=== PATIENT | male | born 1935 | race Caucasian/White ===

== ENCOUNTER 2017-01-23 15:07 | Inpatient (IN) | payer MEDICARE, OTHER ==
[~2017-01-23] VITALS: Ht 185.4 cm; Wt 89.0 kg
[~2017-01-23 15:07] MED LIST: ASPIRIN EC81 MG PO; B-50 COMPLEX1 EAC1 PO; CARVEDILOL25 MG PO; FLEXERIL10 MG PO; FUROSEMIDE40 MG PO; ISOSORBIDE MONO30 MG PO; LASIX40 MG PO; LOVASTATIN40 MG PO; MAG-OXIDE400 MG PO; MIRAPEX0.5 MG PO; NITROGLYCERIN0.4 MG SL; PLAVIX75 MG PO; POTASSIUM99 MG PO; PREVACID30 MG PO; SLOW-MAG71.5 MG PO; SYNTHROID100 MCG PO; ZYLOPRIM300 MG PO; ZYRTEC10 MG PO
[2017-01-23] MEDS ORDERED: VALIUM5 MG PO (15:20)
[2017-01-23] MEDS ORDERED: OMEPRAZOLE40 MG PO (15:23)
[2017-01-23] MEDS ORDERED: DILAUDID2 MG PO (15:25)
--- NOTE | 2017-01-23 20:00 | NUR ---
RECEIVED REPORT AT 1900. FOUND PT IN BED RESTING. I WAS TOLD IN REPORT THAT HE MAY HAVE GOTTEN ALL THE IV POTASSIUM IN THE ED. WILL CALL ED
--- NOTE | 2017-01-23 23:45 | NUR ---
ED TRIED TO CONTACT RN WHO HAD THIS PT IN THE ED. WE NEVER RECEIVED A CALL BACK.PT AT THIS TIME HAS POTASSIUM IV GOING AT 200ML/HR AND PT RECEIVED FIRST DOSE OF PO POTASSIUM AT AROUND 2230. PHRMACY WAS UNABLE TO RESCHEDULE PO POTASSIUM WHEN ASKED TO DO SO. ALL LOBES ARE CLEAR. PT HAS A UNSTEADY GAIT WHEN WALKING TO THE BATHROOM. BED ALARM IS ON BECAUSE PT IS NOT CALLING APPROPRIATLELY. PT ALSO IS VERY FORGETFUL. V/S ARE WNL. PT IS IN BED SLEEPING AT THIS TIME.
--- NOTE | 2017-01-24 02:11 | NUR ---
CCU CALLED DUE TO BRADYCARDIA INTO THE 30'S AND A 3.9SEC PAUSE ON THE TELE MONITOR. MD GEORGE WAS CALLED.
--- NOTE | 2017-01-24 04:24 | NUR ---
PT IS RESTING IN BED AT THIS TIME. SEVERAL TIMES THIS SHIFT PT HAS TRIED TO GET OUT OF BED WITHOUT CALLING US FIRST. PT IS NOT ABLE TO RETAIN INSTRUCTIONS GIVEN ABOUT USING THE CALL LIGHT BEFORE GETTING OUT OF BED. PT IS ORIENTED TO PERSON AND PLACE AT THIS TIME. PT AT TIMES ALSO APPEARS TO HAVE VISUAL HALLUCINATIONS. HE SEES PEOPLE AND OBJECTS THAT ARE NOT HERE.
--- NOTE | 2017-01-24 05:32 | NUR ---
PT WAS NOT ABLE TO CALL OUT APPROPROATELY THIS SHIFT. BED ALARM IS ON. PT IS ORIENTED TO PERSON, PLACE, EVENT AND TIME (SOMETIMES). PT HAD AN EPISODE OF BRADYCARDIA IN THE 30'S WITH UP TO 3.9SEC PAUSE ON THE TELE. MD GEORGE WAS NOTIFIED BY CCU STAFF. BMP WAS DRAWN WHICH SHOWED NO NEW SIGNIFICANT RESULTS. PT RECEIVED ALL SCHEDULED POTASIUM. LAST IV BAG WITH POTASSIUM IS STILL RUNNING. PT HAD NO N/V OR DIARRHEA THIS SHIFT.
--- NOTE | 2017-01-24 07:55 | NUR ---
PT AWAKE IN BED WITH BED ALARM ON. ASSISTED UP TO BATHROOM. NEW SOCKS AND GOWN GIVEN FOR URINE DRIPPED ON THEM WHILE ATTEMPTING TO USE URINAL IN BATHROOM. PT UP IN RECLINER WITH LEGS ELEVATED AND CHAIR ALARM IN PLACE. SALINE LOCKING IV NOW.
[2017-01-24] MEDS ORDERED: POTASSIUM CHLO10 ME1 PO (10:24)
--- NOTE | 2017-01-24 10:46 | NUR ---
PT IS SITTING IN CHAIR RECLINED WITH FEET UP AND TAG ALARM ON. PT DID NOT NEED ANYTHING ELSE AT THE MOMENT
--- NOTE | 2017-01-24 11:41 | NUR ---
pt sitting in recliner with chair alarm on. visiting at bedside. lunch delivered. taking potassium supps and carafate now.
--- NOTE | 2017-01-24 13:53 | NUR ---
OCCUPATIONAL THERAPY WORKING WITH PATIENT NOW. SITTING AT BEDSIDE. TELE LEADS CHECKED TO MAKE SURE THEY WERE IN CORRECT POSITION. CCU RN CHANGING SETTINGS ON SCREEN AT THIS TIME.
--- NOTE | 2017-01-24 14:59 | NUR ---
PT IS RESTING IN BED WITH EYES CLOSED, RESPERATIONS EVEN. PT WOKE UP FOR VITALS THEN WENT BACK TO SLEEP, PT SAID HE DID NOT NEED ANYTHING AT THE MOMENT JUST WANTED TO NAP
--- NOTE | 2017-01-24 17:41 | NUR ---
VERY FORGETFUL. ORIENTED TO SELF ONLY. SBA. BED ALARM.
--- NOTE | 2017-01-24 18:39 | NUR ---
WALKED IN ON PT ATTEMPTING TO UNHOOK HIS TAG ALARM THAT WAS ON WHILE HE SAT UP IN THE CHAIR, STATED HE NEEDED TO USE THE BATHROOM. HELPED HIM TO BATHROOM, AND THEN PT REQUESTED TO GO TO BED. PT IS NOW LYING IN BED SAFELY WITH BED ALARM ON. PT DID NOT NEED ANYTHING ELSE
--- NOTE | 2017-01-24 20:00 | NUR ---
RECEIVED REPORT AT 1900. FOUND PT IN BED SLEEPING.
--- NOTE | 2017-01-24 20:54 | EKG ---
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
--- NOTE | 2017-01-24 22:00 | NUR ---
PT AT THIS TIME IS ONLY ORIENTED TO SELF.TELE HAS BEEN D/C. PT ALSO RIPPED OUT HIS IV AND A NEW IV WAS INSERTED ON HIS LEFT FOREARM. IV FLUIDS ARE RUNNING AGAIN. ALL LOBES ARE CLEAR, V/S ARE WNL OVERALL. PT IS A ASSIST X1. NO NEW ISSUES NOTED AT THIS TIME.
--- NOTE | 2017-01-25 01:59 | NUR ---
PT SO FAR IS ONLY ORIENTED TO SELF.PT STILL IS GETTING OUT OF BED FREQUENTLY. PT IS COOPERATIVE THOUGH. IV FLUIDS ARE RUNNING. I ASSTISTED PT WITH URINAL SEVERAL TIMES. PT IS STILL WEAK AND UNSTEADY WHEN STANDING AND WALKING. NO NEW ISSUES NOTED AT THIS TIME.
--- NOTE | 2017-01-25 03:30 | NUR ---
NO CHANGE IN STATUS FOR THIS PT. ASSISTED PT WITH URINAL AGAIN. PT STATES THAT HE WANTS TO GO HOME AND SHOOT HIS BECAUSE HE IS HERE BECAUSE OF HER. PT IS ONLY ORIENTED TO SELF AT THIS TIME.
--- NOTE | 2017-01-25 05:39 | NUR ---
PT ATTEMPTED TO GET OUT OF BED SEVERAL TIMES BUT WAS VERY COOPERATIVE WHEN ASKED TO GO BACK TO BED. PT DID ONCE AGAIN NOT SLEEP THIS SHIFT. PT IS ONLY ORIENTED TO SELF. V/S ARE WNL SO FAR. NO NEW ISSUES NOTED THIS SHIFT. AT THIS TIME PT IS SITTING ON SIDE OF BED AND IS READING.
--- NOTE | 2017-01-25 09:41 | NUR ---
WHILE WALKING BY ROOM DOING VISUAL SAFETY CHECK, PT WAS STANDING AT THE CHAIR. STATED HE WAS GOING TO THE POT. PT GIVEN HIS WALKER AND ASSISTED TO THE BATHROOM.
--- NOTE | 2017-01-25 09:55 | NUR ---
PT STATED TO RN THAT HE THINKS HE HAD A STROKE 2-3 YEARS AGO, BUT DID NOT SEE A DOCTOR AT THAT TIME. [place] AND DID NOT WANT TO MISS THAT TRIP. STATES SINCE THAT EVENT HE HAS BEEN UNABLE TO WRITE OR DRAW WITH HIS RIGHT HAND.
--- NOTE | 2017-01-25 10:18 | NUR ---
PT IS SITTING UP IN CHAIR WITH CALL LIGHT IN REACH AND TAG ALARM ON. PT HAS AGREED TO SHOWER, WILL ASSIST HIM AFTER I HAVE FINISHED VITALS
--- NOTE | 2017-01-25 11:05 | NUR ---
ASSISTED PT WITH SHOWER AND PT IS NOW SITTING IN CHAIR WITH CALL LIGHT IN REACH AND TAG ALARM ON
--- NOTE | 2017-01-25 13:39 | NUR ---
PT IS IN BED, RESTING WITH EYES CLOSED. WAKES EASILY TO VOICE. ABLE TO DISCUSS DISTANT HISTORY, AWARE OF CURRENT SURROUNDINGS. SPOUSE REPORTS MORE CONFUSION THAN NORMAL. PT STATES HE SAW "IMAGAGES" LAST NIGHT, UNKNOWN TIMELINE.
--- NOTE | 2017-01-25 14:29 | NUR ---
RN ROUNDED WITH DR. GEORGE. DR GEORGE IS HAPPY WITH PROGRESS PT HAS MADE. CONTINUE WITH PHYSICAL THERAPY.
--- NOTE | 2017-01-25 14:30 | NUR ---
PT IS RESTING IN BED SAFELY WITH BED ALARM ON.
--- NOTE | 2017-01-25 17:21 | NUR ---
PT HAS PERIODS OF CLEAR THINKING. AFTER SLEEPING, HE BECOMES CONFUSED AND AGITATED. PT UP WITH PHYSICAL THERAPY THIS SHIFT, TOLERATED WALKING ONE LAP. MAG RIDER GIVEN, MAINT FLUIDS RUNNING. BED AND CHAIR ALARM ON D/T IMPULSIVITY. CT SCAN PREFORMED.
--- NOTE | 2017-01-25 18:20 | NUR ---
PT FINISHED DINNER AND IS NOW RECLINING IN CHAIR RESTING WITH EYES CLOSED, RESPERATIONS EVEN.
--- NOTE | 2017-01-25 18:48 | NUR ---
AGRICULTURE CONSULTANT REPORTED PT PICKING AT IV. RN ASSESSED IV, FLUSHED WELL WITH GOOD BLOOD RETURN. REINFORCED IV DRESSING AND WRAPPED WITH COBAN TO PROTECT SITE. PT BACK IN BED WITH BED ALARM ON.
--- NOTE | 2017-01-25 22:16 | NUR ---
ASSESSMENT WAS WNL. ASSISTED PT TO BATHROOM X2 SO FAR. PT IS STILL NOT CALLING INSTRUCTED BUT WAS ORIENTED TO PERSON, PLACE, CIRCUMSTANCE AND TIME. V/S ARE WNL. PT IS NOW SL. NO NEW ISSUES NOTED SO FAR THIS SHIFT.
--- NOTE | 2017-01-25 22:16 | NUR ---
RECEIVED REPORT AT 1900. FOUND PT IN BED SLEEPING.
--- NOTE | 2017-01-26 00:20 | NUR ---
PT IS SLEEPING AT THIS TIME.
--- NOTE | 2017-01-26 00:55 | NUR ---
ASSTISTED PT TO BATHROOM. PT IS BACK IN BED.
--- NOTE | 2017-01-26 03:21 | NUR ---
ASSISTED PT TO BATHROOM. PT AT THIS TIME IS SITTING AT SIDE OF BED AND IS READING. PT IS ORIENTED X4. PT HAS FOR THE FIRST TIME CALLED FOR ASSISTANCE.
--- NOTE | 2017-01-26 05:33 | NUR ---
PT OVERALL HAD A GOOD NIGHT. PT HAS BEEN CALLING US WHEN NEEDING TO GET UP SINCE ABOUT MIDNIGHT. . PT HAS REMAINED ORIENTED AND ALERT ALL SHIFT. PT HAS ALSO BEEN SLEEPING MUCH BETTER THIS SHIFT. V/S ARE WNL.
--- NOTE | 2017-01-26 08:24 | NUR ---
Patient sitting up in chair for breakfast, patient denies pain. Assessment complete. Patient very upset about having to go [facility] a pen[facility]entiary. Patient states, "if i knew I wouls have to go there I would never have come here at all" This RN talks with patient.
--- NOTE | 2017-01-26 09:31 | NUR ---
Patient up to work with PT, then to shower per sap plant maintenance consultant. Patient tolerating well.
--- NOTE | 2017-01-26 09:42 | NUR ---
Patient has fininshed shower. Sitting in chair with electric razor, "just shaping this kilpatrick up"
--- NOTE | 2017-01-26 10:47 | NUR ---
ASSISTED PT WITH SHOWER AND SHAVING, LINENS CHANGED, PT THEN WALKED TO THE CHAIR AND IS NOW RESTING SAFELY WITH TAG ALARM ON
--- NOTE | 2017-01-26 10:54 | NUR ---
DR GEORGE IN TO ROUND ON PATIENT. PATIENT VERY HAPPY HE DOES NOT NEED TO GO TO A SENIOR LIVING. PATIENT REMAINS PLEASANTLY CONFUSED, FORGETFUL AND DOES NOT REMEMBER TO USE CALL LIGHT. MD IS AWARE. PATIENT'S WILL BE AT HOME TO WATCH OVER HIM. THIS RN CALLS PATIENT'S WHO WILL BE UNALBE TO PICK HIM UP UNTIL 2:00.
[2017-01-26] MEDS ORDERED: ISOSORBIDE MONO30 MG PO (10:58)
[2017-01-26] MEDS ORDERED: MIRAPEX0.5 MG PO (10:59)
[2017-01-26] MEDS ORDERED: SUCRALFATE1 GM/10 ML PO (11:01)
[2017-01-26] MEDS ORDERED: ONDANSETRON HCL4 MG PO (11:02)
--- NOTE | 2017-01-26 11:16 | NUR ---
REMOVED IV, TIP INTACT. PATIENT AWAITING DC HOME. REMOVED CHAIR ALARM.
--- NOTE | 2017-01-26 13:15 | NUR ---
THIS RN ASSISTS PATIENT INTO CLOTHING FROM HOME. WILL WAIT TO GIVE DC INSTRUCTIONS UNTIL PATIENT'S ARRIVES PATIENT IS PLEASANTLY CONFUSED.
--- NOTE | 2017-01-26 14:52 | NUR ---
PATIENT LEAVES VIA WC WITH SECURITY SALES CONSULTANT. WAITING IN CAR. PATIENT IN NO DISTRESS.
== END 2017-01-26 14:48 | disposition home or self-care (01) | DRG 683 ==
LOC: ED 15:07 → MS 18:22
PROVIDERS: ADMIT Internal Medicine
DX: N17.9 Acute kidney failure, unspecified (principal); E87.1 Hypo-osmolality and hyponatremia; I13.0 Hypertensive heart and chronic kidney disease with heart failure and stage 1 through stage 4 chronic kidney disease, or unspecified chronic kidney disease; I50.32 Chronic diastolic (congestive) heart failure; E87.6 Hypokalemia; E86.0 Dehydration; Z79.1 Long term (current) use of non-steroidal anti-inflammatories (NSAID); K29.70 Gastritis, unspecified, without bleeding; T39.395A Adverse effect of other nonsteroidal anti-inflammatory drugs [NSAID], initial encounter; R63.4 Abnormal weight loss; R53.81 Other malaise; G31.84 Mild cognitive impairment of uncertain or unknown etiology; N18.2 Chronic kidney disease, stage 2 (mild); E03.9 Hypothyroidism, unspecified; G89.4 Chronic pain syndrome; G25.81 Restless legs syndrome; K21.9 Gastro-esophageal reflux disease without esophagitis; E78.5 Hyperlipidemia, unspecified; M10.9 Gout, unspecified; Z86.73 Personal history of transient ischemic attack (TIA), and cerebral infarction without residual deficits; N40.0 Benign prostatic hyperplasia without lower urinary tract symptoms
CPT/HCPCS: 36415; 71010; 71260; 74177; 80048; 80053; 80069; 81001; 83735; 83880; 84132; 84439; 84443; 84484; 85025; 93005; 93010; 97110; 97116; 97163; 97166; 97530; J1650; J3475; J3480; J7030; Q9967

== ENCOUNTER 2017-06-24 | Observation (INO) | payer MEDICARE, OTHER ==
[~2017-06-24] VITALS: Ht 185.4 cm; Wt 78.8 kg
[~2017-06-24] MED LIST changes: +DILAUDID2 MG PO; +OMEPRAZOLE40 MG PO; +ONDANSETRON HCL4 MG PO; +POTASSIUM CHLO10 ME1 PO; +SUCRALFATE1 GM/10 ML PO; +VALIUM5 MG PO
--- OUTSIDE RECORDS SUMMARY | 2017-06-24 00:31 | XMS | Clinical Summary ---
Demographics + + + | Address | [address] | | | [place] [address] | + + + | Home Phone | | + + + | Preferred Language | Unknown | + + + | Marital Status | Single | + + + | Temple Affiliation | UNK | + + + | Race | Unknown | + + + | Ethnic Group | Other Race | + + + Author + + + | Author | [facility] | + + + | Organization | [facility] | + + + | Address | Unknown | + + + | Phone | Unavailable | + + + Support +------+ +---------+ + | Name | Relationship | Address | Phone | +------+ +---------+ + ECON | Unknown | Unavailable | +------+ +---------+ + Care Team Providers + +------+ + | Care Order Clerk Name | Role | Phone | + +------+ + PP | Unavailable | + +------+ + Source Comments ANA is fully live on both [facility] and [facility] InPatient.[facility] Allergies Not on File Current Medications Not on file Active Problems Not on file Social History + +-------+ +--------+------+ | Tobacco Use | Types | Packs/Day | Years | Date | | | | | Used | | + +-------+ +--------+------+ | Never Assessed | | | | | + +-------+ +--------+------+ + + + | Sex Assigned at | Date Recorded | | | | + + + | Not on file | | + + + Plan of Treatment + + + + + | Health Maintenance | Due Date | Last Done | Comments | + + + + + | INFLUENZA VACCINE | | | | | (FLU SHOT) | 7 | | | + + + + + Results Not on filefrom Last 3 Months"
--- OUTSIDE RECORDS SUMMARY | 2017-06-24 00:31 | XMS | Clinical Summary ---
Demographics + + + | Address | [address] | | | [place] [address] | + + + | Home Phone | | + + + | Preferred Language | Unknown | + + + | Marital Status | Single | + + + | Orthodox Affiliation | UNK | + + + [...] Team Providers + +------+ + | Care Street Openings Inspector Name | Role | Phone | + +------+ + PP | Unavailable | + +------+ + Source Comments ANA is fully live on both [facility] and [facility] InPatient.[facility] Allergies Not on File Current Medications [...]
--- OUTSIDE RECORDS SUMMARY | 2017-06-24 02:20 | XMS | Clinical Summary ---
Demographics + + + | Address | [address] | | | [place] [address] | + + + | Home Phone | | + + + | Preferred Language | Unknown | + + + | Marital Status | Single | + + + | Evangelical Affiliation | UNK | + + + [...] Team Providers + +------+ + | Care Post Tensioning Ironworker Name | Role | Phone | + +------+ + PP | Unavailable | + +------+ + Source Comments ANA is fully live on both [facility] and [facility] InPatient.[facility] Allergies Not on File Current Medications [...]
--- NOTE | 2017-06-24 02:50 | NUR ---
HELPED GET PT MOVED TO THE BED. VITALS DONE AND CHARTED. FRESH WATER GIVEN. BROUGHT A TELE WITH BATTERY FROM CCU. BEDSIDE TABLE AND CALL LIGHT WITHIN REACH.
--- NOTE | 2017-06-24 03:49 | NUR ---
PT BLOOD PREASURE WAS 199/87. RECHECKED 164/71.
--- NOTE | 2017-06-24 03:54 | NUR ---
VITALS DONE AND CHARTED. LET RN KNOW.
--- NOTE | 2017-06-24 05:08 | NUR ---
RECIEVED PT FROM ED VIA STRETCHER. PT ON TELE 10. CONTINUE PULSE OX IN PLACE. PT IS FORGETFUL. VSS TAKEN. BED ALARM SET. STARTED NS @ 75ML/HR. PT ADMITTED FOR OBSERVATION. REPORTS NO PAIN AT THIS TIME.
--- NOTE | 2017-06-24 05:19 | NUR ---
PT ON TELE 10. CONTINUE PULSE OX IN PLACE. STA WITH FWW. IV 18G LEFT HAND PT IS FORGETFUL. VSS TAKEN INCREASED BP. REGULAR DIET. ON ROOM AIR. BED ALARM SET. STARTED NS @ 75ML/HR. PT ADMITTED FOR OBSERVATION. REPORTS NO PAIN AT THIS TIME.
--- NOTE | 2017-06-24 06:24 | NUR ---
MORNING MEDS PASSED. PT A/O X4. NEURO CHECK COMPLETED. NO NEW FINDINGS. CALL LIGHT WITHIN REACH. PERSONAL ITEMS AT BEDSIDE.
--- NOTE | 2017-06-24 07:18 | EKG ---
[facility] [address] [place] [address] Signed Sinus rhythm with 1st degree AV block with premature atrial complexes Right bundle branch block Abnormal ECG When compared with ECG of 23-JAN-2017 16:07, QRS axis shifted right Criteria for Inferior infarct are no longer present Confirmed by JANUSZ CHACON MD ([id number]) on 06/24/2017 7:18:33 AM Electronically Signed By: JANUSZ CHACON MD 06/24/17 0718 PATIENT NAME: ASHLEE ZAMAN Electrocardiogram DATE OF : 33 PHYSICIAN: JANUSZ CHACON MD REPORT #: [id number] REPORT IS CONFIDENTIAL AND NOT TO BE RELEASED WITHOUT AUTHORIZATION
--- NOTE | 2017-06-24 07:27 | NUR ---
REPORT FROM CASPER GOLDSTEIN. PT AWAKE AND PLACED BREAKFAST ORDER. PT HOPES TO GO HOME TODAY AND STATES ALL S\S HAVE DISAPPEARED.
--- NOTE | 2017-06-24 07:30 | NUR ---
pt daughter loly called for udate. pt agreed to give information to the daughter./ updated her on plan of care and admission. transfered to pt room.
--- NOTE | 2017-06-24 08:06 | NUR ---
PATIENT WASHED HIS FACE ALREADY ATE BREAKFAST. GOT HIM SOME NEW ICE WATER.
--- NOTE | 2017-06-24 08:42 | NUR ---
PT ASSESSMENT DONE. RIGHT HAND DRAGLINE OILER SLIGHTLY WEAKER THAN LEFT AND RIGHT LEG NOTABLY WEAKER THAN LEFT LEG. PT ABLE TO TELL DIFFERENCE ALTHOUGH WHEN STANDING STATES IT DOESNT FEEL ANY DIFFERENT AND IS WEAKER IN RIGHT KNEE FROM PRIOR SURGERY. PT ABLE TO SMILE AND STICK OUT TONGUE WNL. DENIES LOSS OF SENSATION. ADMINISTERED MEDS. WAITING FOR KRIDER.
--- NOTE | 2017-06-24 09:38 | NUR ---
WHILE CHANGING GOWN PT'S IV FELL OUT. PLACED NEW ONE IN SAME ARM WO DIFF. PT TOLERATED WELL. KRIDER AND FLUIDS INFUSING. PT DENIES CONCNERNS.
--- NOTE | 2017-06-24 12:01 | NUR ---
PATIENT REFUSED SHOWER. SLEEPING RIGHT NOW.
--- NOTE | 2017-06-24 13:59 | NUR ---
PT BACK FROM MRI. STATES HE FEELS GOOD. REATTACHED TO IV AND WILL RUN THE LAST BIT OF POTASSIUM. ASSESSMENT DONE.
[2017-06-24] MEDS ORDERED: LEVOTHYROXINE88 MCG PO (14:48)
[2017-06-24] MEDS ORDERED: ASPIRIN325 MG PO (14:50)
[2017-06-24] MEDS ORDERED: POTASSIUM CHLO10 MEQ PO (14:51)
--- NOTE | 2017-06-24 16:10 | NUR ---
PT DISCHARGED HOME WITH . EDUCATION GIVEN REGARDING S\S OF STROKE TO WATCH FOR AND WHEN TO CALL DR OR GO TO ED. PT VS STABLE AND ADVISED PT TO MONITOR BP IT HAS BEEN RUNNING A LITTLE HIGH AND TO CALL DR WHITE IF IT REMAINS HIGH. PT AND VERBALIZED UNDERSTANDING. WHEELED OUT TO CAR. IV REMOVED WNL.
== END 2017-06-24 16:00 | disposition home or self-care (01) ==
LOC: ED → MS 00:01
PROVIDERS: ADMIT Internal Medicine
DX: G45.9 Transient cerebral ischemic attack, unspecified (principal); E78.5 Hyperlipidemia, unspecified; I10 Essential (primary) hypertension; E87.6 Hypokalemia; I25.10 Atherosclerotic heart disease of native coronary artery without angina pectoris; E11.9 Type 2 diabetes mellitus without complications; M10.9 Gout, unspecified; K21.9 Gastro-esophageal reflux disease without esophagitis; I69.351 Hemiplegia and hemiparesis following cerebral infarction affecting right dominant side; Z66 Do not resuscitate; Z79.82 Long term (current) use of aspirin; Z79.899 Other long term (current) drug therapy; Z95.5 Presence of coronary angioplasty implant and graft; Z95.1 Presence of aortocoronary bypass graft; Z88.5 Allergy status to narcotic agent; Z88.8 Allergy status to other drugs, medicaments and biological substances
CPT/HCPCS: 36415; 70450; 70551; 71045; 80048; 80053; 85025; 85610; 85730; 93005; 93010; 94760; 96105; 96365; 96366; 96372; 99285; G0378; G9159; G9160; G9161; J1650; J3480; J7030; J7040

== ENCOUNTER 2018-01-16 07:29 | Emergency (ER) | payer MEDICARE, OTHER ==
[~2018-01-16] VITALS: Ht 185.4 cm; Wt 86.2 kg
[~2018-01-16 07:29] MED LIST changes: +ASPIRIN325 MG PO; +LEVOTHYROXINE88 MCG PO; +POTASSIUM CHLO10 MEQ PO
[2018-01-16] MEDS ORDERED: CARVEDILOL25 MG PO (07:45)
[2018-01-16] MEDS ORDERED: LASIX40 MG PO (07:46)
== END 2018-01-16 11:20 | disposition home or self-care (01) ==
LOC: ED 07:29
DX: E86.0 Dehydration (principal); E83.42 Hypomagnesemia; E11.9 Type 2 diabetes mellitus without complications; I11.0 Hypertensive heart disease with heart failure; I50.9 Heart failure, unspecified; Z87.891 Personal history of nicotine dependence; Z88.5 Allergy status to narcotic agent; Z88.8 Allergy status to other drugs, medicaments and biological substances; Z79.82 Long term (current) use of aspirin; Z79.899 Other long term (current) drug therapy
CPT/HCPCS: 70450; 71045; 80053; 81001; 83735; 85025; 96360; 99284; J7030

== ENCOUNTER 2019-10-02 11:46 | Emergency (ER) | payer MEDICARE ==
[~2019-10-02] VITALS: Ht 185.4 cm; Wt 86.2 kg
--- OUTSIDE RECORDS SUMMARY | ~2019-10-02 | XMS | Encounter Summary ---
Demographics + + + | Address | [address] | | | [place] [address] | + + + | Home Phone | | + + + | Preferred Language | Unknown | + + + | Marital Status | | + + + | Faith Affiliation | 1077 | + + + | Race | Unknown | + + + | Ethnic Group | Unknown | + + + Author + + + | Author | [facility] | | | and [place] | + + + | Organization | [facility] | | | and [place] | + + + | Address | Unknown | + + + | Phone | Unavailable | + + + Support + + +---------+ + | Name | Relationship | Address | Phone | + + +---------+ + | Rhona Pinon | ECON | Unknown | | + + +---------+ + | Rhonamakayla Pinon | ECON | Unknown | | + + +---------+ + Care Team Providers + +------+ + | Care Muck Operator Name | Role | Phone | + +------+ + | Osbaldo Wood MD | PCP | | + +------+ + Encounter Details +--------+ + + + + | Date | Type | Department | Care Team | Description | +--------+ + + + + | 02/28/ | Orders Only | [facility] | Sheldon Nye, | | | 2014 | | NEPHROLOGY [place] | [facility] | | | | | [address] | [address] | | | | | [address] [facility] [place] | [place], [place] | | | | | [address] | [address] | | | | | [phone] | [phone] | | | | | | | | +--------+ + + + + Social History + +-------+ +--------+------+ | Tobacco [...] on file | | + + + + + + + | Job Start Date | Occupation | Industry | + + + + | Not on file | Not on file | Not on file | + + + + + + + + | Travel History | Travel Start | Travel End | + + + + + + | No recent travel history available. | + + documented as of this encounter Plan of Treatment +--------+---------+ + + + | Date | Type | Specialty | Care Team | Description | +--------+---------+ + + + | 02/25/ | Office | Cardiology | Hans Blanco, | | | 2019 | Visit | | MD [address] | | | | | | [place], | | | | | | [place] [address] | | | | | | [phone] | | | | | | | | +--------+---------+ + + + documented as of this encounter Procedures + +--------+ + + + | Procedure Name | Priori | Date/Time | Associated Diagnosis | Comments | | | ty | | | | + +--------+ + + + | EXTERNAL LAB: CHIQUITA | Routin | 02/28/2015 | | Results for this | | | e | 12:00 AM | | procedure are in the | | | | PDT | | results section. | + +--------+ + + + | LIPID PANEL | Routin | 02/28/2015 | | Results for this | | | e | 12:00 AM | | procedure are in the | | | | PDT | | results section. | + +--------+ + + + | VITAMIN D, | Routin | 02/28/2015 | | Results for this | | DEFICIENCY SCREEN | e | 12:00 AM | | procedure are in the | | (25-HYDROXY) | | PDT | | results section. | + +--------+ + + + | URINALYSIS, | Routin | 02/28/2015 | | Results for this | | MICROSCOPIC ONLY | e | 12:00 AM | | procedure are in the | | | | PDT | | results section. | + +--------+ + + + | MICROALBUMIN/CREATIN | Routin | 02/28/2015 | | Results for this | | INE RATIO, URINE | e | 12:00 AM | | procedure are in the | | TEST | | PDT | | results section. | + +--------+ + + + | URIC ACID | Routin | 02/28/2015 | | Results for this | | | e | 12:00 AM | | procedure are in the | | | | PDT | | results section. | + +--------+ + + + | TSH | Routin | 02/28/2015 | | Results for this | | | e | 12:00 AM | | procedure are in the | | | | PDT | | results section. | + +--------+ + + + | T4, FREE | Routin | 02/28/2015 | | Results for this | | | e | 12:00 AM | | procedure are in the | | | | PDT | | results section. | + +--------+ + + + | MAGNESIUM | Routin | 02/28/2015 | | Results for this | | | e | 12:00 AM | | procedure are in the | | | | PDT | | results section. | + +--------+ + + + | RENAL FUNCTION PANEL | Routin | 02/28/2015 | | Results for this | | | e | 12:00 AM | | procedure are in the | | | | PDT | | results section. | + +--------+ + + + documented in this encounter Results Microalbumin/Creatinine Ratio, Urine (02/28/2015 12:00 AM PDT) + + + + + + | Component | Value | Ref Range | Performed | Pathologist | | | | | At | Signature | + + + + + + | ALBUMIN/CRE | 885.6 (A) | 0 - 30 | EXTERNAL | | | ATININE | | | LAB | | | RATIO.URINE | | | | | | .ORD.MG/G | | | | | | (SALVADOR) | | | | | | | | | | | | | | | | | + + + + + + + + | Specimen | + + | Urine specimen | | (specimen) | + + + +---------+ + + | Performing | Address | City/State/Zipcode | Phone Number | | Organization | | | | + +---------+ + + | EXTERNAL LAB | | | | + +---------+ + + Vitamin D, Deficiency Screen (25-Hydroxy) (02/28/2015 12:00 AM PDT) + +-------+ + + + | Component | Value | Ref Range | Performed | Pathologist | | | | | At | Signature | + +-------+ + + + | Vit D, | 52 | 30 - 100 | EXTERNAL | | | 25-Hydroxy | | | LAB | | + +-------+ + + + + + | Specimen | + + | Blood specimen | | (specimen) | + + + +---------+ + + | Performing | Address | City/State/Zipcode | Phone Number | | Organization | | | | + +---------+ + + | EXTERNAL LAB | | | | + +---------+ + + Urinalysis, Microscopic Only (02/28/2015 12:00 AM PDT) + + + + + + | Component | Value | Ref Range | Performed | Pathologist | | | | | At | Signature | + + + + + + | Color | [place] | | EXTERNAL | | | | | | LAB | | + + + + + + | Clarity | Clear | | EXTERNAL | | | | | | LAB | | + + + + + + | Specific | 1.014 | 1.005 - 1.030 | EXTERNAL | | | [place], | | | LAB | | | Urine | | | | | + + + + + + | Leukocyte | Negative | | EXTERNAL | | | Esterase, | | | LAB | | | Urine | | | | | + + + + + + | Nitrite, | Negative | | EXTERNAL | | | Urine | | | LAB | | + + + + + + | Urobilinoge | Normal | | EXTERNAL | | | n, Urine | | | LAB | | + + + + + + | Protein, | 1+Comment: 150 | | EXTERNAL | | | Urine | | | LAB | | + + + + + + | pH, Urine | 7 | 5 - 9 | EXTERNAL | | | | | | LAB | | + + + + + + | Blood, | Negative | | EXTERNAL | | | Urine | | | LAB | | + + + + + + | Ketones | Negative | | EXTERNAL | | | | | | LAB | | + + + + + + | Bilirubin, | Negative | | EXTERNAL | | | Urine | | | LAB | | + + + + + + | Glucose, | Negative | | EXTERNAL | | | Urine | | | LAB | | + + + + + + + + | Specimen | + + | Urine specimen | | (specimen) | + + + +---------+ + + | Performing | Address | City/State/Zipcode | Phone Number | | Organization | | | | + +---------+ + + | EXTERNAL LAB | | | | + +---------+ + + External Lab: CBC (02/28/2015 12:00 AM PDT) + + + + + + | Component | Value | Ref Range | Performed | Pathologist | | | | | At | Signature | + + + + + + | WBC | 6.1 | 4.5 - 11.0 10 | EXTERNAL | | | | | | LAB | | + + + + + + | Red Blood | 4.73 | 4.3 - 5.7 10 | EXTERNAL | | | Cells | | | LAB | | | Counted | | | | | + + + + + + | Hemoglobin | 15.4 | 13.5 - 18.0 | EXTERNAL | | | | | g/dL | LAB | | + + + + + + | Hematocrit, | 46.2 | 41 - 50 % | EXTERNAL | | | POC | | | LAB | | + + + + + + | MCV | 97.7 | 81 - 99 fL | EXTERNAL | | | | | | LAB | | + + + + + + | MCH | 33 | 27 - 33 pg | EXTERNAL | | | | | | LAB | | + + + + + + | MCHC | 33 | 30 - 36 g/dL | EXTERNAL | | | | | | LAB | | + + + + + + | Platelet | 189 | 140 - 440 K/ L | EXTERNAL | | | Count | | | LAB | | | Plasma | | | | | + + + + + + | RDW-CV | 15.2 (A) | 10.5 - 15.0 % | EXTERNAL | | | | | | LAB | | + + + + + + | MPV | | fL | EXTERNAL | | | | | | LAB | | + + + + + + | Differentia | Auto | | EXTERNAL | | | l Type | | | LAB | | + + + + + + | % Segmented | 49.4 | 39 - 80 % | EXTERNAL | | | | | | LAB | | | Neutrophils | | | | | + + + + + + | % | 34.0 | 24 - 44 % | EXTERNAL | | | Lymphocytes | | | LAB | | + + + + + + | % Monocytes | 8.6 | 0 - 12 % | EXTERNAL | | | | | | LAB | | + + + + + + | % | 7.1 (A) | 0 - 6 % | EXTERNAL | | | Eosinophils | | | LAB | | + + + + + + | % Basophils | 0.9 | 0 - 2 % | EXTERNAL | | | | | | LAB | | + + + + + + | Absolute | | / L | EXTERNAL | | | Segmented | | | LAB | | | Neutrophils | | | | | + + + + + + | Absolute | | / L | EXTERNAL | | | Lymphocytes | | | LAB | | + + + + + + | Absolute | | / L | EXTERNAL | | | Monocytes | | | LAB | | + + + + + + | Absolute | | / L | EXTERNAL | | | Eosinophils | | | LAB | | + + + + + + | Absolute | | / L | EXTERNAL | | | Basophils | | | LAB | | + + + + + + + + | Specimen | + + | Blood specimen | | (specimen) | + + + +---------+ + + | Performing | Address | City/State/Zipcode | Phone Number | | Organization | | | | + +---------+ + + | EXTERNAL LAB | | | | + +---------+ + + Uric Acid (02/28/2015 12:00 AM PDT) + +-------+ + + + | Component | Value | Ref Range | Performed | Pathologist | | | | | At | Signature | + +-------+ + + + | Uric Acid | 5.5 | 4.4 - 7.6 | EXTERNAL | | | | | | LAB | | + +-------+ + + + + + | Specimen | + + | Blood specimen | | (specimen) | + + + +---------+ + + | Performing | Address | City/State/Zipcode | Phone Number | | Organization | | | | + +---------+ + + | EXTERNAL LAB | | | | + +---------+ + + TSH (02/28/2015 12:00 AM PDT) + +-------+ + + + | Component | Value | Ref Range | Performed | Pathologist | | | | | At | Signature | + +-------+ + + + | TSH | 2.51 | 0.270 - 4.20 | EXTERNAL | | | | | uIU/mL | LAB | | + +-------+ + + + + + | Specimen | + + | Blood specimen | | (specimen) | + + + +---------+ + + | Performing | Address | City/State/Zipcode | Phone Number | | Organization | | | | + +---------+ + + | EXTERNAL LAB | | | | + +---------+ + + T4, Free (02/28/2015 12:00 AM PDT) + +-------+ + + + | Component | Value | Ref Range | Performed | Pathologist | | | | | At | Signature | + +-------+ + + + | FREE T4 | 1.25 | 0.71 - 1.7 | EXTERNAL | | | (REF) | | | LAB | | + +-------+ + + + + + | Specimen | + + | Blood specimen | | (specimen) | + + + +---------+ + + | Performing | Address | City/State/Zipcode | Phone Number | | Organization | | | | + +---------+ + + | EXTERNAL LAB | | | | + +---------+ + + Magnesium (02/28/2015 12:00 AM PDT) + +-------+ + + + | Component | Value | Ref Range | Performed | Pathologist | | | | | At | Signature | + +-------+ + + + | Magnesium | 1.7 | 1.7 - 2.5 mg/dL | EXTERNAL | | | | | | LAB | | + +-------+ + + + + + | Specimen | + + | Blood specimen | | (specimen) | + + + +---------+ + + | Performing | Address | City/State/Zipcode | Phone Number | | Organization | | | | + +---------+ + + | EXTERNAL LAB | | | | + +---------+ + + Renal Function Panel (02/28/2015 12:00 AM PDT) + + + + + + | Component | Value | Ref Range | Performed | Pathologist | | | | | At | Signature | + + + + + + | Glucose, | 174 (A) | 70 - 100 mg/dL | EXTERNAL | | | Fasting | | | LAB | | + + + + + + | BUN | 22 | 6 - 23 mg/dL | EXTERNAL | | | | | | LAB | | + + + + + + | Creatinine | 1.33 (A) | 0.70 - 1.11 | EXTERNAL | | | | | mg/dL | LAB | | + + + + + + | PHOSPHORUS | | mg/dL | EXTERNAL | | | | | | LAB | | + + + + + + | Albumin | 4.3 | 3.5 - 5.0 | EXTERNAL | | | | | | LAB | | + + + + + + | Na | 134 | 132 - 143 | EXTERNAL | | | | | mmol/L | LAB | | + + + + + + | K | 3.9 | 3.6 - 5.1 | EXTERNAL | | | | | mmol/L | LAB | | + + + + + + | Cl | 96 | 95 - 112 mmol/L | EXTERNAL | | | | | | LAB | | + + + + + + | CO2 | 26 | 19 - 31 mmol/L | EXTERNAL | | | | | | LAB | | + + + + + + | Anion Gap | 15.9 | 7 - 21 mmol/L | EXTERNAL | | | | | | LAB | | + + + + + + | eGFR if not | | | EXTERNAL | | | | | | LAB | | | [place] | | | | | + + + + + + | Phosphorus, | 3.5 | 2.5 - 5.0 | EXTERNAL | | | Inorganic | | | LAB | | + + + + + + | BUN/Creatin | 16.5 | 6.0 - 28.6 | EXTERNAL | | | ine Ratio | | | LAB | | + + + + + + | Calcium | 9.9 | 8.4 - 10.2 | EXTERNAL | | | | | mg/dL | LAB | | + + + + + + | Estimated | 52 (A) | 60 - 140 mg/dL | EXTERNAL | | | GFR | | | LAB | | + + + + + + + + | Specimen | + + | Blood specimen | | (specimen) | + + + +---------+ + + | Performing | Address | City/State/Zipcode | Phone Number | | Organization | | | | + +---------+ + + | EXTERNAL LAB | | | | + +---------+ + + Lipid Panel (02/28/2015 12:00 AM PDT) + + + + + + | Component | Value | Ref Range | Performed | Pathologist | | | | | At | Signature | + + + + + + | Cholesterol | 164 | 200 mg/dL | EXTERNAL | | | | | | LAB | | + + + + + + | Triglycerid | 295 (A) | 30 - 150 mg/dL | EXTERNAL | | | es | | | LAB | | + + + + + + | HDL | 29.2 (A) | 40 mg/dl | EXTERNAL | | | | | | LAB | | + + + + + + | LDL, | | mg/dL | EXTERNAL | | | Calculated | | | LAB | | + + + + + + | LDl/HDL | | | EXTERNAL | | | Ratio | | | LAB | | + + + + + + | Chol/HDL | 5.6 (A) | 4.97 | EXTERNAL | | | Ratio | | | LAB | | + + + + + + | VLDL | 59 (A) | 4 - 40 mg/dL | EXTERNAL | | | | | | LAB | | + + + + + + | Non HDL | 135 (A) | 130 | EXTERNAL | | | Chol. | | | LAB | | | (LDL+VLDL) | | | | | + + + + + + + + | Specimen | + + | Blood specimen | | (specimen) | + + + +---------+ + + | Performing | Address | City/State/Zipcode | Phone Number | | Organization | | | | + +---------+ + + | EXTERNAL LAB | | | | + +---------+ + + documented in this encounter Visit Diagnoses Not on filedocumented in this encounter"
--- OUTSIDE RECORDS SUMMARY | ~2019-10-02 | XMS | Encounter Summary ---
Demographics + + + | Address | [address] | | | [place] [address] | + + + | Home Phone | | + + + | Preferred Language | Unknown | + + + | Marital Status | | + + + | Nondenominational Affiliation | 1077 | + + + | Race | Unknown | + + + | Ethnic Group | Unknown | + + + Author + + + | Author | [facility] | | | and [place] | + + + | Organization | [facility] | | [...] Team Providers + +------+ + | Care Home Care Liaison Name | Role | Phone | + +------+ + | Osbaldo Wood MD | PCP | | + +------+ + Encounter Details +--------+ + + + + | Date | Type | Department | Care Team | Description | +--------+ + + + + | 02/21/ | Hospital | [facility] | Hans Blanco, | | | 2020 | Encounter | [facility] | [address] | | | | | [address] [place] | [place], | | | | | [place], [place] | [place] [address] | | | | | [address] | [phone] | | | | | [phone] | | | +--------+ + + + [...] + + documented as of this encounter Medications at Time of Discharge + + + +---------+ + + | Medication | Sig | Dispensed | Refills | Start | End Date | | | | | | Date | | + + + +---------+ + + | acetaminophen | Place 650 mg | | 0 | | | | (TYLENOL) 650 mg | rectally every 4 | | | | | | suppository | hours as needed for | | | | | | | Fever. | | | | | + + + +---------+ + + | allopurinol | Take 100 mg by mouth | | 0 | | | | (ZYLOPRIM) 100 mg | Daily. | | | | | | tablet | | | | | | + + + +---------+ + + | amLODIPine | TAKE ONE TABLET BY | 90 | 3 | 10/10/19 | | | (NORVASC) 5 mg | MOUTH DAILY | tablet | | 19 | | | tablet | | | | | | + + + +---------+ + + | aspirin 325 mg EC | Take 325 mg by mouth | | 0 | | | | tablet | Daily. | | | | | + + + +---------+ + + | B Complex Vitamins | Take 1 tablet by | | 0 | | | | (B COMPLEX 1 PO) | mouth Daily. | | | | | + + + +---------+ + + | cetirizine | Take 10 mg by mouth | | 0 | | | | (ZYRTEC) 10 mg | Daily. | | | | | | tablet | | | | | | + + + +---------+ + + | cloNIDine | Take 1 tablet by | 30 | 5 | 05/07/20 | | | (CATAPRES) 0.1 mg | mouth Daily as | tablet | | 18 | | | tablet | needed. For systolic | | | | | | | blood pressure of | | | | | | | 160 or above | | | | | + + + +---------+ + + | gabapentin | Take 300 mg by mouth | | 0 | | | | (NEURONTIN) 300 mg | nightly. | | | | | | capsule | | | | | | + + + +---------+ + + | isosorbide | Take 30 mg by mouth | | 0 | | | | mononitrate (IMDUR) | Daily. Take one in | | | | | | 30 mg ER tablet | the morning and | | | | | | | somtime takes one in | | | | | | | the Evening if | | | | | | | chest pain | | | | | + + + +---------+ + + | levothyroxine | Take 88 mcg by mouth | | 0 | | | | (SYNTHROID) 88 mcg | every morning | | | | | | tablet | (before breakfast). | | | | | + + + +---------+ + + | lisinopril | Take 1 tablet by | 60 | 0 | 03/11/20 | | | (PRINIVIL, ZESTRIL) | mouth 2 times daily. | tablet | | 18 | | | 20 mg tablet | | | | | | + + + +---------+ + + | Magnesium | Take 1 tablet by | | 0 | | | | Cl-Calcium Carbonate | mouth 2 times daily. | | | | | | (SLOW-MAG PO) | | | | | | + + + +---------+ + + | nitroglycerin | Place 0.4 mg under | | 0 | | | | (NITROSTAT) 0.4 mg | the tongue every 5 | | | | | | SL tablet | minutes as needed | | | | | | | for Chest pain. | | | | | + + + +---------+ + + | omeprazole | Take 40 mg by mouth | | 0 | | | | (PRILOSEC) 40 MG | every morning | | | | | | capsule | (before breakfast). | | | | | + + + +---------+ + + | rosuvastatin | Take 1 tablet by | 30 | 5 | 07/31/19 | | | (CRESTOR) 20 mg | mouth nightly. | tablet | | 20 | | | tabletIndications: | | | | | | | CAD, multiple vessel | | | | | | + + + +---------+ + + | torsemide | Take 1 tablet by | 30 | 5 | 07/31/19 | | | (DEMADEX) 10 mg | mouth Daily. | tablet | | 20 | | | tablet | | | | | | + + + +---------+ + + documented as of this encounter [...] [place], | | | | | | [place] [address] | | | | | | [phone] | | | | | | | | +--------+---------+ + + + documented as of this encounter Visit Diagnoses Not on filedocumented in this encounter"
--- OUTSIDE RECORDS SUMMARY | ~2019-10-02 | XMS | Encounter Summary ---
Demographics + + + | Address | [address] | | | [place] [address] | + + + | Home Phone | | + + + | Preferred Language | Unknown | + + + | Marital Status | | + + + | Lutheran Affiliation | 1077 | + + + | Race | Unknown | + + + | Ethnic Group | Unknown | + + + Author + + + | Author | [facility] | | | and [place] | + + + | Organization | [facility] | | | and [...] Team Providers + +------+ + | Care Chef Teacher Name | Role | Phone | + +------+ + | No, Unknownpcp | PCP | | + +------+ + Reason for Visit Auth/Cert +--------+--------+ + + + + | Status | Reason | Specialty | Diagnoses / | Referred By | Referred To | | | | | Procedures | Contact | Contact | +--------+--------+ + + + + | Closed | | | Diagnoses | | | | | | | Retention | | | | | | | of urine, | | | | | | | unspecified | | | | | | | Hypertrophy | | | | | | | of prostate | | | | | | | with | | | | | | | urinary | | | | | | | obstruction | | | | | | | and other | | | | | | | lower | | | | | | | urinary | | | | | | | tract | | | | | | | symptoms | | | | | | | (LUTS) | | | | | | | Retention of | | | | | | | urine, | | | | | | | unspecified, | | | | | | | Hypertrophy | | | | | | | of prostate | | | | | | | with | | | | | | | urinary | | | | | | | obstruction | | | | | | | and other | | | | | | | lower | | | | | | | urinary | | | | | | | tract | | | | | | | symptoms | | | | | | | (LUTS) | | | | | | | Procedures | | | | | | | CT LASER | | | | | | | VAPORIZATION | | | | | | | SURGERY | | | | | | | PROSTATE, | | | | | | | COMPLETE | | | | | | | CYSTOSCOPY | | | | | | | PROSTATE | | | | | | | VAPORIZATION | | | | | | | | | | | | | | TRANSURETHER | | | | | | | AL | | | +--------+--------+ + + + + Encounter Details +--------+---------+ + + + | Date | Type | Department | Care Team | Description | +--------+---------+ + + + | 07/30/ | Surgery | [facility] | Sony Oconnell MD | Cyber Laser | | 2014 | | MED CTR OR INTRA OP | [address] [facility] | Vaporization of the | | | | [address] | [place], [place] | Prostate | | | | [place], [place] | [address] | | | | | [address] | [phone] | | | | | [phone] | | | +--------+---------+ + + + Social History + +-------+ +--------+ + | Tobacco Use | Types | Packs/Day | Years | Date | | | | | Used | | + +-------+ +--------+ + | Former Smoker | | | | Quit: 06/10/1954 | + +-------+ +--------+ + + + +---------+ + | Alcohol Use [...] + + + | Blood Pressure | 146/71 | 07/30/2014 3:40 PM | | | | | PST | | + + + + + | Pulse | 50 | 07/30/2014 3:40 PM | | | | | PST | | + + + + + | Temperature | 36.9 C (98.4 F) | 07/30/2014 1:20 PM | | | | | PST | | + + + + + | Respiratory Rate | 16 | 07/30/2014 3:40 PM | | | | | PST | | + + + + + | Oxygen Saturation | 98% | 07/30/2014 3:40 PM | | | | | PST | | + + + + + | Inhaled Oxygen | - | - | | | Concentration | | | | + + + + + | Weight | 112.9 kg (249 lb) | 07/30/2014 10:45 AM | | | | | PST | | + + + + + | Height | 185.4 cm (6' 1") | 07/30/2014 10:45 AM | | | | | PST | | + + + + + | Body Mass Index | 32.85 | 07/30/2014 10:45 AM | | | | | PST | | + + + + + documented in this encounter Discharge Instructions Instructions Ashlyn Benitez RN - 07/30/2014Formatting of this note might be different f rom the original. Normal diet. Drink extra liquid if there is blood in urine. Discharge Instructions for Laser Prostatectomy You had a procedure called laser prostatectomy. During this surgical procedure, all or part of your prostate gland was removed to relieve urinary problems due to prostate enlargement. Here are some instructions to help you care for yourself once you have returned home. Activity Limit physical activity for the first week after surgery.This will allow your body emanuel e to rest and heal. Ask your doctor before resuming your normal activity level. Avoid long car rides. Don t drive until your doctor says it s OK. This is usually af ter your catheter is removed and you are no longer taking pain medication. Don t lift anything heavier than10 pounds until your doctor says it s OK. Avoid climbing stairs and strenuous exercise. Also, do not do chores, such as mowing the lawn or vacuuming, until your doctor says it s OK. Other Home Care Finish all of the antibiotics your doctor prescribed to you, even if you feel better. An tibiotics help keep you from getting an infection. Eat high-fiber foods to avoid constipation. Also, use laxatives, stool softeners, or greg mas as directed by your doctor. You should receive an information sheet about caring for your urinary catheter. Ask for a sheet if you did not receive one. Follow the sheet s instructions, some of which should include: Keep the catheter well secured to the leg or abdomen. Use leg bags, external (straight drainage) bags, or both. Empty the bag when it s half full. You may see some blood in the bag. Don t be alarm ed. This is normal after surgery and while the catheter is in place. Use plain soap and water to wash the head of your penis daily, or more often if needed. Wash the catheter daily with plain soap and water to avoid infection. Return to your normal diet. Drink plenty of fluids during the day (enough to keep your urine light colored). This wi ll help keep urine flowing freely. Shower as usual. Wear loose-fitting sweatpants while the catheter is in place. Sweatpants are more comfor table than other pant styles. Follow-Up Make a follow-up appointment as directed by your doctor. When to Seek Medical Attention Call 911 right awayif you have: Shortness of breath. Otherwise, call your doctor immediately if you have: Fever of 100.4F (38C)or higher, or shaking chills Hives or skin rash Nausea, vomiting, or diarrhea Catheter falls out or stops draining Foul-smelling discharge from your catheter or urethra (at tip of penis) [id number] [employer]. [address] [place] [address], [place] [address]. All righ ts reserved. This information is not intended as a substitute for professional medical care. Always follow your healthcare professional's instructions. documented in this encounter Medications at Time of Discharge + + + +---------+--------+ + | Medication | Sig | Dispensed | Refills | Start | End Date | | | | | | Date | | + + + +---------+--------+ + | cetirizine | Take 10 mg by mouth | | 0 | | | | (ZYRTEC) 10 mg | Daily. | | | | | | tablet | | | | | | + + + +---------+--------+ + | Magnesium | Take 1 tablet by | | 0 | | | | Cl-Calcium Carbonate | mouth 2 times daily. | | | | | | (SLOW-MAG PO) | | | | | | + + + +---------+--------+ + | omeprazole | Take 40 mg by mouth | | 0 | | | | (PRILOSEC) 40 MG | every morning | | | | | | capsule | (before breakfast). | | | | | + + + +---------+--------+ + | allopurinol | Take 300 mg by mouth | | 0 | | | | (ZYLOPRIM) 300 mg | Daily. | | | | 8 | | tablet | | | | | | + + + +---------+--------+ + | aspirin 81 mg EC | Take 81 mg by mouth | | 0 | | | | tablet | Daily. | | | | 8 | + + + +---------+--------+ + | B Complex-C (SUPER | Take 1 tablet by | | 0 | | | | B COMPLEX PO) | mouth Daily. | | | | 8 | + + + +---------+--------+ + | carvedilol (COREG) | Take 25 mg by mouth | | 0 | | | | 25 mg tablet | 2 times daily (with | | | | 8 | | | breakfast & dinner). | | | | | + + + +---------+--------+ + | cholecalciferol | Take 2,000 Units by | | 0 | | | | (VITAMIN D-3) 2000 | mouth Daily. | | | | 0 | | UNITS TABS | | | | | | + + + +---------+--------+ + | furosemide (LASIX) | Take 40 mg by mouth | | 0 | | | | 40 mg tablet | 3 times daily. | | | | 8 | + + + +---------+--------+ + | HYDROmorphone | Take 2 mg by mouth | | 0 | | | | (DILAUDID) 2 mg | every 3 hours as | | | | 8 | | tablet | needed for Pain. | | | | | + + + +---------+--------+ + | indomethacin | Take 50 mg by mouth | | 0 | | | | (INDOCIN) 50 MG | 2 times daily (with | | | | 0 | | capsule | breakfast & dinner). | | | | | + + + +---------+--------+ + | isosorbide | Take 30 mg by mouth | | 0 | | | | dinitrate (ISORDIL) | 2 times daily. | | | | 8 | | 30 MG tablet | | | | | | + + + +---------+--------+ + | levothyroxine | Take 75 mcg by mouth | | 0 | | | | (SYNTHROID, | every morning | | | | 8 | | LEVOTHROID) 75 MCG | (before breakfast). | | | | | | tablet | | | | | | + + + +---------+--------+ + | lovastatin | Take 40 mg by mouth | | 0 | | | | (MEVACOR) 40 MG | nightly. | | | | 8 | | tablet | | | | | | + + + +---------+--------+ + | potassium chloride | Take 10 mEq by mouth | | 0 | | | | SA (K-DUR,KLOR-CON) | 3 times daily. | | | | 8 | | 10 MEQ tablet | | | | | | + + + +---------+--------+ + | pramipexole | Take 1.5 mg by mouth | | 0 | | | | (MIRAPEX) 1.5 MG | 3 times daily. As | | | | 8 | | tablet | needed | | | | | + + + +---------+--------+ + documented as of this encounter Progress Notes Ashlyn Benitez RN - 07/30/2014 3:40 PM PSTVoided 200cc of clear light red/orange urine . Slight burning at start. Ashlyn Dave RN - 07/30/2014 3:18 PM PSTUp to bathroom to try voiding.Electron ically signed by Ashlyn Benitez RN at 07/30/2014 3:19 PM PSTdocumented in this encounter Plan of Treatment +--------+---------+ + + + | Date | Type | Specialty | Care Team | Description | +--------+---------+ + + + | 02/25/ | Office | Cardiology | Hans Blanco, | | | 2019 | Visit | | MD Eda Howard | | | | | | [place], | | | | | | [place] [id number] | | | | | | [phone] | | | | | | | | +--------+---------+ + + + documented as of this encounter Procedures + +--------+ + + + | Procedure Name | Priori | Date/Time | Associated Diagnosis | Comments | | | ty | | | | + +--------+ + + + | CYSTOSCOPY PROSTATE | | 07/30/2014 | Retention of | | | VAPORIZATION | | 11:59 AM | urine, unspecified | | | TRANSURETHERAL | | PST | Hypertrophy of | | | | | | prostate with | | | | | | urinary obstruction | | | | | | and other lower | | | | | | urinary tract | | | | | | symptoms (LUTS) | | + +--------+ + + + +---+--------+ | | Case | | | Notes | | | | | | [facility] | | | rm | | | [facility] | | | led as | | | of | | | | | | 2014 @ | | | 1021 | +---+--------+ | | | | | Specia | | | l | | | Needs | | | | | | [facility] | | | rm | +---+--------+ documented in this encounter Visit Diagnoses + + | Diagnosis | + + | Retention of urine, unspecified | + + | 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 | | symptoms (LUTS) | + + documented in this encounter Admitting Diagnoses + + | Diagnosis | + + | Retention of urine, unspecified | + + | 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 | | symptoms (LUTS) | + + documented in this encounter Administered Medications + +--------+ +--------+------+------+ | Medication Order | MAR | Action | Dose | Rate | Site | | | Action | Date | | | | + +--------+ +--------+------+------+ | ciprofloxacin (CIPRO) tablet | Given | 07/30/19 | 500 mg | | | | 500 mg 500 mg, Oral, 60 MIN | | 15 11:08 | | | | | PRE-OP, Starting 07/30/14 at | | AM PST | | | | | 1044, For 1 dose, Adjust | | | | | | | administration schedule to match | | | | | | | OR schedule., Pre-op | | | | | | + +--------+ +--------+------+------+ +---+---+ | | | +---+---+ + +---------+ +---+---+---+ | lactated ringers (LR) infusion | New Bag | 07/30/19 | | | | | at 100 mL/hr, Intravenous, | | 15 12:45 | | | | | CONTINUOUS, Starting Sat07/30/14 | | PM PST | | | | | at 1100, Pre-op | | | | | | + +---------+ +---+---+---+ +---------+ +---+-------+---+ | New Bag | 07/30/19 | | | | | | 15 12:17 | | | | | | PM PST | | | | +---------+ +---+-------+---+ | New Bag | 07/30/19 | | 100 | | | | 15 11:00 | | mL/hr | | | | AM PST | | | | +---------+ +---+-------+---+ +---+---+ | | | +---+---+ + +-------+ +--------+---+---+ | phenazopyridine (PYRIDIUM) | Given | 07/30/19 | 200 mg | | | | tablet 200 mg 200 mg, Oral, 3 | | 15 2:30 | | | | | TIMES DAILY PRN, urinary | | PM PST | | | | | burning., Starting Sat07/30/14 at | | | | | | | 1401, Administer with meals., | | | | | | | Post-op/Phase II | | | | | | + +-------+ +--------+---+---+ +---+---+ | | | +---+---+ + +---------+ +--------+---+ + | scopolamine (TRANSDERM-SCOP) | Patch | 07/30/19 | 1.5 mg | | Ear-Behi | | patch 1.5 mg 1.5 mg (1 patch), | Applied | 15 11:09 | | | nd Left | | Transdermal, ONCE, 07/30/14 at | | AM PST | | | | | 1100, For 1 dose, PRN for adult | | | | | | | patients with history of PONV. | | | | | | | Hold for patients with glaucoma, | | | | | | | dementia, altered mental status, | | | | | | | or history of allergy to | | | | | | | Scopolamine. Apply to mastoid | | | | | | | process behind ear., Pre-op | | | | | | + +---------+ +--------+---+ + +---+---+ | | | +---+---+ documented in this encounter
--- OUTSIDE RECORDS SUMMARY | ~2019-10-02 | XMS | Encounter Summary ---
Demographics + + + | Address | [address] | | | [place] [address] | + + + | Home Phone | | + + + | Preferred Language | Unknown | + + + | Marital Status | | + + + | Mandaen Affiliation | [id number] | + + + | Race | Unknown | + + + | Ethnic Group | Unknown | + + + Author + + + | Author | [facility] | | | and [place] | + + + | Organization | [facility] | | | and [...] Team Providers + +------+ + | Care Tram Driver Name | Role | Phone | + +------+ + | Osbaldo Wood MD | PCP | | + +------+ + Reason for Visit +---------+ + | Reason | Comments | +---------+ + | Syncope | | +---------+ + Auth/Cert +--------+--------+ + + + + | Status | Reason | Specialty | Diagnoses / | Referred By | Referred To | | | | | Procedures | Contact | Contact | +--------+--------+ + + + + | | | | Diagnoses | | | | | | | Syncope, | | | | | | | unspecified | | | | | | | syncope type | | | | | | | Acute | | | | | | | renal | | | | | | | failure | | | | | | | superimposed | | | | | | | on chronic | | | | | | | kidney | | | | | | | disease, | | | | | | | unspecified | | | | | | | CKD stage, | | | | | | | unspecified | | | | | | | acute renal | | | | | | | failure type | | | | | | | (HCC) | | | +--------+--------+ + + + + Encounter Details +--------+ + + + + | Date | Type | Department | Care Team | Description | +--------+ + + + + | 03/08/ | Hospital | [facility] | Deandre Rocha | Syncope, unspecified | | 2018 - | Encounter | [facility] ICU [address] | DO Demarcus [address] | syncope type | | | | [place], | [address] [place] | (Primary Dx); Acute | | 03/11/ | | [place] [address] | [place] [address] | renal failure | | 2018 | | [phone] | [phone] | superimposed on | | | | | | chronic kidney | | | | | Boni Sanchez MD | disease, unspecified | | | | | [address] | CKD stage, | | | | | [place], [place] | unspecified acute | | | | | [id number] | renal failure type | | | | | | (HCC); Symptomatic | | | | | | bradycardia; | | | | | | Essential | | | | | | hypertension | +--------+ + + + + Social [...] + + + | Blood Pressure | 169/87 | 03/11/2018 7:30 AM | | | | | PDT | | + + + + + | Pulse | 58 | 03/11/2018 7:30 AM | | | | | PDT | | + + + + + | Temperature | 35.8 C (96.4 F) | 03/11/2018 7:30 AM | | | | | PDT | | + + + + + | Respiratory Rate | 16 | 03/11/2018 7:30 AM | | | | | PDT | | + + + + + | Oxygen Saturation | 96% | 03/11/2018 7:30 AM | | | | | PDT | | + + + + + | Inhaled Oxygen | - | - | | | Concentration | | | | + + + + + | Weight | 90 kg (198 lb 6.6 | 03/11/2018 4:12 AM | | | | oz) | PDT | | + + + + + | Height | 185.4 cm (6' 1") | 03/08/2018 7:38 PM | | | | | PDT | | + + + + + | Body Mass Index | 26.18 | 03/08/2018 7:38 PM | | | | | PDT [...] + + documented as of this encounter Discharge Summaries Tyler Mabry MD - 03/11/2018 9:46 AM PDTFormatting of this note might be different fro m the original. [place], [place] HOSPITALIST DISCHARGE SUMMARY Pt. Name/Age/: Wilmer Pinon 82 y.o. 1935 Date of Admission: 03/08/2018 Date of Discharge: 03/11/2018 Admitting Physician: Boni Sanchez MD Primary Care Provider: Osbaldo Wood MD Discharging Physician: Tyler Mabry MD DISCHARGE DIAGNOSES: Active Hospital Problems Diagnosis Syncope Symptomatic bradycardia 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 HTN (hypertension) Resolved Hospital Problems Diagnosis No resolved problems to display. DISCHARGE MEDICATIONS: Discharge Medications New Medications Details lisinopril 20 mg tablet Take 1 tablet by mouth 2 times daily. aka: PRINIVIL, ZESTRIL Unchanged Medications Details allopurinol 300 mg tablet Take 300 mg by mouth Daily. aka: ZYLOPRIM aspirin 325 mg EC tablet Take 325 mg by mouth Daily. B COMPLEX 1 PO Take 1 tablet by mouth Daily. furosemide 40 mg tablet Take 40 mg by mouth as needed for Edema. aka: LASIX isosorbide mononitrate 30 mg ER tablet Take 30 mg by mouth Daily. Take one in the morning and somtime takes one in the Evening if chest pain aka: IMDUR KLS ALLER-BENITO PO Take by mouth Daily. levothyroxine 88 mcg tablet Take 88 mcg by mouth every morning (before breakfast). aka: SYNTHROID MYRBETRIQ 25 mg ER tablet Generic drug: mirabegron Take 25 mg by mouth Daily. nitroglycerin 0.[address] 0.4 mg under the tongue every 5 minutes as needed for Chest pain. aka: NITROSTAT PEPCID PO Take by mouth. Take one daily Discontinued Medications carvedilol 25 mg tablet aka: COREG potassium chloride 10 MEQ ER tablet aka: KLOR-CON Alternative Med Lists (all with hard stops if not reconciled) 1 Dot DCMEDSSUMMARY (for discharge summary) 2 Dot DCMEDSDCRA (signed & held med orders with a discharge readmit phase of care) 3 Dot DCMEDSSNF (intended for SNF transfers) 4 Dot DCMEDSWITHREADMIT (preferred for all discharge summaries as it includes 1 & 2 above u sing 1 for most discharges but 2 when there is and order for discharge readmit) HOSPITAL COURSE: Please refer to the H&P for full details and the most recent rounding rounding (progress) n ote. Active Hospital Problems Diagnosis Syncope due to below Symptomatic bradycardia at admit His Coreg has been held since admit and will NOT resume, he does not presently meet criteri a for pacemaker and I spoke with Dr Escobar and OK for home and followup with Dr Escobar in 2-4 we eks 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 HTN (hypertension) Resolved Hospital Problems Diagnosis No resolved problems to display. At [facility] only gets the Myrb and thyroid Gets others from Mail Order and clarified at home ie Pepcid instead of Protonix and no Requip (dot meyaddendum tdnorefesh nownorefresh) (dot meyvent) (dot malnutattest is attestation for malnutrition) Plan Home New Rx Lisinopril Stopped Coreg [facility] for the Lisinopril Dr Escobar Mar 26 recalls he was on Lipitor in the past but stopped for side effect hence stopped here t oo and she should check with PCP vs Dr Escobar to see if can start other statin in future with his Hx of CAD Most recent weight: Input and output for last 24hrs: Wt Readings from Last 1 Encounters: 03/11/18 90 kg (198 lb 6.6 oz) I/O last 24 Hours: In: 1080 [P.O.:1080] Out: 550 [Urine:550] Vitals Ranges: Temp: [35.7 C (96.3 F)-36.1 C (97 F)] 35.8 C (96.4 F) Pulse: [55-60] 58 Resp: [14-16] 16 BP: (158-173)/(67-87) 169/87 Vitals: Temp: 35.8 C (96.4 F) BP: 169/87 Pulse: 58 Resp: 16 SpO2: 96 % SpO2 96 % on room air at flow rate 0L/min PHYSICAL EXAM: Patient seen and examined by me on discharge day PROCEDURES AND CONSULTS: Procedures Consults Echo Dr Escobar PENDING RESULTS: DISPOSITION AND DISCHARGE INSTRUCTIONS: Follow-up Information Call Osbaldo Wood MD. Specialty: Internal Medicine Why: Make appt to be seen goal to be seen this week Contact information: [address] [place] [id number] Hans Blanco MD. Specialty: Cardiology Why: Mar 26 check in at 11 am Contact information: [address] [facility] [id number] Condition: Patient being discharged with condition improved Greater than 30 minutes were spent on discharge and coordination of post-hospital care. (trudy kelley) Electronically signed by: Tyler Mabry MD, 03/11/2018 9:46 [facility] Reference. This is NOT part of the patient's formal assessment section. In the assessment or plan section of notes the author may date some of the subsections with a number such as "" or "23" to indicate the date of that entry or event. In the example below the 1st line is the original entry and the subsequent lines indicate flowing updates to the subsection: Example assessment subsection (such as CHF or CP or Pneumonia) Patient is improved today with resolution of symptoms 24th Worse with recurrence of symptoms requiring further testing Portions of this chart may have been created with InfraSearch voice recognition software. Occasi onal wrong-word or sound-alike substitutions may have occurred due to the inherent clements itations of voice recognition software. Please read the chart carefully and recognize, using context, where these substitutions have occurred documented in this en counter Discharge Instructions Instructions Tyler Mabry MD - 03/11/2018Healthy eating Coreg (carvediolo) and potassium stopped Lisinopril is new See your PCP and Dr Goddard in followup documented in this encounter Medications at Time [...] +---------+ + + | allopurinol | Take 300 mg by mouth | | 0 | | | | (ZYLOPRIM) 300 mg | Daily. | | | | 8 | | tablet | | | | | | + + + +---------+ + + | aspirin 81 mg EC | Take 81 mg by mouth | | 0 | | | | tablet | Daily. | | | | 8 | + + + +---------+ + + | B Complex-C (SUPER | Take 1 tablet by | | 0 | | | | B COMPLEX PO) | mouth Daily. | | | | 8 | + + + +---------+ + + | carvedilol (COREG) | Take 25 mg by mouth | | 0 | | | | 25 mg tablet | 2 times daily (with | | | | 8 | | | breakfast & dinner). | | | | | + + + +---------+ + + | Cetirizine HCl | Take by mouth | | 0 | | | | (KLS ALLER-BENITO PO) | Daily. | | | | 8 | + + + +---------+ + + | cholecalciferol | Take 2,000 Units by | | 0 | | | | (VITAMIN D-3) 2000 | mouth Daily. | | | | 0 | | UNITS TABS | | | | | | + + + +---------+ + + | Famotidine (PEPCID | Take by mouth. Take | | 0 | | | | PO) | one daily | | | | 8 | + + + +---------+ + + | furosemide (LASIX) | Take 40 mg by mouth | | 0 | | | | 40 mg tablet | as needed for Edema. | | | | 8 | + + + +---------+ + + | furosemide (LASIX) | Take 40 mg by mouth | | 0 | | | | 40 mg tablet | 3 times daily. | | | | 8 | + + + +---------+ + + | HYDROmorphone | Take 2 mg by mouth | | 0 | | | | (DILAUDID) 2 mg | every 3 hours as | | | | 8 | | tablet | needed for Pain. | | | | | + + + +---------+ + + | indomethacin | Take 50 mg [...] +---------+ + + | levothyroxine | Take 75 mcg by mouth | | 0 | | | | (SYNTHROID, | every morning | | | | 8 | | LEVOTHROID) 75 MCG | (before breakfast). | | | | | | tablet | | | | | | + + + +---------+ + + | lovastatin | Take 40 mg by mouth | | 0 | | | | (MEVACOR) 40 MG | nightly. | | | | 8 | | tablet | | | | | | + + + +---------+ + + | mirabegron | Take 25 mg by mouth | | 0 | | | | (MYRBETRIQ) 25 mg ER | Daily. | | | | 0 | | tablet | | | | | | + + + +---------+ + + | potassium chloride | Take 10 mEq by mouth | | 0 | | | | SA (K-DUR,KLOR-CON) | 3 times daily. | | | | 8 | | 10 MEQ tablet | | | | | | + + + +---------+ + + | pramipexole | Take 1.5 mg by mouth | | 0 | | | | (MIRAPEX) 1.5 MG | 3 times daily. As | | | | 8 | | tablet | needed | | | | | + + + +---------+ + + documented as of this encounter Progress Notes Tyler Mabry MD - 03/11/2018 9:17 AM PDTFormatting of this note might be different fro m the original. [place], [place] HOSPITALIST PROGRESS NOTE Patient: Wilmer Pinon : 1935: Age: 82 y.o. MedRec: [id number] PCP: Osbaldo Wood MD Admission date: 03/08/2018 Hospital day # : 3 Physician author: Tyler Mabry MD Today: 03/11/2018 Allergies: Allergies Allergen Reactions Tramadol Caused spasms and pt to be in hospital Current Medications: Current Facility-Administered Medications Medication Dose Route Frequency Provider Last Rate Last Dose acetaminophen (TYLENOL) tablet 650 mg 650 mg Oral Q4H PRN Boni Sanchez MD 650 mg at 03/09/18 203 allopurinol (ZYLOPRIM) tablet 300 mg 300 mg Oral Daily Boni Sanchez MD 300 mg at 03/11/18 0807 aspirin EC tablet 325 mg 325 mg Oral Daily Boni Sanchez MD 325 mg at 03/11/18 08 07 atorvaSTATin (LIPITOR) tablet 40 mg 40 mg Oral Nightly Boni Sanchez MD 40 mg at 03/10/18 203 atropine 0.4 mg/mL injection 0.4 mg 0.4 mg Intravenous Q5 Min PRN Boni Sanchez MD 0.4 mg at 03/08/18 1747 docusate sodium (COLACE) capsule 100 mg 100 mg Oral BID PRN Boni Sanchez MD heparin 5,000 units/mL injection 5,000 Units 5,000 Units Subcutaneous 2 times per day Boni Sanchez MD 5,000 Units at 03/11/18 0807 levothyroxine (SYNTHROID) tablet 88 mcg 88 mcg Oral QAM AC Boni Sanchez MD 88 mc g at 03/11/18 0639 lisinopril (PRINIVIL, ZESTRIL) tablet 20 mg 20 mg Oral BID Hans Blanco MD 20 m g at 03/11/18 0807 melatonin tablet 3 mg 3 mg Oral Nightly PRN Corky Freedman MD 3 mg at 03/09/18 203 ondansetron (ZOFRAN) injection 4 mg 4 mg Intravenous Q6H PRN Boni Sanchez MD pantoprazole (PROTONIX) DR tablet 40 mg 40 mg Oral QAM AC Boni Sanchez MD 40 mg at 03/11/18 0639 trolamine salicylate (ASPERCREME) 10% cream Topical 4x Daily PRN Corky Freedman MD Current Infusions: Objective Data Hematology and anemia Recent Labs Lab 03/10/18 0353 03/09/18 0430 03/08/18 1405 WBC 7.8 8.8 7.4 HGB 14.1 11.5* 13.0* HCT 40.3 34.5* 38.1* PLT 244 199 240 NEUPCT -- 60.1 58.6 MONPCT -- 10.3 10.4 No results for input(s): PROTIME, INR, PTT in the last 168 hours. Recent Labs Lab 03/08/18 1405 TSH 0.80 Inflammatory markers No results for input(s): LACTATE, PROCALCITONI, CRP, ESR in the last 168 hours. Chemistry Recent Labs Lab 03/11/18 0503/10/18 0353 03/09/18 0430 03/08/18 1405 GLU 97 98 95 138* NA 139 137 136 138 K 3.4* 3.6 3.4* 3.9 CL 105 105 108 105 CO2 26 23* 25 26 ANIONGAP 8 9 3 7 BUN 18 14 15 20* CREA 1.29 1.27 1.29 1.56* GFRNONAA 53* 54* 53* 43* CALCIUM 9.5 9.5 8.7 9.1 ALBUMIN -- -- -- 3.3 TOTALPROTEIN -- -- -- 5.7* BILITOT -- -- -- 0.9 ALKPHOS -- -- -- 50 ALT -- -- -- 12 AST -- -- -- 20 Recent Labs Lab 03/11/18 0503/09/18 1421 03/09/18 0430 MG 1.7* 2.3 1.2* No results for input(s): AMYLASE, LIPASE in the last 168 hours. No results for input(s): TRIG, CHOL, HDL, LDL in the last 168 hours. No results for input(s): AMMONIA in the last 168 hours. Cardiology & Digoxin Recent Labs Lab 03/09/18 0120 03/08/18200403/08/18 1405 TROPONIN 0.01 0.01 0.01 BNP -- -- 166* ABG No results for input(s): PHART, PO2ART, ARV9AFQ, NMZ4XNF, BEART, B2FRHICS in the last 168 h ours. No results for input(s): SPECSOURCE, PHPOCB, PCO2, PO2, HCO3, TCO2, BEART, LPFG1YIH in the last 168 hours. Drug of overdose and abuse No results for input(s): ALCOHOL, ACTMN, SALICYLATE in the last 168 hours. No results for input(s): AMPHEQUAL, BARBITURATE, BENZSCR, CANNIBSCR, AMPHETAMINE, METHADSCR , OPIATESCR in the last 168 hours. Urinalysis Recent Labs Lab 03/10/18 0844 03/08/18 2231 GLUCOSEU -- Negative WBCUA 0-2 0-2 RBCUA 0-2 0-2 SQUAMEPIUA 0-2 10-15* BACTERIAUA Negative Negative Point of care glucose Recent Labs Lab 03/08/18 1359 POCGLU 140* Micro results more choices using dot micro, for reference below is dot [id number] URSR Microbiology Results (72 hrs) Procedure Component Value Units Date/Time Culture, MRSA [[id number]] (Normal) Collected: 03/08/18 1833 Order Status: Completed Lab Status: Final result Updated: 03/09/18 1158 Specimen: Tissue from Nares Culture Negative for MRSA by chromogenic agar method Radiology results (more choices using dot risresults) No results found. Serial weights: Filed Weights: 03/08/18 1402 03/08/18 1938 03/08/18 1946 03/10/18 0340 Weight: 92.4 kg (203 lb 11.3 oz) 75.2 kg (165 lb 12.6 oz) 75.2 kg (165 lb 12.6 oz) 87.5 kg (192 lb 12.7 oz) 03/11/18 0412 Weight: 90 kg (198 lb 6.6 oz) Most recent weight: Input and output 2 shifts and 3 shifts: Wt Readings from Last 1 Encounters: 03/11/18 90 kg (198 lb 6.6 oz) I/O last 24 Hours: In: 1080 [P.O.:1080] Out: 550 [Urine:550] I/O last 3 completed shifts: In: 1080 [P.O.:1080] Out: 1600 [Urine:1600] Vitals Ranges: Temp: [35.7 C (96.3 F)-36.1 C (97 F)] 35.8 C (96.4 F) Pulse: [55-60] 58 Resp: [14-16] 16 BP: (158-173)/(67-87) 169/87 Vitals: Temp: 35.8 C (96.4 F) BP: 169/87 Pulse: 58 Resp: 16 SpO2: 96 % SpO2 96 % on room air at flow rate 0L/min (dot yvbatsheva) Subjective CC admitted with symptomatic bradycardia and syncope He feels fine and Dr Escobar saw him already and presently NOT need pacemaker and OK for going home No CP N/V nor SOB Not dizzy Not a (was too young for WW2) ROS See above Exam General Alert NAD Cardiac RRR mild abel and occ brief pause on tele Extremities Lung clear not labored Abdominal Neuro alert fluent (dot meyexam) Assessment and Hospital Course (dot meyprob vs meyprobap) Active Hospital Problems Diagnosis Syncope due to below Symptomatic bradycardia at admit His Coreg has been held since admit and will NOT resume, he does not presently meet criteri a for pacemaker and I spoke with Dr Escobar and OK for home and followup with Dr Escobar in 2-4 we eks 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 HTN (hypertension) Resolved Hospital Problems Diagnosis No resolved problems to display. At [facility] only gets the Myrb and thyroid Gets others from Mail Order and clarified at home ie Pepcid instead of Protonix and no Requip (dot meyaddendum tdnorefesh nownorefresh) (dot meyvent) (dot malnutattest is attestation for malnutrition) Plan Home New Rx Lisinopril Stopped Coreg [facility] for the Lisinopril Dr Escobar Mar 26 (dot meyaddendum tdnorefesh nownorefresh) (dot meytime meycritical meysign) Tyler Mabry MD 03/11/2018 9:17 [facility] Reference. This is NOT part of the patient's formal assessment section. In the assessment or plan section of notes the author may date some of the subsections with a number such as "" or "23" to indicate the date of that entry or event. In the example below the 1st line is the original entry and the subsequent lines indicate flowing updates to the subsection: Example assessment subsection (such as CHF or CP or Pneumonia) Patient is improved today with resolution of symptoms Worse with recurrence of symptoms requiring further testing Portions of this chart may have been created with InfraSearch voice recognition software. Occasi onal wrong-word or sound-alike substitutions may have occurred due to the inherent clements itations of voice recognition software. Please read the chart carefully and recognize, using context, where these substitutions have occurred Hans Leach MD - 03/11/2018 6:35 AM PDT PATIENT NAME: Wilmer Pinon : 1935: AGE: 82 y.o. ADMISSION DATE: 03/08/2018 HOSPITAL DAY NUMBER: 3 PRIMARY CARE: Osbaldo Wood MD CONSULTING PROVIDER: Hans Blanco MD CARDIOLOGY PROGRESS NOTE DATE OF SERVICE: 03/11/18 SUBJECTIVE: Patient continued to have bradycardia with heart rate dips into mid 30s at time. Carvedilo l was discontinued more than 48 hours ago. Bradycardia tender happening more at night. How ever, this morning, he continued to denies any symptoms of dizziness, lightheadedness and pa ssing out. He did not sleep well last night. He has no other specific cardiac complaints. There is no chest pain or chest discomfort both at rest and on exertion. Patient denies br eathlessness. There is no palpitation. There is no ankle or leg swelling. Patient can sle ep on one pillow at night without difficulty breathing. CURRENT SCHEDULED MEDS: allopurinol 300 mg Oral Daily aspirin 325 mg Oral Daily atorvaSTATin 40 mg Oral Nightly heparin 5,000 Units Subcutaneous 2 times per day levothyroxine 88 mcg Oral QAM AC lisinopril 20 mg Oral BID pantoprazole 40 mg Oral QAM AC IV INFUSIONS: OBJECTIVE: PHYSICAL EXAM Latest VS: BP 158/78 | Pulse 55 | Temp 35.9 C (96.6 F) (Oral) | Resp 15 | Ht 1.854 m (6' 1") | Wt 90 kg (198 lb 6.6 oz) | SpO2 96% | BMI 26.18 kg/m Admit Weight: Weight: 92.4 kg (203 lb 11.3 oz) Current weight: Weight: 90 kg (198 lb 6.6 oz) Vital sign ranges for last 24hrs: Input and output for last 24hrs: Temp: [35.7 C (96.3 F)-36.1 C (97 F)] 35.9 C (96.6 F) Pulse: [55-60] 55 Resp: [14-16] 15 BP: (158-174)/(67-78) 158/78 SpO2 Av.8 % Min: 96 % Max: 97 % 03/09 0701 - 03/10 1900 In: 1458 [P.O.:1100; I.V.:258] Out: 2925 [Urine:2925] Constitutional General appearance: Elderly male individual, well developed, well nourished, well groo med, no acute distress Cardiovascular Palp/Percussion: PMI in 5th ICS at MCL; no lifts, thrills, palp S3 or S4. Auscultation: normal S1 S2; no gallop or rub or click Murmur: none Carotid arteries: pulses 2+, symmetric, no bruits Abdominal aorta: no enlargement or bruits Pedal pulses: pulses 2+, symmetric Peripheral circulation: no cyanosis, clubbing, edema, or varicosities Gastrointestinal Abdomen: soft, non-tender Liver and spleen: no enlargement Mental Status/Neurological Orientation: oriented to time, place, and person Affect/Mood: no depression, anxiety, or agitation Respiratory Respiratory effort: no intercostal retractions or use of accessory muscles Auscultation: no rales, rhonchi, or wheezes LABS Recent Results (from the past 24 hour(s)) Urinalysis, Microscopic Only, with Culture if Indicated Collection Time: 03/10/18 8:44 Result Value Ref Range WBC UA 0-2 0 - 2 /HPF RBC UA 0-2 0 - 2 /HPF SQUAMOUS EPITHELIAL UA 0-2 0 - 2 /LPF BACTERIA UA Negative Negative /HPF MUCUS UA Present (A) Negative /LPF BUDDING YEAST UA Few (A) Negative HYALINE CASTS UA 2-5 (A) 0 - 2 /LPF Protein/Creatinine Ratio, Urine Collection Time: 03/10/18 8:44 Result Value Ref Range Protein, Urine 412 (H) <6 mg/dL Creatinine, Urine, Random 69 mg/dL PRO/CREA RATIO,URINE 5.97 (H) <0.20 mg/mg Basic Metabolic Panel Collection Time: 03/11/18 5:17 Result Value Ref Range NA 139 136 - 149 mmol/L K 3.4 (L) 3.5 - 5.1 mmol/L CL 105 98 - 109 mmol/L CO2 26 24 - 31 mmol/L ANION GAP 8 3 - 16 mmol/L GLUCOSE 97 70 - 109 mg/dL BUN 18 7 - 18 mg/dL Creatinine, Serum/Plasma 1.29 0.60 - 1.30 mg/dL eGFR if not 53 (L) >=60 mL/min/1.73m2 CALCIUM 9.5 8.3 - 10.5 mg/dL BUN/CREA 14.0 Magnesium Collection Time: 03/11/18 5:17 Result Value Ref Range Magnesium 1.7 (L) 1.8 - 2.5 mg/dL ECG: Sinus rhythm on telemetry, heart rate 63 beats minute. ASSESSMENT: 1. Bradycardia, irreversible, asymptomatic A. Echocardiogram 03/09/2018 shows mild left atrial dilatation, normal left vent ricular size, wall thickness and motion, preserved left ventricular systolic function, LVEF is 60-65%, grade 2 left ventricular diastolic dysfunction, mildly thickened and calcified mi tral valve with a mild central mitral valve regurgitation, mildly thickening calcified trile aflet aortic valve with adequate opening, there is aortic valve sclerosis without significan t aortic valve stenosis, mild aortic root dilatation measuring 3.9 cm in diameter, normal ri ght-sided pressure, not well-visualized IVC B. He was in his usual state of health until 03/08/2018 he was at a memorial for a friend and while sitting down he passed out. He was then admitted to hospital with profou nd bradycardia and his carvedilol was put on hold. In the past 36 hours, patient continues to have bradycardia with evidence of nonconducted P waves, nocturnal heart rate in the mid 4 0's. C. Patient continued to have bradycardia with heart rate dips into mid 30s at time. Carve dilol was discontinued more than 48 hours ago. Bradycardia tender happening more at night. However, this morning, he continued to denies any symptoms of dizziness, lightheadedness an d passing out. He did not sleep well last night. He has no other specific cardiac complain ts. There is no signs and symptoms of overt congestive heart failure. He is in a c lass [place] [employer] [place] [employer] functional class. There is chronic venous stasis on ph ysical examination. Despite persistent bradycardia of carvedilol, patient has no symptoms. Theref ore, pacemaker implantation is not indicated. 2. Coronary artery disease A. CAGB 1990. B. He denies any chest pain. 3. Hypertension A. Blood pressure today is slightly elevated off carvedilol, on lisinopril 10 m g twice a day. 4. Stage III chronic kidney disease A. eGFR is 54 from 03/10/2018 5. Inactivity 6. Hyperlipidemia A. on Lipitor 40 mg a day. PLAN: 1. No indication for permanent pacemaker implantation at this time. 2. Increase lisinopril to 20 minute on twice a day to treat residual hypertension. 3. Follow-up in my office in 2-4 weeks. Portions of this report were transcribed using voice recognition software. Every effort wa s made to ensure accuracy; however, inadvertent computerized vice president industrial relations errors may be pre sent. Electronically signed by: Hans Blanco MD 03/11/2018 6:36 Alli Ramirez MD - 03/10/2018 8:06 AM PDTForm atting of this note might be different from the original. [facility] Hospitalist Progress Note Wilmer Pinon is a 82 y.o. male ASSESSMENT and PLAN: Active Hospital Problems Syncope Patient with long-standing use of carvedilol. In 1990 he underwent coronary bypass graftin and his family reports this was associated with tachycardia. He subsequently has been on carvedilol since that time. His last dose of carvedilol was on Saturday at 11 AM. For ease of dosing he's she been taking 2 25 mg pills once in the morning rather than twice a day do sing. Syncopal spell occurred Saturday at about 1 PM i.e. 2 hours after this dose. Overnig ht the patient had a 6 episodes of single nonconducted P waves. Heart rate has improved reyna ewhat now in the mid 50s at rest improving up to 70 with exertion. Continue to hold carvedi lol. Have asked Dr. Escobar to assess rhythm to determine whether or not we need to consider p acemaker at this point or continue to follow with outpatient Holter monitoring to see whethe r or not this rhythm resolves off carvedilol. We'll check a TSH. 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 Echocardiogram was retained left ventricular function. Currently patient's rate is such sh e is not need beta ria HTN (hypertension) The patient had significant proteinuria on initial urinalysis and we'll repeat this value. Otherwise I'm going to initiate lisinopril 10 mg twice daily. History of metformin use is unaware of any diagnosis of diabetes. We'll check hemoglobin A1c SUBJECTIVE: Patient denies recent chest pain, nausea, shortness of breath. He does report syncope occu rring Saturday at approximately 1 PM, 2 hours after carvedilol 50 mg dose, and had previous spells. VITALS: Temp: 36 C (96.8 F), Pulse: 55, Resp: 14, BP: 174/76, SpO2 97 % on room air at flow rat e 0L/min Temp Min: 35.5 C (95.9 F) Max: 36 C (96.8 F) Weight: 92.4 kg (203 lb 11.3 oz) Intake/Output Summary (Last 24 hours) at 03/10/18 0807 Last data filed at 03/10/18 0744 Gross per 24 hour Intake 678 ml Output 2925 ml Net -2247 ml PHYSICAL EXAM: Cardiovascular: Regular rate and rhythm Respiratory: Clear bilaterally Abdomen: Soft without tenderness Extremities: Without edema DIAGNOSTIC STUDIES: Available data and images were reviewed personally. Significant results and findings are a ddressed here or in the Assessment and Plan. Lab Results Component Value Date HGB 14.1 03/10/2018 HCT 40.3 03/10/2018 PLT 244 03/10/2018 WBC 7.8 03/10/2018 Lab Results Component Value Date NA 137 03/10/2018 K 3.6 03/10/2018 CL 105 03/10/2018 CO2 23 (L) 03/10/2018 CREA 1.27 03/10/2018 BUN 14 03/10/2018 MG 2.3 03/09/2018 BNP 166 (H) 03/08/2018 Glucose, POC Date/Time Value Ref Range Status 03/08/2018 13:59 140 (H) 70 - 109 mg/dL Final Glucose, POC Date/Time Value Ref Range Status 03/08/2018 13:59 140 (H) 70 - 109 mg/dL Final Xr Chest Ap Portable Result Date: 03/08/2018 XR CHEST AP PORTABLE 03/08/2018 2:21 PM HISTORY: SYNCOPE. COMPARISON: None. Findings: Sterno zion wires and mediastinal clips are present. The heart is borderline enlarged. There is ath erosclerosis of the aorta. Central pulmonary vasculature is normal. Mild atelectasis are in the lung bases. There is moderate spondylosis. IMPRESSION - No acute findings. Borderline ca rdiomegaly. Dictated and Signed by: Justus Valdivia MD Electronically signed: 03/08/2018 3:11 P M Total time of approximately 25 minutes was spent with the patient and/or patient's family, and/or on the patient's floor/unit, of which more than 50% was spent counseling and/or coord ination the patient's care as outlined above. Alli Olson 03/10/2018 8:07 [facility] Portions of this chart may have been created with [employer] voice recognition software. Occasi onal wrong-word or sound-alike substitutions may have occurred due to the inherent clements itations of voice recognition software. Please read the chart carefully and recognize, using context, where these substitutions have occurred arker, Alli Almanza MD - 0 03/09/2018 9:47 AM PDT [facility] Hospitalist Progress Note Wilmer Pinon is a 82 y.o. male ASSESSMENT and PLAN: Active Hospital Problems Syncope Patient with multiple drop beats with last dose of carvedilol yesterday at about 11 AM. Th e patient reports his takes care of his medications and we do not have a list currently thus have asked nursing to have his contacted bring in his meds. Otherwise I'm going to saline lock his IV. Symptomatic bradycardia Improving off of carvedilol. 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 Echocardiogram pending. The patient denies a known history of A. fib as secondary need for carvedilol thus I'll closely for development of angina and after determining his dosing may consider reintroduction of the lower dose HTN (hypertension) Followed blood pressure for now. He had significant proteinuria and we'll repeat a urine a nd try to quantitate this. This would suggest the potential need for JERMAINE inhibitor therapy SUBJECTIVE: Patient denies recent chest pain, nausea, shortness of breath. He does report syncope occu rring yesterday a.m. and had previous spells. VITALS: Temp: 36 C (96.8 F), Pulse: 54, Resp: 15, BP: 159/76, SpO2 97 % on room air at flow rat e 0L/min Temp Min: 35.7 C (96.3 F) Max: 36.3 C (97.3 F) Weight: 92.4 kg (203 lb 11.3 oz) Intake/Output Summary (Last 24 hours) at 03/09/18 0947 Last data filed at 03/09/18 0933 Gross per 24 hour Intake 1893 ml Output 600 ml Net 1293 ml PHYSICAL EXAM: Cardiovascular: Regular rate and rhythm Respiratory: Clear bilaterally Abdomen: Soft without tenderness Extremities: Without edema DIAGNOSTIC STUDIES: Available data and images were reviewed personally. Significant results and findings are a ddressed here or in the Assessment and Plan. Lab Results Component Value Date HGB 11.5 (L) 03/09/2018 HCT 34.5 (L) 03/09/2018 PLT 199 03/09/2018 WBC 8.8 03/09/2018 Lab Results Component Value Date NA 136 03/09/2018 K 3.4 (L) 03/09/2018 CL 108 03/09/2018 CO2 25 03/09/2018 CREA 1.29 03/09/2018 BUN 15 03/09/2018 MG 1.2 (L) 03/09/2018 BNP 166 (H) 03/08/2018 Glucose, POC Date/Time Value Ref Range Status 03/08/2018 13:59 140 (H) 70 - 109 mg/dL Final Glucose, POC Date/Time Value Ref Range Status 03/08/2018 13:59 140 (H) 70 - 109 mg/dL Final Xr Chest Ap Portable Result Date: 03/08/2018 XR CHEST AP PORTABLE 03/08/2018 2:21 PM HISTORY: SYNCOPE. COMPARISON: None. Findings: Sterno zion wires and mediastinal clips are present. The heart is borderline enlarged. There is ath erosclerosis of the aorta. Central pulmonary vasculature is normal. Mild atelectasis are in the lung bases. There is moderate spondylosis. IMPRESSION - No acute findings. Borderline ca rdiomegaly. Dictated and Signed by: Justus Valdivia MD Electronically signed: 03/08/2018 3:11 P M Total time of approximately 25 minutes was spent with the patient and/or patient's family, and/or on the patient's floor/unit, of which more than 50% was spent counseling and/or coord ination the patient's care as outlined above. Alli Olson 03/09/2018 9:47 [facility] Portions of this chart may have been created with [employer] voice recognition software. Occasi onal wrong-word or sound-alike substitutions may have occurred due to the inherent clements itations of voice recognition software. Please read the chart carefully and recognize, using context, where these substitutions have occurred documented in this enc ounter Plan of Treatment +--------+---------+ + + + | Date | Type | Specialty | Care Team | Description | +--------+---------+ + + + | 02/25/ | Office | Cardiology | Hans Blanco, | | | 2019 | Visit | | MD Eda Howard | | | | | | [place], | | | | | | [place] [address] | | | | | | [phone] | | | | | | | | +--------+---------+ + + + documented as of this encounter Procedures + +--------+ + + + | Procedure Name | Priori | Date/Time | Associated Diagnosis | Comments | | | ty | | | | + +--------+ + + + | EXTRA RANGEL TOP | Routin | 03/11/2018 | | Results for this | | TUBE | e | 5:17 AM | | procedure are in the | | | | PDT | | results section. | + +--------+ + + + | MAGNESIUM | Routin | 03/11/2018 | | Results for this | | | e | 5:17 AM | | procedure are in the | | | | PDT | | results section. | + +--------+ + + + | BASIC METABOLIC | Routin | 03/11/2018 | | Results for this | | PANEL | e | 5:17 AM | | procedure are in the | | | | PDT | | results section. | + +--------+ + + + | URINALYSIS, | Routin | 03/10/2018 | | Results for this | | MICROSCOPIC ONLY, | e | 8:44 AM | | procedure are in the | | WITH CULTURE IF | | PDT | | results section. | | INDICATED | | | | | + +--------+ + + + | PROTEIN/CREATININE | Routin | 03/10/2018 | | Results for this | | RATIO, URINE | e | 8:44 AM | | procedure are in the | | | | PDT | | results section. | + +--------+ + + + | CBC NO DIFFERENTIAL | Routin | 03/10/2018 | | Results for this | | | e | 3:53 AM | | procedure are in the | | | | PDT | | results section. | + +--------+ + + + | HEMOGLOBIN A1C | Add-On | 03/10/2018 | | Results for this | | | | 3:53 AM | | procedure are in the | | | | PDT | | results section. | + +--------+ + + + | BASIC METABOLIC | Routin | 03/10/2018 | | Results for this | | PANEL | e | 3:53 AM | | procedure are in the | | | | PDT | | results section. | + +--------+ + + + | MAGNESIUM | Routin | 03/09/2018 | | Results for this | | | e | 2:21 PM | | procedure are in the | | | | PDT | | results section. | + +--------+ + + + | ECHO COMPLETE | Routin | 03/09/2018 | | Results for this | | | e | 11:35 AM | | procedure are in the | | | | PDT | | results section. | + +--------+ + + + | CBC WITH | Routin | 03/09/2018 | | Results for this | | DIFFERENTIAL | e | 4:30 AM | | procedure are in the | | | | PDT | | results section. | + +--------+ + + + | MAGNESIUM | Routin | 03/09/2018 | | Results for this | | | e | 4:30 AM | | procedure are in the | | | | PDT | | results section. | + +--------+ + + + | BASIC METABOLIC | Routin | 03/09/2018 | | Results for this | | PANEL | e | 4:30 AM | | procedure are in the | | | | PDT | | results section. | + +--------+ + + + | TROPONIN I | Routin | 03/09/2018 | | Results for this | | | e | 1:20 AM | | procedure are in the | | | | PDT | | results section. | + +--------+ + + + | URINALYSIS WITH | Routin | 03/08/2018 | | Results for this | | MICROSCOPIC WITH | e | 10:31 PM | | procedure are in the | | CULTURE IF INDICATED | | PDT | | results section. | + +--------+ + + + | SODIUM, URINE, | Routin | 03/08/2018 | | Results for this | | RANDOM | e | 10:31 PM | | procedure are in the | | | | PDT | | results section. | + +--------+ + + + | CREATININE, URINE, | Routin | 03/08/2018 | | Results for this | | RANDOM | e | 10:31 PM | | procedure are in the | | | | PDT | | results section. | + +--------+ + + + | TROPONIN I | Routin | 03/08/2018 | | Results for this | | | e | 8:05 PM | | procedure are in the | | | | PDT | | results section. | + +--------+ + + + | CULTURE, MRSA | Routin | 03/08/2018 | | Results for this | | | e | 6:33 PM | | procedure are in the | | | | PDT | | results section. | + +--------+ + + + | XR CHEST AP PORTABLE | STAT | 03/08/2018 | | Results for this | | | | 2:44 PM | | procedure are in the | | | | PDT | | results section. | + +--------+ + + + | OXYGEN THERAPY | STAT | 03/08/2018 | | | | | | 2:14 PM | | | | | | PDT | | | + +--------+ + + + | EXTRA RANGEL TOP | Routin | 03/08/2018 | | Results for this | | TUBE | e | 2:05 PM | | procedure are in the | | | | PDT | | results section. | + +--------+ + + + | EXTRA LAVENDER TOP | Routin | 03/08/2018 | | Results for this | | TUBE | e | 2:05 PM | | procedure are in the | | | | PDT | | results section. | + +--------+ + + + | EXTRA GREEN TOP TUBE | Routin | 03/08/2018 | | Results for this | | | e | 2:05 PM | | procedure are in the | | | | PDT | | results section. | + +--------+ + + + | EXTRA GREEN TOP TUBE | Routin | 03/08/2018 | | Results for this | | | e | 2:05 PM | | procedure are in the | | | | PDT | | results section. | + +--------+ + + + | EXTRA GOLD TOP TUBE | Routin | 03/08/2018 | | Results for this | | | e | 2:05 PM | | procedure are in the | | | | PDT | | results section. | + +--------+ + + + | EXTRA BLUE TOP TUBE | Routin | 03/08/2018 | | Results for this | | | e | 2:05 PM | | procedure are in the | | | | PDT | | results section. | + +--------+ + + + | TROPONIN I | STAT | 03/08/2018 | | Results for this | | | | 2:05 PM | | procedure are in the | | | | PDT | | results section. | + +--------+ + + + | CBC WITH | STAT | 03/08/2018 | | Results for this | | DIFFERENTIAL | | 2:05 PM | | procedure are in the | | | | PDT | | results section. | + +--------+ + + + | TSH | STAT | 03/08/2018 | | Results for this | | | | 2:05 PM | | procedure are in the | | | | PDT | | results section. | + +--------+ + + + | B TYPE NATRIURETIC | STAT | 03/08/2018 | | Results for this | | PEPTIDE | | 2:05 PM | | procedure are in the | | | | PDT | | results section. | + +--------+ + + + | COMPREHENSIVE | STAT | 03/08/2018 | | Results for this | | METABOLIC PANEL | | 2:05 PM | | procedure are in the | | | | PDT | | results section. | + +--------+ + + + | POC GLUCOSE | Routin | 03/08/2018 | | Results for this | | | e | 1:59 PM | | procedure are in the | | | | PDT | | results section. | + +--------+ + + + | ECG 12 LEAD | STAT | 03/08/2018 | | Results for this | | | | 1:57 PM | | procedure are in the | | | | PDT | | results section. | + +--------+ + + + documented in this encounter Results Extra Lavender Top Tube (03/11/2018 5:17 AM PDT) + +-------+ + + + | Component | Value | Ref Range | Performed | Pathologist | | | | | At | Signature | + +-------+ + + + | Extra | Done | | [facility] | | | Lavender | | | [facility] | | | Top Tube | | | MEDICAL | | | | | | CENTER - | | | | | | LABORATORY | | + +-------+ + + + + + | Specimen | + + | Blood | + + + + + + + | Performing | Address | City/State/Zipcode | Phone Number | | Organization | | | | + + + + + | [facility] | [address] | [place] | [phone] | | [facility] | | [address] | | | - LABORATORY | | | | + + + + + Magnesium (03/11/2018 5:17 AM PDT) + +---------+ + + + | Component | Value | Ref Range | Performed | Pathologist | | | | | At | Signature | + +---------+ + + + | Magnesium | 1.7 (L) | 1.8 - 2.5 mg/dL | [facility] | | | | | | [facility] | | | | | | MEDICAL | | | | | | CENTER - | | | | | | LABORATORY | | + +---------+ + + + + + | Specimen | + + | Blood | + + + + + + + | Performing | Address | City/State/Zipcode | Phone Number | | Organization | | | | + + + + + | [facility] | [address] | [place] | [phone] | | [facility] | | [address] | | | - LABORATORY | | | | + + + + + Basic Metabolic Panel (03/11/2018 5:17 AM PDT) + + + + + + | Component | Value | Ref Range | Performed | Pathologist | | | | | At | Signature | + + + + + + | Na | 139 | 136 - 149 | [facility] | | | | | mmol/L | [facility] | | | | | | MEDICAL | | | | | | CENTER - | | | | | | LABORATORY | | + + + + + + | K | 3.4 (L) | 3.5 - 5.1 | [facility] | | | | | mmol/L | [facility] | | | | | | MEDICAL | | | | | | CENTER - | | | | | | LABORATORY | | + + + + + + | Cl | 105 | 98 - 109 mmol/L | [facility] | | | | | | [facility] | | | | | | MEDICAL | | | | | | CENTER - | | | | | | LABORATORY | | + + + + + + | CO2 | 26 | 24 - 31 mmol/L | [facility] | | | | | | [facility] | | | | | | MEDICAL | | | | | | CENTER - | | | | | | LABORATORY | | + + + + + + | Anion Gap | 8 | 3 - 16 mmol/L | [facility] | | | | | | [facility] | | | | | | MEDICAL | | | | | | CENTER - | | | | | | LABORATORY | | + + + + + + | Glucose | 97 | 70 - 109 mg/dL | [facility] | | | | | | [facility] | | | | | | MEDICAL | | | | | | CENTER - | | | | | | LABORATORY | | + + + + + + | BUN | 18 | 7 - 18 mg/dL | [facility] | | | | | | [facility] | | | | | | MEDICAL | | | | | | CENTER - | | | | | | LABORATORY | | + + + + + + | Creatinine | 1.29 | 0.60 - 1.30 | [facility] | | | | | mg/dL | [facility] | | | | | | MEDICAL | | | | | | CENTER - | | | | | | LABORATORY | | + + + + + + | eGFR if not | 53 (L)Comment: | >=60 | [facility] | | | | GLOMERULAR FILTRATION | mL/min/1.73m2 | [facility] | | | [facility] | RATE,ESTIMATED | | MEDICAL | | | | mL/min/[id number] than | | CENTER - | | | | 60 Chronic kidney | | LABORATORY | | | | disease,if found over a | | | | | | 3-month period.Less than | | | | | | 15 Kidney failureFor | | | | | | | | | | | | Americans,multiply the | | | | | | calculated GFR by 1.21. | | | | | | | | | | + + + + + + | Calcium | 9.5 | 8.3 - 10.5 | [facility] | | | | | mg/dL | [facility] | | | | | | MEDICAL | | | | | | CENTER - | | | | | | LABORATORY | | + + + + + + | BUN/Creatin | 14.0 | | [facility] | | | ine Ratio | | | [facility] | | | | | | MEDICAL | | | | | | CENTER - | | | | | | LABORATORY | | + + + + + + + + | Specimen | + + | Blood | + + + + + + + | Performing | Address | City/State/Zipcode | Phone Number | | Organization | | | | + + + + + | [facility] | [address] | [place] | [phone] | | [facility] | | [address] | | | - LABORATORY | | | | + + + + + Protein/Creatinine Ratio, Urine (03/10/2018 8:44 AM PDT) + + + + + + | Component | Value | Ref Range | Performed | Pathologist | | | | | At | Signature | + + + + + + | Protein, | 412 (H) | <6 mg/dL | [facility] | | | Urine | | | [facility] | | | | | | MEDICAL | | | | | | CENTER - | | | | | | LABORATORY | | + + + + + + | Creatinine, | 69 | mg/dL | [facility] | | | Urine, | | | [facility] | | | Random | | | MEDICAL | | | | | | CENTER - | | | | | | LABORATORY | | + + + + + + | PRO/CREA | 5.97 (H) | <0.20 mg/mg | [facility] | | | RATIO,URINE | | | [facility] | | | | | | MEDICAL | | | | | | CENTER - | | | | | | LABORATORY | | + + + + + + + + | Specimen | + + | Urine - Urine | | specimen obtained by | | clean catch | | procedure (specimen) | + + + + + + + | Performing | Address | City/State/Zipcode | Phone Number | | Organization | | | | + + + + + | [facility] | [address] | [place] | [phone] | | [facility] | | [address] | | | - LABORATORY | | | | + + + + + Urinalysis, Microscopic Only, with Culture if Indicated (03/10/2018 8:44 AM PDT) + + + + + + | Component | Value | Ref Range | Performed | Pathologist | | | | | At | Signature | + + + + + + | White Blood | 0-2 | 0 - 2 /HPF | [facility] | | | Cells, | | | [facility] | | | Urine | | | MEDICAL | | | | | | CENTER - | | | | | | LABORATORY | | + + + + + + | Red Blood | 0-2 | 0 - 2 /HPF | [facility] | | | Cells, | | | [facility] | | | Urine | | | MEDICAL | | | | | | CENTER - | | | | | | LABORATORY | | + + + + + + | Squamous | 0-2 | 0 - 2 /LPF | [facility] | | | Epithelial | | | [facility] | | | Cells, | | | MEDICAL | | | Urine | | | CENTER - | | | | | | LABORATORY | | + + + + + + | Bacteria, | Negative | Negative /HPF | [facility] | | | Urine | | | [facility] | | | | | | MEDICAL | | | | | | CENTER - | | | | | | LABORATORY | | + + + + + + | Mucus, | Present (A) | Negative /LPF | [facility] | | | Urine | | | [facility] | | | | | | MEDICAL | | | | | | CENTER - | | | | | | LABORATORY | | + + + + + + | Budding | Few (A) | Negative | [facility] | | | Yeast, | | | [facility] | | | Urine | | | MEDICAL | | | | | | CENTER - | | | | | | LABORATORY | | + + + + + + | Hyaline | 2-5 (A) | 0 - 2 /LPF | [facility] | | | Casts, | | | [facility] | | | Urine | | | MEDICAL | | | | | | CENTER - | | | | | | LABORATORY | | + + + + + + + + | Specimen | + + | Urine - Urine | | specimen obtained by | | clean catch | | procedure (specimen) | + + + + + + + | Performing | Address | City/State/Zipcode | Phone Number | | Organization | | | | + + + + + | [facility] | [address] | [place] | [phone] | | [facility] | | [address] | | | - LABORATORY | | | | + + + + + Hemoglobin A1C (03/10/2018 3:53 AM PDT) + +-------+ + + + | Component | Value | Ref Range | Performed | Pathologist | | | | | At | Signature | + +-------+ + + + | Hemoglobin | 5.8 | 4.3 - 6.0 % | [facility] | | | A1c | | | [facility] | | | | | | MEDICAL | | | | | | CENTER - | | | | | | LABORATORY | | + +-------+ + + + | Estimated | 120 | mg/dL | [facility] | | | Average | | | [facility] | | | Glucose | | | MEDICAL | | | | | | CENTER - | | | | | | LABORATORY | | + +-------+ + + + + + | Specimen | + + | Blood | + + + + + + + | Performing | Address | City/State/Zipcode | Phone Number | | Organization | | | | + + + + + | [facility] | [address] | [place] | [phone] | | [facility] | | [address] | | | - LABORATORY | | | | + + + + + Basic Metabolic Panel (03/10/2018 3:53 AM PDT) + + + + + + | Component | Value | Ref Range | Performed | Pathologist | | | | | At | Signature | + + + + + + | Na | 137 | 136 - 149 | [facility] | | | | | mmol/L | [facility] | | | | | | MEDICAL | | | | | | CENTER - | | | | | | LABORATORY | | + + + + + + | K | 3.6 | 3.5 - 5.1 | [facility] | | | | | mmol/L | [facility] | | | | | | MEDICAL | | | | | | CENTER - | | | | | | LABORATORY | | + + + + + + | Cl | 105 | 98 - 109 mmol/L | [facility] | | | | | | [facility] | | | | | | MEDICAL | | | | | | CENTER - | | | | | | LABORATORY | | + + + + + + | CO2 | 23 (L) | 24 - 31 mmol/L | [facility] | | | | | | [facility] | | | | | | MEDICAL | | | | | | CENTER - | | | | | | LABORATORY | | + + + + + + | Anion Gap | 9 | 3 - 16 mmol/L | [facility] | | | | | | [facility] | | | | | | MEDICAL | | | | | | CENTER - | | | | | | LABORATORY | | + + + + + + | Glucose | 98 | 70 - 109 mg/dL | [facility] | | | | | | [facility] | | | | | | MEDICAL | | | | | | CENTER - | | | | | | LABORATORY | | + + + + + + | BUN | 14 | 7 - 18 mg/dL | [facility] | | | | | | [facility] | | | | | | MEDICAL | | | | | | CENTER - | | | | | | LABORATORY | | + + + + + + | Creatinine | 1.27 | 0.60 - 1.30 | [facility] | | | | | mg/dL | [facility] | | | | | | MEDICAL | | | | | | CENTER - | | | | | | LABORATORY | | + + + + + + | eGFR if not | 54 (L)Comment: | >=60 | [facility] | | | | GLOMERULAR FILTRATION | mL/min/1.73m2 | [facility] | | | BRUNEIAN | RATE,ESTIMATED | | MEDICAL | | | | mL/min/1.37k1Ojqo than | | CENTER - | | | | 60 Chronic kidney | | LABORATORY | | | | disease,if found over a | | | | | | 3-month period.Less than | | | | | | 15 Kidney failureFor | | | | | | | | | | | | Americans,multiply the | | | | | | calculated GFR by 1.21. | | | | | | | | | | + + + + + + | Calcium | 9.5 | 8.3 - 10.5 | [facility] | | | | | mg/dL | [facility] | | | | | | MEDICAL | | | | | | CENTER - | | | | | | LABORATORY | | + + + + + + | BUN/Creatin | 11.0 | | [facility] | | | ine Ratio | | | [facility] | | | | | | MEDICAL | | | | | | CENTER - | | | | | | LABORATORY | | + + + + + + + + | Specimen | + + | Blood | + + + + + + + | Performing | Address | City/State/Zipcode | Phone Number | | Organization | | | | + + + + + | [facility] | [address] | [place] | [phone] | | [facility] | | [address] | | | - LABORATORY | | | | + + + + + CBC no Differential (03/10/2018 3:53 AM PDT) + + + + + + | Component | Value | Ref Range | Performed | Pathologist | | | | | At | Signature | + + + + + + | WBC | 7.8 | 4.0 - 11.0 K/uL | [facility] | | | | | | [facility] | | | | | | MEDICAL | | | | | | CENTER - | | | | | | LABORATORY | | + + + + + + | RBC | 4.09 (L) | 4.30 - 5.70 | [facility] | | | | | M/uL | [facility] | | | | | | MEDICAL | | | | | | CENTER - | | | | | | LABORATORY | | + + + + + + | Hemoglobin | 14.1 | 13.5 - 18.0 | [facility] | | | | | g/dL | [facility] | | | | | | MEDICAL | | | | | | CENTER - | | | | | | LABORATORY | | + + + + + + | Hematocrit | 40.3 | 40.0 - 51.0 % | [facility] | | | | | | [facility] | | | | | | MEDICAL | | | | | | CENTER - | | | | | | LABORATORY | | + + + + + + | MCV | 98.5 | 83.0 - 101.0 fL | [facility] | | | | | | [facility] | | | | | | [facility] | | | | | | C[facility] - | | | | | | LABORATORY | | + + + + + + | MCH | 34.5 | 28.0 - 35.0 pg | [facility] | | | | | | [facility] | | | | | | [facility] | | | | | | CENTER - | | | | | | LABORATORY | | + + + + + + | MCHC | 35.0 | 32.0 - 36.0 | [facility] | | | | | g/dL | [facility] | | | | | | [facility]ICAL | | | | | | CENTER - | | | | | | LABORATORY | | + + + + + + | RDW-CV | 13.3 | <15.0 % | [facility] | | | | | | [facility] | | | | | | [facility] | | | | | | [facility] - | | | | | | LABORATORY | | + + + + + + | RDW-SD | 48.0 (H) | 35.1 - 46.3 fL | [facility] | | | | | | [facility] | | | | | | MEDICAL | | | | | | CENTER - | | | | | | LABORATORY | | + + + + + + | Platelet | 244 | 140 - 440 K/uL | [facility] | | | Count | | | [facility] | | | | | | [facility] | | | | | | CENTER - | | | | | | LABORATORY | | + + + + + + | MPV | 10.6 | 6.5 - 12.4 fL | [facility] | | | | | | [facility] | | | | | | MEDICAL | | | | | | CENTER - | | | | | | LABORATORY | | + + + + + + | % nRBC | 0 | 0 - 2 per 100 | [facility] | | | | | WBC's | [facility] | | | | | | MEDICAL | | | | | | CENTER - | | | | | | LABORATORY | | + + + + + + | Absolute | 0.00 | 0.00 - 0.01 | [facility] | | | nRBC | | K/uL | [facility] | | | | | | MEDICAL | | | | | | CENTER - | | | | | | LABORATORY | | + + + + + + + + | Specimen | + + | Blood | + + + + + + + | Performing | Address | City/State/Zipcode | Phone Number | | Organization | | | | + + + + + | [facility] | [address] | [place] | [phone] | | [facility] | | [address] | | | - LABORATORY | | | | + + + + + Magnesium (03/09/2018 2:21 PM PDT) + +-------+ + + + | Component | Value | Ref Range | Performed | Pathologist | | | | | At | Signature | + +-------+ + + + | Magnesium | 2.3 | 1.8 - 2.5 mg/dL | [facility] | | | | | | [facility] | | | | | | [facility]ICAL | | | | | | CENTER - | | | | | | LABORATORY | | + +-------+ + + + + + | Specimen | + + | Blood | + + + + + + + | Performing | Address | City/State/Zipcode | Phone Number | | Organization | | | | + + + + + | [facility] | [address] | [place] | [phone] | | [facility] | | [address] | | | - LABORATORY | | | | + + + + + ECHO Complete (03/09/2018 11:35 AM PDT) + +---------+ + + + | Component | Value | Ref Range | Performed | Pathologist | | | | | At | Signature | + +---------+ + + + | BASELINE | 159/76 | mmHg | [facility] | | | BLOOD | | | | | | PRESSURE | | | | | + +---------+ + + + | Patient | 165 lbs | | [facility] | | | Weight | | | | | | (lbs) | | | | | + +---------+ + + + | Patient | 73 in | | [facility] | | | Height | | | | | + +---------+ + + + | LVIDd | 5.48 | cm | [facility] | | + +---------+ + + + | FS | 35 | % | [facility] | | + +---------+ + + + | LA volume | 46.67 | mL | [facility] | | + +---------+ + + + | Ascending | 3.42 | cm | [facility] | | | aorta | | | | | + +---------+ + + + | MV Area by | 2.16 | cm2 | [facility] | | | P 1/2 | | | | | | method | | | | | + +---------+ + + + | IVRT | 99.45 | msec | [facility] | | + +---------+ + + + | MV peak | 4.97 | mmHg | [facility] | | | gradient | | | | | + +---------+ + + + | MV Pressure | 101.8 | msec | [facility] | | | 1/2 time | | | | | + +---------+ + + + | LA Volume | 24 | mL/m2 | [facility] | | | Index | | | | | + +---------+ + + + | LV | 8 | cm | [facility] | | | Diastolic | | | | | | Length 4C | | | | | + +---------+ + + + | LV Systolic | 16.27 | cm2 | [facility] | | | Area PSAX | | | | | + +---------+ + + + | RV | 2.96 | cm | [facility] | | | Diastolic | | | | | | Basal | | | | | | Diameter | | | | | + +---------+ + + + | LV | 64 | % | [facility] | | | Barron's | | | | | | Biplane EF | | | | | + +---------+ + + + | LV ED | 107.96 | ml | [facility] | | | Volume | | | | | | (Barron's) | | | | | + +---------+ + + + | LV ED | 55 | ml/m2 | [facility] | | | Volume | | | | | | Index | | | | | + +---------+ + + + | LV ES | 38.74 | ml | [facility] | | | Volume | | | | | + +---------+ + + + | MV E' | 7.14 | cm/s | [facility] | | | Lateral | | | | | | Velocity | | | | | + +---------+ + + + | MV E' | 6.75 | cm/s | [facility] | | | Septal | | | | | | Velocity | | | | | + +---------+ + + + | MV | 330.06 | cm/s2 | [facility] | | | Deceleratio | | | | | | n [place] | | | | | + +---------+ + + + | MV | 351.05 | msec | [facility] | | | Deceleratio | | | | | | n Time | | | | | + +---------+ + + + | MV E/A | 1.08 | | [facility] | | | Ratio | | | | | + +---------+ + + + | MV Peak | 103.64 | cm/s | [facility] | | | A-Wave | | | | | + +---------+ + + + | MV Peak | 111.47 | cm/s | [facility] | | | E-Wave | | | | | + +---------+ + + + | RA Area | 15.32 | cm2 | [facility] | | + +---------+ + + + | LA/Aorta | 1.28 | | [facility] | | | Ratio | | | | | + +---------+ + + + | LA Area | 18.4 | cm2 | [facility] | | + +---------+ + + + | LA Systolic | 21.52 | mmHg | [facility] | | | Pressure | | | | | + +---------+ + + + | MV E/E | 16.51 | | [facility] | | | SEPTAL | | | | | + +---------+ + + + | MV E/E | 15.61 | | [facility] | | | LATERAL | | | | | + +---------+ + + + | LV ES | 20 | ml/m2 | [facility] | | | Volume | | | | | | Index | | | | | + +---------+ + + + | LV Area | 32.48 | cm2 | [facility] | | | Diastolic | | | | | + +---------+ + + + | Heart Rate | 54 | | [facility] | | + +---------+ + + + | Aortic Root | 3.88 | cm | [facility] | | | Diameter | | | | | + +---------+ + + + | IVS | 1.03 | cm | [facility] | | | Diastolic | | | | | | Thickness | | | | | | MM | | | | | + +---------+ + + + | LVPW | 1.03 | cm | [facility] | | | Diastolic | | | | | | Thickness | | | | | | MM | | | | | + +---------+ + + + | IVS | 1.74 | cm | [facility] | | | Systolic | | | | | | Thickness | | | | | | MM | | | | | + +---------+ + + + | LV Systolic | 3.56 | cm | [facility] | | | Diameter | | | | | | MM | | | | | + +---------+ + + + | LVPW | 1.49 | cm | [facility] | | | Systolic | | | | | | Thickness | | | | | | MM | | | | | + +---------+ + + + | AV Cusp | 1.81 | cm | [facility] | | | Seperation | | | | | | MM | | | | | + +---------+ + + + | LA Systolic | 4.98 | cm | [facility] | | | Diameter | | | | | | MM | | | | | + +---------+ + + + | TAPSE | 1.9 | cm | [facility] | | + +---------+ + + + | LVEF-TTE | 65 | % | [facility] | | | TRANSTHORAC | | | | | | IC ECHO | | | | | + +---------+ + + + + + | Specimen | + + | | + + + + + | Narrative | Performed At | + + + | 1. Mild left | [facility] | | atrial dilatation.2. Normal left ventricular size, wall thickness | | | and motion. Preserved left ventricular systolic function. LVEF is | | | 60-65%.3. Grade 2 left ventricular diastolic dysfunction.3. Mildly | | | thickened and calcified mitral valve with a mild central mitral valve | | | regurgitation.4. Mildly thickening calcified trileaflet aortic | | | valve with adequate opening. There is aortic valve sclerosis without | | | significant aortic valve stenosis.5. Mild aortic root dilatation | | | measuring 3.9 cm in diameter.6. Normal right-sided pressure. 7. | | | Not well-visualized IVC. | | |6. Normal right-sided pressure. | | |7. Not well-visualized IVC. | | + + + + +---------+ + + | Performing | Address | City/State/Zipcode | Phone Number | | Organization | | | | + +---------+ + + | [facility] | | | | + +---------+ + + Magnesium (03/09/2018 4:30 AM PDT) + +---------+ + + + | Component | Value | Ref Range | Performed | Pathologist | | | | | At | Signature | + +---------+ + + + | Magnesium | 1.2 (L) | 1.8 - 2.5 mg/dL | [facility] | | | | | | [facility] | | | | | | [facility]ICAL | | | | | | C[facility] - | | | | | | LABORATORY | | + +---------+ + + + + + | Specimen | + + | Blood | + + + + + + + | Performing | Address | City/State/Zipcode | Phone Number | | Organization | | | | + + + + + | [facility] | [address] | [place] | [phone] | | [facility] | | [address] | | | - LABORATORY | | | | + + + + + CBC with Differential (03/09/2018 4:30 AM PDT) + + + + + + | Component | Value | Ref Range | Performed | Pathologist | | | | | At | Signature | + + + + + + | WBC | 8.8 | 4.0 - 11.0 K/uL | [facility] | | | | | | [facility] | | | | | | [facility]ICAL | | | | | | CENTER - | | | | | | LABORATORY | | + + + + + + | RBC | 3.48 (L) | 4.30 - 5.70 | [facility] | | | | | M/uL | [facility] | | | | | | MEDICAL | | | | | | CENTER - | | | | | | LABORATORY | | + + + + + + | Hemoglobin | 11.5 (L) | 13.5 - 18.0 | [facility] | | | | | g/dL | [facility] | | | | | | MEDICAL | | | | | | CENTER - | | | | | | LABORATORY | | + + + + + + | Hematocrit | 34.5 (L) | 40.0 - 51.0 % | [facility] | | | | | | [facility] | | | | | | MEDICAL | | | | | | CENTER - | | | | | | LABORATORY | | + + + + + + | MCV | 99.1 | 83.0 - 101.0 fL | [facility] | | | | | | [facility] | | | | | | MEDICAL | | | | | | CENTER - | | | | | | LABORATORY | | + + + + + + | MCH | 33.0 | 28.0 - 35.0 pg | [facility] | | | | | | [facility] | | | | | | MEDICAL | | | | | | CENTER - | | | | | | LABORATORY | | + + + + + + | MCHC | 33.3 | 32.0 - 36.0 | [facility] | | | | | g/dL | [facility] | | | | | | MEDICAL | | | | | | CENTER - | | | | | | LABORATORY | | + + + + + + | RDW-CV | 13.4 | <15.0 % | [facility] | | | | | | [facility] | | | | | | MEDICAL | | | | | | CENTER - | | | | | | LABORATORY | | + + + + + + | RDW-SD | 48.7 (H) | 35.1 - 46.3 fL | [facility] | | | | | | [facility] | | | [facility] | | MEDICAL | | | | | | CENTER - | | | | | | LABORATORY | | + + + + + + | Platelet | 199 | 140 - 440 K/uL | [facility] | | | Count | | | [facility] | | | | | | MEDICAL | | | | | | CENTER - | | | | | | LABORATORY | | + + + + + + | MPV | 10.2 | 6.5 - 12.4 fL | [facility] | | | | | | [facility] | | | | | | MEDICAL | | | | | | CENTER - | | | | | | LABORATORY | | + + + + + + | % | 60.1 | 45.0 - 82.0 % | [facility] | | | Neutrophils | | | [facility] | | | | | | MEDICAL | | | | | | CENTER - | | | | | | LABORATORY | | + + + + + + | % | 23.7 | 20.0 - 45.0 % | [facility] | | | Lymphocytes | | | [facility] | | | | | | MEDICAL | | | | | | CENTER - | | | | | | LABORATORY | | + + + + + + | % Monocytes | 10.3 | 4.0 - 12.0 % | [facility] | | | | | | [facility] | | | | | | MEDICAL | | | | | | CENTER - | | | | | | LABORATORY | | + + + + + + | % | 4.9 | 0.0 - 5.0 % | [facility] | | | Eosinophils | | | [facility] | | | | | | MEDICAL | | | | | | CENTER - | | | | | | LABORATORY | | + + + + + + | % Basophils | 0.7 | 0.0 - 1.0 % | [facility] | | | | | | [facility] | | | | | | MEDICAL | | | | | | CENTER - | | | | | | LABORATORY | | + + + + + + | % Immature | 0.3 | 0.0 - 0.4 % | [facility] | | | Granulocyte | | | [facility] | | | s | | | MEDICAL | | | | | | CENTER - | | | | | | LABORATORY | | + + + + + + | Absolute | 5.30 | 1.80 - 8.50 | [facility] | | | Neutrophils | | K/uL | [facility] | | | | | | MEDICAL | | | | | | CENTER - | | | | | | LABORATORY | | + + + + + + | Absolute | 2.09 | 0.60 - 3.20 | [facility] | | | Lymphocytes | | K/uL | [facility] | | | | | | MEDICAL | | | | | | CENTER - | | | | | | LABORATORY | | + + + + + + | Absolute | 0.91 | 0.00 - 1.00 | [facility] | | | Monocytes | | K/uL | [facility] | | | | | | MEDICAL | | | | | | CENTER - | | | | | | LABORATORY | | + + + + + + | Absolute | 0.43 (H) | 0.00 - 0.40 | [facility] | | | Eosinophils | | K/uL | [facility] | | | | | | MEDICAL | | | | | | CENTER - | | | | | | LABORATORY | | + + + + + + | Absolute | 0.06 | 0.00 - 0.10 | [facility] | | | Basophils | | K/uL | [facility] | | | | | | MEDICAL | | | | | | CENTER - | | | | | | LABORATORY | | + + + + + + | Absolute | 0.03 | 0.00 - 0.03 | [facility] | | | Immature | | K/uL | [facility] | | | Granulocyte | | | MEDICAL | | | s | | | CENTER - | | | | | | LABORATORY | | + + + + + + | % nRBC | 0 | 0 - 2 per 100 | [facility] | | | | | WBC's | [facility] | | | | | | MEDICAL | | | | | | CENTER - | | | | | | LABORATORY | | + + + + + + | Absolute | 0.00 | 0.00 - 0.01 | [facility] | | | nRBC | | K/uL | [facility] | | | | | | MEDICAL | | | | | | CENTER - | | | | | | LABORATORY | | + + + + + + + + | Specimen | + + | Blood | + + + + + + + | Performing | Address | City/State/Zipcode | Phone Number | | Organization | | | | + + + + + | [facility] | [address] | [place] | [phone] | | [facility] | | [address] | | | - LABORATORY | | | | + + + + + Basic Metabolic Panel (03/09/2018 4:30 AM PDT) + + + + + + | Component | Value | Ref Range | Performed | Pathologist | | | | | At | Signature | + + + + + + | Na | 136 | 136 - 149 | [facility] | | | | | mmol/L | [facility] | | | | | | MEDICAL | | | | | | CENTER - | | | | | | LABORATORY | | + + + + + + | K | 3.4 (L) | 3.5 - 5.1 | [facility] | | | | | mmol/L | [facility] | | | | | | MEDICAL | | | | | | CENTER - | | | | | | LABORATORY | | + + + + + + | Cl | 108 | 98 - 109 mmol/L | [facility] | | | | | | [facility] | | | | | | MEDICAL | | | | | | CENTER - | | | | | | LABORATORY | | + + + + + + | CO2 | 25 | 24 - 31 mmol/L | [facility] | | | | | | [facility] | | | | | | MEDICAL | | | | | | CENTER - | | | | | | LABORATORY | | + + + + + + | Anion Gap | 3 | 3 - 16 mmol/L | [facility] | | | | | | [facility] | | | | | | MEDICAL | | | | | | CENTER - | | | | | | LABORATORY | | + + + + + + | Glucose | 95 | 70 - 109 mg/dL | [facility] | | | | | | [facility] | | | | | | MEDICAL | | | | | | CENTER - | | | | | | LABORATORY | | + + + + + + | BUN | 15 | 7 - 18 mg/dL | [facility] | | | | | | [facility] | | | | | | MEDICAL | | | | | | CENTER - | | | | | | LABORATORY | | + + + + + + | Creatinine | 1.29 | 0.60 - 1.30 | [facility] | | | | | mg/dL | [facility] | | | | | | MEDICAL | | | | | | CENTER - | | | | | | LABORATORY | | + + + + + + | eGFR if not | 53 (L)Comment: | >=60 | [facility] | | | | GLOMERULAR FILTRATION | mL/min/1.73m2 | [facility] | | | BRUNEIAN | RATE,ESTIMATED | | MEDICAL | | | | mL/min/[id number] than | | CENTER - | | | | 60 Chronic kidney | | LABORATORY | | | | disease,if found over a | | | | | | 3-month period.Less than | | | | | | 15 Kidney failureFor | | | | | | | | | | | | Americans,multiply the | | | | | | calculated GFR by 1.21. | | | | | | | | | | + + + + + + | Calcium | 8.7 | 8.3 - 10.5 | [facility] | | | | | mg/dL | [facility] | | | | | | MEDICAL | | | | | | CENTER - | | | | | | LABORATORY | | + + + + + + | BUN/Creatin | 11.6 | | [facility] | | | ine Ratio | | | [facility] | | | | | | MEDICAL | | | | | | CENTER - | | | | | | LABORATORY | | + + + + + + + + | Specimen | + + | Blood | + + + + + + + | Performing | Address | City/State/Zipcode | Phone Number | | Organization | | | | + + + + + | [facility] | [address] | [place] | [phone] | | [facility] | | [address] | | | - LABORATORY | | | | + + + + + Troponin I (03/09/2018 1:20 AM PDT) + + + + + + | Component | Value | Ref Range | Performed | Pathologist | | | | | At | Signature | + + + + + + | Troponin I | 0.01Comment: Reference | <0.06 ng/mL | [facility] | | | | Ranges:0.00-0.06 = | | [facility] | | | | NORMAL>0.06 = | | MEDICAL | | | | SUSPICIOUS FOR | | CENTER - | | | | MYOCARDIAL DAMAGE NOTE: | | LABORATORY | | | | Values greater than 0.50 | | | | | | ng/mL have been shown | | | | | | to be strongly | | | | | | associated with acute | | | | | | myocardial infarction. | | | | | | [employer] | | | | | | [employer] ([employer]) | | | | | | recommends a decision | | | | | | limit of 0.06 ng/mL for | | | | | | this assay. Results | | | | | | greater than 0.06 can | | | | | | reflect a pre-infarct | | | | | | acute coronary syndrome, | | | | | | but can also reflect | | | | | | myocardial necrosis or | | | | | | injury that is not due | | | | | | to coronary artery | | | | | | disease. Some of these | | | | | | causes are sepsis, | | | | | | hypocolemia, atrial | | | | | | fibrillation, heart | | | | | | failure, pulmonary | | | | | | embolism, myocarditis, | | | | | | myocardial contusion, | | | | | | and renal failure. The | | | | | | diagnosis of myocardial | | | | | | infarction should be | | | | | | based on a combination | | | | | | of the patient's | | | | | | clinical presentation | | | | | | and the clinical | | | | | | laboratory test results | | | | | | (especially serial | | | | | | troponin levels). | | | | + + + + + + + + | Specimen | + + | Blood | + + + + + + + | Performing | Address | City/State/Zipcode | Phone Number | | Organization | | | | + + + + + | [facility] | [address] | [place] | [phone] | | [facility] | | [address] | | | - LABORATORY | | | | + + + + + Creatinine, Urine, Random (03/08/2018 10:31 PM PDT) + +-------+ + + + | Component | Value | Ref Range | Performed | Pathologist | | | | | At | Signature | + +-------+ + + + | Creatinine, | 131 | mg/dL | [facility] | | | Urine, | | | [facility] | | | Random | | | MEDICAL | | | | | | CENTER - | | | | | | LABORATORY | | + +-------+ + + + + + | Specimen | + + | Urine - Urine | | specimen obtained by | | clean catch | | procedure (specimen) | + + + + + | Narrative | Performed At | + + + | The reference range and other method performance specifications have | [facility] | | not been established for this test. These results should be | [facility] | | integrated into the clinical context for interpretation. | [facility] | | | - LABORATORY | + + + + + + + + | Performing | Address | City/State/Zipcode | Phone Number | | Organization | | | | + + + + + | [facility] | [address] | [place] | [phone] | | [facility] | | [address] | | | - LABORATORY | | | | + + + + + Sodium, Urine, Random (03/08/2018 10:31 PM PDT) + +-------+ + + + | Component | Value | Ref Range | Performed | Pathologist | | | | | At | Signature | + +-------+ + + + | Sodium, | 82 | 27 - 287 mmol/L | [facility] | | | Urine | | | [facility] | | | Random | | | MEDICAL | | | | | | CENTER - | | | | | | LABORATORY | | + +-------+ + + + + + | Specimen | + + | Urine - Urine | | specimen obtained by | | clean catch | | procedure (specimen) | + + + + + + + | Performing | Address | City/State/Zipcode | Phone Number | | Organization | | | | + + + + + | [facility] | [address] | [place] | [phone] | | [facility] | | [address] | | | - LABORATORY | | | | + + + + + Urinalysis with Microscopic with Culture if Indicated (03/08/2018 10:31 PM PDT) + + + + + + | Component | Value | Ref Range | Performed | Pathologist | | | | | At | Signature | + + + + + + | Color, | Elba (A) | Light Yellow, | [facility] | | | Urine | | Yellow, Straw | [facility] | | | | | | MEDICAL | | | | | | CENTER - | | | | | | LABORATORY | | + + + + + + | Clarity | Cloudy (A) | Clear | [facility] | | | | | | [facility] | | | | | | MEDICAL | | | | | | CENTER - | | | | | | LABORATORY | | + + + + + + | pH, Urine | 5.0 | 5.0 - 8.0 | [facility] | | | | | | [facility] | | | | | | MEDICAL | | | | | | CENTER - | | | | | | LABORATORY | | + + + + + + | Specific | 1.016 | 1.001 - 1.030 | [facility] | | | [place], | | | [facility] | | | Urine | | | MEDICAL | | | | | | CENTER - | | | | | | LABORATORY | | + + + + + + | Protein, | >=500 mg/dL (A) | Negative | [facility] | | | Urine | | | [facility] | | | | | | MEDICAL | | | | | | CENTER - | | | | | | LABORATORY | | + + + + + + | Blood, | Negative | Negative | [facility] | | | Urine | | | [facility] | | | | | | MEDICAL | | | | | | CENTER - | | | | | | LABORATORY | | + + + + + + | Glucose, | Negative | Negative | [facility] | | | Urine | | | [facility] | | | | | | MEDICAL | | | | | | CENTER - | | | | | | LABORATORY | | + + + + + + | Ketones, | Negative | Negative | [facility] | | | Urine | | | [facility] | | | | | | MEDICAL | | | | | | CENTER - | | | | | | LABORATORY | | + + + + + + | Bilirubin, | Negative | Negative | [facility] | | | Urine | | | [facility] | | | | | | MEDICAL | | | | | | CENTER - | | | | | | LABORATORY | | + + + + + + | Nitrite, | Negative | Negative | [facility] | | | Urine | | | [facility] | | | | | | MEDICAL | | | | | | CENTER - | | | | | | LABORATORY | | + + + + + + | Leukocyte | Negative | Negative | [facility] | | | Esterase, | | | [facility] | | | Urine | | | MEDICAL | | | | | | CENTER - | | | | | | LABORATORY | | + + + + + + | Urobilinoge | Negative | 0.2 mg/dL, 1.0 | [facility] | | | n, Urine | | mg/dL, Negative | [facility] | | | | | | MEDICAL | | | | | | CENTER - | | | | | | LABORATORY | | + + + + + + | White Blood | 0-2 | 0 - 2 /HPF | [facility] | | | Cells, | | | [facility] | | | Urine | | | MEDICAL | | | | | | CENTER - | | | | | | LABORATORY | | + + + + + + | Red Blood | 0-2 | 0 - 2 /HPF | [facility] | | | Cells, | | | [facility] | | | Urine | | | MEDICAL | | | | | | CENTER - | | | | | | LABORATORY | | + + + + + + | Squamous | 10-15 (A) | 0 - 2 /LPF | [facility] | | | Epithelial | | | [facility] | | | Cells, | | | MEDICAL | | | Urine | | | CENTER - | | | | | | LABORATORY | | + + + + + + | Bacteria, | Negative | Negative /HPF | [facility] | | | Urine | | | [facility] | | | | | | MEDICAL | | | | | | CENTER - | | | | | | LABORATORY | | + + + + + + | Mucus, | Present (A) | Negative /LPF | [facility] | | | Urine | | | [facility] | | | | | | MEDICAL | | | | | | CENTER - | | | | | | LABORATORY | | + + + + + + | Urine | Urine Culture Not | | [facility] | | | Comment | Indicated | | [facility] | | | | | | MEDICAL | | | | | | CENTER - | | | | | | LABORATORY | | + + + + + + + + | Specimen | + + | Urine - Urine | | specimen obtained by | | clean catch | | procedure (specimen) | + + + + + + + | Performing | Address | City/State/Zipcode | Phone Number | | Organization | | | | + + + + + | [facility] | [address] | [place] | [phone] | | [facility] | | [address] | | | - LABORATORY | | | | + + + + + Troponin I (03/08/2018 8:05 PM PDT) + + + + + + | Component | Value | Ref Range | Performed | Pathologist | | | | | At | Signature | + + + + + + | Troponin I | 0.01Comment: Reference | <0.06 ng/mL | [facility] | | | | Ranges:0.00-0.06 = | | [facility] | | | | NORMAL>0.06 = | | MEDICAL | | | | SUSPICIOUS FOR | | CENTER - | | | | MYOCARDIAL DAMAGE NOTE: | | LABORATORY | | | | Values greater than 0.50 | | | | | | ng/mL have been shown | | | | | | to be strongly | | | | | | associated with acute | | | | | | myocardial infarction. | | | | | | [employer] | | | | | | [employer] ([employer]) | | | | | | recommends a decision | | | | | | limit of 0.06 ng/mL for | | | | | | this assay. Results | | | | | | greater than 0.06 can | | | | | | reflect a pre-infarct | | | | | | acute coronary syndrome, | | | | | | but can also reflect | | | | | | myocardial necrosis or | | | | | | injury that is not due | | | | | | to coronary artery | | | | | | disease. Some of these | | | | | | causes are sepsis, | | | | | | hypocolemia, atrial | | | | | | fibrillation, heart | | | | | | failure, pulmonary | | | | | | embolism, myocarditis, | | | | | | myocardial contusion, | | | | | | and renal failure. The | | | | | | diagnosis of myocardial | | | | | | infarction should be | | | | | | based on a combination | | | | | | of the patient's | | | | | | clinical presentation | | | | | | and the clinical | | | | | | laboratory test results | | | | | | (especially serial | | | | | | troponin levels). | | | | + + + + + + + + | Specimen | + + | Blood | + + + + + + + | Performing | Address | City/State/Zipcode | Phone Number | | Organization | | | | + + + + + | [facility] | [address] | [place] | [phone] | | [facility] | | [address] | | | - LABORATORY | | | | + + + + + Culture, MRSA (03/08/2018 6:33 PM PDT) + + + + + + | Component | Value | Ref Range | Performed | Pathologist | | | | | At | Signature | + + + + + + | Culture | Negative for MRSA by | | [facility] | | | | chromogenic agar method | | [facility] | | | | | | MEDICAL | | | | | | CENTER - | | | | | | LABORATORY | | + + + + + + + + | Specimen | + + | Tissue - Both | | anterior nares (body | | structure) | + + + + + + + | Performing | Address | City/State/Zipcode | Phone Number | | Organization | | | | + + + + + | [facility] | [address] | [place] | [phone] | | [facility] | | [address] | | | - LABORATORY | | | | + + + + + XR Chest AP Portable (03/08/2018 2:44 PM PDT) + + | Specimen | + + | | + + + + + | Narrative | Performed At | + + + | XR CHEST AP PORTABLE 03/08/2018 2:21 PM HISTORY: [facility]. | [facility] | | COMPARISON: None. Findings: Sternotomy wires and mediastinal | | | clips are present. The heart is borderline enlarged. There is | | | atherosclerosis of the aorta. Central pulmonary vasculature is | | | normal. Mild atelectasis are in the lung bases. There is moderate | | | spondylosis. IMPRESSION - No acute findings. Borderline | | | cardiomegaly. Dictated and Signed by: Justus Valdivia MD | | | Electronically signed: 03/08/2018 3:11 PM | | + + + + + | Procedure Note | + + | Maciel, Rad Results In - 03/08/2018 3:14 PM PDT XR CHEST AP PORTABLE 03/08/2018 2:21 PM | | | | HISTORY: SYNCOPE. | | | | COMPARISON: None. | | | | Findings: | | Sternotomy wires and mediastinal clips are present. The heart is borderline | | enlarged. There is atherosclerosis of the aorta. Central pulmonary vasculature | | is normal. Mild atelectasis are in the lung bases. There is moderate | | spondylosis. | | | | IMPRESSION - | | No acute findings. | | | | Borderline cardiomegaly. | | | | Dictated and Signed by: Justus Valdivia MD | | Electronically signed: 03/08/2018 3:11 PM | + + + +---------+ + + | Performing | Address | City/State/Zipcode | Phone Number | | Organization | | | | + +---------+ + + | [facility] | | | | + +---------+ + + TSH (03/08/2018 2:05 PM PDT) + + + + + + | Component | Value | Ref Range | Performed | Pathologist | | | | | At | Signature | + + + + + + | TSH | 0.80Comment: This is a | 0.45 - 5.33 | [facility] | | | | third generation TSH | uIU/mL | [facility] | | | | test. | | MEDICAL | | | | | | CENTER - | | | | | | LABORATORY | | + + + + + + + + | Specimen | + + | Blood | + + + + + + + | Performing | Address | City/State/Zipcode | Phone Number | | Organization | | | | + + + + + | [facility] | [address] | [place] | [phone] | | [facility] | | [address] | | | - LABORATORY | | | | + + + + + B Type Natriuretic Peptide (03/08/2018 2:05 PM PDT) + +---------+ + + + | Component | Value | Ref Range | Performed | Pathologist | | | | | At | Signature | + +---------+ + + + | BNP | 166 (H) | <100 pg/mL | [facility] | | | | | | [facility] | | | | | | MEDICAL | | | | | | CENTER - | | | | | | LABORATORY | | + +---------+ + + + + + | Specimen | + + | Blood | + + + + + + + | Performing | Address | City/State/Zipcode | Phone Number | | Organization | | | | + + + + + | [facility] | [address] | [place] | [phone] | | [facility] | | [address] | | | - LABORATORY | | | | + + + + + Troponin I (03/08/2018 2:05 PM PDT) + + + + + + | Component | Value | Ref Range | Performed | Pathologist | | | | | At | Signature | + + + + + + | Troponin I | 0.01Comment: Reference | <0.06 ng/mL | [facility] | | | | Ranges:0.00-0.06 = | | [facility] | | | | NORMAL>0.06 = | | MEDICAL | | | | SUSPICIOUS FOR | | CENTER - | | | | MYOCARDIAL DAMAGE NOTE: | | LABORATORY | | | | Values greater than 0.50 | | | | | | ng/mL have been shown | | | | | | to be strongly | | | | | | associated with acute | | | | | | myocardial infarction. | | | | | | [employer] | | | | | | Card[employer] ([employer]) | | | | | | recommends a decision | | | | | | limit of 0.06 ng/mL for | | | | | | this assay. Results | | | | | | greater than 0.06 can | | | | | | reflect a pre-infarct | | | | | | acute coronary syndrome, | | | | | | but can also reflect | | | | | | myocardial necrosis or | | | | | | injury that is not due | | | | | | to coronary artery | | | | | | disease. Some of these | | | | | | causes are sepsis, | | | | | | hypocolemia, atrial | | | | | | fibrillation, heart | | | | | | failure, pulmonary | | | | | | embolism, myocarditis, | | | | | | myocardial contusion, | | | | | | and renal failure. The | | | | | | diagnosis of myocardial | | | | | | infarction should be | | | | | | based on a combination | | | | | | of the patient's | | | | | | clinical presentation | | | | | | and the clinical | | | | | | laboratory test results | | | | | | (especially serial | | | | | | troponin levels). | | | | + + + + + + + + | Specimen | + + | Blood | + + + + + + + | Performing | Address | City/State/Zipcode | Phone Number | | Organization | | | | + + + + + | [facility] | [address] | [place] | [phone] | | [facility] | | [address] | | | - LABORATORY | | | | + + + + + Comprehensive Metabolic Panel (03/08/2018 2:05 PM PDT) + + + + + + | Component | Value | Ref Range | Performed | Pathologist | | | | | At | Signature | + + + + + + | Na | 138 | 136 - 149 | [facility] | | | | | mmol/L | [facility] | | | | | | MEDICAL | | | | | | CENTER - | | | | | | LABORATORY | | + + + + + + | K | 3.9 | 3.5 - 5.1 | [facility] | | | | | mmol/L | [facility] | | | | | | MEDICAL | | | | | | CENTER - | | | | | | LABORATORY | | + + + + + + | Cl | 105 | 98 - 109 mmol/L | [facility] | | | | | | [facility] | | | | | | MEDICAL | | | | | | CENTER - | | | | | | LABORATORY | | + + + + + + | CO2 | 26 | 24 - 31 mmol/L | [facility] | | | | | | [facility] | | | | | | MEDICAL | | | | | | CENTER - | | | | | | LABORATORY | | + + + + + + | Anion Gap | 7 | 3 - 16 mmol/L | [facility] | | | | | | [facility] | | | | | | MEDICAL | | | | | | CENTER - | | | | | | LABORATORY | | + + + + + + | Glucose | 138 (H) | 70 - 109 mg/dL | [facility] | | | | | | [facility] | | | | | | MEDICAL | | | | | | CENTER - | | | | | | LABORATORY | | + + + + + + | BUN | 20 (H) | 7 - 18 mg/dL | [facility] | | | | | | [facility] | | | | | | MEDICAL | | | | | | CENTER - | | | | | | LABORATORY | | + + + + + + | Creatinine | 1.56 (H) | 0.60 - 1.30 | [facility] | | | | | mg/dL | [facility] | | | | | | MEDICAL | | | | | | CENTER - | | | | | | LABORATORY | | + + + + + + | eGFR if not | 43 (L)Comment: | >=60 | [facility] | | | | GLOMERULAR FILTRATION | mL/min/1.73m2 | [facility] | | | [facility] | RATE,ESTIMATED | | MEDICAL | | | | mL/min/1.69b6Egvi than | | CENTER - | | | | 60 Chronic kidney | | LABORATORY | | | | disease,if found over a | | | | | | 3-month period.Less than | | | | | | 15 Kidney failureFor | | | | | | | | | | | | Americans,multiply the | | | | | | calculated GFR by 1.21. | | | | | | | | | | + + + + + + | Calcium | 9.1 | 8.3 - 10.5 | [facility] | | | | | mg/dL | [facility] | | | | | | MEDICAL | | | | | | CENTER - | | | | | | LABORATORY | | + + + + + + | Albumin | 3.3 | 3.2 - 5.0 g/dL | [facility] | | | | | | [facility] | | | | | | MEDICAL | | | | | | CENTER - | | | | | | LABORATORY | | + + + + + + | Bilirubin | 0.9 | 0.1 - 1.5 mg/dL | [facility] | | | Total | | | [facility] | | | | | | MEDICAL | | | | | | CENTER - | | | | | | LABORATORY | | + + + + + + | Total | 5.7 (L) | 6.0 - 7.8 g/dL | [facility] | | | Protein | | | [facility] | | | | | | MEDICAL | | | | | | CENTER - | | | | | | LABORATORY | | + + + + + + | AST | 20 | 10 - 42 U/L | [facility] | | | | | | [facility] | | | | | | MEDICAL | | | | | | CENTER - | | | | | | LABORATORY | | + + + + + + | ALT | 12 | 6 - 45 U/L | [facility] | | | | | | [facility] | | | | | | MEDICAL | | | | | | CENTER - | | | | | | LABORATORY | | + + + + + + | Alkaline | 50 | 40 - 110 U/L | [facility] | | | Phosphatase | | | [facility] | | | | | | MEDICAL | | | | | | CENTER - | | | | | | LABORATORY | | + + + + + + | Globulin | 2.4 | 2.1 - 3.8 g/dL | [facility] | | | | | | [facility] | | | | | | MEDICAL | | | | | | CENTER - | | | | | | LABORATORY | | + + + + + + | Albumin/Chantell | 1.4 | 0.8 - 2.0 | [facility] | | | bulin Ratio | | | [facility] | | | | | | MEDICAL | | | | | | CENTER - | | | | | | LABORATORY | | + + + + + + | BUN/Creatin | 12.8 | | [facility] | | | ine Ratio | | | [facility] | | | | | | MEDICAL | | | | | | CENTER - | | | | | | LABORATORY | | + + + + + + + + | Specimen | + + | Blood | + + + + + + + | Performing | Address | City/State/Zipcode | Phone Number | | Organization | | | | + + + + + | [facility] | [address] | [place] | [phone] | | [facility] | | [address] | | | - LABORATORY | | | | + + + + + CBC with Differential (03/08/2018 2:05 PM PDT) + + + + + + | Component | Value | Ref Range | Performed | Pathologist | | | | | At | Signature | + + + + + + | WBC | 7.4 | 4.0 - 11.0 K/uL | [facility] | | | | | | [facility] | | | | | | MEDICAL | | | | | | CENTER - | | | | | | LABORATORY | | + + + + + + | RBC | 3.79 (L) | 4.30 - 5.70 | [facility] | | | | | M/uL | [facility] | | | | | | MEDICAL | | | | | | CENTER - | | | | | | LABORATORY | | + + + + + + | Hemoglobin | 13.0 (L) | 13.5 - 18.0 | [facility] | | | | | g/dL | [facility] | | | | | | MEDICAL | | | | | | CENTER - | | | | | | LABORATORY | | + + + + + + | Hematocrit | 38.1 (L) | 40.0 - 51.0 % | [facility] | | | | | | [facility] | | | | | | MEDICAL | | | | | | CENTER - | | | | | | LABORATORY | | + + + + + + | MCV | 100.5 | 83.0 - 101.0 fL | [facility] | | | | | | [facility] | | | | | | MEDICAL | | | | | | CENTER - | | | | | | LABORATORY | | + + + + + + | MCH | 34.3 | 28.0 - 35.0 pg | [facility] | | | | | | [facility] | | | | | | MEDICAL | | | | | | CENTER - | | | | | | LABORATORY | | + + + + + + | MCHC | 34.1 | 32.0 - 36.0 | [facility] | | | | | g/dL | [facility] | | | | | | MEDICAL | | | | | | CENTER - | | | | | | LABORATORY | | + + + + + + | RDW-CV | 13.5 | <15.0 % | [facility] | | | | | | [facility] | | | | | | MEDICAL | | | | | | CENTER - | | | | | | LABORATORY | | + + + + + + | RDW-SD | 49.9 (H) | 35.1 - 46.3 fL | [facility] | | | | | | [facility] | | | | | | MEDICAL | | | | | | CENTER - | | | | | | LABORATORY | | + + + + + + | Platelet | 240 | 140 - 440 K/uL | [facility] | | | Count | | | [facility] | | | | | | MEDICAL | | | | | | CENTER - | | | | | | LABORATORY | | + + + + + + | MPV | 10.6 | 6.5 - 12.4 fL | [facility] | | | | | | [facility] | | | | | | MEDICAL | | | | | | CENTER - | | | | | | LABORATORY | | + + + + + + | % | 58.6 | 45.0 - 82.0 % | [facility] | | | Neutrophils | | | [facility] | | | | | | MEDICAL | | | | | | CENTER - | | | | | | LABORATORY | | + + + + + + | % | 23.1 | 20.0 - 45.0 % | [facility] | | | Lymphocytes | | | [facility] | | | | | | MEDICAL | | | | | | CENTER - | | | | | | LABORATORY | | + + + + + + | % Monocytes | 10.4 | 4.0 - 12.0 % | [facility] | | | | | | [facility] | | | | | | MEDICAL | | | | | | CENTER - | | | | | | LABORATORY | | + + + + + + | % | 6.6 (H) | 0.0 - 5.0 % | [facility] | | | Eosinophils | | | [facility] | | | | | | MEDICAL | | | | | | CENTER - | | | | | | LABORATORY | | + + + + + + | % Basophils | 0.9 | 0.0 - 1.0 % | [facility] | | | | | | [facility] | | | | | | MEDICAL | | | | | | CENTER - | | | | | | LABORATORY | | + + + + + + | % Immature | 0.4 | 0.0 - 0.4 % | [facility] | | | Granulocyte | | | [facility] | | | s | | | MEDICAL | | | | | | CENTER - | | | | | | LABORATORY | | + + + + + + | Absolute | 4.33 | 1.80 - 8.50 | [facility] | | | Neutrophils | | K/uL | [facility] | | | | | | MEDICAL | | | | | | CENTER - | | | | | | LABORATORY | | + + + + + + | Absolute | 1.71 | 0.60 - 3.20 | [facility] | | | Lymphocytes | | K/uL | [facility] | | | | | | MEDICAL | | | | | | CENTER - | | | | | | LABORATORY | | + + + + + + | Absolute | 0.77 | 0.00 - 1.00 | [facility] | | | Monocytes | | K/uL | [facility] | | | | | | MEDICAL | | | | | | CENTER - | | | | | | LABORATORY | | + + + + + + | Absolute | 0.49 (H) | 0.00 - 0.40 | [facility] | | | Eosinophils | | K/uL | [facility] | | | | | | MEDICAL | | | | | | CENTER - | | | | | | LABORATORY | | + + + + + + | Absolute | 0.07 | 0.00 - 0.10 | [facility] | | | Basophils | | K/uL | [facility] | | | | | | MEDICAL | | | | | | CENTER - | | | | | | LABORATORY | | + + + + + + | Absolute | 0.03 | 0.00 - 0.03 | [facility] | | | Immature | | K/uL | [facility] | | | Granulocyte | | | MEDICAL | | | s | | | CENTER - | | | | | | LABORATORY | | + + + + + + | % nRBC | 0 | 0 - 2 per 100 | [facility] | | | | | WBC's | [facility] | | | | | | MEDICAL | | | | | | CENTER - | | | | | | LABORATORY | | + + + + + + | Absolute | 0.00 | 0.00 - 0.01 | [facility] | | | nRBC | | K/uL | [facility] | | | | | | MEDICAL | | | | | | CENTER - | | | | | | LABORATORY | | + + + + + + + + | Specimen | + + | Blood | + + + + + + + | Performing | Address | City/State/Zipcode | Phone Number | | Organization | | | | + + + + + | [facility] | [address] | [place] | [phone] | | [facility] | | [address] | | | - LABORATORY | | | | + + + + + Extra Gold Top Tube (03/08/2018 2:05 PM PDT) + +-------+ + + + | Component | Value | Ref Range | Performed | Pathologist | | | | | At | Signature | + +-------+ + + + | Extra Gold | Done | | [facility] | | | Top Tube | | | [facility] | | | | | | MEDICAL | | | | | | CENTER - | | | | | | LABORATORY | | + +-------+ + + + + + | Specimen | + + | Blood | + + + + + + + | Performing | Address | City/State/Zipcode | Phone Number | | Organization | | | | + + + + + | [facility] | [address] | [place] | [phone] | | [facility] | | [address] | | | - LABORATORY | | | | + + + + + Extra Blue Top Tube (03/08/2018 2:05 PM PDT) + +-------+ + + + | Component | Value | Ref Range | Performed | Pathologist | | | | | At | Signature | + +-------+ + + + | Extra Blue | Done | | [facility] | | | Top Tube | | | [facility] | | | | | | MEDICAL | | | | | | CENTER - | | | | | | LABORATORY | | + +-------+ + + + + + | Specimen | + + | Blood | + + + + + + + | Performing | Address | City/State/Zipcode | Phone Number | | Organization | | | | + + + + + | [facility] | [address] | [place] | [phone] | | [facility] | | [address] | | | - LABORATORY | | | | + + + + + Extra Lavender Top Tube (03/08/2018 2:05 PM PDT) + +-------+ + + + | Component | Value | Ref Range | Performed | Pathologist | | | | | At | Signature | + +-------+ + + + | Extra | Done | | [facility] | | | Lavender | | | [facility] | | | Top Tube | | | MEDICAL | | | | | | CENTER - | | | | | | LABORATORY | | + +-------+ + + + + + | Specimen | + + | Blood | + + + + + + + | Performing | Address | City/State/Zipcode | Phone Number | | Organization | | | | + + + + + | [facility] | [address] | [place] | [phone] | | [facility] | | [address] | | | - LABORATORY | | | | + + + + + Extra Green Top Tube (03/08/2018 2:05 PM PDT) + +-------+ + + + | Component | Value | Ref Range | Performed | Pathologist | | | | | At | Signature | + +-------+ + + + | Extra Green | Done | | [facility] | | | Top Tube | | | [facility] | | | | | | MEDICAL | | | | | | CENTER - | | | | | | LABORATORY | | + +-------+ + + + + + | Specimen | + + | Blood | + + + + + + + | Performing | Address | City/State/Zipcode | Phone Number | | Organization | | | | + + + + + | [facility] | [address] | [place] | [phone] | | [facility] | | [address] | | | - LABORATORY | | | | + + + + + Extra Green Top Tube (03/08/2018 2:05 PM PDT) + +-------+ + + + | Component | Value | Ref Range | Performed | Pathologist | | | | | At | Signature | + +-------+ + + + | Extra Green | Done | | [facility] | | | Top Tube | | | [facility] | | | | | | MEDICAL | | | | | | CENTER - | | | | | | LABORATORY | | + +-------+ + + + + + | Specimen | + + | Blood | + + + + + + + | Performing | Address | City/State/Zipcode | Phone Number | | Organization | | | | + + + + + | [facility] | [address] | [place] | [phone] | | [facility] | | [address] | | | - LABORATORY | | | | + + + + + Extra Lavender Top Tube (03/08/2018 2:05 PM PDT) + +-------+ + + + | Component | Value | Ref Range | Performed | Pathologist | | | | | At | Signature | + +-------+ + + + | Extra | Done | | [facility] | | | Lavender | | | [facility] | | | Top Tube | | | MEDICAL | | | | | | CENTER - | | | | | | LABORATORY | | + +-------+ + + + + + | Specimen | + + | Blood | + + + + + + + | Performing | Address | City/State/Zipcode | Phone Number | | Organization | | | | + + + + + | [facility] | [address] | [place] | [phone] | | [facility] | | [address] | | | - LABORATORY | | | | + + + + + POC Glucose (03/08/2018 1:59 PM PDT) + +---------+ + + + | Component | Value | Ref Range | Performed | Pathologist | | | | | At | Signature | + +---------+ + + + | Glucose, | 140 (H) | 70 - 109 mg/dL | [facility] | | | POC | | | [facility] | | | | | | MEDICAL | | | | | | CENTER - | | | | | | LABORATORY | | + +---------+ + + + + + | Specimen | + + | Blood | + + + + + + + | Performing | Address | City/State/Zipcode | Phone Number | | Organization | | | | + + + + + | [facility] | [address] | [place] | [phone] | | [facility] | | [address] | | | - LABORATORY | | | | + + + + + ECG 12 lead (03/08/2018 1:57 PM PDT) + + + + + + | Component | Value | Ref Range | Performed | Pathologist | | | | | At | Signature | + + + + + + | VENTRICULAR | 50 | BPM | [facility] | | | RATE EKG | | | | | + + + + + + | ATRIAL RATE | 50 | BPM | [facility] | | + + + + + + | P-R | 360 | ms | [facility] | | | INTERVAL | | | | | + + + + + + | QRS | 146 | ms | [facility] | | | DURATION | | | | | + + + + + + | Q-T | 518 | ms | [facility] | | | INTERVAL | | | | | + + + + + + | Q-T | 472 | ms | [facility] | | | INTERVAL | | | | | | (CORRECTED) | | | | | + + + + + + | QRS AXIS | 77 | degrees | [facility] | | + + + + + + | T AXIS | -21 | degrees | [facility] | | + + + + + + | INTERPRETAT | Sinus bradycardia with | | [facility] | | | ION TEXT | 1st degree AV blockRight | | | | | | bundle branch | | | | | | blockNonspecific ST and | | | | | | T wave | | | | | | abnormalityAbnormal | | | | | | ECGNo previous ECGs | | | | | | availableConfirmed by | | | | | | LAVELLE DUFFY MD ([id number]) | | | | | | on 03/09/2018 7:50:05 AM | | | | + + + + + + + + | Specimen | + + | | + + + + + | Narrative | Performed At | + + + | | | + + + + +---------+ + + | Performing | Address | City/State/Zipcode | Phone Number | | Organization | | | | + +---------+ + + | [facility] | | | | + +---------+ + + documented in this encounter Visit Diagnoses + + | Diagnosis | + + | Syncope, unspecified syncope type - Primary | + + | 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, unspecified CKD stage, | | unspecified acute renal failure type (HCC) | + + | Symptomatic bradycardia Other specified cardiac dysrhythmias | + + | Essential hypertension Unspecified essential hypertension | + + | 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 Coronary atherosclerosis of unspecified | | type of bypass graft | + + | HTN (hypertension) Unspecified essential hypertension | + + documented in this encounter Administered Medications + +--------+ +--------+------+------+ | Medication Order | MAR | Action | Dose | Rate | Site | | | Action | Date | | | | + +--------+ +--------+------+------+ | acetaminophen (TYLENOL) tablet | Given | 03/09/20 | 650 mg | | | | 650 mg 650 mg, Oral, EVERY 4 | | 18 8:34 | | | | | HOURS PRN, Pain, or fever >= 38.6 | | PM PDT | | | | | C (101.5 F), Starting Sat | | | | | | | 03/08/18 at 1827 | | | | | | + +--------+ +--------+------+------+ +-------+ +--------+---+---+ | Given | 03/09/20 | 650 mg | | | | | 18 4:04 | | | | | | AM PDT | | | | +-------+ +--------+---+---+ +---+---+ | | | +---+---+ + +-------+ +--------+---+---+ | allopurinol (ZYLOPRIM) tablet | Given | 03/11/20 | 300 mg | | | | 300 mg 300 mg, Oral, DAILY, | | 18 8:07 | | | | | First dose on 03/08/18 at 1845 | | AM PDT | | | | + +-------+ +--------+---+---+ +-------+ +--------+---+---+ | Given | 03/10/20 | 300 mg | | | | | 18 8:46 | | | | | | AM PDT | | | | +-------+ +--------+---+---+ | Given | 03/09/20 | 300 mg | | | | | 18 8:50 | | | | | | AM PDT | | | | +-------+ +--------+---+---+ +---+---+ | | | +---+---+ + +-------+ +--------+---+---+ | aspirin EC tablet 325 mg 325 | Given | 03/11/20 | 325 mg | | | | mg, Oral, DAILY, First dose on | | 18 8:07 | | | | | 03/09/18 at 0900, Do not cut | | AM PDT | | | | | or crush., | | | | | | + +-------+ +--------+---+---+ +-------+ +--------+---+---+ | Given | 03/10/20 | 325 mg | | | | | 18 8:46 | | | | | | AM PDT | | | | +-------+ +--------+---+---+ | Given | 03/09/20 | 325 mg | | | | | 18 8:50 | | | | | | AM PDT | | | | +-------+ +--------+---+---+ +---+---+ | | | +---+---+ + +-------+ +-------+---+---+ | atorvaSTATin (LIPITOR) tablet | Given | 03/10/20 | 40 mg | | | | 40 mg 40 mg, Oral, NIGHTLY, | | 18 8:36 | | | | | First dose on 03/08/18 at 2100 | | PM PDT | | | | + +-------+ +-------+---+---+ +-------+ +-------+---+---+ | Given | 03/09/20 | 40 mg | | | | | 18 8:34 | | | | | | PM PDT | | | | +-------+ +-------+---+---+ | Given | 03/08/20 | 40 mg | | | | | 18 8:00 | | | | | | PM PDT | | | | +-------+ +-------+---+---+ +---+---+ | | | +---+---+ + +-------+ +--------+---+---+ | atropine 0.4 mg/mL injection | Given | 03/08/20 | 0.4 mg | | | | 0.4 mg 0.4 mg, Intravenous, | | 18 5:47 | | | | | EVERY 5 MIN PRN, Bradycardia, | | PM PDT | | | | | Call MD keep 1 at bedside, thank | | | | | | | you, Starting 03/08/18 at | | | | | | | 1718 | | | | | | + +-------+ +--------+---+---+ +-------+ +--------+---+---+ | Given | 03/08/20 | 0.4 mg | | | | | 18 5:34 | | | | | | PM PDT | | | | +-------+ +--------+---+---+ +---+---+ | | | +---+---+ + +-------+ +--------+---+ + | heparin 5,000 units/mL | Given | 03/11/20 | 5,000 | | Abdomen- | | injection 5,000 Units 5,000 | | 18 8:07 | Units | | RLQ | | Units, Subcutaneous, EVERY 12 | | AM PDT | | | | | HOURS (2 times per day), First | | | | | | | dose on 03/09/18 at 0900 | | | | | | + +-------+ +--------+---+ + +-------+ +--------+---+ + | Given | 03/10/20 | 5,000 | | Abdomen- | | | 18 8:36 | Units | | LLQ | | | PM PDT | | | | +-------+ +--------+---+ + | Given | 03/10/20 | 5,000 | | Abdomen- | | | 18 8:47 | Units | | RLQ | | | AM PDT | | | | +-------+ +--------+---+ + +---+---+ | | | +---+---+ + +-------+ +-------+---+---+ | isosorbide mononitrate (IMDUR) | Given | 03/11/20 | 30 mg | | | | ER tablet 30 mg 30 mg, Oral, | | 18 9:57 | | | | | DAILY, First dose on Sat03/11/18 | | AM PDT | | | | | at 1000, Tablet may be cut where | | | | | | | scored but do not crush., | | | | | | + +-------+ +-------+---+---+ +---+---+ | | | +---+---+ + +---------+ +---+ +---+ | lactated ringers (LR) infusion | New Bag | 03/09/20 | | 75 mL/hr | | | at 75 mL/hr, Intravenous, | | 18 8:06 | | | | | CONTINUOUS, Starting 03/08/18 | | AM PDT | | | | | at 1720 | | | | | | + +---------+ +---+ +---+ +---------+ +--------+ +---+ | New Bag | 03/08/20 | 1,000 | 75 mL/hr | | | | 18 5:49 | mLs | | | | | PM PDT | | | | +---------+ +--------+ +---+ +---+---+ | | | +---+---+ + +-------+ +--------+---+---+ | levothyroxine (SYNTHROID) | Given | 03/11/20 | 88 mcg | | | | tablet 88 mcg 88 mcg, Oral, | | 18 6:39 | | | | | DAILY BEFORE BREAKFAST, First | | AM PDT | | | | | dose on 03/09/18 at 0730, Give | | | | | | | before breakfast., | | | | | | + +-------+ +--------+---+---+ +-------+ +--------+---+---+ | Given | 03/10/20 | 88 mcg | | | | | 18 6:35 | | | | | | AM PDT | | | | +-------+ +--------+---+---+ | Given | 03/09/20 | 88 mcg | | | | | 18 6:19 | | | | | | AM PDT | | | | +-------+ +--------+---+---+ +---+---+ | | | +---+---+ + +-------+ +-------+---+---+ | lisinopril (PRINIVIL, ZESTRIL) | Given | 03/10/20 | 10 mg | | | | tablet 10 mg 10 mg, Oral, 2 | | 18 8:36 | | | | | TIMES DAILY, First dose on Mon | | PM PDT | | | | | 03/10/18 at 0900 | | | | | | + +-------+ +-------+---+---+ +-------+ +-------+---+---+ | Given | 03/10/20 | 10 mg | | | | | 18 8:46 | | | | | | AM PDT | | | | +-------+ +-------+---+---+ +---+---+ | | | +---+---+ + +-------+ +-------+---+---+ | lisinopril (PRINIVIL, ZESTRIL) | Given | 03/11/20 | 20 mg | | | | tablet 20 mg 20 mg, Oral, | 18 8:07 | | | | | TIMES DAILY, First dose (after | | AM PDT | | | | | last modification) on 03/11/18 | | | | | | | at 0900 | | | | | | + +-------+ +-------+---+---+ +---+---+ | | | +---+---+ + +---------+ +-----+ +---+ | magnesium sulfate 2 g/50 mL | New Bag | 03/09/20 | 2 g | 25 mL/hr | | | IVPB 2 g 2 g, Intravenous, | | 18 6:19 | | | | | Administer over 120 Minutes, | | AM PDT | | | | | ONCE, Anselmo 03/09/18 at 0630, For 1 | | | | | | | dose, Maximum recommended | | | | | | | infusion rate = 1 gram/hour., | | | | | | + +---------+ +-----+ +---+ +---+---+ | | | +---+---+ + +---------+ +-----+ +---+ | magnesium sulfate 2 g/50 mL | New Bag | 03/09/20 | 2 g | 25 mL/hr | | | IVPB 2 g 2 g, Intravenous, | | 18 9:57 | | | | | Administer over 120 Minutes, | | AM PDT | | | | | ONCE, Anselmo 03/09/18 at 1000, For 1 | | | | | | | dose, Infuse over 2 hours., | | | | | | + +---------+ +-----+ +---+ +---+---+ | | | +---+---+ + +-------+ +------+---+---+ | melatonin tablet 3 mg 3 mg, | Given | 03/09/20 | 3 mg | | | | Oral, NIGHTLY PRN, Insomnia, | | 18 8:34 | | | | | Starting 03/09/18 at 1925 | | PM PDT | | | | + +-------+ +------+---+---+ +---+---+ | | | +---+---+ + +-------+ +-------+---+---+ | pantoprazole (PROTONIX) DR | Given | 03/11/20 | 40 mg | | | | tablet 40 mg 40 mg, Oral, DAILY | | 18 6:39 | | | | | BEFORE BREAKFAST, First dose on | | AM PDT | | | | | 03/09/18 at 0730, Do not cut | | | | | | | or crush., Indication: GERD | | | | | | + +-------+ +-------+---+---+ +-------+ +-------+---+---+ | Given | 03/10/20 | 40 mg | | | | | 18 6:35 | | | | | | AM PDT | | | | +-------+ +-------+---+---+ | Given | 03/09/20 | 40 mg | | | | | 18 6:19 | | | | | | AM PDT | | | | +-------+ +-------+---+---+ +---+---+ | | | +---+---+ + +-------+ +--------+---+---+ | potassium chloride (Klor-Con | Given | 03/09/20 | 40 mEq | | | | M20) ER tablet 40 mEq 40 mEq, | | 18 6:19 | | | | | Oral, ONCE, 03/09/18 at 0600, | | AM PDT | | | | | For 1 dose, OK to substitute | | | | | | | liquid formulation if better | | | | | | | tolerated., | | | | | | + +-------+ +--------+---+---+ +---+---+ | | | +---+---+ + +---------+ +--------+-------+---+ | sodium chloride 0.9% (NS) bolus | New Bag | 03/08/20 | 1,000 | 2000 | | | 1,000 mL 1,000 mL, Intravenous, | | 18 2:26 | mLs | mL/hr | | | Administer over 30 Minutes, | | PM PDT | | | | | ONCE, 03/08/18 at 1420, For 1 | | | | | | | dose | | | | | | + +---------+ +--------+-------+---+ +---+---+ | | | +---+---+ + +-------+ +---+---+---+ | trolamine salicylate | Given | 03/09/20 | | | | | (ASPERCREME) 10% cream Topical, | | 18 4:44 | | | | | 4 TIMES DAILY PRN, Pain, Starting | | AM PDT | | | | | 03/09/18 at 0411 | | | | | | + +-------+ +---+---+---+ +---+---+ | | | +---+---+ documented in this encounter
--- OUTSIDE RECORDS SUMMARY | ~2019-10-02 | XMS | Encounter Summary ---
Demographics + + + | Address | [address] | | | [place] [address] | + + + | Home Phone | | + + + | Preferred Language | Unknown | + + + | Marital Status | | + + + | Moravian Affiliation | 1077 | + + + | Race | Unknown | + + + | Ethnic Group | Unknown | + + + Author + + + | Author | [facility] | | | and [place] | + + + | Organization | [facility] | | | and [place] | + + + | Address | Unknown | + + + | Phone | Unavailable | + + + Support + + +---------+ + | Name | Relationship | Address | Phone | + + +---------+ + | Rhona Pinon | ECON | Unknown | | + + +---------+ + | Rhona Pinon | ECON | Unknown | | + + +---------+ + Care Team Providers + +------+ + | Care Air Bag Stripper Name | Role | Phone | + +------+ + | Osbaldo Wood MD | PCP | | + +------+ + Reason for Visit Diagnostic/Screening (Routine) +--------+--------+ + + + + | Status | Reason | Specialty | Diagnoses / | Referred By | Referred To | | | | | Procedures | Contact | Contact | +--------+--------+ + + + + | Closed | | Radiology | Diagnoses | Wongsuwasam, | [facility] | | | | | CAD, | MD Hans | Medicine | | | | | multiple | [address] | | | | | vessel | [address] 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 [place], | | | | | [place], | [place] [address] | | | | | [place] [address] | [phone] | | | | | [phone] | | | +--------+ + + + [...] + + +---------+ + + | potassium 99 mg | Take 1 tablet by | | 0 | 08/10/19 | | | tablet | mouth Daily. | | | 20 | | + + + +---------+ + [...] Cardiology | Hans Blanco, | | | 2020 | Visit | | MD Eda [address] | | | | | | [place], | | | | | | [place] [address] | | | | | | [phone] | | | | | | | | +--------+---------+ + + + documented as of this encounter Procedures + +--------+ + + + | Procedure Name | Priori | Date/Time | Associated Diagnosis | Comments | | | ty | | | | + +--------+ + + + | NM NUCLEAR STRESS | Routin | 08/25/2019 | CAD, multiple | Results for this | | TEST (PHARMACOLOGIC | e | 1:07 PM | vessel Ischemic | procedure are in the | | - VASODILATOR) | | PDT | cardiomyopathy | results section. | | | | | Congestive heart | | | | | | failure, unspecified | | | | | | HF chronicity, | | | | | | unspecified heart | | | | | | failure type (HCC) | | | | | | S/P CABG x 3 | | + +--------+ + + + documented in this encounter Visit Diagnoses Not on filedocumented in this encounter Administered Medications + +--------+ + +------+------+ | Medication Order | MAR | Action | Dose | Rate | Site | | | Action | Date | | | | + +--------+ + +------+------+ | technetium TC-99M sestamibi | Given | 08/25/19 | 31.5 | | | | (CARDIOLITE) injection 31.5 | | 20 1:07 | millicur | | | | millicurie 31.5 millicurie, | | PM PDT | ies | | | | Intravenous, ONCE PRN, Other, | | | | | | | Starting 08/25/19 at 1307, For | | | | | | | 1 dose, Nuclear Medicine | | | | | | + +--------+ + +------+------+ +---+---+ | | | +---+---+ documented in this encounter"
--- OUTSIDE RECORDS SUMMARY | ~2019-10-02 | XMS | Encounter Summary ---
Demographics + + + | Address | [address] | | | [place] [address] | + + + | Home Phone | | + + + | Preferred Language | Unknown | + + + | Marital Status | | + + + | Anglican Affiliation | 1077 | + + + | Race | Unknown | + + + | Ethnic Group | Unknown | + + + Author + + + | Author | [facility] | | | and [place] | + + + | Organization | [facility] | | | [...] Team Providers + +------+ + | Care Major Case Detective Name | Role | Phone | + +------+ + | Osbaldo Wood MD | PCP | | + +------+ + Reason for Visit +--------+ + | Reason | Comments | +--------+ + | Other | potassium dosage | +--------+ + Encounter Details +--------+ + + + + | Date | Type | Department | Care Team | Description | +--------+ + + + + | 08/05/ | Telephone | [facility] | LopezsamHans, | Other (potassium | | 2019 | | CARDIOLOGY [address] | MD [address] | dosage) | | | | [place], | [place], | | | | | [place] [address] | [place] [address] | | | | | [phone] | [phone] | | | | | | | [...] [place], | | | | | | [place] [address] | | | | | | [phone] | | | | | | | | +--------+---------+ + + + documented as of this encounter Visit Diagnoses Not on filedocumented in this encounter"
--- OUTSIDE RECORDS SUMMARY | ~2019-10-02 | XMS | Encounter Summary ---
Demographics + + + | Address | [address] | | | [place] [address] | + + + | Home Phone | | + + + | Preferred Language | Unknown | + + + | Marital Status | | + + + | Episcopal Affiliation | 1077 | + + + | Race | Unknown | + + + | Ethnic Group | Unknown | + + + Author + + + | Author | [facility] | | | and [place] | + + + | Organization | [facility] | | [...] Team Providers + +------+ + | Care Mechanical Drafter Name | Role | Phone | + +------+ + PCP | Unavailable | + +------+ + Encounter Details +--------+ + + + + | Date | Type | Department | Care Team | Description | +--------+ + + + + | 04/06/ | Hospital | [facility] | Bian[place], | | | 2003 - | Encounter | MED CTR CANCER | Dez Leyva MD [address] | | | | | [place] [address] | [place] | | | 06/07/ | | [place], [place] | [place] [address] | | | 2003 | | [address] | [phone] | | | | | [phone] | | | +--------+ + + + [...] Description | +--------+---------+ + + + | 09/18/ | Office | Cardiology | [place]ans, | | | 2019 | Visit | | MD Eda Howard | | | | | | [place], | | | | | | [place] [address] | | | | | | [phone] | | | | | | | | +--------+---------+ + + + documented as of this encounter Visit Diagnoses Not on filedocumented in this encounter"
--- OUTSIDE RECORDS SUMMARY | ~2019-10-02 | XMS | Encounter Summary ---
Demographics + + + | Address | [address] | | | [employer] [address] | + + + | Home Phone | | + + + | Preferred Language | Unknown | + + + | Marital Status | | + + + | Latter-Day Affiliation | 1077 | + + + | Race | Unknown | + + + | Ethnic Group | Unknown | + + + Author + + + | Author | [facility] | | | and [place] | + + + | Organization | [facility] | | | and [...] Team Providers + +------+ + | Care Retail Sales Lead Name | Role | Phone | + +------+ + | Osbaldo Wood MD | PCP | | + +------+ + Reason for Referral Diagnostic/Screening (Routine) +--------+--------+ + + + + | Status | Reason | Specialty | Diagnoses / | Referred By | Referred To | | | | | Procedures | Contact | Contact | +--------+--------+ + + + + | Closed | | Radiology | Diagnoses | Shayywasam, | [facility] | | | | | CAD, | MD Callie | Medicine | | | | | multiple | [address] | | | | | vessel | [address] | [place], | | | | | Ischemic | [place], | [place] | | | | | cardiomyopat | [place] [address] | [address] | | | | | hy | Phone: | Phone: | | | | | Congestive | [phone] | [phone] | | | | | heart | Fax: | Fax: | | | | | failure, | [phone] | [phone] | | | | | unspecified | [...] | | +--------+--------+ + + + + Diagnostic/Screening (Routine) +--------+--------+ + + + + | Status | Reason | Specialty | Diagnoses / | Referred By | Referred To | | | | | Procedures | Contact | Contact | +--------+--------+ + + + + | Closed | | Radiology | Diagnoses | Francis, | [facility] | | | | | CAD, | MD Callie | [address] | | | | | multiple | [address] | [place], | | | | | vessel | [address] | [place] | | | | | Ischemic | [place], | [address] | | | | | cardiomyopat | [place] [address] | Phone: | | | | | hy | Phone: | [phone] | | | | | Congestive | [phone] | Fax: | | | | | heart | Fax: | [phone] | | | | | failure, | [phone] | | | | | | unspecified | | | | | | | HF | | | | | | | chronicity, | | | | | | | unspecified | | | | | | | heart | | | | | | | failure type | | | | | | | ([facility]) | | | | | | | Procedures | | | | | | | ECHO | | | | | | | Complete | | | +--------+--------+ + + + + Reason for Visit + + + | Reason | Comments | + + + | Annual Visit | | + + + | Bradycardia | | + + + Evaluate & Treat (Routine) +--------+--------+ + + + + | Status | Reason | Specialty | Diagnoses / | Referred By | Referred To | | | | | Procedures | Contact | Contact | +--------+--------+ + + + + | Closed | | Cardiology | Diagnoses | [place], | Francis, | | | | | Angina at | Osbaldo Leyva, | MD Callie | | | | | rest ([facility]) | [address] | [address] [place] [address] | | | | | Procedures | [address] | [address] | | | | | FUP - LAST | [place], | [place], | | | | | SEEN | [place] [address] | [place] [address] | | | | | 04-11-2018 | Phone: | Phone: | | | | | [employer] | [phone] | [phone] | | | | | | Fax: | Fax: | | | | | | [phone] | [phone] | +--------+--------+ + + + + Encounter Details +--------+---------+ + + + | Date | Type | Department | Care Team | Description | +--------+---------+ + + + | 07/31/ | Office | [facility] | Callie Blanco, | Symptomatic | | 2020 | Visit | CARDIOLOGY [address] | bradycardia (Primary | | | | [address] [place], | [place], | Dx); CAD, multiple | | | | [place] [address] | [place] [address] | vessel; Ischemic | | | | [phone] | [phone] | cardiomyopathy - | | | | | | ECHO Jun 2014 EF | | | | | | 55-60%; Congestive | | | | | | heart failure, | | | | | | unspecified HF | | | | | | chronicity, | | | | | | unspecified heart | | | | | | failure type (HCC); | | | | | | S/P CABG x 1990 | +--------+---------+ + + + Social History [...] + + + | Blood Pressure | 112/64 | 07/31/2019 1:57 PM | | | | | PST | | + + + + + | Pulse | 59 | 07/31/2019 1:57 PM | | | | | PST | | + + + + + | Temperature | - | - | | + + + + + | Respiratory Rate | 18 | 07/31/2019 1:57 PM | | | | | PST | | + + + + + | Oxygen Saturation | - | - | | + + + + + | Inhaled Oxygen | - | - | | | Concentration | | | | + + + + + | Weight | 104.3 kg (229 lb 15 | 07/31/2019 1:57 PM | | | | oz) | PST | | + + + + + | Height | 185.4 cm (6' 1") | 07/31/2019 1:57 PM | | | | | PST | | + + + + + | Body Mass Index | 30.34 | 07/31/2019 1:57 PM | | | | | PST [...] + + documented as of this encounter Patient Instructions Patient Instructions Michela Iglesias RN - 07/31/2019 2:00 PM PST Stop Furosemide Start Torsemide 10mg - take one tablet by mouth one time daily in the morning Restart Rosuvastatin 20mg - take one tablet by mouth one time daily in the evening Please check to see if you are already taking Potassium, please call the office to let us k now yes or no and if yes what the dosage is. Blood test: Non-fasting Date Due: today Where to go for labs: [facility]- [address] [place] [address]. Check blood pressure and pulse twice daily for two weeks, mail back in envelope provided Blood test: Non-fasting Date Due: 1 week after starting on the Torsemide Where to go for labs: Lab of your choice, please see lab orders, take them with you to the lab. Persantine/Lexiscan Myoview Date: Check-in Time: Where to Check In: Instructions 1. Nothing to eat or drink anything 6 hours prior to Persantine/Lexiscan 2. DO NOT drink caffeine 12 hours prior to the test. 3. DO NOT take any As needed Nitro or Isosorbide the night before or the morning of the te st. 4. Hold AGGRENOX for 24 hours prior to test if having a Persantine/Lexiscan. 5. Hold THEOPHYLLINE 1 week prior if having a Persantine/Lexiscan. 6. You can take all other medications the morning of the test with a small sip of water. 7. Please bring a list of your current medications with you. 8. Straight Treadmill or Exercise Myoview: wear comfortable clothes and walking shoes. Resting Portion of test: Date: Check-in Time: Where to Check In: Echo: Date: Check-In Time: Where to Check In: Follow up appointment: 4 weeks Provider: Date: Check-In Time: documented in this encounter Progress Notes Callie Blanco MD - 07/31/2019 2:00 PM PSTFormatting of this note might be different f rom the original. PATIENT NAME: Wilmer Pinon : 1935: AGE: 83 y.o. PRIMARY CARE: Osbaldo Wood MD OUTPATIENT FOLLOW UP VISIT Date of Service: 07/31/2019 HISTORY OF PRESENT ILLNESS: Wilmer Pinon is a 83 y.o. male with a history of asymptomatic irreversible bradycardia , coronary artery disease, post CABG 1990, stage III chronic kidney disease, essential hyper tension and mixed hyperlipidemia. He is being seen today for annual follow up. He was last seen 04/11/2018 at which time patient was started on amlodipine 5 mg once a day to lower blood pressure and check blood pressure for two weeks. Since that time, patient rep orts feeling " in a fog." He mentions his memory is not as good. His energy level is poor. Abrahan munoz has shortness of breath on little exertion. Patient also has leg swelling and takes furose mide. His reports him having chest pain while walking that happens almost daily. Zechariah rowley is physically inactive due to his leg weakness and has chest pain. He enjoys reading and w atching TV. There is no palpitations, dizziness or lightheadedness. Patient can sleep on one pillow at night without difficulty breathing. MEDICAL, SURGICAL, AND PERSONAL HISTORY Past Medical, Surgical, Family, and Social History are reviewed in EPIC. 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 allopurinol (ZYLOPRIM) 100 mg tablet Take 100 mg by mouth Daily. amLODIPine (NORVASC) 5 mg tablet TAKE ONE TABLET BY MOUTH DAILY 90 tablet 3 aspirin 325 mg EC tablet Take 325 mg by mouth Daily. B Complex Vitamins (B COMPLEX 1 PO) Take 1 tablet by mouth Daily. cetirizine (ZYRTEC) 10 mg tablet Take 10 mg by mouth Daily. cloNIDine (CATAPRES) 0.1 mg tablet Take 1 tablet by mouth Daily as needed. For systolic blood pressure of 160 or above 30 tablet 5 furosemide (LASIX) 20 mg tablet Take 20 mg by mouth Daily. gabapentin (NEURONTIN) 300 mg capsule Take 300 mg by mouth nightly. isosorbide mononitrate (IMDUR) 30 mg ER tablet Take 30 mg by mouth Daily. Take one in t he morning and somtime takes one in the Evening if chest pain levothyroxine (SYNTHROID) 88 mcg tablet Take 88 mcg by mouth every morning (before nick kfast). lisinopril (PRINIVIL, ZESTRIL) 20 mg tablet Take 1 tablet by mouth 2 times daily. 60 ta blet 0 Magnesium Cl-Calcium Carbonate (SLOW-MAG PO) Take 1 tablet by mouth 2 times daily. nitroglycerin (NITROSTAT) 0.[address] 0.4 mg under the tongue every 5 minute s as needed for Chest pain. omeprazole (PRILOSEC) 40 MG capsule Take 40 mg by mouth every morning (before breakfast ). rosuvastatin (CRESTOR) 20 mg tablet Take 1 tablet by mouth nightly. (Patient not taking : Reported on 07/31/2019) 30 tablet 5 No current facility-administered medications for this visit. ALLERGIES Allergies Allergen Reactions Atorvastatin Other (See Comments) Other Hydrocodone Other (See Comments) "I go into spasms" Oxycodone Other (See Comments) "I go into spasms" Tramadol Other (See Comments) "I go into spasms" Tramadol Caused spasms and pt to be in hospital ROS Review of Systems Constitutional: Positive for malaise/fatigue. Negative for chills, diaphoresis, fever and w eight loss. HENT: Negative for congestion, hearing loss, nosebleeds and tinnitus. Dental Problems = No Eyes: Negative for blurred vision and double vision. Respiratory: Positive for shortness of breath. Cardiovascular: Positive for chest pain and leg swelling. Negative for palpitations. Gastrointestinal: Negative for blood in stool, constipation, diarrhea, nausea and vomiting. Genitourinary: Negative for dysuria, frequency, hematuria and urgency. Musculoskeletal: Negative for back pain, falls, joint pain, myalgias and neck pain. Gait Problems = No Skin: Negative for itching and rash. Neurological: Negative for dizziness, tingling, tremors, speech change, seizures, loss of c onsciousness and weakness. Lightheaded = Yes Endo/Heme/Allergies: Does not bruise/bleed easily. Psychiatric/Behavioral: Negative for memory loss. The patient is not nervous/anxious and do es not have insomnia. OBJECTIVE: PHYSICAL EXAM BP 112/64 | Pulse 59 | Resp 18 | Ht 1.854 m (6' 1") | Wt 104.3 kg (229 lb 15 oz) | BMI 30.34 kg/m Physical Exam Constitutional: He is oriented to person, place, and time. He appears well-developed and we ll-nourished. Male individual, arrives with his , no acute distress. Neck: Normal carotid pulses and no JVD present. Carotid bruit is not present. Cardiovascular: Normal rate, regular rhythm, S1 normal, S2 normal, normal heart sounds and intact distal pulses. PMI is not displaced. Exam reveals no gallop and no friction rub. No murmur heard. Pulses: Carotid pulses are 2+ on the right side and 2+ on the left side. Posterior tibial pulses are 2+ on the right side and 2+ on the left side. Pulmonary/Chest: Effort normal and breath sounds normal. No accessory muscle usage. No resp iratory distress. He has no wheezes. He has no rhonchi. He has no rales. Abdominal: Soft. Normal appearance and normal aorta. He exhibits no abdominal bruit. There is no hepatosplenomegaly. There is no abdominal tenderness. Musculoskeletal: General: Edema (bilateral 2+ leg swelling with chronic static ezcema) present. Neurological: He is alert and oriented to person, place, and time. Gait normal. Skin: Skin is warm and dry. No cyanosis. Nails show no clubbing. Psychiatric: He has a normal mood and affect. His mood appears not anxious. He does not exh ibit a depressed mood. ECG: Sinus bradycardia with 1st degree AV block, RBBB. LAB RESULTS reviewed during visit today primarily from [facility]: LIPID Lab Results Component Value Date CHOL 164 02/28/2015 TRIG 295 (A) 02/28/2015 HDL 29.2 (A) 02/28/2015 LDL 91 09/08/2014 CHOLHDL 5.6 (A) 02/28/2015 CHEMISTRY Lab Results Component Value Date GLU 97 03/11/2018 GLUEX 116 (A) 12/08/2018 NA 139 03/11/2018 NAEX 137 12/08/2018 K 3.4 (L) 03/11/2018 KEX 4.5 12/08/2018 CL 105 03/11/2018 CLEX 104 12/08/2018 CO2 26 03/11/2018 CO2EX 26 12/08/2018 CALCIUM 9.5 03/11/2018 ALKPHOS 50 03/08/2018 AST 20 03/08/2018 ASTEX 19 12/08/2018 ALT 12 03/08/2018 ALTEX 14 12/08/2018 BILITOT 0.9 03/08/2018 CREA 1.29 03/11/2018 BUN 18 03/11/2018 EGFR 52 (A) 02/28/2015 EGFREX 27 12/08/2018 CREEX 2.29 (A) 12/08/2018 HEMATOLOGY Lab Results Component Value Date WBC 7.8 03/10/2018 WBCEX 7.9 12/08/2018 HGB 14.1 03/10/2018 HGBEX 12.9 (A) 12/08/2018 HCT 40.3 03/10/2018 HCTEX 39.0 (A) 12/08/2018 PLT 244 03/10/2018 PLTEX 227 12/08/2018 Most recent primary care provider notes have been requested. Above data and testing is reviewed this visit; testing below is historical data unless othe rwise specified. ASSESSMENT: 1. Coronary artery disease A. Post CABG x3 BAILEY to LAD, arterial graft to OM and SVG to the PDA on 1990. B. Left heart catheterization 03/27/2012 shows left main is very short, almost separate ostia for the LAD and left circumflex artery, LAD is 100% occluded at the ostium an d the proximal, mid and distal LAD are filled with a patent BAILEY to the LAD. All 3 diagonals are absent, left circumflex artery is diffusely diseased in the proximal and mid part, more than 90% lesions, first and second obtuse marginal are tiny with diffuse disease, but the third obtuse marginal is patent with a free IM arterial graft to the third obtuse marginal, RCA proximally 80% to 90% lesion, mid is 100% occluded, then the right PDA is filled with re -opened SVG to the right PDA. The right AV groove artery is normal size with no significant stenosis. It gives 3 small right posterolateral arteries, all small size with no significant stenosis, right dominant circulation. C. Today, his reports him having chest pain while walking that happens almost daily. He has been inactive due to chest pain with exertion. 2. Heart failure with preserved ejection fraction A. Today, patient reports shortness of breath on exertion. He has leg swelling that has no t resolved while taking furosemide. He is in a class II of [place] [employer] functi onal class. There is 2+ bilateral leg swelling on physical examination. 3. Bradycardia, irreversible, asymptomatic A. Echocardiogram 03/09/2018 shows [...] rate in the mid 4 0's. C. 48 hour Holter monitor 03/17/18 shows the predominant rhythm is sinus with HR between 58 to 98 bpm, the average HR was 72 bpm during the 48:03 hour recording, there were occasional PVC's (519 total, mean 10.8/hr) with 11 couplets and no triplets, there were kristin y rare PAC's (155 total, mean 3.2/hr), there were 54 episodes of bradycardia, the longest wa s 27 beats on Saturday 10:19, the minimum rate was 51 bpm on Saturday 00:56, there was no tachyc ardia, there was 1 pause of 2.o seconds on Saturday 00:05, diary was returned, no symptoms wer e reported. D. ECG shows bradycardia, he is asymptomatic. 4. Hypertension A. Today, his blood pressure is in target. 5. Stage IV chronic kidney disease A. eGFR is 27 from 12/08/2018. Will check CMP today. 6. Inactivity A. He remains inactive due to leg weakness and chest pain. 7. Hyperlipidemia A. Patient is not taking statin at this time. 8. Medical non compliance A. had mentioned she fills his pill box, but he doesn't always take his medications. PLAN: 1. Schedule patient for stress test for the work up of chest pain. 2. Check CBC, CMP, BNP and TSH today. 3. Echocardiogram is warranted to assess cardiac structure for work-up of heart failure. 4. Switch furosemide to torsemide 10 mg twice a day to treat leg swelling and heart failure . 5. Check blood pressure x 2 weeks. Check minichem in 1 week. 6. Restart Crestor 20 mg once a day. Patient has history of CAD. Guidelines recommend high -intensity statin. 7. Check LFT and lipid panel in three months. 8. I recommend a therapeutic lifestyle change including walking 30 minutes a day, choosing healthy choices of diet, including DASH diet, weight reduction and 7 hours of high quality s leep a night. 9. Follow-up in 4 to 6 weeks. I, Sissy Mcmullen, am acting as a scribe on behalf of, and in the presence of Callie feliciano MD. I have reviewed and edited this note. Sissy Mcmullen, Home Delivery Driver 07/31/2019 I, Callie Blanco MD, personally performed the services described in this documentation, as scribed in my presence and it is both accurate and complete. Sissy Mcmullen, Med Ass t 07/31/2019 1:59 PM Electronically signed by: Callie Blanco MD [facility] 07/31/2019 Portions of this chart may have been created with [employer] voice recognition software. Occasi onal wrong-word or sound-alike substitutions may have occurred due to the inherent clements itations of voice recognition software. Please read the chart carefully and recognize, using context, where these substitutions have occurred documented in this encounter Plan of Treatment +--------+---------+ + + + | Date | Type | Specialty | Care Team | Description | +--------+---------+ + + + | 02/25/ | Office | Cardiology | Callie Blanco, | | | 2019 | Visit | | [address] | | | | | | [place], | | | | | | [place] [address] | | | | | | [phone] | | | | | | | | +--------+---------+ + + + + +------+--------+ + + | Name | Type | Priori | Associated Diagnoses | Order Schedule | | | | ty | | | + +------+--------+ + + | Basic Metabolic | Lab | Routin | CAD, multiple | Weekly for 2 | | Panel | | e | vessel Congestive | Occurrences starting | | | | | heart failure, | 07/31/2019 until | | | | | unspecified HF | 07/31/2020, 1 | | | | | chronicity, | completed | | | | | unspecified heart | | | | | | failure type (HCC) | | + +------+--------+ + + documented as of this encounter Procedures + +--------+ + + + | Procedure Name | Priori | Date/Time | Associated Diagnosis | Comments | | | ty | | | | + +--------+ + + + | LABS - EXTERNAL SCAN | | 08/24/2019 | | Results for this | | | | 12:00 AM | | procedure are in the | | | | PDT | | results section. | + +--------+ + + + | ECG 12 LEAD | Routin | 07/31/2019 | Symptomatic | Results for this | | | e | 1:47 PM | bradycardia | procedure are in the | | | | PST | | results section. | + +--------+ + + + | LABS - EXTERNAL SCAN | | 12/08/2018 | | Results for this | | | | 12:00 AM | | procedure are in the | | | | PDT | | results section. | + +--------+ + + + documented in this encounter Results NM Nuclear Stress Test (Vasodilator) (08/25/2019 1:07 PM PDT) + +--------+ + + + | Component | Value | Ref Range | Performed | Pathologist | | | | | At | Signature | + +--------+ + + + | BASELINE | 47 | bpm | [facility] | | | HEART RATE | | | | | + +--------+ + + + | BASELINE | 109/66 | mmHg | [facility] | | | BLOOD | | | | | | PRESSURE | | | | | + +--------+ + + + | PEAK HEART | 59 | | [facility] | | | RATE | | | | | + +--------+ + + + | PEAK BLOOD | 115/58 | mmHG | [facility] | | | PRESSURE | | | | | + +--------+ + + + | Target HR | 116 | | [facility] | | + +--------+ + + + | Percent HR | 43 | | [facility] | | + +--------+ + + + | Max | 136 | | [facility] | | | Predicted | | | | | | HR | | | | | + +--------+ + + + | LVEF-SPECT | 50 | % | [facility] | | | NUCLEAR | | | | | | STRESS/VIAB | | | | | | ILITY | | | | | + +--------+ + + + | ST | 0.0 | mm | [facility] | | | Elevation | | | | | | (mm) | | | | | + +--------+ + + + + + | Specimen | + + | | + + + + + | Narrative | Performed At | + + + | 1. | [facility] | | Persantine EKG is negative.2. Abnormal Persantine sestamibi | | | myocardial perfusion imaging study with a medium size, fixed defect of | | | a moderate severity in the inferobasal region. There is also a | | | small sized, reversible defect of a mild severity in the distal | | | anterior wall. Findings suggest a medium size myocardial scar of a | | | mid right coronary territory and a small size moderate ischemia of a | | | distal left anterior descending artery territory. Normal left | | | ventricular size and wall thickness. There is a mild hypokinesis of | | | the distal inferior wall. Overall, left ventricular systolic | | | function is low normal. LVEF by gated SPECT is 50%. | | + + + + +---------+ + + | Performing | Address | City/State/Zipcode | Phone Number | | Organization | | | | + +---------+ + + | [facility] | | | | + +---------+ + + ECHO Complete (08/25/2019 12:06 PM PDT) + +--------+ + + + | Component | Value | Ref Range | Performed | Pathologist | | | | | At | Signature | + +--------+ + + + | Vitals | 185.4 | | [facility] | | | Height | | | | | + +--------+ + + + | Vitals | 103.90 | | [facility] | | | Weight | | | | | + +--------+ + + + | LVIDd | 5.02 | cm | [facility] | | + +--------+ + + + | FS | 27 | % | [facility] | | + +--------+ + + + | LA volume | 109.86 | mL | [facility] | | + +--------+ + + + | Ascending | 3.01 | cm | [facility] | | | aorta | | | | | + +--------+ + + + | Aortic arch | 3.25 | cm | [facility] | | + +--------+ + + + | IVRT | 152.25 | msec | [facility] | | + +--------+ + + + | LVOT peak | 71.96 | cm/s | [facility] | | | jose | | | | | + +--------+ + + + | AV peak jose | 107.68 | cm/s | [facility] | | + +--------+ + + + | AV peak | 4.64 | mmHg | [facility] | | | gradient | | | | | + +--------+ + + + | LA Volume | 48 | mL/m2 | [facility] | | | Index | | | | | + +--------+ + + + | AV LVOT | 2.07 | mmHg | [facility] | | | Peak | | | | | | Gradient | | | | | + +--------+ + + + | TR Peak | 17 | mmHg | [facility] | | | Gradient | | | | | + +--------+ + + + | TR Velocity | 207.76 | cm | [facility] | | + +--------+ + + + | LV | 8.14 | cm | [facility] | | | Diastolic | | | | | | Length 4C | | | | | + +--------+ + + + | LV | 50 | % | [facility] | | | Barron's | | | | | | Biplane EF | | | | | + +--------+ + + + | LV ED | 136.32 | ml | [facility] | | | Volume | | | | | | (Barron's) | | | | | + +--------+ + + + | LV ED | 60 | ml/m2 | [facility] | | | Volume | | | | | | Index | | | | | + +--------+ + + + | LV ES | 61.17 | ml | [facility] | | | Volume | | | | | + +--------+ + + + | MV E' | 5 | cm/s | [facility] | | | Septal | | | | | | Velocity | | | | | + +--------+ + + + | MV | 354.25 | cm/s2 | [facility] | | | Deceleratio | | | | | | n Sullivan | | | | | + +--------+ + + + | MV | 285.18 | msec | [facility] | | | Deceleratio | | | | | | n Time | | | | | + +--------+ + + + | MV E/A | 0.89 | | [facility] | | | Ratio | | | | | + +--------+ + + + | MV Peak | 113.1 | cm/s | [facility] | | | A-Wave | | | | | + +--------+ + + + | MV Peak | 101.03 | cm/s | [facility] | | | E-Wave | | | | | + +--------+ + + + | LA/Aorta | 1.25 | | [facility] | | | Ratio | | | | | + +--------+ + + + | LA Area | 26.32 | cm2 | [facility] | | + +--------+ + + + | MV E/E | 20.21 | | [facility] | | | SEPTAL | | | | | + +--------+ + + + | LV ES | 27 | ml/m2 | [facility] | | | Volume | | | | | | Index | | | | | + +--------+ + + + | Aortic Root | 4 | cm | [facility] | | | Diameter | | | | | + +--------+ + + + | IVS | 1.19 | cm | [facility] | | | Diastolic | | | | | | Thickness | | | | | | MM | | | | | + +--------+ + + + | LVPW | 1.03 | cm | [facility] | | | Diastolic | | | | | | Thickness | | | | | | MM | | | | | + +--------+ + + + | IVS | 1.54 | cm | [facility] | | | Systolic | | | | | | Thickness | | | | | | MM | | | | | + +--------+ + + + | LV Systolic | 3.68 | cm | [facility] | | | Diameter | | | | | | MM | | | | | + +--------+ + + + | LVPW | 1.35 | cm | [facility] | | | Systolic | | | | | | Thickness | | | | | | MM | | | | | + +--------+ + + + | AV Cusp | 2.07 | cm | [facility] | | | Seperation | | | | | | MM | | | | | + +--------+ + + + | LA Systolic | 5 | cm | [facility] | | | Diameter | | | | | | MM | | | | | + +--------+ + + + | TAPSE | 2.1 | cm | [facility] | | + +--------+ + + + | LVEF-TTE | 55 | % | [facility] | | | TRANSTHORAC | | | | | | IC ECHO | | | | | + +--------+ + + + | RA PRESSURE | 3 | mmHg | [facility] | | + +--------+ + + + | RVSP | 20 | mmHg | [facility] | | | Estimated | | | | | + +--------+ + + + + + | Specimen | + + | | + + + + + | Narrative | Performed At | + + + | 1. Mild to | [facility] | | moderate biatrial dilatation.2. Normal left ventricular size with a | | | mild concentric left ventricular hypertrophy. Left ventricular size | | | systolic function is preserved. LVEF is 55%.3. Grade 1 left | | | ventricular diastolic dysfunction.4. Mildly thickened trileaflet | | | aortic valve with adequate opening.5. 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 Mild tricuspid valve regurgitation.7. Normal | | | right-sided pressure.8. Normal IVC with a normal respiratory | | | collapse.9. When compared to echocardiogram on 03/09/2018, no | | | significant changes. | | |9. When compared to echocardiogram on 03/09/2018, no significant changes. | | + + + + +---------+ + + | Performing | Address | City/State/Zipcode | Phone Number | | Organization | | | | + +---------+ + + | [facility] | | | | + +---------+ + + LABS - EXTERNAL SCAN (08/24/2019 12:00 AM PDT) + + + | Narrative | Performed At | + + + | Ordered by an | | | unspecified provider. | | + + + CBC with Differential (07/31/2019 2:51 PM PST) + + + + + + | Component | Value | Ref Range | Performed | Pathologist | | | | | At | Signature | + + + + + + | WBC | 6.7 | 4.0 - 11.0 K/uL | [facility] | | | | | [facility] | | [facility] | [facility] | | | | | | [facility] - | | | | | | LABORATORY | | + + + + + + | RBC | 3.56 (L) | 4.30 - 5.70 | [facility] [...] + + + + | Hematocrit | 34.7 (L) | 40.0 - 51.0 % | [facility] | [facility] | | | | | | C[facility] - | | | | | | LABORATORY | | + + + + + + | MCV | 97.5 | 83.0 - 101.0 fL | [facility] | [facility] | [facility] | [facility] | | | | | | CENTER - | | | | | | LABORATORY | | + + + + + + | MCH | 32.3 | 28.0 - 35.0 pg | [facility] | | | | | [facility] | | | | | | [facility] | | | | | | CENTER - | | | | | | LABORATORY | | + + + + + + | MCHC | 33.1 | 32.0 - 36.0 | [facility] | | | | | g/dL | [facility] | | | | | | [facility] | | | | | | CENTER - | | | | | | LABORATORY | | + + + + + + | RDW-CV | 15.3 (H) | <15.0 % | [facility] | [facility] | [facility] | | [facility] | [facility] | | | | | | CENTER - | | | | | | LABORATORY | | + + + + + + | RDW-SD | 54.3 (H) | 35.1 - 46.3 fL | [facility] | [facility] | [facility] | | [facility] | | | [facility] | | | | | | CENTER - | | | | | | LABORATORY | | + + + + + + | Platelet | 216 | 140 - 440 K/uL | [facility] [...] + + + + | % | 49.7 | 45.0 - 82.0 % | [facility] | | | Neutrophils | | | [facility] | | | | | | [facility] | | | | | | CENTER - | | | | | | LABORATORY | | + + + + + + | % | 28.7 | 20.0 - 45.0 % | [facility] | | | Lymphocytes | | | [facility] | | | | | | [facility]ICAL | | | | | | CENTER - | | | | | | LABORATORY | | + + + + + + | % Monocytes | 11.7 | 4.0 - 12.0 % | [facility] | | | | | [facility] | | | | | | [facility] | | | | | | CENTER - | | | | | | LABORATORY | | + + + + + + | % | 8.6 (H) | 0.0 - 5.0 % | [facility] | | | Eosinophils | | | [facility] | | | | | | [facility]ICAL | | | | | | CENTER - | | | | | | LABORATORY | | + + + + + + | % Basophils | 1.1 (H) | 0.0 - 1.0 % | [facility] | | | | | [facility] | | | | | | [facility] | | | | | | CENTER - | | | | | | LABORATORY | | + + + + + + | % Immature | 0.2 | 0.0 - 0.4 % | [facility] | | | Granulocyte | | | [facility] | | | s | | | MEDICAL | | | | | | CENTER - | | | | | | LABORATORY | | + + + + + + | Absolute | 3.32 | 1.80 - 8.50 | [facility] | | | Neutrophils | | K/uL | [facility] | | | | | | [facility] | | | | | | CENTER - | | | | | | LABORATORY | | + + + + + + | Absolute | 1.91 | 0.60 - 3.20 | [facility] | | | Lymphocytes | | K/uL | [facility] | | | | | | [facility]ICAL | | | | | | CENTER - | | | | | | LABORATORY | | + + + + + + | Absolute | 0.78 | 0.00 - 1.00 | [facility] | | | Monocytes | | K/uL | [facility] | | | | | | [facility]ICAL | | | | | | CENTER - | | | | | | LABORATORY | | + + + + + + | Absolute | 0.57 (H) | 0.00 - 0.40 | [facility] | | | Eosinophils | | K/uL | [facility] | | | | | | [facility]ICAL | | | | | | CENTER - | | | | | | LABORATORY | | + + + + + + | Absolute | 0.07 | 0.00 - 0.10 | [facility] | | | Basophils | | K/uL | [facility] | | | | | | MEDICAL | | | | | | CENTER - | | | | | | LABORATORY | | + + + + + + | Absolute | 0.01 | 0.00 - 0.03 | [facility] | | | Immature | | K/uL | [facility] | | | Granulocyte | | | MEDICAL | | | s | | | CENTER - | | | | | | LABORATORY | | + + + + + + | % nRBC | 0 | 0 - 2 per 100 | [facility] | | | | | WBCs | [facility] | | | | | | MEDICAL | | | | | | CENTER - | | | | | | LABORATORY | | + + + + + + | Absolute | 0.00 | 0.00 - 0.01 | [facility] | | | nRBC | | K/Elva | [facility] | | | | [...] [address] | [place] | [phone] | | [facility] | | [id number] | | | - LABORATORY | | | | + + + + + Basic Metabolic Panel (07/31/2019 2:51 PM PST) + + + + + + | Component | Value | Ref Range | Performed | Pathologist | | | | | At | Signature | + + + + + + | Na | 138 | 136 - 145 | [facility] | | | | | mmol/L | [facility] | | | | | | MEDICAL | | | | | | CENTER - | | | | | | LABORATORY | | + + + + + + | K | 3.4 | 3.4 - 5.1 | [facility] | | | | | mmol/L | [facility] | | | | | | MEDICAL | | | | | | CENTER - | | | | | | LABORATORY | | + + + + + + | Cl | 104 | 98 - 107 mmol/L | [facility] | | | | | | [facility] | | | | | | MEDICAL | | | | | | CENTER - | | | | | | LABORATORY | | + + + + + + | CO2 | 26 | 20 - 31 mmol/L | [facility] | | [...] + | Glucose | 138 (H) | 60 - 106 mg/dL | [facility] | | | | | [facility] | | | | | | MEDICAL | | | | | | CENTER - | | | | | | LABORATORY | | + + + + + + | BUN | 28 (H) | 9 - 23 mg/dL | [facility] | | | | | | [facility] | | | | | | [facility] | | | | | | CENTER - | | | | | | LABORATORY | | + + + + + + | Creatinine | 2.04 (H) | 0.70 - 1.30 | [facility] | | | | | mg/dL | [facility] | | | | | | MEDICAL | | | | | | CENTER - | | | | | | LABORATORY | | + + + + + + | eGFR if not | 31 (L)Comment: | >=60 | [facility] | | | | GLOMERULAR FILTRATION | mL/min/1.73m2 | [facility] | | | [place] | RATE,ESTIMATED | | MEDICAL | | | | mL/min/1.08m4Gveq than | | CENTER - | | [...] + + + + | Calcium | 9.6 | 8.7 - 10.4 | [facility] | | | | | mg/dL | [facility] | | | | | | MEDICAL | | | | | | CENTER - | | | | | | LABORATORY | | + + + + + + | BUN/Creatin | 13.7 | | [facility] | | | ine [...] + | [facility] | [address] | [place], [place] | [phone] | | [facility] | | [address] | | | - LABORATORY | | | | + + + + + TSH (07/31/2019 2:51 PM PST) + +-------+ + + + | Component | Value | Ref Range | Performed | Pathologist | | | | | At | Signature | + +-------+ + + + | TSH | 2.40 | 0.55 - 4.78 | [facility] | | | | | uIU/mL | [facility] | | [...] ST. | [address] | [place], [place] | [phone] | | [facility] | | [address] | | | - LABORATORY | | | | + + + + + B Type Natriuretic Peptide (07/31/2019 2:51 PM PST) + + + + + + | Component | Value | Ref Range | Performed | Pathologist | | | | | At | Signature | + + + + + + | BNP | 203 (H)Comment: New | <100 pg/mL | [facility] | | | | method in use as of | | [facility] | | | | August 06, 2018. Check | | MEDICAL | | | | reference range for | | CENTER - | | | | changes.Some analytes | | LABORATORY | | | | show significant | | | | | | variation from the | | | | | | previous method.It may | | | | | | be necessary to set a | | | | | | new baseline for this | | | | | | analyte. | | | | + + + + + + + + | Specimen | + + | Blood | + + + + + + + | Performing | Address | City/State/Zipcode | Phone Number | | Organization | | | | + + + + + | [facility] | [address] | [place] | [phone] | | [facility] | | [address] | | | - LABORATORY | | | | + + + + + ECG 12 lead (07/31/2019 1:47 PM PST) + + + + + + | Component | Value | Ref Range | Performed | Pathologist | | | | | At | Signature | + + + + + + | VENTRICULAR | 59 | BPM | [facility] | | | RATE EKG | | | | | + + + + + + | ATRIAL RATE | 59 | BPM | [facility] | | + + + + + + | P-R | 496 | ms | [facility] | | | INTERVAL | | | | | + + + + + + | QRS | 150 | ms | [facility] | | | DURATION | | | | | + + + + + + | Q-T | 500 | ms | [facility] | | | INTERVAL | | | | | + + + + + + | Q-T | 495 | ms | [facility] | | | INTERVAL | | | | | | (CORRECTED) | | | | | + + + + + + | P WAVE AXIS | 12 | degrees | [facility] | | + + + + + + | QRS AXIS | 155 | degrees | [facility] | | + + + + + + | T AXIS | 30 | degrees | [facility] | | + + + + + + | INTERPRETAT | Sinus bradycardia with | | [facility] | | | ION TEXT | 1st degree AV blockRight | | | | | | bundle branch blockLeft | | | | | | posterior fascicular | | | | | | block Bifascicular | | | | | | block Abnormal | | | | | | ECGWhen compared with | | | | | | ECG of 14-MAR-2018 | | | | | | 08:50,Left posterior | | | | | | fascicular block is now | | | | | | presentConfirmed by | | | | | | CALLIE BLANCO MD | | | | | | ([id number]) on 07/31/2019 | | | | | | 2:42:33 PM | | | | + + + [...] | | | + +---------+ + + LABS - EXTERNAL SCAN (12/08/2018 12:00 AM PDT) + + + | Narrative | Performed At | + + + | Ordered by an | | | unspecified provider. 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
--- OUTSIDE RECORDS SUMMARY | ~2019-10-02 | XMS | Encounter Summary ---
Demographics + + + | Address | [address] | | | [place] [address] | + + + | Home Phone | | + + + | Preferred Language | Unknown | + + + | Marital Status | | + + + | Congregation Affiliation | 1077 | + + + | Race | Unknown | + + + | Ethnic Group | Unknown | + + + Author + + + | Author | [facility] | | | and [place] | + + + | Organization | [facility] | | | and [...] Team Providers + +------+ + | Care [employer] Name | Role | Phone | + [...] + + | 03/08/ | Hospital | [facility] | Deandre Rocha | Syncope, unspecified | | 2018 - | Encounter | [facility] ICU [address] | DO Demarcus [address] | syncope type | | | | [place], | [address] [place] | (Primary Dx); Acute | | 03/11/ | | [place] [address] | [place] [address] | renal failure | | 2018 | | [phone] | [phone] | superimposed on | | | | | | chronic kidney | | | | | Boni Sanchez MD | disease, unspecified | | | | | [address] | CKD stage, | | | | | [place], [place] | unspecified acute | | | | | [address] | renal failure type | | | [...] might be different fro m the original. [place], [place] HOSPITALIST DISCHARGE SUMMARY Pt. Name/Age/: Wilmer [...] Plan Home New Rx Lisinopril Stopped [facility] for the Lisinopril Dr Escobar Mar 26 [...] this week Contact information: [address] [place] [id number] Hans Blanco MD. Specialty: Cardiology Why: Mar 26 check in at 11 am Contact information: [address] [facility] [id number] Condition: Patient being discharged with condition improved Greater than 30 minutes were spent on discharge and coordination of post-hospital care. (trudy kelley) Electronically signed by: Tyler Mabry MD, 03/11/2018 9:46 [facility] Reference. This is NOT part of the [...] this chart may have been created with [employer] voice recognition software. Occasi onal wrong-word or [...] might be different fro m the original. [place], [place] HOSPITALIST PROGRESS NOTE Patient: Wilmer Pinon : 1935: Age: 82 y.o. MedRec: [id number] PCP: Osbaldo Wood MD Admission date: 03/08/2018 [...] ABG No results for input(s): PHART, PO2ART, ZDA3GBP, VVY0ZLB, BEART, X8NPJNVA in the last 168 h ours. No results for input(s): SPECSOURCE, PHPOCB, PCO2, PO2, HCO3, TCO2, BEART, LNND7GXB in the last 168 hours. Drug of [...] dot micro, for reference below is dot [id number] URSR Microbiology Results (72 hrs) Procedure Component Value Units Date/Time Culture, MRSA [[id number]] (Normal) Collected: 03/08/18 1833 Order Status: Completed [...] meycritical meysign) Tyler Mabry MD 03/11/2018 9:17 [facility] Reference. This is NOT part of the [...] this chart may have been created with [employer] voice recognition software. Occasi onal wrong-word or [...] is in a c lass I of [place] [employer] functional class. There is chronic [...] made to ensure accuracy; however, inadvertent computerized interventional cardiologist errors may be pre sent. Electronically signed by: Hans Blanco MD 03/11/2018 6:36 Alli Ramirez MD - 03/10/2018 8:06 AM PDTForm atting of this note might be different from the original. [facility] Hospitalist Progress Note Wilmer Pinon is [...] as outlined above. Alli Olson 03/10/2018 8:07 [facility] Portions of this chart may have been created with [employer] voice recognition software. Occasi onal wrong-word or sound-alike substitutions may have occurred due to the inherent clements itations of voice recognition software. Please read the chart carefully and recognize, using context, where these substitutions have occurred arker, Alli Almanza MD - 0 03/09/2018 9:47 AM PDT [facility] Hospitalist Progress Note Wilmer Pinon is [...] as outlined above. Alli Olson 03/09/2018 9:47 [facility] Portions of this chart may have been created with [employer] voice recognition software. Occasi onal wrong-word or [...] [place], | | | | | | [place] [address] | | | | | | [phone] | | | | | | | [...] + | [facility] | [address] | [place] | [phone] | | [facility] | | [address] | | | - LABORATORY | | [...] [address] | [place] | [phone] | | [facility] | | [address] | | | - LABORATORY | | [...] mL/min/1.73m2 | [facility] | | | [place] | RATE,ESTIMATED | | MEDICAL | | | | mL/min/1.67f4Ghyf than | | CENTER - | | [...] + | [facility] | [address] | [place] | [phone] | | [facility] | | [address] | | | - LABORATORY | | [...] + | [facility] | [address] | [place] | [phone] | | [facility] | | [address] | | | - LABORATORY | | [...] [address] | [place] | [phone] | | [facility] | | [address] | | | - LABORATORY | | [...] | | | A1c | | | [facility] | | | | | | MEDICAL | | | | | | CENTER - | | | | | | LABORATORY | | + +-------+ + + + | Estimated | 120 | mg/dL | [facility] | | | Average | | | [facility] | | | Glucose | | | [...] ST. | [address] | [place] | [phone] | | [facility] | | [address] | | | - [...] | 1.27 | 0.60 - 1.30 | [facility] | | | | | mg/dL | [facility] | | | | | | MEDICAL | | | | | | CENTER - | | | | | | LABORATORY | | + + + + + + | eGFR if not | 54 (L)Comment: | >=60 | [place] | | | | GLOMERULAR FILTRATION | mL/min/1.73m2 | [facility] | | | [place] | RATE,ESTIMATED | | MEDICAL | | | | mL/min/1.45r0Zday than | | CENTER - | | [...] | [facility] | [address] | [place] | [phone] | | [facility] | | [address] | | | - LABORATORY | | [...] [address] | [place] | [phone] | | [facility] | | [address] | | | - LABORATORY | | [...] [address] | [place] | [phone] | | [facility] | | [address] | | | - LABORATORY | | [...] | | | | | | n [place] | | | | | + +---------+ [...] [address] | [place] | [phone] | | [facility] | | [address] | | | - LABORATORY | | [...] + | [facility] | [address] | [place] | [phone] | | [facility] | | [address] | | | - LABORATORY | | [...] not | 53 (L)Comment: | >=60 | [facility] | | | | GLOMERULAR FILTRATION | mL/min/1.73m2 | [facility] | | | [place] | RATE,ESTIMATED | | MEDICAL | | | | mL/min/1.85f4Xggk than | | CENTER - | | [...] [address] | [place] | [phone] | | [facility] | | [address] | | | - LABORATORY | | [...] | | | | | | [employer] | | | | | [...] [address] | [place] | [phone] | | [facility] | | [address] | | | - LABORATORY | | [...] clinical context for interpretation. | [facility] | | | - LABORATORY | + + + + + + + + | Performing | Address | City/State/Zipcode | Phone Number | | Organization | | | | + + + + + | [facility] | [address] | [place] | [phone] | | [facility] | | [address] | | | - LABORATORY | | [...] | | | Urine | | | [facility] | | | Random | | | [...] + | [facility] | [address] | [place] | [phone] | | [facility] | | [address] | | | - LABORATORY | | [...] - 1.030 | [facility] | | | [place], | | | [facility] | | [...] [address] | [place] | [phone] | | [facility] | | [address] | | | - LABORATORY | | [...] | | | | | | [employer] | | | | | [...] [address] | [place] | [phone] | | [facility] | | [address] | | | - LABORATORY | | [...] + | [facility] | [address] | [place] | [phone] | | [facility] | | [address] | | | - LABORATORY | | [...] + | [facility] | [address] | [place] | [phone] | | [facility] | | [address] | | | - LABORATORY | | [...] [address] | [place] | [phone] | | [facility] | | [address] | | | - LABORATORY | | [...] | | | | | | [employer] | | | | | [...] + | [facility] | [address] | [place] | [phone] | | [facility] | | [address] | | | - LABORATORY | | [...] mL/min/1.73m2 | [facility] | | | [place] | RATE,ESTIMATED | | MEDICAL | | | | mL/min/1.89p8Rsup than | | CENTER - | | [...] | 9.1 | 8.3 - 10.5 | [facility] | | | | | mg/dL [...] [address] | [place] | [phone] | | [facility] | | [address] | | | - LABORATORY | | [...] | [facility] | [address] | [place] | [phone] | | [facility] | | [address] | | | - LABORATORY | | [...] | [employer] | | | [facility] | | | | | | [...] [address] | [place] | [phone] | | [facility] | | [address] | | | - LABORATORY | | [...] [address] | [place] | [phone] | | [facility] | | [address] | | | - LABORATORY | | [...] + | [facility] | [address] | [place] | [phone] | | [facility] | | [address] | | | - LABORATORY | | [...] + | [facility] | [address] | [place] | [phone] | | [facility] | | [address] | | | - LABORATORY | | [...] + | [facility] | [address] | [place] | [phone] | | [facility] | | [address] | | | - LABORATORY | | [...] + | [facility] | [address] | [place] | [phone] | | [facility] | | [address] | | | - LABORATORY | | [...] [address] | [place] | [phone] | | [facility] | | [address] | | | - LABORATORY | | [...] | | | | LAVELLE DUFFY MD ([id number]) | | | | | | on [...] PDT | | | | | ONCE, [place] 03/09/18 at 0630, For 1 | | [...] PDT | | | | | ONCE, [place] 03/09/18 at 1000, For 1 | | [...]
--- OUTSIDE RECORDS SUMMARY | ~2019-10-02 | XMS | Encounter Summary ---
Demographics + + + | Address | [address] | | | [place] [address] | + + + | Home Phone | | + + + | Preferred Language | Unknown | + + + | Marital Status | | + + + | Zoroastrianism Affiliation | 1077 | + + + | Race | Unknown | + + + | Ethnic Group | Unknown | + + + Author + + + | Author | [facility] | | | and [place] | + + + | Organization | [facility] | | | [...] Team Providers + +------+ + | Care Road Freight Conductor Name | Role | Phone | + +------+ + | Osbaldo Wood MD | PCP | | + +------+ + Encounter Details +--------+ + + + + | Date | Type | Department | Care Team | Description | +--------+ + + + + | 06/30/ | Orders Only | [facility] | Mychal Real MD | | | 2014 | | CARDIOLOGY [place] | [address] | | | | | ECHO [address] | [place] [address] | | | | | [place], [place] | [phone] | | | | | [address] | | | | | | [phone] | | | +--------+ + + + [...] | +--------+---------+ + + + | 02/25/ Office | Cardiology | Hans Blanco, | | | 2019 | Visit | | [address] | | | | | | [place], | | | | | | [place] [address] | | | | | | [phone] | | | | | | | | +--------+---------+ + + + documented as of this encounter Procedures + +--------+ + + + | Procedure Name | Priori | Date/Time | Associated Diagnosis | Comments | | | ty | | | | + +--------+ + + + | ECHO COMPLETE | Routin | 06/30/2014 | | Results for this | | | e | 11:36 AM | | procedure are in the | | | | PST | | results section. | + +--------+ + + + documented in this encounter Results ECHO Complete (06/30/2014 11:36 AM PST) + + | Specimen | + + | | + + + + + | Impressions | Performed At | + + + | 1. Overall left ventricular systolic function is normal with, an EF | | | between 55 - 60 %. 2. Pseudonormal LV diastolic filling pattern, | | | consistent with elevated LA pressure and moderate dysfunction (Grade | | | II). 3. The left atrium is markedly enlarged. 4. There is no | | | evidence of pulmonary hypertension. | | + + + + + + | Narrative | Performed At | + + + | Patient Name: ASHLEE PINON Date of : 1935 | | | Performing Physician: Mychal Real MD | | | | | | INDICATIONS Hx of CABG and stenting, SOB, edema | | | CONCLUSIONS 1. Overall left ventricular systolic | | | function is normal with, an EF between 55 - 60 %. 2. Pseudonormal LV | | | diastolic filling pattern, consistent with elevated LA pressure and | | | moderate dysfunction (Grade II). 3. The left atrium is markedly | | | enlarged. 4. There is no evidence of pulmonary hypertension. | | | FINDINGS -------- ECG rhythm: Sinus rhythm. ECG rhythm: Resting | | | bradycardia (HR<60bpm). Study: A 2-dimensional transthoracic | | | echocardiogram with m-mode, spectral and color flow Doppler was | | | perfomed. Study: This was a technically adequate study. Left | | | Ventricle: Overall left ventricular systolic function is normal with, | | | an EF between 55 - 60 %. Left Ventricle: The left ventricle cavity | | | size is normal. Left Ventricle: No regional wall motion | | | abnormalities. Left Ventricle: Sigmoid shaped septum with focal | | | hypertrophy of the basal septum. The remaining wall thickness is | | | normal. Left Ventricle: There is paradoxical/dysynergic septal motion | | | consistent with post-operative status. Left Ventricle: Pseudonormal | | | LV diastolic filling pattern, consistent with elevated LA pressure and | | | moderate dysfunction (Grade II). Right Ventricle: The right | | | ventricle is mildly enlarged measuring between 3.4 - 3.7 cm. Right | | | Ventricle: The right ventricular systolic function is mildly impaired. | | | Left Atrium: The left atrium is markedly enlarged. Right Atrium: | | | The right atrium is mildly enlarged. Aortic Valve: Aortic valve is | | | trileaflet and is mildly thickened. Aortic Valve: There is mild | | | aortic valve sclerosis without stenosis. Aortic Valve: There is no | | | evidence of aortic regurgitation. Mitral Valve: The mitral valve is | | | normal. Mitral Valve: Mild mitral regurgitation is present. | | | Tricuspid Valve: The tricuspid valve appears structurally normal. | | | Tricuspid Valve: Trace tricuspid regurgitation present. Tricuspid | | | Valve: There is no evidence of pulmonary hypertension. Tricuspid | | | Valve: The right ventricular systolic pressure (pulmonary artery | | | systolic pressure), as measured by Doppler, is 26.86mmHg. Pulmonic | | | Valve: The pulmonic valve is normal. Pulmonic Valve: Trace pulmonic | | | regurgitation. Pericardium: There is no pericardial effusion. | | | IVC/Hepatic Veins: The IVC is mildly enlarged and collapses >50% with | | | sniff, consistent with central venous pressures of 10 mmHg. Pulmonary | | | Veins: The flow patterns, measured by Doppler, appear normal. | | | MEASUREMENTS Ao asc: 3.23 cm IVC: 2.70 cm LA | | | Major: 5.80 cm EDV(Teich): 157.67 ml IVSd: 1.04 cm LVIDd: | | | 5.66 cm LVPWd: 0.87 cm LVOT Area: 4.58 cm2 LVOT Diam: | | | 2.41 cm %FS: 33.93 % EF(Teich): 62.13 % ESV(Teich): 59.69 | | | ml LVIDs: 3.74 cm SV(Teich): 97.97 ml RA Major: 5.92 cm | | | RVIDd: 3.52 cm LVEF MOD A2C: 53.25 % SV MOD A2C: 40.10 ml | | | LVEF MOD A4C: 61.37 % SV MOD A4C: 57.21 ml EF Biplane: | | | 58.39 % LVEDV MOD BP: 85.41 ml LVESV MOD BP: 35.53 ml LVEDV | | | MOD A2C: 75.30 ml LVLd A2C: 8.21 cm LVEDV MOD A4C: 93.21 ml | | | LVLd A4C: 8.61 cm LVESV MOD A2C: 35.20 ml LVLs A2C: 6.80 | | | cm LVESV MOD A4C: 36.00 ml LVLs A4C: 6.78 cm LAESV(A-L): | | | 82.10 ml LAESV Index (A-L): 34.93 ml/m2 LAAs A2C: 21.19 cm2 | | | LAESV A-L A2C: 72.47 ml LALs A2C: 5.26 cm LAAs A4C: 24.01 | | | cm2 LAESV A-L A4C: 81.57 ml LALs A4C: 5.99 cm LVEF_4Ch_Q: | | | 60.64 % Ao Diam: 3.38 cm LA Diam: 5.07 cm LA/Ao: 1.5 AV | | | maxP.14 mmHg AV meanP.22 mmHg AV Vmax: 1.23 m/s AV | | | Vmean: 0.84 m/s AV VTI: 26.28 cm FREDERICK Vmax: 3.61 cm2 FREDERICK | | | (VTI): 3.56 cm2 LVOT maxP.82 mmHg LVOT meanP.05 | | | mmHg LVSI Dopp: 39.92 ml/m2 LVSV Dopp: 93.83 ml LVOT Vmax: | | | 0.97 m/s LVOT Vmean: 0.67 m/s LVOT VTI: 20.47 cm IVRT: | | | 83.04 ms MV A Angel: 0.95 m/s MV Dec Butts: 5.67 m/s2 MV DecT: | | | 173.51 ms MV E Angel: 0.97 m/s MV E/A Ratio: 1.02 MV PHT: | | | 50.31 ms MVA By PHT: 4.37 cm2 Septal e': 0.05 m/s Septal | | | E/e': 18.83 Lateral e': 0.09 m/s Lateral E/e': 10.48 RAP: | | | 10 mmHg RVSP: 26.85 mmHg TR maxP.85 mmHg TR Vmax: | | | 2.05 m/s Folder And Notcher: ELI Authenticated by: Reno Zamarripa Report | | | Date/Time: -- [id number] | | + + + + + | Procedure Note | + + | [address] Conversion - 01/29/2019 11:42 PM PDT Patient Name: Narda PINON of | | : 1935 Performing Physician: Mychal Real | | MD INDICATIONS H | | x of CABG and stenting, SOB, edema CONCLUSIONS 1. Overall left ventricular | | systolic function is normal with, an EF between 55 - 60 %.2. Pseudonormal LV diastolic | | filling pattern, consistent with elevated LA pressure and moderate dysfunction (Grade | | II).3. The left atrium is markedly enlarged.4. There is no evidence of pulmonary | | hypertension. FINDINGS--------ECG rhythm: Sinus rhythm.ECG rhythm: Resting bradycardia | | (HR<60bpm).Study: A 2-dimensional transthoracic echocardiogram with m-mode, spectral and | | color flow Doppler was perfomed.Study: This was a technically adequate study.Left | | Ventricle: Overall left ventricular systolic function is normal with, an EF between 55 - | | 60 %.Left Ventricle: The left ventricle cavity size is normal.Left Ventricle: No | | regional wall motion abnormalities.Left Ventricle: Sigmoid shaped septum with focal | | hypertrophy of the basal septum. The remaining wall thickness is normal.Left Ventricle: | | There is paradoxical/dysynergic septal motion consistent with post-operative status.Left | | Ventricle: Pseudonormal LV diastolic filling pattern, consistent with elevated LA | | pressure and moderate dysfunction (Grade II).Right Ventricle: The right ventricle is | | mildly enlarged measuring between 3.4 - 3.7 cm.Right Ventricle: The right ventricular | | systolic function is mildly impaired.Left Atrium: The left atrium is markedly | | enlarged.Right Atrium: The right atrium is mildly enlarged.Aortic Valve: Aortic valve is | | trileaflet and is mildly thickened.Aortic Valve: There is mild aortic valve sclerosis | | without stenosis.Aortic Valve: There is no evidence of aortic regurgitation.Mitral | | Valve: The mitral valve is normal.Mitral Valve: Mild mitral regurgitation is | | present.Tricuspid Valve: The tricuspid valve appears structurally normal.Tricuspid | | Valve: Trace tricuspid regurgitation present.Tricuspid Valve: There is no evidence of | | pulmonary hypertension.Tricuspid Valve: The right ventricular systolic pressure | | (pulmonary artery systolic pressure), as measured by Doppler, is 26.86mmHg.Pulmonic | | Valve: The pulmonic valve is normal.Pulmonic Valve: Trace pulmonic | | regurgitation.Pericardium: There is no pericardial effusion.IVC/Hepatic Veins: The IVC | | is mildly enlarged and collapses >50% with sniff, consistent with central venous | | pressures of 10 mmHg.Pulmonary Veins: The flow patterns, measured by Doppler, appear | | normal. MEASUREMENTS Ao asc: 3.23 cmIVC: 2.70 cmLA Major: 5.80 | | cmEDV(Teich): 157.67 mlIVSd: 1.04 cmLVIDd: 5.66 cmLVPWd: 0.87 cmLVOT Area: | | 4.58 [id number] Diam: 2.41 cm%FS: 33.93 %EF(Teich): 62.13 %ESV(Teich): 59.69 | | mlLVIDs: 3.74 cmSV(Teich): 97.97 mlRA Major: 5.92 cmRVIDd: 3.52 cmLVEF MOD A2C: | | 53.25 %SV MOD A2C: 40.10 mlLVEF MOD A4C: 61.37 %SV MOD A4C: 57.21 mlEF Biplane: | | 58.39 %LVEDV MOD BP: 85.41 mlLVESV MOD BP: 35.53 mlLVEDV MOD A2C: 75.30 mlLVLd | | A2C: 8.21 cmLVEDV MOD A4C: 93.21 mlLVLd A4C: 8.61 cmLVESV MOD A2C: 35.20 mlLVLs | | A2C: 6.80 cmLVESV MOD A4C: 36.00 mlLVLs A4C: 6.78 cmLAESV(A-L): 82.10 mlLAESV | | Index (A-L): 34.93 ml/m2LAAs A2C: 21.19 [id number] A-L A2C: 72.47 mlLALs A2C: 5.26 | | cmLAAs A4C: 24.01 [id number] A-L A4C: 81.57 mlLALs A4C: 5.99 cmLVEF_4Ch_Q: 60.64 | | %Ao Diam: 3.38 cmLA Diam: 5.07 cmLA/Ao: 1.5AV maxP.14 mmHgAV meanP.22 | | mmHgAV Vmax: 1.23 m/Alex Vmean: 0.84 m/Alex VTI: 26.28 cmAVA Vmax: 3.61 cm2AVA | | (VTI): 3.56 [id number] maxP.82 mmHgLVOT meanP.05 mmHgLVSI Dopp: 39.92 | | ml/m2LVSV Dopp: 93.83 mlLVOT Vmax: 0.97 m/sLVOT Vmean: 0.67 m/sLVOT VTI: 20.47 | | cmIVRT: 83.04 msMV A Angel: 0.95 m/sMV Dec Butts: 5.67 m/s2MV DecT: 173.51 msMV E | | Angel: 0.97 m/sMV E/A Ratio: 1.02MV PHT: 50.31 msMVA By PHT: 4.37 [id number] e': | | 0.05 m/sSeptal E/e': 18.83Lateral e': 0.09 m/sLateral E/e': 10.48RAP: 10 | | mmHgRVSP: 26.85 mmHgTR maxP.85 mmHgTR Vmax: 2.05 m/s Folder And Notcher: | | DHAuthenticated by: Reno Zhu Date/Time: -[id number]:44 IMPRESSION: | | 1. Overall left ventricular systolic function is normal with, an EF between 55 - 60 %.2. | | Pseudonormal LV diastolic filling pattern, consistent with elevated LA pressure and | | moderate dysfunction (Grade II).3. The left atrium is markedly enlarged.4. There is no | | evidence of pulmonary hypertension. | |LA Major: 5.80 cm | |EDV(Teich): 157.67 ml | |IVSd: 1.04 cm | |LVIDd: 5.66 cm | |LVPWd: 0.87 cm | |LVOT Area: 4.58 cm2 | |LVOT Diam: 2.41 cm | |%FS: 33.93 % | |EF(Teich): 62.13 % | |ESV(Teich): 59.69 ml | |LVIDs: 3.74 cm | |SV(Teich): 97.97 ml | |RA Major: 5.92 cm | |RVIDd: 3.52 cm | |LVEF MOD A2C: 53.25 % | |SV MOD A2C: 40.10 ml | |LVEF MOD A4C: 61.37 % | |SV MOD A4C: 57.21 ml | |EF Biplane: 58.39 % | |LVEDV MOD BP: 85.41 ml | |LVESV MOD BP: 35.53 ml | |LVEDV MOD A2C: 75.30 ml | |LVLd A2C: 8.21 cm | |LVEDV MOD A4C: 93.21 ml | |LVLd A4C: 8.61 cm | |LVESV MOD A2C: 35.20 ml | |LVLs A2C: 6.80 cm | |LVESV MOD A4C: 36.00 ml | |LVLs A4C: 6.78 cm | |LAESV(A-L): 82.10 ml | |LAESV Index (A-L): 34.93 ml/m2 | |LAAs A2C: 21.19 cm2 | |LAESV A-L A2C: 72.47 ml | |LALs A2C: 5.26 cm | |LAAs A4C: 24.01 cm2 | |LAESV A-L A4C: 81.57 ml | |LALs A4C: 5.99 cm | |LVEF_4Ch_Q: 60.64 % | |Ao Diam: 3.38 cm | |LA Diam: 5.07 cm | |LA/Ao: 1.5 | |AV maxP.14 mmHg | |AV meanP.22 mmHg | |AV Vmax: 1.23 m/s | |AV Vmean: 0.84 m/s | |AV VTI: 26.28 cm | |FREDERICK Vmax: 3.61 cm2 | |FREDERICK (VTI): 3.56 cm2 | |LVOT maxP.82 mmHg | |LVOT meanP.05 mmHg | |LVSI Dopp: 39.92 ml/m2 | |LVSV Dopp: 93.83 ml | |LVOT Vmax: 0.97 m/s | |LVOT Vmean: 0.67 m/s | |LVOT VTI: 20.47 cm | |IVRT: 83.04 ms | |MV A Angel: 0.95 m/s | |MV Dec Butts: 5.67 m/s2 | |MV DecT: 173.51 ms | |MV E Angel: 0.97 m/s | |MV E/A Ratio: 1.02 | |MV PHT: 50.31 ms | |MVA By PHT: 4.37 cm2 | |Septal e': 0.05 m/s | |Septal E/e': 18.83 | |Lateral e': 0.09 m/s | |Lateral E/e': 10.48 | |RAP: 10 mmHg | |RVSP: 26.85 mmHg | |TR maxP.85 mmHg | |TR Vmax: 2.05 m/s | | | |Folder And Notcher: ELI | |Authenticated by: Reno Zamarripa | |Report Date/Time: -- [id number]:49:44 | | | |IMPRESSION: | |1. Overall left ventricular systolic function is normal with, an EF between 55 - 60 %. | |2. Pseudonormal LV diastolic filling pattern, consistent with elevated LA pressure and mode rate dysfunction (Grade II). | |3. The left atrium is markedly enlarged. | |4. There is no evidence of pulmonary hypertension. | + + documented in this encounter Visit Diagnoses Not on filedocumented in this encounter"
--- OUTSIDE RECORDS SUMMARY | ~2019-10-02 | XMS | Encounter Summary ---
Demographics + + + | Address | [address] | | | [place] [address] | + + + | Home Phone | | + + + | Preferred Language | Unknown | + + + | Marital Status | | + + + | Muslim Affiliation | 1077 | + + + | Race | Unknown | + + + | Ethnic Group | Unknown | + + + Author + + + | Author | [facility] | | | and [place] | + + + | Organization | [facility] | | | and [place] | + [...] Team Providers + +------+ + | Care Edger Automatic Name | Role | Phone | + [...] multiple | [address] | | | | | vessel | [address] | [place], | | | | | Ischemic | [place], | [place] | | | | | cardiomyopat | [place] [address] | [address] | | | | | hy | Phone: | Phone: | | | | | Congestive | [phone] | [phone] | | | | | heart | Fax: | Fax: | | | | | failure, | [phone] | [phone] | | | | | unspecified | [...] CAD, | MD Callie | [address] | | | | | multiple | [address] | [place], | | | | | vessel | [address] | [place] | | | | | Ischemic | [place], | [address] | | | | | cardiomyopat | [place] [address] | Phone: | | | | | hy | Phone: | [phone] | | | | | Congestive | [phone] | Fax: | | | | | heart | Fax: | [phone] | | | | | failure, | [phone] | | | | | | unspecified | | | | | | | HF | | | | | | | chronicity, | | | | | | | unspecified | | | | | | | heart | | | | | | | failure type | | | | | | | ([facility]) | | | | | | [...] | | | | rest ([facility]) | [address] | [address] [place] [address] | | | | | Procedures | [address] | [address] | | | | | FUP - LAST | [place], | [place], | | | | | SEEN | [place] [address] | [place] [address] | | | | | 04-11-2018 | Phone: | Phone: | | | | | [employer] | [phone] | [phone] | | | | | | Fax: | Fax: | | | | | | [phone] | [phone] | +--------+--------+ + + + + Encounter Details +--------+---------+ + + + | Date | Type | Department | Care Team | Description | +--------+---------+ + + + | 07/31/ | Office | [facility] | Callie Blanco, | Symptomatic | | 2020 | Visit | CARDIOLOGY [address] | bradycardia (Primary | | | | [address] [place], | 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 Check blood pressure and pulse twice daily [...] RESULTS reviewed during visit today primarily from [facility]: LIPID Lab Results Component Value Date [...] He is in a class II of [place] [employer] functi onal class. There is [...] reviewed and edited this note. Sissy Mcmullen, Window Air Conditioner Installer 07/31/2019 I, Callie Blanco MD, personally performed the services described in this documentation, as scribed in my presence and it is both accurate and complete. Sissy Mcmullen, Med Ass t 07/31/2019 1:59 PM Electronically signed by: Callie Blanco MD [facility] 07/31/2019 Portions of this chart may have been created with [employer] voice recognition software. Occasi onal wrong-word or [...] | 2019 | Visit | | [address] | | | | | | [place], | | | | | | [place] [address] | | | | | | [phone] | | | | | | | [...] | | | | | | n [place] | | | | | + +--------+ [...] [address] | [facility] | [phone] | | [facility] | | [address] | | | - LABORATORY | | [...] 2.04 (H) | 0.70 - 1.30 | [facility] | | | | | mg/dL | [facility] | | | | | | [facility] | | | | | | CENTER - | | | | | | LABORATORY | | + + + + + + | eGFR if not | 31 (L)Comment: | >=60 | [facility] | | | | GLOMERULAR FILTRATION | mL/min/1.73m2 | [facility] | | | [facility]SH | RATE,ESTIMATED | | MEDICAL | | | | mL/min/1.63w7Qqbr than | | CENTER - | | [...] + | [facility] | [address] | [place], [place] | [phone] | | [facility] | | [address] | | | - LABORATORY | | [...] ST. | [address] | [place], [place] | [phone] | | [facility] | | [address] | | | - LABORATORY | | [...] [address] | [facility] | [phone] | | [facility] | | [address] | | | - LABORATORY | | [...] MD | | | | | | ([id number]) on 07/31/2019 | | | | | [...] Coronary atherosclerosis of unspecified type of vessel, [place] | | or graft | + + [...]
--- OUTSIDE RECORDS SUMMARY | ~2019-10-02 | XMS | Encounter Summary ---
Demographics + + + | Address | [address] | | | [place] [address] | + + + | Home Phone | | + + + | Preferred Language | Unknown | + + + | Marital Status | | + + + | Methodist Affiliation | 1077 | + + + | Race | Unknown | + + + | Ethnic Group | Unknown | + + + Author + + + | Author | [facility] | | | and [place] | + + + | Organization | [facility] | | | [...] Team Providers + +------+ + | Care Underwriting Director Name | Role | Phone | + [...] | | | | | | | MS LASER | | | | | | [...] PARK | Crescencio Govea | | | 2014 | Event | MED [facility]TRA OP | MD Nitin [address] | | | | | [address] | [facility] | | | | | [facility] | [address] | | | | | [address] | [phone] | | | | | [phone] | | | +--------+ + + + [...] | 1 | an rony now | PACU | | | 3 [...] ONLY] | expectations; 07/30/14; 1545 | Carolina Jiang RN | Ashlyn Benitez RN | | [...] [place], | | | | | | [place] [address] | | | | | | [phone] | | | | | | | [...]
--- OUTSIDE RECORDS SUMMARY | ~2019-10-02 | XMS | Encounter Summary ---
Demographics + + + | Address | [address] | | | [place] [address] | + + + | Home Phone | | + + + | Preferred Language | Unknown | + + + | Marital Status | Single | + + + | Tenriism Affiliation | UNK | + + + | Race | Unknown | + + + | Ethnic Group | Other Race | + + + Author + + + | Author | [facility] | + + + | Organization | [facility] | + + + | Address | Unknown | + + + | Phone | Unavailable | + + + Support + + +---------+ + | Name | Relationship | Address | Phone | + + +---------+ + | None None | ECON | Unknown | Unavailable | + + +---------+ + Care Team Providers + +------+ + | Care Protection Analyst Name | Role | Phone | + +------+ + PCP | Unavailable | + +------+ + Encounter Details +--------+ + + + + | Date | Type | Department | Care Team | Description | +--------+ + + + + | 03/04/ | Ancillary | [facility] | | | | 2005 | Registratio | Practice [address] | | | | | n | [facility], | | | | | | [place] [address] | | | | | | [phone] | | | +--------+ + + + [...] as of this encounter Plan of Treatment Not on filedocumented as of this encounter Visit Diagnoses Not on filedocumented in this encounter"
--- OUTSIDE RECORDS SUMMARY | ~2019-10-02 | XMS | Clinical Summary ---
Demographics + + + | Address | [address] | | | [place] [address] | + + + | Home Phone | | + + + | Preferred Language | Unknown | + + + | Marital Status | | + + + | Jewish Affiliation | Unknown | + + + | Race | Unknown | + + + | Ethnic Group | Unknown | + + + Author + + + | Author | [facility] (Historical as of | | | 01-24-19) | + + + | Organization | [facility] (Historical as of | | | 01-24-19) | + + + | Address | Unknown | + + + | Phone | Unavailable | + + + Support + + + + + | Name | Relationship | Address | Phone | + + + + + | Rhona Zaman | ECON | [address] | | | | | [place] | | | | | [phone] | | + + + + + Care Team Providers + +------+ + | Care Linesperson Name | Role | Phone | + +------+ + | Gerson De La Rosa MD | PP | | + +------+ + Allergies + + + + + + | Active Allergy | Reactions | Severity | Noted | Comments | | | | | Date | | + + + + + + | Atorvastatin | Other (See Comments) | Medium | 11/11/19 | Other | | | | | 13 | | + + + + + + | Hydrocodone-Acetamin | Other (See Comments) | Medium | 03/27/20 | spasms | | ophen | | | 12 | | + + + + + + | Oxycodone | Other (See Comments) | Medium | 07/16/19 | Spasms | | | | | 13 | | + + + + + + | Tramadol | Other (See Comments) | Medium | 03/27/20 | spasms | | | | | 12 | | + + + + + + Current Medications + + +--------+---------+------+------+-------+ | Prescription | Sig. | Disp. | Refills | Star | End | Statu | | | | | | t | Date | s | | | | | | Date | | | + + +--------+---------+------+------+-------+ | allopurinol | Take 300 mg by mouth | | | | | Activ | | (ZYLOPRIM) 300 MG | daily. | | | | | e | | tablet | | | | | | | + + +--------+---------+------+------+-------+ | isosorbide | Take 30 mg by mouth | | | | | Activ | | dinitrate (ISORDIL) | 2 (two) times daily. | | | | | e | | 30 MG tablet | | | | | | | + + +--------+---------+------+------+-------+ | B Complex-C (SUPER | Take 1 tablet by | | | | | Activ | | B COMPLEX PO) | mouth. | | | | | e | + + +--------+---------+------+------+-------+ | levothyroxine | Take 75 mcg by mouth | | | | | Activ | | (SYNTHROID, | daily. | | | | | e | | LEVOTHROID) 75 MCG | | | | | | | | tablet | | | | | | | + + +--------+---------+------+------+-------+ | Pramipexole | Take 15 mg by mouth | | | | | Activ | | Dihydrochloride | as needed. | | | | | e | | (MIRAPEX PO) | | | | | | | + + +--------+---------+------+------+-------+ | Cholecalciferol | Take 2,000 Units by | | | | | Activ | | (VITAMIN D-3 PO) | mouth. | | | | | e | + + +--------+---------+------+------+-------+ | furosemide (LASIX) | Take 1 tablet by | 180 | 3 | 01/0 | | Activ | | 40 MG tablet | mouth 2 (two) times | tablet | | 3/20 | | e | | | daily. | | | 14 | | | + + +--------+---------+------+------+-------+ | aspirin 81 MG EC | Take 81 mg by mouth | | | | | Activ | | tablet | daily with | | | | | e | | | breakfast. | | | | | | + + +--------+---------+------+------+-------+ | omeprazole | Take 40 mg by mouth | | | | | Activ | | (PRILOSEC) 20 MG | every morning before | | | | | e | | capsule | breakfast. | | | | | | + + +--------+---------+------+------+-------+ | cetirizine | Take 10 mg by mouth | | | | | Activ | | (ZYRTEC) 10 MG | daily. | | | | | e | | tablet | | | | | | | + + +--------+---------+------+------+-------+ | Potassium | Take 500 mg by mouth | | | | | Activ | | Gluconate 550 MG | 2 (two) times | | | | | e | | TABS | daily. | | | | | | + + +--------+---------+------+------+-------+ | carvedilol (COREG) | Take 1 tablet by | 180 | 0 | 01/2 | | Activ | | 25 MG tablet | mouth 2 (two) times | tablet | | 0/20 | | e | | | daily. | | | 15 | | | + + +--------+---------+------+------+-------+ | HYDROmorphone | Take 2 mg by mouth | | | | | Activ | | (DILAUDID) 2 MG | every 4 (four) hours | | | | | e | | tablet | as needed for Pain. | | | | | | + + +--------+---------+------+------+-------+ | Magnesium 400 MG | Take 1 tablet by | | | | | Activ | | CAPS | mouth 2 (two) times | | | | | e | | | daily. | | | | | | + + +--------+---------+------+------+-------+ Active Problems + + + | Problem | Noted Date | + + + | Skin lesion of face | 03/09/2015 | + + + | Cardiomyopathy (HCC) | 10/12/2014 | + + + | Congestive heart disease | 07/19/2014 | + + + | Shortness of breath | 06/29/2014 | + + + | Edema | 06/29/2014 | + + + | Hypomagnesemia | 01/12/2013 | + + + | CKD (chronic kidney disease), stage III | 11/10/2012 | + + + | Diabetes mellitus (HCC) | 11/10/2012 | + + + | Essential hypertension, benign | 11/10/2012 | + + + | Gout | 11/10/2012 | + + + | Edema of lower extremity | 11/10/2012 | + + + | CAD (coronary artery disease) | 11/10/2012 | + + + + + | Overview: S/P CABG's, PCI's | + + + + + | Hypothyroidism | 11/10/2012 | + + + | Dyslipidemia | 11/10/2012 | + + + | RLS (restless legs syndrome) | 11/10/2012 | + + + | GERD (gastroesophageal reflux disease) | 11/10/2012 | + + + | Osteoarthritis | 11/10/2012 | + + + | Stroke | 07/16/2012 | + + + Family History + + +------+ + | Medical History | Relation | Name | Comments | + + +------+ + | Heart disease | Father | | | + + +------+ + + + + + + | Relation | Name | Status | Comments | + + + + + | Father | | | | + + + + + | Mother | dementia | | | + + + + + Social History + [...] + +---------+ + | Alcohol Use | Drinks/We | oz/Week | Comments | | | ek | | | + + +---------+ + | Yes | | | every few months | + + +---------+ + + + + | Sex Assigned at | Date Recorded | | | | + + + | Not on file | | + + + Last Filed Vital Signs + + + + | Vital Sign | Reading | Time Taken | + + + + | Blood Pressure | 128/66 | 03/09/2015 2:28 PM PDT | + + + + | Pulse | 72 | 03/09/2015 2:28 PM PDT | + + + + | Temperature | 36.4 C (97.6 F) | 03/09/2015 2:28 PM PDT | + + + + | Respiratory Rate | 22 | 10/12/2014 2:17 PM PDT | + + + + | Oxygen Saturation | 97% | 03/09/2015 2:28 PM PDT | + + + + | Inhaled Oxygen | - | - | | Concentration | | | + + + + | Weight | 112.5 kg (248 lb) | 03/09/2015 2:28 PM PDT | + + + + | Height | 185.4 cm (6' 1") | 03/09/2015 2:28 PM PDT | + + + + | Body Mass Index | 32.72 | 03/09/2015 2:28 PM PDT | + + + + Plan of Treatment + + + + + | Health Maintenance | Due Date | Last Done | Comments | + + + + + | Vaccine: | | | | | Dtap/Tdap/Td (1 - | 4 | | | | Tdap) | | | | + + + + + | Vaccine: Zoster (1 | | | | | of 2) | 5 | | | + + + + + | Vaccine: | | | | | Pneumococcal 65+ | 0 | | | | Low/Medium Risk (1 | | | | | of 2 - PCV13) | | | | + + + + + | Vaccine: Influenza | | | | | (Season Ended) | 0 | | | + + + + + Results Not on filefrom Last 3 Months Insurance + +--------+ +--------+-------+---------+ | Payer | Benefi | Subscriber | Type | Phone | Address | | | t Plan | ID | | | | | | / | | | | | | | Group | | | | | + +--------+ +--------+-------+---------+ | MA - [employer]MIERC[employer] | MA-FAM | [id number] | Medica | | | | FAMILY | [place] | | re | | | | | CARE | | | | | + +--------+ +--------+-------+---------+ + +--------+ +--------+ + + | Guarantor Name | Accoun | Relation to | Date | Phone | Billing Address | | | t Type | Patient | of | | | | | | | | | | + +--------+ +--------+ + + | ASHLEE ZAMAN | Person | Self [birth year] Home: | [address] | | | al/Fam | | 1936 | [phone] | [place], [place] | | | [place] | | | [phone] | [phone] | + +--------+ +--------+ + +
--- OUTSIDE RECORDS SUMMARY | ~2019-10-02 | XMS | Encounter Summary ---
Demographics + + + | Address | [address] | | | [place] [address] | + + + | Home Phone | | + + + | Preferred Language | Unknown | + + + | Marital Status | | + + + | Uatsdin Affiliation | [phone] | + + + | Race | Unknown | + + + | Ethnic Group | Unknown | + + + Author + + + | Author | [facility] | | | and [place] | + + + | Organization | [facility] | | | [...] Team Providers + +------+ + | Care Prison Guard Supervisor Name | Role | Phone | + +------+ + | Osbaldo Wood MD | PCP | | + +------+ + Reason for Visit + + + | Reason | Comments | + + + | Bradycardia | | + + + | Follow-up | | + + + Evaluate & Treat (Routine) +--------+--------+ + + + + | Status | Reason | Specialty | Diagnoses / | Referred By | Referred To | | | | | Procedures | Contact | Contact | +--------+--------+ + + + + | Closed | | Cardiology | Diagnoses | [place] | [facility] | Osbaldo Leyva, | MD Callie | | | | | [facility] | [address] | [address] [place] [address] | | | | | Procedures | [facility] | [address] | | | | | [facility] | [place], | [place], | | | | | - [place] | [place] [address] | [place] [address] | | | | | CONSULTED IN | Phone: | Phone: | | | | | HOSPITAL | [phone] | [phone] | | | | | | Fax: | Fax: | | | | | | [phone] | [phone] | +--------+--------+ + + + + Encounter Details +--------+---------+ + + + | Date | Type | Department | Care Team | Description | +--------+---------+ + + + | 03/14/ | Office | [facility] | ShawncarlasamDarleenjustyna, | Symptomatic | | 2018 | Visit | CARDIOLOGY [address] | MD [address] | bradycardia (Primary | | | | [place] [place], | [place], | Dx); CAD, multiple | | | | [place] [address] | [place] [address] | vessel | | | | [phone] | [phone] | | | | | | | [...] + + + | Blood Pressure | 132/86 | 03/14/2018 8:41 AM | | | | | PDT | | + + + + + | Pulse | 71 | 03/14/2018 8:41 AM | | | | | PDT | | + + + + + | Temperature | - | - | | + + + + + | Respiratory Rate | 16 | 03/14/2018 8:41 AM | | | | | PDT | | + + + + + | Oxygen Saturation | - | - | | + + + + + | Inhaled Oxygen | - | - | | | Concentration | | | | + + + + + | Weight | 91 kg (200 lb 9.9 | 03/14/2018 8:41 AM | | | | oz) | PDT | | + + + + + | Height | 185.4 cm (6' 1") | 03/14/2018 8:41 AM | | | | | PDT | | + + + + + | Body Mass Index | 26.47 | 03/14/2018 8:41 AM | | | | | PDT [...] Instructions Patient Instructions Nesha Alvarado RN - 03/14/2018 9:00 AM PDTStop taking Lovastatin. Begin taking Rosuvastatin 20 mg daily in the evening. Blood test: Fasting- 12 hours prior to test, no food, no caffiene, water is ok Date Due: 3 months Where to go for labs: [facility]- [address] [facility] [facility] Holter Monitor : 48 hour Date: Check-In Time: Where to Check in: Follow up appointment: 4 weeks Provider: Callie Blanco MD Date: Check-In Time: documented in this encounter Progress Notes Callie Blanco MD - 03/14/2018 9:00 AM PDTFormatting of this note might be different f rom the original. PATIENT NAME: Wilmer Pinon : 1935: AGE: 82 y.o. REFERRED BY: Osbaldo Wood PRIMARY CARE: Osbaldo Wood MD NEW PATIENT OFFICE VISIT Date of Service: 03/14/18 HISTORY OF PRESENT ILLNESS: Wilmer Pinon is a 82 y.o. male with a history of asymptomatic irreversible bradycardia , coronary artery disease, post CABG 1990. stage III chronic kidney disease, essential hyper tension and mixed hyperlipidemia. He is being seen today for hospital follow up for syncope and bradycardia. Patient was in his usual state of health until 03/08/2018 he was admitted to [facility] for syncope and bradycardia seen by Tyler Mabry MD. He was started on lisinopril 2 0 mg twice a day. His carvedilol and potassium was discontinued. Today, patient reports feeling occasional dizziness the past few days, however, he did not feel his pulses. Patient is physically inactive. There is no chest pain or chest discomfort both at rest and on exertion. Patient denies breathlessness or palpitations. There is no an kle or leg swelling. Patient can sleep on one pillow at night without difficulty breathing. CURRENT PROBLEMS Patient Active Problem List Diagnosis [...] x 3 - 1990 Restless leg syndrome MEDICAL, SURGICAL, AND PERSONAL HISTORY Past Surgical History: Procedure Laterality Date ANGIOGRAM [...] Oconnell MD; Locatio n: [facility] History reviewed. No pertinent family history. No family status information on file. Social History Social History Marital status: Spouse name: N/A Number of children: N/A Years of education: N/A Social History Main Topics Smoking status: Never Smoker Smokeless tobacco: Never Used Alcohol use No Drug use: No Sexual activity: Not Asked Other Topics Concern None Social History Narrative Merged History Encounter CURRENT MEDICATIONS Current Outpatient Prescriptions Medication Sig Dispense Refill allopurinol (ZYLOPRIM) 300 mg tablet Take 300 mg by mouth Daily. aspirin 325 mg EC tablet Take 325 mg by mouth Daily. B Complex Vitamins (B COMPLEX 1 PO) Take 1 tablet by mouth Daily. carvedilol (COREG) 25 mg tablet Take 25 mg by mouth 2 times daily (with breakfast & din ner). cetirizine (ZYRTEC) 10 mg tablet Take 10 mg by mouth Daily. cholecalciferol (VITAMIN D-3) 2000 UNITS TABS Take 2,000 Units by mouth Daily. Famotidine (PEPCID PO) Take by mouth. Take one daily furosemide (LASIX) 40 mg tablet Take 40 mg by mouth 3 times daily. HYDROmorphone (DILAUDID) 2 mg tablet Take 2 mg by mouth every 3 hours as needed for Loc n. indomethacin (INDOCIN) 50 MG capsule Take 50 [...] 2 times daily. 60 ta blet 0 lovastatin (MEVACOR) 40 MG tablet Take 40 mg by mouth nightly. Magnesium Cl-Calcium Carbonate (SLOW-MAG PO) Take 1 tablet by mouth 2 times daily. mirabegron (MYRBETRIQ) 25 mg ER tablet Take 25 mg by mouth Daily. nitroglycerin (NITROSTAT) 0.[address] 0.4 mg under the tongue every 5 minute s as needed for Chest pain. omeprazole (PRILOSEC) 40 MG capsule Take 40 mg by mouth every morning (before breakfast ). potassium chloride SA (K-DUR,KLOR-CON) 10 MEQ tablet Take 10 mEq by mouth 3 times daily . pramipexole (MIRAPEX) 1.5 MG tablet Take 1.5 mg by mouth 3 times daily. As needed No current facility-administered medications for this visit. ALLERGIES Allergies Allergen Reactions Atorvastatin Other (See Comments) Other Hydrocodone Other (See Comments) "I go into spasms" Oxycodone Other (See Comments) "I go into spasms" Tramadol Other (See Comments) "I go into spasms" Tramadol Caused spasms and pt to be in hospital ROS Review of Systems Constitutional: Negative for chills, diaphoresis, fever, malaise/fatigue and weight loss. HENT: Negative for congestion, hearing loss, nosebleeds and tinnitus. Dental Problems = No Eyes: Negative for blurred vision and double vision. Respiratory: Positive for shortness of breath. Cardiovascular: Positive for chest pain. Negative for palpitations and leg swelling. Gastrointestinal: Negative for blood in stool, constipation, diarrhea, nausea and vomiting. Genitourinary: Negative for dysuria, frequency, hematuria and urgency. Musculoskeletal: Positive for back pain, joint pain and neck pain. Negative for falls and m yalgias. Gait Problems = No Skin: Negative for itching and rash. Neurological: Positive for dizziness, tingling (feet), loss of consciousness and weakness. Negative for tremors, speech change and seizures. Lightheaded = No Endo/Heme/Allergies: Bruises/bleeds easily. Psychiatric/Behavioral: Positive for memory loss. The patient has insomnia. The patient is not nervous/anxious. OBJECTIVE: PHYSICAL EXAM BP 132/86 | Pulse 71 | Resp 16 | Ht 1.854 m (6' 1") | Wt 91 kg (200 lb 9.9 oz) | BMI 2 6.47 kg/m Physical Exam Constitutional: He is oriented to person, place, and time. He appears well-developed and we ll-nourished. No distress. Male individual in no acute distress. HENT: Head: Normocephalic. Mouth/Throat: Mucous membranes are not cyanotic. Eyes: Lids are normal. Neck: Normal carotid pulses, no hepatojugular reflux and no JVD present. Carotid bruit is n ot present. No tracheal deviation present. Cardiovascular: Normal rate, regular rhythm, S1 normal, S2 normal and normal pulses. PMI i s not displaced. Exam reveals no gallop, no S3 and no S4. No murmur heard. Pulses: Carotid pulses are 2+ on the right side, and 2+ on the left side. Femoral pulses are 2+ on the right side, and 2+ on the left side. Dorsalis pedis pulses are 2+ on the right side, and 2+ on the left side. Posterior tibial pulses are 2+ on the right side, and 2+ on the left side. Pulmonary/Chest: Effort normal and breath sounds normal. No accessory muscle usage. No resp iratory distress. He has no wheezes. He has no rhonchi. He has no rales. Abdominal: Soft. Normal appearance and bowel sounds are normal. He exhibits no abdominal br uit. There is no hepatosplenomegaly. There is no tenderness. Musculoskeletal: He exhibits no edema. Neurological: He is alert and oriented to person, place, and time. Gait normal. Skin: Skin is warm and dry. He is not diaphoretic. No cyanosis. No pallor. Nails show no cl ubbing. Psychiatric: He has a normal mood and affect. His mood appears not anxious. He does not exh ibit a depressed mood. ECG: Sinus rhythm with 1st degree AV block, RBBB. LAB RESULTS: LIPID No results found for: CHOL, TRIG, [...] 03/10/2018 HCT 40.3 03/10/2018 PLT 244 03/10/2018 I reviewed records from Tyler Mabry MD for hospitalization,including H&P, Discharge Flor mmary and lab reports on 03/08/2018-03/11/2018. Refer to battery hand. ASSESSMENT: 1. Bradycardia, irreversible, asymptomatic A. Echocardiogram [...] rate in the mid 4 0's. C. Today, patient reports feeling dizziness the past few days. Patient is physi tyler inactive. There is no signs and symptoms of overt congestive heart failure. He is in a class I of [place] [employer] functional class. There is no fluid retention on ph ysical examination. 2. Coronary artery disease A. CABG 1990. B. No chest pain. 3. Hypertension A. Blood pressure in office today is well controlled. 4. Stage III chronic kidney disease A. eGFR is 53 from 03/11/2018. 5. Inactivity 6. Hyperlipidemia PLAN: 1. Schedule patient for 48 hour Holter monitor for dizziness and lightheadedness to detect association with bradycardia. 2. Switch lovastatin to Rosuvastatin 20 mg once a day. Patient has history of CAD. Oz emanuel recommend high-intensity statin. 3. Check LFT and lipid in three months. 4. I recommend a therapeutic lifestyle change including walking 30 minutes a day and choosi ng healthy choices of diet. 5. Follow up in 4 weeks to discuss potential permanent pacemaker implantation. I, Sissy Mcmullen, am acting as a scribe on behalf of, and in the presence of Callie feliciano MD. I have reviewed and edited this note. Sissy Mcmullen, Felt Cutting Machine Operator 03/14/2018 I, Callie Blanco MD, personally performed the services described in this documentation, as scribed in my presence and it is both accurate and complete. Sissy Mcmullen, Med Ass t 03/14/2018 8:57 Electronically signed by: Callie Blanco MD [facility] 03/14/2018 Portions of this chart may have been created with [employer] voice recognition software. Occasi onal wrong-word or sound-alike substitutions may have occurred due to the inherent clements itations of voice recognition software. Please read the chart carefully and recognize, using context, where these substitutions have occurred. documented in this encounter Plan of Treatment +--------+---------+ + + + | Date | Type | Specialty | Care Team | Description | +--------+---------+ + + + | 02/25/ | Office | Cardiology | Callie Blanco, | | | 2019 | Visit | | [place] [facility] [place] [place] | [place], | | | | | | [place] [address] | | | | | | [phone] | | | | | | | | +--------+---------+ + + + + +------+--------+ + + | Name | Type | Priori | Associated Diagnoses | Order Schedule | | | | ty | | | + +------+--------+ + + | Hepatic Function | Lab | Routin | CAD, multiple | 1 Occurrences | | Panel | | e | vessel | starting 03/14/2018 | | | | | | until 03/14/2019 | + +------+--------+ + + | Lipid Panel | Lab | Routin | CAD, multiple | 1 Occurrences | | | | e | vessel | starting 03/14/2018 | | | | | | until 03/15/2019 | + +------+--------+ + + documented as of this encounter Procedures + +--------+ + + + | Procedure Name | Priori | Date/Time | Associated Diagnosis | Comments | | | ty | | | | + +--------+ + + + | ECG 12 LEAD | Routin | 03/14/2018 | Symptomatic | Results for this | | | e | 8:50 AM | bradycardia CAD, | procedure are in the | | | | PDT | multiple vessel | results section. | + +--------+ + + + documented in this encounter Results Holter monitor - 48 hour (03/17/2018 11:44 AM PDT) + + + | Narrative | Performed At | + + + | Callie Blanco MD 03/17/2018 12:42 PATIENT NAME: Kyra AGUIRRE | | Wilmer Pinon : 1935: AGE: 82 y.o. | | | PRIMARY CARE: Osbaldo Leyva | | | MD [place] READING STONE BELT SANDER: Callie Blanco MD | | | 48-HOUR HOLTER MONITOR REPORT DATE: 03/14/2018 | | | IMPRESSION: 1) The predominant rhythm is sinus with HR between | | | 58 to 98 bpm. The average HR was 72 bpm during the 48:03 hour | | | recording. 2) There were occasional PVC's (519 total, mean 10.8/hr) | | | with 11 couplets and no triplets. 3) There were very rare PAC's | | | (155 total, mean 3.2/hr). 4) There were 54 episodes of bradycardia. | | | The longest was 27 beats on Saturday 10:19. The minimum rate was | | | 51 bpm on Saturday 00:56. 5) There was no tachycardia. 6) There | | | was 1 pause of 2.o seconds on Saturday 00:05. 7) Diary was returned, | | | no symptoms were reported. Signed by: Callie Blanco | | | [facility] 03/17/2018, 11:44 | | + + + + +---------+ + + | Performing | Address | City/State/Zipcode | Phone Number | | Organization | | | | + +---------+ + + | [facility] | | | | + +---------+ + + ECG 12 lead (03/14/2018 8:50 AM PDT) + + + + + + | Component | Value | Ref Range | Performed | Pathologist | | | | | At | Signature | + + + + + + | VENTRICULAR | 71 | BPM | [facility] | | | RATE EKG | | | | | + + + + + + | ATRIAL RATE | 71 | BPM | [facility] | | + + + + + + | P-R | 280 | ms | [facility] | | | INTERVAL | | | | | + + + + + + | QRS | 146 | ms | [facility] | | | DURATION | | | | | + + + + + + | Q-T | 466 | ms | [facility] | | | INTERVAL | | | | | + + + + + + | Q-T | 506 | ms | [facility] | | | INTERVAL | | | | | | (CORRECTED) | | | | | + + + + + + | P WAVE AXIS | 41 | degrees | [facility] | | + + + + + + | QRS AXIS | 68 | degrees | [facility] | | + + + + + + | T AXIS | 38 | degrees | [facility] | | + + + + + + | INTERPRETAT | Sinus rhythm with 1st | | [facility] | | | ION TEXT | degree AV blockRight | | | | | | bundle branch | | | | | | blockAbnormal ECGWhen | | | | | | compared with ECG of | | | | | | 08-MAR-2018 | | | | | | 13:57,Nonspecific T wave | | | | | | abnormality has | | | | | | replaced inverted T | | | | | | waves in Inferior leadsT | | | | | | wave inversion less | | | | | | evident in Anterior | | | | | | leadsConfirmed by | | | | | | FRANCIS SIMMONS, CALLIE | | | | | | ([id number]) on 03/14/2018 | | | | | | 5:06:40 PM | | | | + + [...] Coronary atherosclerosis of unspecified type of vessel, alturas | | or graft | + + documented in this encounter
--- OUTSIDE RECORDS SUMMARY | ~2019-10-02 | XMS | Encounter Summary ---
Demographics + + + | Address | [address] | | | [place] [address] | + + + | Home Phone | | + + + | Preferred Language | Unknown | + + + | Marital Status | | + + + | Congregational Affiliation | 1077 | + + + | Race | Unknown | + + + | Ethnic Group | Unknown | + + + Author + + + | Author | [facility] | | | and [place] | + + + | Organization | [facility] | | | and [...] Team Providers + +------+ + | Care Ceiling Installer Name | Role | Phone | + [...] multiple | [address] | | | | | vessel | [address] | [place], | | | | | Ischemic | [place], | [place] | | | | | cardiomyopat | [place] [address] | [address] | | | | | hy | Phone: | Phone: | | | | | Congestive | [phone] | [phone] | | | | | heart | Fax: | Fax: | | | | | failure, | [phone] | [phone] | | | | | unspecified | [...] + + | 08/24/ | Hospital | [facility] | BlancabasiaHans feliciano, | CAD, multiple | | 2020 | Encounter | MED CTR NUCLEAR | MD [address] [facility] | vessel; Ischemic | | | | MEDICINE [address] [place], | cardiomyopathy - | | | | [address] [place], | [place] [address] | ECHO Jun 2014 EF | | | | [place] [address] | [phone] | 55-60%; Congestive | | | | [phone] | | heart failure, | | | | | [employer] | unspecified HF | | | | | | chronicity, | | | | | | unspecified heart | | | | | | failure type (HCC); | | | | | | S/P CABG x - 1990; | | | | | | Ischemic | | | | | | cardiomyopathy; S/P | | | | | | CABG x 3 | +--------+ + + + + Social [...] + + + + | Pulse | - | - | | + [...] + + + + | Weight | 103.9 kg (229 lb) | 08/25/2019 10:00 AM | | | | | PDT | | + + + + + | Height | - | - | | + + + + + | Body Mass Index | 30.21 | 07/31/2019 1:57 PM | | | [...] | 02/25/ | Office | Cardiology | [place]anc[place]am[place], | | 2019 | Visit | | [address] | | | | | | [place], | | | | | | [place] [address] | | | | | | [phone] | | | | | | | [...] Coronary atherosclerosis of unspecified type of vessel, [place] | | or graft | + + [...] in this encounter Administered Medications + +--------+ +-------+------+------+ | Medication Order | MAR | Action | Dose | Rate | Site | | | Action | Date | | | | + +--------+ +-------+------+------+ | aminophylline injection 75 mg | Given | 08/25/19 | 75 mg | | | | 75 mg, Intravenous, ONCE PRN, | | 20 10:18 | | | | | protocol, Starting Tu08/25/19 at | | AM PDT | | | | | 1017, For 1 dose, Nuclear | | | | | | | Medicine | | | | | | + +--------+ +-------+------+------+ +---+---+ | | | +---+---+ + +-------+ + +--------+---+ | dipyridamole (PERSANTINE) 60mg | Given | 08/25/19 | 14.7538 | 590.2 | | | in 40 mL NS syringe 0.142 | | 20 10:45 | mg/min | mL/hr | | | mg/kg/min | | AM PDT | | | | | 103.9 kg (590.152 mL/hr, rounded | | | | | | | to 590.2 mL/hr), Intravenous, | | | | | | | Administer over 4 Minutes, ONCE, | | | | | | | e 08/25/19 at 1045, For 1 dose, | | | | | | | Nuclear Medicine | | | | | | + +-------+ + +--------+---+ +---+---+ | | | +---+---+ + +-------+ + +---+---+ | technetium TC-99M sestamibi | Given | 08/25/19 | 10.24 | | | | (CARDIOLITE) injection 10.24 | | 20 10:18 | millicur | | | | millicurie 10.24 millicurie, | | AM PDT | ies | | | | Intravenous, ONCE PRN, Other, | | | | | | | Starting e 08/25/19 at 1018, For | | | | | | | 1 dose, Nuclear Medicine | | | | | | + +-------+ + +---+---+ +---+---+ | | | +---+---+ documented in this encounter"
--- OUTSIDE RECORDS SUMMARY | ~2019-10-02 | XMS | Clinical Summary ---
Demographics + + + | Address | [address] | | | [place] [address] | + + + | Home Phone | | + + + | Preferred Language | Unknown | + + + | Marital Status | | + + + | Samaritan Affiliation | Unknown | + + + | Race | Unknown | + + + | Ethnic Group | Unknown | + + + Author + + + | Author | [employer] (Historical as of | | | 01-24-19) | + + + | Organization | [facility] [employer] (Historical as of | | | 01-24-19) [...] [place] | | | | | [address] | | + + + + + Care Team Providers + +------+ + | Care Corporate Attorney Name | Role | Phone | + [...] | MA - [employer] | MA-FAM | [id number] | Medica | | | | FAMILY [...] | [birth year] | Home: | [address] | | | al/Fam | | 1936 | [phone] | [place], [place] | | | clifford | | | [address] | [address] | + +--------+ +--------+ + +
--- OUTSIDE RECORDS SUMMARY | ~2019-10-02 | XMS | Encounter Summary ---
Demographics + + + | Address | [address] | | | [place] [address] | + + + | Home Phone | | + + + | Preferred Language | Unknown | + + + | Marital Status | | + + + | Islam Affiliation | 1077 | + + + | Race | Unknown | + + + | Ethnic Group | Unknown | + + + Author + + + | Author | [facility] | | | and [place] | + + + | Organization | [facility] | | | [...] Team Providers + +------+ + | Care Cartridge Assembling Machine Adjuster Name | Role | Phone | + +------+ + | Osbaldo Wood MD | PCP | | + +------+ + Encounter Details +--------+ + + + + | Date | Type | Department | Care Team | Description | +--------+ + + + + | 06/30/ | Orders Only | [facility] | Mychal Real MD | | | 2014 | | CARDIOLOGY [place] | [address] | | | | | ECHO [address] | [place] [address] | | | | | [place], [place] | [phone] | | | | | [address] | | | | | | [phone] | | | +--------+ + + + [...] | 2019 | Visit | | [address] | | | | | | [place], | | | | | | [place] [address] | | | | | | [phone] | | | | | | | [...] MV A Angel: 0.95 m/s MV Dec [place]: 5.67 m/s2 MV DecT: | | | [...] TR Vmax: | | | 2.05 m/s Assisted Living Care Manager: ELI Authenticated by: Reno Zamarripa Report | | | Date/Time: -- [id number]:44 | | + + + + + [...] cmLVPWd: 0.87 cmLVOT Area: | | 4.58 de4KZCO Diam: 2.41 cm%FS: 33.93 %EF(Teich): 62.13 %ESV(Teich): [...] | Index (A-L): 34.93 ml/m2LAAs A2C: 21.19 mf2FRKIL A-L A2C: 72.47 mlLALs A2C: 5.26 | | cmLAAs A4C: 24.01 qt6OMVIV A-L A4C: 81.57 mlLALs A4C: 5.99 cmLVEF_4Ch_Q: 60.64 | | %Ao Diam: 3.38 cmLA Diam: 5.07 cmLA/Ao: 1.5AV maxP.14 mmHgAV meanP.22 | | mmHgAV Vmax: 1.23 m/Alex Vmean: 0.84 m/Alex VTI: 26.28 cmAVA Vmax: 3.61 cm2AVA | | (VTI): 3.56 as5WAOI maxP.82 mmHgLVOT meanP.05 mmHgLVSI Dopp: 39.92 | | ml/m2LVSV Dopp: 93.83 mlLVOT Vmax: 0.97 m/sLVOT Vmean: 0.67 m/sLVOT VTI: 20.47 | | cmIVRT: 83.04 msMV A Angel: 0.95 m/sMV Dec [place]: 5.67 m/s2MV DecT: 173.51 msMV E | | Angel: 0.97 m/sMV E/A Ratio: 1.02MV PHT: 50.31 msMVA By PHT: 4.37 zi6Srqxvl e': | | 0.05 m/sSeptal E/e': 18.83Lateral e': 0.09 m/sLateral E/e': 10.48RAP: 10 | | mmHgRVSP: 26.85 mmHgTR maxP.85 mmHgTR Vmax: 2.05 m/s Assisted Living Care Manager: | | DHAuthenticated by: Reno Zhu Date/Time: -[id number]:49:44 IMPRESSION: | | 1. Overall left ventricular [...] A Angel: 0.95 m/s | |MV Dec [place]: 5.67 m/s2 | |MV DecT: 173.51 ms [...] |TR Vmax: 2.05 m/s | | | |Assisted Living Care Manager: ELI | |Authenticated by: Reno Zamarripa | |Report Date/Time: -- [id number]:49:44 | | | |IMPRESSION: | |1. Overall [...]
--- OUTSIDE RECORDS SUMMARY | ~2019-10-02 | XMS | Encounter Summary ---
Demographics + + + | Address | [address] | | | [place] [address] | + + + | Home Phone | | + + + | Preferred Language | Unknown | + + + | Marital Status | | + + + | Gnosticist Affiliation | 1077 | + + + | Race | Unknown | + + + | Ethnic Group | Unknown | + + + Author + + + | Author | [facility] | | | and [place] | + + + | Organization | [facility] | | | [...] Team Providers + +------+ + | Care Furniture Assembler Name | Role | Phone | + +------+ + | Osbaldo Wood MD | PCP | | + +------+ + Encounter Details +--------+ + + + + | Date | Type | Department | Care Team | Description | +--------+ + + + + | 02/12/ | Orders Only | [facility] | Estevan De La Rosa | | | 2013 | | NEPRHOLOGY [place] | MD [address] | | | | | [address] | [address] | | | | | [address] [place], [place] | [place] | | | | | [address] | [address] | | | | | [phone] | [phone] | | | | | | | [...] 2019 | Visit | | [address] | | | | | | [place], | | | | | | [place] [address] | | | | | | [phone] | | | | | | | [...] .ORD.MG/G | | | | | | (BEAKER) | | | | | | | [...] | + +-------+ + + + | Red Blood | 4.55 | 10 | EXTERNAL | | | Cells [...] | | | LAB | | | GABONESE | | | | | + +-------+ [...] | + +-------+ + + + | Red Blood | 4.51 | 10 | EXTERNAL | | | Cells [...]
--- OUTSIDE RECORDS SUMMARY | ~2019-10-02 | XMS | Clinical Summary ---
Demographics + + + | Address | [address] | | | [place] [address] | + + + | Home Phone | | + + + | Preferred Language | Unknown | + + + | Marital Status | Single | + + + | Adventist Affiliation | UNK | + + + | Race | Unknown | + + + | Ethnic Group | Other Race | + + + Author + + + | Author | [facility] | + + + | Organization | [facility] | + + + | Address | Unknown | + + + | Phone | Unavailable | + + + Support + + +---------+ + | Name | Relationship | Address | Phone | + + +---------+ + | None None | ECON | Unknown | Unavailable | + + +---------+ + Care Team Providers + +------+ + | Care Chemical Applicator Name | Role | Phone | + +------+ + PCP | Unavailable | + +------+ + Source Comments ANA is fully live on both [facility] Ambulatory and [facility] InPatient.[facility] Allergies Not on File Medications Not on file Active Problems Not [...] recent travel history available. | + + Last Filed Vital Signs Not on file Plan of Treatment + + + + + | Health Maintenance | Due Date | Last Done | Comments | + + + + + | Pneumococcal | | | | | vaccination (1 of 2 | 0 | | | | - PCV13) | | | | + + + + + | Influenza (Flu) | | | | | vaccination (#1) | 9 | | | + + + + + Results Not on filefrom Last 3 Months Insurance + +--------+ +--------+ + +------+ | Payer | Benefi | Subscriber | Effect | Phone | Address | Type | | | t Plan | ID | malik | | | | | | / | | Dates | | | | | | Group | | | | | | + +--------+ +--------+ + +------+ | BLUE CROSS BLUE | REGENC | xxxxxxxxxxx | 09/12/19 | [phone] | [address] | PPO | | SHIELD | E BCBS | x | 18-Pre | 8 | [id number] | | | | | | sent | | [place], | | | | | | | | [place] | | | | | | | | [address] | | + +--------+ +--------+ + +------+ + +--------+ +--------+ + + | Guarantor Name | Accoun | Relation to | Date | Phone | Billing Address | | | t Type | Patient | of | | | | | | | | | | + +--------+ +--------+ + + | Wilmer Pinon | Person | Self | [birth year] | [address] | | | al/Fam | | 1936 | [phone] | BUSINESS ANALYST PROJECT MANAGER [place] [id number] | | | [place] | | | 1 (Home) | | + +--------+ +--------+ + +"
--- OUTSIDE RECORDS SUMMARY | ~2019-10-02 | XMS | Encounter Summary ---
Demographics + + + | Address | [address] | | | [place] [address] | + + + | Home Phone | | + + + | Preferred Language | Unknown | + + + | Marital Status | | + + + | Latter-Day Affiliation | 1077 | + + + | Race | Unknown | + + + | Ethnic Group | Unknown | + + + Author + + + | Author | [facility] | | | and [place] | + + + | Organization | [facility] | | | and [place] | + + + | Address | Unknown | + + + | Phone | Unavailable | + + + Support + + +---------+ + | Name | Relationship | Address | Phone | + + +---------+ + | Rhona Pinno | ECON | Unknown | | + + +---------+ + | Rhonamakayla Pinon | ECON | Unknown | | + + +---------+ + Care Team Providers + +------+ + | Care Curator Horticultural Museum Name | Role | Phone | + +------+ + PCP | Unavailable | + +------+ + Encounter Details +--------+ + + + + | Date | Type | Department | Care Team | Description | +--------+ + + + + | 05/11/ | Hospital | [facility] | Sony Oconnell MD | | | 2010 | Encounter | MED CTR MP INTRA OP | [address] | | | | | [address] | [place], [place] | | | | | [place], [place] | [address] | | | | | [address] | [phone] | | | | | [phone] | | | +--------+ + + + [...] [place], | | | | | | [place] [address] | | | | | | [phone] | | | | | | | | +--------+---------+ + + + documented as of this encounter Visit Diagnoses Not on filedocumented in this encounter"
--- OUTSIDE RECORDS SUMMARY | ~2019-10-02 | XMS | Encounter Summary ---
Demographics + + + | Address | [address] | | | [place] [address] | + + + | Home Phone [...] Author + + + | Author | [facility] | + + + | Organization | [facility] | + + + | Address | Unknown | + + + | Phone | Unavailable | + + + Support + + +---------+ + | Name | Relationship | Address | Phone | + + +---------+ + | None None | ECON | Unknown | Unavailable | + + +---------+ + Care Team Providers + +------+ + | Care Fabricating Machine Operator Name | Role | Phone | + +------+ + PCP | Unavailable | + +------+ + Encounter Details +--------+ + + + + | Date | Type | Department | Care Team | Description | +--------+ + + + + | 03/04/ | Ancillary | [facility] | | | | 2005 | Registratio | Practice [address] | | | | | n | [facility], | | | | | | [place] [address] | | | | | | [phone] | | | +--------+ + + + [...]
--- OUTSIDE RECORDS SUMMARY | ~2019-10-02 | XMS | Encounter Summary ---
Demographics + + + | Address | [address] | | | [place] [address] | + + + | Home Phone | | + + + | Preferred Language | Unknown | + + + | Marital Status | | + + + | Uatsdin Affiliation | 1077 | + + + | Race | Unknown | + + + | Ethnic Group | Unknown | + + + Author + + + | Author | [facility] | | | and [place] | + + + | Organization | [facility] | | | [...] Team Providers + +------+ + | Care Shipyard Helper Name | Role | Phone | + +------+ + | Osbaldo Wood MD | PCP | | + +------+ + Encounter Details +--------+ + + + + | Date | Type | Department | Care Team | Description | +--------+ + + + + | 03/17/ | Abstract | [facility] | Provider, | | | 2020 | | CARDIOLOGY [address] | [address] | | | | | [place], | [place] | | | | | [place] [address] | [place] [address] | | | | | [phone] | | | +--------+ + + + [...] | | | | | | [place] [address] | | | | | | [phone] | | | | | | | | +--------+---------+ + + + documented as of this encounter Procedures + +--------+ + + + | Procedure Name | Priori | Date/Time | Associated Diagnosis | Comments | | | ty | | | | + +--------+ + + + | EXTERNAL LAB: BUN | Routin | 08/24/2019 | | Results for this | | | e | | | procedure are in the | | | | | | results section. | + +--------+ + + + | EXTERNAL LAB: | Routin | 08/24/2019 | | Results for this | | GLUCOSE | e | | | procedure are in the | | | | | | results section. | + +--------+ + + + | EXTERNAL LAB: | Routin | 08/24/2019 | | Results for this | | CALCIUM | e | | | procedure are in the | | | | | | results section. | + +--------+ + + + | EXTERNAL LAB: CARBON | Routin | 08/24/2019 | | Results for this | | DIOXIDE | e | | | procedure are in the | | | | | | results section. | + +--------+ + + + | EXTERNAL LAB: | Routin | 08/24/2019 | | Results for this | | CHLORIDE | e | | | procedure are in the | | | | | | results section. | + +--------+ + + + | EXTERNAL LAB: | Routin | 08/24/2019 | | Results for this | | POTASSIUM | e | | | procedure are in the | | | | | | results section. | + +--------+ + + + | EXTERNAL LAB: SODIUM | Routin | 08/24/2019 | | Results for this | | | e | | | procedure are in the | | | | | | results section. | + +--------+ + + + | EXTERNAL LAB: EGFR | Routin | 08/24/2019 | | Results for this | | | e | | | procedure are in the | | | | | | results section. | + +--------+ + + + | EXTERNAL LAB: | Routin | 08/24/2019 | | Results for this | | CREATININE | e | | | procedure are in the | | | | | | results section. | + +--------+ + + + | BASIC METABOLIC | Routin | 08/24/2019 | | Results for this | | PANEL | e | | | procedure are in the | | | | | | results section. | + +--------+ + + + documented in this encounter Results Basic Metabolic Panel (08/24/2019) + +-------+ + + + | Component | Value | Ref Range | Performed | Pathologist | | | | | At | Signature | + +-------+ + + + | Anion Gap | 15 | 7 - 21 mmol/L | | | + +-------+ + + + | Bun/Creatin | 13.7 | 6.0 - 28.6 | | | | ine | | | | | + +-------+ + + + + + | Specimen | + + | Blood | + + External Lab: BUN (08/24/2019) + +--------+ + + + | Component | Value | Ref Range | Performed | Pathologist | | | | | At | Signature | + +--------+ + + + | BUN, | 28 (A) | 6 - 23 | EXTERNAL | | | External | | | LAB | | + +--------+ + + + + +---------+ + + | Performing | Address | City/State/Zipcode | Phone Number | | Organization | | | | + +---------+ + + | EXTERNAL LAB | | | | + +---------+ + + External Lab: Glucose (08/24/2019) + +---------+ + + + | Component | Value | Ref Range | Performed | Pathologist | | | | | At | Signature | + +---------+ + + + | Glucose, | 162 (A) | 70 - 100 | EXTERNAL | | | External | | | LAB | | + +---------+ + + + + +---------+ + + | Performing | Address | City/State/Zipcode | Phone Number | | Organization | | | | + +---------+ + + | EXTERNAL LAB | | | | + +---------+ + + External Lab: Calcium (08/24/2019) + +-------+ + + + | Component | Value | Ref Range | Performed | Pathologist | | | | | At | Signature | + +-------+ + + + | Calcium, | 9.5 | 8.5 - 10.3 | EXTERNAL | | | External | | | LAB | | + +-------+ + + + + +---------+ + + | Performing | Address | City/State/Zipcode | Phone Number | | Organization | | | | + +---------+ + + | EXTERNAL LAB | | | | + +---------+ + + External Lab: Carbon Dioxide (08/24/2019) + +-------+ + + + | Component | Value | Ref Range | Performed | Pathologist | | | | | At | Signature | + +-------+ + + + | Carbon | 26 | 19 - 31 | EXTERNAL | | | Dioxide, | | | LAB | | | External | | | | | + +-------+ + + + + +---------+ + + | Performing | Address | City/State/Zipcode | Phone Number | | Organization | | | | + +---------+ + + | EXTERNAL LAB | | | | + +---------+ + + External Lab: Chloride (08/24/2019) + +-------+ + + + | Component | Value | Ref Range | Performed | Pathologist | | | | | At | Signature | + +-------+ + + + | Chloride, | 105 | 95 - 112 | EXTERNAL | | | External | | | LAB | | + +-------+ + + + + +---------+ + + | Performing | Address | City/State/Zipcode | Phone Number | | Organization | | | | + +---------+ + + | EXTERNAL LAB | | | | + +---------+ + + External Lab: Potassium (08/24/2019) + +-------+ + + + | Component | Value | Ref Range | Performed | Pathologist | | | | | At | Signature | + +-------+ + + + | Potassium, | 4.2 | 3.6 - 5.1 | EXTERNAL | | | External | | | LAB | | + +-------+ + + + + +---------+ + + | Performing | Address | City/State/Zipcode | Phone Number | | Organization | | | | + +---------+ + + | EXTERNAL LAB | | | | + +---------+ + + External Lab: Sodium (08/24/2019) + +-------+ + + + | Component | Value | Ref Range | Performed | Pathologist | | | | | At | Signature | + +-------+ + + + | Sodium, | 142 | 132 - 143 | EXTERNAL | | | External | | | LAB | | + +-------+ + + + + +---------+ + + | Performing | Address | City/State/Zipcode | Phone Number | | Organization | | | | + +---------+ + + | EXTERNAL LAB | | | | + +---------+ + + External Lab: eGFR (08/24/2019) + +-------+ + + + | Component | Value | Ref Range | Performed | Pathologist | | | | | At | Signature | + +-------+ + + + | eGFR, | 31 | | EXTERNAL | | | External | | | LAB | | + +-------+ + + + + + | Specimen | + + | Blood | + + + +---------+ + + | Performing | Address | City/State/Zipcode | Phone Number | | Organization | | | | + +---------+ + + | EXTERNAL LAB | | | | + +---------+ + + External Lab: Creatinine (08/24/2019) + + + + + + | Component | Value | Ref Range | Performed | Pathologist | | | | | At | Signature | + + + + + + | Creatinine, | 2.04 (A) | 0.7 - 1.11 | EXTERNAL | | | External | | | LAB | | + + + + + + + + | Specimen | + + | Blood | + + + +---------+ + + | Performing | Address | City/State/Zipcode | Phone Number | | Organization | | | | + +---------+ + + | EXTERNAL LAB | | | | + +---------+ + + documented in this encounter Visit Diagnoses Not on filedocumented in this encounter"
--- OUTSIDE RECORDS SUMMARY | ~2019-10-02 | XMS | Encounter Summary ---
Demographics + + + | Address | [address] | | | [place] [address] | + + + | Home Phone | | + + + | Preferred Language | Unknown | + + + | Marital Status | | + + + | Druze Affiliation | 1077 | + + + | Race | Unknown | + + + | Ethnic Group | Unknown | + + + Author + + + | Author | [facility] | | | and [place] | + + + | Organization | [facility] | | | [...] Team Providers + +------+ + | Care Gasoline Finisher Name | Role | Phone | + [...] multiple | [address] | | | | | vessel | [address] | [place], | | | | | Ischemic | [place], | [place] | | | | | cardiomyopat | [place] [address] | [address] | | | | | hy | Phone: | Phone: | | | | | Congestive | [phone] | [phone] | | | | | heart | Fax: | Fax: | | | | | failure, | [phone] | [phone] | | | | | unspecified | [...] + + | 08/24/ | Hospital | [facility] | Hans Balnco, | | | 2020 | Encounter | MED CTR NUCLEAR | MD [address] | | | | | MEDICINE [address] [place], | | | | | [address] [place], | [place] [address] | | | | | [place] [address] | [phone] | | | | | [phone] | | | +--------+ + + + [...] [place], | | | | | | [place] [address] | | | | | | [phone] | | | | | | | [...]
--- OUTSIDE RECORDS SUMMARY | ~2019-10-02 | XMS | Encounter Summary ---
Demographics + + + | Address | [address] | | | [place] [address] | + + + | Home Phone | | + + + | Preferred Language | Unknown | + + + | Marital Status | | + + + | Tenriism Affiliation | 1077 | + + + | Race | Unknown | + + + | Ethnic Group | Unknown | + + + Author + + + | Author | [facility] | | | and [place] | + + + | Organization | [facility] | | | and [...] Team Providers + +------+ + | Care Gm/Svp [employer] Publisher Business Name | Role | Phone | + +------+ + PCP | Unavailable | + +------+ + Encounter Details +--------+ + + + + | Date | Type | Department | Care Team | Description | +--------+ + + + + | 04/06/ | Hospital | [facility] | Bianka, | | | 2003 - | Encounter | MED CTR CANCER | Dez Leyva MD [address] | | | | | [place] [address] | [place] | | | 06/07/ | | [place], [place] | [place] [address] | | | 2003 | | [address] | [phone] | | | | | [phone] | | | +--------+ + + + [...] | | | | | | [place] [address] | | | | | | [phone] | | | | | | | | +--------+---------+ + + + documented as of this encounter Visit Diagnoses Not on filedocumented in this encounter"
--- OUTSIDE RECORDS SUMMARY | ~2019-10-02 | XMS | Encounter Summary ---
Demographics + + + | Address | [address] | | | [place] [address] | + + + | Home Phone | | + + + | Preferred Language | Unknown | + + + | Marital Status | | + + + | Taoist Affiliation | 1077 | + + + | Race | Unknown | + + + | Ethnic Group | Unknown | + + + Author + + + | Author | [facility] | | | and [place] | + + + | Organization | [facility] | | | and [...] Team Providers + +------+ + | Care Client Advocate Name | Role | Phone | + [...] + | 08/05/ | Telephone | [facility] | LopezsamHans, | Other (potassium | | 2019 | | CARDIOLOGY [address] | MD [address] | dosage) | | | | [place], | [place], | | | | | [place] [address] | [place] [address] | | | | | [phone] | [phone] | | | | | | | [...] | | | | | | [place] [address] | | | | | | [phone] | | | | | | | | +--------+---------+ + + + documented as of this encounter Visit Diagnoses Not on filedocumented in this encounter"
--- OUTSIDE RECORDS SUMMARY | ~2019-10-02 | XMS | Encounter Summary ---
Demographics + + + | Address | [address] | | | [place] [address] | + + + | Home Phone | | + + + | Preferred Language | Unknown | + + + | Marital Status | | + + + | Pentecostal Affiliation | 1077 | + + + | Race | Unknown | + + + | Ethnic Group | Unknown | + + + Author + + + | Author | [facility] | | | and [place] | + + + | Organization | [facility] | | | [...] Team Providers + +------+ + | Care Secretary To The Vice President Name | Role | Phone | + +------+ + | Osbaldo Wood MD | PCP | | + +------+ + Encounter Details +--------+ + + + + | Date | Type | Department | Care Team | Description | +--------+ + + + + | 03/17/ | Abstract | [facility] | Provider, | | | 2020 | | CARDIOLOGY [address] | MD [address] | | | | | [place], | [place] | | | | | [place] [address] | [place] [address] | | | | | [phone] | | | +--------+ + + + [...] [place], | | | | | | [place] [address] | | | | | | [phone] | | | | | | | [...]
--- OUTSIDE RECORDS SUMMARY | ~2019-10-02 | XMS | Encounter Summary ---
Demographics + + + | Address | [address] | | | [place] [address] | + + + | Home Phone | | + + + | Preferred Language | Unknown | + + + | Marital Status | | + + + | Sabianism Affiliation | 1077 | + + + [...] Team Providers + +------+ + | Care Research Methodologist Name | Role | Phone | + +------+ + | Osbaldo Wood MD | PCP | | + +------+ + Encounter Details +--------+ + + + + | Date | Type | Department | Care Team | Description | +--------+ + + + + | 11// | Abstract | [facility] | Provider, | | | 2019 | | CARDIOLOGY [address] | MD Angela Timmy | | | | | [place], | [place] | | | | | [place] [address] | [place] [address] | | | | | [phone] | | | +--------+ + + + [...] [place], | | | | | | [place] [address] | | | | | | [phone] | | | | | | | | +--------+---------+ + + + documented as of this encounter Procedures + +--------+ + + + | Procedure Name | Priori | Date/Time | Associated Diagnosis | Comments | | | ty | | | | + +--------+ + + + | EXTERNAL LAB: JASMIN | Routin | 12/08/2018 | | Results for this | | | e | | | procedure are in the | | | | | | results section. | + +--------+ + + + | EXTERNAL LAB: | Routin | 12/08/2018 | | Results for this | | GLUCOSE | e | | | procedure are in the | | | | | | results section. | + +--------+ + + + | EXTERNAL LAB: MICAELAMB | Routin | 12/08/2018 | | Results for this | | | e | | | procedure are in the | | | | | | results section. | + +--------+ + + + | EXTERNAL LAB: MICAELA | Routin | 12/08/2018 | | Results for this | | TOTAL | e | | | procedure are in the | | | | | | results section. | + +--------+ + + + | EXTERNAL LAB: | Routin | 12/08/2018 | | Results for this | | TROPONIN T | e | | | procedure are in the | | | | | | results section. | + +--------+ + + + | EXTERNAL LAB: MANSOOR | Routin | 12/08/2018 | | Results for this | | | e | | | procedure are in the | | | | | | results section. | + +--------+ + + + | EXTERNAL LAB: AST | Routin | 12/08/2018 | | Results for this | | | e | | | procedure are in the | | | | | | results section. | + +--------+ + + + | EXTERNAL LAB: | Routin | 12/08/2018 | | Results for this | | ALKALINE PHOSPHATASE | e | | | procedure are in the | | | | | | results section. | + +--------+ + + + | EXTERNAL LAB: | Routin | 12/08/2018 | | Results for this | | BILIRUBIN, TOTAL | e | | | procedure are in the | | | | | | results section. | + +--------+ + + + | EXTERNAL LAB: | Routin | 12/08/2018 | | Results for this | | ALBUMIN | e | | | procedure are in the | | | | | | results section. | + +--------+ + + + | EXTERNAL LAB: | Routin | 12/08/2018 | | Results for this | | PROTEIN, TOTAL | e | | | procedure are in the | | | | | | results section. | + +--------+ + + + | EXTERNAL LAB: | Routin | 12/08/2018 | | Results for this | | PHOSPHORUS | e | | | procedure are in the | | | | | | results section. | + +--------+ + + + | EXTERNAL LAB: | Routin | 12/08/2018 | | Results for this | | MAGNESIUM | e | | | procedure are in the | | | | | | results section. | + +--------+ + + + | EXTERNAL LAB: | Routin | 12/08/2018 | | Results for this | | CALCIUM | e | | | procedure are in the | | | | | | results section. | + +--------+ + + + | EXTERNAL LAB: CARBON | Routin | 12/08/2018 | | Results for this | | DIOXIDE | e | | | procedure are in the | | | | | | results section. | + +--------+ + + + | EXTERNAL LAB: | Routin | 12/08/2018 | | Results for this | | CHLORIDE | e | | | procedure are in the | | | | | | results section. | + +--------+ + + + | EXTERNAL LAB: | Routin | 12/08/2018 | | Results for this | | POTASSIUM | e | | | procedure are in the | | | | | | results section. | + +--------+ + + + | EXTERNAL LAB: SODIUM | Routin | 12/08/2018 | | Results for this | | | e | | | procedure are in the | | | | | | results section. | + +--------+ + + + | EXTERNAL LAB: CHIQUITA | Routin | 12/08/2018 | | Results for this | | | e | | | procedure are in the | | | | | | results section. | + +--------+ + + + | EXTERNAL LAB: CHIQUITA | Routin | 12/08/2018 | | Results for this | | | e | | | procedure are in the | | | | | | results section. | + +--------+ + + + | EXTERNAL LAB: RAJAT | Jimenez | 12/08/2018 | | Results for this | | | e | | | procedure are in the | | | | | | results section. | + +--------+ + + + | EXTERNAL LAB: MARGARET | Routin | 12/08/2018 | | Results for this | | | e | | | procedure are in the | | | | | | results section. | + +--------+ + + + | EXTERNAL LAB: | Routin | 12/08/2018 | | Results for this | | CREATININE | e | | | procedure are in the | | | | | | results section. | + +--------+ + + + | RULE OUT MYOCARDIAL | Routin | 12/08/2018 | | Results for this | | INFARCTION | e | | | procedure are in the | | | | | | results section. | + +--------+ + + + | CBC WITH | Routin | 12/08/2018 | | Results for this | | DIFFERENTIAL | e | | | procedure are in the | | | | | | results section. | + +--------+ + + + | COMPREHENSIVE | Routin | 12/08/2018 | | Results for this | | METABOLIC PANEL | e | | | procedure are in the | | | | | | results section. | + +--------+ + + + documented in this encounter Results Comprehensive Metabolic Panel (12/08/2018) + +-------+ + + + | Component | Value | Ref Range | Performed | Pathologist | | | | | At | Signature | + +-------+ + + + | Anion Gap | 12 | 7 - 21 mmol/L | | | + +-------+ + + + | Bun/Creatin | 19.2 | 6.0 - 28.6 | | | | ine | | | | | + +-------+ + + + | Globulin | 2.9 | 1.8 - 3.5 | | | + +-------+ + + + | Albumin/Chantell | 1.4 | 1.1 - 2.4 | | | | bulin Ratio | | | | | + +-------+ + + + + + | Specimen | + + | Blood | + + CBC with Differential (12/08/2018) + +-------+ + + + | Component | Value | Ref Range | Performed | Pathologist | | | | | At | Signature | + +-------+ + + + | MCH | 33.0 | 27.0 - 33.0 pg | | | + +-------+ + + + | MCHC | 33.0 | 30.0 - 36.0 | | | | | | g/dL | | | + +-------+ + + + | % Basophils | 0.6 | 2.0 % | | | + +-------+ + + + + + | Specimen | + + | Blood | + + Rule Out Myocardial (12/08/2018) + + + + + + | Component | Value | Ref Range | Performed | Pathologist | | | | | At | Signature | + + + + + + | Myoglobin | 96.44 (A) | 28 - 72 ng/mL | | | + + + + + + | CK Index | 3.3 | 4.1 | | | + + + + + + | CKMB, | Negative | | | | | Total, | | | | | | External | | | | | + + + + + + + + | Specimen | + + | Blood | + + External Lab: CKMB (12/08/2018) + +-------+ + + + | Component | Value | Ref Range | Performed | Pathologist | | | | | At | Signature | + +-------+ + + + | CKMB, | 2.31 | 0 - 7.7 | EXTERNAL | | | Total, | | | LAB | | | External | | | | | + +-------+ + + + + +---------+ + + | Performing | Address | City/State/Zipcode | Phone Number | | Organization | | | | + +---------+ + + | EXTERNAL LAB | | | | + +---------+ + + External Lab: Micaela Total (12/08/2018) + +-------+ + + + | Component | Value | Ref Range | Performed | Pathologist | | | | | At | Signature | + +-------+ + + + | CK, Total, | 71 | 24 - 195 | EXTERNAL | | | External | | | LAB | | + +-------+ + + + + +---------+ + + | Performing | Address | City/State/Zipcode | Phone Number | | Organization | | | | + +---------+ + + | EXTERNAL LAB | | | | + +---------+ + + External Lab: CBC (12/08/2018) + + + + + + | Component | Value | Ref Range | Performed | Pathologist | | | | | At | Signature | + + + + + + | Neutrophils | 67.6 | 39 - 80 | EXTERNAL | | | %, | | | LAB | | | External | | | | | + + + + + + | Lymphocytes | 19.1 (A) | 24 - 44 | EXTERNAL | | | %, | | | LAB | | | External | | | | | + + + + + + | Monocytes | 6.6 | 0 - 12 | EXTERNAL | | | %, External | | | LAB | | + + + + + + | Eosinophils | 6.1 (A) | 0 - 6 | EXTERNAL | | | %, | | | LAB | | | External | | | | | + + + + + + + +---------+ + + | Performing | Address | City/State/Zipcode | Phone Number | | Organization | | | | + +---------+ + + | EXTERNAL LAB | | | | + +---------+ + + External Lab: TSH (12/08/2018) + + + + + + | Component | Value | Ref Range | Performed | Pathologist | | | | | At | Signature | + + + + + + | TSH, | 1.50Comment: 3rd | 0.27 - 4.2 | EXTERNAL | | | External | Generation | | LAB | | + + + + + + + + | Specimen | + + | Blood | + + + +---------+ + + | Performing | Address | City/State/Zipcode | Phone Number | | Organization | | | | + +---------+ + + | EXTERNAL LAB | | | | + +---------+ + + External Lab: Troponin T (12/08/2018) + +-------+ + + + | Component | Value | Ref Range | Performed | Pathologist | | | | | At | Signature | + +-------+ + + + | Troponin T, | 0.010 | 0.01 | EXTERNAL | | | External | | | LAB | | + +-------+ + + + + +---------+ + + | Performing | Address | City/State/Zipcode | Phone Number | | Organization | | | | + +---------+ + + | EXTERNAL LAB | | | | + +---------+ + + External Lab: CBC (12/08/2018) + + + + + + | Component | Value | Ref Range | Performed | Pathologist | | | | | At | Signature | + + + + + + | WBC, | 7.9 | 4.5 - 11 | EXTERNAL | | | External | | | LAB | | + + + + + + | HGB, | 12.9 (A) | 13.5 - 18 | EXTERNAL | | | External | | | LAB | | + + + + + + | HCT, | 39.0 (A) | 41 - 50 | EXTERNAL | | | External | | | LAB | | + + + + + + | PLT, | 227 | 140 - 440 | EXTERNAL | | | External | | | LAB | | + + + + + + | RBC, | 3.92 (A) | 4.3 - 5.7 | EXTERNAL | | | External | | | LAB | | + + + + + + | MCV, | 100 (A) | 81 - 99 | EXTERNAL | | | External | | | LAB | | + + + + + + | RDW, | 15.1 (A) | 10.5 - 15 | EXTERNAL | | | External | | | LAB | | + + + + + + + +---------+ + + | Performing | Address | City/State/Zipcode | Phone Number | | Organization | | | | + +---------+ + + | EXTERNAL LAB | | | | + +---------+ + + External Lab: JASMIN (12/08/2018) + +--------+ + + + | Component | Value | Ref Range | Performed | Pathologist | | | | | At | Signature | + +--------+ + + + | JASMIN, | 44 (A) | 6 - 23 | EXTERNAL | | | External | | | LAB | | + +--------+ + + + + +---------+ + + | Performing | Address | City/State/Zipcode | Phone Number | | Organization | | | | + +---------+ + + | EXTERNAL LAB | | | | + +---------+ + + External Lab: Glucose (12/08/2018) + +---------+ + + + | Component | Value | Ref Range | Performed | Pathologist | | | | | At | Signature | + +---------+ + + + | Glucose, | 116 (A) | 70 - 100 | EXTERNAL | | | External | | | LAB | | + +---------+ + + + + +---------+ + + | Performing | Address | City/State/Zipcode | Phone Number | | Organization | | | | + +---------+ + + | EXTERNAL LAB | | | | + +---------+ + + External Lab: ALT (12/08/2018) + +-------+ + + + | Component | Value | Ref Range | Performed | Pathologist | | | | | At | Signature | + +-------+ + + + | ALT, | 14 | 7 - 52 | EXTERNAL | | | External | | | LAB | | + +-------+ + + + + +---------+ + + | Performing | Address | City/State/Zipcode | Phone Number | | Organization | | | | + +---------+ + + | EXTERNAL LAB | | | | + +---------+ + + External Lab: AST (12/08/2018) + +-------+ + + + | Component | Value | Ref Range | Performed | Pathologist | | | | | At | Signature | + +-------+ + + + | AST, | 19 | 13 - 39 | EXTERNAL | | | External | | | LAB | | + +-------+ + + + + +---------+ + + | Performing | Address | City/State/Zipcode | Phone Number | | Organization | | | | + +---------+ + + | EXTERNAL LAB | | | | + +---------+ + + External Lab: Alkaline Phosphatase (12/08/2018) + +-------+ + + + | Component | Value | Ref Range | Performed | Pathologist | | | | | At | Signature | + +-------+ + + + | ALP, | 72 | 31 - 120 | EXTERNAL | | | External | | | LAB | | + +-------+ + + + + +---------+ + + | Performing | Address | City/State/Zipcode | Phone Number | | Organization | | | | + +---------+ + + | EXTERNAL LAB | | | | + +---------+ + + External Lab: Bilirubin, Total (12/08/2018) + +-------+ + + + | Component | Value | Ref Range | Performed | Pathologist | | | | | At | Signature | + +-------+ + + + | Bilirubin, | 0.3 | 0 - 1.2 | EXTERNAL | | | Total, | | | LAB | | | External | | | | | + +-------+ + + + + +---------+ + + | Performing | Address | City/State/Zipcode | Phone Number | | Organization | | | | + +---------+ + + | EXTERNAL LAB | | | | + +---------+ + + External Lab: Albumin (12/08/2018) + +-------+ + + + | Component | Value | Ref Range | Performed | Pathologist | | | | | At | Signature | + +-------+ + + + | Albumin, | 4.0 | 3.5 - 5 | EXTERNAL | | | External | | | LAB | | + +-------+ + + + + +---------+ + + | Performing | Address | City/State/Zipcode | Phone Number | | Organization | | | | + +---------+ + + | EXTERNAL LAB | | | | + +---------+ + + External Lab: Protein, Total (12/08/2018) + +-------+ + + + | Component | Value | Ref Range | Performed | Pathologist | | | | | At | Signature | + +-------+ + + + | Protein, | 6.9 | 6 - 8.3 | EXTERNAL | | | Total, | | | LAB | | | External | | | | | + +-------+ + + + + +---------+ + + | Performing | Address | City/State/Zipcode | Phone Number | | Organization | | | | + +---------+ + + | EXTERNAL LAB | | | | + +---------+ + + External Lab: Phosphorus (12/08/2018) + +-------+ + + + | Component | Value | Ref Range | Performed | Pathologist | | | | | At | Signature | + +-------+ + + + | Phosphorus, | 2.5 | 2.5 - 5 | EXTERNAL | | | External | | | LAB | | + +-------+ + + + + +---------+ + + | Performing | Address | City/State/Zipcode | Phone Number | | Organization | | | | + +---------+ + + | EXTERNAL LAB | | | | + +---------+ + + External Lab: Magnesium (12/08/2018) + +-------+ + + + | Component | Value | Ref Range | Performed | Pathologist | | | | | At | Signature | + +-------+ + + + | Magnesium, | 2.0 | 1.7 - 2.5 | EXTERNAL | | | External | | | LAB | | + +-------+ + + + + +---------+ + + | Performing | Address | City/State/Zipcode | Phone Number | | Organization | | | | + +---------+ + + | EXTERNAL LAB | | | | + +---------+ + + External Lab: Calcium (12/08/2018) + +-------+ + + + | Component [...] +---------+ + + External Lab: Carbon Dioxide (12/08/2018) + +-------+ + + + | Component [...] + +---------+ + + External Lab: Chloride (12/08/2018) + +-------+ + + + | Component | Value | Ref Range | Performed | Pathologist | | | | | At | Signature | + +-------+ + + + | Chloride, | 104 | 95 - 112 | EXTERNAL | | | External | | | LAB | | + +-------+ + + + + +---------+ + + | Performing | Address | City/State/Zipcode | Phone Number | | Organization | | | | + +---------+ + + | EXTERNAL LAB | | | | + +---------+ + + External Lab: Potassium (12/08/2018) + +-------+ + + + | Component | Value | Ref Range | Performed | Pathologist | | | | | At | Signature | + +-------+ + + + | Potassium, | 4.5 | 3.6 - 5.1 | EXTERNAL | | | External | | | LAB | | + +-------+ + + + + +---------+ + + | Performing | Address | City/State/Zipcode | Phone Number | | Organization | | | | + +---------+ + + | EXTERNAL LAB | | | | + +---------+ + + External Lab: Sodium (12/08/2018) + +-------+ + + + | Component | Value | Ref Range | Performed | Pathologist | | | | | At | Signature | + +-------+ + + + | Sodium, | 137 | 132 - 143 | EXTERNAL | | | External | | | LAB | | + +-------+ + + + + +---------+ + + | Performing | Address | City/State/Zipcode | Phone Number | | Organization | | | | + +---------+ + + | EXTERNAL LAB | | | | + +---------+ + + External Lab: eGFR (12/08/2018) + +-------+ + + + | Component | Value | Ref Range | Performed | Pathologist | | | | | At | Signature | + +-------+ + + + | eGFR, | 27 | | EXTERNAL | | | External [...] + +---------+ + + External Lab: Creatinine (12/08/2018) + + + + + + | Component | Value | Ref Range | Performed | Pathologist | | | | | At | Signature | + + + + + + | Creatinine, | 2.29 (A) | 0.7 - 1.11 | EXTERNAL [...]
--- OUTSIDE RECORDS SUMMARY | ~2019-10-02 | XMS | Encounter Summary ---
Demographics + + + | Address | [address] | | | [place] [address] | + + + | Home Phone | | + + + | Preferred Language | Unknown | + + + | Marital Status | | + + + | Alevism Affiliation | 1077 | + + + | Race | Unknown | + + + | Ethnic Group | Unknown | + + + Author + + + | Author | [facility] | | | and [place] | + + + | Organization | [facility] | | [...] Team Providers + +------+ + | Care Senior Game Designer Name | Role | Phone | + +------+ + | Osbaldo Wood MD | PCP | | + +------+ + Encounter Details +--------+ + + + + | Date | Type | Department | Care Team | Description | +--------+ + + + + | 11// | Abstract | [facility] | Provider, | | | 2019 | | CARDIOLOGY [address] | MD Angela Timmy | | | | | [place], | [place] | | | | | [place] [address] | [place] [address] | | | | | [phone] | | | +--------+ + + + [...] [place], | | | | | | [place] [address] | | | | | | [phone] | | | | | | | [...]
--- OUTSIDE RECORDS SUMMARY | ~2019-10-02 | XMS | Encounter Summary ---
Demographics + + + | Address | [address] | | | [place] [address] | + + + | Home Phone | | + + + | Preferred Language | Unknown | + + + | Marital Status | | + + + | Uatsdin Affiliation | 1077 | + + + | Race | Unknown | + + + | Ethnic Group | Unknown | + + + Author + + + | Author | [facility] | | | and [place] | + + + | Organization | [facility] | | [...] Team Providers + +------+ + | Care Hands Assembler Name | Role | Phone | [...] | | | | | | | [place] | | | | | | [...] + + | 07/30/ | Surgery | [facility] | Sony Oconnell MD | Cyber Laser | | 2014 | | MED CTR OR INTRA OP | [address] | Vaporization of the | | | | [address] | [place], [place] | Prostate | | | | [place], [place] | [address] | | | | | [address] | [phone] | | | | | [phone] | | | +--------+---------+ + + + [...] catheter or urethra (at tip of penis) [id number] [employer]. [address] [place] [address], [place] [address]. All righ ts reserved. This information is [...] [place], | | | | | | [place] [address] | | | | | | [phone] | | | | | | | [...]
--- OUTSIDE RECORDS SUMMARY | ~2019-10-02 | XMS | Encounter Summary ---
Demographics + + + | Address | [address] | | | [place] [address] | + + + | Home Phone | | + + + | Preferred Language | Unknown | + + + | Marital Status | | + + + | Episcopalian Affiliation | 1077 | + + + [...] Team Providers + +------+ + | Care Second Time Worker Name | Role | Phone | + [...] | | | | | | | [place] | | | | | | [...] | | | | | [address] | [place] | | | | | [place] | [address] | | | | | [address] | [phone] | | | | | [phone] | | | +--------+ + + + [...] [place], | | | | | | [place] [address] | | | | | | [phone] | | | | | | | [...]
--- OUTSIDE RECORDS SUMMARY | ~2019-10-02 | XMS | Encounter Summary ---
Demographics + + + | Address | [address] | | | [place] ENGINEERING [place] [address] | + + + | Home Phone | | + + + | Preferred Language | Unknown | + + + | Marital Status | | + + + | Sikhism Affiliation | 1077 | + + + | Race | Unknown | + + + | Ethnic Group | Unknown | + + + Author + + + | Author | [facility] | | | and [place] | + + + | Organization | [facility] | | | and [...] Team Providers + +------+ + | Care Trial Court Judge Name | Role | Phone | + +------+ + | Osbaldo Wood MD | PCP | | + +------+ + Encounter Details +--------+ + + + + | Date | Type | Department | Care Team | Description | +--------+ + + + + | 02/12/ | Orders Only | [facility] | Estevan De La Rosa | | | 2013 | | NEPRHOLOGY [place] | MD [address] | | | | | [address] | [address] | | | | | [address] [place], [place] | [place] | | | | | [address] | [address] | | | | | [phone] | [phone] | | | | | | | [...] 2019 | Visit | | [address] | | | | | | [place], | | | | | | [place] [address] | | | | | | [phone] | | | | | | | [...] | | | LAB | | | [facility] | | | | | + +-------+ [...]
--- OUTSIDE RECORDS SUMMARY | ~2019-10-02 | XMS | Encounter Summary ---
Demographics + + + | Address | [address] | | | [place] [address] | + + + | Home Phone | | + + + | Preferred Language | Unknown | + + + | Marital Status | | + + + | Amish Affiliation | 1077 | + + + | Race | Unknown | + + + | Ethnic Group | Unknown | + + + Author + + + | Author | [facility] | | | and [place] | + + + | Organization | [facility] | | | and [...] Team Providers + +------+ + | Care High Risk Ob Name | Role | Phone | + +------+ + | Osbaldo Wood MD | PCP | | + +------+ + Reason for Visit + + + | Reason | Comments | + + + | Medication Refill | | + + + Encounter Details +--------+--------+ + + + | Date | Type | Department | Care Team | Description | +--------+--------+ + + + | 10/09/ | Refill | [facility] | Hans Blanco, | Medication Refill | | 2018 | | CARDIOLOGY [address] | [address] | | | | | [place], | [place], | | | | | [place] [address] | [place] [address] | | | | | [phone] | [phone] | | | | | | | | +--------+--------+ + + + Social History + +-------+ [...] | | | | | [place], | | | | | | [place] [address] | | | | | | [phone] | | | | | | | | +--------+---------+ + + + documented as of this encounter Visit Diagnoses Not on filedocumented in this encounter"
--- OUTSIDE RECORDS SUMMARY | ~2019-10-02 | XMS | Encounter Summary ---
Demographics + + + | Address | [address] | | | [place] [address] | + + + | Home Phone | | + + + | Preferred Language | Unknown | + + + | Marital Status | | + + + | Uatsdin Affiliation | 1077 | + + + | Race | Unknown | + + + | Ethnic Group | Unknown | + + + Author + + + | Author | [facility] | | | and [place] | + + + | Organization | [facility] | | | and [place] | + + + | Address | Unknown | + + + | Phone | Unavailable | + + + Support + + +---------+ + | Name | Relationship | Address | Phone | + + +---------+ + | Rhona Pinon | ECON | Unknown | | + + +---------+ + | Rhona Jn Kathrin | ECON | Unknown | | + + +---------+ + Care Team Providers + +------+ + | Care Rock Splitter Name | Role | Phone | + +------+ + | Osbaldo Wood MD | PCP | | + +------+ + Reason for Visit + + + | Reason | Comments | + + + | Blood Pressure Check | Blood pressure log from 08/01-08/14. | | (Screening) | | + + + Encounter Details +--------+ + + + + | Date | Type | Department | Care Team | Description | +--------+ + + + + | 08/20/ | Telephone | [facility] | Hans Blanco, | Blood Pressure Check | | 2020 | | CARDIOLOGY [address] | MD [address] [facility] | (Screening) (Blood | | | | [place], | [place], | pressure log from | | | | [place] [address] | [place] [address] | 08/01-08/14.) | | | | [phone] | [phone] | | | | | | | [...] | | | | | | [place] [address] | | | | | | [phone] | | | | | | | | +--------+---------+ + + + documented as of this encounter Visit Diagnoses Not on filedocumented in this encounter"
--- OUTSIDE RECORDS SUMMARY | ~2019-10-02 | XMS | Encounter Summary ---
Demographics + + + | Address | [address] | | | [place] [address] | + + + | Home Phone | | + + + | Preferred Language | Unknown | + + + | Marital Status | | + + + | Rastafari Affiliation | 1077 | + + + | Race | Unknown | + + + | Ethnic Group | Unknown | + + + Author + + + | Author | [facility] | | | and [place] | + + + | Organization | [facility] | | | and [place] | + [...] Team Providers + +------+ + | Care Professional Bass Fisherman Name | Role | Phone | + +------+ + PCP | Unavailable | + +------+ + Encounter Details +--------+ + + + + | Date | Type | Department | Care Team | Description | +--------+ + + + + | 05/11/ | Hospital | [facility] | Sony Oconnell MD | | | 2010 | Encounter | MED [facility] OP | [address] | | | | | [address] | [place], [place] | | | | | [place], [place] | [address] | | | | | [address] | [phone] | | | | | [phone] | | | +--------+ + + + [...] [place], | | | | | | [place] [address] | | | | | | [phone] | | | | | | | | +--------+---------+ + + + documented as of this encounter Visit Diagnoses Not on filedocumented in this encounter"
--- OUTSIDE RECORDS SUMMARY | ~2019-10-02 | XMS | Encounter Summary ---
Demographics + + + | Address | [address] | | | [place] [address] | + + + | Home Phone | | + + + | Preferred Language | Unknown | + + + | Marital Status | | + + + | Hoahaoism Affiliation | 1077 | + + + [...] Team Providers + +------+ + | Care Social Service Agency Director Name | Role | Phone | [...] + | 10/09/ | Refill | [facility] | Hans Blanco, | Medication Refill | | 2018 | | CARDIOLOGY [address] | [address] [place] | | | | | [place], | [place], | | | | | [place] [address] | [place] [address] | | | | | [phone] | [phone] | | | | | | | [...] [place], | | | | | | [place] [address] | | | | | | [phone] | | | | | | | | +--------+---------+ + + + documented as of this encounter Visit Diagnoses Not on filedocumented in this encounter"
--- OUTSIDE RECORDS SUMMARY | ~2019-10-02 | XMS | Encounter Summary ---
Demographics + + + | Address | [address] | | | [place] [address] | + + + | Home Phone | | + + + | Preferred Language | Unknown | + + + | Marital Status | | + + + | Mandaeism Affiliation | 1077 | + + + | Race | Unknown | + + + | Ethnic Group | Unknown | + + + Author + + + | Author | [facility] | | | and [place] | + + + | Organization | [facility] | | | [...] Team Providers + +------+ + | Care Art Objects Repairer Name | Role | Phone | + [...] + + | 04/11/ | Office | [facility] | Hans Blanco, | Symptomatic | | 2018 | Visit | CARDIOLOGY [address] | [address] [facility] | bradycardia (Primary | | | | [place], | [place], | Dx); Syncope, | | | | [place] [address] | [place] [address] | unspecified syncope | | | | [phone] | [phone] | type | | | | | [...] daily. A prescription has been sent to [facility] pharmacy in [place]. Take blood pressure and pulse once in [...] a day. Since that time, patient reports h tammy has been feeling well. Patient is physically [...] RESULTS reviewed during visit today primarily from [facility]: LIPID No results found for: CHOL, TRIG, [...] is in a cla ss I of [place] [employer] functional class. There is bilateral [...] reviewed and edited this note. Sissy Mcmullen, Pack Worker Supervisor 04/11/2018 I, Hans Blanco MD, personally performed the services described in this documentation, as scribed in my presence and it is both accurate and complete. Sissy Mcmullen, Med Ass t 04/11/2018 10:58 Electronically signed by: Hans Blanco MD [facility] 04/11/2018 Portions of this chart may have been created with Supersonic voice recognition software. Occasi onal wrong-word or [...] | | | | | | [place] [address] | | | | | | [phone] | | | | | | | | +--------+---------+ + + + documented as of this encounter Visit Diagnoses + + | Diagnosis | + + | Symptomatic bradycardia - Primary Other specified cardiac dysrhythmias | + + | Syncope, unspecified syncope type | + + documented in this encounter
--- OUTSIDE RECORDS SUMMARY | ~2019-10-02 | XMS | Encounter Summary ---
Demographics + + + | Address | [address] | | | [place] [address] | + + + | Home Phone | | + + + | Preferred Language | Unknown | + + + | Marital Status | | + + + | Baptist Affiliation | 1077 | + + + [...] Team Providers + +------+ + | Care Binman Name | Role | Phone | + [...] | | FUNitin | [address] | [address] [place] [address] | | | | | Procedures | CATRACHITA ROMERO | [place] [address] | | | | | CLAIM MANAGER IN CLINIC | [place], | [place], | | | | | - [place] | [place] [address] | [place] [address] | | | | | CONSULTED IN | Phone: | Phone: | | | | | HOSPITAL | [phone] | [phone] | | | | | | Fax: | Fax: | | | | | | [phone] | [phone] | +--------+--------+ + + + + Encounter Details +--------+---------+ + + + | Date | Type | Department | Care Team | Description | +--------+---------+ + + + | 03/14/ | Office | [facility] | ShawncarlasamDarleenjustyna, | Symptomatic | | 2018 | Visit | CARDIOLOGY [address] | MD [address] [place] | bradycardia (Primary | | | | [place], | [place], | Dx); CAD, multiple | | | | [place] [address] | [place] [address] | vessel | | | | [phone] | [phone] | | | | | | | [...] 3 months Where to go for labs: [facility]- [address] [facility] Holter Monitor : 48 hour Date: Check-In [...] health until 03/08/2018 he was admitted to [facility] for syncope and bradycardia seen by Tyler [...] and lab reports on 03/08/2018-03/11/2018. Refer to plant and equipment worker. ASSESSMENT: 1. Bradycardia, irreversible, asymptomatic A. Echocardiogram [...] He is in a class I of [place] Heart Association functional class. There is no [...] reviewed and edited this note. Sissy Mcmullen, Linen Tech 03/14/2018 I, Callie Blanco MD, personally performed the services described in this documentation, as scribed in my presence and it is both accurate and complete. Sissy Mcmullen, Med Ass t 03/14/2018 8:57 Electronically signed by: Callie Blanco MD [facility] 03/14/2018 Portions of this chart may have been created with CX voice recognition software. Occasi onal wrong-word or [...] | | | | | | [place] [id number] | | | | | | [phone] | | | | | | | [...] Leyva | | | MD [place] READING SHRINKER: Callie Blanco MD | | | 48-HOUR [...] Signed by: Callie Blanco | | | [facility] 03/17/2018, 11:44 | | + [...] CALLIE | | | | | | ([id number]) on 03/14/2018 | | | | | [...] Coronary atherosclerosis of unspecified type of vessel, cabazon | | or graft | + + documented in this encounter
--- OUTSIDE RECORDS SUMMARY | ~2019-10-02 | XMS | Clinical Summary ---
Demographics + + + | Address | [address] | | | [place] [address] | + + + | Home Phone | | + + + | Preferred Language | Unknown | + + + | Marital Status | | + + + | Yarsanism Affiliation | 1077 | + + + [...] | + + +---------+ + | Rhona Ragsdale Kathrin | ECON | Unknown | | + + +---------+ + Care Team Providers + +------+ + | Care Sampling Theory Teacher Name | Role | Phone | + +------+ + | Ana Maria Yuan MD | PCP | | + +------+ + Allergies + [...] + + + + + + | Hydrocodone | Other (See Comments) | Medium | 07/29/19 | "I go into spasms" | | | | | 15 | | + + + + + + | Oxycodone | Other (See Comments) | Medium | 07/29/19 | "I go into spasms" | | | | | 15 | | + + + + + + | Tramadol | Other (See Comments) | Medium | 07/29/19 | "I go into spasms" | | | | | 15 | | + + + + + + | Tramadol | | | 03/09/20 | Caused spasms and | | | | | 18 | pt to be in hospital | + + + + + + Medications + + + +---------+------+------+-------+ | Medication | Sig | Dispensed | Refills | Star | End | Statu | | | | | | t | Date | s | | | | | | Date | | | + + + +---------+------+------+-------+ | cetirizine | Take 10 mg by mouth | | 0 | | | Activ | | (ZYRTEC) 10 mg | Daily. | | | | | e | | tablet | | | | | | | + + + +---------+------+------+-------+ | omeprazole | Take 40 mg by mouth | | 0 | | | Activ | | (PRILOSEC) 40 MG | every morning | | | | | e | | capsule | (before breakfast). | | | | | | + + + +---------+------+------+-------+ | Magnesium | Take 1 tablet by | | 0 | | | Activ | | Cl-Calcium Carbonate | mouth 2 times daily. | | | | | e | | (SLOW-MAG PO) | | | | | | | + + + +---------+------+------+-------+ | levothyroxine | Take 88 mcg by mouth | | 0 | | | Activ | | (SYNTHROID) 88 mcg | every morning | | | | | e | | tablet | (before breakfast). | | | | | | + + + +---------+------+------+-------+ | aspirin 325 mg EC | Take 325 mg by mouth | | 0 | | | Activ | | tablet | Daily. | | | | | e | + + + +---------+------+------+-------+ | allopurinol | Take 100 mg by mouth | | 0 | | | Activ | | (ZYLOPRIM) 100 mg | Daily. | | | | | e | | tablet | | | | | | | + + + +---------+------+------+-------+ | isosorbide | Take 30 mg by mouth | | 0 | | | Activ | | mononitrate (IMDUR) | Daily. Take one in | | | | | e | | 30 mg ER tablet | the morning and | | | | | | | | somtime takes one in | | | | | | | | the Evening if | | | | | | | | chest pain | | | | | | + + + +---------+------+------+-------+ | B Complex Vitamins | Take 1 tablet by | | 0 | | | Activ | | (B COMPLEX 1 PO) | mouth Daily. | | | | | e | + + + +---------+------+------+-------+ | nitroglycerin | Place 0.4 mg under | | 0 | | | Activ | | (NITROSTAT) 0.4 mg | the tongue every 5 | | | | | e | | SL tablet | minutes as needed | | | | | | | | for Chest pain. | | | | | | + + + +---------+------+------+-------+ | lisinopril | Take 1 tablet by | 60 | 0 | 10/0 | | Activ | | (PRINIVIL, ZESTRIL) | mouth 2 times daily. | tablet | | 2/20 | | e | | 20 mg tablet | | | | 18 | | | + + + +---------+------+------+-------+ | cloNIDine | Take 1 tablet by | 30 | 5 | 11/2 | | Activ | | (CATAPRES) 0.1 mg | mouth Daily as | tablet | | 8/20 | | e | | tablet | needed. For systolic | | | 18 | | | | | blood pressure of | | | | | | | | 160 or above | | | | | | + + + +---------+------+------+-------+ | amLODIPine | TAKE ONE TABLET BY | 90 | 3 | 05/0 | | Activ | | (NORVASC) 5 mg | MOUTH DAILY | tablet | | 2/20 | | e | | tablet | | | | 19 | | | + + + +---------+------+------+-------+ | gabapentin | Take 300 mg by mouth | | 0 | | | Activ | | (NEURONTIN) 300 mg | nightly. | | | | | e | | capsule | | | | | | | + + + +---------+------+------+-------+ | acetaminophen | Place 650 mg | | 0 | | | Activ | | (TYLENOL) 650 mg | rectally every 4 | | | | | e | | suppository | hours as needed for | | | | | | | | Fever. | | | | | | + + + +---------+------+------+-------+ | torsemide | Take 1 tablet by | 30 | 5 | 02/2 | | Activ | | (DEMADEX) 10 mg | mouth Daily. | tablet | | 1/20 | | e | | tablet | | | | 20 | | | + + + +---------+------+------+-------+ | rosuvastatin | Take 1 tablet by | 30 | 5 | 02/2 | | Activ | | (CRESTOR) 20 mg | mouth nightly. | tablet | | 1/20 | | e | | tabletIndications: | | | | 20 | | | | CAD, multiple vessel | | | | | | | + + + +---------+------+------+-------+ | potassium 99 mg | Take 1 tablet by | | 0 | 03/0 | | Activ | | tablet | mouth Daily. | | | 2/20 | | e | | | | | | 20 | | | + + + +---------+------+------+-------+ Active Problems + + + | Problem | Noted Date | + + + | Syncope | 03/08/2018 | + + + | Symptomatic bradycardia | 03/08/2018 | + + + + + | Overview: Echocardiogram done on 03/17/18 shows the | | predominant rhythm is sinus with HR between 58 to 98 bpm, the | | average HR was 72 bpm during the 48:03 hour recording, there were | | occasional PVC's (519 total, mean 10.8/hr) with 11 couplets and | | no triplets, there were very rare PAC's (155 total, mean 3.2/hr), | | there were 54 episodes of bradycardia, the longest was 27 beats | | on Saturday 10:19, the minimum rate was 51 bpm on Saturday 00:56, | | there was no tachycardia, there was 1 pause of 2.o seconds on | | Saturday 00:05, diary was returned, no symptoms were reported. | + + + + + | 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 | 03/08/2018 | + + + | HTN (hypertension) | 03/08/2018 | + + + | Retention of urine | 07/30/2014 | + + + + + | Overview: ICD-10 Record update | + + + + + | Hypertrophy of prostate with urinary obstruction | 07/30/2014 | + + + | S/P CABG x 3 - 1990 | 07/30/2014 | + + + | Restless leg syndrome | 07/30/2014 | + + + | CVA (cerebral infarction) - Left Basal Ganglia | 05/10/2012 | + + + + + | Overview: lacunar left basal ganglia | | Problem list nurse assessor utility | + + + +---+ | CHF (congestive heart failure) | | + +---+ | CAD, multiple vessel | | + +---+ | Nonalcoholic steatohepatitis | | + +---+ | Ischemic cardiomyopathy - ECHO Jun 2014 EF 55-60% | | + +---+ + + | Overview: Echocardiogram 06/30/14 reports ejection fraction | | 55-60%, severely dilated left atrium, mild aortic stenosis, mild | | mitral regurgitation. | + + + +---+ | Polycythemia vera | | + +---+ | Diabetes | | + +---+ Encounters +--------+ + + + + | Date | Type | Specialty | Care Team | Description | +--------+ + + + + | 08/27/ | Office | Cardiology | Callie Blanco, | CAD, multiple vessel | | 2020 | Visit | | MD | (Primary Dx); | | | | | | Congestive heart | | | | | | failure, unspecified | | | | | | HF chronicity, | | | | | | unspecified heart | | | | | | failure type (HCC) | +--------+ + + + + | 08/24/ | Hospital | Radiology | Callie Blanco, | | | 2019 | Encounter | | | | +--------+ + + + + | 08/24/ | Hospital | Radiology | Callie Blanco, | CAD, multiple | 2019 | Encounter | | | vessel; Ischemic | | | | | | cardiomyopathy - | | | | [...] cardiomyopathy | +--------+ + + + + | 08/24/ | Hospital | Radiology | Callie Blanco, | CAD, multiple | 2019 | Encounter | | Resident Care Associate, | vessel; Ischemic | | | | | [facility] | cardiomyopathy - | | | | [...] | | | S/P CABG x 3 - 1990; | | | | | | Ischemic | | | | | | cardiomyopathy; S/P | | | | | | CABG x 3 | +--------+ + + + + | 08/24/ | Abstract | Cardiology | Provider, | | | 2019 | | | MD Angela | | +--------+ + + + + | 08/20/ | Telephone | Cardiology | Callie Blanco, | Blood Pressure Check | | 2019 | | | | (Screening) (Blood | | | | | | pressure log from | | | | | | 08/01-08/14.) | +--------+ + + + + | 08/05/ | Telephone | Cardiology | Callie Blanco, | Other (potassium | | 2019 | | | MD | dosage) | +--------+ + + + + | 07/31/ | Office | Cardiology | ShawnsabrinaCallie feliciano, | Symptomatic | | 2019 | Visit | | MD | bradycardia (Primary | | | | | | Dx); CAD, multiple | | | | | | vessel; Ischemic | | | | | | cardiomyopathy - | | | | [...] | | S/P CABG x 1990 | +--------+ + + + + | 07/31/ | Hospital | Lab | Callie Blanco, | | | 2020 | Encounter | | MD | | +--------+ + + + + | 07/31/ | Orders Only | Lab | Lena, | CAD, multiple | | 2020 | | | Trinh P, | vessel; Congestive | | | | | Lead Sustainability Specialist | heart failure, | | | | | | unspecified HF | | | | | | chronicity, | | | | | | unspecified heart | | | | | | failure type (HCC); | | | | | | Symptomatic | | | | | | bradycardia | +--------+ + + + + from Last 3 Months Social History + +-------+ +--------+------+ | Tobacco [...] | + + Last Filed Vital Signs + + + + + | Vital Sign | Reading | Time Taken | Comments | + + + + + | Blood Pressure | 128/62 | 08/28/2019 1:32 PM | | | | | PDT | | + + + + + | Pulse | 50 | 08/28/2019 1:32 PM | | | | | PDT | | + + + + + | Temperature | 35.8 C (96.4 F) | 03/11/2018 7:30 AM | | | | | PDT | | + + + + + | Respiratory Rate | 16 | 08/28/2019 1:32 PM | | | | | PDT | | + + + + + | Oxygen Saturation | 96% | 03/11/2018 7:30 AM | | | | | PDT | | + + + + + | Inhaled Oxygen | - | - | | | Concentration | | | | + + + + + | Weight | 100.5 kg (221 lb 9 | 08/28/2019 1:32 PM | | | | oz) | PDT | | + + + + + | Height | 185.4 cm (6' 1") | 08/28/2019 1:32 PM | | | | | PDT | | + + + + + | Body Mass Index | 29.23 | 08/28/2019 1:32 PM | | | | | PDT | | + + + + + Plan of Treatment +--------+---------+ + + + | Date | Type | Specialty | Care Team | Description | +--------+---------+ + + + | 02/25/ | Office | Cardiology | Callie Blanco, | | | 2019 | Visit | | [address] [facility] | | | | | | [place], | | | | | | [place] [address] | | | | | | [phone] | | | | | | | | +--------+---------+ + + + + + + + + | Health Maintenance | Due Date | Last Done | Comments | + + + + + | Vaccine: | | | | | Dtap/Tdap/Td (1 - | 6 | | | | Tdap) | | | | + + + + + | Diabetic Eye Exam | | | | | | 3 | | | + + + + + | Diabetic Foot Exam | | | | | | 3 | | | + + + + + | Vaccine: | | | | | Pneumococcal 65+ (1 | 0 | | | | of 2 - PCV13) | | | | + + + + + | Vaccine: Zoster (2 | | 04/08/2007 | | | of 3) | 7 | | | + + + + + | Adult Annual | | | | | Wellness Visit | 8 | | | + + + + + | Hemoglobin A1c | | 03/10/2018, 09/08/2014, | | | Screening | 9 | 11/16/2013 | | + + + + + | Vaccine: Influenza | | 03/27/2018, 03/20/2017, | | | (Season Ended) | 0 | 03/20/2010 | | + + + + + Procedures + +--------+ + + + | [...] section. | + +--------+ + + + from Last 3 Months Results NM Nuclear Stress Test (Vasodilator) (08/25/2019 [...] | | | | | | n [place] | | | | | + +--------+ [...] | + +---------+ + + External Lab: BUN (08/24/2019) + [...] unspecified provider. | | + + + Basic Metabolic Panel (08/24/2019)Only the most recent of 2 results within the time period is included. + +-------+ + + + | Component [...] Blood | + + CBC with Differential (07/31/2019 2:51 [...] | | | Neutrophils | | | [facility] | | | | | | [facility] | | | | | | CENTER - | | | | | | LABORATORY | | + + + + + + | % | 28.7 | 20.0 - 45.0 % | [facility] | | | Lymphocytes | | | [facility] | | | | | | MEDICAL | | | | | | CENTER - | | | | | | LABORATORY | | + + + + + + | % Monocytes | 11.7 | 4.0 - 12.0 % | [facility] | | | | | | [facility] | | [...] | Lymphocytes | | K/uL | [facility] | | | | | | MEDICAL | | | | | | CENTER - | | | | | | LABORATORY | | + + + + + + | Absolute | 0.78 | 0.00 - 1.00 | [facility] | | | Monocytes | | K/uL | [facility] | [...] | | Basophils | | K/uL | [facility] | [...] + | [facility] | [address] | [place] | [phone] | | [facility] | | [address] | | | - LABORATORY | | [...] | | | | uIU/mL | [facility] | | | | [...] + | [facility] | [address] | [place] | [phone] | | [facility] | | [address] | | | - LABORATORY | | [...] 203 (H)Comment: New | <100 pg/mL | [facility] | | | | method in use [...] [address] | [place] | [phone] | | [facility] | | [address] | | | - LABORATORY | | | | + + + + + ECG 12 lead (07/31/2019 1:47 PM PST) + + + + + + | Component | Value | Ref Range | Performed | Pathologist | | | | | At | Signature | + + + + + + | VENTRICULAR | 59 | BPM | [facility] | | | RATE EKG | | | | | + + + + + + | ATRIAL RATE | 59 | BPM | [facility] | | + + + + [...] by | | | | | | KRYSTYNA SIMMONS, CALLIE | | | | | | ([id number]) on 07/31/2019 | | | | | [...] | | | + +---------+ + + from Last 3 Months Insurance + +--------+ +--------+ +---------+--------+ | Payer | Benefi | Subscriber | Effect | Phone | Address | Type | | | t Plan | ID | malik | | | | | | / | | Dates | | | | | | Group | | | | | | + +--------+ +--------+ +---------+--------+ | MEDICARE | MEDICA | [id number] | 08/09/19 | [phone] | | Medica | | | RE | | 11-Pre | 5 | | re | | | PART A | | sent | | | | | | AND B | | | | | | + +--------+ +--------+ +---------+--------+ | CIGNA | CIGNA | [id number] | | [phone] | | Indemn | | | MDCR | | 018-Pr | 1 | | ity | | | SUPPLE | | esent | | | | | | MENT | | | | | | | | SOLUTI | | | | | | | | ONS | | | | | | + +--------+ +--------+ +---------+--------+ + +--------+ +--------+ + + | Guarantor Name | Accoun | Relation to | Date | Phone | Billing Address | | | t Type | Patient | of | | | | | | | | | | + +--------+ +--------+ + + | Wilmer Pinon | Person | Self [birth year] | [address] | | | al/Fam | | 1936 | [phone] | [place] [address] | | | [place] | | | 1 (Home) | | + +--------+ +--------+ + + Advance Directives + + + + + | Type | Date Recorded | Patient | Explanation | | | | Nuclear Powerplant Supervisor | | + + + + + | Power of | | | | | Casting House Laborer | | | | + + + + + | Power of | | | | | Casting House Laborer | | | | + + + + + | Advance | 07/30/2014 10:38 | | Adv Dir. & Durable Power of | | Directive | AM | | Casting House Laborer for Health Care | + + + + + + + + + + | Code Status | Date | Date | Comments | | | Activated | Inactivated | | + + + + + | Partial | 03/10/2018 | 03/11/2018 | | | Code | 10:03 PM | 12:20 PM | | + + + + + + + +---+ | Rescue breathing via AMBU/Bag | No | | | valve mask: | | | + + +---+ | BiPAP/CPAP: | Yes | | + + +---+ | Intubation/mechanical | No | | | ventilation: | | | + + +---+ | Chest compressions: | No | | + + +---+ | Electrical shock for | No | | | resuscitation: | | | + + +---+ | ACLS/PALS/NRP Protocol Meds: | Yes | | + + +---+ | Vasopressors: | Yes | | + + +---+ | RN or MD to pronounce: | RN may | | | | pronounce | | + + +---+ + + + +---+ | | | | | + + + +---+ | Partial | 03/08/2018 | 03/10/2018 | | | Code | 6:27 PM | 10:03 PM | | + + + +---+ + + +---+ | Rescue breathing via AMBU/Bag | No | | | valve mask: | | | + + +---+ | BiPAP/CPAP: | Yes | | + + +---+ | Intubation/mechanical | No | | | ventilation: | | | + + +---+ | Chest compressions: | No | | + + +---+ | Electrical shock for | No | | | resuscitation: | | | + + +---+ | ACLS/PALS/NRP Protocol Meds: | No | | + + +---+ | Vasopressors: | Yes | | + + +---+ | RN or MD to pronounce: | RN may | | | | pronounce | | + + +---+ + + + +---+ | | | | | + + + +---+ | Full Code | 07/30/2014 | 07/30/2014 | | | | 2:02 PM | 6:29 PM | | + + + +---+
--- OUTSIDE RECORDS SUMMARY | ~2019-10-02 | XMS | Encounter Summary ---
Demographics + + + | Address | [address] | | | [place]TE DELIVERY DR[place] [address] | + + + | Home Phone | | + + + | Preferred Language | Unknown | + + + | Marital Status | | + + + | Yazidism Affiliation | 1077 | + + + [...] Team Providers + +------+ + | Care Delivery Recruiter Name | Role | Phone | + +------+ + | Osbaldo Wood MD | PCP | | + +------+ + Encounter Details +--------+ + + + + | Date | Type | Department | Care Team | Description | +--------+ + + + + | 02/27/ | Orders Only | [facility] | Conversion | | | 2015 | | CARDIOLOGY MARIBEL | Transaction, | | | | | [address] | Provider Unknown | | | | | [place], [place] | [phone] | | | | | [address] | | | | | | [phone] | | | +--------+ + + + [...] | 2019 | Visit | | [address] | | | | | | [place], | | | | | | [place] [address] | | | | | | [phone] | | | | | | | [...] | + +---------+ + + External Lab: CHIQUITA (09/08/2014 9:36 AM PDT) + + + [...] + + + | Red Blood | 4.57 | 4.3 - 5.7 10 [...] + + + | Red Blood | 4.48 | 4.3 - 5.7 10 [...] + + + | Red Blood | 4.49 | 4.3 - 5.7 10 [...]
--- OUTSIDE RECORDS SUMMARY | ~2019-10-02 | XMS | Encounter Summary ---
Demographics + + + | Address | [address] | | | [place] [address] | + + + | Home Phone | | + + + | Preferred Language | Unknown | + + + | Marital Status | | + + + | Taoism Affiliation | 1077 | + + + | Race | Unknown | + + + | Ethnic Group | Unknown | + + + Author + + + | Author | [facility] | | | and [place] | + + + | Organization | [facility] | | | and [...] Team Providers + +------+ + | Care Color Print Inspector Name | Role | Phone | [...] + + + + | 07/30/ | Hospital | [facility] | Sony Oconnell MD | | | 2015 | Encounter | MED CTR OR INTRA OP | [address] [facility] | | | | | [address] | [place] | | | | | [place] | [address] | | | | | [address] | [phone] | | | | | [phone] | | | +--------+ + + + [...] catheter or urethra (at tip of penis) [id number] [facility]. [address] [place] [address], [place] [address]. All righ ts reserved. This information is [...] + documented as of this encounter Progress Ashlyn Barillas RN - 07/30/2014 3:40 PM PSTVoided 200cc of clear light red/orange urine . Slight burning at start. Ashlyn Dave RN - 07/30/2014 3:18 PM PSTUp to bathroom to try voiding.Karen yepez signed by Ashlyn Bneitez RN at 07/30/2014 3:19 PM PSTdocumented in this encounter Plan of Treatment +--------+---------+ + + + | Date | Type | Specialty | Care Team | Description | +--------+---------+ + + + | 02/25/ | Office | Cardiology | ShawncarlasamHans, | | | 2019 | Visit | | [address] | | | | | | [place], | | | | | | [place] [address] | | | | | | [phone] | | | | | | | [...] | | | of | | | 07/22/ | | | 2014 @ | | | 1021 | +---+--------+ | | | | | Specia | | | l | | | Needs | | | | | | Wavefo | | | rm | +---+--------+ documented in this encounter Visit Diagnoses Not on filedocumented in this encounter Admitting Diagnoses + + [...] | nd Left | | Transdermal, ONCE, Sat07/30/14 at | | AM PST | | [...]
--- OUTSIDE RECORDS SUMMARY | ~2019-10-02 | XMS | Encounter Summary ---
Demographics + + + | Address | [address] | | | INFORMATION STRATEGIST [place] [address] | + + + | Home Phone [...] Team Providers + +------+ + | Care Quarry Plant Crusher Operator Name | Role | Phone | [...] + + | 04/11/ | Office | [facility] | Hans Blanco, | Symptomatic | | 2018 | Visit | CARDIOLOGY [address] | [address] [facility] | bradycardia (Primary | | | | [place], | [place], | Dx); Syncope, | | | | [place] [address] | [place] [address] | unspecified syncope | | | | [phone] | [phone] | type | | | | | [...] daily. A prescription has been sent to [facility] pharmacy in [place]. Take blood pressure and pulse once in [...] RESULTS reviewed during visit today primarily from [facility]: LIPID No results found for: CHOL, [...] is in a cla ss I of [place] [facility] Association functional class. There is bilateral [...] reviewed and edited this note. Sissy Mcmullen, Meter Repair Shop Supervisor 04/11/2018 I, Hans Blanco MD, personally performed the services described in this documentation, as scribed in my presence and it is both accurate and complete. Sissy Mcmullen, Med Ass t 04/11/2018 10:58 Electronically signed by: Hans Blanco MD [facility] 04/11/2018 Portions of this chart may have been created with S[employer] voice recognition software. Occasi onal wrong-word or [...] | | | | | | [place] [address] | | | | | | [phone] | | | | | | | | +--------+---------+ + + + documented as of this encounter Visit Diagnoses + + | Diagnosis | + + | Symptomatic bradycardia - Primary Other specified cardiac dysrhythmias | + + | Syncope, unspecified syncope type | + + documented in this encounter
--- OUTSIDE RECORDS SUMMARY | ~2019-10-02 | XMS | Clinical Summary ---
Demographics + + + | Address | [address] [facility] | | | [place] [address] | + + + | Home Phone | | + + + | Preferred Language | Unknown | + + + | Marital Status | | + + + | Mandaeism Affiliation | 1077 | + + + | Race | Unknown | + + + | Ethnic Group | Unknown | + + + Author + + + | Author | [facility] | | | and [place] | + + + | Organization | [facility] | | | [...] Team Providers + +------+ + | Care Relief Mate Name | Role | Phone | + [...] left basal ganglia | | Problem list shop coordinator utility | + + + +---+ | [...] multiple | 2019 | Encounter | | Supervisor Filter Assembly, | vessel; Ischemic | | | | [...] vessel; Congestive | | | | | Emergency Room Clinician | heart failure, | | | | [...] | 2019 | Visit | | [address] [facility] | | | | | | [place], | | | | | | [place] [address] | | | | | | [phone] | | | | | | | [...] | | | | | | n [place]ady | | | | | + +--------+ [...] + | [facility] | [address] | [place] | [phone] | | [facility] | | [address] | | | - LABORATORY | | [...] + | [facility] | [address] | [place] | [phone] | | [facility] | | [address] | | | - LABORATORY | | [...] 203 (H)Comment: New | <100 pg/mL | [facility] | | | | method in use [...] [address] | [place] | [phone] | | [facility] | | [address] | | | - LABORATORY | | [...] CALLIE | | | | | | ([id number]) on 07/31/2019 | | | | | [...] +--------+ +---------+--------+ | MEDICARE | MEDICA | [id number] | 08/09/19 | [phone] | | Medica | | | RE | | 11-Pre | 5 | | re | | | PART A | | sent | | | | | | AND B | | | | | | + +--------+ +--------+ +---------+--------+ | CIGNA | CIGNA | [id number] | | [phone] | | Indemn | [...] | | al/Fam | | 1936 | [phone] | [place] [address] | | | clifford | | | 1 (Home) | | + +--------+ +--------+ + + Advance Directives + + + + + | Type | Date Recorded | Patient | Explanation | | | | Camera Assembler | | + + + + + | Power of | | | | | Support Dba | | | | + + + + + | Power of | | | | | Support Dba | | | | + + + + + | Advance | 07/30/2014 10:38 | | Adv Dir. & Durable Power of | | Directive | AM | | Support Dba for Health Care | + + + [...]
--- OUTSIDE RECORDS SUMMARY | ~2019-10-02 | XMS | Encounter Summary ---
Demographics + + + | Address | [address] | | | [place] [address] | + + + | Home Phone | | + + + | Preferred Language | Unknown | + + + | Marital Status | | + + + | Sabianist Affiliation | 1077 | + + + | Race | Unknown | + + + | Ethnic Group | Unknown | + + + Author + + + | Author | [facility] | | | and [place] | + + + | Organization | [facility] | | | [...] Team Providers + +------+ + | Care Plug Overwrap Machine Tender Name | Role | Phone | + +------+ + | Osbaldo Wood MD | PCP | | + +------+ + Encounter Details +--------+ + + + + | Date | Type | Department | Care Team | Description | +--------+ + + + + | 02/27/ | Orders Only | [facility] | Conversion | | | 2015 | | CARDIOLOGY MARIBEL | Transaction, | | | | | [address] | Provider Unknown | | | | | [place], [place] | [phone] | | | | | [address] | | | | | | [phone] | | | +--------+ + + + [...] | 2019 | Visit | | [address] | | | | | | [place], | | | | | | [place] [address] | | | | | | [phone] | | | | | | | [...]
--- OUTSIDE RECORDS SUMMARY | ~2019-10-02 | XMS | Encounter Summary ---
Demographics + + + | Address | [address] | | | [place]ACKAGING [place]SEMBLER [place] [address] | + + + | Home Phone | | + + + | Preferred Language | Unknown | + + + | Marital Status | | + + + | Rastafarian Affiliation | 1077 | + + + | Race | Unknown | + + + | Ethnic Group | Unknown | + + + Author + + + | Author | [facility] | | | and [place] | + + + | Organization | [facility] | | | and [...] Team Providers + +------+ + | Care Systems Engineering Manager Name | Role | Phone | + +------+ + | Osbaldo Wood MD | PCP | | + +------+ + Encounter Details +--------+ + + + + | Date | Type | Department | Care Team | Description | +--------+ + + + + | 03/14/ | Hospital | [facility] | Hans Blanco, | Symptomatic | | 2018 | Encounter | MED CTR | [address] | bradycardia | | | | ELECTRODIAGNOSTICS | [place], | | | | | [address] [place] | [place] [address] | | | | | [place] [address] | [phone] | | | | | [phone] | | | +--------+ + + + [...] tablet by | 60 | 0 | // | | | (PRINIVIL, ZESTRIL) | mouth [...] | 0 | | | | SA (AMBAR HOPPER) | 3 times daily. | | | [...] | | | | | | [place] [address] | | | | | | [phone] | | | | | | | [...] Leyva | | | MD Israel READING ORACLE FUSION MIDDLEWARE DEVELOPER: Hans Blanco MD | | | 48-HOUR [...] Signed by: Hans Blanco | | | [facility] 03/17/2018, 11:44 | | + + [...]
--- OUTSIDE RECORDS SUMMARY | ~2019-10-02 | XMS | Encounter Summary ---
Demographics + + + | Address | [address] | | | [place] [place] [address] | + + + | Home Phone [...] + + | Author | [facility] | | | and [place] | + + + | Organization | [facility] | | | [...] Team Providers + +------+ + | Care Violin Restorer Name | Role | Phone | + [...] CAD, | MD Hans | [address] | | | | | multiple | [address] | [place], | | | | | vessel | [address] | [place] | | | | | Ischemic | [place], | [address] | | | | | cardiomyopat | [place] [address] | Phone: | | | | | hy | Phone: | [phone] | | | | | Congestive | [phone] | Fax: | | | | | heart | Fax: | [phone] | | | | | failure, | [phone] | | | | | | unspecified [...] CAD, | MD Hans | [address] | | | | | multiple | [address] | [place], | | | | | vessel | [address] | [place] | | | | | Ischemic | [place], | [address] | | | | | cardiomyopat | [place] [address] | Phone: | | | | | hy | Phone: | [phone] | | | | | Congestive | [phone] | Fax: | | | | | heart | Fax: | [phone] | | | | | failure, | [phone] | | | | | | unspecified [...] + + | 08/24/ | Hospital | [facility] | Hans Blanco, | CAD, multiple | | 2020 | Encounter | MED CTR ECHO [address] | MD [address] | vessel; Ischemic | | | | [address] [place] | [place], | cardiomyopathy - | | | | [place] [address] | [place] [address] | ECHO Jun 2014 EF | | | | [phone] | [phone] | 55-60%; Congestive | | | | [...] | 2019 | Visit | | [address] [facility] | | | | | | [place], | | | | | | [place] [address] | | | | | | [phone] | | | | | | | [...] | | | | | | n [place] | | | | | + +--------+ [...] Coronary atherosclerosis of unspecified type of vessel, cahuilla | | or graft | + + | Ischemic cardiomyopathy - ECHO Jun 2014 EF 55-60% Other specified forms of chronic | | ischemic heart disease | + + | Congestive heart failure, unspecified HF chronicity, unspecified heart failure type | | (HCC) | + + documented in this encounter"
--- OUTSIDE RECORDS SUMMARY | ~2019-10-02 | XMS | Encounter Summary ---
Demographics + + + | Address | [address] | | | [place] [address] | + + + | Home Phone | | + + + | Preferred Language | Unknown | + + + | Marital Status | | + + + | Religion Affiliation | 1077 | + + + | Race | Unknown | + + + | Ethnic Group | Unknown | + + + Author + + + | Author | [facility] | | | and [place] | + + + | Organization | [facility] | | [...] Team Providers + +------+ + | Care Cigar Making Supervisor Name | Role | Phone | + +------+ + | Osbaldo Wood MD | PCP | | + +------+ + Encounter Details +--------+ + + + + | Date | Type | Department | Care Team | Description | +--------+ + + + + | 07/31/ | Orders Only | [facility] | Benen, | CAD, multiple | | 2019 | | MED CTR LABORATORY | Trinh Taver[place], | vessel; Congestive | | | | [address] [place] | Metal Milling Machine Operator | heart failure, | | | | [place], [place] | | unspecified HF | | | | [address] | | chronicity, | | | | [phone] | | unspecified heart | | | [...] | | | | | | [place] [address] | | | | | | [phone] | | | | | | | [...] | | | | | M/uL | JAQUELIN | | | | | [...] + | [facility] | [address] | [place] | [phone] | | [facility] | | [address] | | | - LABORATORY | | [...] | | | | mmol/L | STYuli JAQUELIN | | | | [...] 2.04 (H) | 0.70 - 1.30 | [facility] [...] mL/min/1.73m2 | [facility] | | | [place] | RATE,ESTIMATED | | MEDICAL | | | | mL/min/1.12z0Glop than | | CENTER - | | [...] ST. | [address] | [place], [place] | [phone] | | [facility] | | [address] | | | - LABORATORY | | [...] | | | | uIU/mL | [facility] | | | | | [...] + | [facility] | [address] | [place] | [phone] | | [facility] | | [address] | | | - LABORATORY | | [...] 203 (H)Comment: New | <100 pg/mL | [facility] | | | | method in use as of | | [facility] | | | | August [...] ST. | [address] | [place] | [phone] | | [facility] | | [address] | | | - LABORATORY | | | | + + + + + documented in this encounter Visit Diagnoses + + | Diagnosis | + + | CAD, multiple vessel Coronary atherosclerosis of unspecified type of vessel, pitka's point | | or graft | + + | Congestive heart failure, unspecified HF chronicity, unspecified heart failure type | | (HCC) | + + | Symptomatic bradycardia Other specified cardiac dysrhythmias | + + documented in this encounter"
--- OUTSIDE RECORDS SUMMARY | ~2019-10-02 | XMS | Encounter Summary ---
Demographics + + + | Address | [address] | | | [place]AL C[place]TER [place] [address] | + + + | Home Phone | | + + + | Preferred Language | Unknown | + + + | Marital Status | | + + + | Jain Affiliation | 1077 | + + + | Race | Unknown | + + + | Ethnic Group | Unknown | + + + Author + + + | Author | [facility] | | | and [place] | + + + | Organization | [facility] | | | [...] Team Providers + +------+ + | Care Chocolate Coater Name | Role | Phone | + [...] + + | 08/20/ | Telephone | [facility] | Hans Blanco, | Blood Pressure Check | | 2020 | | CARDIOLOGY [address] | MD [address] [facility] | (Screening) (Blood | | | | [address] [place], | [place], | pressure log from | | | | [place] [address] | [place] [address] | 08/01-08/14.) | | | | [phone] | [phone] | | | | | | | [...] [place], | | | | | | [place] [address] | | | | | | [phone] | | | | | | | | +--------+---------+ + + + documented as of this encounter Visit Diagnoses Not on filedocumented in this encounter"
--- OUTSIDE RECORDS SUMMARY | ~2019-10-02 | XMS | Encounter Summary ---
Demographics + + + | Address | [address] | | | BUSINESS CONTINUITY [place]OR [place] [address] | + + + | Home Phone | | + + + | Preferred Language | Unknown | + + + | Marital Status | | + + + | Samaritan Affiliation | 1077 | + + + [...] Team Providers + +------+ + | Care Conversion Worker Name | Role | Phone | + +------+ + | Osbaldo Wood MD | PCP | | + +------+ + Encounter Details +--------+ + + + + | Date | Type | Department | Care Team | Description | +--------+ + + + + | 03/14/ | Hospital | [facility] | Hans Blanco, | Symptomatic | | 2018 | Encounter | MED CTR | [address] | bradycardia | | | | ELECTRODIAGNOSTICS | [place], | | | | | [address] [place] | [place] [address] | | | | | [place] [address] | [phone] | | | | | [phone] | | | +--------+ + + + [...] | | | | | | [place] [address] | | | | | | [phone] | | | | | | | [...] Leyva | | | MD [place] READING NURSING ASSISTANTS TEACHER: Hans Blanco MD | | | 48-HOUR [...] Signed by: Hans Blanco | | | [facility] 03/17/2018, 11:44 | | + [...]
--- OUTSIDE RECORDS SUMMARY | ~2019-10-02 | XMS | Encounter Summary ---
Demographics + + + | Address | [address] | | | [place] [address] | + + + | Home Phone | | + + + | Preferred Language | Unknown | + + + | Marital Status | | + + + | Mormonism Affiliation | 1077 | + + + [...] Team Providers + +------+ + | Care Ship Self Defense System Mk1 Operator Name | Role | Phone | [...] Congestive | | | | [address] [place] | Machine Installer | heart failure, | | | | [place], [place] | | unspecified HF | | | | [address] | | chronicity, | | | | [phone] | | unspecified heart | | | [...] | | | | | | [place] [address] | | | | | | [phone] | | | | | | | [...] + | [facility] | [address] | [place] | [phone] | | [facility] | | [address] | | | - LABORATORY | | [...] mL/min/1.73m2 | [facility] | | | [place] | RATE,ESTIMATED | | MEDICAL | | | | mL/min/1.79u8Sbid than | | CENTER - | | [...] ST. | [address] | [place], [place] | [phone] | | [facility] | | [address] | | | - LABORATORY | | [...] | | | | uIU/mL | [facility] | | | | | | MEDICAL [...] + | [facility] | [address] | [place] | [phone] | | [facility] | | [address] | | | - LABORATORY | | [...] 203 (H)Comment: New | <100 pg/mL | [place] | | | | method in use as of | | [facility] | | | | August [...] ST. | [address] | [place] | [phone] | | [facility] | | [address] | | | - LABORATORY | | | | + + + + + documented in this encounter Visit Diagnoses + + | Diagnosis | + + | CAD, multiple vessel Coronary atherosclerosis of unspecified type of vessel, nondalton | | or graft | + + | Congestive heart failure, unspecified HF chronicity, unspecified heart failure type | | (HCC) | + + | Symptomatic bradycardia Other specified cardiac dysrhythmias | + + documented in this encounter"
--- OUTSIDE RECORDS SUMMARY | ~2019-10-02 | XMS | Encounter Summary ---
Demographics + + + | Address | [address] | | | [place] [address] | + + + | Home Phone | | + + + | Preferred Language | Unknown | + + + | Marital Status | | + + + | Judaism Affiliation | 1077 | + + + [...] Team Providers + +------+ + | Care Digester Operator Helper Name | Role | Phone | [...] Authorized | | Cardiology | Diagnoses | Bhupendra, | Francis, | | | | | Presence of | Osbaldo Leyva, | MD Hans | | | | | | MD [address] | [address] | | | | | aortocoronar | [address] | [address] | | | | | y bypass | [place], | [place], | | | | | graft Heart | [place] [address] | [place] [address] | | | | | failure, | Phone: | Phone: | | | | | unspecified | [phone] | [phone] | | | | | (HCC) | Fax: | Fax: | | | | | Ischemic | [phone] | [phone] | | | | | cardiomyopat | | | | | | | hy | | | | | | | Atherosclero | | | | | | | tic heart | | | | | | | disease of | | | | | | | paskenta | | | | | | | [...] | | FOLLOW UP | | | + +--------+ + + + + Encounter Details +--------+---------+ + + + | Date | Type | Department | Care Team | Description | +--------+---------+ + + + | 08/27/ | Office | [facility] | Hans Blanco, | CAD, multiple vessel | | 2020 | Visit | CARDIOLOGY [address] | [address] [facility] [place] | (Primary Dx); | | | | [address] [place], | [place], | Congestive heart | | | | [place] [address] | [place] [address] | failure, unspecified | | | | [phone] | [phone] | HF chronicity, | | | | [...] documented as of this encounter Progress Notes Sissy Mcmullen, Electric Meter Installer Helper - 08/28/2019 1:30 PM PDT PATIENT NAME: Wilmer Pinon : 1935: [...] CABG x - 1990 Restless leg syndrome CURRENT MEDICATIONS [...] RESULTS reviewed during visit today primarily from [facility]: LIPID Lab Results Component Value Date [...] is in a class I o f [place] Heart Association functional class. There is bilateral [...] reviewed and edited this note. Sissy Mcmullen Headliner Installer 08/28/2019 I, Hans Blanco MD, personally performed the services described in this documentation, as scribed in my presence and it is both accurate and complete. Sissy Mcmullen Med Ass t 08/28/2019 1:34 PM Electronically signed by: Hans Blanco MD [facility] 08/28/2019 Portions of this chart may have been created with [employer] voice recognition software. Occasi onal wrong-word or [...] 2019 | Visit | | MD [address] | | | | | | [place], | | | | | | [place] [address] | | | | | | [phone] | | | | | | | | +--------+---------+ + + + documented as of this encounter Visit Diagnoses + + | Diagnosis | + + | CAD, multiple vessel - Primary Coronary atherosclerosis of unspecified type of | | vessel, paskenta or graft | + + | Congestive heart failure, unspecified HF chronicity, unspecified heart failure type | | (HCC) | + + documented in this encounter
--- OUTSIDE RECORDS SUMMARY | ~2019-10-02 | XMS | Clinical Summary ---
Demographics + + + | Address | [address] | | | [place] [address] | + + + | Home Phone | | + + + | Preferred Language | Unknown | + + + | Marital Status | Single | + + + | Denominational Affiliation | UNK | + + + | Race | Unknown | + + + | Ethnic Group | Other Race | + + + Author + + + | Author | [facility] | + + + | [...] Team Providers + +------+ + | Care Laboratory Technical Specialist Name | Role | Phone | + +------+ + PCP | Unavailable | + +------+ + Source Comments ANA is fully live on both [facility] and [facility] InPatient.[facility] Allergies Not on File Medications Not [...] | x | 18-Pre | 8 | [address] | | | | | | sent | | [place], | | | | | | | | [place] | | | | | | | | [address] | | + +--------+ +--------+ + +------+ [...] al/Fam | | 1936 | [phone] | ORDNANCE TRUCK INSTALLATION SUPERVISOR [place] [address] | | | [place] | | | 1 (Home) | | + +--------+ +--------+ + +"
--- OUTSIDE RECORDS SUMMARY | ~2019-10-02 | XMS | Encounter Summary ---
Demographics + + + | Address | [address] [facility] | | | [place] [address] | + + + | Home Phone | | + + + | Preferred Language | Unknown | + + + | Marital Status | | + + + | Jainism Affiliation | 1077 | + + + | Race | Unknown | + + + | Ethnic Group | Unknown | + + + Author + + + | Author | [facility] | | | and [place] | + + + | Organization | [facility] | | [...] Team Providers + +------+ + | Care Manager Respiratory Name | Role | Phone | + +------+ + | Osbaldo Wood MD | PCP | | + +------+ + Reason for Visit + + + | Reason | Comments | + + + | Blood Pressure | | + + + Encounter Details +--------+ + + + + | Date | Type | Department | Care Team | Description | +--------+ + + + + | 05/06/ | Telephone | [facility] | ShawncarlasamHans, | Blood Pressure | | 2018 | | CARDIOLOGY [address] | MD [address] [place] | | | | | [place], | [place], | | | | | [place] [address] | [place] [address] | | | | | [phone] | [phone] | | | | | | | [...] | | | | | | [place] [address] | | | | | | [phone] | | | | | | | | +--------+---------+ + + + documented as of this encounter Visit Diagnoses Not on filedocumented in this encounter"
--- OUTSIDE RECORDS SUMMARY | ~2019-10-02 | XMS | Encounter Summary ---
Demographics + + + | Address | [address] | | | [place] [address] | + + + | Home Phone | | + + + | Preferred Language | Unknown | + + + | Marital Status | Single | + + + | Buddhist Affiliation | UNK | + + + [...] Team Providers + +------+ + | Care Contract Specialist Name | Role | Phone | + +------+ + PCP | Unavailable | + +------+ + Encounter Details +--------+ + + + + | Date | Type | Department | Care Team | Description | +--------+ + + + + | 02/25/ | Results | | Other, Faculty | | | 2005 | Only | | [phone] | | +--------+ + + + + [...] | | | | | MNT) | [address] [address] | | | | | | [...] ANA | [address] | [place] [address] | | | DERMATOPATHOLOGY | [address] | | | + + + + + documented in this encounter Visit Diagnoses Not on filedocumented in this encounter"
--- OUTSIDE RECORDS SUMMARY | ~2019-10-02 | XMS | Encounter Summary ---
Demographics + + + | Address | [address] [facility] [address] [facility] | | | [place] [address] | + + + | Home Phone [...] Team Providers + +------+ + | Care It Integration Architect Name | Role | Phone | + [...] multiple | [address] | | | | | vessel | [address] | [place], | | | | | Ischemic | [place], | [place] | | | | | cardiomyopat | [place] [address] | [address] | | | | | hy | Phone: | Phone: | | | | | Congestive | [phone] | [phone] | | | | | heart | Fax: | Fax: | | | | | failure, | [phone] | [phone] | | | | | unspecified | [...] + + | 08/24/ | Hospital [facility] | BlancabasiaHans feliciano, | CAD, multiple | | 2020 | Encounter | MED CTR NUCLEAR | MD [address] [facility] [place], [place] | vessel; Ischemic | | | | MEDICINE [address] | [address] [place], | cardiomyopathy - | | | | [place], | [place] [address] | ECHO Jun 2014 EF | | | | [place] [address] | [phone] | 55-60%; Congestive | | | | [phone] | | heart failure, | | | | | [place] | unspecified HF | | | [...] | | | | | | [place] [address] | | | | | | [phone] | | | | | | | [...] Coronary atherosclerosis of unspecified type of vessel, havasupai | | or graft | + + [...]
--- OUTSIDE RECORDS SUMMARY | ~2019-10-02 | XMS | Encounter Summary ---
Demographics + + + | Address | [address] [facility] | | | [place] [address] | + + + | Home Phone [...] Providers + +------+ + | Care Research Associate Policy Name | Role | Phone | + [...] CAD, | MD Hans | [address] | | | | | multiple | [address] | [place], | | | | | vessel | [address] | [place] | | | | | Ischemic | [place], | [address] | | | | | cardiomyopat | [place] [address] | Phone: | | | | | hy | Phone: | [phone] | | | | | Congestive | [phone] | Fax: | | | | | heart | Fax: | [phone] | | | | | failure, | [phone] | | | | | | unspecified [...] CAD, | MD Hans | [address] | | | | | multiple | [address] | [place], | | | | | vessel | [address] | [place] | | | | | Ischemic | [place], | [address] | | | | | cardiomyopat | [place] [address] | Phone: | | | | | hy | Phone: | [phone] | | | | | Congestive | [phone] | Fax: | | | | | heart | Fax: | [phone] | | | | | failure, | [phone] | | | | | | unspecified [...] + + | 08/24/ | Hospital | [facility] | Hans Blanco, | CAD, multiple | | 2020 | Encounter | MED CTR ECHO [address] | MD [address] | vessel; Ischemic | | | | [place] | [address], | cardiomyopathy - | | | | [place] [address] | [place] [address] | ECHO Jun 2014 EF | | | | [phone] | [phone] | 55-60%; Congestive | | | | [...] Visit | | [address] [facility] | | | | | | [place], | | | | | | [place] [address] | | | | | | [phone] | | | | | | | [...] | | | | | | n [place] | | | | | + +--------+ [...] Coronary atherosclerosis of unspecified type of vessel, [place] | | or graft | + + | Ischemic cardiomyopathy - ECHO Jun 2014 EF 55-60% Other specified forms of chronic | | ischemic heart disease | + + | Congestive heart failure, unspecified HF chronicity, unspecified heart failure type | | (HCC) | + + documented in this encounter"
--- OUTSIDE RECORDS SUMMARY | ~2019-10-02 | XMS | Encounter Summary ---
Demographics + + + | Address | [address] [facility] [address] | | | [place] [address] | + + + | Home Phone | | + + + | Preferred Language | Unknown | + + + | Marital Status | | + + + | Yarsanism Affiliation | 1077 | + + + | Race | Unknown | + + + | Ethnic Group | Unknown | + + + Author + + + | Author | [facility] | | | and [place] | + + + | Organization | [facility] | | | [...] Team Providers + +------+ + | Care Rotor Balancer Name | Role | Phone | + [...] | | | | | | | [place] | | | | | | [...] + + | 07/30/ | Hospital | [facility] | Sony Oconnell MD | | | 2015 | Encounter | MED CTR OR INTRA OP | [address] [facility] | | | | | [address] | [facility] | | | | | [facility] | [address] | | | | | [address] | [phone] | | | | | [phone] | | | +--------+ + + + [...] catheter or urethra (at tip of penis) 2954-3765 [employer]. [address] [place] [address], [place] [address]. All righ ts reserved. This information is [...] to try voiding.Karen yepez signed by Ashlyn Benitez RN at 07/30/2014 [...] [place], | | | | | | [place] [address] | | | | | | [phone] | | | | | | | [...]
--- OUTSIDE RECORDS SUMMARY | ~2019-10-02 | XMS | Encounter Summary ---
Demographics + + + | Address | [address] [facility] [address] [facility] | | | [place] [address] | + + + | Home Phone | | + + + | Preferred Language | Unknown | + + + | Marital Status | | + + + | Latter-Day Affiliation | 1077 | + + + | Race | Unknown | + + + | Ethnic Group | Unknown | + + + Author + + + | Author | [facility] | | | and [place] | + + + | Organization | [facility] | | [...] Team Providers + +------+ + | Care Refining Still Operator Name | Role | Phone | + +------+ + | Osbaldo Wood MD | PCP | | + +------+ + Encounter Details +--------+ + + + + | Date | Type | Department | Care Team | Description | +--------+ + + + + | 11/16/ | Orders Only | [facility] | GenoDez Pat, | | | 2013 | | NEPRHOLOGY [place] | BEATER ROOM SUPERVISOR [address] | | | | | [address] | [address] [place], | | | | | [address] [place], [place] | [place] [address] | | | | | [address] | [phone] | | | | | [phone] | | | +--------+ + + + [...] | | | | | | [place] [address] | | | | | | [phone] | | | | | | | [...]
--- OUTSIDE RECORDS SUMMARY | ~2019-10-02 | XMS | Encounter Summary ---
Demographics + + + | Address | [address] [facility] [facility] | | | [place] [address] | + + + | Home Phone | | + + + | Preferred Language | Unknown | + + + | Marital Status | | + + + | Scientology Affiliation | 1077 | + + + [...] Team Providers + +------+ + | Care Violent Crimes Detective Name | Role | Phone | + +------+ + | Osbaldo Wood MD | PCP | | + +------+ + Encounter Details +--------+ + + + + | Date | Type | Department | Care Team | Description | +--------+ + + + + | 11/16/ | Orders Only | [facility] | GenoDez Pat, | | | 2013 | | NEPRHOLOGY [place] | GROCERY DELIVERER [address] | | | | | [address] | [address] [place], | | | | | [address] [place], [place] | [place] [address] | | | | | [address] | [phone] | | | | | [phone] | | | +--------+ + + + [...] | | | | | | [place] [address] | | | | | | [phone] | | | | | | | [...]
--- OUTSIDE RECORDS SUMMARY | ~2019-10-02 | XMS | Encounter Summary ---
Demographics + + + | Address | [address] [facility] | | | [place] [address] | + + + | Home Phone | | + + + | Preferred Language | Unknown | + + + | Marital Status | Single | + + + | Rastafarian Affiliation | UNK | + + + [...] Team Providers + +------+ + | Care Email Marketing Coordinator Name | Role | Phone | + +------+ + PCP | Unavailable | + +------+ + Encounter Details +--------+ + + + + | Date | Type | Department | Care Team | Description | +--------+ + + + + | 02/25/ | Results | | Other, Faculty | | | 2005 | Only | | [phone] | | +--------+ + + + + [...] | | | | | MNT) | [address] [address] | | | | | | [...] ANA | [address] | [place] [address] | | | DERMATOPATHOLOGY | [address] | | | + + + + + documented in this encounter Visit Diagnoses Not on filedocumented in this encounter"
--- OUTSIDE RECORDS SUMMARY | ~2019-10-02 | XMS | Encounter Summary ---
Demographics + + + | Address | [address] [facility] [address] | | | [place] [address] | + + + | Home Phone | | + + + | Preferred Language | Unknown | + + + | Marital Status | | + + + | Evangelical Affiliation | 1077 | + + + [...] Team Providers + +------+ + | Care Food Service Counter Clerk Name | Role | Phone | + +------+ + PCP | Unavailable | + +------+ + Encounter Details +--------+ + + + + | Date | Type | Department | Care Team | Description | +--------+ + + + + | 03/27/ | Hospital | [facility] | Conversion | 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 | [facility]ENTER | Transaction, | disease | | | | CLINICAL DECISION | Provider Unknown | | | 03/28/ | | [address] | [phone] | | | 2011 | | [place], [place] | | | | | | [address] | Mychal Salmeron MD | | | | | [phone] | [address] | | | | | | [place] [address] | | | | | | [phone] | | | | | | | [...] as of this encounter Discharge Summaries Mychal Salmeron MD - 03/28/2012 9:33 AM PDT Discharge Summaries by Mychal Salmeron MD at 03/28/12932 Author: Mychal Salmeron MD Service: Cardiology Author Type: Physician Filed: 03/29/12 3137 Date of Service: 03/28/12932 Status: Signed Soft Metals Engraver Hand: Mychal Salmeron MD (Physician) [facility] Service: Cardiology Discharge Summary Date of Admission: 03/27/2012 Date of Discharge: 03/28/2012 Discharge Physician: Mychal Salmeron MD Discharge Diagnoses: Hypertension Diabetes Hypercholesterolemia Coronary [...] of the right common femoral arteriotomy with 6-Mongolian Perclose closure device. 10. Angioplasty for saphenous vein graft to right posterior descending artery with 3 overla pping drug-eluting stents Promus Element Plus 2.75 x 38 mm, 3 x 32 mm, 3 x 38 mm distally to proximally. BRIEF HISTORY OF PRESENTATION: Wilmre Pinon 76 y.o. male with history of coronary artery disease with previous bypass tayla mihai x2, hypertension, hypercholesterolemia, diabetes, chronic kidney disease, who presented for evaluation of new onset of atypical unstable angina with accelerated chest pain with mi nimal exertion for the last 1 to 2 months, so he was referred for left heart catheterization . Cath showed: 1. Three [place] vessel disease. 2. Patent left internal mammary [...] DISCHARGE MEDICATIONS: Wilmer Pinon Home Medication Instructions JASPER:[id number] Printed on:03/28/12 9812 Medication Information metformin (GLUCOPHAGE) 500 MG tablet [...] FOLLOW UP: Please, follow up with Dr. Salmeron in 2-3 weeks. Disposition: Home Condition: Stable Code Status: Full Code Discharge took 20 minutes, to include final examination, discussion of admission, and prepa ration of prescriptions, instructions for on-going care, follow-up and documentation of disc harge summary. Mychal Salmeron MD 03/28/2012 documented in this enc ounter Progress Notes Conversion Transaction, Provider Unknown - 03/28/2012 10:34 AM PDTFormatting of this note m ight be different from the original. Progress Notes by Arelis Moreira RN at 03/28/121033 Author: Arelis Moreira RN Service: (none) Author Type: Registered Nurse Filed: 03/28/12 1037 Date of Service: 03/28/121033 Status: Signed Soft Metals Engraver Hand: Arelis Moreira RN (Registered Nurse) Patient and spouse denies questions or concerns at this time. One prescription given to maricel enedelia. Discharged ambulatory with spouse. onver rohini Transaction, Provider Unknown - 03/28/2012 9:19 AM PDT Progress Notes by JAIME Borden at 03/28/12918 Author: JAIME Borden Service: (none) Author Type: Director Of Outpatient Services Filed: 03/28/12918 Date of Service: 03/28/12918 Status: Signed Soft Metals Engraver Hand: JAIME Borden (Director Of Outpatient Services) CAR RECORD CLERK met mookie/ CHRISTIANO Navarrete Lead nurse, states no d/c needs or concerns. onver rohini Transaction, Provider Unknown - 03/27/2012 5:00 PM PDT Progress Notes by Britt Manuel RN at 03/27/121699 Author: Britt Manuel RN Service: (none) Author Type: Registered Nurse Filed: 03/27/121719 Date of Service: 03/27/121699 Status: Signed Soft Metals Engraver Hand: Britt Manuel RN (Registered Nurse) Patient ambulated [...] RPH Service: (none) Author Type: Pharmacist Filed: 03/27/12 1414 Date of Service: 03/27/121413 Status: Signed Soft Metals Engraver Hand: Tamir Nichols RPH (Pharmacist) Renal Dosing Monitoring: Wilmer Gauthier Pinon 76 y.o. male Pharmacy dosing for renal function per Dr. Salmeron Medication(s): none at this time Plan per protocol: CrCl = 58.8 ml/min SCr 1.4 Pharmacy will continue monitoring patient for appropriate dosing per renal function. 03/27/2012 2:12 PM Pharmacist: TAMIR NICHOLS onver rohini Bakeraction, Provider Unknown - 03/27/2012 1:45 PM PDT Progress Notes by Britt Manuel RN at 03/27/12 1349 Author: Britt Manuel RN Service: (none) Author Type: Registered Nurse Filed: 03/27/12 4046 Date of Service: 03/27/121344 Status: Signed Soft Metals Engraver Hand: Britt Manuel RN (Registered Nurse) Patient admit [...] | 2019 | Visit | | [address] [facility] | | | | | | [place], | | | | | | [place] [id number] | | | | | | [phone] | | | | | | | [...] common | | | femoral arteriotomy with 6-Mongolian Perclose closure device. 10. | | | [...] | | | was cannulized with a 6-Mongolian sheath. Right common femoral angiogram | | | was performed. Over a guidewire, a 6-Mongolian diagnostic JL4 catheter | | | advanced to the ascending aorta. Selectively engaging the left main, | | | contrast was injected, selective angiogram for the left main, LAD, | | | left circumflex artery performed. Over the guidewire, it was | | | exchanged for a 6-Mongolian diagnostic JR4 catheter. Selective engaging | | [...] exchange wire, it was exchanged for a 5-Mongolian IM catheter that | | | selectively engaged the BAILEY to the LAD. Contrast was injected, | | | selective angiogram for the BAILEY to the LAD performed in different | | | views. Over the guidewire, the IM catheter was exchanged for a | | | 6-Mongolian angled pigtail catheter that was advanced to the left | | | ventricle and left ventriculogram performed in the SERBIAN view. Then it | | | was pulled to the ascending aorta and ascending aortogram was | | | performed in the SERBIAN view. I noticed that there was only [...] was exchanged for a | | | 6-Mongolian JR4 guide that selectively engaged the stump of the SVG to | | | the right PDA. Using 180 cm Tower Dragline Operator 50 wire, I was able to advance the | | | wire down to the [place] right PDA. I first re-cannulized the graft | | | using multiple passes with 6-Mongolian [place] catheter that retrieved a | | | [...] distal SVG body and I pulled the Tower Dragline Operator wire. I predilated the SVG | | | using Tyrone RX balloon 2.5 x 20 mm at [...] Balloon was removed. Another pass with the [place] catheter was done | | | before [...] arteriotomy was closed using | | | 6-Mongolian Perclose closure device with good hemostasis. The [...] mL. | | | CONCLUSIONS 1. Three new [place] vessel disease. 2. Patent left internal | [...] | | | AICD. Read by MYCHAL SALMERON MD 03/27/2012 01:25 P | | | | | + + + + + | Procedure Note | + + | [facility] - 01/31/2019 4:21 AM PDT | | [...] of the right common femoral arteriotomy with 6-Mongolian Perclose | | closure device. | | [...] common femoral artery was cannulized with a 6-Mongolian | | sheath. Right common femoral angiogram was performed. Over a guidewire, a | | 6-Mongolian diagnostic JL4 catheter advanced to the ascending aorta. | | Selectively engaging the left main, contrast was injected, selective | | angiogram for the left main, LAD, left circumflex artery performed. Over | | the guidewire, it was exchanged for a 6-Mongolian diagnostic JR4 catheter. | | Selective engaging [...] exchange wire, it was exchanged for a 5-Mongolian IM catheter that | | selectively engaged the BAILEY to the LAD. Contrast was injected, selective | | angiogram for the BAILEY to the LAD performed in different views. Over the | | guidewire, the IM catheter was exchanged for a 6-Mongolian angled pigtail | | catheter that was advanced to the left ventricle and left ventriculogram | | performed in the SERBIAN view. Then it was pulled to the ascending aorta and | | ascending aortogram was performed in the SERBIAN view. | | | | I noticed [...] the pigtail catheter was exchanged for a 6-Mongolian JR4 | | guide that selectively engaged the stump of the SVG to the right PDA. | | Using 180 cm Tower Dragline Operator 50 wire, I was able to advance the wire down to the | | [place] right PDA. I first re-cannulized the graft using multiple passes | | with 6-Mongolian Carbond[place] catheter that retrieved a lot of red clot and JENNA-3 | | flow was established in the SVG to the right PDA. The SVG was diffusely | | diseased, so I decided to attempt angioplasty with stent. I put an EZ | | Filter 2.25 to 3 mm EZ Filter in the distal SVG body and I pulled the | | Tower Dragline Operator wire. I predilated the SVG using Tyrone RX balloon 2.5 x 20 mm at [...] removed. Another pass | | with the [place] catheter was done before retrieval of the filter. After | | the filter was retrieved using the retrieval device, a final angiogram was | | done showing JENNA-3 flow and 0% stenosis in the SVG to the right PDA. | | Next, the guide was removed and the sheath was removed. The arteriotomy | | was closed using 6-Mongolian Perclose closure device with good hemostasis. | [...] | | CONCLUSIONS | | 1. Three new [place] vessel disease. | | 2. Patent left [...] | | | | Read by MYCHAL SALMERON MD 03/27/2012 01:25 P | | | [...] common | | | femoral arteriotomy with 6-Mongolian Perclose closure device. 10. | | | [...] | | | was cannulized with a 6-Mongolian sheath. Right common femoral angiogram | | | was performed. Over a guidewire, a 6-Mongolian diagnostic JL4 catheter | | | advanced to the ascending aorta. Selectively engaging the left main, | | | contrast was injected, selective angiogram for the left main, LAD, | | | left circumflex artery performed. Over the guidewire, it was | | | exchanged for a 6-Mongolian diagnostic JR4 catheter. Selective engaging | | [...] exchange wire, it was exchanged for a 5-Mongolian IM catheter that | | | selectively engaged the BAILEY to the LAD. Contrast was injected, | | | selective angiogram for the BAILEY to the LAD performed in different | | | views. Over the guidewire, the IM catheter was exchanged for a | | | 6-Mongolian angled pigtail catheter that was advanced to the left | | | ventricle and left ventriculogram performed in the SERBIAN view. Then it | | | was pulled to the ascending aorta and ascending aortogram was | | | performed in the SERBIAN view. I noticed that there was only [...] was exchanged for a | | | 6-Mongolian JR4 guide that selectively engaged the stump of the SVG to | | | the right PDA. Using 180 cm Tower Dragline Operator 50 wire, I was able to advance the | | | wire down to the [place] right PDA. I first re-cannulized the graft | | | using multiple passes with 6-Mongolian Carbond[place] catheter that retrieved a | | | [...] distal SVG body and I pulled the Tower Dragline Operator wire. I predilated the SVG | | | using Tyrone RX balloon 2.5 x 20 mm at [...] Balloon was removed. Another pass with the Carbond[place] catheter was done | | | before [...] arteriotomy was closed using | | | 6-Mongolian Perclose closure device with good hemostasis. The [...] mL. | | | CONCLUSIONS 1. Three new [place] vessel disease. 2. Patent left internal | [...] | | | AICD. Read by MYCHAL SALMERON MD 03/27/2012 01:25 P | | | [...] of the right common femoral arteriotomy with 6-Mongolian Perclose | | closure device. | | [...] common femoral artery was cannulized with a 6-Mongolian | | sheath. Right common femoral angiogram was performed. Over a guidewire, a | | 6-Mongolian diagnostic JL4 catheter advanced to the ascending aorta. | | Selectively engaging the left main, contrast was injected, selective | | angiogram for the left main, LAD, left circumflex artery performed. Over | | the guidewire, it was exchanged for a 6-Mongolian diagnostic JR4 catheter. | | Selective engaging [...] exchange wire, it was exchanged for a 5-Mongolian IM catheter that | | selectively engaged the BAILEY to the LAD. Contrast was injected, selective | | angiogram for the BAILEY to the LAD performed in different views. Over the | | guidewire, the IM catheter was exchanged for a 6-Mongolian angled pigtail | | catheter that was advanced to the left ventricle and left ventriculogram | | performed in the SERBIAN view. Then it was pulled to the ascending aorta and | | ascending aortogram was performed in the SERBIAN view. | | | | I noticed [...] the pigtail catheter was exchanged for a 6-Mongolian JR4 | | guide that selectively engaged the stump of the SVG to the right PDA. | | Using 180 cm Tower Dragline Operator 50 wire, I was able to advance the wire down to the | | [place] right PDA. I first re-cannulized the graft using multiple passes | | with 6-Mongolian Carbondale catheter that retrieved a lot of red clot and JENNA-3 | | flow was established in the SVG to the right PDA. The SVG was diffusely | | diseased, so I decided to attempt angioplasty with stent. I put an EZ | | Filter 2.25 to 3 mm EZ Filter in the distal SVG body and I pulled the | | Tower Dragline Operator wire. I predilated the SVG using Tyrone RX balloon 2.5 x 20 mm at [...] removed. Another pass | | with the Carbond[place] catheter was done before retrieval of the filter. After | | the filter was retrieved using the retrieval device, a final angiogram was | | done showing JENNA-3 flow and 0% stenosis in the SVG to the right PDA. | | Next, the guide was removed and the sheath was removed. The arteriotomy | | was closed using 6-Mongolian Perclose closure device with good hemostasis. | [...] | | CONCLUSIONS | | 1. Three new [place] vessel disease. | | 2. Patent left [...] | | | | Read by MYCHAL SALMERON MD 03/27/2012 01:25 P | | | | | + + documented in this encounter Visit Diagnoses + + | Diagnosis | + + | Coronary artery disease Coronary atherosclerosis of unspecified type of vessel, | | [place] or graft | + + documented in this encounter
--- OUTSIDE RECORDS SUMMARY | ~2019-10-02 | XMS | Encounter Summary ---
Demographics + + + | Address | [address] | | | [place] [address] | + + + | Home Phone [...] Team Providers + +------+ + | Care Maintenance Manager Name | Role | Phone | [...] + + | 05/06/ | Telephone | [facility] | ShawncarlasamHans, | Blood Pressure | | 2018 | | CARDIOLOGY [address] | MD [address] | | | | | [place], | [place], | | | | | [place] [address] | [place] [address] | | | | | [phone] | [phone] | | | | | | | [...] | | | | | | [place] [address] | | | | | | [phone] | | | | | | | | +--------+---------+ + + + documented as of this encounter Visit Diagnoses Not on filedocumented in this encounter"
--- OUTSIDE RECORDS SUMMARY | ~2019-10-02 | XMS | Encounter Summary ---
Demographics + + + | Address | [address] | | | [place] [address] | + + + | Home Phone | | + + + | Preferred Language | Unknown | + + + | Marital Status | | + + + | Latter-Day Affiliation | 1077 | + + + | Race | Unknown | + + + | Ethnic Group | Unknown | + + + Author + + + | Author | [facility] | | | and [place] | + + + | Organization | [facility] | | | [...] Team Providers + +------+ + | Care Brass Plater Name | Role | Phone | + +------+ + | Osbaldo Wood MD | PCP | | + +------+ + Encounter Details +--------+ + + + + | Date | Type | Department | Care Team | Description | +--------+ + + + + | 02/28/ | Orders Only | [facility] | Sheldon Nye, | | | 2014 | | NEPHROLOGY [place] | DIRECTOR OF CARDIOLOGY [address] | | | | | [address] | [address] | | | | | [address] [facility] [place] | [place], [place] | | | | | [address] | [address] | | | | | [phone] | [phone] | | | | | | | [...] 2019 | Visit | | MD [address] | | | | | | [place], | | | | | | [place] [address] | | | | | | [phone] | | | | | | | [...] - 1.030 | EXTERNAL | | | [place], | | | LAB | | | [...] | | | LAB | | | [facility] | | | | | + + [...]
--- OUTSIDE RECORDS SUMMARY | ~2019-10-02 | XMS | Encounter Summary ---
Demographics + + + | Address | [address] [facility] | | | [place] [address] | + + + | Home Phone [...] Providers + +------+ + | Care Manager Nuclear Name | Role | Phone | + [...] | | MD [address] | [address] | | | | | aortocoronar | [address] | [address] 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, | Congestive heart | | | | [place] [address] | [place] [address] | failure, unspecified | | | | [phone] | [phone] | HF chronicity, | | | | [...] of this encounter Progress Notes Sissy Mcmullen, Biological Inspector - 08/28/2019 1:30 PM PDT PATIENT NAME: [...] RESULTS reviewed during visit today primarily from [facility]: LIPID Lab Results Component Value Date CHOL [...] is in a class I o f [place] [employer] functional class. There is bilateral [...] reviewed and edited this note. Sissy Mcmullen Mobile Designer 08/28/2019 I, Hans Blanco MD, personally performed the services described in this documentation, as scribed in my presence and it is both accurate and complete. Sissy Mcmullen Med Ass t 08/28/2019 1:34 PM Electronically signed by: Hans Blanco MD [facility] 08/28/2019 Portions of this chart may have been created with [employer] voice recognition software. Occasi onal wrong-word or [...] | Visit | | MD [address] [place] | | | | | | [place], | | | | | | [place] [address] | | | | | | [phone] | | | | | | | | +--------+---------+ + + + documented as of this encounter Visit Diagnoses + + | Diagnosis | + + | CAD, multiple vessel - Primary Coronary atherosclerosis of unspecified type of | | vessel, burns paiute or graft | + + | Congestive heart failure, unspecified HF chronicity, unspecified heart failure type | | (HCC) | + + documented in this encounter
--- OUTSIDE RECORDS SUMMARY | ~2019-10-02 | XMS | Encounter Summary ---
Demographics + + + | Address | [address] [facility] [address] | | | [place] [address] | + + + | Home Phone [...] Team Providers + +------+ + | Care Care Partner Name | Role | Phone | + +------+ + | Osbaldo Wood MD | PCP | | + +------+ + Encounter Details +--------+ + + + + | Date | Type | Department | Care Team | Description | +--------+ + + + + | 02/21/ | Hospital | [facility] | Hans Blanco, | | | 2020 | Encounter | [facility] | [address] | | | | | [address] [place] | [place], | | | | | [place], [place] | [place] [address] | | | | | [address] | [phone] | | | | | [phone] | | | +--------+ + + + [...] | | | | | | [place] [address] | | | | | | [phone] | | | | | | | | +--------+---------+ + + + documented as of this encounter Visit Diagnoses Not on filedocumented in this encounter"
--- OUTSIDE RECORDS SUMMARY | ~2019-10-02 | XMS | Encounter Summary ---
Demographics + + + | Address | [address] | | | [place] [address] | + + + | Home Phone | | + + + | Preferred Language | Unknown | + + + | Marital Status | | + + + | Scientology Affiliation | 1077 | + + + | Race | Unknown | + + + | Ethnic Group | Unknown | + + + Author + + + | Author | [facility] | | | and [place] | + + + | Organization | [facility] | | | and [...] Team Providers + +------+ + | Care Sheather Name | Role | Phone | + +------+ + PCP | Unavailable | + +------+ + Encounter Details +--------+ + + + + | Date | Type | Department | Care Team | Description | +--------+ + + + + | 03/27/ | Hospital | [facility] | Conversion | 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 | [facility] | Transaction, | disease | | | | CLINICAL DECISION | Provider Unknown | | | 03/28/ | | [address] | [phone] | | | 2011 | | [place], [place] | | | | | | [address] | Mychal Salmeron MD | | | | | [phone] | [address] | | | | | | [place] [address] | | | | | | [phone] | | | | | | | [...] Service: Cardiology Author Type: Physician Filed: 03/29/12 2843 Date of Service: 03/28/12932 Status: Signed Supervisor Cell Maintenance: Mychal Salmeron MD (Physician) [facility] Service: Cardiology Discharge Summary Date of Admission: [...] of the right common femoral arteriotomy with 6-[place] Perclose closure device. 10. Angioplasty for saphenous [...] heart catheterization . Cath showed: 1. Three [place] vessel disease. 2. Patent left internal mammary [...] DISCHARGE MEDICATIONS: Wilmer Pinon Home Medication Instructions JASPER:[id number] Printed on:03/28/12 2866 Medication Information metformin (GLUCOPHAGE) 500 MG tablet [...] 1037 Date of Service: 03/28/121033 Status: Signed Supervisor Cell Maintenance: Arelis Moreira RN (Registered Nurse) Patient and spouse denies questions or concerns at this time. One prescription given to maricel enedelia. Discharged ambulatory with spouse. onver rohini Transaction, Provider Unknown - 03/28/2012 9:19 AM PDT Progress Notes by JAIME Borden at 03/28/12918 Author: JAIME Borden Service: (none) Author Type: Reading Tutor Filed: 03/28/12918 Date of Service: 03/28/12918 Status: Signed Supervisor Cell Maintenance: JAIME Borden (Reading Tutor) BETTING CLERK met mookie/ CHRISTIANO Navarrete Lead nurse, states no d/c needs or concerns. onver rohini Transaction, Provider Unknown - 03/27/2012 5:00 PM PDT Progress Notes by Britt Manuel RN at 03/27/121699 Author: Britt Manuel RN Service: (none) Author Type: Registered Nurse Filed: 03/27/121719 Date of Service: 03/27/121699 Status: Signed Supervisor Cell Maintenance: Britt Manuel RN (Registered Nurse) Patient ambulated [...] 1414 Date of Service: 03/27/121413 Status: Signed Supervisor Cell Maintenance: Tamir Nichols RPH (Pharmacist) Renal Dosing Monitoring: [...] Notes by Britt Manuel RN at 03/27/12 1343 Author: Britt Manuel RN Service: (none) Author Type: Registered Nurse Filed: 03/27/12 0565 Date of Service: 03/27/121344 Status: Signed Supervisor Cell Maintenance: Britt Manuel RN (Registered Nurse) Patient admit [...] | 2019 | Visit | | [address] [facility] | | | | | | [place], | | | | | | [place] [address] | | | | | | [phone] | | | | | | | [...] common | | | femoral arteriotomy with 6-[place] Perclose closure device. 10. | | | [...] | | | was cannulized with a 6-[place] sheath. Right common femoral angiogram | | | was performed. Over a guidewire, a 6-[place] diagnostic JL4 catheter | | | advanced to the ascending aorta. Selectively engaging the left main, | | | contrast was injected, selective angiogram for the left main, LAD, | | | left circumflex artery performed. Over the guidewire, it was | | | exchanged for a 6-[place] diagnostic JR4 catheter. Selective engaging | | [...] exchange wire, it was exchanged for a 5-[place] Islander IM catheter that | | | selectively engaged the BAILEY to the LAD. Contrast was injected, | | | selective angiogram for the BAILEY to the LAD performed in different | | | views. Over the guidewire, the IM catheter was exchanged for a | | | 6-[place] Islander angled pigtail catheter that was advanced to the left | | | ventricle and left ventriculogram performed in the AUSTRALIAN view. Then it | | | was pulled to the ascending aorta and ascending aortogram was | | | performed in the AUSTRALIAN view. I noticed that there was only [...] was exchanged for a | | | 6-[place] Islander JR4 guide that selectively engaged the stump of the SVG to | | | the right PDA. Using 180 cm Stone Finisher 50 wire, I was able to advance the | | | wire down to the [place] right PDA. I first re-cannulized the graft | | | using multiple passes with 6-[place] Islander Paris catheter that retrieved a | | | [...] distal SVG body and I pulled the Stone Finisher wire. I predilated the SVG | | | using [place] RX balloon 2.5 x 20 mm at [...] Balloon was removed. Another pass with the Paris catheter was done | | | before [...] arteriotomy was closed using | | | 6-[place] Islander Perclose closure device with good hemostasis. The [...] mL. | | | CONCLUSIONS 1. Three [place] vessel disease. 2. Patent left internal | [...] of the right common femoral arteriotomy with 6-[place] Islander Perclose | | closure device. | | [...] common femoral artery was cannulized with a 6-[place] Islander | | sheath. Right common femoral angiogram was performed. Over a guidewire, a | | 6-[place] diagnostic JL4 catheter advanced to the ascending aorta. | | Selectively engaging the left main, contrast was injected, selective | | angiogram for the left main, LAD, left circumflex artery performed. Over | | the guidewire, it was exchanged for a 6-[place] Islander diagnostic JR4 catheter. | | Selective engaging [...] exchange wire, it was exchanged for a 5-[place] Islander IM catheter that | | selectively engaged the BAILEY to the LAD. Contrast was injected, selective | | angiogram for the BAILEY to the LAD performed in different views. Over the | | guidewire, the IM catheter was exchanged for a 6-[place] Island[place] angled pigtail | | catheter that was advanced to the left ventricle and left ventriculogram | | performed in the AUSTRALIAN view. Then it was pulled to the ascending aorta and | | ascending aortogram was performed in the AUSTRALIAN view. | | | | I noticed [...] the pigtail catheter was exchanged for a 6-[place] Islander JR4 | | guide that selectively engaged the stump of the SVG to the right PDA. | | Using 180 cm Stone Finisher 50 wire, I was able to advance the wire down to the | | [place] right PDA. I first re-cannulized the graft using multiple passes | | with 6-[place] Paris catheter that retrieved a lot of red clot and JENNA-3 | | flow was established in the SVG to the right PDA. The SVG was diffusely | | diseased, so I decided to attempt angioplasty with stent. I put an EZ | | Filter 2.25 to 3 mm EZ Filter in the distal SVG body and I pulled the | | Stone Finisher wire. I predilated the SVG using [place] RX balloon 2.5 x 20 mm at [...] removed. Another pass | | with the Paris catheter was done before retrieval of the filter. After | | the filter was retrieved using the retrieval device, a final angiogram was | | done showing JENNA-3 flow and 0% stenosis in the SVG to the right PDA. | | Next, the guide was removed and the sheath was removed. The arteriotomy | | was closed using 6-[place] Islander Perclose closure device with good hemostasis. | [...] | | CONCLUSIONS | | 1. Three [place] vessel disease. | | 2. Patent left [...] common | | | femoral arteriotomy with 6-[place] Islander Perclose closure device. 10. | | | [...] | | | was cannulized with a 6-[place] Islander sheath. Right common femoral angiogram | | | was performed. Over a guidewire, a 6-[place]er diagnostic JL4 catheter | | | advanced to the ascending aorta. Selectively engaging the left main, | | | contrast was injected, selective angiogram for the left main, LAD, | | | left circumflex artery performed. Over the guidewire, it was | | | exchanged for a 6-[place] Islander diagnostic JR4 catheter. Selective engaging | | [...] exchange wire, it was exchanged for a 5-[place] Islander IM catheter that | | | selectively engaged the BAILEY to the LAD. Contrast was injected, | | | selective angiogram for the BAILEY to the LAD performed in different | | | views. Over the guidewire, the IM catheter was exchanged for a | | | 6-[place]er angled pigtail catheter that was advanced to the left | | | ventricle and left ventriculogram performed in the AUSTRALIAN view. Then it | | | was pulled to the ascending aorta and ascending aortogram was | | | performed in the AUSTRALIAN view. I noticed that there was only [...] was exchanged for a | | | 6-[place] Islander JR4 guide that selectively engaged the stump of the SVG to | | | the right PDA. Using 180 cm Stone Finisher 50 wire, I was able to advance the | | | wire down to the [place] right PDA. I first re-cannulized the graft | | | using multiple passes with 6-[place] Paris catheter that retrieved a | | | [...] distal SVG body and I pulled the Stone Finisher wire. I predilated the SVG | | | using [place] RX balloon 2.5 x 20 mm at [...] Balloon was removed. Another pass with the Paris catheter was done | | | before [...] arteriotomy was closed using | | | 6-[place] Islander Perclose closure device with good hemostasis. The [...] mL. | | | CONCLUSIONS 1. Three [place] vessel disease. 2. Patent left internal | [...] of the right common femoral arteriotomy with 6-[place] Islander Perclose | | closure device. | | [...] common femoral artery was cannulized with a 6-[place] Islander | | sheath. Right common femoral angiogram was performed. Over a guidewire, a | | 6-[place] diagnostic JL4 catheter advanced to the ascending aorta. | | Selectively engaging the left main, contrast was injected, selective | | angiogram for the left main, LAD, left circumflex artery performed. Over | | the guidewire, it was exchanged for a 6-[place]er diagnostic JR4 catheter. | | Selective engaging [...] exchange wire, it was exchanged for a 5-[place] Islander IM catheter that | | selectively engaged the BAILEY to the LAD. Contrast was injected, selective | | angiogram for the BAILEY to the LAD performed in different views. Over the | | guidewire, the IM catheter was exchanged for a 6-[place] Islander angled pigtail | | catheter that was advanced to the left ventricle and left ventriculogram | | performed in the AUSTRALIAN view. Then it was pulled to the ascending aorta and | | ascending aortogram was performed in the AUSTRALIAN view. | | | | I noticed [...] the pigtail catheter was exchanged for a 6-[place] Islander JR4 | | guide that selectively engaged the stump of the SVG to the right PDA. | | Using 180 cm Stone Finisher 50 wire, I was able to advance the wire down to the | | [place] right PDA. I first re-cannulized the graft using multiple passes | | with 6-[place] Paris catheter that retrieved a lot of red clot and JENNA-3 | | flow was established in the SVG to the right PDA. The SVG was diffusely | | diseased, so I decided to attempt angioplasty with stent. I put an EZ | | Filter 2.25 to 3 mm EZ Filter in the distal SVG body and I pulled the | | Stone Finisher wire. I predilated the SVG using [place] RX balloon 2.5 x 20 mm at [...] removed. Another pass | | with the Paris catheter was done before retrieval of the filter. After | | the filter was retrieved using the retrieval device, a final angiogram was | | done showing JENNA-3 flow and 0% stenosis in the SVG to the right PDA. | | Next, the guide was removed and the sheath was removed. The arteriotomy | | was closed using 6-[place] Islander Perclose closure device with good hemostasis. | [...] | | CONCLUSIONS | | 1. Three [place] vessel disease. | | 2. Patent left [...] of unspecified type of vessel, | | [place] or graft | + + documented in this encounter
[2019-10-02] MEDS ORDERED: LISINOPRIL20 MG PO (13:11)
[2019-10-02] MEDS ORDERED: ROSUVASTATIN CA20 MG PO (13:11)
[2019-10-02] MEDS ORDERED: CLONIDINE HCL0.2 MG IV (13:12)
[2019-10-02] MEDS ORDERED: TORSEMIDE5 MG PO (13:13)
[2019-10-02] MEDS ORDERED: ROPINIROLE HCL0.5 MG PO (13:13)
[2019-10-02] MEDS ORDERED: NORVASC5 MG PO (13:14)
--- NOTE | 2019-10-03 01:18 | EKG ---
[facility] [address] [facility] [address] [place] [address] Signed Atrial fibrillation with slow ventricular response Right bundle branch block Abnormal ECG Confirmed by JANUSZ CHACON MD ([id number]) on 10/03/2019 1:18:00 AM Electronically Signed By: JANUSZ CHACON MD 10/03/19 0118 PATIENT NAME: ASHLEE ZAMAN Electrocardiogram DATE OF : 33 PHYSICIAN: JANUSZ CHACON MD REPORT #: [id number] REPORT IS CONFIDENTIAL AND NOT TO BE RELEASED WITHOUT AUTHORIZATION
== END 2019-10-02 13:36 | disposition short-term general hospital (02) ==
LOC: ED 11:46
DX: R00.1 Bradycardia, unspecified (principal); R55 Syncope and collapse; I50.9 Heart failure, unspecified; I11.0 Hypertensive heart disease with heart failure; E78.5 Hyperlipidemia, unspecified; K21.9 Gastro-esophageal reflux disease without esophagitis; Z87.891 Personal history of nicotine dependence; Z88.5 Allergy status to narcotic agent; Z88.6 Allergy status to analgesic agent; Z88.8 Allergy status to other drugs, medicaments and biological substances; Z79.899 Other long term (current) drug therapy
CPT/HCPCS: 51702; 70450; 71045; 80053; 83735; 84443; 84484; 85025; 93005; 93010; 99285-25; J0461; J7030

== ENCOUNTER 2020-01-03 17:45 | Emergency (ER) | payer MEDICARE ==
[~2020-01-03] VITALS: Ht 185.4 cm; Wt 86.2 kg
--- OUTSIDE RECORDS SUMMARY | ~2020-01-03 | XMS | Encounter Summary ---
Demographics + + + | Address | [address] | | | [place] [address] | + + + | Home Phone | | + + + | Preferred Language | Unknown | + + + | Marital Status | | + + + | Restoration Affiliation | 1077 | + + + | Race | Unknown | + + + | Ethnic Group | Unknown | + + + Author + + + | Author | [facility] | | | and [place] | + + + | Organization | [facility] | | | and [...] Team Providers + +------+ + | Care Topology Teacher Name | Role | Phone | + +------+ + | Ana Maria Yuan MD | PCP | | + +------+ + Reason for Visit + +--------+ + | Reason | Onset | Comments | | | Date | | + +--------+ + | Patient Education | 10/19/ | post pacemaker lead revision precautions | | | 2020 | | + +--------+ + Encounter Details +--------+ + + + + | Date | Type | Department | Care Team | Description | +--------+ + + + + | 10/19/ | Telephone | [facility] | Hans Blanco, | Patient Education | | 2019 | | CARDIOLOGY [address] [facility] | (post pacemaker lead | | | | [place], | [place], | revision | | | | [place] [address] | [place] [address] | precautions) | | | | [phone] | [phone] | | | | | | | | +--------+ + + + + Social History + +-------+ +--------+------+ | Tobacco Use | Types | Packs/Day | Years | Date | | | | | Used | | + +-------+ +--------+------+ | Never Smoker | | | | | + +-------+ +--------+------+ + +---+---+---+ | Smokeless Tobacco: | | | | | Never Used | | | | + +---+---+---+ + + +---------+ + | Alcohol Use | Drinks/Week | oz/Week | Comments | + + +---------+ + | No | | | | + + +---------+ + + + + | Sex Assigned at | Date Recorded | | | | + + + | Not on file | | + + + documented as of this encounter Functional Status + + + + | Functional Status | Response | Date of Assessment | + + + + | Are you deaf or do you have serious | No | 03/11/2018 | | difficulty hearing? | | | + + + + | Are you blind or do you have serious | No | 03/11/2018 | | difficulty seeing, even when wearing | | | | glasses? | | | + + + + | Do you have serious difficulty walking or | No | 03/11/2018 | | climbing stairs? (5 years old or older) | | | + + + + | Do you have difficulty dressing or bathing? | No | 03/11/2018 | | (5 years old or older) | | | + + + + | Because of a physical, mental, or emotional | No | 03/11/2018 | | condition, do you have difficulty doing | | | | errands alone such as visiting a doctor's | | | | office or shopping? [15 years old or | | | | older)] | | | + + + + + + + + | Cognitive Status | Response | Date of Assessment | + + + + | Because of a physical, mental, or emotional | No | 03/11/2018 | | condition, do you have serious difficulty | | | | concentrating, remembering, or making | | | | decisions? (5 years old or older) | | | + + + + documented as of this encounter Miscellaneous Notes Telephone Encounter - Zaira Mcneil RN - 10/20/2019 10:39 AM PDTCalled patient to asses s knowledge of and reinforce teaching of precautions post atrial lead revision. Spoke to maricel mcdaniels's Rhona per her request due to patient hard of hearing. Instructed to keep the i ncision clean and dry; normal showering is fine and the incision can be gently patted dry. W e recommend patient does not soak or scrub the incision. Itching is a normal part of the hea ling process but please do not scratch or touch the incision. Rhona is advised to call our office immediately if incision becomes warm, red, opens, or if patient otherwise feels they want to apply a bandage. Rhona is instructed to not allow Jorge to raise the left arm more than 90 degrees. The patie nt can not lift, pull or push more than ten pounds on the left side. Advised to scoot to the edge of a chair or bed before standing to assist in getting up. Appropriate use of assistiv e devices such as slings, canes, walkers and crutches were discussed. Informed to maintain these precautions until November 09, 2019. Rhona is reminded of wound check appointment on 10/28 at 1:30 PM. Reminded Rhona to please call our office for any questions or concerns. She did not have any further questions and verbalized understanding of all instructions. Electronically signed by: Zaira Mcneil RN 10/20/2019 10:47 AM documented in this e ncounter Plan of Treatment +--------+---------+ + + + | Date | Type | Specialty | Care Team | Description | +--------+---------+ + + + | 01/20/ | Office | Cardiology | Hans Blanco, | | | 2019 | Visit | | MD [address] | | | | | | [place], | | | | | | [place] [address] | | | | | | [phone] | | | | | | | | +--------+---------+ + + + | 02/25/ | Office | Cardiology | Hans Blanco, | | | 2019 | Visit | | MD [address] | | | | | | [place], | | | | | | [place] [address] | | | | | | [phone] | | | | | | | | +--------+---------+ + + + documented as of this encounter Visit Diagnoses Not on filedocumented in this encounter"
--- OUTSIDE RECORDS SUMMARY | ~2020-01-03 | XMS | Encounter Summary ---
Demographics + + + | Address | [address] | | | [place] [address] | + + + | Home Phone | | + + + | Preferred Language | Unknown | + + + | Marital Status | | + + + | Restoration Affiliation | 1077 | + + + | Race | Unknown | + + + | Ethnic Group | Unknown | + + + Author + + + | Author | [facility] | | | and [place] | + + + | Organization | [facility] | | | and [...] Team Providers + +------+ + | Care Program Technician Name | Role | Phone | + +------+ + | Ana Maria Yuan MD | PCP | | + +------+ + Reason for Visit + + + | Reason | Comments | + + + | Screening For | Pre op: DOS: 10/19/19 | | Communicable Disease | | + + + Encounter Details +--------+ + + + + | Date | Type | Department | Care Team | Description | +--------+ + + + + | 10/15/ | Clinical | [facility] | Luis Valentino | Pre-op testing | | 2020 | Support | [facility] [address] | LILI Guillen [address] | | | | | [place], [place] | [address] [place] | | | | | [address] | [place] [address] | | | | | [phone] | [phone] | | | | | | | [...] + + documented as of this encounter Last Filed Vital Signs + + + + + | Vital Sign | Reading | Time Taken | Comments | + + + + + | Blood Pressure | - | - | | + + + + + | Pulse | 60 | 10/16/2019 2:29 PM | | | | | PDT | | + + + + + | Temperature | 36.9 C (98.4 F) | 10/16/2019 2:29 PM | | | | | PDT | | + + + + + | Respiratory Rate | - | - | | + + + + + | Oxygen Saturation | 98% | 10/16/2019 2:29 PM | | | | | PDT | | + + + + + | Inhaled Oxygen | - | - | | | Concentration | | | | + + + + + | Weight | - | - | | + + + + + | Height | - | - | | + + + + + | Body Mass Index | - | - | | + + + + + documented in this encounter Functional Status + + + [...] + + documented as of this encounter Progress Monse Rivera RN - 10/16/2019 2:30 PM PDT [facility] Intake Form Affix Patient Label [] Photo ID Verified Patient Name:Wilmer Pinon Provider:DAYAMI FRIEND URGENT NURSE :1935 Date:10/16/19 MyChart: Activated Vitals: There were no vitals taken for this visit. RN History/Symptom Review (if available, RN to review patient chart): If any of these are true, patient must see provider in UC. [] Diabetes Mellitus [] COPD [] Current Cancer Treatment [] Immunosuppression [] Chronic Kidney Disease [] Suspected Strep Throat [] Congestive Heart Failure [] Liver Disease [] Chronic Steroid Use [] Additional Evaluation Notes: Pre op testing patient is not symptomatic Testing Protocol: Proceed to testing if ANY of the following conditions are present: [] History of possible COVID-19 exposure PLUS any of the following: [] History of fever [] Current fever >/= 100.4 F [] Any URI symptoms (cough, sore throat, runny nose, etc.) [] Current cough <10 days duration [] History of fever or temperature >/= 100.4 F AND any URI symptoms Asymptomatic patients will NOT be screened regardless of exposure history. If dominant sore throat without cough, send to Urgent Care for provider evaluation and swab for strep (not provided at [facility]). Based on my assessment of both epidemiological and clinical factors, this patient [] IS /[ x] IS NOT a person under investigation (PUI) for COVID-19. Any persons tested for COVID-19 are considered a PUI. Triage: Patient triaged to see provider in Urgent Care [] Yes [x] No Discharge: [] Social Distancing/Quarantine Guidelines [] Upper Respiratory Infection Self Care Instructions [] Work Letter Darlene Ramirez Therapeutic Sales Specialist - 10/16/2019 2:30 PM JAIL[facility] COVID-[facility] Intake Form ([place]) Affix Patient Label [] Photo ID Verified Patient Name:Wilmer Pinon Provider:DAYAMI FRIEND URGENT NURSE :1935 Date:10/16/19 [] If <15 or >70 years of age, confer with provider to see if they want patient to be swab bed in DT or to be seen. [] Intention to see provider [x] Intention for screening at drive through MyChart: Activated Symptom Screen: How many days have you been experiencing symptoms? 0 days [] Cough: duration of cough? 0 days ? If symptoms or cough >10 days, send to for provider evaluation [] Fever >100.4 [] Chills and/or repeated shaking with chills [] Sore Throat [] Body Aches or Muscle Pain [] Headache [] Exposure to a person with confirmed COVID-19 If yes, details: [] Chest Pain, warm hand transfer to RN inside (Room 1 for triage) [] Abdominal Pain [] Nausea [] Vomiting [] Diarrhea [] Change in Sense of Smell and/or Taste [x] Where do you work? Retired [] What day did you last work? [] Healthcare worker? NO [] Shortness of breath, confer with provider to decide if patient needs to be seen insid e [x] Symptom check completed - patient is asymptomatic - here for pre-procedure screening o nly [] Other: Electr onically signed by Darlene Olson, Therapeutic Sales Specialist at 10/16/2019 2:31 PM PDTdocupati vargas this encounter Plan of Treatment +--------+---------+ + + + | Date | Type | Specialty | Care Team | Description | +--------+---------+ + + + | 01/20/ | Office | Cardiology | Hans Blanco, | | | 2019 | Visit | | MD [address] | | | | | | [place], | | | | | | [place] [address] | | | | | | [phone] | | | | | | | | +--------+---------+ + + + | 02/25/ | Office | Cardiology | Hans Blanco, | | | 2019 | Visit | | MD [address] | | | | | | [place], | | | | | | [place] [address] | | | | | | [phone] | | | | | | | | +--------+---------+ + + + documented as of this encounter Procedures + +--------+ + + + | Procedure Name | Priori | Date/Time | Associated Diagnosis | Comments | | | ty | | | | + +--------+ + + + | CORONAVIRUS | Routin | 10/16/2019 | Pre-op testing | Results for this | | (COVID-19) NAAT | e | 2:27 PM | | procedure are in the | | | | PDT | | results section. | + +--------+ + + + documented in this encounter Results Coronavirus (COVID-19) NAAT (10/16/2019 2:27 PM PDT) + + + + + + | Component | Value | Ref Range | Performed | Pathologist | | | | | At | Signature | + + + + + + | SARS-CoV-2, | Not DetectedComment: | Not Detected | REFERENCE | | | NAAT | This test was developed | | LAB [facility] | | | (COVID-19) | and its performance | | - [facility] | | | | characteristics | | | | | | determinedby [facility] | | | | | | Laboratories. This test | | | | | | has not been FDA cleared | | | | | | orapproved. This test | | | | | | has been authorized by | | | | | | FDA under an Emergency | | | | | | UseAuthorization (EUA). | | | | | | This test is only | | | | | | authorized for the | | | | | | duration oftime the | | | | | | declaration that | | | | | | circumstances exist | | | | | | justifying | | | | | | theauthorization of the | | | | | | emergency use of in | | | | | | vitro diagnostic tests | | | | | | fordetection of | | | | | | SARS-CoV-2 virus and/or | | | | | | diagnosis of COVID-19 | | | | | | infectionunder section | | | | | | 564(b)(1) of the Act, 21 | | | | | | U.S.C. 360bbb-3(b)(1), | | | | | | unlessthe authorization | | | | | | is terminated or revoked | | | | | | sooner.When diagnostic | | | | | | testing is negative, the | | | | | | possibility of a | | | | | | falsenegative result | | | | | | should be considered in | | | | | | the context of a | | | | | | patient'srecent | | | | | | exposures and the | | | | | | presence of clinical | | | | | | signs and | | | | | | symptomsconsistent with | | | | | | COVID-19. An individual | | | | | | without symptoms of | | | | | | COVID-19and who is not | | | | | | shedding SARS-CoV-2 | | | | | | virus would expect to | | | | | | have anegative (not | | | | | | detected) result in this | | | | | | assay. | | | | + + + + + + + + | Specimen | + + | Tissue - Entire | | nasopharynx (body | | structure) | + + + + + | Narrative | Performed At | + + + | Performed at: 01 - [facility] [place] [address] [place], [place] | REFERENCE LAB | | [id number] Senior Operations Analyst: Ervin Correa MD, Phone: [phone] | [facility] | + + + + + + + + | Performing | Address | City/State/Zipcode | Phone Number | | Organization | | | | + + + + + | REFERENCE LAB | [address] | [place], [place] | [phone] | | [facility] | [facility] | [address] | | + + + + + documented in this encounter Visit Diagnoses + + | Diagnosis | + + | Pre-op testing Preoperative examination, unspecified | + + documented in this encounter"
--- OUTSIDE RECORDS SUMMARY | ~2020-01-03 | XMS | Encounter Summary ---
Demographics + + + | Address | [address] | | | [place] [address] | + + + | Home Phone | | + + + | Preferred Language | Unknown | + + + | Marital Status | | + + + | Taoist Affiliation | 1077 | + + + | Race | Unknown | + + + | Ethnic Group | Unknown | + + + Author + + + | Author | [facility] | | | and [place] | + + + | Organization | [facility] | | | and [...] Team Providers + +------+ + | Care Estimator Printing Plate Making Name | Role | Phone | + +------+ + PCP | Unavailable | + +------+ + Encounter Details +--------+ + + + + | Date | Type | Department | Care Team | Description | +--------+ + + + + | 05/11/ | Hospital | [facility] | Sony Oconnell MD | | | 2010 | Encounter | MED CTR MP INTRA OP | [address] | | | | | [address] | [place] | | | | | [place] | [address] | | | | | [address] | [phone] | | | | | [phone] | | | +--------+ + + + [...] documented as of this encounter Miscellaneous Notes Op Note - Sony Oconnell - 05/11/2011 8:24 AM PSTDATE: 05/11/2011 PREOPERATIVE DIAGNOSIS: Obstructing prostate. POSTOPERATIVE DIAGNOSIS: OBSTRUCTING PROSTATE. PROCEDURE PERFORMED: Transurethral laser vaporization of prostate. SURGEON: Sony Oconnell MD ANESTHESIA: Spinal by Crescencio Govea MD PROCEDURE: After induction of general anesthetic, the patient's legs were placed in lithot leslie. Genitalia were prepped and draped. A 23-Greek continuous flow scope was easily insert ed with visual obturator. 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 Trilobar prostate obstructed through 2.5 cm including a small me scott lobe. The bladder was grade 2/4 trabeculated without mucosal lesion or diverticulum. T he cyber laser was used on 100 rosenberg. The posterior prostate was vaporized from its intrav esical extent down to the proximal aspect of the verumontanum. Left lobe was vaporized from 5 through 12 o'clock. Right lobe was vaporized from 7 through 12 o'clock. No capsular pene tration occurred. ESTIMATED BLOOD LOSS: 5 mL. SPECIMENS: No specimen. DRAINS: A 22-Greek irrigating Junior catheter was positioned. DICTATED BY: Sony Oconnell MD Urology JOB #: [id number] EXT JOB #:[id number] <Electronicall y Signed by Sony Oconnell MD> 05/12/11 0719 documented in this encounter Plan of Treatment +--------+---------+ + + + | Date | Type | Specialty | Care Team | Description | +--------+---------+ + + + | 01/20/ | Office | Cardiology | aHns Blanco, | | | 2019 | Visit | | [address] | | | | | | [place], | | | | | | [place] [address] | | | | | | [phone] | | | | | | | | +--------+---------+ + + + | 02/25/ | Office | Cardiology | Hans Blanco, | | | 2019 | Visit | | MD [address] | | | | | | [place], | | | | | | [place] [address] | | | | | | [phone] | | | | | | | | +--------+---------+ + + + documented as of this encounter Visit Diagnoses Not on filedocumented in this encounter"
--- OUTSIDE RECORDS SUMMARY | ~2020-01-03 | XMS | Encounter Summary ---
Demographics + + + | Address | [address] | | | [place] [address] | + + + | Home Phone | | + + + | Preferred Language | Unknown | + + + | Marital Status | | + + + | Latter Day Affiliation | 1077 | + + + | Race | Unknown | + + + | Ethnic Group | Unknown | + + + Author + + + | Author | [facility] | | | and [place] | + + + | Organization | [facility] | | [...] Team Providers + +------+ + | Care Instrument Maker Apprentice Name | Role | Phone | + +------+ + | Ana Maria Yuan MD | PCP | | + +------+ + Encounter Details +--------+ + + + + | Date | Type | Department | Care Team | Description | +--------+ + + + + | 10/12/ | Hospital | [facility] | Hans Blanco, | Displacement of | | 2020 | Encounter | MED CTR XRAY [address] | atrial pacemaker | | | | [place] | [address] [place], | leads, initial | | | | [place] [address] | [place] [address] | encounter; | | | | [phone] | [phone] | Sinoatrial node | | | | | | dysfuntion - | | | | | | bradycardia; | | | | | | Pacemaker, Dual | | | | | | Chamber, MRI | | | | | | [place], [facility] [place] | | | | | | 10/02/2019 Francis | +--------+ + + + + Social [...] tablet by | 30 | 5 | 05/07/ | | | (CATAPRES) 0.1 mg | [...] DAILY | tablet | | 19 | 0 | | tablet | | | | | | + + + +---------+ + + | aspirin 325 mg EC | Take 325 mg by mouth | | 0 | | | | tablet | Daily. | | | | 0 | + + + +---------+ + + | nitroglycerin | Place 0.4 mg under | | 0 | | | | (NITROSTAT) 0.4 mg | the tongue every 5 | | | | 0 | | SL tablet | minutes as needed | | | | | | | for Chest pain. | | | | | + + + +---------+ + + | rosuvastatin | Take 1 tablet by | 30 | 5 | 07/31/19 | | | (CRESTOR) 20 mg | mouth nightly. | tablet | | 20 | 0 | | tabletIndications: | | | | [...] | | | | | | [place] [address] | | | | | | [phone] | | | | | | | | +--------+---------+ + + + | 02/25/ | Office | Cardiology | Hans Blanco, | | | 2019 | Visit | | MD [address] | | | | | | [place], | | | | | | [place] [address] | | | | | | [phone] | | | | | | | | +--------+---------+ + + + documented as of this encounter Procedures + +--------+ + + + | Procedure Name | Priori | Date/Time | Associated Diagnosis | Comments | | | ty | | | | + +--------+ + + + | XR CHEST PA AND | Routin | 10/13/2019 | Displacement of | Results for this | | LATERAL | e | 1:19 PM | atrial pacemaker | procedure are in the | | | | PDT | leads, initial | results section. | | | | | encounter | | | | | | Sinoatrial node | | | | | | dysfuntion - | | | | | | bradycardia | | | | | | Pacemaker, Dual | | | | | | Chamber, MRI | | | | | | Capable, [facility] | | | | | | 10/02/2019 [place] | | + +--------+ + + + documented in this encounter Results XR Chest PA and Lateral (10/13/2019 1:19 PM PDT) + + | Specimen | + + | | + + + + + | Impressions | Performed At | + + + | Left pacemaker with leads to the heart demonstrating the atrial lead | [facility] | | to be in a more inferior location compared to 10/02/2019. | | | Dictated and Signed by: Justus Valdivia MD Electronically signed: | | | 10/13/2019 2:47 PM | | + + + + + + | Narrative | Performed At | + + + | XR CHEST PA AND LATERAL 10/13/2019 1:19 PM HISTORY: possible | [facility] | | atrial lead dislodgement. COMPARISON: Multiple priors. | | | Findings: There is a left pacemaker with leads to the heart | | | demonstrating the atrial lead to be in a more inferior location | | | compared to 10/02/2019. Sternotomy wires and mediastinal clips are | | | noted. Heart size is normal. There are atherosclerosis and tortuosity | | | of the aorta. Mediastinum demonstrates no acute findings. Central | | | pulmonary vasculature is normal. Mild scarring are in the lung bases. | | | There is moderate spondylosis. | | + + + + + | Procedure Note | + + | Maciel, Rad Results In - 10/13/2019 2:51 PM PDT XR CHEST PA AND LATERAL 10/13/2019 1:19 | | PMHISTORY: possible atrial lead dislodgement.COMPARISON: Multiple priors.Findings:There | | is a left pacemaker with leads to the heart demonstrating the atrial leadto be in a more | | inferior location compared to 10/02/2019. Sternotomy wires andmediastinal clips are | | noted. Heart size is normal. There are atherosclerosis andtortuosity of the aorta. | | Mediastinum demonstrates no acute findings. Centralpulmonary vasculature is normal. Mild | | scarring are in the lung bases. There ismoderate spondylosis.IMPRESSION: Left pacemaker | | with leads to the heart demonstrating the atrial lead to be in michelle inferior location | | compared to 10/02/2019.Dictated and Signed by: Justus Valdivia MD Electronically signed: | | 10/13/2019 2:47 PM | |tortuosity of the aorta. Mediastinum demonstrates no acute findings. Central | |pulmonary vasculature is normal. Mild scarring are in the lung bases. There is | |moderate spondylosis. | | | |IMPRESSION: | |Left pacemaker with leads to the heart demonstrating the atrial lead to be in a | |more inferior location compared to 10/02/2019. 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
--- OUTSIDE RECORDS SUMMARY | ~2020-01-03 | XMS | Encounter Summary ---
Demographics + + + | Address | [address] | | | [place] [address] | + + + | Home Phone | | + + + | Preferred Language | Unknown | + + + | Marital Status | | + + + | Congregational Affiliation | 1077 | + + + | Race | Unknown | + + + | Ethnic Group | Unknown | + + + Author + + + | Author | [facility] | | | and [place] | + + + | Organization | [facility] | | | [...] Team Providers + +------+ + | Care Telephone Services Sales Representative Name | Role | Phone | + [...] Radiology | Diagnoses | Francis, | [facility] | | | | | CAD, | MD Hans | Medicine | | | | | multiple | [address] | | | | | vessel | [address] | [place], | | | | | Ischemic | [place], | [place] | | | | | cardiomyopat | [place] [address] | [address] | | | | | hy | Phone: | Phone: | | | | | Congestive | [phone] | [phone] | | | | | heart | Fax: | Fax: | | | | | failure, | [phone] | [phone] | | | | | unspecified | [...] + + | 08/24/ | Hospital | [facility] | Hans Blanco, | | | 2020 | Encounter | MED CTR NUCLEAR | [address] | | | | | MEDICINE [address] | [address] [place], | | | | | [place], | [place] [address] | | | | | [place] [address] | [phone] | | | | | [phone] | | | +--------+ + + + [...] [address] | | | | | | [place], | | | | | | [place] [address] | | | | | | [phone] | | | | | | | | +--------+---------+ + + + | 02/25/ | Office | Cardiology | Hans Blanco, | | | 2019 | Visit | | MD [address] | | | | | | [place], | | | | | | [place] [address] | | | | | | [phone] | | | | | | | [...]
--- OUTSIDE RECORDS SUMMARY | ~2020-01-03 | XMS | Encounter Summary ---
Demographics + + + | Address | [address] | | | [place] [address] | + + + | Home Phone | | + + + | Preferred Language | Unknown | + + + | Marital Status | | + + + | Mandaen Affiliation | 1077 | + + + | Race | Unknown | + + + | Ethnic Group | Unknown | + + + Author + + + | Author | [facility] | | | and [place] | + + + | Organization | [facility] | | | [...] Team Providers + +------+ + | Care Environmental Science Technician Name | Role | Phone | + +------+ + | Osbaldo Wood MD | PCP | | + +------+ + Encounter Details +--------+ + + + + | Date | Type | Department | Care Team | Description | +--------+ + + + + | 02/28/ | Orders Only | [facility] | Sheldon Nye, | | | 2014 | | NEPHROLOGY [place] | RADIO INTERFERENCE SUPERVISOR [address] | | | | | [address] | [place] | | | | | [address] [place] [place] | [place] | | | | | [address] | [address] | | | | | [phone] | [phone] | | | | | | | [...] [address] | | | | | | [place], | | | | | | [place] [address] | | | | | | [phone] | | | | | | | | +--------+---------+ + + + | 02/25/ | Office | Cardiology | Hans Blanco, | | | 2019 | Visit | | MD [address] | | | | | | [place], | | | | | | [place] [address] | | | | | | [phone] | | | | | | | | +--------+---------+ + + + documented as of this encounter Procedures + +--------+ + + + | Procedure Name | Priori | Date/Time | Associated Diagnosis | Comments | | | ty | | | | + +--------+ + + + | EXTERNAL LAB: CBC | Routin | 02/28/2015 | | Results [...] + + + + + + | Clarity, | Clear | | EXTERNAL | | | Urine | | | LAB | | + + + + + + | Specific | 1.014 | 1.005 - 1.030 | EXTERNAL | | | [place], | | | LAB | | | [...] + + + + + + | Non- | 4.73 | 4.3 - 5.7 10 | EXTERNAL | | | Red Blood | | | LAB | | | Cells | | | | | | Counted | | | [...] | | | LAB | | | [facility] | | | | | + + [...]
--- OUTSIDE RECORDS SUMMARY | ~2020-01-03 | XMS | Encounter Summary ---
Demographics + + + | Address | [address] | | | [place] [address] | + + + | Home Phone | | + + + | Preferred Language | Unknown | + + + | Marital Status | | + + + | Advent Affiliation | 1077 | + + + | Race | Unknown | + + + | Ethnic Group | Unknown | + + + Author + + + | Author | [facility] | | | and [place] | + + + | Organization | [facility] | | | [...] Team Providers + +------+ + | Care Artist Agent Name | Role | Phone | + [...] | | | | | | | st myers | | | | | | | lead | | | | | | | revision | | | | | | | Procedures | | | | | | | CV EP PM | | | | | | | UPGRADE | | | +--------+--------+ + + + + Encounter Details +--------+---------+ + + + | Date | Type | Department | Care Team | Description | +--------+---------+ + + + | 10/18/ | Surgery | [facility] | Hans Blanco, | CV EP LEAD | | 2019 | | MED CTR CV INTRA OP | MD [address] | PLACEMENT/REVISION | | | | [address] | [place], | | | | | [place], [place] | [place] [address] | | | | | [address] | [phone] | | | | | [phone] | | | +--------+---------+ + + + [...] + + + | Blood Pressure | 110/66 | 10/19/2019 9:00 AM | | | | | PDT | | + + + + + | Pulse | 62 | 10/19/2019 9:00 AM | | | | | PDT | | + + + + + | Temperature | 35.7 C (96.3 F) | 10/19/2019 10:22 AM | | | | | PDT | | + + + + + | Respiratory Rate | 12 | 10/19/2019 9:00 AM | | | | | PDT | | + + + + + | Oxygen Saturation | 97% | 10/19/2019 9:00 AM | | | | | PDT | | + + + + + | Inhaled Oxygen | - | - | | | Concentration | | | | + + + + + | Weight | 95.2 kg (209 lb 14.1 | 10/19/2019 9:00 AM | | | | oz) | PDT | | + + + + + | Height | 185.4 cm (6' 1") | 10/19/2019 9:00 AM | | | | | PDT | | + + + + + | Body Mass Index | 27.69 | 10/19/2019 9:00 AM | | | | | PDT [...] + documented as of this encounter Discharge Instructions Instructions Ashley Scott RN - 10/19/2019Formatting of this note might be different fro m the original. Recovery After Procedural Sedation (Adult) You have been given medicine by vein to make you sleep during your procedure. This may have included both a pain medicine and sleeping medicine. Most of the effects have worn off. But you may still have some drowsiness for the next 6 to 8 hours. Home care Follow these guidelines when you get home: For the next 8 hours, you should be watched by a responsible adult. This person should make sure your condition is not getting worse. Don't drink any alcoholfor the next [address], operate dangerous machinery,make important business or personal decisions, o r sign legal documentsduring the next 24 hours. Note: Your healthcare provider may tell you not to take any medicine by mouth for pain or s leep in the next 4 hours. These medicines may react with the medicines you were given in the hospital. This could cause a much stronger response than usual. Follow-up care Follow up with your healthcare provider if you are not alert and back to your usual level o f activity within 12 hours. When to seek medical advice Call your healthcare provider right away if any of these occur: Drowsiness gets worse Weakness or dizziness gets worse Repeated vomiting You can't be awakened Date Last Reviewed: 03/27/201619990889-7451 [employer]. [address] [id number]. All [facility] ts reserved. This information is not intended as a substitute for professional medical care. Always follow your healthcare professional's instructions. Incision Care Remember: Follow-up visits allow your healthcare provider to make sure your incision is hea ling well. Be sure to keep your appointments. Stitches (sutures),surgical johnny, special strips of surgical tape, or surgical skin gl ue may be used to close incisions. They also help stop bleeding and speed healing. To help y our incision heal, follow the tips on this handout. Home care Tips for home care include the following: Always wash your hands before and after touching your incision. Keep your incision clean and dry. Avoid doing things that could cause dirt or sweat to get on your incision. Don t pick at scabs. They help protect the wound. Keep your incision out of water. Take a sponge bath to avoid getting your incision wet, unless your healthcare provider tell s you otherwise. Ask your provider when can you take a shower or bathe. Ask your provider about the best way to keep your incision dry when bathing or showering. Pat stitches dry if they get wet. Don t rub. Leave the bandage (dressing) in place until you are told to remove it or change it. Change it only as directed, using clean hands. After the first 12 hours, change your dressing every 24 hours, or as directed by your [facility]. Change your dressing if it gets wet or soiled. Care for specific closures Follow these guidelines unless yourhealthcare provider tells you otherwise: Stitches or johnny. Once you no longer need to keep these dry, clean the wound daily. Firs t remove the bandage using clean hands. Then wash the area gently with soap and warm water. Use a wet cotton swab to loosen and remove any blood or crust that forms. After cleaning, pu t a thin layer of antibiotic ointment on. Then put on a new bandage. Skin glue. Don t put liquid, ointment, or cream on your wound while the glue is in place. Avoid activities that cause heavy sweating. Protect the wound from sunlight. Do not scratc h, rub, or pick at the glue. Do not put tape directly over the glue.The glue should peel o ff within 5 to 10 days. Surgical tape. Keep the area dry. If it gets wet, blot the area dry with a clean towel. [place] gical tape usually falls off within 7 to 10 days. If it has not fallen off after 10 days, co ntact your healthcare provider before taking it off yourself. If you are told to remove the tape,put mineral oil or petroleum jelly on a cotton ball. Gently rub the tape until it is removed. Changing your dressing Leave the dressing (bandage) in place until you are told to remove it or change it. Follow the instructions below unless told otherwise by your healthcare provider: Always wash your hands before changing your dressing. After the first48 hours, the incision wound usually will have closed. At this point, leav e the incision uncovered and open to the air.If the incision has not closed keep it covere d. Cover your incision only if your clothing is rubbing it or causingirritation. Change your dressing if it gets wet or soiled. Follow-up care Follow up with your healthcare provider to ask how long sutures or johnny should be left i n place. Be sure to return for stitch or staple removal as directed. If dissolving stitches were used in your mouth, these will not need to be removed. They should fall out or dissolve on their own. If tape closures were used, remove them yourself when your provider recommends if they have not fallen off on their own. Ifskin glue was used, the glue will wear off by itself. When to seek medical care Call your healthcare provider if you have any of the following: More pain, redness, swelling, bleeding, or foul-smelling discharge around the incision area Fever of 100.4F (38C) or higher, or as directed by your healthcare provider Shaking chills Vomiting or nausea that doesn't go away Numbness, coldness, or tingling around the incision area, or changes in skin color Opening of the sutures or wound Stitches or johnny come apart or fall out or surgical tape falls off before 7 days or as d irected by your healthcare provider Date Last Reviewed: 05/10/201619995597-9524 [employer]. [address] [place] [address]. All righ ts reserved. This information is not intended as a substitute for professional medical care. Always follow your healthcare professional's instructions. Care of Your Incision- After Pacemaker or ICD Implantation, Battery/Generator change ? Surgical adhesive/glue has been applied to your incision site. Leave your incision open to air. Do not apply any ointments, creams or dressings. The glue will fall off on its own over time. ? Look at your incision every day. Call the Cardiology Clinic if you notice any redness, sw elling or drainage. ? Wear loose clothing over the area of your incision as needed to avoid skin irritation. ? You may shower normally after your procedure. DO NOT rub the incision site with a towel. Instead, blot it dry. Activity ? Plan to relax at home the first day following your procedure. ? To promote healing, use gentle, small, and slow movements of the affected arm. Do not li ft the affected shoulder/arm more than 90 degrees or above your head. Do not do any aggress malik stretching or heavy lifting (over 10 lbs) as this could affect healing of the incision. (only for new implants) ? You may return to your normal activities three weeks after your procedure. ? Avoid swimming and hot tubs/whirlpools until your incision is completely healed (usually 6 8 weeks). ? You may use microwave ovens, electric blankets and heating pads. Cellular phones should b e used on the side opposite your implant. ? Talk to your doctor if you have any specific questions or needs about returning to work. ? Carry your DEVICE IDENTIFICATION CARD with you at all times! Follow-up Appointment (Cardiology Clinic [phone]) ? Your follow-up wound check appointment will be approximately 1 week after your procedure. Your follow-up device check appointment will be approximately 3 months after your procedure . ? If you do not receive notification of your follow- up appointment, please call the Cardio logy Clinic. ? Call the Cardiology Clinic if you have any questions or concerns about your procedure or are having any new symptoms. Warning Signs of Possible Heart Problems: It is important to keep your residential sales representative updated on any symptoms you may experience that c ould indicate heart problems. They include, but are not limited to the following: Pain or pressure in your chest or shoulder that radiates or is accompanied by sweating, nausea or vomiting. A fever of 100.5F or greater, chills or sweating. Palpitations in your chest or shortness of breath. Bruising or bleeding for no reason. Swelling, drainage, redness or bleeding at pacemaker/ICD insertion site. Call 911 for any chest pain/pressure that does not go away with medication or rest or for a ny device-delivered shock. You should be seen at the nearest emergency room! documented in this encounter Medications at Time [...] + + documented as of this encounter H&P Notes Hans Blanco MD - 10/19/2019 9:42 AM PDTMr. Pinon's chart was reviewed in detail, an d no changes have occurred since the recent note. Also, he was examined by me today and the re are no changes in the heart and lung exam. Mr. Pinon is still appropriate candidate for Atrial lead repositioning and we will proceed with that today. An explanation of the proced ure, including the risks, benifits and alternatives to the procedure were discussed with the patient and consent has been obtained. Hans Leach MD - 10/14/2019 8:30 AM PDT Subjective: Patient ID: Wilmer Pinon is a 83 y.o. male Participants: Patient Participant is currently at home Participant verbally confirmed the choice to initiate care by, and consents to receive care by Telephone. HPI: He has a history of asymptomatic irreversible bradycardia, coronary artery disease, post CA BG 1990,stage III chronic kidney disease, essential hypertension and mixed hyperlipidemia. On 10/02/2019, patient underwent successful pacemaker implantation. Since that time, patient did feel better for about one week. Then an automatic download was done over the weekend sh owing atrial lead was dislodged. Chest xray from yesterday was performed and confirmed lead dislodgment. Today, he does reports feeling fatigue. He has occasional dizziness and lightheadedness. He has not been active. He denies any chest pain or discomfort at rest or with exertion. He hollis s not noted any shortness of breath. He has not had any palpitations. He has not had any le g swelling. Patient has not been sleeping well. Review of Systems Constitutional: Negative for malaise/fatigue. Respiratory: Negative for shortness of breath. Cardiovascular: Negative for chest pain, palpitations and leg swelling. Neurological: Positive for dizziness. Negative for weakness. Lightheaded = Yes BP (!) 155/91 | Pulse 65 These vitals were taken by patient with his own blood pressure m marshall. Assessment & Plan 1. Bradycardia Today, patient reports dizziness and lightheaded. Energy level is poor. Remote pacemaker kirsten mackey suggest atrial lead dislodgment. Chest x-ray from 10/09/2019 confirms atrial lead dislod gment. 2. Coronary artery disease involving [place] coronary artery of [place] heart without angina pectoris Today, he is asymptomatic. 3. Essential hypertension Today, his blood pressure is elevated. Clinical discussion length: 11-20 min ([id number]) Patient has not been seen in office within the past 7 days, and outcome of this call is not to recommend soonest available office visit. Follow up Instructions: 1. Schedule patient for atrial lead repositioning. The risks and benefits of the procedure including alternative treatment were discussed with the patient in length. The patient decid es to proceed with the procedure. 2. Check blood pressure x 2 weeks will be mailed to patient. 3. I recommend a therapeutic lifestyle change including walking 30 minutes a day, choosing healthy choices of diet and 7 hours of high quality sleep a night. 4. Follow up in three months OC/thresh check. RESULTS- I reviewed reports from [facility]: Xr Chest Pa And Lateral Result Date: 10/13/2019 XR CHEST PA AND LATERAL 10/13/2019 1:19 PM HISTORY: possible atrial lead dislodgement. COMPAR HECTOR: Multiple priors. Findings: There is a left pacemaker with leads to the heart demonstra ting the atrial lead to be in a more inferior location compared to 10/02/2019. Sternotomy wir es and mediastinal clips are noted. Heart size is normal. There are atherosclerosis and tort uosity of the aorta. Mediastinum demonstrates no acute findings. Central pulmonary vasculatu re is normal. Mild scarring are in the lung bases. There is moderate spondylosis. Left pacemaker with leads to the heart demonstrating the atrial lead to be in a more inferi or location compared to 10/02/2019. Dictated and Signed by: Justus Valdivia MD Electronically s igned: 10/13/2019 2:47 PM Xr Chest Pa And Lateral Result Date: 10/02/2019 PA AND LATERAL CHEST 10/02/2019 4:13 PM CLINICAL HISTORY: post cardiac device procedure, doc ument lead position and rule out pneumothorax COMPARISON: Radiography February 2018 FINDING S: A dual lead left subclavian pacemaker is now present, with intact appearing leads termina ting in the region of the right atrial appendage and anterior right ventricle of the heart. Intact sternal wires remain in position. There is similar borderline enlargement of the ca rdiac silhouette with mild prominence of the pulmonary vasculature. The lungs are clear all owing for lordotic positioning, without visible pneumothorax or pleural effusion. Bones and soft tissues are unremarkable. 1. SATISFACTORY APPEARANCE OF THE DUAL LEAD LEFT SUBCLAVIAN PACEMAKER. NO VISIBLE PNEUMOT HORAX. THERE IS SIMILAR BORDERLINE ENLARGEMENT OF THE CARDIAC SILHOUETTE. Dictated and Sign ed by: Heron Mathis MD documented in this encounter Plan of Treatment +--------+---------+ + + + | Date | Type | Specialty | Care Team | Description | +--------+---------+ + + + | 01/20/ | Office | Cardiology | Hans Blanco, | | 2019 | Visit | | [facility] | | | | | | [place], | | | | | | [place] [address] | | | | | | [phone] | | | | | | | | +--------+---------+ + + + | 02/25/ | Office | Cardiology | Hans Blanco, | | | 2019 | Visit | | [address] [facility] | | | | | | [place], | | | | | | [place] [address] | | | | | | [phone] | | | | | | | | +--------+---------+ + + + documented as of this encounter Procedures + +--------+ + + + | Procedure Name | Priori | Date/Time | Associated Diagnosis | Comments | | | ty | | | | + +--------+ + + + | ECG 12 LEAD | Routin | 10/19/2019 | | Results for this | | | e | 1:00 PM | | procedure are in the | | | | PDT | | results section. | + +--------+ + + + | ECG 12 LEAD | Routin | 10/19/2019 | | Results for this | | | e | 12:57 PM | | procedure are in the | | | | PDT | | results section. | + +--------+ + + + | XR CHEST PA AND | Routin | 10/19/2019 | | Results for this | | LATERAL | e | 11:37 AM | | procedure are in the | | | | PDT | | results section. | + +--------+ + + + | CV EP PROCEDURE | Routin | 10/19/2019 | | Results for this | | | e | 11:31 AM | | procedure are in the | | | | PDT | | results section. | + +--------+ + + + documented in this encounter Results ECG 12 lead (10/19/2019 1:00 PM PDT) + + + + + + | Component | Value | Ref Range | Performed | Pathologist | | | | | At | Signature | + + + + + + | VENTRICULAR | 100 | BPM | [facility] | | | RATE EKG | | | | | + + + + + + | ATRIAL RATE | 100 | BPM | [facility] | | + + + + + + | QRS | 168 | ms | [facility] | | | DURATION | | | | | + + + + + + | Q-T | 432 | ms | [facility] | | | INTERVAL | | | | | + + + + + + | Q-T | 557 | ms | [facility] | | | INTERVAL | | | | | | (CORRECTED) | | | | | + + + + + + | QRS AXIS | 96 | degrees | [facility] | | + + + + + + | T AXIS | -81 | degrees | [facility] | | + + + + + + | INTERPRETAT | AV dual-paced | | [facility] | | | ION TEXT | rhythmAbnormal ECGWhen | | | | | | compared with ECG of | | | | | | 19-OCT-2019 12:57, | | | | | | (Unconfirmed)Vent. rate | | | | | | has increased BY 40 | | | | | | BPMConfirmed by CLIVE | | | | | | LAVELLE SIMMONS ([id number]) on | | | | | | 10/20/2019 5:41:48 AM | | | | + + [...] | | | + +---------+ + + ECG 12 lead (10/19/2019 12:57 PM PDT) + + + + + + | Component | Value | Ref Range | Performed | Pathologist | | | | | At | Signature | + + + + + + | VENTRICULAR | 60 | BPM | [facility] | | | RATE EKG | | | | | + + + + + + | ATRIAL RATE | 60 | BPM | [facility] | | + + + + + + | P-R | 236 | ms | [facility] | | | INTERVAL | | | | | + + + + + + | QRS | 176 | ms | [facility] | | | DURATION | | | | | + + + + + + | Q-T | 496 | ms | [facility] | | | INTERVAL | | | | | + + + + + + | Q-T | 496 | ms | [facility] | | | INTERVAL | | | | | | (CORRECTED) | | | | | + + + + + + | QRS AXIS | 93 | degrees | [facility] | | + + + + + + | T AXIS | -60 | degrees | [facility] | | + + + + + + | INTERPRETAT | AV dual-paced rhythm | | [facility] | | | ION TEXT | with prolonged AV | | | | | | conductionAbnormal | | | | | | ECGWhen compared with | | | | | | ECG of 02-OCT-2019 | | | | | | 16:53,Vent. rate has | | | | | | decreased BY 40 | | | | | | BPMConfirmed by CLIVE | | | | | | LAVELLE SIMMONS ([id number]) on | | | | | | 10/20/2019 5:41:32 AM | | | | + + [...] | | | + +---------+ + + XR Chest PA and Lateral (10/19/2019 11:37 AM PDT) + + | Specimen | + + | | + + + + + | Impressions | Performed At | + + + | 1. MORE APPROPRIATE POSITIONING OF THE ATRIAL PACEMAKER LEAD, | [facility] | | NOW PROJECTING ANTERIORLY AT THE LEVEL OF THE RIGHT ATRIAL APPENDAGE. | | | THE VENTRICULAR LEAD IS STABLE, AGAIN PROJECTING ANTERIORLY AT THE | | | LEVEL OF THE RIGHT VENTRICLE. NO VISIBLE COMPLICATION. | | | Dictated and Signed by: Heron Mathis MD Electronically signed: | | | 10/19/2019 2:16 PM | | + + + + + + | Narrative | Performed At | + + + | PA AND LATERAL CHEST 10/19/2019 11:17 AM CLINICAL HISTORY: post | [facility] | | cardiac device procedure, document lead position and rule out | | | pneumothorax COMPARISON: Radiographs May 5 and more remote imaging | | | FINDINGS: A dual-lead left subclavian pacemaker is again | | | apparent. There is similar positioning of the ventricular lead | | | anteriorly at the level of the right ventricle, while the atrial lead | | | has been repositioned and now projects anteriorly at the level of | | | the right atrial appendage. There is similar borderline to mild | | | enlargement of the cardiac silhouette. Sternal wires and cardiac | | | surgery clips persist. Mediastinum and pulmonary vasculature are | | | otherwise unremarkable. The lungs are clear without pneumothorax or | | | pleural effusion. Bones and soft tissues are unremarkable. | | + + + + + | Procedure Note | + + | Maciel, Rad Results In - 10/19/2019 2:19 PM PDT PA AND LATERAL CHEST 10/19/2019 11:17 AM | | | | CLINICAL HISTORY: post cardiac device procedure, document lead position and rule | | out pneumothorax | | | | COMPARISON: Radiographs May 5 and more remote imaging | | | | FINDINGS: A dual-lead left subclavian pacemaker is again apparent. There is | | similar positioning of the ventricular lead anteriorly at the level of the right | | ventricle, while the atrial lead has been repositioned and now projects | | anteriorly at the level of the right atrial appendage. There is similar | | borderline to mild enlargement of the cardiac silhouette. Sternal wires and | | cardiac surgery clips persist. Mediastinum and pulmonary vasculature are | | otherwise unremarkable. The lungs are clear without pneumothorax or pleural | | effusion. Bones and soft tissues are unremarkable. | | | | IMPRESSION: | | | | 1. MORE APPROPRIATE POSITIONING OF THE ATRIAL PACEMAKER LEAD, NOW PROJECTING | | ANTERIORLY AT THE LEVEL OF THE RIGHT ATRIAL APPENDAGE. THE VENTRICULAR LEAD IS | | STABLE, AGAIN PROJECTING ANTERIORLY AT THE LEVEL OF THE RIGHT VENTRICLE. NO | | VISIBLE COMPLICATION. | | | | Dictated and Signed by: Heron Mathis MD | | Electronically signed: 10/19/2019 2:16 PM | + + + +---------+ + + | Performing | Address | City/State/Zipcode | Phone Number | | Organization | | | | + +---------+ + + | [facility] | | | | + +---------+ + + CV EP PROCEDURE (10/19/2019 11:31 AM PDT) + + | Specimen | + + | | + + + + -+ | Narrative | Performed At | + + -+ | PERMANENT | [facility] | | PACEMAKER IMPLANTATION PATIENT NAME: Wilmer Pinon : | | | 1935: AGE: 83 y.o.MEDICAL RECORD NUMBER: | | | [id number] PRIMARY CARE:ROGER DumontURGEON:Hans | | | MD Francis DATE OF PROCEDURE: 10/19/2019 PROCEDURES | | | PERFORMED:1. Atrial lead repositioning INDICATIONS: 1. Atrial | | | lead dislodgment DESCRIPTION OF PROCEDURE: After informed consent was | | | obtained, the patient was taken to the senior laboratory technician. 1 g of cefazolin | | | was given intravenously. Patient was hooked up to EKG, pulse | | | oximetry and blood pressure monitoring. All parameters were kept | | | stable during procedure. The [employer] pacemaker plastic products sales representative was | | | present in the operating room. Patient received 1 mg of Versed and | | | 50 mcg of fentanyl intravenously for conscious sedation during the | | | procedure. The left shoulder area was prepped and draped in the | | | standard fashion. Fluoroscopy was utilized during the procedure. | | | Patient was positioned supine with wedge pillow placed under | | | bilateral lower extremities. Under sterile technique, and 30 mL of | | | 2:3 ratio of 1% lidocaine and 0.5% marcaine without epinephrine | | | injection for local anesthesia, Approximately 3 cm below the lower | | | border of left clavicle, in the mid subclavicular area, a 3 to 6 cm | | | long lateral incision was made with a #15 blade. The incision was | | | extended by cautery down to the prepectoral fascia. Pacemaker | | | generator was exposed and removed from the pocket. Atrial lead was | | | disconnected from the generator and confirmed atrial lead dislodgment. | | | Atrial lead helix was retracted. Atrial lead was repositioned into | | | the right atrial appendage and the helix was re-extended. Testing | | | revealed a satisfaction numbers. Atrial lead was reconnected to the | | | pacemaker generator. Both leads were checked for model and serial | | | numbers, and connected to a pacemaker generator. Set screws, both, | | | were securely ratcheted. Both leads were tight and snug. With | | | ratcheting the ventricular and atrial leads, there was evidence of | | | ventricular and atrial tracking and pacing, respectively. The leads | | | were coiled and placed behind the fascia. The pocket was flushed | | | with normal saline. Hemostasis was obtained. A two layer running | | | closure was performed with a 2-0 Vicryl for prepectoral fascia and | | | subcutaneous fatty tissue. Continuous subcuticular suturing was | | | performed with a 4-0 Vicryl. The skin sealed with a layer of | | | Dermabond. Pacemaker interrogation and programming were performed | | | with details as mentioned below. Estimated blood loss was 10 cc mL. I | | | reviewed the patient's pre-sedation assessment and vital signs, | | | supervised and directed the administration of moderate sedation with | | | continuous gswg-fl-[id number] attendance. My intra-service time was 45 | | | minutes. See the procedure log for more details. COMPLICATIONS: | | | There were no complications. The patient tolerated the procedure | | | well. Postop chest x-ray revealed that the atrial lead, ventricular | | | lead and pacemaker generator were in good position. There is no | | | evidence of pneumothorax. DEVICE INFORMATION: A. Pacemaker | | | generator: [employer], model #: 2272, serial #: [id number]. B. Atrial | | | lead: [employer], length 46 cm, model #: 8 TC, serial #: [id number]. | | | C. Ventricular lead: [employer], length 52 cm, model #: 8 TC, | | | serial #: [id number]. PACEMAKER TESTING: A. Atrial lead: Sensing 2 | | | mV, threshold 1 V at 0.4 ms, resistance 30 ohms. B. Ventricular | | | lead: Sensing 10.8 mV, threshold 0.75 V at 0.4 ms, resistance 490 | | | ohms. PACEMAKER TESTING: Mode: DDD. Lower rate limit: 60 Ppm. Upper | | | limit: 120 Ppm. Hans Blanco MD10/19/2019 12:19 PM | | |Dermabond. Pacemaker interrogation and programming were performed with | | |details as mentioned below. | | | | | |Estimated blood loss was 10 cc mL. I reviewed the patient's pre-sedation | | |assessment and vital signs, supervised and directed the administration of | | |moderate sedation with continuous cmqq-jm-gjts attendance. My | | |intra-service time was 45 minutes. See the procedure log for more details. | | | | | | | | |COMPLICATIONS: There were no complications. The patient tolerated the | | |procedure well. Postop chest x-ray revealed that the atrial lead, | | |ventricular lead and pacemaker generator were in good position. There is | | |no evidence of pneumothorax. | | | | | |DEVICE INFORMATION: | | |A. Pacemaker generator: [employer], model #: 2272, serial #: [id number]. | | | | | |B. Atrial lead: [employer], length 46 cm, model #: 8 TC, serial #: [id number] | | |[id number]. | | | | | |C. Ventricular lead: [employer] Ye[employer], length 52 cm, model #: 2088 TC, serial #: | | |[id number]. | | | | | |PACEMAKER TESTING: | | |A. Atrial lead: Sensing 2 mV, threshold 1 V at 0.4 ms, resistance 30 | | |ohms. | | | | | |B. Ventricular lead: Sensing 10.8 mV, threshold 0.75 V at 0.4 ms, | | |resistance 490 ohms. | | | | | |PACEMAKER TESTING: | | |Mode: DDD. Lower rate limit: 60 Ppm. Upper limit: 120 Ppm. | | | | | | | | |Hans Blanco MD | | |10/19/2019 12:19 PM | | | | | | | | + + -+ + +---------+ + + | Performing | Address | City/State/Zipcode | Phone Number | | Organization | | | | + +---------+ + + | [facility] | | | | + +---------+ + + documented in this encounter Visit Diagnoses + + | Diagnosis | + + | Displacement of atrial pacemaker leads, subsequent encounter | + + documented in this encounter Administered Medications + +--------+---------+------+------+------+ | Medication Order | MAR | Action | Dose | Rate | Site | | | Action | Date | | | | + +--------+---------+------+------+------+ + +---+ | acetaminophen (TYLENOL) tablet | | | 650 mg 650 mg, Oral, EVERY 6 | | | HOURS PRN, Pain, Fever, Starting | | | 10/19/19 at 1150, | | | Post-op/Phase II | | + +---+ | | | + +---+ + +-------+ +-----+---+---+ | ceFAZolin (ANCEF, KEFZOL) 1 g | Given | 10/19/19 | 1 g | | | | in sterile water 10 mL syringe | | 20 10:31 | | | | | (100 mg/mL) 1 g, Intravenous, | | AM PDT | | | | | Prior to Incision, Starting Mon | | | | | | | 10/19/19 at 0934, For 1 dose, Keep | | | | | | | in refrigerator. Give IV push | | | | | | | over 3-5 minutes., Pre-op, | | | | | | | Indications: Surgical Prophylaxis | | | | | | + +-------+ +-----+---+---+ +---+---+ | | | +---+---+ + +-------+ +--------+---+---+ | fentaNYL (PF) injection ONCE | Given | 10/19/19 | 50 mcg | | | | PRN, Starting 10/19/19 at | | 20 10:39 | | | | | 1039, Intra-op | | AM PDT | | | | + +-------+ +--------+---+---+ +---+---+ | | | +---+---+ + +-------+ +--------+---+ + | lidocaine 1% 30 mL in | Given | 10/19/19 | 20 mLs | | Surgical | | bupivacaine (PF) (MARCAINE) 0.5% | | 20 10:42 | | | Site | | 30 mL Optesia Mixture ONCE PRN, | | AM PDT | | | | | Starting 10/19/19 at 1042, | | | | | | | Intra-op | | | | | | + +-------+ +--------+---+ + +---+---+ | | | +---+---+ + +-------+ +-------+---+ + | lidocaine buffered 0.9% | Given | 10/19/19 | 9 mLs | | Surgical | | injection ONCE PRN, Starting Mon | | 20 10:41 | | | Site | | 10/19/19 at 1041, Intra-op | | AM PDT | | | | + +-------+ +-------+---+ + +---+---+ | | | +---+---+ + +-------+ +------+---+---+ | midazolam (VERSED) 1 mg/mL | Given | 10/19/19 | 1 mg | | | | injection ONCE PRN, Starting Mon | | 20 10:39 | | | | | 10/19/19 at 1039, Intra-op | | AM PDT | | | | + +-------+ +------+---+---+ + +---+ | | | + +---+ | oxyCODONE (ROXICODONE) tablet | | | 5-10 mg 5-10 mg, Oral, EVERY 4 | | | HOURS PRN, Pain, Starting Mon | | | 10/19/19 at 1150, Post-op/Phase II | | + +---+ | | | + +---+ + +---------+ +---+-------+---+ | sodium chloride 0.9% (NS) | New Bag | 10/19/19 | | 125 | | | infusion at 125 mL/hr, | | 20 9:53 | | mL/hr | | | Intravenous, CONTINUOUS, Starting | | AM PDT | | | | | 10/19/19 at 1000, For | | | | | | | procedure only, not to exceed 1 | | | | | | | liter., Pre-op | | | | | | + +---------+ +---+-------+---+ +---+---+ | | | +---+---+ documented in this encounter
--- OUTSIDE RECORDS SUMMARY | ~2020-01-03 | XMS | Encounter Summary ---
Demographics + + + | Address | [address] | | | [place] [address] | + + + | Home Phone | | + + + | Preferred Language | Unknown | + + + | Marital Status | | + + + | Restorationism Affiliation | 1077 | + + + | Race | Unknown | + + + | Ethnic Group | Unknown | + + + Author + + + | Author | [facility] | | | and [place] | + + + | Organization | [facility] | | | [...] Team Providers + +------+ + | Care Bull Ladle Tender Name | Role | Phone | + [...] | | CAD, | MD Hans | [address] | | | | | multiple | [address] | [place], | | | | | vessel | [address] | [place] | | | | | Ischemic | [place], | [address] | | | | | cardiomyopat | [place] [address] | Phone: | | | | | hy | Phone: | [phone] | | | | | Congestive | [phone] | Fax: | | | | | heart | Fax: | [phone] | | | | | failure, | [phone] | | | | | | unspecified | | | | | | | HF | | | | | | | chronicity, | | | | | | | unspecified | | | | | | | heart | | | | | | | failure type | | | | | | | (HCC) | | | | | | | Procedures | | | | | | | ECHO | | | | | | | Complete | | | +--------+--------+ + + + + Reason for Visit Diagnostic/Screening (Routine) +--------+--------+ [...] | | CAD, | MD Hans | [address] | | | | | multiple | [address] | [place], | | | | | vessel | [address] | [place] | | | | | Ischemic | [place], | [address] | | | | | cardiomyopat | [place] [address] | Phone: | | | | | hy | Phone: | [phone] | | | | | Congestive | [phone] | Fax: | | | | | heart | Fax: | [phone] | | | | | failure, | [phone] | | | | | | unspecified | | | | | | | HF | | | | | | | chronicity, | | | | | | | unspecified | | | | | | | heart | | | | | | | failure type | | | | | | | (HCC) | | | | | | | Procedures | | | | | | | ECHO | | | | | | | Complete | | | +--------+--------+ + + + + Encounter Details +--------+ + + + + | Date | Type | Department | Care Team | Description | +--------+ + + + + | 08/24/ | Hospital | [facility] | Hans Blanco, | CAD, multiple | | 2020 | Encounter | MED CTR ECHO [address] | vessel; Ischemic | | | | [address] [place] | [place], | cardiomyopathy - | | | | [place] [address] | [place] [address] | ECHO Jun 2014 EF | | | | [phone] | [phone] | 55-60%; Congestive | | | | | | heart failure, | | | | | | unspecified HF | | | | | | chronicity, | | | | | | unspecified heart | | | | | | failure type (HCC); | | | | | | Ischemic | | | | | | cardiomyopathy | +--------+ + + + + Social [...] | | | | | | [place] [address] | | | | | | [phone] | | | | | | | | +--------+---------+ + + + | 02/25/ | Office | Cardiology | Hans Blanco, | | | 2019 | Visit | | MD Eda Howard | | | | | | [place], | | | | | | [place] [address] | | | | | | [phone] | | | | | | | | +--------+---------+ + + + documented as of this encounter Procedures + +--------+ + + + | Procedure Name | Priori | Date/Time | Associated Diagnosis | Comments | | | ty | | | | + +--------+ + + + | ECHO COMPLETE | Routin | 08/25/2019 | CAD, multiple | Results for this | | | e | 12:06 PM | vessel Ischemic | procedure are in the | | | | PDT | cardiomyopathy | results section. | | | | | Congestive heart | | | | | | failure, unspecified | | | | | | HF chronicity, | | | | | | unspecified heart | | | | | | failure type (HCC) | | + +--------+ + + + documented in this encounter Results ECHO Complete (08/25/2019 12:06 PM PDT) + [...] | | | | | | [place] | | | | | + +--------+ [...] + | Diagnosis | + + | CAD, multiple vessel Coronary atherosclerosis of unspecified type of vessel, [place] | | or graft | + + | Ischemic cardiomyopathy - ECHO Jun 2014 EF 55-60% Other specified forms of chronic | | ischemic heart disease | + + | Congestive heart failure, unspecified HF chronicity, unspecified heart failure type | | (HCC) | + + documented in this encounter"
--- OUTSIDE RECORDS SUMMARY | ~2020-01-03 | XMS | Encounter Summary ---
Demographics + + + | Address | [address] | | | [place] [address] | + + + | Home Phone | | + + + | Preferred Language | Unknown | + + + | Marital Status | | + + + | Mandaen Affiliation | 1077 | + + + | Race | Unknown | + + + | Ethnic Group | Unknown | + + + Author + + + | Author | [facility] | | | and [place] | + + + | Organization | [facility] | | [...] Team Providers + +------+ + | Care Continuous Improvement Facilitator Name | Role | Phone | + +------+ + | Osbaldo Wood MD | PCP | | + +------+ + Reason for Visit + +--------+ + | Reason | Onset | Comments | | | Date | | + +--------+ + | Blood Pressure Check | 08/20/ | Blood pressure log from 08/01-08/14. | | (Screening) | 2020 | | + +--------+ + Encounter Details +--------+ + + + + | Date | Type | Department | Care Team | Description | +--------+ + + + + | 08/20/ | Telephone | [facility] | Hans Blanco, | Blood Pressure Check | | 2019 | | CARDIOLOGY [address] [place] | (Screening) (Blood | | | | [place], | [place], | pressure log from | | | | [place] [address] | [place] [address] | 08/01-08/14.) | | | | [phone] | [phone] | | | | | | | [...] this encounter Miscellaneous Notes Telephone Encounter - Anusha Damian RN - 08/21/2019 2:15 PM PDTPatient's Alondra munoz notified ..........................................Anusha Damian RN on 08/21/19 at 2 :15 PM elephone Encount er - Hans Blanco MD - 08/21/2019 11:38 AM PDTNo med change. Thank you. elephone Encounter - Sissy Mcmullen Claim Service Representative - 08/21/2019 11:14 AM PDTFormatting of this note esthela ht be different from the original. Next Visit: SUW 08/28/2019 Blood pressure log received from patient as follows: Date BP AM Pulse AM BP PM Pulse PM 08/01 164/94 64 174/88 70 08/02 166/93 72 130/75 70 08/03 171/91 64 159/85 61 08/04 154/85 63 154/80 60 08/05 125/76 55 166/84 65 08/07 192/103 69 162/84 71 153/86 68 148/79 58 3 175/94 64 153/94 56 3/ 143/82 59 154/81 64 3/3 132/72 60 166/85 64 3/4 139/74 59 160/84 64 3/5 137/73 56 179/101 56 3/6 135/68 62 154/82 57 3/7 153/80 59 133/76 56 doc umented in this encounter Plan of Treatment +--------+---------+ + + + | Date | Type | Specialty | Care Team | Description | +--------+---------+ + + + | 01/20/ | Office | Cardiology | Hans Blanco, | | | 2019 | Visit | | MD Eda Howard | | | | | | [place], | | | | | | [place] [address] | | | | | | [phone] | | | | | | | | +--------+---------+ + + + | 02/25/ | Office | Cardiology | Hans Blanco, | | | 2019 | Visit | | MD Eda Howard | | | | | | [place], | | | | | | [place] [address] | | | | | | [phone] | | | | | | | | +--------+---------+ + + + documented as of this encounter Visit Diagnoses Not on filedocumented in this encounter"
--- OUTSIDE RECORDS SUMMARY | ~2020-01-03 | XMS | Encounter Summary ---
Demographics + + + | Address | [address] | | | [place] [address] | + + + | Home Phone | | + + + | Preferred Language | Unknown | + + + | Marital Status | | + + + | Mandaeism Affiliation | 1077 | + + + | Race | Unknown | + + + | Ethnic Group | Unknown | + + + Author + + + | Author | [facility] | | | and [place] | + + + | Organization | [facility] | | [...] Team Providers + +------+ + | Care Sifter Operator Name | Role | Phone | + +------+ + | Ana Maria Yaun MD | PCP | | + +------+ + Reason for Visit + + + | Reason | Comments | + + + | Wound Check | | + + + Follow Up (Routine) + +--------+ + + + + | Status | Reason | Specialty | Diagnoses / | Referred By | Referred To | | | | | Procedures | Contact | Contact | + +--------+ + + + + | Authorized | | Cardiology | Diagnoses | Yuan, | [facility] | | | | | Heart | Ana Maria Stewart MD | Cardiology | | | | | failure, | [address] | [address] | | | | | unspecified | [place], | [place], | | | | | (HCC) | [place] | [place] | | | | | Essential | [address] | [address] | | | | | (primary) | Phone: | Phone: | | | | | hypertension | [phone] | [phone] | | | | | | Fax: | Fax: | | | | | [employer] | [phone] | [phone] | | | | | tic heart | | | | | | | disease of | | | | | | | [place] | | | | | | | coronary | | | | | | | artery | | | | | | | without | | | | | | | angina | | | | | | | pectoris | | | | | | | Bradycardia, | | | | | | | unspecified | | | | | | | Procedures | | | | | | | CARD | | | | | | | DEVICE CHECK | | | + +--------+ + + + + Encounter Details +--------+ + + + + | Date | Type | Department | Care Team | Description | +--------+ + + + + | 10/28/ | Procedure | [facility] | Hans Blanco, | Sinoatrial node | | 2020 | visit | CARDIOLOGY [address] | MD [address] | dysfuntion - | | | | [place], | [place], | bradycardia (Primary | | | | [place] [address] | [place] [address] | Dx) | | | | [phone] | [phone] | | | | | | | [...] + + + | Blood Pressure | 120/68 | 10/29/2019 1:44 PM | | | | | PDT | | + + + + + | Pulse | 60 | 10/29/2019 1:44 PM | | | | | PDT | | + + + + + | Temperature | 36.8 C (98.2 F) | 10/29/2019 1:44 PM | | | | | PDT [...] documented as of this encounter Progress Notes Zaira Mcneil RN - 10/29/2019 1:30 PM PDTPatient is seen today 10 days status post atr ial lead revision. The wound is well approximated with no redness, mild bruising that is ade rly resolved, and mild swelling. Skin adhesive intact, there is no drainage. Patient denies fever, palpitations, chest pain, surgical pain, dizziness, lightheadedness, or shortness of breath. Patient reports that he is not fatigued like he was after lead dislodgement. Patient is reminded of precautions including not raising left arm above 90 degrees and not lifting more than 10 pounds for 3 weeks. In depth precaution education explained to patient and including not to use left arm to push up from chair or wheelchair. Rhona reports that he is being much more careful then he was the 1st time. Denies any activities that lacey kilgore have compromised precautions. Patient was instructed in pendulum arm swing and encouraged to walk. Reviewed signs and symptoms of infection including increased wound pain, swelling, redness, any drainage or fever. Patient and verbalized understanding. Electronically signed by: Zaira Mcneil RN 10/29/2019 1:50 PM documented in this e ncounter Plan of Treatment +--------+---------+ + + + | Date | Type | Specialty | Care Team | Description | +--------+---------+ + + + | 01/20/ | Office | Cardiology | Hans Blanco, | | 2019 | Visit | | MD Eda Howard | | | | | | [place], | | | | | | [place] [address] | | | | | | [phone] | | | | | | | | +--------+---------+ + + + | 02/25/ | Office | Cardiology | Hans Blanco, | | | 2019 | Visit | | [address] | | | | | | 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
--- OUTSIDE RECORDS SUMMARY | ~2020-01-03 | XMS | Encounter Summary ---
Demographics + + + | Address | [address] [facility] | | | [place] [address] | + + + | Home Phone | | + + + | Preferred Language | Unknown | + + + | Marital Status | | + + + | Druze Affiliation | 1077 | + + + | Race | Unknown | + + + | Ethnic Group | Unknown | + + + Author + + + | Author | [facility] | | | and [place] | + + + | Organization | [facility] | | | [...] Team Providers + +------+ + | Care Margin Analyst Name | Role | Phone | + [...] | | | | | | | SD [facility]ASER | | | | | | [...] | +--------+ + + + + | 07/30/ | Anesthesia | [facility] | Crescencio Govea | | | 2015 | Event | [facility] | MD Nitin [address] | | | | | [address] | [address] [place], [place] | | | | | [place], [place] | [address] | | | | | [phone] | [phone] | | | | | [phone] | | | +--------+ + + + + Anesthesia Record + + + + + | Procedure Name | Responsible | Anesthesia Start | Anesthesia Stop Time | | | Anesthesiologist | Time | | + + + + + | Cyber Laser | Crescencio Govea, | 07/30/14 1210 | 07/30/14 1327 | | Vaporization of the | MD | | | | Prostate (N/A | | | | | Bladder) | | | | + + + + + +----+---+ + + | Da | T | Event | Comment | | te | i | | | | | m | | | | | e | | | +----+---+ + + | 02 | 1 | | | | /2 | 1 | | | | 0/ | 5 | | | | 20 | 5 | | | | 15 | | | | +----+---+ + + | | 1 | An Checkout | Pre-use anesthesia machine/equipment checkout. | | | 2 | | | | | 0 | | | | | 0 | | | +----+---+ + + | | 1 | An Start | Room ready, anesthesia equipment checked, essential drugs & | | | 2 | | equipment available. Patient Identity checked, anesthesia plan | | | 1 | | explained and consent obtained. Patient transported to OR, | | | 0 | | Monitors applied. Reassessment prior to anesthesia | | | | | induction/procedure. | +----+---+ + + | | 1 | an rony now | IN OR #6 | | | 2 | | | | | 1 | | | | | 4 | | | +----+---+ + + | | 1 | AN | Per surgeon request. Orals given in SDSU. | | | 2 | Antibiotic | | | | 1 | declined | | | | 8 | | | +----+---+ + + | | 1 | Preoxygenat | Oxygen administered, patient sedated, ventilating spontaneously. | | | 2 | ed | | | | 2 | | | | | 0 | | | +----+---+ + + | | 1 | An | | | | 2 | Induction | | | | 2 | | | | | 1 | | | +----+---+ + + | | 1 | An | Smooth IV induction, easy mask airway. LMA placed and well | | | 2 | Intubation | seated. Breathing Circuit attached to LMA. BSEB/ETCO2 | | | 2 | | (aucultation and capnography) and placement confirmed. | | | 2 | | | +----+---+ + + | | 1 | an rony now | start | | | 2 | | | | | 3 | | | | | 8 | | | +----+---+ + + | | 1 | an royn now | PACU | | | 3 | | | | | 1 | | | | | 9 | | | +----+---+ + + | | 1 | An Stop | Patient handed off to recovery nurse. | | | 2 | | | | | 7 | | | +----+---+ + + +------+ | Meds | +------+ + + + | Name | Total | + + + | propofol | 160 mg | + + + | fentaNYL | 100 mcg | + + + | ondansetron | 4 mg | + + + | lactated ringers (LR) infusion | 1,100 mL | + + + + + | Name | + + | N2O Flow Rate (L/Min) | + + | O2 Flow Rate (L/Min) | + + | Insp O2 | + + | Exp SEV | + + | Air Flow Rate (L/Min) | + + + + | No blood administrations on file. | + + +--------+ + + + | Type | Details | Placement | Removal | +--------+ + + + | [READ | 07/30/14; 1100; healing within | 07/30/14 1100 by | 07/30/14 1545 by | | ONLY] | expectations; 07/30/14; 1545 | Carolina Jiagn RN | Ashlyn Benitez RN | | | | | | | Periph | | | | | eral | | | | | IV - | | | | | Single | | | | | Lumen | | | | | | | | | +--------+ + + + | Airway | Placement Date: 07/30/14; | 07/30/14 1222 by | 07/30/14 1333 by | | | Placement Time: 1222; Mask | Crescencio Govea, | Bettina Quezada RN | | | Ventilation: EZ; Attempts: 1; | MD | | | | Airway Type: oral, cuffed, | | | | | laryngeal mask; Size: 5; Tube | | | | | Reference Point: lip; Trauma: | | | | | none; Placement Check: verified | | | | | by capnography, verified by | | | | | auscultation; Placed By: | | | | | Anesthesiologist; Removal: per | | | | | protocol, removed by RN; Removal | | | | | Date: 07/30/14; Removal Time: | | | | | 1333 | | | +--------+ + + + | Read | 07/30/14; 1254; groin; no | 07/30/14 1254 by | 09/02/18 1342 by | | only - | dressing; 09/02/18 | Sony Guevara RN | User Epic | | | (Completed/Removed by Utility); | | | | Incisi | 1342 (Completed/Removed by | | | | on | Utility) | | | +--------+ + + + documented in this encounter Social History + +-------+ +--------+------+ | Tobacco [...] + + documented as of this encounter OR Notes Anesthesia Postprocedure Evaluation - Crescencio Govea MD - 07/30/2014 1:46 PM PSTForm atting of this note might be different from the original. ANESTHESIA POSTANESTHESIA EVALUATION Wilmer Pinon 78 y.o. male 1935 [id number] Procedure(s) Cyber Laser Vaporization of the Prostate (N/A Bladder) Filed Vitals: 07/30/14 1333 07/30/14 1335 07/30/14 1340 BP: 138/75 138/75 147/76 Pulse: 58 57 56 Temp: Resp: 17 11 10 SpO2: 99% 99% 99% Cooperates? Yes Mental Status Performs simple tasks. Respiratory Satisfactory - Airway patent (self maintained). Cardiovascular Satisfactory Blood pressure and heart rate acceptable Temperature Satisfactory Pain Satisfactory N/V Control Satisfactory Hydration Satisfactory No signs of dehydration Complications None apparent Electronically signed by Crescencio Govea MD 07/30/2014 13:[facility] Prepro cedure Evaluation - Crescencio Govea MD - 07/30/2014 11:40 AM PST ANESTHESIA PREANESTHESIA EVALUATION Wilmer Pinon 78 y.o. male 1935 [id number] Procedure(s): Cyber Laser Vaporization of the Prostate (N/A Bladder) Medical history, anesthesia, medications, allergy histories reviewed. ROS / Med History Ane No anesthesia complications. NPO status verified. CV Negative except where noted below. (+) hypertension, CAD, CHF. (+) Valvular disease Pulm Negative except where noted below. Neuro Negative except where noted below. Psych Negative except where noted below. Renal Negative except where noted below. GI/Hep Negative except where noted below. (+) hypercholesterolemia. Endo Negative except where noted below. (+) Diabetes: Physical Exam Airway MP II, TM >3 FB, Mouth opening >2 FB. Neck: full ROM, extends >30 degrees. Jaw protrus ion limited. Dental Grossly normal except where noted below.; CV Rhythm regular. Rate Normal. (-) murmur. Pulm Clear to auscultation bilaterally. Anesthesia Plan ASA 2 Type: General. Induction: Intravenous. Potential problems: None anticipated and none anticipated. Monitors: Standard ASA monitors. Consent statement:Anesthetic plan, alternatives, risks and benefits discussed with patient. Risks discussed included (but were not limited to): sore throat, pain, disability, perioper ative CV events, infection, muscle aches, voice injury, drug reaction, heart problems, nause a, respiratory events, . Consenting person understands and agrees to proceed. 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 Electronically Signed by: Crescencio Govea MD ESig date/time: 07/30/2014 11:40 documented in thi s encounter Plan of Treatment +--------+---------+ + + + | Date | Type | Specialty | Care Team | Description | +--------+---------+ + + + | 01/20/ | Office | Cardiology | Hans Blanco, | | | 2019 | Visit | | MD [address] | | | | | | [place], | | | | | | [place] [address] | | | | | | [phone] | | | | | | | | +--------+---------+ + + + | 02/25/ | Office | Cardiology | Hans Blanco, | | | 2019 | Visit | | [address] | | | | | | [place], | | | | | | [place] [address] | | | | | | [phone] | | | | | | | | +--------+---------+ + + + documented as of this encounter Visit Diagnoses Not on filedocumented in this encounter Administered Medications + +--------+ +---------+------+------+ | Medication Order | MAR | Action | Dose | Rate | Site | | | Action | Date | | | | + +--------+ +---------+------+------+ | fentaNYL injection PRN, Pain, | Given | 07/30/19 | 100 mcg | | | | Starting 07/30/14 at 1221, | | 15 12:21 | | | | | Anesthesia Intra-op | | PM PST | | | | + +--------+ +---------+------+------+ +---+---+ | | | +---+---+ + +---------+ +---+---+---+ | lactated ringers (LR) infusion | New Bag | 07/30/19 | | | | | at 100 mL/hr, Intravenous, | | 15 12:45 | | | | | CONTINUOUS, Starting 07/30/14 | | PM PST | | | [...] | | +---+---+ + +-------+ +------+---+---+ | ondansetron (ZOFRAN) injection | Given | 07/30/19 | 4 mg | | | | PRN, Nausea, Vomiting, Starting | | 15 12:18 | | | | | 07/30/14 at 1218, Anesthesia | | PM PST | | | | | Intra-op | | | | | | + +-------+ +------+---+---+ +---+---+ | | | +---+---+ + +-------+ +--------+---+---+ | propofol (DIPRIVAN) injection | Given | 07/30/19 | 160 mg | | | | PRN, Starting 07/30/14 at | | 15 12:21 | | | | | 1221, Anesthesia Intra-op | | PM PST | | | | + +-------+ +--------+---+---+ +---+---+ | | | +---+---+ documented in this encounter"
--- OUTSIDE RECORDS SUMMARY | ~2020-01-03 | XMS | Encounter Summary ---
Demographics + + + | Address | [address] | | | [place] [address] | + + + | Home Phone | | + + + | Preferred Language | Unknown | + + + | Marital Status | | + + + | Synagogue Affiliation | 1077 | + + + | Race | Unknown | + + + | Ethnic Group | Unknown | + + + Author + + + | Author | [facility] | | | and [place] | + + + | Organization | [facility] | | | and [...] Team Providers + +------+ + | Care Geothermal Heat Pump Machinist Name | Role | Phone | + +------+ + | Ana Maria Yuan MD | PCP | | + +------+ + Encounter Details +--------+ + + + + | Date | Type | Department | Care Team | Description | +--------+ + + + + | 10/01/ | Hospital | [facility] | Hnas Blanco, | Sinoatrial node | | 2020 - | Encounter | [facility] ICU [address] | dysfunction (HCC); | | | | [place], | [place], | [place] | | 04/[birth year]/ | | [place] [address] | [place] [address] | syncope; Bradycardia | | 2020 | | [phone] | [phone] | | | | | | | | | | | | Selina Morales-MD Anisa | | | | | | [address] | | | | | | [place] | | | | | | [address] | | | | | | | [...] + + + | Blood Pressure | 116/68 | 10/03/2019 12:22 PM | | | | | PDT | | + + + + + | Pulse | 74 | 10/03/2019 12:22 PM | | | | | PDT | | + + + + + | Temperature | 36 C (96.8 F) | 10/03/2019 12:22 PM | | | | | PDT | | + + + + + | Respiratory Rate | 18 | 10/03/2019 12:22 PM | | | | | PDT | | + + + + + | Oxygen Saturation | 94% | 10/03/2019 12:22 PM | | | | | PDT | | + + + + + | Inhaled Oxygen | - | - | | | Concentration | | | | + + + + + | Weight | 95 kg (209 lb 7 oz) | 10/03/2019 4:29 AM | | | | | PDT | | + + + + + | Height | 185.4 cm (6' 1") | 10/02/2019 2:00 PM | | | | | PDT | | + + + + + | Body Mass Index | 27.63 | 10/02/2019 2:00 PM | | | | | PDT [...] documented as of this encounter Discharge Summaries Alpa Wright MD - 10/03/2019 10:37 AM PDTFormatting of this note might be different fro m the original. 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 Escobar Procedures: S/p dual chamber pacemaker implantation on 10/01 Reason for Admission and hospital course: Please refer to the H&P for full details. In short, 83 y.o. male with a history of CAD/TUR P/hypothyroid who was transfer from [facility] ED due to syncope/bradycardia. Prior to tra nsfer he received versed, atropine. He was evaluated by Dr. Escobar. Underwent dual chamber pacemaker implantation on 10/01. Heart rate remained stable at 60-100; AV paced. Post procedure CXR revealed satisfactory appearanc e of dual lead left subclavian pacemaker, no pneumothorax. He was resumed back on home medication. He was discharged home in stable condition. Cardiol ogy office will give him for follow up appointment. Code Status: DNR (No Code) Disposition: Home Discharge Condition: good Follow-up Information Ana Maria Yuan MD In 5 days. Specialty: Internal Medicine Contact information: [address] [place] [id number] Discharge Medications Unchanged Medications Details acetaminophen [address] 650 mg rectally every 4 hours as needed for Fever. aka: TYLENOL allopurinol 100 mg tablet Take 100 mg by mouth Daily. aka: ZYLOPRIM amLODIPine 5 mg tablet TAKE ONE TABLET BY MOUTH DAILY aka: NORVASC aspirin 325 mg EC tablet Take 325 mg by mouth Daily. B COMPLEX 1 PO Take 1 tablet by mouth Daily. cetirizine 10 mg tablet Take 10 mg by mouth Daily. aka: zyrTEC cloNIDine 0.1 mg tablet Take 1 tablet by mouth Daily as needed. For systolic blood pressure of 160 or above aka: CATAPRES gabapentin 300 mg capsule Take 300 mg by mouth nightly. aka: NEURONTIN isosorbide mononitrate 30 mg ER tablet Take 30 mg by mouth Daily. Take one in the morning and somtime takes one in the Evening if chest pain aka: IMDUR levothyroxine 88 mcg tablet Take 88 mcg by mouth every morning (before breakfast). aka: SYNTHROID lisinopril 20 mg tablet Take 1 tablet by mouth 2 times daily. aka: PRINIVIL, ZESTRIL nitroglycerin 0.[address] 0.4 mg under the tongue every 5 minutes as needed for Chest pain. aka: NITROSTAT omeprazole 40 MG capsule Take 40 mg by mouth every morning (before breakfast). aka: priLOSEC potassium 99 mg tablet Take 1 tablet by mouth Daily. rosuvastatin 20 mg tablet Take 1 tablet by mouth nightly. aka: CRESTOR SLOW-MAG PO Take 1 tablet by mouth 2 times daily. torsemide 10 mg tablet Take 1 tablet by mouth Daily. aka: DEMADEX Studies With Pending Results: None Greater than 30 minutes were spent on discharge and coordination of post-hospital care. Electronically signed by: Alpa Wright MD, 10/03/2019 10:37 AM [facility] documented in this en counter Discharge Instructions Instructions Sunitha Bradley RN - 10/03/2019 Discharge Instructions for Pacemaker Implantation You have had a procedure to insert a pacemaker. Once inside your body, this small electroni c device helps keep your heart from beating too slowly. A pacemaker can't fix existing heart problems. But it can help you feel better and have more energy. As you recover, follow all of the instructions you are given, including those below. Activity Don't drive until your doctor says it's OK. Plan to have someone drive you home after th e procedure. Follow the instructions you are given about limiting your activity. If you are fitted with an arm sling, keep your arm in the sling for as long as your doct or tells you to. Most often, the sling will be removed the following day though you may be i nstructed to sleep with it on for a period to prevent damage to the pacemaker while it's hea ling. Don't raise your arm on the incision side above shoulder level or stretch your arm behin d your back for as long as directed by your doctor. This gives the leads a chance to secure themselves inside your heart. Ask your doctor when you can expect to return to work. Depending on the type of work you do, you may have restrictions until your labor union business representative clears you for unrestricted activity. You can still exercise. It's good for your body and your heart. Talk with your doctor ab out an exercise plan and the types of exercise to minimize the risk of damaging your pacemak er. Other precautions Follow your doctor's directions carefully for wound care. If there is a dressing, ask wh ether you should remove it or keep it on until your next visit. Never put any creams, lotion s, or products like peroxide on an incision unless your doctor tells you to. Do not get the incision wet until your doctor says it's OK. Every day, take your temperature and check your incision for signs of infection (redness , swelling, drainage, or warmth). Do this for 7 days or as advised by your doctor. Learn to take your own pulse. Keep a record of your results. Ask your doctor what pulse rate means you should call for medical attention. Before you receive any treatment, tell all healthcare providers (including your dentist) that you have a pacemaker. You will be given an ID card that contains information about your pacemaker. Always hernández y this card with you. You can show this card if your pacemaker sets off a metal detector. Yo u should also show it to avoid screening with a hand-held security wand. Keep your cell phone away from your pacemaker. Don't carry the phone in your shirt pocke t overlying the pacemaker, even when it's turned off. Stay away from strong magnets. Examples are those used in MRIs or in hand-held security wands. Some pacemakers are now safe to use with MRI scanners. Ask your doctor if you have bennett ch a pacemaker. Stay way from strong electrical hood. Examples are those made by radio transmitting to [employer], "[employer]" radios, and heavy-duty electrical equipment. Don't lean over the open franco of a running car. A running engine creates an electrical f ield. Most household and yard appliances will not cause any problems. If you use any large p ower tools, such as an industrial dot net architect, talk with your doctor. Follow-up care See your labor union business representative in the next 7 to 10 days. Call and make an appointment as soon as you get home. Make regular follow-up appointments with your doctor. He or she will check the pacemaker to make sure it's working properly. Plan on having periodic checkups with your healthcare provider to evaluate the battery l lety of your pacemaker. Depending on your device and how much your body uses the pacing funct ions of the pacemaker, you will need a new device generator implanted at some point, general ly about every 5 to 7 years. Some pacemakers have a built-in antenna that can transmit information such as trouble al erts over the internet to your doctor. Ask your doctor if your pacemaker is capable of remot e monitoring. [id number] Call 911 if you have: Chest pain Severe trouble breathing When to call your healthcare provider Call your healthcare provider right away if you have any of these: Dizziness Lack of energy Fainting spells Twitching chest muscles Rapid pulse or pounding heartbeat Shortness of breath Pain around your pacemaker Fever above 100.4 F (38 C) or higher, or as directed by your healthcare provider Other signs of infection such as redness, swelling, drainage, or warmth at the incision site Your incision is not healing or your incision separates or opens Hiccups that won't stop Redness, severe swelling, drainage, worsening pain, bleeding, or warmth at the incision site If your pacemaker generator feels loose or like it is wiggling in the pocket under the s kin Date Last Reviewed: 11/09/201519992833-9300 [employer]. [address] [place] [address], [place] [address]. All righ ts reserved. This information is not intended as a substitute for professional medical care. Always follow your healthcare professional's instructions. Understanding Bradycardia Your heart has an electrical system that sends signals to control the heartbeat. Any abnorm al change in the speed or pattern of the heartbeat is called an arrhythmia. An arrhythmia th at causes the heart to beat slower than normal is called bradycardia. There are many types o f bradycardia. In healthy children and adults, bradycardia is often normal, particularly dur ing sleep. Sometimes bradycardia is caused by failure of the heart s natural timer or fail ure of the electrical pathways within the heart. Depending on the type you have and how joshua re it is, you may need treatment. What causes bradycardia? Many things can cause bradycardia, including: Natural aging process Coronary artery disease Heart attack Heart muscle disease Problems with the SA node. This is the heart s natural pacemaker that starts each hear tbeat. Problems with the electrical pathways in the heart Problems with the structure of the heart that you are born with Infection Use of certain medicines Electrolyte imbalance Underactive thyroid Sleep apnea Increased pressure in the brain or stroke Well-conditioned athletes often have a naturally slow heart rate. What are the symptoms of bradycardia? Bradycardia can cause a slow or irregular heartbeat. It can also make it harder for the hea rt to pump blood to the body. This may cause symptoms such as: Tiredness Weakness Loss of ability to exercise Shortness of breath Dizziness or fainting Chest pain Heart failure Some people with bradycardia have no symptoms at all. How is bradycardia treated? Treatment for bradycardia depends on the cause. It also depends on the type you have and ho w severe your symptoms are. If you need treatment, your options may include: Treatment of the underlying cause. For instance, if a medicine is causing bradycardia, s topping the medicine, under your doctor s guidance, may correct the problem. Or if a condi tion such as an underactive thyroid is the cause, treating the thyroid may keep bradycardia from coming back. Medicines. Medicines may be used to treat conditions that cause bradycardia. Some medi cines can also be used in the short-term to increase the heart rate. These are often not chad g-term solutions. Temporary pacing. Pacing is used to help regulate your heartbeat.When the heart beats to o slowly, the device sends signals to keep the heart beating at the right pace. A temporary pacemaker may be connected to the heart using wires guided through a blood vessel in your ne ck or leg to the heart. This is also sometimes done using special pads placed on the chest. This may be used in an emergency, as a bridge to permanent pacing, when pacing is only neede d short-term, or to further evaluate your condition. Pacemaker.This is a device that is placed permanently under the skin in your chest and connected to your heart. When the heart beats too slowly, the device sends signals to keep the heart beating at the right pace. What are the complications of bradycardia? These can include: Development of other types of arrhythmias Heart failure. This problem occurs when the heart weakens so much that it no longer pump s blood well. Sudden cardiac arrest. This is when the heart suddenly stops beating. When should I call my healthcare provider? Call your healthcare provider right away if you have any of these: Symptoms that don t get better with treatment, or get worse New symptoms Date Last Reviewed: 10/09/201519992436-0358 [employer]. [address] [place], [place] [id number]. All righ ts reserved. This information is not intended as a substitute for professional medical care. Always follow your healthcare professional's instructions. 1. Need wound check on Saturday. Cardiology office will give a call on Saturday for follow up a ppointment. documented in this encounter Medications at Time [...] tablet by | 30 | 5 | // | | | (CATAPRES) 0.1 mg | [...] 1 tablet by | | 0 | 03/02/20 | | | tablet | mouth Daily. [...] documented as of this encounter H&P Notes Archana Morales MD - 10/02/2019 2:26 PM PDTFormatting of this note might be different from t rani original. [place] HOSPITALIST HISTORY & PHYSICAL Patient: Wilmer Pinon : 1935: Age: 83 y.o. MedRec: [id number] Admission date: 10/02/2019 Hospital day # : 0 Physician author: Archana Morales MD Today: 10/02/2019 ASSESSMENT Active Problem, present on admission: Active Hospital Problems Diagnosis Bradycardia Resolved Hospital Problems No resolved problems to display. PLAN Sinoatrial node dysfunction, symptomatic bradycardia Chronic RBBB TIA history TSH 1.84, troponin negative, mag 1.[address] 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 male with a history of CAD/TURP/hypothyroid , presented on , to [facility] ED, At 10:30 AM indicated arm flailing, but EMS noted shakin g (tremor), with heart rate in the 20-30s, in the ED he was administered Versed atropine wit h pacer pads, 1 L NS. Direct admission - Dr. Escobar plans to place pacemaker. ED course - HR 30/SBP 90-->atropine--> HR 50/SBP 100s Room air, RR 13 16, HR 35 50, SBP 102 115/51 54 EKG RBBB, HR 35, no P waves WBC 5.9, Hgb 11.2, NA 137, CR 1.9 CT head was performed at [facility] due to indicating grand mal seizure despite no seizure history After arrival to [facility] ICU, pacer was immediately placed, w/ subsequent HR 60s paced, f atigued. Patient indicates he had been in his usual state of health until this morning with persistent retching, then he cannot remember the rest. No SOB/cough/fever/change in urinati on/no diarrhea/no sore throat/no current abdominal pain/no current nausea. He took all his am medications. He tolerated dinner just now and is looking forward to going home tomorrow. REVIEW OF SYSTEMS: None of the following - headache/ /palpitations/chest pain/GERD/ /leg swelling/rash/yeast infections/ change in mood/diabetes PHYSICAL EXAMINATION: On room air Constitutional NAD / sitting upright fatigued, easily awakeend Eye PERRL / EOMI / No scleral icterus, no injected eyes ENT hearing intact / no sinus congestion / NO THRUSH Neck supple Lymph node No overt lymphadenopathy Cardiac S1 S2 present / RRR / no MRG Lung Auscultation CTAB / no RRW / Respiratory effort not labored/using accessory muscles sp eaking in full sentences without difficulty Abdomen active BS, Soft, NT / ND, no overt hernias Psych Mood and affect normal, alert and oriented x3 Extremities No burns edema bilateral Skin No overt rash / no jaundice / NO INTERTRIGO left upper chest wall incision c/d/i, ice pack Fleming clear UOP yellow VITAL SIGNS: Temp: 35.9 C (96.6 F), Pulse: (!) 44, Resp: 12, BP: 144/78, SpO2 99 % on nasal cannula at flow rate 2L/min Temp Min: 35.7 C (96.3 F) Max: 35.9 C (96.6 F) Weight: 97.3 kg (214 lb 8.1 oz) PAST MEDICAL and SURGICAL HISTORY: Past Medical History: Diagnosis Date Abnormal angiogram / Bypass graft mechanical complication (HCC) 04/1991 revision of CABG in 10/1990 CAD, multiple vessel CHF (congestive heart failure) (HCC) Chronic kidney disease (CKD) CVA (cerebral infarction) May 2012 lacunar left basal ganglia Diabetes (HCC) Gall bladder disease removed H/O knee surgery 2011 H/O three vessel coronary artery bypass 10/1990 H/O TIA (transient ischemic attack) and stroke 06/2017 History of back surgery 1955 History of back surgery 1967 Hx of colonoscopy 2006 Hypercholesterolemia Hypertension Ischemic cardiomyopathy EF 55% to 60% Mitral regurgitation +2 Nonalcoholic steatohepatitis Polycythemia vera (HCC) Past Surgical History: Procedure Laterality Date ANGIOGRAM 1990 BACK SURGERY CARDIAC CATHERIZATION 2011 CATARACT REMOVAL WITH IMPLANT Bilateral 2010 CHOLECYSTECTOMY CHOLECYSTECTOMY, LAPAROSCOPIC COLONOSCOPY August 2006 CORONARY ANGIOPLASTY WITH STENT PLACEMENT 2011 CORONARY ARTERY BYPASS GRAFT 1990 3 vessel CORONARY ARTERY BYPASS GRAFT 1990 KNEE ARTHROSCOPY Right LUMBAR DISC SURGERY 1954, [address] May [address] Oconnell TURP N/A 07/30/2014 Procedure: Cyber Laser Vaporization of the Prostate; Surgeon: Sony Oconnell MD; Locatio n: [facility] MAIN OR Patient Active Problem List Diagnosis Syncope symptomatic bradycardia 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 HTN (hypertension) Retention of urine Hypertrophy of prostate with urinary obstruction CHF (congestive heart failure) CAD, multiple vessel Nonalcoholic steatohepatitis Ischemic cardiomyopathy - ECHO Jun 2014 EF 55-60% CVA (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 Omeprazole 40 Torsemide 5 Crestor 20 Lisinopril 20 clonidine 0.1 ropinirole 0.5 amlodipine 5 ALLERGIES: SOCIAL HISTORY: FAMILY HISTORY: Allergies Allergen Reactions Atorvastatin Other (See Comments) Other Hydrocodone Other (See Comments) "I go into spasms" Oxycodone Other (See Comments) "I go into spasms" Tramadol Other (See Comments) "I go into spasms" Tramadol Caused spasms and pt to be in hospital reports that he has never smoked. He has never used smokeless tobacco. He reports that he does not drink alcohol or use drugs. family history is not on file. DIAGNOSTIC STUDIES: Lab results last 24 hours Recent Results (from the past 24 hour(s)) ECG 12 lead Collection Time: 10/02/19 2:39 PM Result Value Ref Range INTERPRETATION TEXT Not Confirmed ECG 12 lead Collection Time: 10/02/19 4:52 PM Result Value Ref Range INTERPRETATION TEXT Not Confirmed ECG 12 lead Collection Time: 10/02/19 4:53 PM Result Value Ref Range INTERPRETATION TEXT Not Confirmed Troponin I Collection Time: 10/02/19 5:04 PM Result Value Ref Range Troponin I 0.01 <0.06 ng/mL Basic Metabolic Panel Collection Time: 10/02/19 5:04 PM Result Value Ref Range Na 139 136 - 145 mmol/L K 4.2 3.4 - 5.1 mmol/L Cl 108 (H) 98 - 107 mmol/L CO2 24 20 - 31 mmol/L Anion Gap 7 3 - 16 mmol/L Glucose 122 (H) 60 - 106 mg/dL BUN 25 (H) 9 - 23 mg/dL Creatinine 1.73 (H) 0.70 - 1.30 mg/dL eGFR if not 38 (L) >=60 mL/min/1.73m2 Calcium 9.0 8.7 - 10.4 mg/dL BUN/Creatinine Ratio 14.5 Magnesium Collection Time: 10/02/19 5:04 PM Result Value Ref Range Magnesium 1.8 1.6 - 2.6 mg/dL Protime INR Collection Time: 10/02/19 5:04 PM Result Value Ref Range Prothrombin Time 15.0 (H) 11.3 - 13.9 seconds INR 1.1 0.9 - 1.1 Micro results Microbiology Results (72 hrs) Procedure Component Value Units Date/Time Culture, MRSA [[id number]] Collected: 10/02/19 1700 Order Status: Sent Lab Status: In process Updated: 10/02/191721 Specimen: Tissue from Nares Radiology results Xr Chest Pa And Lateral Result Date: [...] and Sign ed by: Heron Mathis MD Electronically signed: 10/02/2019 4:22 PM Electronically signed by: Archana Morales MD 10/02/2019 6:36 PM [facility] initial inpatient hospital time exceeds 70 minutes with 1/2 spent on face to face time for assessment and plan and coordinating care -Medical Decision Maker Patient. Assessment and Plan were discussed with patient -[facility] Documentation I expect this patient will be hospitalized for 2 or more days and expect the post-hospital plan to be home. -I reviewed relevant imaging, EKG and old records. documented in this encou nter Consult Notes Hans Blanco MD - 10/02/2019 1:55 PM PDTFormatting of this note might be different f rom the original. PATIENT NAME: Wilmer Pinon : 1935: AGE: 83 y.o. ADMISSION DATE: 10/02/2019 HOSPITAL DAY NUMBER: 0 PRIMARY CARE: Ana Maria Yuan MD REFERRING PROVIDER: Archana Morales MD CONSULTING PROVIDER: Hans Blanco MD CARDIOLOGY CONSULTATION DATE OF CONSULTATION: 10/02/19 REASON FOR CONSULT: Symptomatic irreversible bradycardia HISTORY OF PRESENT ILLNESS: Wilmer Pinon is a 83 y.o. male with a history of asymptomatic irreversible bradycardi a, coronary artery disease, post CABG 1990,stage III chronic kidney disease, essential hyp ertension and mixed hyperlipidemia. He was admitted to [facility] on 10/02/2019 for bradycardia. He was last seen in office on 08/28/2019. At that time, patient complained of chest pain whe n walking up stairs. His heart rate was 50 bpm on ECG but denied any dizziness or lightheade dness. Plan was to continue with current medical regimen and follow up in six months. Today, patient was sitting in chair and completely passed out. His pulse was 35 bpm when he [facility] to [facility]. There is no chest pain or chest discomfort both at rest a nd on exertion. Patient denies breathlessness. There is no palpitation dizziness or lighth eadedness. There is no ankle or leg swelling. Patient can sleep on one pillow at night wit hout difficulty breathing. PAST MEDICAL HISTORY Past Medical History: Diagnosis Date Abnormal angiogram / Bypass graft mechanical complication (HCC) 04/1991 revision of CABG in 10/1990 CAD, multiple vessel CHF (congestive heart failure) (HCC) Chronic kidney disease (CKD) CVA (cerebral infarction) May 2012 lacunar left basal ganglia Diabetes (HCC) Gall bladder disease removed H/O knee surgery 2011 H/O three vessel coronary artery bypass 10/1990 H/O TIA (transient ischemic attack) and stroke 06/2017 History of back surgery 1955 History of back surgery 1967 Hx of colonoscopy 2006 Hypercholesterolemia Hypertension Ischemic cardiomyopathy EF 55% to 60% Mitral regurgitation +2 Nonalcoholic steatohepatitis Polycythemia vera (HCC) CURRENT PROBLEMS Active Problems: * No active hospital problems. * PAST SURGICAL HISTORY (INCLUDING PROCEDURES) Past Surgical History: Procedure Laterality Date ANGIOGRAM 1990 BACK SURGERY CARDIAC CATHERIZATION 2011 CATARACT REMOVAL WITH IMPLANT Bilateral 2009 CHOLECYSTECTOMY CHOLECYSTECTOMY, LAPAROSCOPIC COLONOSCOPY August 2006 CORONARY ANGIOPLASTY WITH STENT PLACEMENT 2011 CORONARY ARTERY BYPASS GRAFT 1990 3 vessel CORONARY ARTERY BYPASS GRAFT 1990 KNEE ARTHROSCOPY Right LUMBAR DISC SURGERY 1954, 1967 T[address] May [address] Kourtney JOAQUINP N/A 07/30/2014 Procedure: Cyber Laser Vaporization of the Prostate; Surgeon: Sony Oconnell MD; Locatio n: [facility] FAMILY HISTORY No family history on file. SOCIAL HISTORY Social History Socioeconomic History Marital status: Spouse name: Not on file Number of children: Not on file Years of education: Not on file Highest education level: Not on file Occupational History Not on file Social Needs Financial resource strain: Not on file Food insecurity: Worry: Not on file Inability: Not on file Transportation needs: Medical: Not on file Non-medical: Not on file Tobacco Use Smoking status: Never Smoker Smokeless tobacco: Never Used Substance and Sexual Activity Alcohol use: No Drug use: No Sexual activity: Not on file Lifestyle Physical activity: Days per week: Not on file Minutes per session: Not on file Stress: Not on file Relationships Social connections: Talks on phone: Not on file Gets together: Not on file Attends episcopalian service: Not on file Active member of club or organization: Not on file Attends meetings of clubs or organizations: Not on file Relationship status: Not on file Intimate partner violence: Fear of current or ex partner: Not on file Emotionally abused: Not on file Physically abused: Not on file Forced sexual activity: Not on file Other Topics Concern Not on file Social History Narrative Merged History Encounter OUTPATIENT MEDICATIONS Medications Prior to Admission Medication Sig Dispense Refill acetaminophen (TYLENOL) 650 [...] of 160 or above 30 tablet 5 gabapentin (NEURONTIN) 300 mg capsule Take 300 [...] by mouth every morning (before breakfast ). potassium 99 mg tablet Take 1 tablet by mouth Daily. rosuvastatin (CRESTOR) 20 mg tablet Take 1 tablet by mouth nightly. 30 tablet 5 torsemide (DEMADEX) 10 mg tablet Take 1 tablet by mouth Daily. 30 tablet 5 CURRENT SCHEDULED MEDS: IV INFUSIONS: ALLERGIES Allergies Allergen Reactions Atorvastatin Other (See Comments) Other Hydrocodone Other (See Comments) "I go into spasms" Oxycodone Other (See Comments) "I go into spasms" Tramadol Other (See Comments) "I go into spasms" Tramadol Caused spasms and pt to be in hospital REVIEW OF SYSTEMS Constitutional: Denies fever, chills, fatigue, weight loss, sudden weight gain. Eyes: Denies double vision, sudden vision loss. Ears/Nose/Throat: Denies tinnitus, decreased hearing, nosebleeds. Cardiovascular: Syncope. Denies chest pains, palpitations, syncope, presyncope, dizziness, orthopnea, PND, peripheral edema. Respiratory: Denies cough, dyspnea with exertion, dyspnea at rest, wheezing, sleep apnea, s noring. Gastrointestinal: Denies nausea, vomiting, diarrhea, abdominal pain. Genitourinary: Denies dysuria, increased urinary frequency, nocturia. Musculoskeletal: Denies back pain, arthritis, muscle weakness, myalgias. Skin: Denies rash, itching, suspicious lesions. Neurologic: Denies transient paralysis, paresthesias, seizures, tremors, memory impairment, depression, sciatica, balance problems, headache, anxiety. Heme/Lymphatic: Denies abnormal bruising, bleeding, enlarged lymph nodes. Endocrine: Denies cold intolerance, heat intolerance, polydipsia, polyuria. PHYSICAL EXAM Latest VS: BP 135/68 | Pulse (!) 37 | Temp 35.7 C (96.3 F) (Temporal) | Resp 12 | Ht 1.854 m (6' 1") | Wt 97.3 kg (214 lb 8.1 oz) | SpO2 97% | BMI 28.30 kg/m Vital sign ranges for last 24hrs: Input and output for last 24hrs: Temp: [35.7 C (96.3 F)] 35.7 C (96.3 F) Pulse: [37-48] 37 Resp: [12] 12 BP: (135-139)/(68-72) 135/68 SpO2 Av % Min: 97 % Max: 97 % No intake/output data recorded. Body mass index is 28.3 kg/m.; Body surface area is 2.24 meters squared. Constitutional General appearance: Male individual, well developed, well nourished, well groomed, no a cute distress Cardiovascular NYHA Class: I- No symptoms; no limitations of activities Palp/Percussion: PMI in 5th ICS at MCL; no lifts, thrills, palp S3 or S4. Auscultation: normal S1 S2; no gallop or rub or click Murmur: none Carotid arteries: pulses 2+, symmetric, no bruits Abdominal aorta: no enlargement or bruits Femoral arteries: pulses 2+, symmetric Pedal pulses: pulses 2+, symmetric Peripheral circulation: no cyanosis, clubbing, edema, or varicosities Gastrointestinal Abdomen: soft, non-tender, no masses Liver and spleen: no enlargement Mental Status/Neurological Orientation: oriented to time, place, and person Affect/Mood: no depression, anxiety, or agitation Respiratory Respiratory effort: no intercostal retractions or use of accessory muscles Auscultation: no rales, rhonchi, or wheezes Eyes Conjunctiva & lids: conjunctiva and lids normal Ears, Nose and Throat Lips: no pallor or cyanosis Neck Jugular veins: no significant JVD; no a, v or garcia waves Musculoskeletal Gait and station: normal without ataxia Extremities Digits and nails: no clubbing, cyanosis, or petechiae Skin Inspection: no visible rashes, lesions, or ulcerations LABS No results found for this or any previous visit (from the past 24 hour(s)). IMAGING No results found. ECG: Pending. ASSESSMENT: 1. Symptomatic irreversible bradycardia A. Echocardiogram 03/09/2018 shows mild left atrial dilatation, norm al left ventricular size, wall thickness and motion, preserved left ventricular systolic fun ction, LVEF is 60-65%, grade 2 left ventricular diastolic dysfunction, mildly thickened and calcified mitral valve with a mild central mitral valve regurgitation, mildly thickening zuri cified trileaflet aortic valve with adequate opening, there is aortic valve sclerosis withou t significant aortic valve stenosis, mild aortic root dilatation measuring 3.9 cm in diamete r, normal right-sided pressure, not well-visualized IVC B. Hewas in his usual state of health until 03/08/2018 he was at a memorial for a friend and while sitting down he passed out. He was then admitted [facility] with profound bradycardia and his carvedilol was put on hold.In the past 36 hours, delfino boyer continues to have bradycardia with evidence of nonconducted P waves, nocturnal heart ra te in the mid 40's. C. 48 hour Holter monitor 03/17/18 shows the predominant rhythm is s inus with HR between 58to 98bpm, the average HR was 72bpm during the 48:03hour recor ding, there were occasionalPVC's (519total, mean 10.8/hr) with 11 couplets and no triple ts, there were very rare PAC's (155total, mean 3.2/hr), there were 54 episodes of bradycar maría, the longest was 27 beats on Saturday 10:19, the minimum rate was 51 bpm on Saturday 00:56, there was no tachycardia, there was 1 pause of 2.o seconds on Saturday 00:05, diary was return ed, no symptoms were reported. D. He was last seen in office on 08/28/2019. At that time, patient complained of chest pain when walking up stairs. He denied any dizziness or lightheadedness. His heart ra te was 50 bpm on ECG. Today, patient was sitting in chair and completely passed out. His pulse was 35 bpm when h e arrives to [facility]. There is no signs and symptoms of overt congestive heart failure. He is in a class I of [place] [employer] functional class. There is no f luid retention on physical examination. 2. Coronary artery disease A. Post CABG x3 BAILEY to LAD, arterial graft to OM and SVG to the PD A on 1990. B. Left heart catheterization 03/27/2012 shows left main is very sh ort, almost separate ostia for the LAD and left circumflex artery, LAD is 100% occluded at t he ostium and the proximal, mid and distal LAD are filled with a patent BAILEY to the LAD. All 3 diagonals are absent, left circumflex artery is diffusely diseased in the proximal and mi d part, more than 90% lesions, first and second obtuse marginal are tiny with diffuse disea se, but the third obtuse marginal is patent with a free IM arterial graft to the third obtus e marginal, RCA proximally 80% to 90% lesion, mid is 100% occluded, then the right PDA is fi lled with re-opened SVG to the right PDA. The right AV groove artery is normal size with no significant stenosis. It gives 3 small right posterolateral arteries, all small size with no significant stenosis, right dominant circulation. C. Nuclear stress test 08/25/2019 shows persantine EKG is negative, abnormal per santine sestamibi myocardial perfusion imaging study with a medium size, fixed defect of a m oderate severity in the inferobasal region, there is also a small sized, reversible defect o f a mild severity in the distal anterior wall, findings suggest a medium size myocardial sca r of a mid right coronary territory and a small size moderate ischemia of a distal left ante rior descending artery territory, normal left ventricular size and wall thickness, here is a mild hypokinesis of the distal inferior wall. Overall, left ventricular systolic function is low normal, LVEF by gated SPECT is 50%. D. Today, patient is asymptomatic. 3. Heart failure with preserved ejection fraction A. Echocardiogram 08/25/2019 shows mild to moderate biatrial dilatation, normal left ventricular size with a mild concentric left ventricular hypertrophy, left ventricular size systolic function is preserved, LVEF is 55%, grade 1 left ventricular diastolic dysfunc tion, mildly thickened trileaflet aortic valve with adequate opening, mildly thickened tegan l valve suggesting myxomatous change with a mild central mitral valve regurgitation, mild tr icuspid valve regurgitation, normal right-sided pressure, normal IVC with a normal respirato ry collapse, when compared to echocardiogram on 03/09/2018, no significant changes. B. There is no signs and symptoms of overt congestive heart failure. He is in a class I of [place] [employer] functional class. There is bilateral trace leg swel ling on physical examination. 4. Hypertension A. Today, his blood pressure is within target. 5. Stage IV chronic kidney disease A. Pending. 6. Inactivity. Not addressed today. A. Patient has not been physically active due to chest pain. 7. Hyperlipidemia. Not addressed today. A. Today, he is taking rosuvastatin 20 mg. 8. Medical non compliance. A. had mentioned she fills his pill box, but he doesn't always take his me dications. PLAN: 1. I spend time at length talking about natural course, treatment and prognosis of symptom atic irreversible bradycardia. He is not a candidate for dual-chamber permanent pacemaker i mplantation emergently. 2. Patient is candidate for dual chamber pacemaker implantation. The risks and benefits of the procedure including alternative treatment were discussed with the patient in length. The patient decides to proceed with the procedure. I, Sissy Mcmullen, am acting as a scribe on behalf of, and in the presence of Hans feliciano MD. I have reviewed and edited this note. Sissy Mcmullen Boxing Inspector 10/02/2019 I, Hans Blanco MD, personally performed the services described in this documentation, as scribed in my presence and it is both accurate and complete. Sissy Mcmullen Boxing Inspector 2:35 PM Thank you for including me in the care of this patient. Electronically signed by: Hans Blanco MD [facility] 10/02/2019 documented in this encounter Miscellaneous Notes Plan of Sunitha Ariza RN - 10/03/2019 2:00 PM PDTAVS reviewed with Jorge. Pacemaker discharge instructions reviewed and given to patient. Verbalizes understanding. Sent home wi th a sling in place to left upper arm. Verbalizes understanding and readiness to go home. CN A escorted Jorge to car via wheel chair. 20 6:15 PM PDTPlan of Lupe Laurent RN - 10/03/2019 12:16 PM PDT Visited with Mr. Pinon at the bedside to discuss his discharge plans. Mr. Pinon reports he lives with his in a split level home with about eight steps to en ter, he states he does okay managing the steps. They have a walk-in shower with grab bars an d a shower stool. He states he is normally independent with his ADL's, he uses a 4WW or a single point cane f or ambulation, he does not use oxygen or CPAP. He confirms his PCP is Dr. Yuan and he uses the [facility] and mail order pharmac y. Mr. Pinon denies any discharge needs and declines HH services at this time. His will t ransport him home when he is medically stable for discharge. Plan: Home with , no anticipated needs. Electronically signed by: Lupe Concepcion RN 10/03/2019 12:50 PM lan of Pat Ariza RN - 10/03/2019 10:50 AM PDTJim ambulates to the door with a cane. States it is the same distance he walks at home. Denies any pain, shortness of breath or dizziness with ambul ation. Left arm remains in the sling and reminded of precautions. Verbalizes understanding. lan of Paolo Meeks RN - 10/03/2019 5:19 AM PDT"Jorge" is alert and oriented x4, denies pain/chest discom fort this shift, became nauseated with 25 mL emesis at 2300 with HR in 100s and SBP 160, PRN Zofran given, HR now in 60s, SBP <150, VSS, lung sounds clear, LUE CMS intact, fleming in bethany ce with 2450 mL urine output, remains free from falls, frequent rounding, will continue to m onitor. lan of Lilia Cheung RN - 10/02/2019 7:39 PM PDTBack from pacemaker insertion around 1615. Left subclavian site with minimal bruising. Ice pack to site. Left arm placed in sling. Pt follo ws pacemaker precautions well. Sleepy but arouses easily. Denies pain. CMS intact left hand. Monitor 100% AV pacing eICU Note - Lilia Hyatt RN - 10/02/2019 3:19 PM PDTAdmitted to room [facility]. HR mos tly in 40's, briefly in high 30's. Pt asymptomatic. External pacer pads in place, on standb y. To general labor forklift operator at 1445 d ocumented in this encounter Plan of Treatment +--------+---------+ + + + | Date | Type | Specialty | Care Team | Description | +--------+---------+ + + + | 01/20/ | Office | Cardiology | Hans Blanco, | | | 2019 | Visit | | MD [facility] | | | | | | [place], | | | | | | [place] [address] | | | | | | [phone] | | | | | | | | +--------+---------+ + + + | 02/25/ | Office | Cardiology | Hans Blanco, | | 2019 | Visit | | MD [facility] | | | | | | [place], | | | | | | [place] [address] | | | | | | [phone] | | | | | | | | +--------+---------+ + + + documented as of this encounter Procedures + +--------+ + + + | Procedure Name | Priori | Date/Time | Associated Diagnosis | Comments | | | ty | | | | + +--------+ + + + | CBC NO DIFFERENTIAL | Routin | 10/03/2019 | | Results for this | | | e | 3:52 AM | | procedure are in the | | | | PDT | | results section. | + +--------+ + + + | MAGNESIUM | Routin | 10/03/2019 | | Results for this | | | e | 3:52 AM | | procedure are in the | | | | PDT | | results section. | + +--------+ + + + | BASIC METABOLIC | Routin | 10/03/2019 | | Results for this | | PANEL | e | 3:52 AM | | procedure are in the | | | | PDT | | results section. | + +--------+ + + + | TROPONIN I | Routin | 10/02/2019 | | Results for this | | | e | 8:35 PM | | procedure are in the | | | | PDT | | results section. | + +--------+ + + + | TROPONIN I | Routin | 10/02/2019 | | Results for this | | | e | 5:04 PM | | procedure are in the | | | | PDT | | results section. | + +--------+ + + + | PROTIME INR | Routin | 10/02/2019 | | Results for this | | | e | 5:04 PM | | procedure are in the | | | | PDT | | results section. | + +--------+ + + + | MAGNESIUM | Routin | 10/02/2019 | | Results for this | | | e | 5:04 PM | | procedure are in the | | | | PDT | | results section. | + +--------+ + + + | BASIC METABOLIC | Routin | 10/02/2019 | | Results for this | | PANEL | e | 5:04 PM | | procedure are in the | | | | PDT | | results section. | + +--------+ + + + | CULTURE, MRSA | Routin | 10/02/2019 | | Results for this | | | e | 5:00 PM | | procedure are in the | | | | PDT | | results section. | + +--------+ + + + | ECG 12 LEAD | Routin | 10/02/2019 | | Results for this | | | e | 4:53 PM | | procedure are in the | | | | PDT | | results section. | + +--------+ + + + | ECG 12 LEAD | Routin | 10/02/2019 | | Results for this | | | e | 4:52 PM | | procedure are in the | | | | PDT | | results section. | + +--------+ + + + | XR CHEST PA AND | Routin | 10/02/2019 | | Results for this | | LATERAL | e | 4:13 PM | | procedure are in the | | | | PDT | | results section. | + +--------+ + + + | CV EP PROCEDURE | Routin | 10/02/2019 | | Results for this | | | e | 4:05 PM | | procedure are in the | | | | PDT | | results section. | + +--------+ + + + | ECG 12 LEAD | Routin | 10/02/2019 | | Results for this | | | e | 2:39 PM | | procedure are in the | | | | PDT | | results section. | + +--------+ + + + | EP PROCEDURE - | | 10/02/2019 | | Results for this | | EXTERNAL SCAN | | 12:00 AM | | procedure are in the | | | | PDT | | results section. | + +--------+ + + + | ECG - EXTERNAL SCAN | | 10/02/2019 | | Results for this | | | | 12:00 AM | | procedure are in the | | | | PDT | | results section. | + +--------+ + + + documented in this encounter Results CBC no Differential (10/03/2019 3:52 AM PDT) + + + + + + | Component | Value | Ref Range | Performed | Pathologist | | | | | At | Signature | + + + + + + | White Blood | 10.2 | 4.0 - 11.0 K/uL | [facility] | | | Cells | | | [facility] | | | | | | [facility] | | | | | | [facility] - | | | | | | LABORATORY | | + + + + + + | Red Blood | 3.75 (L) | 4.30 - 5.70 | [facility] | | | Cells | | M/uL | [facility] | | | | | | [facility] | | | | | | [facility] - | | | | | | LABORATORY | | + + + + + + | Hemoglobin | 12.1 (L) | 13.5 - 18.0 | [facility] | | | | | g/dL | [facility] | | | | | | [facility] | | | | | | [facility] - | | | | | | LABORATORY | | + + + + + + | Hematocrit | 35.4 (L) | 40.0 - 51.0 % | [facility] | | | | | | [facility] | | | | | | [facility] | | | | | | [facility] - | | | | | | LABORATORY | | + + + + + + | MCV | 94.4 | 83.0 - 101.0 fL | [facility] [...] + + + + | MCHC | 34.2 | 32.0 - 36.0 | [facility] | | | | | g/dL | [facility] | | | | | | [facility] | | | | | | [facility] - | | | | | | LABORATORY | | + + + + + + | RDW-CV | 14.0 | <15.0 % | [facility] | | | | | | [facility] | | | | | | [facility] | | | | | | [facility] - | | | | | | LABORATORY | | + + + + + + | RDW-SD | 48.4 (H) | 35.1 - 46.3 fL | [facility] | | | | | | [facility] | | | | | | [facility] | | | | | | [facility] - | | | | | | LABORATORY | | + + + + + + | Platelet | 213 | 140 - 440 K/uL | [facility] | | | Count | | | [facility] | | | | | | [facility] | | | | | | C[facility] - | | | | | | LABORATORY | | + + + + + + | MPV | 10.5 | 6.5 - 12.4 fL | [facility] [...] | | | | WBCs | [facility] | | | | [...] + | [facility] | [address] | [place] | [phone] | | [facility] | | [address] | | | - LABORATORY | | | | + + + + + Magnesium (10/03/2019 3:52 AM PDT) + +-------+ + + + | Component | Value | Ref Range | Performed | Pathologist | | | | | At | Signature | + +-------+ + + + | Magnesium | 2.0 | 1.6 - 2.6 mg/dL | [facility] | | | | [...] + | [facility] | [address] | [place] | [phone] | | [facility] | | [address] | | | - LABORATORY | | | | + + + + + Basic Metabolic Panel (10/03/2019 3:52 AM PDT) + + + + + + | Component | Value | Ref Range | Performed | Pathologist | | | | | At | Signature | + + + + + + | Na | 140 | 136 - 145 | [facility] | | | | | mmol/L | [facility] | | | | | | MEDICAL | | | | | | CENTER - | | | | | | LABORATORY | | + + + + + + | K | 4.2 | 3.4 - 5.1 | [facility] | | | | | mmol/L | [facility] | | | | | | [facility] | | | | | | CENTER - | | | | | | LABORATORY | | + + + + + + | Cl | 107 | 98 - 107 mmol/L | [facility] [...] + + + + | Glucose | 128 (H) | 60 - 106 mg/dL | [facility] | | | | | | [facility] | | | | | | MEDICAL | | | | | | CENTER - | | | | | | LABORATORY | | + + + + + + | BUN | 22 | 9 - 23 mg/dL | [facility] | | | | | | [facility] | | | | | | [facility] | | | | | | CENTER - | | | | | | LABORATORY | | + + + + + + | Creatinine | 1.68 (H) | 0.70 - 1.30 | [facility] | | | | | mg/dL | [facility] | | | | | | MEDICAL | | | | | | CENTER - | | | | | | LABORATORY | | + + + + + + | eGFR if not | 39 (L)Comment: | >=60 | [facility] | | | | GLOMERULAR FILTRATION | mL/min/1.73m2 | [facility] | | | [facility]STANIAN | RATE,ESTIMATED | | MEDICAL | | | | mL/min/1.86y4Fzom than | | CENTER - | | [...] + + + + | BUN/Creatin | 13.1 | | [facility] | | | ine [...] [address] | [place] | [phone] | | [facility] | | [address] | | | - LABORATORY | | | | + + + + + Troponin I (10/02/2019 8:35 PM PDT) + + + + + + | Component | Value | Ref Range | Performed | Pathologist | | | | | At | Signature | + + + + + + | Troponin I | 0.02Comment: | <0.06 ng/mL | [facility] | | | | Comment:Reference | | [facility] | | | | Ranges: 0.00-0.06 = | | MEDICAL | | | | NORMAL >0.06 = | | CENTER - | | | | SUSPICIOUS FOR | | LABORATORY | | | | MYOCARDIAL DAMAGE NOTE: | | | | | | Values greater than | | | | | | 0.78 ng/mL have been | | | | | | shown to be strongly | | | | | | associated with acute | | | | | | myocardial infarction. | | | | | | [employer] | | | | | [...] + + | Performing | Address | City/State[facility] | Phone Number | | Organization | | | | + + + + + | [facility] | [address] | [place] | [phone] | | [facility] | | [address] | | | - LABORATORY | | | | + + + + + Protime INR (10/02/2019 5:04 PM PDT) + + + + + + | Component | Value | Ref Range | Performed | Pathologist | | | | | At | Signature | + + + + + + | Prothrombin | 15.0 (H) | 11.3 - 13.9 | [facility] | | | Time | | seconds | [facility] | | | | | | MEDICAL | | | | | | CENTER - | | | | | | LABORATORY | | + + + + + + | INR | 1.1Comment: Usual Oral | 0.9 - 1.1 | [facility] | | | | Anticoagulation Range: | | [facility] | | | | 2.0 - 3.0High | | MEDICAL | | | | Level Oral | | CENTER - | | | | Anticoagulation Range: | | LABORATORY | | | | 2.5 - 3.5 | | | | + + + + + + + + | Specimen | + + | Blood | + + + + + + + | Performing | Address | City/State[facility] | Phone Number | | Organization | | | | + + + + + | [facility] | [address] | [place] | [phone] | | [facility] | | [address] | | | - LABORATORY | | | | + + + + + Magnesium (10/02/2019 5:04 PM PDT) + +-------+ + + + | Component | Value | Ref Range | Performed | Pathologist | | | | | At | Signature | + +-------+ + + + | Magnesium | 1.8 | 1.6 - 2.6 mg/dL | [facility] | | | | [...] + | [facility] | [address] | [place] | [phone] | | [facility] | | [address] | | | - LABORATORY | | | | + + + + + Basic Metabolic Panel (10/02/2019 5:04 PM PDT) + + + + + + | Component | Value | Ref Range | Performed | Pathologist | | | | | At | Signature | + + + + + + | Na | 139 | 136 - 145 | [facility] | | | | | mmol/L | [facility] | | | | | | MEDICAL | | | | | | CENTER - | | | | | | LABORATORY | | + + + + + + | K | 4.2 | 3.4 - 5.1 | [facility] | | | | | mmol/L | [facility] | | | | | | MEDICAL | | | | | | CENTER - | | | | | | LABORATORY | | + + + + + + | Cl | 108 (H) | 98 - 107 mmol/L | [facility] | | | | | | [facility] | | | | | | MEDICAL | | | | | | CENTER - | | | | | | LABORATORY | | + + + + + + | CO2 | 24 | 20 - 31 mmol/L | [facility] [...] + + + + | Glucose | 122 (H) | 60 - 106 mg/dL | [facility] | | | | | | [facility] | | | | | | MEDICAL | | | | | | CENTER - | | | | | | LABORATORY | | + + + + + + | BUN | 25 (H) | 9 - 23 mg/dL | [facility] | | | | | | [facility] | | [facility] | [facility] | | | | | | [facility] - | | | | | | LABORATORY | | + + + + + + | Creatinine | 1.73 (H) | 0.70 - 1.30 | [facility] | | | | | mg/dL | [facility] | | | | | | [facility] | | | | | | C[facility] - | | | | | | LABORATORY | | + + + + + + | eGFR if not | 38 (L)Comment: | >=60 | [facility] | | | | GLOMERULAR FILTRATION | mL/min/1.73m2 | [facility] | | | [facility] | RATE,ESTIMATED | | MEDICAL | | | | mL/min/1.34m8Mivc than | | CENTER - | | [...] + + + + | Calcium | 9.0 | 8.7 - 10.4 | [facility] | | | | | mg/dL | [facility] | | | | | | MEDICAL | | | | | | CENTER - | | | | | | LABORATORY | | + + + + + + | BUN/Creatin | 14.5 | | [facility] | | | ine Ratio | | | [facility] | | | | | [...] [address] | [place] | [phone] | | [facility] | | [id number] | | | - LABORATORY | | | | + + + + + Troponin I (10/02/2019 5:04 PM PDT) + + + + + + | Component | Value | Ref Range | Performed | Pathologist | | | | | At | Signature | + + + + + + | Troponin I | 0.01Comment: | <0.06 ng/mL | [facility] | | | | Comment:Reference | | [facility] | | | | Ranges: 0.00-0.06 = | | MEDICAL | | | | NORMAL >0.06 = | | CENTER - | | | | SUSPICIOUS FOR | | LABORATORY | | | | MYOCARDIAL DAMAGE NOTE: | | | | | | Values greater than | | | | | | 0.78 ng/mL have been | | | | | | shown to be strongly | | | | | | associated with acute | | | | | | myocardial infarction. | | | | | | [employer] | | | | | [...] ST. | [address] | [place], [place] | [phone] | | [facility] | | [address] | | | - LABORATORY | | | | + + + + + Culture, MRSA (10/02/2019 5:00 PM PDT) + + + + + + | Component | Value | Ref Range | Performed | Pathologist | | | | | At | Signature | + + + + + + | Culture | Negative for MRSA by | | [facility] | | | | chromogenic agar method. | | [facility] | | | [...] [address] | [place] [place] | [phone] | | [facility] | | [id number] | | | - LABORATORY | | | | + + + + + ECG 12 lead (10/02/2019 4:53 PM PDT) + + + + + [...] + + + + | P-R | 126 | ms | [facility] | | | INTERVAL | | | | | + + + + + + | QRS | 204 | ms | [facility] | | | DURATION | | | | | + + + + + + | Q-T | 490 | ms | [facility] | | | INTERVAL | | | | | + + + + + + | Q-T | 632 | ms | [facility] | | | INTERVAL | | | | | | (CORRECTED) | | | | | + + + + + + | P WAVE AXIS | 76 | degrees | [facility] | | + + + + + + | QRS AXIS | 85 | degrees | [facility] | | + + + + + + | T AXIS | -84 | degrees | [facility] | | + + + + + + | INTERPRETAT | AV dual-paced | | [facility] | | | ION TEXT | rhythmAbnormal ECGWhen | | | | | | compared with ECG of | | | | | | 02-OCT-2019 16:52, | | | | | | (Unconfirmed)Vent. rate | | | | | | has increased BY 39 | | | | | | BPMConfirmed by CLIVE | | | | | | LAVELLE SIMMONS ([id number]) on | | | | | | 10/03/2019 7:17:07 AM | | | | + + [...] + +---------+ + + ECG 12 lead (10/02/2019 4:52 PM PDT) + + + + + + | Component | Value | Ref Range | Performed | Pathologist | | | | | At | Signature | + + + + + + | VENTRICULAR | 61 | BPM | [facility] | | | RATE EKG | | | | | + + + + + + | ATRIAL RATE | 60 | BPM | [facility] | | + + + + + + | P-R | 206 | ms | [facility] | | | INTERVAL | | | | | + + + + + + | QRS | 212 | ms | [facility] | | | DURATION | | | | | + + + + + + | Q-T | 560 | ms | [facility] | | | INTERVAL | | | | | + + + + + + | Q-T | 563 | ms | [facility] | | | INTERVAL | | | | | | (CORRECTED) | | | | | + + + + + + | QRS AXIS | 92 | degrees | [facility] | | + + + + + + | T AXIS | -79 | degrees | [facility] | | + + + + + + | INTERPRETAT | AV dual-paced | | [facility] | | | ION TEXT | rhythmAbnormal ECGWhen | | | | | | compared with ECG of | | | | | | 02-OCT-2019 14:39, | | | | | | (Unconfirmed)Electronic | | | | | | ventricular pacemaker | | | | | | has replaced Sinus | | | | | | bradycardiaConfirmed by | | | | | | LAVELLE DUFFY MD ([id number]) | | | | | | on 10/03/2019 7:16:47 AM | | | | + + [...] + + XR Chest PA and Lateral (10/02/2019 4:13 PM PDT) + + | Specimen | + + | | + + + + + | Impressions | Performed At | + + + | 1. SATISFACTORY APPEARANCE OF THE DUAL LEAD LEFT SUBCLAVIAN | [facility] | | PACEMAKER. NO VISIBLE PNEUMOTHORAX. THERE IS SIMILAR BORDERLINE | | | ENLARGEMENT OF THE CARDIAC SILHOUETTE. Dictated and Signed by: | | | Heron Mathis MD Electronically signed: 10/02/2019 4:22 PM | | + + + + + + | Narrative | Performed At | + + + | PA AND LATERAL CHEST 10/02/2019 4:13 PM CLINICAL HISTORY: post | [facility] | | cardiac device procedure, document lead position and rule out | | | pneumothorax COMPARISON: Radiography February 2018 FINDINGS: | | | A dual lead left subclavian pacemaker is now present, with intact | | | appearing leads terminating in the region of the right atrial | | | appendage and anterior right ventricle of the heart. Intact sternal | | | wires remain in position. There is similar borderline enlargement | | | of the cardiac silhouette with mild prominence of the pulmonary | | | vasculature. The lungs are clear allowing for lordotic positioning, | | | without visible pneumothorax or pleural effusion. Bones and soft | | | tissues are unremarkable. | | + + + + + | Procedure Note | + + | Maciel, Rad Results In - 10/02/2019 4:25 PM PDT PA AND LATERAL CHEST 10/02/2019 4:13 PM | | | | CLINICAL HISTORY: post cardiac device procedure, document lead position and rule | | out pneumothorax | | | | COMPARISON: Radiography February 2018 | | | | FINDINGS: A dual lead left subclavian pacemaker is now present, with intact | | appearing leads terminating in the region of the right atrial appendage and | | anterior right ventricle of the heart. Intact sternal wires remain in position. | | There is similar borderline enlargement of the cardiac silhouette with mild | | prominence of the pulmonary vasculature. The lungs are clear allowing for | | lordotic positioning, without visible pneumothorax or pleural effusion. Bones | | and soft tissues are unremarkable. | | | | IMPRESSION: | | | | 1. SATISFACTORY APPEARANCE OF THE DUAL LEAD LEFT SUBCLAVIAN PACEMAKER. NO | | VISIBLE PNEUMOTHORAX. THERE IS SIMILAR BORDERLINE ENLARGEMENT OF THE CARDIAC | | SILHOUETTE. | | | | Dictated and Signed by: Heron Mathis MD | | Electronically signed: 10/02/2019 4:22 PM | + + + +---------+ + + | Performing | Address | City/State/Zipcode | Phone Number | | Organization | | | | + +---------+ + + | [facility] | | | | + +---------+ + + CV EP PROCEDURE (10/02/2019 4:05 PM PDT) + + | Specimen | + + | | + + + + -+ | Narrative | Performed At | + + -+ | PERMANENT | [facility] | | PACEMAKER IMPLANTATION PATIENT NAME: Wilmer Pinon : | | | 1935: AGE: 83 y.o.MEDICAL RECORD NUMBER: | | | [id number] PRIMARY CARE:ROGER DumontURGEON:Hans | | | MD Francis DATE OF PROCEDURE: 10/02/2019 PROCEDURES | | | PERFORMED:1. Utilization of contrast agent for left subclavian | | | venography.2. Dual chamber [employer] / Anderson permanent pacemaker | | | implantation. INDICATIONS: 1. Symptomatic irreversible | | | bradycardia due to sinus node dysfunction DESCRIPTION OF PROCEDURE: | | | After informed consent was obtained, the patient was taken to the cath | | | lab. 1 g of cefazolin was given intravenously. Patient was | | | hooked up to EKG, pulse oximetry and blood pressure monitoring. All | | | parameters were kept stable during procedure. The [employer] | | | pacemaker advertising account representative was present in the operating room. Patient | | | received 2 mg of Versed and 100 Mcg of fentanyl intravenously for | | | conscious sedation during the procedure. The left shoulder area was | | | prepped and draped in the standard fashion. The left subclavian | | | venogram was performed using 20 mL of Conray IV contrast. | | | Fluoroscopy was utilized during the procedure. Patient was | | | positioned supine with wedge pillow placed under bilateral lower | | | extremities. Under sterile technique, and 30 mL of 2:3 ratio of 1% | | | lidocaine and 0.5% marcaine without epinephrine injection for local | | | anesthesia, the left subclavian venous access was obtained using a | | | thin-wall needle via modified Seldinger technique. A guidewire was | | | placed in the superior vena cava and secured with a hemostat to the | | | drape. Approximately 3 cm below the lower border of left clavicle, | | | in the mid subclavicular area, a 3 to 6 cm long lateral incision was | | | made with a #15 blade. The incision was extended by cautery down to | | | the prepectoral fascia. A pocket was formed to the inferior and | | | slightly superior by blunt dissection. The bleeders were stopped | | | with cautery. One piece of gauze soaked with normal saline was used | | | to pack the pocket. A guide wire was then pulled through into the | | | pocket. A 6 Georgian sheath was placed over the guidewire and the core | | | was removed. The additional guidewires were inserted through the | | | sheath. The sheath was then removed. The guidewires were secured | | | by hemostat, leaving one guidewire to be utilized for placement of an | | | 8 Georgian safe sheath. A safe sheath core and the guidewire were | | | removed. The ventricular lead with a curved stylette was advanced | | | into the right ventricular outflow tract under fluoroscopy. The | | | curved stylet was then exchanged for a straight one. The lead was | | | gently positioned into interventricular septum and screwed into | | | position. With partial retraction of the stylette, the lead appeared | | | to be stable. Appropriate slack was applied to the lead. The lead | | | testing revealed good sensing and pacing threshold as noted below. | | | There was no evidence of diaphragmatic stimulation at 10 V output. | | | The peel-away safe sheath was removed. The lead was anchored down | | | using a Ethibond 0, suturing the sleeve to the underlying fascia. | | | Using the same technique as mentioned above, another 8 Georgian safe | | | sheath was utilized to introduce an atrial lead, except that the | | | straight stylette was utilized before the curved one. The atrial | | | lead was positioned in the right atrial appendage. At this time the | | | stylets were removed from both leads. Under fluoroscopy, atrial and | | | ventricular leads and the slack were checked one more time, confirming | | | satisfactory position. The third guidewire was then removed. Both | | | leads were checked for model and serial numbers, and connected to a | | | pacemaker generator. Set screws, both, were securely ratcheted. | | | Both leads were tight and snug. With ratcheting the ventricular | | | and atrial leads, there was evidence of ventricular and atrial | | | tracking and pacing, respectively. The leads were coiled and placed | | | behind the fascia. The pocket was flushed with normal saline. | | | Hemostasis was obtained. A two layer running closure was performed | | | with a 2-0 Vicryl for prepectoral fascia and subcutaneous fatty | | | tissue. Continuous subcuticular suturing was performed with a 4-0 | | | Vicryl. The skin sealed with a layer of Dermabond. Pacemaker | | | interrogation and programming were performed with details as mentioned | | | below. Estimated blood loss was 20 mL. I reviewed the patient's | | | pre-sedation assessment and vital signs, supervised and directed the | | | administration of moderate sedation with continuous [id number] | | | attendance. My intra-service time was 45 minutes. See the procedure | | | log for more details. COMPLICATIONS: There were no complications. | | | The patient tolerated the procedure well. Postop chest x-ray | | | revealed that the atrial lead, ventricular lead and pacemaker | | | generator were in good position. There is no evidence of | | | pneumothorax. DEVICE INFORMATION: A. Pacemaker generator: [employer], | | | model #: PM 2272, serial #: [id number]. B. Atrial lead: [employer], | | | length 46 cm, model #: 2088 TC, serial #: [id number]. C. Ventricular | | | lead: [employer], length 52 cm, model #: 2088 TC, serial #: [id number]. | | | PACEMAKER TESTING: A. Atrial lead: Sensing 1.4 mV, threshold 1 V at | | | 0.4 ms, resistance 420 ohms. B. Ventricular lead: Sensing 10.6 mV, | | | threshold 0.5 V at 0.4 ms, resistance 590 ohms. PACEMAKER TESTING: | | | Mode: DDD. Lower rate limit: 60 Ppm. Upper limit: 120 Ppm. Hans | | | MD Francis10/02/2019 4:04 PM | | |assessment and vital signs, supervised and directed the administration of | | |moderate sedation with continuous dxns-zb-pfev attendance. My | | |intra-service time was [...] |A. Pacemaker generator: [employer], model #: PM 2272, serial #: [id number]. | | | | | |B. Atrial lead: [employer], length 46 cm, model #: 2088 TC, serial #: [id number] | | |[id number]. | | | | | |C. Ventricular lead: [employer], length 52 cm, model #: 2088 TC, serial #: | | |[id number]. | | | | | |PACEMAKER TESTING: | | |A. Atrial lead: Sensing 1.4 mV, threshold 1 V at 0.4 ms, resistance 420 | | |ohms. | | | | | |B. Ventricular lead: Sensing 10.6 mV, threshold 0.5 V at 0.4 ms, | | |resistance 590 ohms. | | | | | |PACEMAKER TESTING: | | |Mode: DDD. Lower rate limit: 60 Ppm. Upper limit: 120 Ppm. | | | | | | | | |Hans Blanco MD | | |10/02/2019 4:04 PM | | | | | | | | + + -+ + + | Procedure Note | + + | Hans Blanco MD - 10/02/2019 4:06 PM PDT Formatting of this note might be | | different from the original.PERMANENT PACEMAKER IMPLANTATIONPATIENT NAME: Wilmer Will | | Kathrin : 1935: AGE: 83 y.o. PRIMARY | | CARE:ROGER DumontURGEON:Hans Blanco MD DATE OF PROCEDURE: 10/02/2019 | | PROCEDURES PERFORMED:1. Utilization of contrast agent for left subclavian | | venography.2. Dual chamber [employer] / Anderson permanent pacemaker | | implantation.INDICATIONS: 1. Symptomatic irreversible bradycardia due to sinus node | | dysfunctionDESCRIPTION OF PROCEDURE:After informed consent was obtained, the patient was | | taken to the general labor forklift operator. 1 g of cefazolin was given intravenously. Patient was hooked | | up to EKG, pulse oximetry and blood pressure monitoring. All parameters were kept | | stable during procedure. The [employer] pacemaker advertising account representative was present in the | | operating room. Patient received 2 mg of Versed and 100 Mcg of fentanyl intravenously | | for conscious sedation during the procedure. The left shoulder area was prepped and | | draped in the standard fashion. The left subclavian venogram was performed using 20 mL | | of Conray IV contrast. Fluoroscopy was utilized during the procedure. Patient was | | positioned supine with wedge pillow placed under bilateral lower extremities. Under | | sterile technique, and 30 mL of 2:3 ratio of 1% lidocaine and 0.5% marcaine without | | epinephrine injection for local anesthesia, the left subclavian venous access was | | obtained using a thin-wall needle via modified Seldinger technique. A guidewire was | | placed in the superior vena cava and secured with a hemostat to the drape. | | Approximately 3 cm below the lower border of left clavicle, in the mid subclavicular | | area, a 3 to 6 cm long lateral incision was made with a #15 blade. The incision was | | extended by cautery down to the prepectoral fascia. A pocket was formed to the inferior | | and slightly superior by blunt dissection. The bleeders were stopped with cautery. | | One piece of gauze soaked with normal saline was used to pack the pocket. A guide wire | | was then pulled through into the pocket. A 6 Georgian sheath was placed over the | | guidewire and the core was removed. The additional guidewires were inserted through the | | sheath. The sheath was then removed. The guidewires were secured by hemostat, leaving | | one guidewire to be utilized for placement of an 8 Georgian safe sheath. A safe sheath | | core and the guidewire were removed. The ventricular lead with a curved stylette was | | advanced into the right ventricular outflow tract under fluoroscopy. The curved stylet | | was then exchanged for a straight one. The lead was gently positioned into | | interventricular septum and screwed into position. With partial retraction of the | | stylette, the lead appeared to be stable. Appropriate slack was applied to the lead. | | The lead testing revealed good sensing and pacing threshold as noted below. There was | | no evidence of diaphragmatic stimulation at 10 V output. The peel-away safe sheath was | | removed. The lead was anchored down using a Ethibond 0, suturing the sleeve to the | | underlying fascia.Using the same technique as mentioned above, another 8 Georgian safe | | sheath was utilized to introduce an atrial lead, except that the straight stylette was | | utilized before the curved one. The atrial lead was positioned in the right atrial | | appendage. At this time the stylets were removed from both leads. Under fluoroscopy, | | atrial and ventricular leads and the slack were checked one more time, confirming | | satisfactory position. The third guidewire was then removed. Both leads were checked | | for model and serial numbers, and connected to a pacemaker generator. Set screws, both, | | were securely ratcheted. Both leads were tight and snug. With ratcheting the | | ventricular and atrial leads, there was evidence of ventricular and atrial tracking and | | pacing, respectively. The leads were coiled and placed behind the fascia. The pocket | | was flushed with normal saline. Hemostasis was obtained. A two layer running closure | | was performed with a 2-0 Vicryl for prepectoral fascia and subcutaneous fatty tissue. | | Continuous subcuticular suturing was performed with a 4-0 Vicryl. The skin sealed with | | a layer of Dermabond. Pacemaker interrogation and programming were performed with | | details as mentioned below.Estimated blood loss was 20 mL. I reviewed the patient's | | pre-sedation assessment and vital signs, supervised and directed the administration of | | moderate sedation with continuous wyuh-lk-bbfs attendance. My intra-service time was 45 | | minutes. See the procedure log for more details. COMPLICATIONS: There were no | | complications. The patient tolerated the procedure well. Postop chest x-ray revealed | | that the atrial lead, ventricular lead and pacemaker generator were in good position. | | There is no evidence of pneumothorax.DEVICE INFORMATION: A. Pacemaker generator: [employer] | | Yeison, model #: PM 2272, serial #: [id number].B. Atrial lead: [employer], length 46 cm, model | | #: 2088 TC, serial #: [id number].C. Ventricular lead: [employer], length 52 cm, model #: | | 2088 TC, serial #: [id number].PACEMAKER TESTING: A. Atrial lead: Sensing 1.4 mV, | | threshold 1 V at 0.4 ms, resistance 420 ohms.B. Ventricular lead: Sensing 10.6 mV, | | threshold 0.5 V at 0.4 ms, resistance 590 ohms.PACEMAKER TESTING: Mode: DDD. Lower rate | | limit: 60 Ppm. Upper limit: 120 Ppm.Hans Blanco MD10/02/2019 4:04 PM | |PACEMAKER TESTING: | |Mode: DDD. Lower rate limit: 60 Ppm. Upper limit: 120 Ppm. | | | | | |Hans Blanco MD | |10/02/2019 4:04 PM | + + + +---------+ + + | Performing | Address | City/State/Zipcode | Phone Number | | Organization | | | | + +---------+ + + | [facility] | | | | + +---------+ + + ECG 12 lead (10/02/2019 2:39 PM PDT) + + + + + + | Component | Value | Ref Range | Performed | Pathologist | | | | | At | Signature | + + + + + + | VENTRICULAR | 46 | BPM | [facility] | | | RATE EKG | | | | | + + + + + + | ATRIAL RATE | 46 | BPM | [facility] | | + + + + + + | P-R | 426 | ms | [facility] | | | INTERVAL | | | | | + + + + + + | QRS | 154 | ms | [facility] | | | DURATION | | | | | + + + + + + | Q-T | 506 | ms | [facility] | | | INTERVAL | | | | | + + + + + + | Q-T | 442 | ms | [facility] | | | INTERVAL | | | | | | (CORRECTED) | | | | | + + + + + + | QRS AXIS | 58 | degrees | [facility] | | + + + + + + | T AXIS | -31 | degrees | [facility] | | + + + + + + | INTERPRETAT | Marked sinus bradycardia | | [facility] | | | ION TEXT | with 1st degree AV | | | | | | blockRight bundle branch | | | | | | blockT wave | | | | | | abnormality, consider | | | | | | anterolateral ischemiaT | | | | | | wave abnormality, | | | | | | consider inferior | | | | | | ischemiaAbnormal ECGWhen | | | | | | compared with ECG of | | | | | | 31-JUL-2019 | | | | | | 13:47,Inverted T waves | | | | | | have replaced | | | | | | nonspecific T wave | | | | | | abnormality in Inferior | | | | | | leadsConfirmed by | | | | | | LAVELLE DUFFY MD ([id number]) | | | | | | on 10/03/2019 7:16:23 AM | | | | + + [...] | | + +---------+ + + ECG - EXTERNAL SCAN (10/02/2019 12:00 AM PDT) + + + | Narrative | Performed At | + + + | Ordered by an | | | unspecified provider. | | + + + EP PROCEDURE - EXTERNAL SCAN (10/02/2019 12:00 AM PDT) + + + | Narrative | Performed At | + + + | Ordered by an | | | unspecified provider. | | + + + documented in this encounter Visit Diagnoses + + | Diagnosis | + + | Bradycardia - Primary Other specified cardiac dysrhythmias | + + | Sinoatrial node dysfunction (HCC) Sinoatrial node dysfunction | + + | Alfaro-Mendenhall syncope Conduction disorder, unspecified | + + documented in this encounter Administered Medications + +--------+---------+------+------+------+ | Medication Order | MAR | Action | Dose | Rate | Site | | | Action | Date | | | | + +--------+---------+------+------+------+ + +---+ | acetaminophen (TYLENOL) tablet | | | 650 mg 650 mg, Oral, EVERY 6 | | | HOURS PRN, Pain, Fever, Starting | | | 10/02/19 at 1638, | | | Post-op/Phase II | | + +---+ | | | + +---+ + +-------+ +------+---+---+ | amLODIPine (NORVASC) tablet 5 | Given | 10/03/19 | 5 mg | | | | mg 5 mg, Oral, DAILY, First dose | | 20 10:00 | | | | | on 4/25/20 at 0900 | | AM PDT | | | | + +-------+ +------+---+---+ +---+---+ | | | +---+---+ + +-------+ +--------+---+---+ | aspirin EC tablet 325 mg 325 | Given | 10/03/19 | 325 mg | | | | mg, Oral, DAILY, First dose on | | 20 10:00 | | | | | 10/03/19 at 0900, Do not cut | | AM PDT | | | | | or crush., | | | | | | + +-------+ +--------+---+---+ +---+---+ | | | +---+---+ + +-------+ +-----+---+---+ | ceFAZolin (ANCEF, KEFZOL) 1 g | Given | 10/02/19 | 1 g | | | | in sterile water 10 mL syringe | | 20 2:53 | | | | | (100 mg/mL) 1 g, Intravenous, | | PM PDT | | | | | Prior to Incision, Starting Fri | | | | | | | 10/02/19 at 1426, For 1 dose, Keep | | | | | | | in refrigerator. Give IV push | | | | | | | over 3-5 minutes., Pre-op, | | | | | | | Indications: Surgical Prophylaxis | | | | | | + +-------+ +-----+---+---+ +---+---+ | | | +---+---+ + +-------+ +--------+---+---+ | cloNIDine (CATAPRES) tablet 0.1 | Given | 10/02/19 | 0.1 mg | | | | mg 0.1 mg, Oral, NIGHTLY, First | | 20 8:00 | | | | | dose (after last modification) | | PM PDT | | | | | on Sat10/02/19 at 1900 | | | | | | + +-------+ +--------+---+---+ +---+---+ | | | +---+---+ + +-------+ +--------+---+ + | heparin 5,000 units/mL | Given | 10/03/19 | 5,000 | | Abdomen- | | injection 5,000 Units 5,000 | | 20 10:00 | Units | | RLQ | | Units, Subcutaneous, EVERY 12 | | AM PDT | | | | | HOURS (2 times per day), First | | | | | | | dose on Sat10/02/19 at 1445 | | | | | | + +-------+ +--------+---+ + +-------+ +--------+---+ + | Given | 10/02/19 | 5,000 | | Abdomen- | | | 20 8:01 | Units | | LLQ | | | PM PDT | | | | +-------+ +--------+---+ + +---+---+ | | | +---+---+ + +-------+ +-------+---+---+ | isosorbide mononitrate (IMDUR) | Given | 10/02/19 | 30 mg | | | | ER tablet 30 mg 30 mg, Oral, | | 20 8:01 | | | | | NIGHTLY, First dose (after last | | PM PDT | | | | | modification) on Sat10/02/19 at | | | | | | | 2100, Tablet may be cut where | | | | | | | scored but do not crush., | | | | | | + +-------+ +-------+---+---+ +---+---+ | | | +---+---+ + +-------+ +-------+---+---+ | isosorbide mononitrate (IMDUR) | Given | 10/03/19 | 60 mg | | | | ER tablet 60 mg 60 mg, Oral, | | 20 10:00 | | | | | DAILY, First dose on Sat10/03/19 | | AM PDT | | | | | at 0900, Tablet may be cut where | | | | | | | scored but do not crush., | | | | | | + +-------+ +-------+---+---+ +---+---+ | | | +---+---+ + +-------+ +-------+---+---+ | lisinopril (PRINIVIL, ZESTRIL) | Given | 10/03/19 | 20 mg | | | | tablet 20 mg 20 mg, Oral, 2 | | 20 10:00 | | | | | TIMES DAILY, First dose (after | | AM PDT | | | | | last modification) on Sat10/02/19 | | | | | | | at 2100, Hold for sbp < 140, | | | | | | + +-------+ +-------+---+---+ +-------+ +-------+---+---+ | Given | 10/02/19 | 20 mg | | | | | 20 8:01 | | | | | | PM PDT | | | | +-------+ +-------+---+---+ +---+---+ | | | +---+---+ + +---------+ +-----+-------+---+ | magnesium sulfate in dextrose 1 | New Bag | 10/02/19 | 1 g | 100 | | | g/100 mL IVPB 1 g 1 g, | | 20 5:26 | | mL/hr | | | Intravenous, Administer over 60 | | PM PDT | | | | | Minutes, ONCE, 10/02/19 at | | | | | | | 1500, For 1 dose, Maximum | | | | | | | recommended infusion rate = 1 | | | | | | | gram/hour., | | | | | | + +---------+ +-----+-------+---+ +---+---+ | | | +---+---+ + +-------+ +------+---+---+ | ondansetron (ZOFRAN) injection | Given | 10/02/19 | 4 mg | | | | 4 mg 4 mg, Intravenous, EVERY 6 | | 20 11:13 | | | | | HOURS PRN, Nausea, Vomiting, | | PM PDT | | | | | Starting 10/02/19 at 2301 | | | | | | + +-------+ +------+---+---+ + +---+ | | | + +---+ | oxyCODONE (ROXICODONE) tablet | | | 5-10 mg 5-10 mg, Oral, EVERY 4 | | | HOURS PRN, Pain, Starting Fri | | | 10/02/19 at 1638, Post-op/Phase II | | + +---+ | | | + +---+ + +-------+ +-------+---+---+ | pantoprazole (PROTONIX) DR | Given | 10/03/19 | 40 mg | | | | tablet 40 mg 40 mg, Oral, DAILY | | 20 6:32 | | | | | BEFORE BREAKFAST, First dose on | | AM PDT | | | | | Sat10/02/19 at 1445, Indication: | | | | | | | GERD | | | | | | + +-------+ +-------+---+---+ +---+---+ | | | +---+---+ + +-------+ +------+---+---+ | rOPINIRole (REQUIP) tablet 1 mg | Given | 10/02/19 | 1 mg | | | | 1 mg, Oral, NIGHTLY, First dose | | 20 8:00 | | | | | on Sat10/02/19 at 2100 | | PM PDT | | | | + +-------+ +------+---+---+ +---+---+ | | | +---+---+ + +-------+ +-------+---+---+ | rosuvastatin (CRESTOR) tablet | Given | 10/02/19 | 20 mg | | | | 20 mg 20 mg, Oral, NIGHTLY, | | 20 8:00 | | | | | First dose on Sat10/02/19 at 2100 | | PM PDT | | | | + +-------+ +-------+---+---+ +---+---+ | | | +---+---+ + +---------+ +-------+-------+ + | sodium chloride 0.9% (NS) | New Bag | 10/02/19 | 125 | 125 | Left Arm | | infusion at 125 mL/hr, | | 20 2:56 | mL/hr | mL/hr | | | Intravenous, CONTINUOUS, Starting | | PM PDT | | | | | Sat10/02/19 at 1445, For | | | | | | | procedure only, not to exceed 1 | | | | | | | liter., Pre-op | | | | | | + +---------+ +-------+-------+ + +---+---+ | | | +---+---+ + +-------+ +-------+---+---+ | torsemide (DEMADEX) tablet 10 | Given | 10/03/19 | 10 mg | | | | mg 10 mg, Oral, DAILY, First | | 20 11:18 | | | | | dose on 10/03/19 at 0900 | | AM PDT | | | | + +-------+ +-------+---+---+ +---+---+ | | | +---+---+ documented in this encounter
--- OUTSIDE RECORDS SUMMARY | ~2020-01-03 | XMS | Encounter Summary ---
Demographics + + + | Address | [address] [place] | | | [place] [address] | + + + | Home Phone | | + + + | Preferred Language | Unknown | + + + | Marital Status | | + + + | Christian Affiliation | 1077 | + + + | Race | Unknown | + + + | Ethnic Group | Unknown | + + + Author + + + | Author | [facility] | | | and [place] | + + + | Organization | [facility] | | | [...] Team Providers + +------+ + | Care Marketing Information Manager Name | Role | Phone | + +------+ + | Osbaldo Wood MD | PCP | | + +------+ + Reason for Visit + + + | Reason | Comments | + + + | Follow-up | | + + + | Coronary Artery | | | Disease | | + + + | Hypertension | | + + + | Congestive Heart | | | Failure | | + + + Encounter Details +--------+---------+ + + + | Date | Type | Department | Care Team | Description | +--------+---------+ + + + | 04/11/ | Office | [facility] | Hans Blanco, | Symptomatic | | 2018 | Visit | CARDIOLOGY [address] [place] | bradycardia (Primary | | | | [place], | [place], | Dx); Syncope, | | | | [place] [address] | [place] [address] | unspecified syncope | | | | [phone] | [phone] | type | | | | | | [...] + + + | Blood Pressure | 146/80 | 04/11/2018 10:40 AM | | | | | PDT | | + + + + + | Pulse | 62 | 04/11/2018 10:40 AM | | | | | PDT | | + + + + + | Temperature | - | - | | + + + + + | Respiratory Rate | 20 | 04/11/2018 10:40 AM | | | | | PDT | | + + + + + | Oxygen Saturation | - | - | | + + + + + | Inhaled Oxygen | - | - | | | Concentration | | | | + + + + + | Weight | 90.7 kg (200 lb) | 04/11/2018 10:40 AM | | | | | PDT | | + + + + + | Height | 185.4 cm (6' 1") | 04/11/2018 10:40 AM | | | | | PDT | | + + + + + | Body Mass Index | 26.39 | 04/11/2018 10:40 AM | | | | | PDT [...] of this encounter Patient Instructions Patient Instructions Nesha Alvarado RN - 04/11/2018 11:00 AM PDTStart taking Amlodipine 5 mg one time daily. A prescription has been sent to [facility] pharmacy in [place]. Take blood pressure and pulse once in the morning and once in the evening for two weeks and record on provided log. Please mail log back to clinic once completed. Follow up appointment: 1 year Provider: Hans Blanco MD Date: Check-In Time: documented in this encounter Progress Notes Hans Blanco MD - 04/11/2018 11:00 AM PDTFormatting of this note might be different f rom the original. PATIENT NAME: Wilmer Pinon : 1935: AGE: 82 y.o. PRIMARY CARE: Osbaldo Wood MD OUTPATIENT FOLLOW UP VISIT Date of Service: 04/11/2018 HISTORY OF PRESENT ILLNESS: Wilmer Pinon is a 82 y.o. male with a history of asymptomatic irreversible bradycardia , coronary artery disease, post CABG 1990, stage III chronic kidney disease, essential hyper tension and mixed hyperlipidemia. He is being seen today for follow up on syncope and abel cardia. He was last seen at which time patient was schedule for 48 Holter monitor and w as switched lovastatin to rosuvastatin 20 mg once a day. Since that time, patient reports terrance munoz has been feeling well. Patient is physically inactive due to knee pain. There is no chest pain or chest discomfort both at rest and on exertion. Patient denies breathlessness. There is no palpitation dizziness or lightheadedness. Patient can sleep on one pillow at night wit hout difficulty breathing. MEDICAL, SURGICAL, AND PERSONAL HISTORY [...] Ganglia Polycythemia vera Diabetes S/P CABG x 1990 Restless leg syndrome CURRENT MEDICATIONS Current Outpatient Prescriptions Medication Sig Dispense Refill allopurinol (ZYLOPRIM) 300 mg tablet Take 300 mg by mouth Daily. aspirin 325 mg EC tablet Take 325 mg by mouth Daily. B Complex Vitamins (B COMPLEX 1 PO) Take 1 tablet by mouth Daily. cetirizine (ZYRTEC) 10 mg tablet Take 10 mg by mouth Daily. cholecalciferol (VITAMIN D-3) 2000 UNITS TABS Take 2,000 Units by mouth Daily. indomethacin (INDOCIN) 50 MG capsule Take 50 mg by mouth 2 times daily (with breakfast & dinner). isosorbide mononitrate (IMDUR) 30 mg ER tablet [...] 1 tablet by mouth 2 times daily. mirabegron (MYRBETRIQ) 25 mg ER tablet Take 25 mg by mouth Daily. nitroglycerin (NITROSTAT) 0.[address] 0.4 mg under the tongue every 5 minute s as needed for Chest pain. omeprazole (PRILOSEC) 40 MG capsule Take 40 mg by mouth every morning (before breakfast ). rosuvastatin (CRESTOR) 20 mg tablet Take 1 tablet by mouth nightly. 30 tablet 5 No current facility-administered medications for this visit. ALLERGIES Allergies Allergen Reactions Atorvastatin Other (See Comments) Other Hydrocodone Other (See Comments) "I go into spasms" Oxycodone Other (See Comments) "I go into spasms" Tramadol Other (See Comments) "I go into spasms" Tramadol Caused spasms and pt to be in hospital ROS Review of Systems Constitutional: Negative for malaise/fatigue. Respiratory: Positive for shortness of breath. Cardiovascular: Positive for chest pain and palpitations. Negative for leg swelling. Neurological: Negative for dizziness and weakness. Lightheaded = No OBJECTIVE: PHYSICAL EXAM BP 146/80 | Pulse 62 | Resp 20 | Ht 1.854 m (6' 1") | Wt 90.7 kg (200 lb) | BMI 26.39 kg/m Physical Exam Constitutional: He is oriented to person, place, and time. He appears well-developed and we ll-nourished. Male individual, without acute distress. Neck: Normal carotid pulses and no JVD present. Carotid bruit is not present. Cardiovascular: Normal rate, regular rhythm, S1 normal, S2 normal and intact distal pulses. PMI is not displaced. Exam reveals no gallop and no friction rub. Murmur heard. Systolic murmur is present with a grade of 1/6 at the upper right sternal border Ejection Pulses: Carotid pulses are 2+ on the right side, and 2+ on the left side. Posterior tibial pulses are 2+ on the right side, and 2+ on the left side. Pulmonary/Chest: Effort normal and breath sounds normal. No accessory muscle usage. No resp iratory distress. He has no wheezes. He has no rhonchi. He has no rales. Abdominal: Soft. Normal appearance and normal aorta. He exhibits no abdominal bruit. There is no hepatosplenomegaly. There is no tenderness. Musculoskeletal: He exhibits edema (bilateral trace leg swelling ). Neurological: He is alert and oriented to person, place, and time. Gait normal. Skin: Skin is warm and dry. No cyanosis. Nails show no clubbing. Psychiatric: He has a normal mood and affect. His mood appears not anxious. He does not exh ibit a depressed mood. LAB RESULTS reviewed during visit today primarily from [facility]: LIPID No results found for: CHOL, TRIG, HDL, LDL, CHOLHDL, LDLEX, HDLEX, TRIGEX, CHOLEX CHEMISTRY Lab Results Component Value Date GLU 97 03/11/2018 NA 139 03/11/2018 K 3.4 (L) 03/11/2018 CL 105 03/11/2018 CO2 26 03/11/2018 CALCIUM 9.5 03/11/2018 ALKPHOS 50 03/08/2018 AST 20 03/08/2018 ALT 12 03/08/2018 BILITOT 0.9 03/08/2018 CREA 1.29 03/11/2018 BUN 18 03/11/2018 HEMATOLOGY Lab Results Component Value Date WBC 7.8 03/10/2018 HGB 14.1 03/10/2018 HCT 40.3 03/10/2018 PLT 244 03/10/2018 Above data and testing is reviewed this visit; testing below is historical data unless othe rwise specified. ASSESSMENT: 1. Bradycardia, irreversible, asymptomatic A. Echocardiogram [...] returned, no symptoms wer e reported. D. Today, patient reports he has been feeling well. Patient is physically inactive due to knee pain.There is no signs and symptoms of overt congestive heart failure. He is in a cla ss I of [place] [employer] functional class. There is bilateral trace leg swelling on physical examination. 2. Coronary artery disease A. CABG 1990. B. Patient denies chest pain. 3. Hypertension A.Patient reports blood pressure at home was as high as 180. 4. Stage III chronic kidney disease A. eGFR is 53 on 03/11/2018. 5. Inactivity A. Patient remains inactive. 6. Hyperlipidemia A. Patient is on rosuvastatin 20 mg. PLAN: 1. Start amlodipine 5 mg once a day to lower blood pressure. 2. Check blood pressure x 2 weeks. 3. I recommend a therapeutic lifestyle change including walking 30 minutes a day and choos ing healthy choices of diet. 4. Follow-up in one year. I, Sissy Mcmullen, am acting as a scribe on behalf of, and in the presence of Hans feliciano MD. I have reviewed and edited this note. Sissy Mcmullen, [employer] Programmer 04/11/2018 IHans MD, personally performed the services described in this documentation, as scribed in my presence and it is both accurate and complete. Sissy Mcmullen, Med Ass t 04/11/2018 10:58 Electronically signed by: Hans Blanco MD [facility] 04/11/2018 Portions of this chart may have been created with [employer] voice recognition software. Occasi onal wrong-word [...] | 01/20/ | Office | Cardiology | Francis Hans, | | | 2019 | Visit | | [address] [place] | | | | | | [place], | | | | | | [place] [address] | | | | | | [phone] | | | | | | | | +--------+---------+ + + + | 02/25/ | Office | Cardiology | Hans Blanco, | | | 2020 | Visit | | MD [address] | | | | | | [place], | | | | | | [place] [address] | | | | | | [phone] | | | | | | | | +--------+---------+ + + + documented as of this encounter Visit Diagnoses + + | Diagnosis | + + | Symptomatic bradycardia - Primary Other specified cardiac dysrhythmias | + + | Syncope, unspecified syncope type | + + documented in this encounter
--- OUTSIDE RECORDS SUMMARY | ~2020-01-03 | XMS | Encounter Summary ---
Demographics + + + | Address | [address] | | | [place] [address] | + + + | Home Phone | | + + + | Preferred Language | Unknown | + + + | Marital Status | | + + + | Lutheran Affiliation | 1077 | + + + | Race | Unknown | + + + | Ethnic Group | Unknown | + + + Author + + + | Author | [facility] | | | and [place] | + + + | Organization | [facility] | | | and [...] Team Providers + +------+ + | Care Affiliate Marketing Specialist Name | Role | Phone | + +------+ + | Osbaldo Wood MD | PCP | | + +------+ + Encounter Details +--------+ + + + + | Date | Type | Department | Care Team | Description | +--------+ + + + + | 07/22/ | Orders Only | [facility] | Estevan De La Rosa | | | 2013 | | NEPRHOLOGY [place] | MD [address] | | | | | [address] | [address] | | | | | [address] | [place] | | | | | [address] | [phone] | | | | | [phone] | [phone] | | | | | | | [...] [place] | | | | | | [place], | | | | | | [place] [address] | | | | | | [phone] | | | | | | | | +--------+---------+ + + + | 02/25/ | Office | Cardiology | Hans Blanco, | | | 2019 | Visit | | [address] | | | | | | [place], | | | | | | [place] [address] | | | | | | [phone] | | | | | | | | +--------+---------+ + + + documented as of this encounter Procedures + +--------+ + + + | Procedure Name | Priori | Date/Time | Associated Diagnosis | Comments | | | ty | | | | + +--------+ + + + | EXTERNAL LAB: CBC | Routin | 11/16/2013 | | Results for this | | | e | 12:00 AM | | procedure are in the | | | | PDT | | results section. | + +--------+ + + + | LIPID PANEL | Routin | 11/16/2013 | | Results for this | | | e | 12:00 AM | | procedure are in the | | | | PDT | | results section. | + +--------+ + + + | PSA, SCREEN | Routin | 11/16/2013 | | Results for this | | | e | 12:00 AM | | procedure are in the | | | | PDT | | results section. | + +--------+ + + + | PROTEIN/CREATININE | Routin | 11/16/2013 | | Results for this | | RATIO, URINE | e | 12:00 AM | | procedure are in the | | | | PDT | | results section. | + +--------+ + + + | MICROALBUMIN/CREATIN | Routin | 11/16/2013 | | Results for this | | INE RATIO, URINE | e | 12:00 AM | | procedure are in the | | TEST | | PDT | | results section. | + +--------+ + + + | PROTEIN, URINE, | Routin | 11/16/2013 | | Results for this | | RANDOM | e | 12:00 AM | | procedure are in the | | | | PDT | | results section. | + +--------+ + + + | CREATININE, URINE, | Routin | 11/16/2013 | | Results for this | | RANDOM | e | 12:00 AM | | procedure are in the | | | | PDT | | results section. | + +--------+ + + + | CREATININE, URINE, | Routin | 11/16/2013 | | Results for this | | RANDOM | e | 12:00 AM | | procedure are in the | | | | PDT | | results section. | + +--------+ + + + | SEDIMENTATION RATE, | Routin | 11/16/2013 | | Results for this | | AUTOMATED | e | 12:00 AM | | procedure are in the | | | | PDT | | results section. | + +--------+ + + + | HEMOGLOBIN A1C | Routin | 11/16/2013 | | Results for this | | | e | 12:00 AM | | procedure are in the | | | | PDT | | results section. | + +--------+ + + + | RENAL FUNCTION PANEL | Routin | 11/16/2013 | | Results for this | | | e | 12:00 AM | | procedure are in the | | | | PDT | | results section. | + +--------+ + + + | COMPREHENSIVE | Routin | 11/16/2013 | | Results for this | | METABOLIC PANEL | e | 12:00 AM | | procedure are in the | | | | PDT | | results section. | + +--------+ + + + | EXTERNAL LAB: CBC | Routin | 07/22/2013 | | Results for this | | | e | 12:00 AM | | procedure are in the | | | | PST | | results section. | + +--------+ + + + | COMPREHENSIVE | Routin | 07/22/2013 | | Results for this | | METABOLIC PANEL | e | 12:00 AM | | procedure are in the | | | | PST | | results section. | + +--------+ + + + documented in this encounter Results Hemoglobin A1C (11/16/2013 12:00 AM PDT) + +-------+ + + + | Component | Value | Ref Range | Performed | Pathologist | | | | | At | Signature | + +-------+ + + + | Hemoglobin | 6.9 | % | EXTERNAL | | | A1c | | | LAB | | + +-------+ + + + + + | Specimen | + + | | + + + +---------+ + + | Performing | Address | City/State/Zipcode | Phone Number | | Organization | | | | + +---------+ + + | EXTERNAL LAB | | | | + +---------+ + + Protein/Creatinine Ratio, Urine (11/16/2013 12:00 AM PDT) + +-------+ + + + | Component | Value | Ref Range | Performed | Pathologist | | | | | At | Signature | + +-------+ + + + | Protein/Cre | 155.6 | | EXTERNAL | | | at Ratio | | | LAB | | + +-------+ + + + + + | Specimen | + + | Urine specimen | | (specimen) | + + + +---------+ + + | Performing | Address | City/State/Zipcode | Phone Number | | Organization | | | | + +---------+ + + | EXTERNAL LAB | | | | + +---------+ + + Microalbumin/Creatinine Ratio, Urine (11/16/2013 12:00 AM PDT) + +-------+ + + + | Component | Value | Ref Range | Performed | Pathologist | | | | | At | Signature | + +-------+ + + + | ALBUMIN/CRE | 75.6 | | EXTERNAL | | | ATININE | | | LAB | | | RATIO.URINE | | | | | | .ORD.MG/G | | | | | | ([place]OR) | | | | | | | | | | | | | | | | | + +-------+ + + + + + | Specimen | + + | Urine specimen | | (specimen) | + + + +---------+ + + | Performing | Address | City/State/Zipcode | Phone Number | | Organization | | | | + +---------+ + + | EXTERNAL LAB | | | | + +---------+ + + Protein, Urine, Random (11/16/2013 12:00 AM PDT) + +-------+ + + + | Component | Value | Ref Range | Performed | Pathologist | | | | | At | Signature | + +-------+ + + + | Protein, | 7 | | EXTERNAL | | | Urine [...] | | | + +---------+ + + Creatinine, Urine, Random (11/16/2013 12:00 AM PDT) + +-------+ + + + | Component | Value | Ref Range | Performed | Pathologist | | | | | At | Signature | + +-------+ + + + | Creatinine, | 45 | | EXTERNAL | | | 24H Ur | | | LAB | | + +-------+ + + + + + | Specimen | + + | Urine specimen | | (specimen) | + + + +---------+ + + | Performing | Address | City/State/Zipcode | Phone Number | | Organization | | | | + +---------+ + + | EXTERNAL LAB | | | | + +---------+ + + Creatinine, Urine, Random (11/16/2013 12:00 AM PDT) + +-------+ + + + | Component | Value | Ref Range | Performed | Pathologist | | | | | At | Signature | + +-------+ + + + | Creatinine, | 45 | | EXTERNAL | | | 24H Ur | | | LAB | | + +-------+ + + + + + | Specimen | + + | Urine specimen | | (specimen) | + + + +---------+ + + | Performing | Address | City/State/Zipcode | Phone Number | | Organization | | | | + +---------+ + + | EXTERNAL LAB | | | | + +---------+ + + Sedimentation rate, automated (11/16/2013 12:00 AM PDT) + +-------+ + + + | Component | Value | Ref Range | Performed | Pathologist | | | | | At | Signature | + +-------+ + + + | Sed Rate | 8 | | EXTERNAL | | | | [...] + +---------+ + + External Lab: CBC (11/16/2013 12:00 AM PDT) + +-------+ + + + | Component | Value | Ref Range | Performed | Pathologist | | | | | At | Signature | + +-------+ + + + | WBC | 6.9 | 10 | EXTERNAL | | | | | | LAB | | + +-------+ + + + | Non- | 4.55 | 10 | EXTERNAL | | | Red Blood | | | LAB | | | Cells | | | | | | Counted | | | | | + +-------+ + + + | Hemoglobin | 15.3 | g/dL | EXTERNAL | | | | | | LAB | | + +-------+ + + + | Hematocrit, | 44.9 | % | EXTERNAL | | | POC | | | LAB | | + +-------+ + + + | MCV | 98.6 | fL | EXTERNAL | | | | | | LAB | | + +-------+ + + + | MCH | 34 | pg | EXTERNAL | | | | | | LAB | | + +-------+ + + + | MCHC | 34 | g/dL | EXTERNAL | | | | | | LAB | | + +-------+ + + + | Platelet | 203 | K/ L | EXTERNAL | | | Count | | | LAB | | | Plasma | | | | | + +-------+ + + + | RDW-CV | 14.9 | % | EXTERNAL | | | | | | LAB | | + +-------+ + + + | MPV | | fL | EXTERNAL | | | | | | LAB | | + +-------+ + + + | Differentia | Auto | | EXTERNAL | | | l Type | | | LAB | | + +-------+ + + + | % Segmented | 54.4 | % | EXTERNAL | | | | | | LAB | | | Neutrophils | | | | | + +-------+ + + + | % | 23.6 | % | EXTERNAL | | | Lymphocytes | | | LAB | | + +-------+ + + + | % Monocytes | 11.9 | % | EXTERNAL | | | | | | LAB | | + +-------+ + + + | % | 9.2 | % | EXTERNAL | | | Eosinophils | | | LAB | | + +-------+ + + + | % Basophils | 0.9 | % | EXTERNAL | | | | | | LAB | | + +-------+ + + + | Absolute | | / L | EXTERNAL | | | Segmented | | | LAB | | | Neutrophils | | | | | + +-------+ + + + | Absolute | | / L | EXTERNAL | | | Lymphocytes | | | LAB | | + +-------+ + + + | Absolute | | / L | EXTERNAL | | | Monocytes | | | LAB | | + +-------+ + + + | Absolute | | / L | EXTERNAL | | | Eosinophils | | | LAB | | + +-------+ + + + | Absolute | | [...] | | | + +---------+ + + PSA, Screen (11/16/2013 12:00 AM PDT) + +-------+ + + + | Component | Value | Ref Range | Performed | Pathologist | | | | | At | Signature | + +-------+ + + + | PSA, Free | 1.09 | ng/mL | EXTERNAL | | | Pct | | | LAB | | + [...] + +---------+ + + Renal Function Panel (11/16/2013 12:00 AM PDT) + +-------+ + + + | Component | Value | Ref Range | Performed | Pathologist | | | | | At | Signature | + +-------+ + + + | Glucose, | 137 | mg/dL | EXTERNAL | | | Fasting | | | LAB | | + +-------+ + + + | BUN | 17 | mg/dL | EXTERNAL | | | | | | LAB | | + +-------+ + + + | Creatinine | 1.25 | mg/dL | EXTERNAL | | | | | | LAB | | + +-------+ + + + | PHOSPHORUS | | mg/dL | EXTERNAL | | | | | | LAB | | + +-------+ + + + | Albumin | 3.9 | | EXTERNAL | | | | | | LAB | | + +-------+ + + + | Na | 137 | mmol/L | EXTERNAL | | | | | | LAB | | + +-------+ + + + | K | 3.8 | mmol/L | EXTERNAL | | | | | | LAB | | + +-------+ + + + | Cl | 99 | mmol/L | EXTERNAL | | | | | | LAB | | + +-------+ + + + | CO2 | 28 | mmol/L | EXTERNAL | | | | | | LAB | | + +-------+ + + + | Anion Gap | 13.8 | mmol/L | EXTERNAL | | | | | | LAB | | + +-------+ + + + | eGFR if not | | | EXTERNAL | | | | | | LAB | | | [place] | | | | | + +-------+ + + + | Phosphorus, | 2.7 | | EXTERNAL | | | Inorganic | | | LAB | | + +-------+ + + + | BUN/Creatin | 13.6 | | EXTERNAL | | | ine Ratio | | | LAB | | + +-------+ + + + | Calcium | 9.8 | mg/dL | EXTERNAL | | | | | | LAB | | + +-------+ + + + | Estimated | 56 | mg/dL | EXTERNAL | | | GFR [...] | + +---------+ + + Lipid Panel (11/16/2013 12:00 AM PDT) + +-------+ + + + | Component | Value | Ref Range | Performed | Pathologist | | | | | At | Signature | + +-------+ + + + | Cholesterol | 127 | mg/dL | EXTERNAL | | | | | | LAB | | + +-------+ + + + | Triglycerid | 147 | mg/dL | EXTERNAL | | | es | | | LAB | | + +-------+ + + + | HDL | 28.2 | mg/dl | EXTERNAL | | | | | | LAB | | + +-------+ + + + | LDL, | 69 | mg/dL | EXTERNAL | | | Calculated | | | LAB | | + +-------+ + + + | LDl/HDL | | | EXTERNAL | | | Ratio | | | LAB | | + +-------+ + + + | Chol/HDL | 4.5 | | EXTERNAL | | | Ratio | | | LAB | | + +-------+ + + + | VLDL | 29 | mg/dL | EXTERNAL | | | | | | LAB | | + +-------+ + + + | Non HDL | 99 | | EXTERNAL | | | Chol. | | | LAB | | | (LDL+VLDL) | | | | | + +-------+ + + + + + | Specimen | + + | Blood specimen | | (specimen) | + + + +---------+ + + | Performing | Address | City/State/Zipcode | Phone Number | | Organization | | | | + +---------+ + + | EXTERNAL LAB | | | | + +---------+ + + Comprehensive Metabolic Panel (11/16/2013 12:00 AM PDT) + +-------+ + + + | Component | Value | Ref Range | Performed | Pathologist | | | | | At | Signature | + +-------+ + + + | Glucose, | 137 | mg/dL | EXTERNAL | | | Fasting | | | LAB | | + +-------+ + + + | BUN | 17 | mg/dL | EXTERNAL | | | | | | LAB | | + +-------+ + + + | Creatinine | 1.24 | mg/dL | EXTERNAL | | | | | | LAB | | + +-------+ + + + | BUN/Creatin | 13.7 | | EXTERNAL | | | ine Ratio | | | LAB | | + +-------+ + + + | Calcium | 9.7 | mg/dL | EXTERNAL | | | | | | LAB | | + +-------+ + + + | Protein, | 6.6 | g/dL | EXTERNAL | | | Total | | | LAB | | + +-------+ + + + | Albumin | 3.9 | | EXTERNAL | | | | | | LAB | | + +-------+ + + + | Globulin | 2.7 | | EXTERNAL | | | | | | LAB | | + +-------+ + + + | A/G Ratio | 1.4 | | EXTERNAL | | | | | | LAB | | + +-------+ + + + | Bilirubin | 0.7 | mg/dL | EXTERNAL | | | Total | | | LAB | | + +-------+ + + + | ALP, | 71 | | EXTERNAL | | | External | | | LAB | | + +-------+ + + + | ALT | 25 | U/L | EXTERNAL | | | | | | LAB | | + +-------+ + + + | AST | 24 | U/L | EXTERNAL | | | | | | LAB | | + +-------+ + + + | Na | 136 | mmol/L | EXTERNAL | | | | | | LAB | | + +-------+ + + + | K | 3.8 | mmol/L | EXTERNAL | | | | | | LAB | | + +-------+ + + + | Cl | 98 | mmol/L | EXTERNAL | | | | | | LAB | | + +-------+ + + + | CO2 | 29 | mmol/L | EXTERNAL | | | | | | LAB | | + +-------+ + + + | Anion Gap | 12.8 | mmol/L | EXTERNAL | | | | | | LAB | | + +-------+ + + + | Estimated | 56 | mg/dL | EXTERNAL | | | GFR [...] + +---------+ + + External Lab: CBC (07/22/2013 12:00 AM PST) + +-------+ + + + | Component | Value | Ref Range | Performed | Pathologist | | | | | At | Signature | + +-------+ + + + | WBC | 6.9 | 10 | EXTERNAL | | | | | | LAB | | + +-------+ + + + | Non- | 4.51 | 10 | EXTERNAL | | | Red Blood | | | LAB | | | Cells | | | | | | Counted | | | | | + +-------+ + + + | Hemoglobin | 15.1 | g/dL | EXTERNAL | | | | | | LAB | | + +-------+ + + + | Hematocrit, | 45.2 | % | EXTERNAL | | | POC | | | LAB | | + +-------+ + + + | MCV | 100.3 | fL | EXTERNAL | | | | | | LAB | | + +-------+ + + + | MCH | 33 | pg | EXTERNAL | | | | | | LAB | | + +-------+ + + + | MCHC | 33 | g/dL | EXTERNAL | | | | | | LAB | | + +-------+ + + + | Platelet | 213 | K/ L | EXTERNAL | | | Count | | | LAB | | | Plasma | | | | | + +-------+ + + + | RDW-CV | 14.2 | % | EXTERNAL | | | | | | LAB | | + +-------+ + + + | MPV | | fL | EXTERNAL | | | | | | LAB | | + +-------+ + + + | Differentia | Auto | | EXTERNAL | | | l Type | | | LAB | | + +-------+ + + + | % Segmented | 51.8 | % | EXTERNAL | | | | | | LAB | | | Neutrophils | | | | | + +-------+ + + + | % | 24.6 | % | EXTERNAL | | | Lymphocytes | | | LAB | | + +-------+ + + + | % Monocytes | 11.8 | % | EXTERNAL | | | | | | LAB | | + +-------+ + + + | % | 10.6 | % | EXTERNAL | | | Eosinophils | | | LAB | | + +-------+ + + + | % Basophils | 1.2 | % | EXTERNAL | | | | | | LAB | | + +-------+ + + + | Absolute | | / L | EXTERNAL | | | Segmented | | | LAB | | | Neutrophils | | | | | + +-------+ + + + | Absolute | | / L | EXTERNAL | | | Lymphocytes | | | LAB | | + +-------+ + + + | Absolute | | / L | EXTERNAL | | | Monocytes | | | LAB | | + +-------+ + + + | Absolute | | / L | EXTERNAL | | | Eosinophils | | | LAB | | + +-------+ + + + | Absolute | | [...] | | | + +---------+ + + Comprehensive Metabolic Panel (07/22/2013 12:00 AM PST) + +-------+ + + + | Component | Value | Ref Range | Performed | Pathologist | | | | | At | Signature | + +-------+ + + + | Glucose, | 231 | mg/dL | EXTERNAL | | | Fasting | | | LAB | | + +-------+ + + + | BUN | 25 | mg/dL | EXTERNAL | | | | | | LAB | | + +-------+ + + + | Creatinine | 1.43 | mg/dL | EXTERNAL | | | | | | LAB | | + +-------+ + + + | BUN/Creatin | 17.5 | | EXTERNAL | | | ine Ratio | | | LAB | | + +-------+ + + + | Calcium | 9.2 | mg/dL | EXTERNAL | | | | | | LAB | | + +-------+ + + + | Protein, | 6.7 | g/dL | EXTERNAL | | | Total | | | LAB | | + +-------+ + + + | Albumin | 4.3 | | EXTERNAL | | | | | | LAB | | + +-------+ + + + | Globulin | 2.4 | | EXTERNAL | | | | | | LAB | | + +-------+ + + + | A/G Ratio | 1.8 | | EXTERNAL | | | | | | LAB | | + +-------+ + + + | Bilirubin | 0.5 | mg/dL | EXTERNAL | | | Total | | | LAB | | + +-------+ + + + | ALP, | 74 | | EXTERNAL | | | External | | | LAB | | + +-------+ + + + | ALT | 69 | U/L | EXTERNAL | | | | | | LAB | | + +-------+ + + + | AST | 55 | U/L | EXTERNAL | | | | | | LAB | | + +-------+ + + + | Na | 134 | mmol/L | EXTERNAL | | | | | | LAB | | + +-------+ + + + | K | 4.1 | mmol/L | EXTERNAL | | | | | | LAB | | + +-------+ + + + | Cl | 97 | mmol/L | EXTERNAL | | | | | | LAB | | + +-------+ + + + | CO2 | 23 | mmol/L | EXTERNAL | | | | | | LAB | | + +-------+ + + + | Anion Gap | 18.1 | mmol/L | EXTERNAL | | | | | | LAB | | + +-------+ + + + | Estimated | 48 | mg/dL | EXTERNAL | | | GFR [...]
--- OUTSIDE RECORDS SUMMARY | ~2020-01-03 | XMS | Encounter Summary ---
Demographics + + + | Address | [address] | | | [place] [address] | + + + | Home Phone [...] Team Providers + +------+ + | Care Portainer Operator Name | Role | Phone | + +------+ + | Ana Maria Yuan MD | PCP | | + +------+ + Reason for Visit +--------+--------+ + | Reason | Onset | Comments | | | Date | | +--------+--------+ + | Other | 10/11/ | Possible atrial lead dislodgement | | | 2019 | | +--------+--------+ + Encounter Details +--------+ + + + + | Date | Type | Department | Care Team | Description | +--------+ + + + + | 10/11/ | Telephone | [facility] | ShawncarlasamHans, | Other (Possible | | 2019 | | CARDIOLOGY [address] | atrial lead | | | | [place], | [place], | dislodgement) | | | | [place] [address] | [place] [address] | | | | | [phone] | [phone] | | | | | | | [...] this encounter Miscellaneous Notes Telephone Encounter - Lawanda Turcios RN - 10/13/2019 4:48 PM PDTAtrial lead is confirmed t o be dislodged, patient to have virtual visit with Hans Blanco MD 10/14/2019. Electronic ally signed by: Lawanda Turcios RN 10/13/2019 4:49 PMElectronically signed by CASPER Peterson 10/13/2019 4:49 PM PDTTelephone Encounter - RepLawanad walker RN - 10/12/2019 2:23 PM PDTWill smiley called back, explained we are seeing trouble with the atrial lead and need to have Jorge do an Xray and then come up stairs for a device check afterward. Electronically signed by: Pat Turcios RN 10/12/2019 2:24 PM 2:2 5 PM PDTTelephone Encounter - RepoffLawanda RN - 10/12/2019 12:02 PM PDTPatient's [place] sh [place]ws P wave has diminished from 1.2 at implant and is now 0.5-0.9 in sinus rhythm. Consecutiv e PVC episodes appear to be sinus with atrial undersensing. Per Hans Blanco MD Chest X ray to be ordered to confirm and patient to be scheduled next week for revision if needed. A ttempted to reach patient, no answer, no voicemail. Electronically signed by: Lawanda Turcios RN 10/12/2019 12:05 PM docu mented in this encounter Plan of Treatment +--------+---------+ + + + | Date | Type | Specialty | Care Team | Description | +--------+---------+ + + + | 01/20/ | Office | Cardiology | Hans Blanco, | | | 2019 | Visit | | MD [address] | | | | | | [place], | | | | | | [place] [address] | | | | | | [phone] | | | | | | | | +--------+---------+ + + + | 02/25/ | Office | Cardiology | Hans Blanco, | | | 2019 | Visit | | MD [address] | | | | | | [place], | | | | | | [place] [address] | | | | | | [phone] | | | | | | | | +--------+---------+ + + + documented as of this encounter Results XR Chest PA and [...] Displacement of atrial pacemaker leads, initial encounter - Primary | + + | Sinoatrial node dysfuntion - bradycardia Sinoatrial node dysfunction | + + | Pacemaker, Dual Chamber, MRI Capable, [facility] [place] 10/02/2019 Francis Cardiac pacemaker | | in situ | + + documented in this encounter"
--- OUTSIDE RECORDS SUMMARY | ~2020-01-03 | XMS | Encounter Summary ---
Demographics + + + | Address | [address] [facility] | | | [employer] [place] [address] | + + + | Home Phone | | + + + | Preferred Language | Unknown | + + + | Marital Status | | + + + | Quaker Affiliation | [id number] | + + + [...] Team Providers + +------+ + | Care Pump Technician Name | Role | Phone | [...] | | | | | | | ([facility]) | | | +--------+--------+ + + + + Encounter Details +--------+ + + + + | Date | Type | Department | Care Team | Description | +--------+ + + + + | 03/08/ | Hospital | [facility] | Deandre Rocha | Syncope, unspecified | | 2018 - | Encounter | [facility] ICU [address] | DO Demarcus [address] | syncope type | | | | [place], | [address] [place] | (Primary Dx); Acute | | 03/11/ | | [facility] [address] | [facility] [place] [address] | renal failure | | 2018 | | [phone] | [phone] | superimposed on | | | | | | chronic kidney | | | | | Boni Sanchez MD | disease, unspecified | | | | | [address] | CKD stage, | | | | | [place] | unspecified acute | | | | | [address] | renal failure type | | | [...] might be different fro m the original. [place], [place] HOSPITALIST DISCHARGE SUMMARY Pt. Name/Age/: Wilmer [...] to be seen this week Contact information: [address] [place] [address] Hans Blanco MD. Specialty: Cardiology Why: Mar 26 check in at 11 am Contact information: [place] [id number] Condition: Patient being discharged with condition improved Greater than 30 minutes were spent on discharge and coordination of post-hospital care. (trudy kelley) Electronically signed by: Tyler Mabry MD, 03/11/2018 9:46 [facility] Reference. This is NOT part of the patient's formal assessment section. In the assessment or plan section of notes the author may date some of the subsections with a number such as "" or "" to indicate the date of that entry [...] this chart may have been created with [employer] voice recognition software. Occasi onal wrong-word or [...] might be different fro m the original. [place] HOSPITALIST PROGRESS NOTE Patient: Wilmer Pinon : 1935: Age: 82 y.o. MedRec: [id number] PCP: Osbaldo Wood MD Admission date: 03/08/2018 Hospital day # : 3 Physician author: Tyler Mabry MD Today: 03/11/2018 Allergies: Allergies Allergen Reactions Tramadol Caused spasms and pt to be in hospital Current Medications: Current Facility-Administered Medications Medication Dose Route Frequency Provider Last Rate Last Dose acetaminophen (TYLENOL) tablet 650 mg 650 mg Oral Q4H PRN Boni Sanchez MD 650 mg at 03/09/182033 allopurinol (ZYLOPRIM) tablet 300 mg 300 mg Oral Daily Boni Sanchez MD 300 mg at 03/11/18806 aspirin EC tablet 325 mg 325 mg Oral Daily Boni Sanchez MD 325 mg at 03/11/18 08 07 atorvaSTATin (LIPITOR) tablet 40 mg 40 mg Oral Nightly Boni Sanchez MD 40 mg at 03/10/182035 atropine 0.4 mg/mL injection 0.4 mg 0.4 mg Intravenous Q5 Min PRN Boni Sanchez MD 0.4 mg at 03/08/18 174 docusate sodium (COLACE) capsule 100 mg 100 mg Oral BID PRN Boni Sanchez MD heparin 5,000 units/mL injection 5,000 Units 5,000 Units Subcutaneous 2 times per day Boni Sanchez MD 5,000 Units at 03/11/18806 levothyroxine (SYNTHROID) tablet 88 mcg 88 mcg Oral QAM AC Boni Sanchez MD 88 mc g at 03/11/18 0639 lisinopril (PRINIVIL, ZESTRIL) tablet 20 mg 20 mg Oral BID Hans Blanco MD 20 m g at 03/11/18806 melatonin tablet 3 mg 3 mg Oral Nightly PRN Corky Freedman MD 3 mg at 03/09/182033 ondansetron (ZOFRAN) injection 4 mg 4 mg [...] ABG No results for input(s): PHART, PO2ART, TDM1TWP, BDN5NLJ, BEART, [id number] in the last 168 h ours. No results for input(s): SPECSOURCE, PHPOCB, PCO2, PO2, HCO3, TCO2, BEART, [id number] in the last 168 hours. Drug of [...] dot micro, for reference below is dot [id number] URSR Microbiology Results (72 hrs) Procedure Component Value Units Date/Time Culture, MRSA [[id number]] (Normal) Collected: 03/08/18 1833 Order Status: Completed [...] room air at flow rate 0L/min (dot meyvent) Subjective CC admitted with symptomatic bradycardia and [...] meycritical meysign) Tyler Mabry MD 03/11/2018 9:17 [facility] Reference. This is NOT part of the patient's formal assessment section. In the assessment or plan section of notes the author may date some of the subsections with a number such as "" or "" to indicate the date of that entry [...] this chart may have been created with [employer] voice recognition software. Occasi onal wrong-word or [...] is in a c lass I of [employer] functional class. There is chronic [...] made to ensure accuracy; however, inadvertent computerized adjunct trainer errors may be pre sent. Electronically signed by: Hans Blanco MD 03/11/2018 6:36 HENParreji, Alli Almanza MD - 03/10/2018 8:06 AM PDTForm atting of this note might be different from the original. [facility] Hospitalist Progress Note Wilmer Pinon is a 82 y.o. male ASSESSMENT and PLAN: Active Hospital Problems Syncope Patient with long-standing use of carvedilol. In 1990 he underwent coronary bypass graftin g and his family reports this was associated [...] as outlined above. Alli Olson 03/10/2018 8:07 [facility] Portions of this chart may have been created with [employer] voice recognition software. Occasi onal wrong-word or sound-alike substitutions may have occurred due to the inherent clements itations of voice recognition software. Please read the chart carefully and recognize, using context, where these substitutions have occurred lli Olson MD - 0 03/09/2018 9:47 AM PDT [facility] Hospitalist Progress Note Wilmer Pinon is [...] as outlined above. Alli Olson 03/09/2018 9:47 [facility] Portions of this chart may have been created with [employer] voice recognition software. Occasi onal wrong-word or sound-alike substitutions may have occurred due to the inherent clements itations of voice recognition software. Please read the chart carefully and recognize, using context, where these substitutions have occurred documented in this enc ounter H&P Notes Boni Sanchez MD - 03/08/2018 5:23 PM PDTFormatting of this note might be different fr om the original. [facility] [place] HOSPITALIST HISTORY & PHYSICAL Patient: Wilmer Pinon : 1935: Age: 82 y.o. MedRec: [id number] Admission date: 03/08/2018 Hospital day # : 0 Physician author: Boni Sanchez MD Today: 03/08/2018 CHIEF COMPLAINT: Syncope HISTORY OF PRESENT ILLNESS: This is a 82 y.o. 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 Patient was else lodge while sitting down. Patient reports feeling lightheadedness with diaphoresis. Patient had syncopal episode note d to have head back with no injury. was next to him and noted patient had episodes for several seconds. Patient awoke and able to answer questions. Denies post ictal symptoms, chest pain, heart palpitations. No recent fever or chills. Patient had recent similar epis ode one week ago while lying in bed. Patient reports taking carvedilol 25 mg in the morning . Patient recommended to take twice daily but instead patient was taking 2 tablets while in the morning. Patient denies nausea/vomiting/diarrhea, abdominal pain. No shortness of breath Patient presented in the emergency department and was found to have heart rate in 40s. PAST MEDICAL and SURGICAL HISTORY: History reviewed. No pertinent past medical history. Past Surgical History: Procedure Laterality Date BACK SURGERY CHOLECYSTECTOMY CORONARY ARTERY BYPASS GRAFT 1990 FAMILY HISTORY: No pertinent family history SOCIAL HISTORY: patient lives with REVIEW OF SYSTEMS: Review of Systems Constitutional: Negative. HENT: Negative. Eyes: Negative. Respiratory: Negative. Cardiovascular: Negative. Genitourinary: Negative. Musculoskeletal: Negative. Skin: Negative. Neurological: Positive for loss of consciousness. Negative for dizziness, tingling, tremors , sensory change and headaches. Endo/Heme/Allergies: Negative. Psychiatric/Behavioral: Negative. HOME MEDICATIONS: PT REPORTED TAKING NOT TAKING Medication Sig Last Dose Dispense Doc. Provider levothyroxine (SYNTHROID) 88 mcg tablet Take 88 mcg by mouth every morning (before break). Historical Provider, mirabegron (MYRBETRIQ) 25 mg ER tablet Take 25 mg by mouth Daily. Historical Provider, Monae Fischer rOPINIRole (REQUIP) 0.25 mg tablet Take 0.25 mg by mouth nightly. Historical Provider, Monae Fischer ALLERGIES: No Known Allergies VITAL SIGNS: Temp: 36.1 C (97 F), Pulse: (!) 49, Resp: 14, BP: 131/69, SpO2 (!) 88 % on room air at flow rate L/min Temp Min: 36.1 C (97 F) Max: 36.1 C (97 F) Weight: 92.4 kg (203 lb 11.3 oz) PHYSICAL EXAMINATION: Constitutional NAD Eye No conjunctivitis nor scleral icterus ENT Unremarkable oral ear and nose Neck No adenopathy, thyromegaly nor masses Lymph node exam Negative in the following areas: neck and epitrochlear Cardiac S1, S2 present, bradycardic Lung + CTA throughout Abdomen + BS, Soft, NT, no HSM nor masses Extremities No b/l LE edema Psych Mood and affect normal Neuro No focal deficit, 5/5 strength throughout, sensation intact, CN II-XII intact DIAGNOSTIC STUDIES: Lab results last 24 hours Recent Results (from the past 24 hour(s)) POC Glucose Collection Time: 03/08/18 13:59 Result Value Ref Range Glucose, POC 140 (H) 70 - 109 mg/dL Extra Lavender Top Tube Collection Time: 03/08/18 14:05 Result Value Ref Range Extra Lavender Top Tube Done Extra Green Top Tube Collection Time: 03/08/18 14:05 Result Value Ref Range Extra Green Top Tube Done Extra Green Top Tube Collection Time: 03/08/18 14:05 Result Value Ref Range Extra Green Top Tube Done Extra Lavender Top Tube Collection Time: 03/08/18 14:05 Result Value Ref Range Extra Lavender Top Tube Done Extra Blue Top Tube Collection Time: 03/08/18 14:05 Result Value Ref Range Extra Blue Top Tube Done Extra Gold Top Tube Collection Time: 03/08/18 14:05 Result Value Ref Range EGDT Done CBC with Differential Collection Time: 03/08/18 14:05 Result Value Ref Range WBC 7.4 4.0 - 11.0 K/uL RBC 3.79 (L) 4.30 - 5.70 M/uL Hgb 13.0 (L) 13.5 - 18.0 g/dL Hct 38.1 (L) 40.0 - 51.0 % MCV 100.5 83.0 - 101.0 fL MCH 34.3 28.0 - 35.0 pg MCHC 34.1 32.0 - 36.0 g/dL RDW-CV 13.5 <15.0 % RDW-SD 49.9 (H) 35.1 - 46.3 fL Platelet Count 240 140 - 440 K/uL MPV 10.6 6.5 - 12.4 fL % Neutrophils 58.6 45.0 - 82.0 % % Lymphocytes 23.1 20.0 - 45.0 % % Monocytes 10.4 4.0 - 12.0 % % Eosinophils 6.6 (H) 0.0 - 5.0 % % Basophils 0.9 0.0 - 1.0 % % Immature granulocytes 0.4 0.0 - 0.4 % Absolute Neutrophils 4.33 1.80 - 8.50 K/uL Absolute Lymphocytes 1.71 0.60 - 3.20 K/uL Absolute Monocytes 0.77 0.00 - 1.00 K/uL Absolute Eosinophils 0.49 (H) 0.00 - 0.40 K/uL Absolute Basophils 0.07 0.00 - 0.10 K/uL Absolute Imm. Granulocytes 0.03 0.00 - 0.03 K/uL nRBC 0 0 - 2 per 100 WBC's NRBC ABS 0.00 0.00 - 0.01 K/uL Comprehensive Metabolic Panel Collection Time: 03/08/18 14:05 Result Value Ref Range NA 138 136 - 149 mmol/L K 3.9 3.5 - 5.1 mmol/L CL 105 98 - 109 mmol/L CO2 26 24 - 31 mmol/L ANION GAP 7 3 - 16 mmol/L GLUCOSE 138 (H) 70 - 109 mg/dL BUN 20 (H) 7 - 18 mg/dL Creatinine, Serum/Plasma 1.56 (H) 0.60 - 1.30 mg/dL eGFR if not 43 (L) >=60 mL/min/1.73m2 CALCIUM 9.1 8.3 - 10.5 mg/dL ALBUMIN 3.3 3.2 - 5.0 g/dL Bilirubin Total 0.9 0.1 - 1.5 mg/dL Total protein 5.7 (L) 6.0 - 7.8 g/dL AST 20 10 - 42 U/L ALT 12 6 - 45 U/L ALK PHOS 50 40 - 110 U/L GLOBULIN 2.4 2.1 - 3.8 g/dL Albumin/Globulin ratio 1.4 0.8 - 2.0 BUN/CREA 12.8 Troponin I Collection Time: 03/08/18 14:05 Result Value Ref Range Troponin I 0.01 <0.06 ng/mL B Type Natriuretic Peptide Collection Time: 03/08/18 14:05 Result Value Ref Range BNP 166 (H) <100 pg/mL Micro results Microbiology Results (72 hrs) No results found for the last 72 hours. Radiology results Xr Chest Ap Portable Result Date: 03/08/2018 [...] MD Electronically signed: 03/08/2018 3:11 P M I reviewed imaging EKG Results (I reviewed EKG) I reviewed and summarized old records ASSESSMENT: Principal Problem: Symptomatic bradycardia/syncope Code Status No code Medical Decision Maker Self DVT Prophylaxis Lovenox PLAN: Syncope likely 2/2 to Symptomatic bradycardia No leukocytosis. Troponin negative 1. BNP 166. Heart rate in 40s 1 emergency departmen t. Patient reports taking double dose of carvedilol in morning. Records were able to be re trieved from Ezio from PCP clinic. Patient documented to be taking carvedilol 25 mg. E KG with 1st degree heart block, RBBB, TWI V1-V3, III, AVF -Consider glucagon if symptomatic -Atropine ordered at bedside -Telemetry -Pacer pads ordered -Hold carvedilol -Ordered serial trops -Ordered TTE -TSH ordered MAICOL vs CKD Cr 1.56 -Ordered UA -Ordered urine lytes -Trend Cr -On IVFs CAD s/p CABG -Cont ASA -Started atorvastatin CVA with RUE residual weakness (not seen on exam), recent TIA 01/25 -Cont ASA, started atorvastatin ?Chronic systolic heart failure -Hold lasix -Hold carvedilol HTN -Hold HCTZ, carvedilol FEN: Card PPX: Lovenox [facility] Documentation I expect this patient will be hospitalized for greater than 2-midnights and expect the post -hospital plan to be discharge to home or to an adult foster home. Electronically signed by: Boni Sanchez MD 03/08/2018 17:23 [facility] documented in this e ncounter Consult Notes Hans Blanco MD - 03/10/2018 11:03 AM PDTFormatting of this note might be different f rom the original. PATIENT NAME: Wilmer Pinon : 1935: AGE: 82 y.o. ADMISSION DATE: 03/08/2018 HOSPITAL DAY NUMBER: [id number] PRIMARY CARE: Osbaldo Wood MD REFERRING PROVIDER: Alli Olson M.D. CONSULTING PROVIDER: Hans Blanco MD CARDIOLOGY CONSULTATION DATE OF CONSULTATION: 03/10/18 REASON FOR CONSULT: Bradycardia HISTORY OF PRESENT ILLNESS: Wilmer Pinon is a 82 y.o. male with a history of hypertension. He was admitted to [facility] on 03/08/2018 for <principal problem not specified>. He was in his usual state of health until 03/08/2018 he was [facility] and w hile sitting down he passed out. He was then admitted to hospital with profound bradycardia and his carvedilol was put on hold. In the past 36 hours, patient continues to have bradyca rdia with evidence of nonconducted P waves, nocturnal heart rate in the mid 40's. Today, patient denies any cardiac symptoms. He walks around ICU this morning and offered n o cardiac symptoms. He said his feeling good Patient , at home , is physically inactive. H e enjoys reading. There is no chest pain or chest discomfort both at rest and on exertion. Patient denies breathlessness. There is no palpitations, dizziness or lightheadedness. There is no ankle or leg swelling. Patient can sleep on one pillow at night without difficulty br eathing. 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 No pertinent family history. SOCIAL HISTORY Social History Social History Marital status: Spouse name: N/A Number of children: N/A Years of education: N/A Occupational History Not on file. Social History Main Topics Smoking status: Never Smoker Smokeless tobacco: Never Used Alcohol use No Drug use: Unknown Sexual activity: Not on file Other Topics Concern Not on file Social History Narrative No narrative on file OUTPATIENT MEDICATIONS Prescriptions Prior to Admission Medication Sig Dispense Refill allopurinol (ZYLOPRIM) 300 mg tablet Take 300 mg by mouth Daily. aspirin 325 mg EC tablet Take 325 mg by mouth Daily. B Complex Vitamins (B COMPLEX 1 PO) Take 1 tablet by mouth Daily. carvedilol (COREG) 25 mg tablet Take 25 mg by mouth 2 times daily (with breakfast & din ner). Cetirizine HCl (KLS ALLER-BENITO PO) Take by mouth Daily. furosemide (LASIX) 40 mg tablet Take 40 mg by mouth as needed for Edema. isosorbide mononitrate (IMDUR) 30 mg ER tablet Take 30 mg by mouth Daily. BID 2 pills i n am and 1 pill at night levothyroxine (SYNTHROID) 88 mcg tablet Take 88 mcg by mouth every morning (before nick kfast). mirabegron (MYRBETRIQ) 25 mg ER tablet Take 25 mg by mouth Daily. nitroglycerin (NITROSTAT) 0.[address] 0.4 mg under the tongue every 5 minute s as needed for Chest pain. omeprazole (PRILOSEC) 40 MG capsule Take 40 mg by mouth every morning (before breakfast ). potassium chloride (KLOR-CON) 10 MEQ ER tablet Take 10 mEq by mouth Daily. rOPINIRole (REQUIP) 0.25 mg tablet Take 0.25 mg by mouth nightly. CURRENT SCHEDULED MEDS: allopurinol 300 mg Oral Daily aspirin 325 mg Oral Daily atorvaSTATin 40 mg Oral Nightly heparin 5,000 Units Subcutaneous 2 times per day levothyroxine 88 mcg Oral QAM AC lisinopril 10 mg Oral BID pantoprazole 40 mg Oral QAM AC IV INFUSIONS: ALLERGIES Allergies Allergen Reactions Tramadol Caused spasms and pt to be in hospital REVIEW OF SYSTEMS Constitutional: Denies fever, chills, fatigue, weight loss, sudden weight gain. Eyes: Denies double vision, sudden vision loss. Ears/Nose/Throat: Denies tinnitus, decreased hearing, nosebleeds. Cardiovascular: Denies chest pains, palpitations, syncope, presyncope, dizziness, orthopnea , PND, peripheral edema. Respiratory: Denies cough, dyspnea [...] polydipsia, polyuria. PHYSICAL EXAM Latest VS: BP 174/76 | Pulse 55 | Temp 36 C (96.8 F) (Oral) | Resp 14 | Ht 1.854 m (6' 1") | Wt 87.5 kg (192 lb 12.7 oz) | SpO2 97% | BMI 25.44 kg/m Vital sign ranges for last 24hrs: Input and output for last 24hrs: Temp: [35.5 C (95.9 F)-36 C (96.8 F)] 36 C (96.8 F) Pulse: [53-61] 55 Resp: [14-21] 14 BP: (163-184)/(76-90) 174/76 SpO2 Av.7 % Min: 95 % Max: 98 % Flow (L/min) Av Min: 0 Max: 0 03/08 1901 - 03/10 0700 In: 1571 [P.O.:320; I.V.:1151] Out: 3075 [Urine:3075] Body mass index is 25.44 kg/m.; Body surface area is 2.12 meters squared. Constitutional General appearance: Male individual well developed, well nourished, well groomed, no ac summer distress Cardiovascular NYHA Class: I- No symptoms; no limitations of activities Palp/Percussion: PMI in 5th ICS at MCL; no lifts, thrills, palp S3 or S4. Auscultation: normal S1 S2; no gallop or rub or click Murmur: Grade 2/6 systolic ejection murmur along the right sternal border. Carotid arteries: pulses 2+, symmetric, no bruits [...] no visible rashes, lesions, or ulcerations LABS Recent Results (from the past 24 hour(s)) ECHO Complete Collection Time: 03/09/18 11:35 Result Value Ref Range BASELINE BLOOD PRESSURE 159/76 mmHg Patient Weight (lbs) 165 lbs Patient Height 73 in LVIDd 5.48 cm FS 35 % LA volume 46.67 mL Ascending aorta 3.42 cm MV Area by P 1/2 method 2.16 cm2 IVRT 99.45 msec MV peak gradient 4.97 mmHg MV Pressure 1/2 time 101.8 msec LA Volume Index 24 mL/m2 LV Diastolic Length 4C 8 cm LV Systolic Area PSAX 16.27 cm2 RV Diastolic Basal Diameter 2.96 cm LV Barron's Biplane EF 64 % LV ED Volume (Barron's) 107.96 ml LV ED Volume Index 55 ml/m2 LV ES Volume 38.74 ml MV E' Lateral Velocity 7.14 cm/s MV E' Septal Velocity 6.75 cm/s MV Deceleration [place] 330.06 cm/s2 MV Deceleration Time 351.05 msec MV E/A Ratio 1.08 MV Peak A-Wave 103.64 cm/s MV Peak E-Wave 111.47 cm/s RA Area 15.32 cm2 LA/Aorta Ratio 1.28 LA Area 18.4 cm2 LA Systolic Pressure 21.52 mmHg MV E/E SEPTAL 16.51 MV E/E LATERAL 15.61 LV ES Volume Index 20 ml/m2 LV Area Diastolic 32.48 cm2 Heart Rate 54 Aortic Root Diameter 3.88 cm IVS Diastolic Thickness MM 1.03 cm LVPW Diastolic Thickness MM 1.03 cm IVS Systolic Thickness MM 1.74 cm LV Systolic Diameter MM 3.56 cm LVPW Systolic Thickness MM 1.49 cm AV Cusp Seperation MM 1.81 cm LA Systolic Diameter MM 4.98 cm TAPSE 1.9 cm LVEF-TTE TRANSTHORACIC ECHO 65 % Magnesium Collection Time: 03/09/18 14:21 Result Value Ref Range Magnesium 2.3 1.8 - 2.5 mg/dL CBC no Differential Collection Time: 03/10/18 3:53 Result Value Ref Range WBC 7.8 4.0 - 11.0 K/uL RBC 4.09 (L) 4.30 - 5.70 M/uL Hgb 14.1 13.5 - 18.0 g/dL Hct 40.3 40.0 - 51.0 % MCV 98.5 83.0 - 101.0 fL MCH 34.5 28.0 - 35.0 pg MCHC 35.0 32.0 - 36.0 g/dL RDW-CV 13.3 <15.0 % RDW-SD 48.0 (H) 35.1 - 46.3 fL Platelet Count 244 140 - 440 K/uL MPV 10.6 6.5 - 12.4 fL nRBC 0 0 - 2 per 100 WBC's NRBC ABS 0.00 0.00 - 0.01 K/uL Basic Metabolic Panel Collection Time: 03/10/18 3:53 Result Value Ref Range NA 137 136 - 149 mmol/L K 3.6 3.5 - 5.1 mmol/L CL 105 98 - 109 mmol/L CO2 23 (L) 24 - 31 mmol/L ANION GAP 9 3 - 16 mmol/L GLUCOSE 98 70 - 109 mg/dL BUN 14 7 - 18 mg/dL Creatinine, Serum/Plasma 1.27 0.60 - 1.30 mg/dL eGFR if not 54 (L) >=60 mL/min/1.73m2 CALCIUM 9.5 8.3 - 10.5 mg/dL BUN/CREA 11.0 Hemoglobin A1C Collection Time: 03/10/18 3:53 Result Value Ref Range Hemoglobin A1c 5.8 4.3 - 6.0 % Estimated Average Glucose 120 mg/dL Urinalysis, Microscopic Only, with Culture if Indicated [...] mg/dL PRO/CREA RATIO,URINE 5.97 (H) <0.20 mg/mg IMAGING Xr Chest Ap Portable Result Date: 03/08/2018 [...] MD Electronically signed: 03/08/2018 3:11 P M ECG: Sinus bradycardia, heart rate 50 beats per minutes, complete right bundle-branch bloc k. ASSESSMENT: 1. Bradycardia, reversible, asymptomatic A. Echocardiogram 03/09/2018 shows mild left atrial dilatation, normal left ventricular siz e, wall thickness and motion, preserved left ventricular systolic function, LVEF is 60-65%, grade 2 left ventricular diastolic dysfunction, mildly thickened and calcified mitral valve with a mild central mitral valve regurgitation, mildly thickening calcified trileaflet aorti c valve with adequate opening, there is aortic valve sclerosis without significant aortic va lve stenosis, mild aortic root dilatation measuring 3.9 cm in diameter, normal right-sided p ressure, not well-visualized IVC B. He was in his usual state of health until 03/08/2018 he was at a memorial for a friend a nd while sitting down he passed out. He was then admitted to hospital with profound bradycar maría and his carvedilol was put on hold. In the past 36 hours, patient continues to have bra dycardia with evidence of nonconducted P waves, nocturnal heart rate in the mid 40's. Today, patient denies any cardiac symptoms. He walks around ICU this morning and offered no cardiac symptoms. He said his feeling good Patient , at home , is physically inactive. He enjoys reading. There is no chest pain or chest discomfort both at rest and on exertion. There is no signs and symptoms of overt congestive heart failure. He is in a class I of N ew [place] Heart Association functional class. There is chronic venous stasis on physical exam ination. Initial blood work including CBC, metabolic and TSH revealed only borderline kidney failur e. 2. Coronary artery disease A. CAGB 1990. B. He denies any chest pain. 3. Hypertension A. Blood pressure today is slightly elevated carvedilol. He was put on lisinopril for now . 4. Stage III chronic kidney disease A. eGFR is 54 from 03/10/2018 5. Inactivity 6. Hyperlipidemia A. on Lipitor 40 mg a day. PLAN: 1. I spend time at length talking about natural course, treatment and prognosis of asympto matic reversible bradycardia. 2. Permanent pacemaker implantation is not indicated at this time. 3. Follow-up in 2-4 weeks in my office with 48 hour Holter monitor Thank you for including me in the care of this patient. Electronically signed by: Hans Blanco MD [facility] 03/10/2018 11:03 Portions of this chart may have been created with [employer] voice recognition software. Occasi onal wrong-word or sound-alike substitutions may have occurred due to the inherent clements itations of voice recognition software. Please read the chart carefully and recognize, using context, where these substitutions have occurred. documented in this encounter ED Notes Deandre Rocha, - 03/08/2018 2:30 PM PDTFormatting of this note might be differ ent from the original. Emergency Provider Note 03/08/2018 History CC: Syncope HPI: Wilmer Pinon is a 82 y.o. male who presents to the ED for evaluation of syncope. Pt had witnessed syncopal episode earlier today while seated. Pt reports he felt a little nauseous and then like he was "going to pass out". He fainted in the chair. This happened one other time less than a week ago while he was lying down. He felt weak, and nauseated and then pass ed out. He denies any associated cp, sob, fevers or chills. Witnesses reported he was very p renzo and diaphoretic when this happened. PMH: History reviewed. No pertinent past medical history. PSH: Past Surgical History: Procedure Laterality Date BACK SURGERY CHOLECYSTECTOMY CORONARY ARTERY BYPASS GRAFT 1990 Medications: Current Discharge Medication List CONTINUE these medications which have NOT CHANGED Details levothyroxine (SYNTHROID) 88 mcg tablet Take 88 mcg by mouth every morning (before breakfas t). mirabegron (MYRBETRIQ) 25 mg ER tablet Take 25 mg by mouth Daily. rOPINIRole (REQUIP) 0.25 mg tablet Take 0.25 mg by mouth nightly. Allergies: He has No Known Allergies.. Social History: He . Review of Systems Constitutional: Positive for diaphoresis. Negative for chills and fever. HENT: Negative for congestion. Eyes: Negative for visual disturbance. Respiratory: Negative for chest tightness and shortness of breath. Cardiovascular: Negative for chest pain and leg swelling. Gastrointestinal: Positive for nausea. Negative for abdominal pain, diarrhea and vomiting. Genitourinary: Negative for dysuria and hematuria. Musculoskeletal: Negative for arthralgias and myalgias. Skin: Positive for pallor. Negative for rash. Neurological: Positive for syncope. Negative for weakness and headaches. Psychiatric/Behavioral: Negative for behavioral problems. Physical Exam Vital Signs: Temp: 36.1 C (97 F) Pulse: 52 Resp: 14 BP: 130/75 SpO2: 95 % Physical Exam Constitutional: He is oriented to person, place, and time. He appears well-developed and we ll-nourished. No distress. HENT: Head: Normocephalic and atraumatic. Nose: Nose normal. Eyes: Pupils are equal, round, and reactive to light. EOM are normal. Neck: Normal range of motion. Neck supple. Cardiovascular: Regular rhythm and intact distal pulses. Bradycardia present. No murmur heard. Pulmonary/Chest: Effort normal and breath sounds normal. No respiratory distress. Abdominal: Soft. He exhibits no distension. There is no tenderness. There is no rebound. Musculoskeletal: Normal range of motion. He exhibits no edema or deformity. Neurological: He is alert and oriented to person, place, and time. Skin: Skin is warm and dry. No rash noted. Psychiatric: His behavior is normal. Nursing note and vitals reviewed. ED Course and Medical Decision Making Wilmer Pinon presented to the Emergency Department for evaluation, and he was triaged to [place] [address]. I reviewed the nursing notes, and he was evaluated by me. IMPRESSION 1. Syncope, unspecified syncope type 2. 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, unspecified CKD stage, unspe cified acute renal failure type (HCC) Medical Decision Making as of Mar 08 1851 Sat Mar 08, 2018 1426 50, sinus bradycardia with first-degree AV block, RBBB, T-wave inversions in leads III and V1-V3 ECG 12 lead 1516 No acute findings. Borderline cardiomegaly. XR Chest AP Portable 1517 BUN: (!) 20 1518 Creatinine: (!) 1.56 1518 EGFR IF NOT : (!) 43 1518 MAICOL vs CKD no previous records for comparison 1518 Troponin I: 0.01 1519 B-TYPE NATRIURETIC PEPTIDE: (!) 166 1520 Patient's lab work is fairly unremarkable. However, his presentation and comorbiditie s are concerning. I believe he would be best served by close observation and serial labs. Patient was placed in the hospital service. He was stable for the duration of his visit in the ED. Deandre Rocha DO 03/08/18 1851 cNeil, Juliana Waters RN - 03/08/2018 1:56 PM PDTWitnessed syncope [facility] [place]. Denies CP, SOB or nausea. Pt was pale and diaphoretic upon arrival at [facility]. Hx 3 vessel bypass in 1990 documented in this encounter Miscellaneous Notes Plan of Care - Angela Ro RN - 03/11/2018 10:14 AM PDTProblem: Patient Care Overview (Adult) Goal: Care Team Goals & Evaluation PROBLEM-RELATED GOALS: 1. Wilmer will have a HR >50 by 03/10/18. 2. Wilmer will not have any syncopal episodes by 03/10/18. 3. Wilmer will be free of injuries by 03/10/18. 4. Wilmer will tolerate ambulating in the halls without dizziness or syncopal episodes. STRATEGY TO ACHIEVE GOALS: 1. Pt will receive appropriate medication interventions to promote and prevent symptomatic bradycardia. 2. Pt will be assessed for syncopal episodes throughout his stay. 3. Pt will be encouraged to call for help when needed. 4. Ambulate in [place] with his cane. Stop and let him rest if sx happen. Gradually increase d istance as he tolerates. Outcome: Adequate for Discharge Date Met: 03/11/18 Goal Evaluation: DC instructions given. Spouse Rhona here to hop picker pt and instruc tions given to her. No questions or concerns. Pt has denied pain. lan of [facility] - Carolina Damon RN - 03/10/2018 6:13 PM PDTProblem: Patient Care Overview (Adult) Goal: Care Team Goals & Evaluation PROBLEM-RELATED GOALS: 1. Wilmer will have a HR >50 by 03/10/18. 2. Wilmer will not have any syncopal episodes by 03/10/18. 3. Wilmer will be free of injuries by 03/10/18. 4. Wilmer will tolerate ambulating in the halls without dizziness or syncopal episodes. STRATEGY TO ACHIEVE GOALS: 1. Pt will receive appropriate medication interventions to promote and prevent symptomatic bradycardia. 2. Pt will be assessed for syncopal episodes throughout his stay. 3. Pt will be encouraged to call for help when needed. 4. Ambulate in [place] with his cane. Stop and let him rest if sx happen. Gradually increase d istance as he tolerates. Outcome: Unchanged Goal Evaluation: Jorge has been up in the chair today, showered and walked in the [place] x 3. No sx of dizziness or lightheadedness when walking in the [place]. Had one brief episode on way back from the bathroom approx 1400. ECG reviewed, no bradycardia less than 50 bpm an d no non conducted pac's around the time of the episode. Jorge has had no falls or injuries to day. eICU Note - Gui Damon RN - 03/10/2018 2:00 PM PDTPt reported a dizzy/lightheaded episode on the way back from the bathroom. It went away when he sat down. ECG reviewed and no heart rates below 50 noted and no PVC's or non-conducted PAC's noted. lan of Maynor Redd RN - 03/10/2018 2:26 AM PDTProblem: Patient Care Overview (Adult) Goal: Care Team Goals & Evaluation PROBLEM-RELATED GOALS: 1. Wilmer will have a HR >50 by 03/10/18. 2. Wilmer will not have any syncopal episodes by 03/10/18. 3. Wilmer will be free of injuries by 03/10/18. STRATEGY TO ACHIEVE GOALS: 1. Pt will receive appropriate medication interventions to promote and prevent symptomatic bradycardia. 2. Pt will be assessed for syncopal episodes throughout his stay. 3. Pt will be encouraged to call for help when needed. Outcome: Improving Goal Evaluation: Jorge A&Ox4, VSS, HR 50s-70s, SBPs 160s-170s, no need to treat per Dr Yuli Olson. Pt complaining of L. Shoulder pain, tylenol given x1. Pt sleeping off and on, NPO since midnight for possible pacer placement. Pt calling appropriately, will continue to [facility]. Maynor Carrillo, RN 03/10/2018 lan of [facility]ely Arlene, samira Messer RN - 03/09/2018 6:07 PM PDTProblem: Patient Care Overview (Adult) Goal: Care Team Goals & Evaluation PROBLEM-RELATED GOALS: 1. Wilmer will have a HR >50 by 03/10/18. 2. Wilmer will not have any syncopal episodes by 03/10/18. 3. Wilmer will be free of injuries by 03/10/18. STRATEGY TO ACHIEVE GOALS: 1. Pt will receive appropriate medication interventions to promote and prevent symptomatic bradycardia. 2. Pt will be assessed for syncopal episodes throughout his stay. 3. Pt will be encouraged to call for help when needed. Outcome: Improving Goal Evaluation: Jorge's VSS, bradycardic in 50's throughout shift. No c/o pain. Lungs CTA, denies SOB. A/O x4 , speech is clear and able to ask for assistance appropriately. SBA with walker for transfer s and ambulation, walked in hallways this afternoon and tolerated well, slight lightheadedne ss reported when looking down while walking only, HR in the 50-60s. MD in to talk with famil y and pt today, pt eager to return home. lan of [facility] Ashley Moreno, [facility] - 03/09/2018 12:52 PM PDTDischarge Planning Goal: Pt to be discharged in a safe manner Summary /Intervention: Met with patient and his , Rhona to discuss potential discharge needs. Wilmer is sitti ng up in bed, he is alert, oriented, presents as pleasant and engaging. States he wants to go home, "feels better". Wilmer resides in [place] in multi level home, 6 steps to entry and another 6 steps up to living area Wilmer states he is independent with ambulation, uses a single point cane. Confirmed PCP to be Dr Wood Preferred pharmacy is [facility] in [place] Plan: Anticipate return home with spouse support Electronically signed by: JELANI Wells 03/09/2018 12:52 lan of Care - Maynor Nolasco RN - 03/09/2018 2:05 AM PDTProblem: Patient Care Overview (Adult) Goal: Care Team Goals & Evaluation PROBLEM-RELATED GOALS: 1. Wilmer will have a HR >50 by 03/10/18. 2. Wilmer will not have any syncopal episodes by 03/10/18. 3. Wilmer will be free of injuries by 03/10/18. STRATEGY TO ACHIEVE GOALS: 1. Pt will receive appropriate medication interventions to promote and prevent symptomatic bradycardia. 2. Pt will be assessed for syncopal episodes throughout his stay. 3. Pt will be encouraged to call for help when needed. Outcome: Improving Goal Evaluation: Wilmer is A&Ox4, VSS, HR 40s-60s and has been asymptomatic, Atropine at the patients bedside. Pt calling appropriately and following commands. Wilmer appears com fortable, Q1hr rounding performed to minimize the possibility of injuries. Maynor Carrillo RN 03/09/2018 documented in this encou nter Plan of Treatment +--------+---------+ + + + | Date | Type | Specialty | Care Team | Description | +--------+---------+ + + + | 01/20/ | Office | Cardiology | Hans Blanco, | | | 2019 | Visit | | MD [address] | | | | | | [place], | | | | | | [place] [address] | | | | | | [phone] | | | | | | | | +--------+---------+ + + + | 02/25/ | Office | Cardiology | FrancisHans, | | | 2019 | Visit | | MD [address] | | | | | | [place], | | | | | | [place] [address] | | | | | | [phone] | | | | | | | | +--------+---------+ + + + documented as of this encounter Procedures + +--------+ + + + | Procedure Name | Priori | Date/Time | Associated Diagnosis | Comments | | | ty | | | | + +--------+ + + + | EXTRA LAVENDER TOP | Routin | 03/11/2018 | | [...] [address] | [place] | [phone] | | [facility] | | [address] | | | - LABORATORY | | | | + + + + + Magnesium (03/11/2018 5:17 AM PDT) + +---------+ + + + | Component | Value | Ref Range | Performed | Pathologist | | | | | At | Signature | + +---------+ + + + | Magnesium | 1.7 (L) | 1.8 - 2.5 mg/dL | [facility] [...] [address] | [place] | [phone] | | [facility] | | [address] | | | - LABORATORY | | [...] 18 | 7 - 18 mg/dL | [facility] | | | | | | [facility] | | | | | | MEDICAL | | | | | | CENTER - | | | | | | LABORATORY | | + + + + + + | Creatinine | 1.29 | 0.60 - 1.30 | [facility] | | | | | mg/dL | [facility] | | | | | | MEDICAL | | | | | | CENTER - | | | | | | LABORATORY | | + + + + + + | eGFR if not | 53 (L)Comment: | >=60 | [facility] | | | | GLOMERULAR FILTRATION | mL/min/1.73m2 | [facility] | | | [place] | RATE,ESTIMATED | | MEDICAL | | | | mL/min/1.12l4Juyi than | | CENTER - | | [...] + | [facility] | [address] | [place] [facility] | [phone] | | [facility] | | [address] | | | - LABORATORY | | [...] | | Urine | | | [facility] | | [...] [address] | [place] | [phone] | | [facility] | | [address] | | | - LABORATORY | | [...] | | Cells, | | | [facility] | | | Urine | | [...] | + + + + + | [facility] | [address] | [place] | [phone] | | [facility] | | [address] | | | - LABORATORY | | [...] | | | A1c | | | [facility] | | | | | | MEDICAL | | | | | | CENTER - | | | | | | LABORATORY | | + +-------+ + + + | Estimated | 120 | mg/dL | [facility] | | | Average | | | [facility] | | | Glucose | | | [...] ST. | [address] | [place] | [phone] | | [facility] | | [address] | | | - LABORATORY | | [...] (L) | 24 - 31 mmol/L | [facility] [...] | 1.27 | 0.60 - 1.30 | [facility] | | | | | mg/dL | [facility] | | | | | | MEDICAL | | | | | | CENTER - | | | | | | LABORATORY | | + + + + + + | eGFR if not | 54 (L)Comment: | >=60 | [facility] | | | | GLOMERULAR FILTRATION | mL/min/1.73m2 | [facility] | | | [place] | RATE,ESTIMATED | | MEDICAL | | | | mL/min/1.92u7Dwtb than | | CENTER - | | [...] | 9.5 | 8.3 - 10.5 | [facility] | | | | | mg/dL | [facility] | | | | [...] [address] | [place] | [phone] | | [facility] | | [address] | | | - LABORATORY | | | | + + + + + CBC no Differential (03/10/2018 3:53 AM PDT) + + + + + + | Component | Value | Ref Range | Performed | Pathologist | | | | | At | Signature | + + + + + + | White Blood | 7.8 | 4.0 - 11.0 K/uL | [facility] | | | Cells | | | [facility] | | | | | | MEDICAL | | | | | | CENTER - | | | | | | LABORATORY | | + + + + + + | Red Blood | 4.09 (L) | 4.30 - 5.70 | [facility] | | | Cells | | M/uL | [facility] | | | | [...] [address] | [place] | [phone] | | [facility] | | [address] | | | - LABORATORY | | [...] [address] | [place] | [phone] | | [facility] | | [address] | | | - LABORATORY | | [...] | | | | | | n [place] | | | | | + +---------+ [...] (L) | 1.8 - 2.5 mg/dL | [facility] | | | | | | [facility] [...] [address] | [place] | [phone] | | [facility] | | [address] | | | - LABORATORY | | | | + + + + + CBC with Differential (03/09/2018 4:30 AM PDT) + + + + + + | Component | Value | Ref Range | Performed | Pathologist | | | | | At | Signature | + + + + + + | White Blood | 8.8 | 4.0 - 11.0 K/uL | [facility] | | | Cells | | | [facility] | | | | | | MEDICAL | | | | | | CENTER - | | | | | | LABORATORY | | + + + + + + | Red Blood | 3.48 (L) | 4.30 - 5.70 [...] [address] | [place] | [phone] | | [facility] | | [address] | | | - LABORATORY | | [...] [facility] | | | | | | [facility] [...] not | 53 (L)Comment: | >=60 | [facility] | | | | GLOMERULAR FILTRATION | mL/min/1.73m2 | [facility] | | | [place] | RATE,ESTIMATED | | MEDICAL | | | | mL/min/1.51w1Znkh than | | CENTER - | | [...] [address] | [place] | [phone] | | [facility] | | [address] | | | - LABORATORY | | [...] | | | | | | [employer] | | | | | [...] ST. | [address] | [place] | [phone] | | [facility] | | [address] | | | - LABORATORY | | [...] into the clinical context for interpretation. | [facility] | | | - LABORATORY | + + + + + + + + | Performing | Address | City/State/Zipcode | Phone Number | | Organization | | | | + + + + + | [facility] | [address] | [place] | [phone] | | [facility] | | [address] | | | - LABORATORY | | [...] [address] | [place] | [phone] | | [facility] | | [address] | | | - LABORATORY | | [...] + + + + | Clarity, | Cloudy (A) | Clear | [facility] | | | Urine | [...] - 1.030 | [facility] | | | [place], | | | [facility] | | [...] | [address] | [place] | [phone] | | [facility] | | [address] | | | - LABORATORY | | [...] | | | | | | [employer] | | | | | [...] ST. | [address] | [place], [place] | [phone] | | [facility] | | [address] | | | - LABORATORY | | [...] [address] | [place] | [phone] | | [facility] | | [address] | | | - LABORATORY | | [...] [address] | [place] | [phone] | | [facility] | | [address] | | | - LABORATORY | | | | + + + + + B Type Natriuretic Peptide (03/08/2018 2:05 PM PDT) + +---------+ + + + | Component | Value | Ref Range | Performed | Pathologist | | | | | At | Signature | + +---------+ + + + | BNP | 166 (H) | <100 pg/mL | [facility] | | | | | [...] [address] | [place] | [phone] | | [facility] | | [address] | | | - LABORATORY | | [...] | | | | | | [employer] | | | | | [...] | [facility] | [address] | [place] | [phone] | | [facility] | | [address] | | | - LABORATORY | | [...] (H) | 7 - 18 mg/dL | [facility] | | | [...] | | GLOMERULAR FILTRATION | mL/min/1.73m2 | [facility] | | | [place] | RATE,ESTIMATED | | MEDICAL | | | | mL/min/1.27g6Qayc than | | CENTER - | | [...] | 9.1 | 8.3 - 10.5 | [facility] | | | | | mg/dL | [facility] | | | | | | MEDICAL | | | | | | CENTER - | | | | | | LABORATORY | | + + + + + + | Albumin | 3.3 | 3.2 - 5.0 g/dL | [facility] | | | | | | [facility] | | | | [...] | | | Phosphatase | | | [facility] | | [...] + | BUN/Creatin | 12.8 | | [facility] | | | ine [...] [address] | [place] | [phone] | | [facility] | | [address] | | | - LABORATORY | | | | + + + + + CBC with Differential (03/08/2018 2:05 PM PDT) + + + + + + | Component | Value | Ref Range | Performed | Pathologist | | | | | At | Signature | + + + + + + | White Blood | 7.4 | 4.0 - 11.0 K/uL | [facility] | | | Cells | | | [facility] | | | | | | MEDICAL | | | | | | CENTER - | | | | | | LABORATORY | | + + + + + + | Red Blood | 3.79 (L) | 4.30 - 5.70 [...] + | [facility] | [address] | [place] | [phone] | | [facility] | | [address] | | | - LABORATORY | | [...] [address] | [place] | [phone] | | [facility] | | [address] | | | - LABORATORY | | [...] | Top Tube | | | [facility] | | [...] [address] | [place] | [phone] | | [facility] | | [address] | | | - LABORATORY | | [...] [address] | [place] | [phone] | | [facility] | | [address] | | | - LABORATORY | | [...] | | Top Tube | | | [facility] | | | [...] [address] | [place] | [phone] | | [facility] | | [address] | | | - LABORATORY | | [...] [address] | [place] | [phone] | | [facility] | | [address] | | | - LABORATORY | | | | + + + + + Extra Lavender Top Tube (03/08/2018 2:05 PM PDT) + +-------+ + + + | Component | Value | Ref Range | Performed | Pathologist | | | | | At | Signature | + +-------+ + + + | Extra | Done | | [facility] | | | Sharminender | | | [facility] | | [...] + + | [facility] | [address] | [place] | [phone] | | [facility] | | [address] | | | - LABORATORY | | [...] [address] | [place] | [phone] | | [facility] | | [address] | | | - LABORATORY | | [...] | | | | LAVELLE DUFFY MD ([id number]) | | | | | | on [...] PDT | | | | | Call yesi SIMMONS 1 at bedside, thank | | | [...] tablet 20 mg 20 mg, Oral, | | 18 8:07 | | | | | TIMES DAILY, First dose (after | | AM PDT | | | | | last modification) on Sat03/11/18 | | | | | | | [...] PDT | | | | | ONCE, [place] 03/09/18 at 0630, For 1 | | [...] PDT | | | | | ONCE, [place] 03/09/18 at 1000, For 1 | | [...]
--- OUTSIDE RECORDS SUMMARY | ~2020-01-03 | XMS | Encounter Summary ---
Demographics + + + | Address | [address] | | | [place] [address] | + + + | Home Phone | | + + + | Preferred Language | Unknown | + + + | Marital Status | | + + + | Faith Affiliation | 1077 | + + + | Race | Unknown | + + + | Ethnic Group | Unknown | + + + Author + + + | Author | [facility] | | | and [place] | + + + | Organization | [facility] | | [...] Team Providers + +------+ + | Care Pest Management Supervisor Name | Role | Phone | + +------+ + | David Yuan MD | PCP | | + +------+ + Reason for Visit +--------+--------+ + | Reason | Onset | Comments | | | Date | | +--------+--------+ + | Other | 12/13/ | | | | 2020 | | +--------+--------+ + Encounter Details +--------+ + + + + | Date | Type | Department | Care Team | Description | +--------+ + + + + | 12/13/ | Telephone | [facility] | Hans Blanco, | Other | | 2020 | | CARDIOLOGY [address] | MD [address] [place] | | | | | [place], | [place], | | | | | [place] [address] | [place] [address] | | | | | [phone] | [phone] | | | | | | | [...] Telephone Encounter - Anusha Damian RN - 12/16/2019 8:49 AM PDTMelanie notified at Dr Yuan that patient is to stay on 81 mg of aspirin .................................... ......Anusha Damian RN on 12/16/19 at 8:49 AM PDT elephone Encount Anusha Mercado RN - 12/15/2019 2:17 PM PDTRhona notified, will monitor chest pa in, will call if Ranexa does not help ..........................................Anusha Finch RN on 12/15/19 at 2:19 PM PDT elephone [facility] Anusha Mercado RN - 12/15/2019 1:57 PM PDTLeft message for Shania at primary care office to return call to notify her of the change with aspirin. Left message on voicemail message on patient's cell phone to return call .................. ........................Anusha Damian RN on 12/15/19 at 1:59 PM PDT elephone [facility] Hans Paulson MD - 12/15/2019 12:08 PM PDTContinue aspirin 81 mg a day because he has extensive history of CAD. Used to take Imdur 60 mg once a day. He was started on Ranexa which should help some chest pain. elephone Anusha Powers RN - 12/2019 12:04 PM PDTPatient's Rhona notified, She is concerned that patient is current ly taking isosorbide 30 mg 2 tablets twice a day and 3-4 nitroglycerin a day. I informed her that I would consult with Dr Escobar and return her call ..................................... .....Anusha Damian RN on 12/15/19 at 11:57 AM PDT elephone Encounter - Anusha Damian RN - 020 11:[address] Yuan office is notified, will follow patient at coumadin cli cheo. Per conversation with Dr Escobar, patient is to stop aspirin when he starts coumadin. Carol munoz notified of this. Faxed office visit notes to office [phone]. ....................... ...................Anusha Damian RN on 12/15/19 at 12:04 PM PDT elephone [facility] - Anusha Damian RN - 12/15/2019 8:58 AM PDTPatient's primary care is Davidviviane pan at [phone], left message for nurse to return call ................................. .........Anusha Damian RN on 12/15/19 at 8:59 AM PDT elephone [facility] Anusha Mercado RN - 12/14/2019 3:41 PM PDTPatient's called, she is frustrat ed with patient starting coumadin. They live in [place] and would like to go the coumadin clinic at [facility]. I spoke to the coumadin clinic, they will follow the patient if the orders are by a [facility] provider. I left a message for the nurse of Dr Yuan to ret urn my call ..........................................Anusha Damian RN on 12/14/19 at 3:59 PM PDT documented in thi s encounter Plan of [...] | | | | | | [place] [address] | | | | | | [phone] | | | | | | | | +--------+---------+ + + + | 02/25/ | Office | Cardiology | Hans Blanco, | | | 2019 | Visit | | MD [address] | | | | | | [place], | | | | | | [place] [address] | | | | | | [phone] | | | | | | | | +--------+---------+ + + + documented as of this encounter Visit Diagnoses Not on filedocumented in this encounter"
--- OUTSIDE RECORDS SUMMARY | ~2020-01-03 | XMS | Encounter Summary ---
Demographics + + + | Address | [address] | | | [place] [address] | + + + | Home Phone | | + + + | Preferred Language | Unknown | + + + | Marital Status | | + + + | Worship Affiliation | 1077 | + + + | Race | Unknown | + + + | Ethnic Group | Unknown | + + + Author + + + | Author | [facility] | | | and [place] | + + + | Organization | [facility] | | [...] Team Providers + +------+ + | Care Clay Artist Name | Role | Phone | + +------+ + | Ana Maria Yuan MD | PCP | | + +------+ + Reason for Visit + + + | Reason | Comments | + + + | Device Check | S/P pacemaker implantation | | (Remote) | | + + + Follow Up (Routine) +--------+--------+ + + + + | Status | Reason | Specialty | Diagnoses / | Referred By | Referred To | | | | | Procedures | Contact | Contact | +--------+--------+ + + + + | Closed | | Cardiology | Diagnoses | Bhupendra, | Francis, | | | | | Presence of | Osbaldo Leyva, | MD Hans | | | | | | MD [address] | [address] | | | | | aortocoronar | [address] | [place] [address] 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 | | | | | | | disease of | | | | | | | tunica-biloxi | | | | | | | coronary | | | | | | | artery | | | | | | | without | | | | | | | angina | | | | | | | pectoris | | | | | | | Bradycardia, | | | | | | | unspecified | | | | | | | OC/4WK | | | | | | | FUP/STRESS | | | | | | | 3-17/REST | | | | | | | 3-17/ECHO | | | | | | | 3-17/CP/CAD/ | | | | | | | CHF/BHUPENDRA | | | | | | | Procedures | | | | | | | FOLLOW UP | | | +--------+--------+ + + + + Encounter Details +--------+ + + + + | Date | Type | Department | Care Team | Description | +--------+ + + + + | 10/07/ | Clinical | [facility] | Hans Blanco, | Sinoatrial node | | 2020 | Support | CARDIOLOGY [address] | [address] [facility] | dysfuntion - | | | | [place], | [place], | bradycardia (Primary | | | | [place] [address] | [place] [address] | Dx); Pacemaker, | | | | [phone] | [phone] | Dual Chamber, MRI | | | | | [...] this encounter Last Filed Vital Signs + +---------+ + + | Vital Sign | Reading | Time Taken | Comments | + +---------+ + + | Blood Pressure | 98/58 | 10/08/2019 1:43 PM | | | | | PDT | | + +---------+ + + | Pulse | 60 | 10/08/2019 1:43 PM | | | | | PDT | | + +---------+ + + | Temperature | - | - | | + +---------+ + + | Respiratory Rate | - | - | | + +---------+ + + | Oxygen Saturation | - | - | | + +---------+ + + | Inhaled Oxygen | - | - | | | Concentration | | | | + +---------+ + + | Weight | - | - | | + +---------+ + + | Height | - | - | | + +---------+ + + | Body Mass Index | - | - | | + +---------+ + + documented in this encounter Functional [...] of this encounter Patient Instructions Patient Instructions Lawanda Turcios RN - 10/08/2019 1:30 PM PDTMaintain precautions on lef t side until October 22. Return for follow-up in three months. documented in this encounter Progress Notes Lawanda Turcios RN - 10/08/2019 1:30 PM PDTPatient is seen today one week status post pacem luis angel implant. The wound is well approximated with no redness A moderate amount of resolving purplish to yellowish bruising at the pocket and into the axilla, and a slight amount of sw elling. Patient denies: fever, palpitations, chest pain, surgical pain, dizziness, lighthead edness, shortness of breath.Patient is reminded of precautions including not raising left ar m above 90 degrees, not lifting more than 10 pounds for 3 weeks. Patient was instructed in pendulum arm swing and encouraged to walk. Electronically signed by: Lawanda Turcios RN 020 1:42 PM documented in this enco unter Plan of Treatment +--------+---------+ + + + | Date | Type | Specialty | Care Team | Description | +--------+---------+ + + + | 01/20/ | Office | Cardiology | Hans Blanco, | | 2019 | Visit | | MD [address] | | | | | | [place], | | | | | | [place] [address] | | | | | | [phone] | | | | | | | | +--------+---------+ + + + | 02/25/ | Office | Cardiology | Hans Blanco, | | | 2019 | Visit | | MD [address] | | | | | | 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
--- OUTSIDE RECORDS SUMMARY | ~2020-01-03 | XMS | Encounter Summary ---
Demographics + + + | Address | [address] | | | [place] [address] | + + + | Home Phone | | + + + | Preferred Language | Unknown | + + + | Marital Status | | + + + | Oriental Orthodox Affiliation | 1077 | + + + | Race | Unknown | + + + | Ethnic Group | Unknown | + + + Author + + + | Author | [facility] | | | and [place] | + + + | Organization | [facility] | | | [...] Team Providers + +------+ + | Care Engraver Steel Plate Name | Role | Phone | + +------+ + | Ana Maria Yuan MD | PCP | | + +------+ + Reason for Visit + + + | Reason | Comments | + + + | Device Check | | | (Remote) | | + + + Encounter Details +--------+ + + + + | Date | Type | Department | Care Team | Description | +--------+ + + + + | 12/07/ | Implant | [facility] | Hans Blanco, | Pacemaker | | 2019 | Monitor | CARDIOLOGY [address] | [address] | reprogramming/check | | | | [place], | [place], | (Primary Dx); | | | | [place] [address] | [place] [address] | Pacemaker, Dual | | | | [phone] | [phone] | Chamber, MRI | | | | | | Capable, [facility] | | | | | | 10/02/2019 Francis; | | | | | | Sinoatrial node | | | | | | dysfuntion - | | | | | | bradycardia | +--------+ + + + + Social [...] + + documented as of this encounter Procedure Hans Hernandez MD - 12/08/2019 11:59 PM PDTAssociated Order(s): DEVICE INTERROGATION- R EMOTEProcedure(s): DEVICE INTERROGATION- REMOTEPre-Procedure Diagnose(s): Pacemaker reprogra mming/check; Pacemaker; Sinoatrial node dysfunction (HCC)Date of Remote Interrogation: 020 Refer to [employer] documentation and remote PDF scanned into [employer] for remote interrogation re shannen. Data collected by Lawanda Turcios RN Presenting rhythm: sinus rhythm AV paced 60-100 beats with intermittent atrial undersensin g noted. 0 mode switch episodes accounting for 0% of the time. No episodes. PVC singles 21,000 PVC singles 62700/month PVC runs 507 PVC runs 1690/month Histogram flat. Battery longevity 5.9 years. Small p wave noted at 0.6 (0.5-0.9), down from 1.2 at implant 10/02/19. Evidence of atrial u ndersensing on Consecutive PVC EGMS. Device interrogation due in office soon with chest X ray prior. This report occurred within the global period following implantation and therefore is not b illable. Message left for patient. documented in this encounter Plan of Treatment +--------+---------+ + + + | Date | Type | Specialty | Care Team | Description | +--------+---------+ + + + | 01/20/ Office | Cardiology | Hans Blanco, | | 2019 | Visit | | MD [address] | | | | | | [place], | | | | | | [place] [address] | | | | | | [phone] | | | | | | | | +--------+---------+ + + + | 02/25/ Office | Cardiology | Hans Blanco, | | | 2019 | Visit | | [address] | | | | | | [place], | | | | | | [place] [address] | | | | | | [phone] | | | | | | | | +--------+---------+ + + + documented as of this encounter Procedures + +--------+ + + + | Procedure Name | Priori | Date/Time | Associated Diagnosis | Comments | | | ty | | | | + +--------+ + + + | DEVICE | Routin | 10/12/2019 | Pacemaker | Results for this | | INTERROGATION- | e | 12:00 AM | reprogramming/check | procedure are in the | | REMOTE | | PDT | Pacemaker, Dual | results section. | | | | | Chamber, MRI | | | | | | Capable, [facility] | | | | | | 10/02/2019 Francis | | | | | | Sinoatrial node | | | | | | dysfuntion - | | | | | | bradycardia | | + +--------+ + + + documented in this encounter Results Device Interrogation - Remote (10/12/2019 12:00 AM PDT) + + + | Narrative | Performed At | + + + | Hans | BRIAN | | MD Francis 10/12/2019 1:13 PMDate of Remote Interrogation: | | | 10/11/2019 Refer to [employer] documentation and remote PDF scanned into | | | [facility] for remote interrogation results. Data collected by Lawanda Franz | | | CASPER Turcios Presenting rhythm: sinus rhythm AV paced 60-100 beats with | | | intermittent atrial undersensing noted. 0 mode switch episodes | | | accounting for 0% of the time.No episodes. PVC singles 21,000 | | | PVC singles 58696/monthPVC runs 507 PVC | | | runs 1690/monthHistogram flat. Battery longevity 5.9 | | | years.Small p wave noted at 0.6 (0.5-0.9), down from 1.2 at implant | | | 10/02/19. Evidence of atrial undersensing on Consecutive PVC | | | EGMS.Device interrogation due in office soon with chest X ray | | | prior.This report occurred within the global period following | | | implantation and therefore is not billable. Message left for patient. | | |Small p wave noted at 0.6 (0.5-0.9), down from 1.2 at implant | | |10/02/19. Evidence of atrial undersensing on Consecutive PVC EGMS. | | |Device interrogation due in office soon with chest X ray prior. | | |This report occurred within the global period following | | |implantation and therefore is not billable. | | |Message left for patient. | | | | | + + + + + | Procedure Note | + + | Hans Blanco MD - 12/08/2019 11:59 PM PDT Date of Remote Interrogation: | | 10/11/2019Refer to [employer] documentation and remote PDF scanned into [employer] for remote | | interrogation results. Data collected by Lawanda Turcios RN Presenting rhythm: sinus | | rhythm AV paced 60-100 beats with intermittent atrial undersensing noted. 0 mode switch | | episodes accounting for 0% of the time.No episodes. PVC singles 21,000 PVC | | singles 26297/monthPVC runs 507 PVC runs 1690/monthHistogram flat. | | Battery longevity 5.9 years.Small p wave noted at 0.6 (0.5-0.9), down from 1.2 at | | implant 10/02/19. Evidence of atrial undersensing on Consecutive PVC EGMS.Device | | interrogation due in office soon with chest X ray prior.This report occurred within the | | global period following implantation and therefore is not billable. Message left for | | patient. | |Device interrogation due in office soon with chest X ray prior. | |This report occurred within the global period following implantation and therefore is not b illable. | |Message left for patient. | | | + + + +---------+ + + | Performing | Address | City/State/Zipcode | Phone Number | | Organization | | | | + +---------+ + + | [facility] | | | | + +---------+ + + documented in this encounter Visit Diagnoses + + | Diagnosis | + + | Pacemaker reprogramming/check - Primary Fitting and adjustment of cardiac pacemaker | + + | Pacemaker, Dual Chamber, MRI Capable, [facility] [place] 10/02/2019 Francis Cardiac pacemaker | | in situ | + + | Sinoatrial node dysfuntion - bradycardia Sinoatrial node dysfunction | + + documented in this encounter"
--- OUTSIDE RECORDS SUMMARY | ~2020-01-03 | XMS | Encounter Summary ---
Demographics + + + | Address | [address] | | | [place] [address] | + + + | Home Phone | | + + + | Preferred Language | Unknown | + + + | Marital Status | | + + + | Jain Affiliation | 1077 | + + + | Race | Unknown | + + + | Ethnic Group | Unknown | + + + Author + + + | Author | [facility] | | | and [place] | + + + | Organization | [facility] | | [...] Team Providers + +------+ + | Care Deputy Clerk Name | Role | Phone | + +------+ + | Osbaldo Wood MD | PCP | | + +------+ + Encounter Details +--------+ + + + + | Date | Type | Department | Care Team | Description | +--------+ + + + + | 03/14/ | Hospital | [facility] | Hans Blanco, | Symptomatic | | 2018 | Encounter | MED CTR | [address] | bradycardia | | | | ELECTRODIAGNOSTICS | [place], | | | | | [address] [place] | [place] [address] | | | | | [place] [address] | [phone] | | | | | [phone] | | | +--------+ + + + [...] | 0 | | | | SA (KAMBAR HESTER) | 3 times daily. | | | [...] tablet by | 30 | 5 | 03/14/20 | | | (CRESTOR) 20 mg | mouth nightly. | tablet | | 18 | 0 | | tabletIndications: | | | | | | | CAD, multiple vessel | | | | | | + + + +---------+ + + documented as of this encounter Procedure Notes Hans Blanco MD - 03/17/2018 11:44 AM PDTAssociated Order(s): HOLTER MONITOR - 48 MIKE RProcedure(s): HOLTER MONITOR - 48 HOURFormatting of this note might be different from the o riginal. PATIENT NAME: Wilmer Pinon : 1935: AGE: 82 y.o. PRIMARY CARE: Osbaldo Wood MD READING BUFFING WHEEL FORMER MACHINE: Hans Blanco MD 48-HOUR HOLTER MONITOR REPORT DATE: 03/14/2018 IMPRESSION: 1) The predominant rhythm is sinus with HR between 58 to 98 bpm. The average HR was 72 bp m during the 48:03 hour recording. 2) There were occasional PVC's (519 total, mean 10.8/hr) with 11 couplets and no triplets. 3) There were very rare PAC's (155 total, mean 3.2/hr). 4) There were 54 episodes of bradycardia. The longest was 27 beats on Saturday 10:19. The minimum rate was 51 bpm on Saturday 00:56. 5) There was no tachycardia. 6) There was 1 pause of 2.o seconds on Saturday 00:05. 7) Diary was returned, no symptoms were reported. Signed by: Hans Blanco MD [facility] 03/17/2018, 11:44 documented in this encounter Plan of Treatment +--------+---------+ + + + | Date | Type | Specialty | Care Team | Description | +--------+---------+ + + + | 01/20/ | Office | Cardiology | Hans Blanco, | | | 2019 | Visit | | MD [address] | | | | | | [place], | | | | | | [place] [address] | | | | | | [phone] | | | | | | | | +--------+---------+ + + + | 02/25/ | Office | Cardiology | Hans Blanco, | | | 2019 | Visit | | MD [address] | | | | | | [place], | | | | | | [place] [address] | | | | | | [phone] | | | | | | | | +--------+---------+ + + + documented as of this encounter Procedures + +--------+ + + + | Procedure Name | Priori | Date/Time | Associated Diagnosis | Comments | | | ty | | | | + +--------+ + + + | HOLTER MONITOR - 48 | Routin | 03/17/2018 | Symptomatic | Results for this | | HOUR | e | 11:44 AM | bradycardia | procedure are in the | | | | PDT | | results section. | + +--------+ + + + documented in this encounter Results Holter monitor - 48 hour (03/17/2018 11:44 AM PDT) + + + | Narrative | Performed At | + + + | Hans Blanco MD 03/17/2018 12:42 PATIENT NAME: Kyra AGUIRRE | | Wilmer Pinon : 1935: AGE: 82 y.o. | | | PRIMARY CARE: Osbaldo Leyva | | | MD [place] READING BUFFING WHEEL FORMER MACHINE: Hans Blanco MD | | | 48-HOUR HOLTER [...] | no symptoms were reported. Signed by: Hans Blanco | | | [facility] 03/17/2018, 11:44 | | + + + + +---------+ + + | Performing | Address | City/State/Zipcode | Phone Number | | Organization | | | | + +---------+ + + | [facility] | | | | + +---------+ + + documented in this encounter Visit Diagnoses + + | Diagnosis | + + | Symptomatic bradycardia Other specified cardiac dysrhythmias | + + documented in this encounter"
--- OUTSIDE RECORDS SUMMARY | ~2020-01-03 | XMS | Encounter Summary ---
Demographics + + + | Address | [address] | | | [place] [address] | + + + | Home Phone | | + + + | Preferred Language | Unknown | + + + | Marital Status | | + + + | Roman Catholic Affiliation | 1077 | + + + [...] Team Providers + +------+ + | Care Landscape Account Manager Name | Role | Phone | + +------+ + | Ana Maria Yuan MD | PCP | | + +------+ + Reason for Visit +--------+--------+ + | Reason | Onset | Comments | | | Date | | +--------+--------+ + | Other | 10/04/ | Pacemaker precautions call. | | | 2020 | | +--------+--------+ + Encounter Details +--------+ + + + + | Date | Type | Department | Care Team | Description | +--------+ + + + + | 10/04/ | Telephone | [facility] | Francis Darleenjustyna, | Other (Pacemaker | | 2019 | | CARDIOLOGY [address] | MD [address] | precautions call.) | | | | [place], | [place], | | | | | [place] [address] | [place] [address] | | | | | [phone] | [phone] | | | | | | | [...] Telephone Encounter - Lawanda Turcios RN - 10/05/2019 10:35 AM PDTCalled patient to assess k nowledge of and reinforce teaching of precautions post Permanent Pacemaker implantation. Tiffanie boyer was asleep and I spoke with his Rhona. Rhona states patient has trouble remember ing so she will take instructions to help him. Patient is instructed to keep the incision cl topher and dry; normal showering is fine and the incision can be gently patted dry. We recommen d patient does not soak or scrub the incision. Itching is a normal part of the healing proce ss but please do not scratch or touch the incision. Patient is advised to call our office im mediately if incision becomes warm, red, opens, or if patient otherwise feels they want to a pply a bandage. Patient is instructed to not raise the left arm more than 90 degrees. The patient can not l ift, pull or push more than ten pounds on the left side. Patient is advised to scoot to the edge of a chair or bed before standing to assist in getting up. Appropriate use of assistive devices such as canes and walkers were discussed. Patient is retired. Patient is informed to maintain these precautions until October 23, 2019. Rhona is transferred to schedule a wou nd check appointment and office visit with device check in three months. Electronically sig douglas by: Lawanda Turcios RN 10/05/2019 10:46 AM documented in this enco unter Plan of Treatment +--------+---------+ + + + | Date | Type | Specialty | Care Team | Description | +--------+---------+ + + + | 01/20/ | Office | Cardiology | Hans Blanco, | | 2019 | Visit | | [address] | | | | | | [place], | | | | | | [place] [address] | | | | | | [phone] | | | | | | | | +--------+---------+ + + + | 02/25/ | Office | Cardiology | Hans Blanco, | | | 2019 | Visit | | MD [address] | | | | | | [place], | | | | | | [place] [address] | | | | | | [phone] | | | | | | | | +--------+---------+ + + + documented as of this encounter Visit Diagnoses Not on filedocumented in this encounter"
--- OUTSIDE RECORDS SUMMARY | ~2020-01-03 | XMS | Encounter Summary ---
Demographics + + + | Address | [address] | | | [place] [address] | + + + | Home Phone [...] Author + + + | Author | [facility] | + + + | Organization | [facility] | + + + | Address | Unknown | + + + | Phone | Unavailable | + + + Support + + +---------+ + | Name | Relationship | Address | Phone | + + +---------+ + | None None | ECON | Unknown | Unavailable | + + +---------+ + Care Team Providers + +------+ + | Care Handbag Stitcher Name | Role | Phone | + +------+ + PCP | Unavailable | + +------+ + Encounter Details +--------+ + + + + | Date | Type | Department | Care Team | Description | +--------+ + + + + | 03/04/ | Ancillary | [facility] | | | | 2005 | Registratio | Practice [address] | | | | | n | [facility], | | | | | | [place] [address] | | | | | | [phone] | | | +--------+ + + + [...]
--- OUTSIDE RECORDS SUMMARY | ~2020-01-03 | XMS | Clinical Summary ---
Demographics + + + | Address | [address] | | | [place] [address] | + + + | Home Phone | | + + + | Preferred Language | Unknown | + + + | Marital Status | Single | + + + | Muslim Affiliation | UNK | + + + | Race | Unknown | + + + | Ethnic Group | Other Race | + + + Author + + + | Author | [facility] | + + + | [...] Team Providers + +------+ + | Care Golf Club Weigher Name | Role | Phone | + +------+ + PCP | Unavailable | + +------+ + Source Comments ANA is fully live on both [facility] Ambulatory and [facility] InPatient.[facility] Allergies Not on File Medications Not on [...] | x | 18-Pre | 8 | 1106 | | | | | | sent | | [place], | | | | | | | | [place] | | | | | | | | [phone] | | + +--------+ +--------+ + +------+ [...] | | al/Fam | | 1936 | [phone] | [place] [address] | | | clifford | | | 1 (Home) | | + +--------+ +--------+ + +"
--- OUTSIDE RECORDS SUMMARY | ~2020-01-03 | XMS | Encounter Summary ---
Demographics + + + | Address | [address] | | | [place] [address] | + + + | Home Phone | | + + + | Preferred Language | Unknown | + + + | Marital Status | | + + + | Christianity Affiliation | 1077 | + + + [...] Team Providers + +------+ + | Care Production Planner Scheduler Name | Role | Phone | + [...] MD Callie | | | | | FUP | [address] | [address] [place] [address] | | | | | Procedures | [address] | [address] | | | | | [facility] | [place], | [place], | | | | | - [place] | [place] [address] | [place] [address] | | | | | CONSULTED IN | Phone: | Phone: | | | | | HOSPITAL | [phone] | [phone] | | | | | | Fax: | Fax: | | | | | | [phone] | [phone] | +--------+--------+ + + + + Encounter Details +--------+---------+ + + + | Date | Type | Department | Care Team | Description | +--------+---------+ + + + | 03/14/ | Office | [facility] | Callie Blanco, | Symptomatic | | 2018 | Visit | CARDIOLOGY [address] | [address] | bradycardia (Primary | | | | [place], | [place], | Dx); CAD, multiple | | | | [place] [address] | [place] [address] | vessel | | | | [phone] | [phone] | | | | | | | [...] 3 months Where to go for labs: [facility]- [address] Holter Monitor : 48 hour Date: Check-In [...] health until 03/08/2018 he was admitted to [facility] for syncope and bradycardia seen by Tyler [...] and lab reports on 03/08/2018-03/11/2018. Refer to administration manager. ASSESSMENT: 1. Bradycardia, irreversible, asymptomatic A. Echocardiogram [...] He is in a class I of [place] [employer] functional class. There is no [...] reviewed and edited this note. Sissy Mcmullen, Diesel Engine Tester 03/14/2018 ICallie MD, personally performed the services described in this documentation, as scribed in my presence and it is both accurate and complete. Sissy Mcmullen, Med Ass t 03/14/2018 8:57 Electronically signed by: Callie Blanco MD [facility] 03/14/2018 Portions of this chart may have been created with [employer] voice recognition software. Occasi onal wrong-word or [...] | 01/20/ | Office | Cardiology | Callie Blanco, | | | 2019 | Visit | | MD [address] | | | | | | [place], | | | | | | [place] [address] | | | | | | [phone] | | | | | | | | +--------+---------+ + + + | 02/25/ | Office | Cardiology | Callie Blanco, | | | 2019 | Visit | | MD [address] | | | | | | [place], | | | | | | [place] [address] | | | | | | [phone] | | | | | | | [...] Callie Blanco MD 03/17/2018 12:42 PATIENT NAME: | GAVIOTA AGUIRRE | | Wilmer Pinon : 1935: AGE: 82 y.o. | | | PRIMARY CARE: Osbaldo Leyva | | | MD [place] READING CUT OFF MAN: Callie Blanco MD | | | 48-HOUR [...] no symptoms were reported. Signed by: Callie Blanco, | | | [facility] 03/17/2018, 11:44 | | + + + [...] MD | | | | | | ([id number]) on 03/14/2018 | | | | | [...] Coronary atherosclerosis of unspecified type of vessel, [place] | | or graft | + + documented in this encounter
--- OUTSIDE RECORDS SUMMARY | ~2020-01-03 | XMS | Encounter Summary ---
Demographics + + + | Address | [address] | | | [place] [address] | + + + | Home Phone [...] Team Providers + +------+ + | Care Shrinking Machine Operator Name | Role | Phone | + +------+ + | Osbaldo Wood MD | PCP | | + +------+ + Encounter Details +--------+ + + + + | Date | Type | Department | Care Team | Description | +--------+ + + + + | 07/31/ | Orders Only | [facility] | Lena, | CAD, multiple | | 2019 | | [facility] | Trinh Taveras, | vessel; Congestive | | | | [address] [place] | Interactive Media Marketing Director | heart failure, | | | | [place], [place] | | unspecified HF | | | | [address] | | chronicity, | | | | [phone] | | unspecified heart | | | | | | failure type (HCC); | | | | | | Symptomatic | | | | | | bradycardia [...] [place], | | | | | | [place] [address] | | | | | | [phone] | | | | | | | | +--------+---------+ + + + | 02/25/ | Office | Cardiology | Hans Blanco, | | | 2019 | Visit | | [address] | | | | | | [place], | | | | | | [place] [address] | | | | | | [phone] | | | | | | | | +--------+---------+ + + + documented as of this encounter Procedures + +--------+ + + + | Procedure Name | Priori | Date/Time | Associated Diagnosis | Comments | | | ty | | | | + +--------+ + + + | CBC WITH | Routin | 07/31/2019 | CAD, multiple | Results for this | | DIFFERENTIAL | e | 2:51 PM | vessel Congestive | procedure are in the | | | | PST | heart failure, | results section. | | | | | unspecified HF | | | | | | chronicity, | | | | | | unspecified heart | | | | | | failure type (HCC) | | + +--------+ + + + | TSH | Routin | 07/31/2019 | Symptomatic | Results for this | | | e | 2:51 PM | bradycardia CAD, | procedure are in the | | | | PST | multiple vessel | results section. | | | | | Congestive heart | | | | | | failure, unspecified | | | | | | HF chronicity, | | | | | | unspecified heart | | | | | | failure type (HCC) | | + +--------+ + + + | B TYPE NATRIURETIC | Routin | 07/31/2019 | CAD, multiple | Results for this | | PEPTIDE | e | 2:51 PM | vessel Congestive | procedure are in the | | | | PST | heart failure, | results section. | | | | | unspecified HF | | | | | | chronicity, | | | | | | unspecified heart | | | | | | failure type (HCC) | | + +--------+ + + + | BASIC METABOLIC | Routin | 07/31/2019 | CAD, multiple | Results for this | | PANEL | e | 2:51 PM | vessel Congestive | procedure are in the | | | | PST | heart failure, | results section. | | | | | unspecified HF | | | | | | chronicity, | | | | | | unspecified heart | | | | | | failure type (HCC) | | + +--------+ + + + documented in this encounter Results CBC with Differential (07/31/2019 2:51 PM PST) + + + + + + | Component | Value | Ref Range | Performed | Pathologist | | | | | At | Signature | + + + + + + | White Blood | 6.7 | 4.0 - 11.0 K/uL | [facility] | | | Cells | | | [facility] | | | | [facility] | | | | | [facility] - | | | | | | LABORATORY | | + + + + + + | Red Blood | 3.56 (L) | 4.30 - 5.70 [...] [address] | [place] | [phone] | | [facility] | | [address] | | | - LABORATORY | | [...] (H) | 9 - 23 mg/dL | [facility] | | | | | | [facility] | | | | | | [facility] | | | | | | [facility] - | | | | | | LABORATORY | | + + + + + + | Creatinine | 2.04 (H) | 0.70 - 1.30 | [facility] | | | | | mg/dL | [facility] | | | | | | MEDICAL | | | | | | CENTER - | | | | | | LABORATORY | | + + + + + + | eGFR if not | 31 (L)Comment: | >=60 | [facility] | | | | GLOMERULAR FILTRATION | mL/min/1.73m2 | [facility] | | | LUXEM[facility]OURGER | RATE,ESTIMATED | | MEDICAL | | | | mL/min/1.20r7Vjlw than | | CENTER - | | [...] | | | | | mg/dL | [facility] | | | | | | MEDICAL | | | | | | CENTER - | | | | | | LABORATORY | | + + + + + + | BUN/Creatin | 13.7 | | [facility] | | | ine Ratio | | | [facility] | | [...] + | [facility] | [address] | [place] | [phone] | | [facility] | | [address] | | | - LABORATORY | | [...] | | | | | uIU/mL | [facility] | | | | | [...] | [facility] | [address] | [place] | [phone] | | [facility] | | [address] | | | - LABORATORY | | [...] method in use as of | | [facility] | | | | August 06, 2018. [...] ST. | [address] | [place], [place] | [phone] | | [facility] | | [address] | | | - LABORATORY | | | | + + + + + documented in this encounter Visit Diagnoses + + | Diagnosis | + + | CAD, multiple vessel Coronary atherosclerosis of unspecified type of vessel, tolowa dee-ni' | | or graft | + + | Congestive heart failure, unspecified HF chronicity, unspecified heart failure type | | (HCC) | + + | Symptomatic bradycardia Other specified cardiac dysrhythmias | + + documented in this encounter"
--- OUTSIDE RECORDS SUMMARY | ~2020-01-03 | XMS | Encounter Summary ---
Demographics + + + | Address | [address] | | | [place] [address] | + + + | Home Phone | | + + + | Preferred Language | Unknown | + + + | Marital Status | | + + + | Baptism Affiliation | 1077 | + + + | Race | Unknown | + + + | Ethnic Group | Unknown | + + + Author + + + | Author | [facility] | | | and [place] | + + + | Organization | [facility] | | | [...] Team Providers + +------+ + | Care Embossing Calender Operator Name | Role | Phone | + +------+ + | Osbaldo Wood MD | PCP | | + +------+ + Reason for Visit + +--------+ + | Reason | Onset | Comments | | | Date | | + +--------+ + | Blood Pressure | 05/06/ | | | | 2018 | | + +--------+ + Encounter Details +--------+ + + + + | Date | Type | Department | Care Team | Description | +--------+ + + + + | 05/06/ | Telephone | [facility] | Hans Blanco, | Blood Pressure | | 2017 | | CARDIOLOGY [address] | MD [address] | | | | | [place], | [place], | | | | | [place] [address] | [place] [address] | | | | | [phone] | [phone] | | | | | | | [...] Telephone Encounter - Anusha Damian RN - 05/07/2018 9:27 AM PSTPatient's Alondra munoz notified ..........................................Anusha Damian RN on 05/07/18 at 9 :35 elephone Encount er - Michela Iglesias RN - 05/06/2018 3:39 PM PSTAttempted to contact patient, no answer, no voicemail ...........................................Michela Iglesias RN on 05/06/18 at 1 5:40 elephone Encounter - Hans Blanco MD - 05/06/2018 3:04 PM PSTTake clonidine 0.1 mg by mouth once a day as needed when the SBP is above 160 mmHg.Electronically signed by Hans Blanco MD at 3:05 PM PSTTelephone Encounter - Muriel Oh CMA - 05/06/2018 2:14 PM PST Next Visit:04/14/19 Blood pressure log received from patient as follows: 04/16/18--04/29/18 Medication Change: Start Amlodipine 5 mg One time daily Date BP AM Pulse AM BP PM Pulse PM 04/16/18 189/99 71 160/85 69 04/17/18 154/79 75 04/18/18 129/79 75 148/110 68 04/19/18 172/86 83 169/90 70 04/20/18 165/81 70 151/85 73 04/21/18 135/82 85 160/93 79 04/22/18 140/79 72 181/88 70 04/23/18 159/100 76 142/87 83 04/24/18 172/101 73 159/83 75 04/25/18 138/114 78 161/83 67 04/26/18 116/63 88 161/85 77 04/27/18 159/101 75 163/77 74 04/28/18 184/89 65 137/84 70 04/29/18 136/80 75 159/81 88 Additional Comments: documented in this encounter Plan of Treatment +--------+---------+ + + + | Date | Type | Specialty | Care Team | Description | +--------+---------+ + + + | 01/20/ | Office | Cardiology | Hans Blanco, | | | 2019 | Visit | | MD [address] | | | | | | [place], | | | | | | [place] [address] | | | | | | [phone] | | | | | | | | +--------+---------+ + + + | 02/25/ | Office | Cardiology | Hans Blanco, | | | 2019 | Visit | | MD [address] | | | | | | [place], | | | | | | [place] [address] | | | | | | [phone] | | | | | | | | +--------+---------+ + + + documented as of this encounter Visit Diagnoses Not on filedocumented in this encounter"
--- OUTSIDE RECORDS SUMMARY | ~2020-01-03 | XMS | Encounter Summary ---
Demographics + + + | Address | [address] | | | [place] [address] | + + + | Home Phone | | + + + | Preferred Language | Unknown | + + + | Marital Status | | + + + | Hindu Affiliation | 1077 | + + + [...] Team Providers + +------+ + | Care Group Product Manager Name | Role | Phone | + +------+ + | Osbaldo Wood MD | PCP | | + +------+ + Encounter Details +--------+ + + + + | Date | Type | Department | Care Team | Description | +--------+ + + + + | 06/30/ | Orders Only | [facility] | Mychal Real MD | | | 2014 | | CARDIOLOGY [place] | [address] | | | | | [address] | [place] [address] | | | | | [place] | [phone] | | | | | [address] | | | | | | [phone] | | | +--------+ + + + [...] | | | | | | [place] [address] | | | | | | [phone] | | | | | | | | +--------+---------+ + + + | 02/25/ | Office | Cardiology | Hans Blanco, | | | 2019 | Visit | | MD [address] | | | | | | [place], | | | | | | [place] [address] | | | | | | [phone] | | | | | | | [...] MV A Angel: 0.95 m/s MV Dec Tucker: 5.67 m/s2 MV DecT: | | | [...] TR Vmax: | | | 2.05 m/s Delphi Developer: ELI Authenticated by: Reno Zamarripa Report | | | Date/Time: -- [id number] | | + + + + + | Procedure Note | + + | Maciel, Rad Conversion - 01/29/2019 11:42 PM PDT Patient Name: Momo PINON | | : 1935 Performing Physician: Mychal [...] cmLVPWd: 0.87 cmLVOT Area: | | 4.58 [id number] Diam: 2.41 cm%FS: 33.93 %EF(Teich): 62.13 %ESV(Teich): [...] | Index (A-L): 34.93 ml/m2LAAs A2C: 21.19 [id number] A-L A2C: 72.47 mlLALs A2C: 5.26 | | cmLAAs A4C: 24.01 [id number] A-L A4C: 81.57 mlLALs A4C: 5.99 cmLVEF_4Ch_Q: 60.64 | | %Ao Diam: 3.38 cmLA Diam: 5.07 cmLA/Ao: 1.5AV maxP.14 mmHgAV meanP.22 | | mmHgAV Vmax: 1.23 m/Alex Vmean: 0.84 m/Alex VTI: 26.28 cmAVA Vmax: 3.61 cm2AVA | | (VTI): 3.56 gl8IPXK maxP.82 mmHgLVOT meanP.05 mmHgLVSI Dopp: 39.92 | | ml/m2LVSV Dopp: 93.83 mlLVOT Vmax: 0.97 m/sLVOT Vmean: 0.67 m/sLVOT VTI: 20.47 | | cmIVRT: 83.04 msMV A Angel: 0.95 m/sMV Dec Tucker: 5.67 m/s2MV DecT: 173.51 msMV E | | Angel: 0.97 m/sMV E/A Ratio: 1.02MV PHT: 50.31 msMVA By PHT: 4.37 cd4Ofrjmg e': | | 0.05 m/sSeptal E/e': 18.83Lateral e': 0.09 m/sLateral E/e': 10.48RAP: 10 | | mmHgRVSP: 26.85 mmHgTR maxP.85 mmHgTR Vmax: 2.05 m/s Delphi Developer: | | DHAuthenticated by: Reno Zhu Date/Time: -- [id number] IMPRESSION: | | 1. Overall left ventricular [...] A Angel: 0.95 m/s | |MV Dec Tucker: 5.67 m/s2 | |MV DecT: 173.51 ms [...] |TR Vmax: 2.05 m/s | | | |Delphi Developer: | |Authenticated by: Reno Zamarripa | |Report Date/Time: [id number] | | | |IMPRESSION: | |1. Overall [...]
--- OUTSIDE RECORDS SUMMARY | ~2020-01-03 | XMS | Clinical Summary ---
Demographics + + + | Address | [address] | | | [place] [address] | + + + | Home Phone | | + + + | Preferred Language | Unknown | + + + | Marital Status | Single | + + + | Confucianism Affiliation | UNK | + + + | Race | Unknown | + + + | Ethnic Group | Other Race | + + + Author + + + | Author | [facility] | + [...] Team Providers + +------+ + | Care Metalworking Specialist Name | Role | Phone | + +------+ + PCP | Unavailable | + +------+ + Source Comments ANA is fully live on both [facility] Ambulatory and [facility] InPatient.[facility] Allergies Not on File Medications Not [...] | | | | | | | [address] | | + +--------+ +--------+ + +------+ [...] | | al/Fam | | 1936 | [phone] | [place] [address] | | | [place] | | | 1 (Home) | | + +--------+ +--------+ + +"
--- OUTSIDE RECORDS SUMMARY | ~2020-01-03 | XMS | Encounter Summary ---
Demographics + + + | Address | [address] | | | [place] [address] | + + + | Home Phone | | + + + | Preferred Language | Unknown | + + + | Marital Status | | + + + | Spiritism Affiliation | 1077 | + + + | Race | Unknown | + + + | Ethnic Group | Unknown | + + + Author + + + | Author | [facility] | | | and [place] | + + + | Organization | [...] Team Providers + +------+ + | Care Motorsports Technician Name | Role | Phone | + +------+ + PCP | Unavailable | + +------+ + Encounter Details +--------+ + + + + | Date | Type | Department | Care Team | Description | +--------+ + + + + | 03/27/ | Hospital | [facility] | Conversion | 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 | [facility]ICAL CENTER | Transaction, | disease | | | | CLINICAL DECISION | Provider Unknown | | | 03/28/ | | [address] [facility] | | | | 2011 | | [place], [place] | (Fax) | | | | | [phone] | Mychal Real MD | | | | | [phone] | [address] | | | | | | [place] [address] | | | | | | [phone] | | | | | | | [...] documented as of this encounter Discharge Summaries Mychal Real MD - 03/28/2012 9:33 AM PDT Discharge Summaries by Mychal Real MD at 03/28/1233 Author: Mychal Real MD Service: Cardiology Author Type: Physician Filed: 03/29/12 1615 Date of Service: 03/28/12932 Status: Signed City Sanitarian: Mychal Real MD (Physician) [facility] Service: Cardiology Discharge Summary Date of Admission: 03/27/2012 Date of Discharge: 03/28/2012 Discharge Physician: Mychal Real MD Discharge Diagnoses: Hypertension Diabetes Hypercholesterolemia Coronary artery disease. Procedures: 1. Left heart catheterization. 2. Selective coronary angiogram. 3. Left ventriculogram. 4. Ascending aortogram. 5. Selective angiogram for left internal mammary artery to the left anterior descending. 6. Selective angiogram for free internal mammary graft to the third obtuse marginal. 7. Selective angiogram for occluded saphenous vein graft to right posterior descending azam ry. 8. Right common femoral angiogram. 9. Closure of the right common femoral arteriotomy with 6-Guinean Perclose closure device. 10. Angioplasty for saphenous vein graft to right posterior descending artery with 3 overla pping drug-eluting stents Promus Element Plus 2.75 x 38 mm, 3 x 32 mm, 3 x 38 mm distally to proximally. BRIEF HISTORY OF PRESENTATION: Wilmer Pinon 76 y.o. male with history of coronary artery disease with previous bypass tayla mihai x2, hypertension, hypercholesterolemia, diabetes, chronic kidney disease, who presented for evaluation of new onset of atypical unstable angina with accelerated chest pain with mi nimal exertion for the last 1 to 2 months, so he was referred for left heart catheterization . Cath showed: 1. Three [place] ir[place] vessel disease. 2. Patent left internal mammary artery to left anterior descending artery. 3. Patent arterial graft to the third obtuse marginal. 4. Occluded saphenous vein graft to the right posterior descending artery. 5. Moderate elevation systemic pressure. 6. Normal left ventricular end-diastolic pressure. 7. Severe systolic dysfunction with ejection fraction 25%. 8. No significant aortic stenosis. 9. There is +2 mitral valve regurgitation. Successful angioplasty for the saphenous vein graft to the right posterior descending arter y with 3 overlapping drug-eluting stents distal to proximal Promus Element Plus 2.75 x 38 mm , 3 x 32 mm, and 3 x 38 mm. Patient was observed overnight with no events and discharged next day in stable condition o n the listed medications. PAST MEDICAL HISTORY: Past Medical History Diagnosis Date Diabetes mellitus type II Allergic rhinitis, cause unspecified DISCHARGE EXAM Vital Signs: BP 121/58 | Pulse 76 | Temp(Src) 98.2 F (36.8 C) (Oral) | Resp 16 | Ht 1.854 m (6' 1") | Wt 115.214 kg (254 lb) | BMI 33.51 kg/m2 | SpO2 97% HEENT: No xanthelasmas. Extraocular movements were intact. No jaundice. NECK: no JVD, lymphadenopathy. Trachea is at midline. Thyroid is not palpable. CARDIAC: There is normal S1 and S2. No added sounds, murmurs, gallop, or rub. CHEST: Normal bilateral symmetrical chest excursion. Good bilateral air entry with no crack les or wheezing. No evidence of dullness. ABDOMEN: Soft and lax. No tenderness. No palpable organs. Active bowel sounds. EXTREMITIES: No lower extremities edema. NEURO: Alert and oriented times three with no focal deficit. Cranial nerves are grossly no rmal. SKIN: No bruises or rash. DATA: CBC: Lab Results Component Value Date WBC 7.1 03/28/2012 RBC 4.47 03/28/2012 HGB 15.2 03/28/2012 HCT 43.9 03/28/2012 MCV 98.3 03/28/2012 MCH 34.0 03/28/2012 MCHC 34.6 03/28/2012 RDW 49.4 03/28/2012 PLT 200 03/28/2012 MPV 8.3 03/28/2012 DIFFTYPE AUTOMATED 03/28/2012 BMP: Lab Results Component Value Date NA 138 03/28/2012 K 3.9 03/28/2012 CL 102 03/28/2012 CO2 25 03/28/2012 ANIONGAP 15 03/28/2012 GLUF 111* 03/28/2012 BUN 22 03/28/2012 CREATININE 1.3 03/28/2012 BCR 17 03/28/2012 CA 9.1 03/28/2012 EGFR 57* 03/28/2012 ASSESSMENT & PLAN: 76 y.o. male admitted for elective cardiac cath and underwent successful angioplasty for th e saphenous vein graft to the right posterior descending artery with 3 overlapping drug-elut ing stents distal to proximal Promus Element Plus 2.75 x 38 mm, 3x 32 mm, and 3 x 38 mm. 1. Aspirin 325mg for 3 months, followed by 81mg indefinitely. 2. Plavix 75mg for at least one year. Preferred indefinitely. 3. Aggressive risk factros modification. 4. Reassessment of the ejection fraction in 3 months for the need of primary prevention wit h an AICD. DISCHARGE MEDICATIONS: Wilmer Pinon Home Medication Instructions JASPER:[id number] Printed on:03/28/12 1089 Medication Information metformin (GLUCOPHAGE) 500 MG tablet Take 500 mg by mouth daily with breakfast. allopurinol (ZYLOPRIM) 300 MG tablet Take 300 mg by mouth daily. metoprolol (LOPRESSOR) 100 MG tablet Take 100 mg by mouth once. metoprolol (TOPROL-XL) 50 MG 24 hr tablet Take 50 mg by mouth nightly. isosorbide dinitrate (ISORDIL) 30 MG tablet Take 60 mg by mouth 2 (two) times daily. isosorbide dinitrate (ISORDIL) 30 MG tablet Take 30 mg by mouth daily. At noon lansoprazole (PREVACID) 30 MG capsule Take 30 mg by mouth daily. hydrochlorothiazide (MICROZIDE) 12.5 MG capsule Take 50 mg by mouth daily. cetirizine (ZYRTEC) 10 MG tablet Take 10 mg by mouth daily. calcium carbonate (OS-ISATU) 600 MG TABS Take 600 mg by mouth daily. calcium citrate-vitamin D (CITRACAL+D) 315-200 MG-UNIT per tablet Take 1 tablet by mouth daily. fish oil-omega-3 fatty acids 1000 MG capsule Take 2 g by mouth daily. B Complex-C (SUPER B COMPLEX PO) Take 1 tablet by mouth. glimepiride (AMARYL) 4 MG tablet Take 4 mg by mouth every morning before breakfast. clopidogrel (PLAVIX) 75 MG tablet Take 1 tablet by mouth daily. aspirin (MARTHA ASPIRIN) 325 MG tablet Take 1 tablet by mouth daily. FOLLOW UP: Please, follow up with Dr. Real in 2-3 weeks. Disposition: Home Condition: Stable Code Status: Full Code Discharge took 20 minutes, to include final examination, discussion of admission, and prepa ration of prescriptions, instructions for on-going care, follow-up and documentation of disc harge summary. Mychal Real MD 03/28/2012 documented in this enc ounter Progress Notes Conversion Transaction, Provider Unknown - 03/28/2012 10:34 AM PDTFormatting of this note m ight be different from the original. Progress Notes by Arelis Moreira RN at 03/28/121033 Author: Arelis Moreira RN Service: (none) Author Type: Registered Nurse Filed: 03/28/12 1037 Date of Service: 03/28/121033 Status: Signed City Sanitarian: Arelis Moreira RN (Registered Nurse) Patient and spouse denies questions or concerns at this time. One prescription given to maricel lakishadavid. Discharged ambulatory with spouse. onver rohini Transaction, Provider Unknown - 03/28/2012 9:19 AM PDT Progress Notes by JAIME Borden at 03/28/12918 Author: JAIME Borden Service: (none) Author Type: Logistic Specialist Filed: 03/28/12918 Date of Service: 03/28/12918 Status: Signed City Sanitarian: AJIME Borden (Logistic Specialist) VIOLIN TEACHER met mookie/ CHRISTIANO Navarrete Lead nurse, states no d/c needs or concerns. onver rohini Transaction, Provider Unknown - 03/27/2012 5:00 PM PDT Progress Notes by Britt Manuel RN at 03/27/121699 Author: Britt Manuel RN Service: (none) Author Type: Registered Nurse Filed: 03/27/121719 Date of Service: 03/27/121699 Status: Signed City Sanitarian: Britt Manuel RN (Registered Nurse) Patient ambulated in malone. Tolerated well. Groin site unchanged post ambulation. Dressing a t site changed due to small amount of staining. Site remains soft and non-tender. Pedal and tibial pulses bilat remain +2. onver rohini Transaction, Provider Unknown - 03/27/2012 2:14 PM PDT Progress Notes by Tamir Nichols RPH at 03/27/12 1414 Author: Tamir Nichols RPH Service: (none) Author Type: Pharmacist Filed: 03/27/121413 Date of Service: 03/27/121413 Status: Signed City Sanitarian: Tamir Nichols RPH (Pharmacist) Renal Dosing Monitoring: Wilmer Pinon 76 y.o. male Pharmacy dosing for renal function per Dr. Real Medication(s): none at this time Plan per protocol: CrCl = 58.8 ml/min SCr 1.4 Pharmacy will continue monitoring patient for appropriate dosing per renal function. 03/27/2012 2:12 PM Pharmacist: TAMIR NICHOLS onver rohini Transaction, Provider Unknown - 03/27/2012 1:45 PM PDT Progress Notes by Britt Manuel RN at 03/27/12 1345 Author: Britt Manuel RN Service: (none) Author Type: Registered Nurse Filed: 03/27/12 6302 Date of Service: 03/27/121344 Status: Signed City Sanitarian: Britt Manuel RN (Registered Nurse) Patient admit to unit post heart cath with 3 stents to RCA graft. Right groin site perclose , soft, small stain on dressing. No c/o pain. Patient has baseline RLE numbness, full LLE se nsation. Patient educated on keeping head flat and RLE straight for a 3 hour duration. Patie nt voices understanding of restrictions. docume nted in this encounter Plan of Treatment +--------+---------+ + + + | Date | Type | Specialty | Care Team | Description | +--------+---------+ + + + | 01/20/ | Office | Cardiology | Hans Blanco, | | | 2019 | Visit | | MD Eda Howard | | | | | | [place], | | | | | | [place] [address] | | | | | | [phone] | | | | | | | | +--------+---------+ + + + | 02/25/ | Office | Cardiology | Hans Blanco, | | | 2019 | Visit | | MD Eda Howard | | | | | | [place], | | | | | | [place] [address] | | | | | | [phone] | | | | | | | | +--------+---------+ + + + documented as of this encounter Procedures + +--------+ + + + | Procedure Name | Priori | Date/Time | Associated Diagnosis | Comments | | | ty | | | | + +--------+ + + + | CV CARDIAC PROCEDURE | Routin | 03/27/2012 | | Results for this | | | e | 1:18 PM | | procedure are in the | | | | PDT | | results section. | + +--------+ + + + | CV CARDIAC PROCEDURE | Routin | 03/27/2012 | | Results for this | | | e | 1:18 PM | | procedure are in the | | | | PDT | | results section. | + +--------+ + + + documented in this encounter Results CV CARDIAC PROCEDURE (03/27/2012 1:18 PM PDT) + + | Specimen | + + | | + + + + + | Narrative | Performed At | + + + | | | | | | | PROCEDURES 1. Left heart catheterization. 2. Selective coronary | | | angiogram. 3. Left ventriculogram. 4. Ascending aortogram. 5. | | | Selective angiogram for left internal mammary artery to the left | | | anterior descending. 6. Selective angiogram for free internal mammary | | | graft to the third obtuse marginal. 7. Selective angiogram for | | | occluded saphenous vein graft to right posterior descending artery. | | | 8. Right common femoral angiogram. 9. Closure of the right common | | | femoral arteriotomy with 6-Guinean Perclose closure device. 10. | | | Angioplasty for saphenous vein graft to right posterior descending | | | artery with 3 overlapping drug-eluting stents Promus Element Plus | | | 2.75 x 38 mm, 3 x 32 mm, 3 x 38 mm distally to proximally. | | | INDICATIONS Mr. Pinon is a 76-year-old gentleman with history of | | | coronary artery disease with previous bypass surgery x2, | | | hypertension, hypercholesterolemia, diabetes, chronic kidney disease, | | | who presented for evaluation of new onset of atypical unstable | | | angina with accelerated chest pain with minimal exertion for the last | | | 1 to 2 months, so he was referred for left heart catheterization. | | | DESCRIPTION OF PROCEDURE The procedure details, alternatives, | | | complications were explained for the patient. Informed consent was | | | obtained. The patient was brought to the room and prepped in sterile | | | fashion. Timeout was performed. Conscious sedation was administered | | | by independent observer. Right groin was anesthetized with 1% | | | lidocaine. Under fluoroscopic guidance, right common femoral artery | | | was cannulized with a 6-Guinean sheath. Right common femoral angiogram | | | was performed. Over a guidewire, a 6-Guinean diagnostic JL4 catheter | | | advanced to the ascending aorta. Selectively engaging the left main, | | | contrast was injected, selective angiogram for the left main, LAD, | | | left circumflex artery performed. Over the guidewire, it was | | | exchanged for a 6-Guinean diagnostic JR4 catheter. Selective engaging | | | the RCA, contrast was injected, selective angiogram for the RCA | | | performed in different views. Then it was used to selectively engage | | | the free internal mammary artery graft to the third obtuse marginal. | | | Then it was used to selectively engage the occluded SVG to the right | | | PDA. Next, it selectively engaged the left subclavian artery. Over | | | 260 exchange wire, it was exchanged for a 5-Guinean IM catheter that | | | selectively engaged the BAILEY to the LAD. Contrast was injected, | | | selective angiogram for the BAILEY to the LAD performed in different | | | views. Over the guidewire, the IM catheter was exchanged for a | | | 6-Guinean angled pigtail catheter that was advanced to the left | | | ventricle and left ventriculogram performed in the [place] view. Then it | | | was pulled to the ascending aorta and ascending aortogram was | | | performed in the [place] view. I noticed that there was only 2 grafts | | | open for this patient; BAILEY to the LAD and free IM graft to the third | | | obtuse marginal. The SVG to the right PDA is occluded and I did not | | | see any additional grafts per the ascending aortogram. Decision | | | was to proceed with attempt of angioplasty for the SVG to the right | | | PDA given the short duration of symptoms for less than 2 months. | | | The patient was given additional IV heparin to bring ACT more than | | | 200. Over the guidewire, the pigtail catheter was exchanged for a | | | 6-Guinean JR4 guide that selectively engaged the stump of the SVG to | | | the right PDA. Using 180 cm [employer] 50 wire, I was able to advance the | | | wire down to the [place] ira right PDA. I first re-cannulized the graft | | | using multiple passes with 6-Guinean Indiahoma catheter that retrieved a | | | lot of red clot and JENNA-3 flow was established in the SVG to the | | | right PDA. The SVG was diffusely diseased, so I decided to attempt | | | angioplasty with stent. I put an EZ Filter 2.25 to 3 mm EZ Filter in | | | the distal SVG body and I pulled the [employer] wire. I predilated the SVG | | | using [place] RX balloon 2.5 x 20 mm at multiple inflations at 12 | | | atmospheres. Then I put the distal part of the SVG stent Promus | | | Element Plus 2.75 x 38 mm and another stent overlapping with the | | | proximal part of the first stent Promus Element Plus 3 x 32 mm, then | | | a third stent overlapping with the proximal part of the second stent | | | Promus Element Plus 3 x 38 mm. I postdilated the stents with NC | | | Quantum 3.25 x 20 mm balloon at multiple inflations at 16 | | | atmospheres. Then I postdilated one area in the proximal stent that | | | did not post dilate fully with the 20 mm balloon, so I used a 3.25 x | | | 8 NC Quantum balloon and I postdilated that area at 22 atmospheres. | | | Balloon was removed. Another pass with the Indiahoma catheter was done | | | before retrieval of the filter. After the filter was retrieved using | | | the retrieval device, a final angiogram was done showing JENNA-3 flow | | | and 0% stenosis in the SVG to the right PDA. Next, the guide was | | | removed and the sheath was removed. The arteriotomy was closed using | | | 6-Guinean Perclose closure device with good hemostasis. The patient | | | was transferred to the recovery area in stable condition. FINDINGS | | | HEMODYNAMICS 1. Blood pressure moderate elevation 160/83. 2. | | | Normal left ventricular end-diastolic pressure 13. 3. No significant | | | aortic stenosis by pullback. ANGIOGRAM 1. Left main is very | | | short. Almost separate ostia for the LAD and left circumflex | | | artery. 2. LAD is 100% occluded at the ostium and the proximal. The | | | mid and distal LAD are filled with a patent BAILEY to the LAD. All | | | 3 diagonals are absent. 3. Left circumflex artery is diffusely | | | diseased in the proximal and mid part, more than 90% lesions. The | | | first and second obtuse marginal are tiny with diffuse disease, | | | but the third obtuse marginal is patent with a free IM arterial | | | graft to the third obtuse marginal. 4. RCA proximally 80% to 90% | | | lesion, mid is 100% occluded. Then the right PDA is filled with | | | re-opened SVG to the right PDA. The right AV groove artery is | | | normal size with no significant stenosis. It gives 3 small right | | | posterolateral arteries, all small size with no significant | | | stenosis. 5. Right dominant circulation. GRAFTS 1. BAILEY to LAD | | | patent. 2. Free arterial graft to the third obtuse marginal is | | | patent. 3. SVG to the right PDA is occluded. LEFT VENTRICULOGRAM | | | Severe systolic dysfunction with EF 25%, aneurysmal inferior wall, | | | and +2 mitral valve regurgitation. CONTRAST USED 226 mL. | | | COMPLICATIONS None. ESTIMATED BLOOD LOSS Less than 50 mL. | | | CONCLUSIONS 1. Three [place] ira vessel disease. 2. Patent left internal | | | mammary artery to left anterior descending artery. 3. Patent | | | arterial graft to the third obtuse marginal. 4. Occluded saphenous | | | vein graft to the right posterior descending artery. 5. Moderate | | | elevation systemic pressure. 6. Normal left ventricular | | | end-diastolic pressure. 7. Severe systolic dysfunction with ejection | | | fraction 25%. 8. No significant aortic stenosis. 9. There is +2 | | | mitral valve regurgitation. 10. Successful angioplasty for the | | | saphenous vein graft to the right posterior descending artery | | | with 3 overlapping drug-eluting stents distal to proximal Promus | | | Element Plus 2.75 x 38 mm, 3 x 32 mm, and 3 x 38 mm. | | | RECOMMENDATIONS 1. Aspirin 325 mg for 3 months, then 81 mg | | | indefinitely. 2. Plavix 600 mg x1, then 75 mg indefinitely. 3. | | | Aggressive risk factor modification. 4. Reassessment of the ejection | | | fraction in 3 months for the need of primary prevention with an | | | AICD. Read by MYCHAL REAL MD 03/27/2012 01:25 P | | | | | + + + + + | Procedure Note | + + | [facility] Conversion - 01/31/2019 4:21 AM PDT | | | | PROCEDURES | | 1. Left heart catheterization. | | 2. Selective coronary angiogram. | | 3. Left ventriculogram. | | 4. Ascending aortogram. | | 5. Selective angiogram for left internal mammary artery to the left | | anterior descending. | | 6. Selective angiogram for free internal mammary graft to the third obtuse | | marginal. | | 7. Selective angiogram for occluded saphenous vein graft to right | | posterior descending artery. | | 8. Right common femoral angiogram. | | 9. Closure of the right common femoral arteriotomy with 6-Guinean Perclose | | closure device. | | 10. Angioplasty for saphenous vein graft to right posterior descending | | artery with 3 overlapping drug-eluting stents Promus Element Plus 2.75 | | x 38 mm, 3 x 32 mm, 3 x 38 mm distally to proximally. | | | | INDICATIONS | | Mr. Pinon is a 76-year-old gentleman with history of coronary artery | | disease with previous bypass surgery x2, hypertension, | | hypercholesterolemia, diabetes, chronic kidney disease, who presented for | | evaluation of new onset of atypical unstable angina with accelerated chest | | pain with minimal exertion for the last 1 to 2 months, so he was referred | | for left heart catheterization. | | | | DESCRIPTION OF PROCEDURE | | The procedure details, alternatives, complications were explained for the | | patient. Informed consent was obtained. The patient was brought to the | | room and prepped in sterile fashion. Timeout was performed. Conscious | | sedation was administered by independent observer. | | | | Right groin was anesthetized with 1% lidocaine. Under fluoroscopic | | guidance, right common femoral artery was cannulized with a 6-Guinean | | sheath. Right common femoral angiogram was performed. Over a guidewire, a | | 6-Guinean diagnostic JL4 catheter advanced to the ascending aorta. | | Selectively engaging the left main, contrast was injected, selective | | angiogram for the left main, LAD, left circumflex artery performed. Over | | the guidewire, it was exchanged for a 6-Guinean diagnostic JR4 catheter. | | Selective engaging the RCA, contrast was injected, selective angiogram for | | the RCA performed in different views. Then it was used to selectively | | engage the free internal mammary artery graft to the third obtuse | | marginal. Then it was used to selectively engage the occluded SVG to the | | right PDA. Next, it selectively engaged the left subclavian artery. Over | | 260 exchange wire, it was exchanged for a 5-Guinean IM catheter that | | selectively engaged the BAILEY to the LAD. Contrast was injected, selective | | angiogram for the BAILEY to the LAD performed in different views. Over the | | guidewire, the IM catheter was exchanged for a 6-Guinean angled pigtail | | catheter that was advanced to the left ventricle and left ventriculogram | | performed in the [place] view. Then it was pulled to the ascending aorta and | | ascending aortogram was performed in the [place] view. | | | | I noticed that there was only 2 grafts open for this patient; BAILEY to the | | LAD and free IM graft to the third obtuse marginal. The SVG to the right | | PDA is occluded and I did not see any additional grafts per the ascending | | aortogram. | | | | Decision was to proceed with attempt of angioplasty for the SVG to the | | right PDA given the short duration of symptoms for less than 2 months. | | | | The patient was given additional IV heparin to bring ACT more than 200. | | Over the guidewire, the pigtail catheter was exchanged for a 6-Guinean JR4 | | guide that selectively engaged the stump of the SVG to the right PDA. | | Using 180 cm [employer] Developer 50 wire, I was able to advance the wire down to the | | [place] ir[place] right PDA. I first re-cannulized the graft using multiple passes | | with 6-Guinean Indiahoma catheter that retrieved a lot of red clot and JENNA-3 | | flow was established in the SVG to the right PDA. The SVG was diffusely | | diseased, so I decided to attempt angioplasty with stent. I put an EZ | | Filter 2.25 to 3 mm EZ Filter in the distal SVG body and I pulled the | | [employer] wire. I predilated the SVG using [place] RX balloon 2.5 x 20 mm at | | multiple inflations at 12 atmospheres. Then I put the distal part of the | | SVG stent Promus Element Plus 2.75 x 38 mm and another stent overlapping | | with the proximal part of the first stent Promus Element Plus 3 x 32 mm, | | then a third stent overlapping with the proximal part of the second stent | | Promus Element Plus 3 x 38 mm. I postdilated the stents with NC Quantum | | 3.25 x 20 mm balloon at multiple inflations at 16 atmospheres. Then I | | postdilated one area in the proximal stent that did not post dilate fully | | with the 20 mm balloon, so I used a 3.25 x 8 NC Quantum balloon and I | | postdilated that area at 22 atmospheres. Balloon was removed. Another pass | | with the Indiahoma catheter was done before retrieval of the filter. After | | the filter was retrieved using the retrieval device, a final angiogram was | | done showing JENNA-3 flow and 0% stenosis in the SVG to the right PDA. | | Next, the guide was removed and the sheath was removed. The arteriotomy | | was closed using 6-[place] Perclose closure device with good hemostasis. | | The patient was transferred to the recovery area in stable condition. | | | | FINDINGS | | HEMODYNAMICS | | 1. Blood pressure moderate elevation 160/83. | | 2. Normal left ventricular end-diastolic pressure 13. | | 3. No significant aortic stenosis by pullback. | | | | ANGIOGRAM | | 1. Left main is very short. Almost separate ostia for the LAD and left | | circumflex artery. | | 2. LAD is 100% occluded at the ostium and the proximal. The mid and distal | | LAD are filled with a patent BAILEY to the LAD. All 3 diagonals are | | absent. | | 3. Left circumflex artery is diffusely diseased in the proximal and mid | | part, more than 90% lesions. The first and second obtuse marginal are | | tiny with diffuse disease, but the third obtuse marginal is patent with | | a free IM arterial graft to the third obtuse marginal. | | 4. RCA proximally 80% to 90% lesion, mid is 100% occluded. Then the right | | PDA is filled with re-opened SVG to the right PDA. The right AV groove | | artery is normal size with no significant stenosis. It gives 3 small | | right posterolateral arteries, all small size with no significant | | stenosis. | | 5. Right dominant circulation. | | | | GRAFTS | | 1. BAILEY to LAD patent. | | 2. Free arterial graft to the third obtuse marginal is patent. | | 3. SVG to the right PDA is occluded. | | | | LEFT VENTRICULOGRAM | | Severe systolic dysfunction with EF 25%, aneurysmal inferior wall, and +2 | | mitral valve regurgitation. | | | | CONTRAST USED | | 226 mL. | | | | COMPLICATIONS | | None. | | | | ESTIMATED BLOOD LOSS | | Less than 50 mL. | | | | CONCLUSIONS | | 1. Three [place] vessel disease. | | 2. Patent left internal mammary artery to left anterior descending | | artery. | | 3. Patent arterial graft to the third obtuse marginal. | | 4. Occluded saphenous vein graft to the right posterior descending | | artery. | | 5. Moderate elevation systemic pressure. | | 6. Normal left ventricular end-diastolic pressure. | | 7. Severe systolic dysfunction with ejection fraction 25%. | | 8. No significant aortic stenosis. | | 9. There is +2 mitral valve regurgitation. | | 10. Successful angioplasty for the saphenous vein graft to the right | | posterior descending artery with 3 overlapping drug-eluting stents | | distal to proximal Promus Element Plus 2.75 x 38 mm, 3 x 32 mm, and 3 x | | 38 mm. | | | | RECOMMENDATIONS | | 1. Aspirin 325 mg for 3 months, then 81 mg indefinitely. | | 2. Plavix 600 mg x1, then 75 mg indefinitely. | | 3. Aggressive risk factor modification. | | 4. Reassessment of the ejection fraction in 3 months for the need of | | primary prevention with an AICD. | | | | Read by MYCHAL REAL MD 03/27/2012 01:25 P | | | | | + + CV CARDIAC PROCEDURE (03/27/2012 1:18 PM PDT) + + | Specimen | + + | | + + + + + | Narrative | Performed At | + + + | | | | | | | PROCEDURES 1. Left heart catheterization. 2. Selective coronary | | | angiogram. 3. Left ventriculogram. 4. Ascending aortogram. 5. | | | Selective angiogram for left internal mammary artery to the left | | | anterior descending. 6. Selective angiogram for free internal mammary | | | graft to the third obtuse marginal. 7. Selective angiogram for | | | occluded saphenous vein graft to right posterior descending artery. | | | 8. Right common femoral angiogram. 9. Closure of the right common | | | femoral arteriotomy with 6-[place] Perclose closure device. 10. | | | Angioplasty for saphenous vein graft to right posterior descending | | | artery with 3 overlapping drug-eluting stents Promus Element Plus | | | 2.75 x 38 mm, 3 x 32 mm, 3 x 38 mm distally to proximally. | | | INDICATIONS Mr. Pinon is a 76-year-old gentleman with history of | | | coronary artery disease with previous bypass surgery x2, | | | hypertension, hypercholesterolemia, diabetes, chronic kidney disease, | | | who presented for evaluation of new onset of atypical unstable | | | angina with accelerated chest pain with minimal exertion for the last | | | 1 to 2 months, so he was referred for left heart catheterization. | | | DESCRIPTION OF PROCEDURE The procedure details, alternatives, | | | complications were explained for the patient. Informed consent was | | | obtained. The patient was brought to the room and prepped in sterile | | | fashion. Timeout was performed. Conscious sedation was administered | | | by independent observer. Right groin was anesthetized with 1% | | | lidocaine. Under fluoroscopic guidance, right common femoral artery | | | was cannulized with a 6-Guine[place] sheath. Right common femoral angiogram | | | was performed. Over a guidewire, a 6-[place]ine[place] diagnostic JL4 catheter | | | advanced to the ascending aorta. Selectively engaging the left main, | | | contrast was injected, selective angiogram for the left main, LAD, | | | left circumflex artery performed. Over the guidewire, it was | | | exchanged for a 6-[place] diagnostic JR4 catheter. Selective engaging | | | the RCA, contrast was injected, selective angiogram for the RCA | | | performed in different views. Then it was used to selectively engage | | | the free internal mammary artery graft to the third obtuse marginal. | | | Then it was used to selectively engage the occluded SVG to the right | | | PDA. Next, it selectively engaged the left subclavian artery. Over | | | 260 exchange wire, it was exchanged for a 5-Guinean IM catheter that | | | selectively engaged the BAILEY to the LAD. Contrast was injected, | | | selective angiogram for the BAILEY to the LAD performed in different | | | views. Over the guidewire, the IM catheter was exchanged for a | | | 6-[place] angled pigtail catheter that was advanced to the left | | | ventricle and left ventriculogram performed in the [place] view. Then it | | | was pulled to the ascending aorta and ascending aortogram was | | | performed in the [place] view. I noticed that there was only 2 grafts | | | open for this patient; BAILEY to the LAD and free IM graft to the third | | | obtuse marginal. The SVG to the right PDA is occluded and I did not | | | see any additional grafts per the ascending aortogram. Decision | | | was to proceed with attempt of angioplasty for the SVG to the right | | | PDA given the short duration of symptoms for less than 2 months. | | | The patient was given additional IV heparin to bring ACT more than | | | 200. Over the guidewire, the pigtail catheter was exchanged for a | | | 6-[place] JR4 guide that selectively engaged the stump of the SVG to | | | the right PDA. Using 180 cm [employer] 50 wire, I was able to advance the | | | wire down to the [place] right PDA. I first re-cannulized the graft | | | using multiple passes with 6-[place] Indiahoma catheter that retrieved a | | | lot of red clot and JENNA-3 flow was established in the SVG to the | | | right PDA. The SVG was diffusely diseased, so I decided to attempt | | | angioplasty with stent. I put an EZ Filter 2.25 to 3 mm EZ Filter in | | | the distal SVG body and I pulled the [employer] wire. I predilated the SVG | | | using [place] RX balloon 2.5 x 20 mm at multiple inflations at 12 | | | atmospheres. Then I put the distal part of the SVG stent Promus | | | Element Plus 2.75 x 38 mm and another stent overlapping with the | | | proximal part of the first stent Promus Element Plus 3 x 32 mm, then | | | a third stent overlapping with the proximal part of the second stent | | | Promus Element Plus 3 x 38 mm. I postdilated the stents with NC | | | Quantum 3.25 x 20 mm balloon at multiple inflations at 16 | | | atmospheres. Then I postdilated one area in the proximal stent that | | | did not post dilate fully with the 20 mm balloon, so I used a 3.25 x | | | 8 NC Quantum balloon and I postdilated that area at 22 atmospheres. | | | Balloon was removed. Another pass with the Indiahoma catheter was done | | | before retrieval of the filter. After the filter was retrieved using | | | the retrieval device, a final angiogram was done showing JENNA-3 flow | | | and 0% stenosis in the SVG to the right PDA. Next, the guide was | | | removed and the sheath was removed. The arteriotomy was closed using | | | 6-[place] Perclose closure device with good hemostasis. The patient | | | was transferred to the recovery area in stable condition. FINDINGS | | | HEMODYNAMICS 1. Blood pressure moderate elevation 160/83. 2. | | | Normal left ventricular end-diastolic pressure 13. 3. No significant | | | aortic stenosis by pullback. ANGIOGRAM 1. Left main is very | | | short. Almost separate ostia for the LAD and left circumflex | | | artery. 2. LAD is 100% occluded at the ostium and the proximal. The | | | mid and distal LAD are filled with a patent BAILEY to the LAD. All | | | 3 diagonals are absent. 3. Left circumflex artery is diffusely | | | diseased in the proximal and mid part, more than 90% lesions. The | | | first and second obtuse marginal are tiny with diffuse disease, | | | but the third obtuse marginal is patent with a free IM arterial | | | graft to the third obtuse marginal. 4. RCA proximally 80% to 90% | | | lesion, mid is 100% occluded. Then the right PDA is filled with | | | re-opened SVG to the right PDA. The right AV groove artery is | | | normal size with no significant stenosis. It gives 3 small right | | | posterolateral arteries, all small size with no significant | | | stenosis. 5. Right dominant circulation. GRAFTS 1. BAILEY to LAD | | | patent. 2. Free arterial graft to the third obtuse marginal is | | | patent. 3. SVG to the right PDA is occluded. LEFT VENTRICULOGRAM | | | Severe systolic dysfunction with EF 25%, aneurysmal inferior wall, | | | and +2 mitral valve regurgitation. CONTRAST USED 226 mL. | | | COMPLICATIONS None. ESTIMATED BLOOD LOSS Less than 50 mL. | | | CONCLUSIONS 1. Three [place] vessel disease. 2. Patent left internal | | | mammary artery to left anterior descending artery. 3. Patent | | | arterial graft to the third obtuse marginal. 4. Occluded saphenous | | | vein graft to the right posterior descending artery. 5. Moderate | | | elevation systemic pressure. 6. Normal left ventricular | | | end-diastolic pressure. 7. Severe systolic dysfunction with ejection | | | fraction 25%. 8. No significant aortic stenosis. 9. There is +2 | | | mitral valve regurgitation. 10. Successful angioplasty for the | | | saphenous vein graft to the right posterior descending artery | | | with 3 overlapping drug-eluting stents distal to proximal Promus | | | Element Plus 2.75 x 38 mm, 3 x 32 mm, and 3 x 38 mm. | | | RECOMMENDATIONS 1. Aspirin 325 mg for 3 months, then 81 mg | | | indefinitely. 2. Plavix 600 mg x1, then 75 mg indefinitely. 3. | | | Aggressive risk factor modification. 4. Reassessment of the ejection | | | fraction in 3 months for the need of primary prevention with an | | | AICD. Read by MYCHAL REAL MD 03/27/2012 01:25 P | | | | | + + + + + | Procedure Note | + + | [facility] [facility] - 01/31/2019 4:21 AM PDT | | | | PROCEDURES | | 1. Left heart catheterization. | | 2. Selective coronary angiogram. | | 3. Left ventriculogram. | | 4. Ascending aortogram. | | 5. Selective angiogram for left internal mammary artery to the left | | anterior descending. | | 6. Selective angiogram for free internal mammary graft to the third obtuse | | marginal. | | 7. Selective angiogram for occluded saphenous vein graft to right | | posterior descending artery. | | 8. Right common femoral angiogram. | | 9. Closure of the right common femoral arteriotomy with 6-[place] Perclose | | closure device. | | 10. Angioplasty for saphenous vein graft to right posterior descending | | artery with 3 overlapping drug-eluting stents Promus Element Plus 2.75 | | x 38 mm, 3 x 32 mm, 3 x 38 mm distally to proximally. | | | | INDICATIONS | | Mr. Pinon is a 76-year-old gentleman with history of coronary artery | | disease with previous bypass surgery x2, hypertension, | | hypercholesterolemia, diabetes, chronic kidney disease, who presented for | | evaluation of new onset of atypical unstable angina with accelerated chest | | pain with minimal exertion for the last 1 to 2 months, so he was referred | | for left heart catheterization. | | | | DESCRIPTION OF PROCEDURE | | The procedure details, alternatives, complications were explained for the | | patient. Informed consent was obtained. The patient was brought to the | | room and prepped in sterile fashion. Timeout was performed. Conscious | | sedation was administered by independent observer. | | | | Right groin was anesthetized with 1% lidocaine. Under fluoroscopic | | guidance, right common femoral artery was cannulized with a 6-[place]inean | | sheath. Right common femoral angiogram was performed. Over a guidewire, a | | 6-[place]ine[place] diagnostic JL4 catheter advanced to the ascending aorta. | | Selectively engaging the left main, contrast was injected, selective | | angiogram for the left main, LAD, left circumflex artery performed. Over | | the guidewire, it was exchanged for a 6-[place]ine[place] diagnostic JR4 catheter. | | Selective engaging the RCA, contrast was injected, selective angiogram for | | the RCA performed in different views. Then it was used to selectively | | engage the free internal mammary artery graft to the third obtuse | | marginal. Then it was used to selectively engage the occluded SVG to the | | right PDA. Next, it selectively engaged the left subclavian artery. Over | | 260 exchange wire, it was exchanged for a 5-[place]inean IM catheter that | | selectively engaged the BAILEY to the LAD. Contrast was injected, selective | | angiogram for the BAILEY to the LAD performed in different views. Over the | | guidewire, the IM catheter was exchanged for a 6-[place] angled pigtail | | catheter that was advanced to the left ventricle and left ventriculogram | | performed in the [place] view. Then it was pulled to the ascending aorta and | | ascending aortogram was performed in the [place] view. | | | | I noticed that there was only 2 grafts open for this patient; BAILEY to the | | LAD and free IM graft to the third obtuse marginal. The SVG to the right | | PDA is occluded and I did not see any additional grafts per the ascending | | aortogram. | | | | Decision was to proceed with attempt of angioplasty for the SVG to the | | right PDA given the short duration of symptoms for less than 2 months. | | | | The patient was given additional IV heparin to bring ACT more than 200. | | Over the guidewire, the pigtail catheter was exchanged for a 6-[place] JR4 | | guide that selectively engaged the stump of the SVG to the right PDA. | | Using 180 cm [employer] 50 wire, I was able to advance the wire down to the | | [place] right PDA. I first re-cannulized the graft using multiple passes | | with 6-[place] Indiahoma catheter that retrieved a lot of red clot and JENNA-3 | | flow was established in the SVG to the right PDA. The SVG was diffusely | | diseased, so I decided to attempt angioplasty with stent. I put an EZ | | Filter 2.25 to 3 mm EZ Filter in the distal SVG body and I pulled the | | [employer] wire. I predilated the SVG using [place] RX balloon 2.5 x 20 mm at | | multiple inflations at 12 atmospheres. Then I put the distal part of the | | SVG stent Promus Element Plus 2.75 x 38 mm and another stent overlapping | | with the proximal part of the first stent Promus Element Plus 3 x 32 mm, | | then a third stent overlapping with the proximal part of the second stent | | Promus Element Plus 3 x 38 mm. I postdilated the stents with NC Quantum | | 3.25 x 20 mm balloon at multiple inflations at 16 atmospheres. Then I | | postdilated one area in the proximal stent that did not post dilate fully | | with the 20 mm balloon, so I used a 3.25 x 8 NC Quantum balloon and I | | postdilated that area at 22 atmospheres. Balloon was removed. Another pass | | with the India[place] catheter was done before retrieval of the filter. After | | the filter was retrieved using the retrieval device, a final angiogram was | | done showing JENNA-3 flow and 0% stenosis in the SVG to the right PDA. | | Next, the guide was removed and the sheath was removed. The arteriotomy | | was closed using 6-[place] Perclose closure device with good hemostasis. | | The patient was transferred to the recovery area in stable condition. | | | | FINDINGS | | HEMODYNAMICS | | 1. Blood pressure moderate elevation 160/83. | | 2. Normal left ventricular end-diastolic pressure 13. | | 3. No significant aortic stenosis by pullback. | | | | ANGIOGRAM | | 1. Left main is very short. Almost separate ostia for the LAD and left | | circumflex artery. | | 2. LAD is 100% occluded at the ostium and the proximal. The mid and distal | | LAD are filled with a patent BAILEY to the LAD. All 3 diagonals are | | absent. | | 3. Left circumflex artery is diffusely diseased in the proximal and mid | | part, more than 90% lesions. The first and second obtuse marginal are | | tiny with diffuse disease, but the third obtuse marginal is patent with | | a free IM arterial graft to the third obtuse marginal. | | 4. RCA proximally 80% to 90% lesion, mid is 100% occluded. Then the right | | PDA is filled with re-opened SVG to the right PDA. The right AV groove | | artery is normal size with no significant stenosis. It gives 3 small | | right posterolateral arteries, all small size with no significant | | stenosis. | | 5. Right dominant circulation. | | | | GRAFTS | | 1. BAILEY to LAD patent. | | 2. Free arterial graft to the third obtuse marginal is patent. | | 3. SVG to the right PDA is occluded. | | | | LEFT VENTRICULOGRAM | | Severe systolic dysfunction with EF 25%, aneurysmal inferior wall, and +2 | | mitral valve regurgitation. | | | | CONTRAST USED | | 226 mL. | | | | COMPLICATIONS | | None. | | | | ESTIMATED BLOOD LOSS | | Less than 50 mL. | | | | CONCLUSIONS | | 1. Three [place] vessel disease. | | 2. Patent left internal mammary artery to left anterior descending | | artery. | | 3. Patent arterial graft to the third obtuse marginal. | | 4. Occluded saphenous vein graft to the right posterior descending | | artery. | | 5. Moderate elevation systemic pressure. | | 6. Normal left ventricular end-diastolic pressure. | | 7. Severe systolic dysfunction with ejection fraction 25%. | | 8. No significant aortic stenosis. | | 9. There is +2 mitral valve regurgitation. | | 10. Successful angioplasty for the saphenous vein graft to the right | | posterior descending artery with 3 overlapping drug-eluting stents | | distal to proximal Promus Element Plus 2.75 x 38 mm, 3 x 32 mm, and 3 x | | 38 mm. | | | | RECOMMENDATIONS | | 1. Aspirin 325 mg for 3 months, then 81 mg indefinitely. | | 2. Plavix 600 mg x1, then 75 mg indefinitely. | | 3. Aggressive risk factor modification. | | 4. Reassessment of the ejection fraction in 3 months for the need of | | primary prevention with an AICD. | | | | Read by MYCHAL REAL MD 03/27/2012 01:25 P | | | | | + + documented in this encounter Visit Diagnoses + + | Diagnosis | + + | Coronary artery disease Coronary atherosclerosis of unspecified type of vessel, | | [place] or graft | + + documented in this encounter
--- OUTSIDE RECORDS SUMMARY | ~2020-01-03 | XMS | Encounter Summary ---
Demographics + + + | Address | [address] | | | [place] [address] | + + + | Home Phone | | + + + | Preferred Language | Unknown | + + + | Marital Status | | + + + | Confucianism Affiliation | 1077 | + + + [...] Team Providers + +------+ + | Care Communication Technician Name | Role | Phone | + +------+ + | Osbaldo Wood MD | PCP | | + +------+ + Encounter Details +--------+ + + + + | Date | Type | Department | Care Team | Description | +--------+ + + + + | 08/06/ | Orders Only | [facility] | Conversion | | | 2014 | | [facility] | Transaction, | | | | | [address] | Provider Unknown | | | | | [facility] [place] | [phone] | | | | | [address] | | | | | | [phone] | | | +--------+ + + + [...] 2019 | Visit | | [address] | | | | | | [place], | | | | | | [place] [address] | | | | | | [phone] | | | | | | | | +--------+---------+ + + + | 02/25/ | Office | Cardiology | Hans Blanco, | | | 2019 | Visit | | MD [address] | | | | | | [place], | | | | | | [place] [address] | | | | | | [phone] | | | | | | | | +--------+---------+ + + + documented as of this encounter Procedures + +--------+ + + + | Procedure Name | Priori | Date/Time | Associated Diagnosis | Comments | | | ty | | | | + +--------+ + + + | EXTERNAL LAB: CBC | Routin | 09/08/2014 | | Results for this | | | e | 9:36 AM | | procedure are in the | | | | PDT | | results section. | + +--------+ + + + | LIPID PANEL | Routin | 09/08/2014 | | Results for this | | | e | 9:36 AM | | procedure are in the | | | | PDT | | results section. | + +--------+ + + + | VITAMIN B-12 | Routin | 09/08/2014 | | Results for this | | | e | 9:36 AM | | procedure are in the | | | | PDT | | results section. | + +--------+ + + + | VITAMIN D, | Routin | 09/08/2014 | | Results for this | | DEFICIENCY SCREEN | e | 9:36 AM | | procedure are in the | | (25-HYDROXY) | | PDT | | results section. | + +--------+ + + + | SEDIMENTATION RATE, | Routin | 09/08/2014 | | Results for this | | AUTOMATED | e | 9:36 AM | | procedure are in the | | | | PDT | | results section. | + +--------+ + + + | URIC ACID | Routin | 09/08/2014 | | Results for this | | | e | 9:36 AM | | procedure are in the | | | | PDT | | results section. | + +--------+ + + + | B TYPE NATRIURETIC | Routin | 09/08/2014 | | Results for this | | PEPTIDE | e | 9:36 AM | | procedure are in the | | | | PDT | | results section. | + +--------+ + + + | IRON, TOTAL | Routin | 09/08/2014 | | Results for this | | | e | 9:36 AM | | procedure are in the | | | | PDT | | results section. | + +--------+ + + + | HEMOGLOBIN A1C | Routin | 09/08/2014 | | Results for this | | | e | 9:36 AM | | procedure are in the | | | | PDT | | results section. | + +--------+ + + + | COMPREHENSIVE | Routin | 09/08/2014 | | Results for this | | METABOLIC PANEL | e | 9:36 AM | | procedure are in the | | | | PDT | | results section. | + +--------+ + + + | EXTERNAL LAB: CBC | Routin | 08/06/2014 | | Results for this | | | e | 10:25 AM | | procedure are in the | | | | PST | | results section. | + +--------+ + + + | CK TOTAL | Routin | 08/06/2014 | | Results for this | | | e | 10:25 AM | | procedure are in the | | | | PST | | results section. | + +--------+ + + + | COMPREHENSIVE | Routin | 08/06/2014 | | Results for this | | METABOLIC PANEL | e | 10:25 AM | | procedure are in the | | | | PST | | results section. | + +--------+ + + + | EXTERNAL LAB: CBC | Routin | 08/06/2014 | | Results for this | | | e | 1:00 AM | | procedure are in the | | | | PST | | results section. | + +--------+ + + + | URINALYSIS WITH | Routin | 08/06/2014 | | Results for this | | MICROSCOPIC WITH | e | 1:00 AM | | procedure are in the | | CULTURE IF INDICATED | | PST | | results section. | + +--------+ + + + | MAGNESIUM | Routin | 08/06/2014 | | Results for this | | | e | 1:00 AM | | procedure are in the | | | | PST | | results section. | + +--------+ + + + | CK TOTAL | Routin | 08/06/2014 | | Results for this | | | e | 1:00 AM | | procedure are in the | | | | PST | | results section. | + +--------+ + + + | COMPREHENSIVE | Routin | 08/06/2014 | | Results for this | | METABOLIC PANEL | e | 1:00 AM | | procedure are in the | | | | PST | | results section. | + +--------+ + + + documented in this encounter Results Vitamin D, Deficiency Screen (25-Hydroxy) (09/08/2014 9:36 AM PDT) + +-------+ + + + | Component | Value | Ref Range | Performed | Pathologist | | | | | At | Signature | + +-------+ + + + | Vit D, | 34 | 30 - 100 ng/mL | EXTERNAL | | | 25-Hydroxy | [...] + +---------+ + + Sedimentation rate, automated (09/08/2014 9:36 AM PDT) + +-------+ + + + | Component | Value | Ref Range | Performed | Pathologist | | | | | At | Signature | + +-------+ + + + | Sed Rate | 2 | 0 - 15 mm/hr | EXTERNAL | | | | | [...] + +---------+ + + External Lab: CBC (09/08/2014 9:36 AM PDT) + + + + + + | Component | Value | Ref Range | Performed | Pathologist | | | | | At | Signature | + + + + + + | WBC | 6.2 | 4.5 - 11.0 10 | EXTERNAL | | | | | | LAB | | + + + + + + | Non- | 4.57 | 4.3 - 5.7 10 | EXTERNAL | | | Red Blood | | | LAB | | | Cells | | | | | | Counted | | | | | + + + + + + | Hemoglobin | 15.2 | 13.5 - 18.0 | EXTERNAL | | | | | g/dL | LAB | | + + + + + + | Hematocrit, | 45.9 | 41 - 50 % | EXTERNAL | | | POC | | | LAB | | + + + + + + | MCV | 100.5 (A) | 81 - 99 fL | EXTERNAL [...] + + + + | Platelet | 198 | 140 - 440 K/ L | [...] + + + + | Differentia | | | EXTERNAL | | | l Type | | | LAB | | + + + + + + | % Segmented | 45.1 | 39 - 80 % | EXTERNAL | | | | | | LAB | | | Neutrophils | | | | | + + + + + + | % | 31.9 | 24 - 44 % | EXTERNAL | | | Lymphocytes | | | LAB | | + + + + + + | % Monocytes | 13.5 (A) | 0 - 12 % | EXTERNAL | | | | | | LAB | | + + + + + + | % | 8.5 (A) | 0 - 6 % | EXTERNAL | | | Eosinophils | | | LAB | | + + + + + + | % Basophils | 1.0 | 0 - 2 % | EXTERNAL [...] | + +---------+ + + Uric Acid (09/08/2014 9:36 AM PDT) + +---------+ + + + | Component | Value | Ref Range | Performed | Pathologist | | | | | At | Signature | + +---------+ + + + | Uric Acid | 9.1 (A) | 4.4 - 7.6 | EXTERNAL | [...] | | | + +---------+ + + B Type Natriuretic Peptide (09/08/2014 9:36 AM PDT) + +-------+ + + + | Component | Value | Ref Range | Performed | Pathologist | | | | | At | Signature | + +-------+ + + + | BNP | 67 | 0 - 100 pg/mL | EXTERNAL | | | | | [...] | | | + +---------+ + + Iron, Total (09/08/2014 9:36 AM PDT) + +-------+ + + + | Component | Value | Ref Range | Performed | Pathologist | | | | | At | Signature | + +-------+ + + + | Iron | 128 | 37 - 160 ug/dL | EXTERNAL | | | | | [...] | | | + +---------+ + + Hemoglobin A1C (09/08/2014 9:36 AM PDT) + +---------+ + + + | Component | Value | Ref Range | Performed | Pathologist | | | | | At | Signature | + +---------+ + + + | Hemoglobin | 8.0 (A) | 4.0 - 6.0 % | EXTERNAL | | | A1c [...] | | + +---------+ + + Vitamin B-12 (09/08/2014 9:36 AM PDT) + +-------+ + + + | Component | Value | Ref Range | Performed | Pathologist | | | | | At | Signature | + +-------+ + + + | VITAMIN | 678.1 | 211 - 946 pg/ml | EXTERNAL | | | B-12 | | | LAB | | + [...] | + +---------+ + + Lipid Panel (09/08/2014 9:36 AM PDT) + + + + + + | Component | Value | Ref Range | Performed | Pathologist | | | | | At | Signature | + + + + + + | Cholesterol | 176 | 200 mg/dL | EXTERNAL | | | | | | LAB | | + + + + + + | Triglycerid | 276 (A) | 30 - 150 mg/dL | EXTERNAL | | | es | | | LAB | | + + + + + + | HDL | 29.5 (A) | 40 mg/dl | EXTERNAL | | | | | | LAB | | + + + + + + | LDL, | 91 | 100 mg/dL | EXTERNAL | | | Calculated | | | LAB | | + + + + + + | LDl/HDL | | | EXTERNAL | | | Ratio | | | LAB | | + + + + + + | Chol/HDL | 6.0 (A) | 4.97 | EXTERNAL | | | Ratio | | | LAB | | + + + + + + | VLDL | 55 (A) | 4 - 40 mg/dL | EXTERNAL | | | | | | LAB | | + + + + + + | Non HDL | 147 (A) | 130 | EXTERNAL | | [...] + +---------+ + + Comprehensive Metabolic Panel (09/08/2014 9:36 AM PDT) + + + + + + | Component | Value | Ref Range | Performed | Pathologist | | | | | At | Signature | + + + + + + | Glucose, | 142 (A) | 70 - 100 mg/dL | EXTERNAL | | | Fasting | | | LAB | | + + + + + + | BUN | 21 | 6 - 23 mg/dL | EXTERNAL | | | | | | LAB | | + + + + + + | Creatinine | 1.23 (A) | 0.70 - 1.18 | EXTERNAL | | | | | mg/dL | LAB | | + + + + + + | BUN/Creatin | 17.1 | 6.0 - 28.6 | EXTERNAL | | | ine Ratio | | | LAB | | + + + + + + | Calcium | 9.5 | 8.4 - 10.2 | EXTERNAL | | | | | mg/dL | LAB | | + + + + + + | Protein, | 6.9 | 6.0 - 8.0 g/dL | EXTERNAL | | | Total | | | LAB | | + + + + + + | Albumin | 4.2 | 3.5 - 5.0 | EXTERNAL | | | | | | LAB | | + + + + + + | Globulin | 2.7 | 1.8 - 3.5 | EXTERNAL | | | | | | LAB | | + + + + + + | A/G Ratio | 1.6 | 1.1 - 2.4 | EXTERNAL | | | | | | LAB | | + + + + + + | Bilirubin | 0.7 | 0.0 - 1.2 mg/dL | EXTERNAL | | | Total | | | LAB | | + + + + + + | ALP, | 68 | 30 - 128 | EXTERNAL | | | External | | | LAB | | + + + + + + | ALT | 54 (A) | 7 - 52 U/L | EXTERNAL | | | | | | LAB | | + + + + + + | AST | 40 (A) | 13 - 39 U/L | EXTERNAL | | | | | | LAB | | + + + + + + | Na | 135 | 132 - 143 | EXTERNAL | | | | | mmol/L | LAB | | + + + + + + | K | 4.1 | 3.6 - 5.1 | EXTERNAL | | | | | mmol/L | LAB | | + + + + + + | Cl | 97 | 95 - 112 mmol/L | EXTERNAL | | | | | | LAB | | + + + + + + | CO2 | 26 | 19 - 31 mmol/L | EXTERNAL | | | | | | LAB | | + + + + + + | Anion Gap | 16.1 | 7 - 21 mmol/L | EXTERNAL | | | | | | LAB | | + + + + + + | Estimated | 57 (A) | 60 mg/dL | EXTERNAL | | | GFR [...] + +---------+ + + External Lab: CBC (08/06/2014 10:25 AM PST) + + + + + + | Component | Value | Ref Range | Performed | Pathologist | | | | | At | Signature | + + + + + + | WBC | 7.5 | 4.5 - 11.0 10 | EXTERNAL | | | | | | LAB | | + + + + + + | Non- | 4.48 | 4.3 - 5.7 10 | EXTERNAL | | | Red Blood | | | LAB | | | Cells | | | | | | Counted | | | | | + + + + + + | Hemoglobin | 15.0 | 13.5 - 18.0 | EXTERNAL | | | | | g/dL | LAB | | + + + + + + | Hematocrit, | 44.8 | 41 - 50 % | EXTERNAL | | | POC | | | LAB | | + + + + + + | MCV | 100.1 (A) | 81 - 99 fL | EXTERNAL [...] + + + + | Platelet | 204 | 140 - 440 K/ L | EXTERNAL | | | Count | | | LAB | | | Plasma | | | | | + + + + + + | RDW-CV | 15.1 (A) | 10.5 - 15.0 % | EXTERNAL | | | | | | LAB | | + + + + + + | MPV | | fL | EXTERNAL | | | | | | LAB | | + + + + + + | Differentia | | | EXTERNAL | | | l Type | | | LAB | | + + + + + + | % Segmented | 46.9 | 39 - 80 % | EXTERNAL | | | | | | LAB | | | Neutrophils | | | | | + + + + + + | % | 28.9 | 24 - 44 % | EXTERNAL | | | Lymphocytes | | | LAB | | + + + + + + | % Monocytes | 12.3 (A) | 0 - 12 % | EXTERNAL | | | | | | LAB | | + + + + + + | % | 11.0 (A) | 0 - 6 % | [...] | | | + +---------+ + + CK Total (08/06/2014 10:25 AM PST) + +-------+ + + + | Component | Value | Ref Range | Performed | Pathologist | | | | | At | Signature | + +-------+ + + + | CK, Total | 78 | 24 - 195 U/L | EXTERNAL | | | | [...] + +---------+ + + Comprehensive Metabolic Panel (08/06/2014 10:25 AM PST) + + + + + + | Component | Value | Ref Range | Performed | Pathologist | | | | | At | Signature | + + + + + + | Glucose, | 154 (A) | 70 - 100 mg/dL | EXTERNAL | | | Fasting | | | LAB | | + + + + + + | BUN | 24 (A) | 6 - 23 mg/dL | EXTERNAL | | | | | | LAB | | + + + + + + | Creatinine | 1.19 (A) | 0.70 - 1.18 | EXTERNAL | | | | | mg/dL | LAB | | + + + + + + | BUN/Creatin | 20.2 | 6.0 - 28.6 | EXTERNAL | | | ine Ratio | | | LAB | | + + + + + + | Calcium | 9.6 | 8.4 - 10.2 | EXTERNAL | | | | | mg/dL | LAB | | + + + + + + | Protein, | 6.7 | 6.0 - 8.0 g/dL | EXTERNAL | | | Total | | | LAB | | + + + + + + | Albumin | 4.2 | 3.5 - 5.0 | EXTERNAL | | | | | | LAB | | + + + + + + | Globulin | 2.5 | 1.8 - 3.5 | EXTERNAL | | | | | | LAB | | + + + + + + | A/G Ratio | 1.7 | 1.1 - 2.4 | EXTERNAL | | | | | | LAB | | + + + + + + | Bilirubin | 0.9 | 0.0 - 1.2 mg/dL | EXTERNAL | | | Total | | | LAB | | + + + + + + | ALP, | 58 | 30 - 128 | EXTERNAL | | | External | | | LAB | | + + + + + + | ALT | 41 | 7 - 52 U/L | EXTERNAL | | | | | | LAB | | + + + + + + | AST | 32 | 13 - 39 U/L | EXTERNAL | | | | | | LAB | | + + + + + + | Na | 133 | 132 - 143 | EXTERNAL | [...] + + + + | CO2 | 29 | 19 - 31 mmol/L | EXTERNAL | | | | | | LAB | | + + + + + + | Anion Gap | 11.9 | 7 - 21 mmol/L | EXTERNAL | | | | | | LAB | | + + + + + + | Estimated | 59 (A) | 60 mg/dL | EXTERNAL | | | GFR [...] | | | + +---------+ + + Urinalysis with Microscopic with Culture if Indicated (08/06/2014 1:00 AM PST) + + + + + + | Component | Value | Ref Range | Performed | Pathologist | | | | | At | Signature | + + + + + + | Color | Yellow | | EXTERNAL | | | | | | LAB | | + + + + + + | Clarity, | Clear | | EXTERNAL | | | Urine | | | LAB | | + + + + + + | Spec Grav, | 1.005 | 1.005 - 1.030 | EXTERNAL | | | Fluid | | | LAB | | + + + + + + | Leukocyte | | | EXTERNAL | | | Esterase, [...] + + + + | Total | 30 (A) | 0 | EXTERNAL | | | Protein | | | LAB | | + + + + + + | pH, Urine | 6 | 5 - 9 | EXTERNAL | | | | | | LAB | | + + + + + + | Blood, | Positive | | EXTERNAL | | | Urine [...] + + + + + | WBC, UA | 2 | 0 - 4 | EXTERNAL | | | | | | LAB | | + + + + + + | RBC, UA | 10 (A) | 0 - 4 | EXTERNAL | | | | | | LAB | | + + + + + + | Epithelial | Negative | | EXTERNAL | | | Cells | | | LAB | | + + + + + + | Bacteria, | None Seen | | EXTERNAL | | | UA | | | LAB | | + + + + + + | HYALINE | | | EXTERNAL | | | CASTS UA | | | LAB | | + + + + + + + + | Specimen | + + | | + + + +---------+ + + | Performing | Address | City/State/Zipcode | Phone Number | | Organization | | | | + +---------+ + + | EXTERNAL LAB | | | | + +---------+ + + External Lab: CBC (08/06/2014 1:00 AM PST) + + + + + + | Component | Value | Ref Range | Performed | Pathologist | | | | | At | Signature | + + + + + + | WBC | 7.4 | 4.5 - 11.0 10 | EXTERNAL | | | | | | LAB | | + + + + + + | Non- | 4.49 | 4.3 - 5.7 10 | EXTERNAL | | | Red Blood | | | LAB | | | Cells | | | | | | Counted | | | | | + + + + + + | Hemoglobin | 14.6 | 13.5 - 18.0 | EXTERNAL | | | | | g/dL | LAB | | + + + + + + | Hematocrit, | 45.5 | 41 - 50 % | EXTERNAL | | | POC | | | LAB | | + + + + + + | MCV | 101.3 (A) | 81 - 99 fL | EXTERNAL | | | | | | LAB | | + + + + + + | MCH | 33 | 27 - 33 pg | EXTERNAL | | | | | | LAB | | + + + + + + | MCHC | 32 | 30 - 36 g/dL | EXTERNAL | | | | | | LAB | | + + + + + + | Platelet | 192 | 140 - 440 K/ L | EXTERNAL | | | Count | | | LAB | | | Plasma | | | | | + + + + + + | RDW-CV | 14.2 | 10.5 - 15.0 % | EXTERNAL | | | | | | LAB | | + + + + + + | MPV | | fL | EXTERNAL | | | | | | LAB | | + + + + + + | Differentia | | | EXTERNAL | | | l Type | | | LAB | | + + + + + + | % Segmented | 49.0 | 39 - 80 % | EXTERNAL | | | | | | LAB | | | Neutrophils | | | | | + + + + + + | % | 29.9 | 24 - 44 % | EXTERNAL | | | Lymphocytes | | | LAB | | + + + + + + | % Monocytes | 10.2 | 0 - 12 % | EXTERNAL | | | | | | LAB | | + + + + + + | % | 10.6 (A) | 0 - 6 % | EXTERNAL | | | Eosinophils | | | LAB | | + + + + + + | % Basophils | 0.3 | 0 - 2 % | EXTERNAL [...] | | + +---------+ + + Magnesium (08/06/2014 1:00 AM PST) + +---------+ + + + | Component | Value | Ref Range | Performed | Pathologist | | | | | At | Signature | + +---------+ + + + | Magnesium | 1.6 (A) | 1.7 - 2.5 mg/dL | EXTERNAL [...] | | | + +---------+ + + CK Total (08/06/2014 1:00 AM PST) + +-------+ + + + | Component | Value | Ref Range | Performed | Pathologist | | | | | At | Signature | + +-------+ + + + | CK, Total | 83 | 24 - 195 U/L | EXTERNAL | | | | [...] + +---------+ + + Comprehensive Metabolic Panel (08/06/2014 1:00 AM PST) + + + + + + | Component | Value | Ref Range | Performed | Pathologist | | | | | At | Signature | + + + + + + | Glucose, | 216 (A) | 70 - 100 mg/dL | EXTERNAL | | | Fasting | | | LAB | | + + + + + + | BUN | 25 (A) | 6 - 23 mg/dL | EXTERNAL | | | | | | LAB | | + + + + + + | Creatinine | 1.26 (A) | 0.70 - 1.18 | EXTERNAL | | | | | mg/dL | LAB | | + + + + + + | BUN/Creatin | 19.6 | 6.0 - 28.6 | EXTERNAL | | | ine Ratio | | | LAB | | + + + + + + | Calcium | 9.7 | 8.4 - 10.2 | EXTERNAL | | | | | mg/dL | LAB | | + + + + + + | Protein, | 7.0 | 6.0 - 8.0 g/dL | EXTERNAL | | | Total | | | LAB | | + + + + + + | Albumin | 4.1 | 3.5 - 5.0 | EXTERNAL | | | | | | LAB | | + + + + + + | Globulin | 2.9 | 1.8 - 3.5 | EXTERNAL | | | | | | LAB | | + + + + + + | A/G Ratio | 1.4 | 1.1 - 2.4 | EXTERNAL | | | | | | LAB | | + + + + + + | Bilirubin | 0.8 | 0.0 - 1.2 mg/dL | EXTERNAL | | | Total | | | LAB | | + + + + + + | ALP, | 70 | 30 - 128 | EXTERNAL | | | External | | | LAB | | + + + + + + | ALT | 44 | 7 - 52 U/L | EXTERNAL | | | | | | LAB | | + + + + + + | AST | 34 | 13 - 39 U/L | EXTERNAL | | | | | | LAB | | + + + + + + | Na | 133 | 132 - 143 | EXTERNAL | | | | | mmol/L | LAB | | + + + + + + | K | 3.6 | 3.6 - 5.1 | EXTERNAL | | | | | mmol/L | LAB | | + + + + + + | Cl | 97 | 95 - 112 mmol/L | EXTERNAL | | | | | | LAB | | + + + + + + | CO2 | 29 | 19 - 31 mmol/L | EXTERNAL | | | | | | LAB | | + + + + + + | Anion Gap | 10.6 | 7 - 21 mmol/L | EXTERNAL | | | | | | LAB | | + + + + + + | Estimated | 55 (A) | 60 mg/dL | EXTERNAL | | | GFR [...]
--- OUTSIDE RECORDS SUMMARY | ~2020-01-03 | XMS | Encounter Summary ---
Demographics + + + | Address | [address] | | | [place] [address] | + + + | Home Phone | | + + + | Preferred Language | Unknown | + + + | Marital Status | | + + + | Hindu Affiliation | 1077 | + + + | Race | Unknown | + + + | Ethnic Group | Unknown | + + + Author + + + | Author | [facility] | | | and [place] | + + + | Organization | [facility] | [...] Team Providers + +------+ + | Care Bead Trimmer Name | Role | Phone | + +------+ + | Ana Maria Yuan MD | PCP | | + +------+ + Reason for Visit +---------+--------+ + | Reason | Onset | Comments | | | Date | | +---------+--------+ + | Results | 12/02/ | Myron - new onset atrial flutter | | | 2020 | | +---------+--------+ + Encounter Details +--------+ + + + + | Date | Type | Department | Care Team | Description | +--------+ + + + + | 12/02/ | Telephone | [facility] | Hans Blanco, | Results (Myron - | | 2019 | | CARDIOLOGY [address] | MD [address] | new onset atrial | | | | [place], | [place], | flutter) | | | | [place] [address] | [place] [address] | | | | | [phone] | [phone] | | | | | | | [...] Telephone Encounter - Zaira Mcneil RN - 12/03/2019 9:30 AM PDTSpoke with diana Melgoza's and given results of Myron remote from 11/03/2019. New onset atrial flutter on . Reviewed with Dr Blanco, patient needs to be seen sooner then scheduled appoin tment in January, preferably within the next few weeks. Transferred call to schedulers. Electronically signed by: Zaira Mcneil RN 12/03/2019 9:34 AM PDT documented in this e ncounter Plan of Treatment +--------+---------+ + + + | Date | Type | Specialty | Care Team | Description | +--------+---------+ + + + | 01/20/ | Office | Cardiology | Hans Blanco, | | | 2019 | Visit | | MD [address] | | | | | | [place], | | | | | | [place] [address] | | | | | | [phone] | | | | | | | | +--------+---------+ + + + | 02/25/ | Office | Cardiology | Hans Blanco, | | 2019 | Visit | | MD [address] | | | | | | [place] | | | | | | [place] [address] | | | | | | [phone] | | | | | | | | +--------+---------+ + + + documented as of this encounter Visit Diagnoses Not on filedocumented in this encounter"
--- OUTSIDE RECORDS SUMMARY | ~2020-01-03 | XMS | Encounter Summary ---
Demographics + + + | Address | [address] | | | [place] [address] | + + + | Home Phone | | + + + | Preferred Language | Unknown | + + + | Marital Status | Single | + + + | Alevism Affiliation | UNK | + + + | Race | Unknown | + + + | Ethnic Group | Other Race | + + + Author + + + | Organization | Unknown | + + + | Address | Unknown | + + + | Phone | Unavailable | + + + Support + + +---------+ + | Name | Relationship | Address | Phone | + + +---------+ + | None None | ECON | Unknown | Unavailable | + + +---------+ + Care Team Providers + +------+ + | Care Wild Animal Caretaker Name | Role | Phone | + +------+ + PCP | Unavailable | + +------+ + Encounter Details +--------+ + + + + | Date | Type | Department | Care Team | Description | +--------+ + + + + | 02/25/ | Results | | Other, Faculty | | | 2005 | Only | | [phone] | | +--------+ + + + + [...] Not on filedocumented as of this encounter Procedures + +--------+ + + + | Procedure Name | Priori | Date/Time | Associated Diagnosis | Comments | | | ty | | | | + +--------+ + + + | DERMATOPATHOLOGY(WET | Routin | 02/25/2006 | | Results for this | | [place]) | e | | | procedure are in the | | | | | | results section. | + +--------+ + + + documented in this encounter Results DERMATOPATHOLOGY(W[facility]) (02/25/2006) + + + + + + | Component | Value | Ref Range | Performed | Pathologist | | | | | At | Signature | + + + + + + | DERMATOPATH | SOURCE OF SPECIMEN:A | | | | | OLOGY(WET | FIRST TISSUE LEVEL IV | | | | | MNT) | [address] CLINICAL | | | | | | DESCRIPTION:Punch, 4mm, | | | | | | rt. 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 vs | | | | | | inverse LP vs inverse | | | | | | psoriasis. GROSS | | | | | | DESCRIPTION:Rt. axilla, | | | | | | punch, 0.4 x 0.3 x 0.3 | | | | | | cm, bisected. | | | | | | MICROSCOPIC | | | | | | DESCRIPTION:There is | | | | | | laminated to basket | | | | | | weave hyperkeratosis | | | | | | containing a number | | | | | | ofpityrosporum spores | | | | | | overlying a papillated | | | | | | epidermis. In some | | | | | | areas thereis a dense | | | | | | lymphocytic infiltrate | | | | | | as we as neutrophils in | | | | | | the spinous andcornified | | | | | | layers. 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 | | | | | | [email or web address] | | | | | | Diagnostician: Patel | | | | | | Calderon Cohn Jr., | | | | | | Marianai | | | | | | tyler Signed 03/02/2006 | | | | + + + + + + + + | Specimen | + + | | + + + + + | Narrative | Performed At | + + + | Ordered by Hilaria Alva | | + + + + + + + + | Performing | Address | City/State/Zipcode | Phone Number | | Organization | | | | + + + + + | [facility] | [id number] | [place] [address] | | | DERMATOPATHOLOGY | [address] | | | + + + + + documented in this encounter Visit Diagnoses Not on filedocumented in this encounter"
--- OUTSIDE RECORDS SUMMARY | ~2020-01-03 | XMS | Encounter Summary ---
Demographics + + + | Address | [address] | | | [place] [address] | + + + | Home Phone | | + + + | Preferred Language | Unknown | + + + | Marital Status | | + + + | Alevism Affiliation | 1077 | + + + | Race | Unknown | + + + | Ethnic Group | Unknown | + + + Author + + + | Author | [facility] | | | and [place] | + + + | Organization | [facility] | | | [...] Team Providers + +------+ + | Care Welfare Supervisor Name | Role | Phone | + +------+ + PCP | Unavailable | + +------+ + Encounter Details +--------+ + + + + | Date | Type | Department | Care Team | Description | +--------+ + + + + | 04/06/ | Hospital | [facility] | Bianka, | | | 2003 - | Encounter | MED CTR CANCER | Dez Leyva MD [address] | | | | | CENTER [address] | [facility] | | | 06/07/ | | [facility] [place] | [place] [address] | | | 2003 | | [address] | [phone] | | | | | [phone] | | | +--------+ + + + [...] 2019 | Visit | | MD [address] | | | | | | [place], | | | | | | [place] [address] | | | | | | [phone] | | | | | | | | +--------+---------+ + + + | 02/25/ | Office | Cardiology | Hans Blanco, | | | 2019 | Visit | | [address] | | | | | | [place], | | | | | | [place] [address] | | | | | | [phone] | | | | | | | | +--------+---------+ + + + documented as of this encounter Visit Diagnoses Not on filedocumented in this encounter"
--- OUTSIDE RECORDS SUMMARY | ~2020-01-03 | XMS | Encounter Summary ---
Demographics + + + | Address | [address] | | | [place] [address] | + + + | Home Phone | | + + + | Preferred Language | Unknown | + + + | Marital Status | | + + + | Restoration Affiliation | 1077 | + + + | Race | Unknown | + + + | Ethnic Group | Unknown | + + + Author + + + | Author | [facility] | | | and [place] | + + + | Organization | [facility] | | | [...] Team Providers + +------+ + | Care Light Rail Vehicle Operator Name | Role | Phone | + +------+ + | Osbaldo Wood MD | PCP | | + +------+ + Encounter Details +--------+ + + + + | Date | Type | Department | Care Team | Description | +--------+ + + + + | 08/24/ | Abstract | [facility] | Provider, | | | 2019 | | CARDIOLOGY [address] | [address] | | | | | [place] | [place] | | | | | [facility] [address] | [place] [address] | | | | | [phone] | | | +--------+ + + + [...] [place], | | | | | | [place] [address] | | | | | | [phone] | | | | | | | | +--------+---------+ + + + | 02/25/ | Office | Cardiology | Hans Blanco, | | | 2019 | Visit | | [address] | | | | | | [place], | | | | | | [place] [address] | | | | | | [phone] | | | | | | | | +--------+---------+ + + + documented as of this encounter Procedures + +--------+ + + + | Procedure Name | Priori | Date/Time | Associated Diagnosis | Comments | | | ty | | | | + +--------+ + + + | EXTERNAL LAB: JASMIN | Routin | 08/24/2019 | | Results [...]
--- OUTSIDE RECORDS SUMMARY | ~2020-01-03 | XMS | Encounter Summary ---
Demographics + + + | Address | [address] | | | [place] [address] | + + + | Home Phone | | + + + | Preferred Language | Unknown | + + + | Marital Status | | + + + | Jew Affiliation | 1077 | + + + | Race | Unknown | + + + | Ethnic Group | Unknown | + + + Author + + + | Author | [facility] | | | and [place] | + + + | Organization | [facility] | | [...] Team Providers + +------+ + | Care Perinatal Director Name | Role | Phone | [...] multiple | [address] | | | | | vessel | [address] | [place], | | | | | Ischemic | [place], | [place] | | | | | cardiomyopat | [place] [address] | [address] | | | | | hy | Phone: | Phone: | | | | | Congestive | [phone] | [phone] | | | | | heart | Fax: | Fax: | | | | | failure, | [phone] | [phone] | | | | | unspecified | [...] Closed | | Radiology | Diagnoses | [place], | [facility] | | | | | CAD, | Suwong, MD | Medicine | | | | | multiple | [address] | [address] | | | | | vessel | [address] | [place], | | | | | Ischemic | [place], | [place] | | | | | cardiomyopat | [place] [address] | [address] | | | | | hy | Phone: | Phone: | | | | | Congestive | [phone] | [phone] | | | | | heart | Fax: | Fax: | | | | | failure, | [phone] | [phone] | | | | | unspecified | [...] Hospital | [facility] | Hans Blanco, | CAD, multiple | | 2020 | Encounter | MED CTR NUCLEAR | MD [address] | vessel; Ischemic | | | | MEDICINE [address] | [address] [place], | cardiomyopathy - | | | | [address] [place], | [place] [address] | ECHO Jun 2014 EF | | | | [place] [address] | [phone] | 55-60%; Congestive | | | | [phone] | | heart failure, | | | | | [employer] [facility], [facility] | unspecified HF | | | [...] | | | | | | [facility] [address] | | | | | | [phone] | | | | | | | | +--------+---------+ + + + | 02/25/ | Office | Cardiology | Hans Blanco, | | | 2019 | Visit | | MD [address] | | | | | | [place], | | | | | | [place] [address] | | | | | | [phone] | | | | | | | [...] Coronary atherosclerosis of unspecified type of vessel, [place] | | or graft | + + [...] | | | | | protocol, Starting 3/17/20 at | | AM PDT | | [...] | | | | | | | [facility] 08/25/19 at 1045, For 1 dose, | [...] | | | | Starting 08/25/19 at 1018, For | | | | | | | 1 dose, Nuclear Medicine | | | | | | + +-------+ + +---+---+ +---+---+ | | | +---+---+ documented in this encounter"
--- OUTSIDE RECORDS SUMMARY | ~2020-01-03 | XMS | Encounter Summary ---
Demographics + + + | Address | [address] | | | [place] [address] | + + + | Home Phone | | + + + | Preferred Language | Unknown | + + + | Marital Status | Single | + + + | Spiritism Affiliation | UNK | + + + | Race | Unknown | + + + | Ethnic Group | Other Race | + + + Author + + + | Author | [facility] | + + + | Organization | [facility] | + + + | Address | Unknown | + + + | Phone | Unavailable | + + + Support + + +---------+ + | Name | Relationship | Address | Phone | + + +---------+ + | None None | ECON | Unknown | Unavailable | + + +---------+ + Care Team Providers + +------+ + | Care Accordion Maker Name | Role | Phone | + +------+ + PCP | Unavailable | + +------+ + Encounter Details +--------+ + + + + | Date | Type | Department | Care Team | Description | +--------+ + + + + | 03/04/ | Ancillary | [facility] Faculty | | | | 2005 | Registratio | Practice [address] | | | | | n | [facility], | | | | | | [place] [address] | | | | | | [phone] | | | +--------+ + + + [...]
--- OUTSIDE RECORDS SUMMARY | ~2020-01-03 | XMS | Encounter Summary ---
Demographics + + + | Address | [address] | | | [place] [address] | + + + | Home Phone [...] Team Providers + +------+ + | Care Recording Engineer Name | Role | Phone | + +------+ + | Ana Maria Yuan MD | PCP | | + +------+ + Reason for Visit + + + | Reason | Comments | + + + | Follow-up | | + + + Encounter Details +--------+ + + + + | Date | Type | Department | Care Team | Description | +--------+ + + + + | 10/13/ | Virtual | [facility] [place] | ShawnsabrinabradenHans, | Bradycardia (Primary | | 2020 | Office | CARDIOLOGY [address] | Dx); Coronary | | | Visit | [place], | [place], | artery disease | | | | [place] [address] | [place] [address] | involving holy cross | | | | [phone] | [phone] | coronary artery of | | | | | | holy cross heart without | | | | | | angina pectoris; | | | | | | Essential | | | | | | hypertension; | | | | | | Congestive heart | | | | | | failure, unspecified | | | | | | HF chronicity, | | | | | | unspecified heart | | | | | | failure type (HCC); | | | | | | Pre-op testing | +--------+ + + + + Social [...] +---------+ + + | Blood Pressure | 155/91 | 10/14/2019 8:12 AM | | | | | PDT | | + +---------+ + + | Pulse | 65 | 10/14/2019 8:12 AM | | | | | PDT [...] of this encounter Patient Instructions Patient Instructions Eva Live RN - 10/14/2019 8:30 AM PDT You will need to be tested for COVID 19 no more than 72 hours before your procedure. Please utilize the [facility] drive thru in [place] at [address] 7:30AM on October 18. Unfortunately, [facility] is not offering pre-operati ve COVID testing. Procedure: Pacemaker Lead Revision Date: October 21 Check-In Time: 6:00 AM 1. Check-In at [facility]. 2. Do not eat or drink anything after midnight the night prior to the procedure. 3. Take all of your regular medications with a sip of water the morning of the procedure Precautions After Pacemaker Implantation After your pacemaker implantation, you will go home the same day. You will need someone to drive you home. This needs to be friend or family and a responsible adult. You may not us e taxi, dial a ride or public transportation. You will be asked to wear a sling on your arm for 2 days after the procedure. You should n ot lift that arm over 90 degrees (over your shoulder), or lift more than 10 pounds with that arm for 3 weeks. After 3 weeks you can return to your normal activity. This helps to prev ent movement of the pacemaker and lead(s) while it has time to heal in place. Daily care: ? Clean your pacemaker site gently with soap and water when you take a shower or bath. Pam ve the incision exposed to air. The exterior of your incision will have surgical "glue" to keep the incision in place, so there will not be a dressing. ? Inspect the skin around the incision. A slight bulge with mild tenderness, discoloration /bruising is expected, however call Cardiology if you feel more significant discomfort, swel ling, redness, discharge, or any other concerns. Take your medication, including those for pain, as prescribed. Even with a pacemaker, you still need the medication that your practitioner ordered. Wound Check: Nurse only - At [facility], 4th floor Cardiology Date: October 28 Check-in Time: 1:00 PM Initial/Next Device check will be in 3 months: Provider: Hans Blanco MD Date: JANUARY 21, 2020 Check-In Time: 2:45 PM documented in this encounter Progress Notes Hans Blanco MD - 10/14/2019 8:30 AM PDTFormatting of this note might be different f rom the original. Subjective: Patient ID: Wilmer Pinon is a [...] lightheaded. Energy level is poor. Remote pacemaker c key suggest atrial lead dislodgment. Chest x-ray from 10/09/2019 confirms atrial lead dislod gment. 2. Coronary artery disease involving holy cross coronary artery of holy cross heart without angina pectoris Today, he is asymptomatic. 3. Essential hypertension Today, his blood pressure is elevated. Clinical discussion length: 11-20 min (25127) Patient has not been seen in office [...] OC/thresh check. RESULTS- I reviewed reports from [facility]: Xr Chest Pa And Lateral Result Date: [...] | Visit | | MD [address] | | | | | | [place], | | | | | | [place] [address] | | | | | | [phone] | | | | | | | | +--------+---------+ + + + | 02/25/ | Office | Cardiology | Hans Blanco, | | | 2019 | Visit | | MD [address] | | | | | | [place], | | | | | | [place] [address] | | | | | | [phone] | | | | | | | | +--------+---------+ + + + documented as of this encounter Results Coronavirus (COVID-19) NAAT (10/16/2019 [...] + + | Performed at: 01 - [facility] [place] [address] , [place], [place] | REFERENCE LAB | | [id number] Surgical Appliance Fitter: Ervin Correa MD, Phone: [phone] | [facility] | + + + + + + + + | Performing | Address | City/State/Zipcode | Phone Number | | Organization | | | | + + + + + | REFERENCE LAB | [address] | [place], [place] | [phone] | | [facility] | [place] | [address] | | + + + + + documented in this encounter Visit Diagnoses + + | Diagnosis | + + | Bradycardia - Primary Other specified cardiac dysrhythmias | + + | Coronary artery disease involving holy cross coronary artery of holy cross heart without | | angina pectoris | + + | Essential hypertension Unspecified essential hypertension | + + | Congestive heart failure, unspecified HF chronicity, unspecified heart failure type | | (HCC) | + + | Pre-op testing Preoperative examination, unspecified | + + documented in this encounter
--- OUTSIDE RECORDS SUMMARY | ~2020-01-03 | XMS | Encounter Summary ---
Demographics + + + | Address | [address] | | | [place] [address] | + + + | Home Phone | | + + + | Preferred Language | Unknown | + + + | Marital Status | | + + + | Denominational Affiliation | 1077 | + + + | Race | Unknown | + + + | Ethnic Group | Unknown | + + + Author + + + | Author | [facility] | | | and [place] | + + + | Organization | [facility] | | | [...] Team Providers + +------+ + | Care Commodities Trader Name | Role | Phone | + +------+ + | Ana Maria Yuan MD | PCP | | + +------+ + Reason for Visit + + + | Reason | Comments | + + + | Follow-up | | + + + | Coronary Artery | | | Disease | | + + + Follow Up [...] | | aortocoronar | [address] | [address] | | | | | y bypass | [place], | [place], | | | | | graft Heart | [place] [address] | [place] [address] | | | | | failure, | Phone: | Phone: | | | | | unspecified | [phone] | [phone] | | | | | (HCC) | Fax: | Fax: | | | | | Ischemic | [phone] | [phone] | | | | | cardiomyopat | | | | | | | hy | | | | | | | Atherosclero | | | | | | | tic heart | | | | | | | disease of | | | | | | | quileute | | | | | | | [...] | | | | | | | CHF/ISRAEL | | | | | | | Procedures | | | | | | | FOLLOW UP | | | +--------+--------+ + + + + Encounter Details +--------+---------+ + + + | Date | Type | Department | Care Team | Description | +--------+---------+ + + + | 08/27/ | Office | [facility] | Hans Blanco, | CAD, multiple vessel | | 2020 | Visit | CARDIOLOGY [address] | [address] [facility] | (Primary Dx); | | | | [address] [place], | [place], | Cong[place] heart | | | | [place] [address] | [place] [address] | failure, unspecified | | | | [phone] | [phone] | HF chronicity, | | | | | | unspecified heart | | | | | | failure type (HCC) | +--------+---------+ + + + Social History [...] documented as of this encounter Progress Notes Hans Blanco MD - 08/28/2019 1:30 PM PDTFormatting of this note might be different f rom the original. PATIENT NAME: Wilmer Pinon : 1935: AGE: 83 y.o. PRIMARY CARE: Osbaldo Wood MD OUTPATIENT FOLLOW UP VISIT Date of Service: 08/28/2019 HISTORY OF PRESENT ILLNESS: Wilmer Pinon is a 83 y.o. male with a history of asymptomatic irreversible bradycardia , coronary artery disease, post CABG 1990,stage III chronic kidney disease, essential hype rtension and mixed hyperlipidemia. He is being seen today for follow up. He was last seen 07/31/2019 at which time patient was switched from furosemide to torsemide 10 mg twice a day and restarted on Crestor 20 mg once a day. He was also scheduled for stres s test and echocardiogram. Since that time, patient reports chest pain when going up the sta irs and walking over 100 hundred feet. He has taken nitroglycerin and that takes care of his chest pain. His leg swelling has improved with torsemide. Patient is physically inactive. P atient denies breathlessness. There is no palpitations, dizziness or lightheadedness. Patien t can sleep on one pillow at night [...] tablet by mouth Daily. 30 tablet 5 No current facility-administered medications for this visit. ALLERGIES Allergies Allergen Reactions Atorvastatin Other (See Comments) Other Hydrocodone Other (See Comments) "I go into spasms" Oxycodone Other (See Comments) "I go into spasms" Tramadol Other (See Comments) "I go into spasms" Tramadol Caused spasms and pt to be in hospital ROS Review of Systems Constitutional: Positive for malaise/fatigue. Respiratory: Positive for shortness of breath. Cardiovascular: Positive for chest pain and leg swelling. Negative for palpitations. Neurological: Positive for dizziness. Negative for weakness. Lightheaded = No OBJECTIVE: PHYSICAL EXAM BP 128/62 | Pulse 50 | Resp 16 | Ht 1.854 m (6' 1") | Wt 100.5 kg (221 lb 9 oz) | BMI 29.23 kg/m Physical Exam Constitutional: He is oriented to person, place, and time. He appears well-developed and we ll-nourished. Elderly male individual, arrives with his , no acute [...] no abdominal tenderness. Musculoskeletal: General: Edema (bilateral trace leg sweling) present. Neurological: He is alert and oriented to person, place, and time. Gait normal. Skin: Skin is warm and dry. No cyanosis. Nails show no clubbing. Psychiatric: He has a normal mood and affect. His mood appears not anxious. He does not exh ibit a depressed mood. LAB RESULTS reviewed during visit today primarily from [facility]: LIPID Lab Results Component Value Date CHOL 164 02/28/2015 TRIG 295 (A) 02/28/2015 HDL 29.2 (A) 02/28/2015 LDL 91 09/08/2014 CHOLHDL 5.6 (A) 02/28/2015 CHEMISTRY Lab Results Component Value Date GLU 138 (H) 07/31/2019 GLUEX 162 (A) 08/24/2019 NA 138 07/31/2019 NAEX 142 08/24/2019 K 3.4 07/31/2019 KEX 4.2 08/24/2019 CL 104 07/31/2019 CLEX 105 08/24/2019 CO2 26 07/31/2019 CO2EX 26 08/24/2019 CALCIUM 9.6 07/31/2019 ALKPHOS 50 03/08/2018 AST 20 03/08/2018 ASTEX 19 12/08/2018 ALT 12 03/08/2018 ALTEX 14 12/08/2018 BILITOT 0.9 03/08/2018 CREA 2.04 (H) 07/31/2019 BUN 28 (H) 07/31/2019 EGFR 52 (A) 02/28/2015 EGFREX 31 08/24/2019 CREEX 2.04 (A) 08/24/2019 HEMATOLOGY Lab Results Component Value Date WBC 6.7 07/31/2019 WBCEX 7.9 12/08/2018 HGB 11.5 (L) 07/31/2019 HGBEX 12.9 (A) 12/08/2018 HCT 34.7 (L) 07/31/2019 HCTEX 39.0 (A) 12/08/2018 PLT 216 07/31/2019 PLTEX 227 12/08/2018 Above data and testing is reviewed this [...] 08/25/2019 shows persantine EKG is negative, abnormal persantine ses tamibi myocardial perfusion imaging study with a medium size, fixed defect of a moderate sev erity in the inferobasal region, there is also a small sized, reversible defect of a mild se verity in the distal anterior wall, findings suggest 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 Overall, left ventricular systolic function is low norm al, LVEF by gated SPECT is 50%. D. Today, patient reports chest pain when going up the stairs and walking over 100 hundre d feet before he has to stop due to chest pain. He has taken nitroglycerin and that takes ca re of his chest pain. 2. Heart failure with preserved ejection fraction A. Echocardiogram 08/25/2019 shows mild to moderate biatrial dilatation, normal left ventri cular size with a mild concentric left ventricular hypertrophy, left ventricular size systol ic function is preserved, LVEF is 55%, grade 1 left ventricular diastolic dysfunction, mildl y thickened trileaflet aortic valve with adequate opening, mildly thickened mitral valve sug gesting myxomatous change with a mild central mitral valve regurgitation, mild tricuspid mark ve regurgitation, normal right-sided pressure, normal IVC with a normal respiratory collapse , when compared to echocardiogram on 03/09/2018, no significant changes. B. There is no signs and symptoms of overt congestive heart failure. He is in a class I o f [place] [employer] functional class. There is bilateral trace leg swelling on phy sical examination. 3. Bradycardia, irreversible, asymptomatic. A. Echocardiogram 03/09/2018 shows mild left atrial [...] no symptoms wer e reported. D. Today, his pulse is 50. 4. Hypertension A. Today, his blood pressure is well controlled. 5. Stage IV chronic kidney disease A. eGFR is 31 from 08/24/2019. 6. Inactivity A. Patient has not been physically active due to chest pain. 7. Hyperlipidemia A. Today, he is taking rosuvastatin 20 mg. 8. Medical non compliance. Not addressed today. A. had mentioned she fills his pill box, but he doesn't always take his medications. PLAN: 1. He will continue with current medical regimen. 2. I recommend mind awareness and yoga. 3. I recommend a therapeutic lifestyle change including walking 30 minutes a day, choosing healthy choices of diet and 7 hours of high quality sleep a night. 4. Follow-up in 6 months or sooner with concerns. I, Sissy Mcmullen, am acting as a scribe on behalf of, and in the presence of Hans feliciano MD. I have reviewed and edited this note. Sissy Mcmullen Toilet Attendant 08/28/2019 I, Hans Blanco MD, personally performed the services described in this documentation, as scribed in my presence and it is both accurate and complete. Sissy Mcmullen, Med Ass t 08/28/2019 1:34 PM Electronically signed by: Hans Blanco MD [facility] 08/28/2019 Portions of this chart may have been created with [employer] voice recognition software. Occasi onal wrong-word or sound-alike substitutions may have occurred due to the inherent clements itations of voice recognition software. Please read the chart carefully and recognize, using context, where these substitutions have occurred I attest that I performed the evaluation of this patient and documented the note but it was signed by clinical staff in error. Hans Blanco MD documented in this encounter Plan of Treatment +--------+---------+ + + + | Date | Type | Specialty | Care Team | Description | +--------+---------+ + + + | 01/20/ | Office | Cardiology | Hans Blanco, | | 2019 | Visit | | MD [address] | | | | | | [place], | | | | | | [place] [address] | | | | | | [phone] | | | | | | | | +--------+---------+ + + + | 02/25/ | Office | Cardiology | Hans Blanco, | | 2019 | Visit | | MD [address] | | | | | | [place], | | | | | | [place] [address] | | | | | | [phone] | | | | | | | | +--------+---------+ + + + documented as of this encounter Visit Diagnoses + + | Diagnosis | + + | CAD, multiple vessel - Primary Coronary atherosclerosis of unspecified type of | | vessel, quileute or graft | + + | Congestive heart failure, unspecified HF chronicity, unspecified heart failure type | | (HCC) | + + documented in this encounter
--- OUTSIDE RECORDS SUMMARY | ~2020-01-03 | XMS | Encounter Summary ---
Demographics + + + | Address | [address] [facility] | | | [place] [address] | + + + | Home Phone | | + + + | Preferred Language | Unknown | + + + | Marital Status | | + + + | Sikh Affiliation | 1077 | + + + | Race | Unknown | + + + | Ethnic Group | Unknown | + + + Author + + + | Author | [facility] | | | and [place] | + + + | Organization | [facility] | | | [...] Team Providers + +------+ + | Care Service Delivery Director Name | Role | Phone | + +------+ + | Osbaldo Wood MD | PCP | | + +------+ + Reason for Visit +--------+--------+ + | Reason | Onset | Comments | | | Date | | +--------+--------+ + | Other | 08/05/ | potassium dosage | | | 2020 | | +--------+--------+ + Encounter Details +--------+ + + + + | Date | Type | Department | Care Team | Description | +--------+ + + + + | 08/05/ | Telephone | [facility] [place] | Hans Blanco, | Other (potassium | | 2020 | | CARDIOLOGY [address] | dosage) | | | | [address], | [place], | | | | | [place] [address] | [place] [address] | | | | | [phone] | [phone] | | | | | | | [...] this encounter Miscellaneous Notes Telephone Encounter - Eva Live RN - 08/10/2019 1:52 PM Manuel is notified and agrees to plan ...........................................Eva Live RN, on 08/10/19 at 1:52 PM elephone Enco Michela Ervin RN - 08/10/2019 12:[address] Escobar, labs lo ok ok, no changes needed. Ok for patient to remain on OTC potassium. Attempted to contact Gui bynum, no answer, no voicemail ...........................................Andria Sahni, on 08/10/19 at 12:46 PM elephone Joselin - Michela Iglesias RN - 08/10/2019 11:09 AM PSTClarified with Rhona, patient is on OTC po tassium 99mg - one daily. Labs were done on 07-31-19. I will consult Dr Escobar to see if ther e is anything that we need to do or just add this to the medication list. .................. .........................Michela Iglesias RN, on 08/10/19 at 11:11 AM elephone Encounter - Anusha Damian RN - 08/07/2019 9:25 AM PSTAttempted to call home number, unable to leave message, no voicemail set up ..........................................Anusha mederos RN on 08/07/19 at 9:25 AM elephone Encount er - Michela Iglesias RN - 08/05/2019 12:27 PM SHELLYRhona called and left a message on my vo icemail. She stated that patient is on potassium 99mg daily. Attempted to contact her to clarify, no answer at home number, no voicemail set up ........ ...................................Michela Iglesias RN, on 08/05/19 at 12:28 PM Carmen in this encounter Plan of Treatment +--------+---------+ + + + | Date | Type | Specialty | Care Team | Description | +--------+---------+ + + + | 01/20/ | Office | Cardiology | Hans Blanco, | | 2019 | Visit | | MD [address] | | | | | | [place], | | | | | | [place] [address] | | | | | | [phone] | | | | | | | | +--------+---------+ + + + | 02/25/ | Office | Cardiology | Hans Blanco, | | 2019 | Visit | | MD [address] | | | | | | [place], | | | | | | [place] [address] | | | | | | [phone] | | | | | | | | +--------+---------+ + + + documented as of this encounter Visit Diagnoses Not on filedocumented in this encounter"
--- OUTSIDE RECORDS SUMMARY | ~2020-01-03 | XMS | Encounter Summary ---
Demographics + + + | Address | [address] [facility] [address] | | | [place] [address] | + + + | Home Phone | | + + + | Preferred Language | Unknown | + + + | Marital Status | | + + + | Bahai Affiliation | 1077 | + + + | Race | Unknown | + + + | Ethnic Group | Unknown | + + + Author + + + | Author | [facility] | | | and [place] | + + + | Organization | [facility] | | | [...] Team Providers + +------+ + | Care Refrigeration Systems Installer Name | Role | Phone | [...] | +--------+ + + + + | 10/18/ | Hospital | [facility] | Shawnbasiasauravn Basiashawn, | Bradycardia; | | 2020 | Encounter | MED CTR CV INTRA OP | MD [address] | Displacement of | | | | [address] | [address] [place], | atrial pacemaker | | | | [place], [place] | [place] [address] | leads, subsequent | | | | [address] | [phone] | encounter | | | | [phone] | | | +--------+ + + + [...] + + + | Blood Pressure | 157/79 | 10/19/2019 3:00 PM | | | | | PDT | | + + + + + | Pulse | 60 | 10/19/2019 3:30 PM | | | | | PDT | | + + + + + | Temperature | 35.7 C (96.3 F) | 10/19/2019 10:22 AM | | | | | PDT | | + + + + + | Respiratory Rate | 16 | 10/19/2019 3:00 PM | | | | | PDT | | + + + + + | Oxygen Saturation | 98% | 10/19/2019 3:30 PM | | | | | PDT [...] You can't be awakened Date Last Reviewed: 03/27/201619995799-5532 [employer]. [address] [place] [address], [place] [address]. All [facility] ts reserved. This information is not [...] 24 hours, or as directed by your healt hcare provider. Change your dressing if it [...] by your healthcare provider Date Last Reviewed: 05/10/201619998064-1645 [employer]. [address] [place] [address], [place] [address]. All righ ts reserved. This information is [...] at all times! Follow-up Appointment (Cardiology Clinic [phone]) ? Your follow-up wound check appointment will [...] Problems: It is important to keep your ordering box operator updated on any symptoms you may experience [...] dislod gment. 2. Coronary artery disease involving hoh coronary artery of hoh heart without angina pectoris Today, he is asymptomatic. 3. Essential hypertension Today, his blood pressure is elevated. Clinical discussion length: 11-20 min (81241) Patient has not been seen in office [...] OC/thresh check. RESULTS- I reviewed reports from [facility]: Xr Chest Pa And Lateral Result [...] | | 2019 | Visit | | [address] [place] [address] | | | | | | [place], | | | | | | [place] [address] | | | | | | [phone] | | | | | | | | +--------+---------+ + + + | 02/25/ | Office | Cardiology | Hans Blanco, | | | 2019 | Visit | | [address] [facility] | | | | | | [place], | | | | | | [place] [address] | | | | | | [phone] | | | | | | | [...] | | | | | LAVELLE SIMMONS ([id number]) on | | | | | | [...] | | | | | LAVELLE SIMMONS ([id number]) on | | | | | | [...] 83 y.o.MEDICAL RECORD NUMBER: | | | [id number] PRIMARY CARE:ROGER DumontURGEON:Hans | | | MD Francis DATE OF PROCEDURE: 10/19/2019 PROCEDURES | | | PERFORMED:1. Atrial lead repositioning INDICATIONS: 1. Atrial | | | lead dislodgment DESCRIPTION OF PROCEDURE: After informed consent was | | | obtained, the patient was taken to the sleep lab technician. 1 g of cefazolin | | | was given intravenously. Patient was hooked up to EKG, pulse | | | oximetry and blood pressure monitoring. All parameters were kept | | | stable during procedure. The [employer] pacemaker warehouse representative was | | | present in [...] moderate sedation with | | | continuous icdh-sa-zccr attendance. My intra-service time was 45 | [...] [employer], model #: 2272, serial #: [id number]. B. Atrial | | | lead: [employer], length 46 cm, model #: 8 TC, serial #: [id number]. | | | C. Ventricular lead: [employer], length 52 cm, model #: 8 TC, | | | serial #: [id number]. PACEMAKER TESTING: A. Atrial lead: Sensing 2 [...] of | | |moderate sedation with continuous cmef-ny-kwmi attendance. My | | |intra-service time was [...] [employer], model #: 2272, serial #: [id number]. | | | | | |B. Atrial lead: [employer], length 46 cm, model #: 8 TC, serial #: [id number] | | |[id number]. | | | | | |C. Ventricular lead: [employer], length 52 cm, model #: 8 TC, serial #: | | |[id number]. | | | | | |PACEMAKER TESTING: [...] | Diagnosis | + + | Bradycardia Other specified cardiac dysrhythmias | + + | Displacement of atrial [...]
--- OUTSIDE RECORDS SUMMARY | ~2020-01-03 | XMS | Encounter Summary ---
Demographics + + + | Address | [address] [facility] | | | [place] [address] | + + + | Home Phone | | + + + | Preferred Language | Unknown | + + + | Marital Status | Single | + + + | Restorationism Affiliation | UNK | + + + [...] Team Providers + +------+ + | Care Ramp Boss Name | Role | Phone | + +------+ + PCP | Unavailable | + +------+ + Encounter Details +--------+ + + + + | Date | Type | Department | Care Team | Description | +--------+ + + + + | 02/25/ | Results | | Other, Faculty | | | 2005 | Only | | [phone] | | +--------+ + + + + [...] | | | | | MNT) | [address] CLINICAL | | | | | | [...] ANA | [address] | [place] [address] | | | DERMATOPATHOLOGY | [address] | | | + + + + + documented in this encounter Visit Diagnoses Not on filedocumented in this encounter"
--- OUTSIDE RECORDS SUMMARY | ~2020-01-03 | XMS | Encounter Summary ---
Demographics + + + | Address | [address] [facility] | | | [place] [address] | + + + | Home Phone | | + + + | Preferred Language | Unknown | + + + | Marital Status | | + + + | Amish Affiliation | 1077 | + + + | Race | Unknown | + + + | Ethnic Group | Unknown | + + + Author + + + | Author | [facility] | | | and [place] | + + + | Organization | [facility] | | [...] Team Providers + +------+ + | Care Wind Turbine Electrical Engineer Name | Role | Phone | [...] | | | | | | | CO LASER | | | | | | [...] + + | 07/30/ | Hospital | [facility] | Sony Oconnell MD | | | 2015 | Encounter | MED CTR OR INTRA OP | [address] | | | | | [address] | [place], [place] | | | | | [place], [place] | [address] | | | | | [address] | [phone] | | | | | [phone] | | | +--------+ + + + [...] catheter or urethra (at tip of penis) 7788-7541 [employer]. [address] [place] [address]. All righ ts reserved. This information is [...] 07/30/2014 3:19 PM PSTdocumented in this encounter H&P Notes Sony Oconnell MD - 07/30/2014 11:42 AM PSTNo interval change in history and physical exam . ony Oconnell MD - 0 07/29/2014 5:07 PM PSTJamakenzie Pinon 1935 July 26, 2014 HISTORY This 78 year old male has obstructing prostate regrowth which failed to respond with 3 mauri h trial of finasteride late last year. Transurethral laser vaporization is planned. Risks of infection, bleeding, reduced urine control is discussed. Transurethral laser vaporization o f an estimated 30 g prostate was performed May 2011. Cystoscopy 03/22/14 visualized occ lusive left lobe regrowth and has bladder had grade 3/4 trabeculation with 3 additional sma ll dome diverticula. He voids every 1-2 hours day and night with occasional small volume urg e incontinence. Stream is slow with interruptions. Cardiology review with Dr. Mychal Real earlier this month increased his Lasix and disconti nued Plavix. Echocardiogram 06/30/14 reports ejection fraction 55-60%, severely dilated lef t atrium, mild aortic stenosis, mild mitral regurgitation. PMH Intolerance of enalapril, and allergic almonds. Medication: certrizine, allopurinol 300 mg, aspirin 81 mg, carvedilol 25 mg bid, isosorbid e dinitrate 30 mg bid, Lasix 80 mg bid, levothyroxin 75 mcg, lovastatin 40 mg, omeprazole 40 mg, potassium gluconate 595 mg bid, pramipexole 5 mg hs. Medical illness includes coronary artery disease with heart failure, renal insufficiency, h yperuricemia, history of diabetes, peripheral edema, restless leg syndrome. Surgery includes coronary bypass and angioplasty, lumbar decompression in 1955 and 1967, tr ansurethral laser vaporization of prostate, repair right quadriceps tendon 2011. He drinks 0-2 cups of coffee daily. No alcohol. ROS Moderate bilateral lower extremity edema. Dyspnea on exertion. Angina on exertion winter cially if he skips his isosorbide. No nocturnal dyspnea. EXAMINATION blood pressure 130/60, pulse 64 respiration 18, weight 246 pounds, height 6 foot 1 inch. Tall somewhat heavyset pleasant male. Her speech a normal gait. Neck without bruit. Lungs c lear to auscultation. Heart has regular rate without audible murmur. Abdomen soft and nonten judy without mass or hernia. Atrophic testes. Left varicocele. Uncircumcised penis without le rohini. Normal anal tone with 25 g smooth prostate. Both legs have mild woody edema. LABORATORY basic chemistry notable for glucose 141 on 07/15/14. CBC normal on 11/16/13. IMAGING Bladder scan residual was 67 cc on 06/22/14. ASSESSMENT 1. 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 Transurethral la ser vaporization planned. The patient will take carvedilol, isosorbide, Lasix, potassium, om eprazole the morning of surgery. Sony Oconnell, urology Cc: Dr. Gerson Galeanoectronically signed by Sony Oconnell MD at 07/29/2014 5:07 PM PSTdo cumented in this encounter Nursing Notes Bettina Quezada RN - 07/30/2014 1:34 PM PSTLMA out, on R/A documented in this encounter Miscellaneous Notes Op Note - Sony Oconnell MD - 07/30/2014 1:[address] [facility] Pt. Name/Age/: Wilmer Pinon 78 y.o. 1935 [facility]. Record Number: [id number] Date of admission: 07/30/2014 Date of Operation/Procedure: 07/30/2014 Preoperative Diagnosis: Recurrent obstructing prostate Post-Op Diagnosis Codes: * 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 symptoms (LUTS) [600.01] Postoperative Diagnosis: Same Surgeon: Sony Oconnell MD Developer Prover Mechanical(s): None Anesthesia Provider(s): Anesthesiologist: Crescencio Govea MD Anesthesia Type: General Procedure(s): Cyber Laser Vaporization of the Prostate Operative Indications: Wilmer Pinon is a 78 y.o. year old male who underwent laser va porization of an estimated 30 g prostate May 2011. Recurrent slow urine flow was evalu ated by cystoscopy March 2014 visualizing occlusive left lobe adenoma. Operative Findings: Grade 4 over 4 bladder trabeculation including several small diverticul a Operation: After induction of general anesthetic, SCD devices were applied to the calves. Legs are placed in lithotomy in Joshua stirrups. Genitalia were prepped and draped. A 23 Mohawk continuous-flow scope was introduced with visual obturator. Pendulous and bulb ar urethra were normal. Left lobe adenoma visually obstructed the lumen from verumontanum t o bladder neck. Cyber laser was used on [address]. Left lobe was vaporized from 5 through 12: 00. Charred debris was cleared. Hemostasis was confirmed. Ureteral orifices and the verum ontanum remained unaltered. Estimated Blood Loss: ,10 cc Transfused: no Drains: none Specimen (s): * No specimens in log * Complications: none Electronically Signed by: Sony Oconnell MD, 07/30/2014 13:24 [facility] documented in this enc ounter Plan of Treatment +--------+---------+ + + + | Date | Type | Specialty | Care Team | Description | +--------+---------+ + + + | 01/20/ | Office | Cardiology | Hans Blanco, | | | 2019 | Visit | | MD [address] | | | | | | [place], | | | | | | [place] [address] | | | | | | [phone] | | | | | | | | +--------+---------+ + + + | 02/25/ | Office | Cardiology | Hans Blanco, | | | 2019 | Visit | | [address] | | | | | | [place], | | | | | | [place] [address] | | | | | | [phone] | | | | | | | [...]
--- OUTSIDE RECORDS SUMMARY | ~2020-01-03 | XMS | Encounter Summary ---
Demographics + + + | Address | [address] [facility] [address] [facility] | | | [place]OMOT[place] [address] | + + + | Home Phone | | + + + | Preferred Language | Unknown | + + + | Marital Status | | + + + | Buddhism Affiliation | 1077 | + + + | Race | Unknown | + + + | Ethnic Group | Unknown | + + + Author + + + | Author | [facility] | | | and [place] | + + + | Organization | [facility] | | | [...] Team Providers + +------+ + | Care Voice Writing Reporter Name | Role | Phone | + +------+ + | Osbaldo Wood MD | PCP | | + +------+ + Encounter Details +--------+ + + + + | Date | Type | Department | Care Team | Description | +--------+ + + + + | 07/31/ | Hospital | [facility] | Hans Blanco, | | | 2019 | Encounter | MED CTR LABORATORY | [address] | | | | | [address] | [place], | | | | | [place] | [place] [address] | | | | | [address] | [phone] | | | | | [phone] | | | +--------+ + + + [...] | | | | | | [place] [address] | | | | | | [phone] | | | | | | | | +--------+---------+ + + + | 02/25/ | Office | Cardiology | Hans Blanco, | | | 2019 | Visit | | [address] | | | | | | [place], | | | | | | [place] [address] | | | | | | [phone] | | | | | | | | +--------+---------+ + + + documented as of this encounter Visit Diagnoses Not on filedocumented in this encounter"
--- OUTSIDE RECORDS SUMMARY | ~2020-01-03 | XMS | Encounter Summary ---
Demographics + + + | Address | [address] [facility] | | | [place] [address] | + + + | Home Phone [...] Team Providers + +------+ + | Care Bridge Attacher Name | Role | Phone | + [...] | | | | | | | MD LASER | | | | | | [...] + + | 07/30/ | Surgery | [facility] | Sony Oconnell MD | Cyber Laser | | 2015 | | MED CTR OR INTRA OP | [address] | Vaporization of the | | | | [address] | [place], [place] | Prostate | | | | [place], [place] | [address] | | | | | [address] | [phone] | | | | | [phone] | | | +--------+---------+ + + + [...] catheter or urethra (at tip of penis) 0965-0972 [employer]. [address] [place] [address], [place] [address]. All righ ts reserved. This information is [...] 0 | | | | SA (KAMBAR HETSER) | 3 times daily. | | | [...] Oconnell MD - 0 07/29/2014 5:07 PM PSTJames Pinon 1935 July 26, 2014 HISTORY This [...] Oconnell MD - 07/30/2014 1:23 PM [facility] Pt. Name/Age/: Wilmer Pinon 78 y.o. 1935 Med. Record Number: [id number] Date of admission: 07/30/2014 Date of Operation/Procedure: 07/30/2014 Preoperative Diagnosis: Recurrent obstructing prostate Post-Op Diagnosis Codes: * 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 symptoms (LUTS) [600.01] Postoperative Diagnosis: Same Surgeon: Sony Oconnell MD Distance Learning Administrator(s): None Anesthesia Provider(s): Anesthesiologist: Crescencio Govea MD [...] Genitalia were prepped and draped. A 23 Jamaican continuous-flow scope was introduced with visual obturator. [...] Signed by: Sony Oconnell MD, 07/30/2014 13:24 [facility] documented in this enc ounter Plan of Treatment +--------+---------+ + + + | Date | Type | Specialty | Care Team | Description | +--------+---------+ + + + | 01/20/ | Office | Cardiology | Hans Blanco, | | | 2019 | Visit | | [address] [facility] | | | | | | [place], | | | | | | [place] [address] | | | | | | [phone] | | | | | | | | +--------+---------+ + + + | 02/25/ | Office | Cardiology | Hans Blanco, | | | 2019 | Visit | | [address] | | | | | | [place], | | | | | | [place] [address] | | | | | | [phone] | | | | | | | [...] | | | | | PRE-OP, Starting Sat07/30/14 at | | AM PST | [...] | | | | | burning., Starting 07/30/14 at | | | | | | [...]
--- OUTSIDE RECORDS SUMMARY | ~2020-01-03 | XMS | Encounter Summary ---
Demographics + + + | Address | [address] [facility] [address] | | | [place] [address] | + + + | Home Phone | | + + + | Preferred Language | Unknown | + + + | Marital Status | | + + + | Holiness Affiliation | 1077 | + + + | Race | Unknown | + + + | Ethnic Group | Unknown | + + + Author + + + | Author | [facility] | | | and [place] | + + + | Organization | [facility] | | | [...] Team Providers + +------+ + | Care Truss Driver Helper Name | Role | Phone | + +------+ + | Osbaldo Wood MD | PCP | | + +------+ + Encounter Details +--------+ + + + + | Date | Type | Department | Care Team | Description | +--------+ + + + + | 11/16/ | Orders Only | [facility] | Dez Lora, | | | 2013 | | NEPRHOLOGY [place] | MANAGER IN TRAINING [address] | | | | | [address] | [address] [place], | | | | | [address] [place] | [place] [address] | | | | | [address] | [phone] | | | | | [phone] | | | +--------+ + + + [...] | | | | | | [place], | | | | | | [place] [address] | | | | | | [phone] | | | | | | | | +--------+---------+ + + + | 02/25/ | Office | Cardiology | Hans Blanco, | | | 2019 | Visit | | MD [address] | | | | | | [place], | | | | | | [place] [address] | | | | | | [phone] | | | | | | | | +--------+---------+ + + + documented as of this encounter Procedures + +--------+ + + + | Procedure Name | Priori | Date/Time | Associated Diagnosis | Comments | | | ty | | | | + +--------+ + + + | URINALYSIS WITH | Routin | 11/16/2013 | | Results for this | | MICROSCOPIC WITH | e | 12:00 AM | | procedure are in the | | CULTURE IF INDICATED | | PDT | | results section. | + +--------+ + + + | URIC ACID | Routin | 11/16/2013 | | Results for this | | | e | 12:00 AM | | procedure are in the | | | | PDT | | results section. | + +--------+ + + + | MAGNESIUM | Routin | 11/16/2013 | | Results for this | | | e | 12:00 AM | | procedure are in the | | | | PDT | | results section. | + +--------+ + + + documented in this encounter Results Urinalysis with Microscopic with Culture if Indicated (11/16/2013 12:00 AM PDT) + + + + [...] + + + | Spec Grav, | 1.007 | | EXTERNAL | | | Fluid | [...] + + + + | Total | Negative | | EXTERNAL | | | Protein | | | LAB | | + + + + + + | pH, Urine | 7 | | EXTERNAL | | | | [...] + + + | WBC, UA | | | EXTERNAL | | | | | | LAB | | + + + + + + | RBC, UA | | | EXTERNAL | | | | | | LAB | | + + + + + + | Epithelial | | | EXTERNAL | | | Cells | | | LAB | | + + + + + + | Bacteria, | | | EXTERNAL | | | UA [...] | + +---------+ + + Uric Acid (11/16/2013 12:00 AM PDT) + +-------+ + + + | Component | Value | Ref Range | Performed | Pathologist | | | | | At | Signature | + +-------+ + + + | Uric Acid | 6.1 | | EXTERNAL | | | | [...] | | + +---------+ + + Magnesium (11/16/2013 12:00 AM PDT) + +-------+ + + + | Component | Value | Ref Range | Performed | Pathologist | | | | | At | Signature | + +-------+ + + + | Magnesium | 1.5 | mg/dL | EXTERNAL | | | [...]
--- OUTSIDE RECORDS SUMMARY | ~2020-01-03 | XMS | Encounter Summary ---
Demographics + + + | Address | [address] [facility] | | | [place] [address] | + + + | Home Phone [...] Team Providers + +------+ + | Care Intermission Coordinator Name | Role | Phone | + +------+ + | Ana Maria Yuan MD | PCP | | + +------+ + Reason for Visit + + + | Reason | Comments | + + + | Device Check | Billed | | (Remote) | | + + + Encounter Details +--------+ + + + + | Date | Type | Department | Care Team | Description | +--------+ + + + + | 12/07/ | Implant | [facility] | Hans Blanco, | Remote Device | 2019 | Monitor | CARDIOLOGY [address] | Interrogation | | | | [place], [place], | (Primary Dx); | | | | [place] [address] | [place] [address] | Pacemaker, Dual | | | | [phone] | [phone] | Chamber, MRI | | | | [...] Sinoatrial node dysfunction (HCC)Date of Remote Interrogation: 2019 Refer to [facility] documentation and remote PDF scanned into EPIC for remote interrogation re sults. Data collected by Zaira Mcneil RN Presenting rhythm: Sinus rhythm, atrial sensed ventricular sensed with rate 71-81 beats. 2 mode switch episodes accounting for <1% of the time. The longest occurred 11/02/2019 at 9 :45 AM for 12 minutes 34 seconds. EGM is consistent with PSVT variable conduction with ventr icular pacing 80-112 beats. Episode from 11/02/2019 at 9:59 AM for 3 minutes 42 seconds is c onsistent wit atrial flutter variable conduction with ventricular pacing 80-120 beats. 0 ventricular high rate episodes. PVC singles 6,000 PVC singles 15,000/month PVC runs 8 PVC runs 20/month Histogram good. Battery longevity 5.8-6.3 years. Apparent normal and stable device function. Device interrogation due in office in December 2019. Notified Rhona. New onset atrial flutter, patient scheduled to be seen next week. This report occurred within the global period following implantation and therefore is not b illable. documented in this encounter Plan of Treatment +--------+---------+ + + + | Date | Type | Specialty | Care Team | Description | +--------+---------+ + + + | 01/20/ | Office | Cardiology | Hans Blanco, | | 2019 | Visit | | [address] [facility] | | | | | | [place], | | | | | | [place] [address] | | | | | | [phone] | | | | | | | | +--------+---------+ + + + | 02/25/ Office | Cardiology | Hans Blanco, | | | 2019 | Visit | | [address] | | | | | | [place], | | | | | | [place] [address] | | | | | | [phone] | | | | | | | | +--------+---------+ + + + documented as of this encounter Procedures + +--------+ + + + | Procedure Name | Priori | Date/Time | Associated Diagnosis | Comments | | | ty | | | | + +--------+ + + + | DEVICE | Routin | 12/08/2019 | Remote Device | Results for this | | INTERROGATION- | e | 11:59 PM | Interrogation | procedure are in the | | [...] this encounter Results Device Interrogation - Remote (12/08/2019 11:59 PM PDT) + + + | Narrative | Performed At | + + + | Hans | BRIAN | | MD Francis 12/03/2019 10:04 AMDate of Remote Interrogation: | | | 11/03/2019 Refer to [facility] documentation and remote PDF scanned into | | | [facility] for remote interrogation results. Data collected by Zaira Ayers | | | CASPER Mcneil Presenting rhythm: Sinus rhythm, atrial sensed ventricular | | | sensed with rate 71-81 beats. 2 mode switch episodes accounting for | | | <1% of the time. The longest occurred 11/02/2019 at 9:45 AM for 12 | | | minutes 34 seconds. EGM is consistent with PSVT variable conduction | | | with ventricular pacing 80-112 beats. Episode from 11/02/2019 at 9:59 | | | AM for 3 minutes 42 seconds is consistent wit atrial flutter variable | | | conduction with ventricular pacing 80-120 beats. 0 ventricular high | | | rate episodes. PVC singles 6,000 PVC singles | | | 15,000/monthPVC runs 8 PVC runs | | | 20/monthHistogram good. Battery longevity 5.8-6.3 years.Apparent | | | normal and stable device function.Device interrogation due in office | | | in December 2019.Notified Rhona. New onset atrial flutter, patient | | | scheduled to be seen next week. This report occurred within the global | | | period following implantation and therefore is not billable. | | |Histogram good. Battery longevity 5.8-6.3 years. | | |Apparent normal and stable device function. | | |Device interrogation due in office in December 2019. | | |Notified Rhona. New onset atrial flutter, patient scheduled to | | |be seen next week. | | |This report occurred within the global period following | | |implantation and therefore is not billable. | | | | | | | | | | | + + + + +---------+ + + | Performing | Address | City/State[facility] | Phone Number | | Organization | | | | + +---------+ + + | [facility] | | | | + +---------+ + + documented in this encounter Visit Diagnoses + + | Diagnosis | + + | Remote Device Interrogation - Primary Fitting and adjustment of cardiac pacemaker | + + | Pacemaker, Dual Chamber, MRI Capable, [employer] 10/02/2019 Francis Cardiac pacemaker | | in situ | + + | Sinoatrial node dysfuntion - bradycardia Sinoatrial node dysfunction | + + documented in this encounter"
--- OUTSIDE RECORDS SUMMARY | ~2020-01-03 | XMS | Encounter Summary ---
Demographics + + + | Address | [address] | | | [place] [address] | + + + | Home Phone | | + + + | Preferred Language | Unknown | + + + | Marital Status | | + + + | Roman Catholic Affiliation | 1077 | + + + | Race | Unknown | + + + | Ethnic Group | Unknown | + + + Author + + + | Author | [facility] | | | and [place] | + + + | Organization | [facility] | | | [...] Team Providers + +------+ + | Care Spinner Box Name | Role | Phone | + +------+ + | Ana Maria Yuan MD | PCP | | + +------+ + Encounter Details +--------+---------+ + + + | Date | Type | Department | Care Team | Description | +--------+---------+ + + + | 10/01/ | Surgery | [facility] | Hans Blanco, | CV EP PPM SYSTEM | | 2019 | | MED CTR CV INTRA OP | MD [address] | IMPLANT | | | | [address] | [place], | | | | | [place] | [place] [address] | | | | | [address] | [phone] | | | | | [phone] | | | +--------+---------+ + + + [...] + + + | Blood Pressure | 140/80 | 10/02/2019 4:45 PM | | | | | PDT | | + + + + + | Pulse | 60 | 10/02/2019 4:45 PM | | | | | PDT | | + + + + + | Temperature | 36 C (96.8 F) | 10/02/2019 4:25 PM | | | | | PDT | | + + + + + | Respiratory Rate | 15 | 10/02/2019 4:45 PM | | | | | PDT | | + + + + + | Oxygen Saturation | 99% | 10/02/2019 4:45 PM | | | | | PDT | | + + + + + | Inhaled Oxygen | - | - | | | Concentration | | | | + + + + + | Weight | 97.3 kg (214 lb 8.1 | 10/02/2019 2:00 PM | | | | oz) | [...] x 3 - 1990 Restless leg syndrome Bradycardia Consultants: Dr. Escobar Procedures: S/p dual chamber pacemaker implantation on 10/01 Reason for Admission and hospital course: Please refer to the H&P for full details. In short, 83 y.o. male with a history of CAD/TUR P/hypothyroid who was transfer from [facility] ED due to syncope/bradycardia. Prior to tra [...] Specialty: Internal Medicine Contact information: [address] [place] [address] [place] [id number] Discharge Medications Unchanged Medications Details [...] by: Alpa Wright MD, 10/03/2019 10:37 AM [facility] documented in this en counter Discharge [...] do, you may have restrictions until your emg technician clears you for unrestricted activity. You can [...] are those made by radio transmitting to wers, "Senstore" radios, and heavy-duty electrical equipment. Don't lean over the open franco of a running car. A running engine creates an electrical f ield. Most household and yard appliances will not cause any problems. If you use any large p ower tools, such as an industrial research support specialist, talk with your doctor. Follow-up care See your emg technician in the next 7 to 10 days. [...] pacemaker is capable of remot e monitoring. [id number] Call 911 if you have: Chest pain [...] under the s kin Date Last Reviewed: 11/09/201519999025-3930 [employer]. [address] [place] [address]. All righ ts reserved. This information is [...] get worse New symptoms Date Last Reviewed: 10/09/201519992835-7908 [employer]. [address] [place] [address], [place] [address]. All righ ts reserved. This information is [...] might be different from t rani original. [place], [place] HOSPITALIST HISTORY & PHYSICAL Patient: Wilmer Pinon : 1935: Age: 83 y.o. MedRec: [id number] Admission date: 10/02/2019 Hospital day # : [...] of CAD/TURP/hypothyroid , presented on , to [facility] ED, At 10:30 AM indicated arm flailing, [...] CR 1.9 CT head was performed at [facility] due to indicating grand mal seizure despite no seizure history After arrival to [facility] ICU, pacer was immediately placed, w/ subsequent [...] Procedure Component Value Units Date/Time Culture, MRSA [[id number]] Collected: 10/02/19 1700 Order Status: Sent Lab [...] by: Archana Morales MD 10/02/2019 6:36 PM [facility] hospital time exceeds 70 minutes with 1/2 spent on face to face time for assessment and plan and coordinating care -Medical Decision Maker Patient. Assessment and Plan were discussed with patient -[facility] Documentation I expect this patient will be [...] and mixed hyperlipidemia. He was admitted to [facility] on 10/02/2019 for bradycardia. He was [...] was 35 bpm when he arrives to [facility]. There is no chest pain [...] file Gets together: Not on file Attends congregation service: Not on file Active member of [...] passed out. He was then admitted to [facility] with profound bradycardia and his carvedilol [...] His pulse was 35 bpm when h tammy arrives to [facility]. There is no signs and symptoms of overt congestive heart failure. He is in a class I of [place] [employer] functional class. There is no [...] He is in a class I of [place] [employer] functional class. There is bilateral [...] reviewed and edited this note. Sissy Mcmullen, Analytics Associate 10/02/2019 I, Hans Blanco MD, personally performed the services described in this documentation, as scribed in my presence and it is both accurate and complete. Sissy Mcmullen, Analytics Associate 2:35 PM Thank you for including me in the care of this patient. Electronically signed by: Hans Blanco MD [facility] 10/02/2019 documented in this encounter Miscellaneous Notes [...] is Dr. Yuan and he uses the [facility] pharmacy and mail order pharmac y. Mr. Pinon denies any discharge needs and declines HH services at this time. His will t ransport him home when he is medically stable for discharge. Plan: Home with , no anticipated needs. Electronically signed by: Lupe Concepcion RN 10/03/2019 12:50 PM lan of Pat Ariza RN - 10/03/2019 10:50 AM PDTJicarmelo ambulates to the door with a cane. [...] - 10/02/2019 3:19 PM PDTAdmitted to room 456 at 1400. HR mos tly in 40's, briefly in high 30's. Pt asymptomatic. External pacer pads in place, on standb y. To lab tester at 1445 d ocumented in this encounter [...] | | | | | | [place] [address] | | | | | | [phone] | | | | | | | | +--------+---------+ + + + | 02/25/ | Office | Cardiology | Hans Blanco, | | | 2019 | Visit | | MD [address] | | | | | | [place], | | | | | | [place] [address] | | | | | | [phone] | | | | | | | [...] | 0.00 | 0.00 - 0.01 | [facility] | | | nRBC | | K/uL [...] [address] | [place] | [phone] | | [facility] | | [address] | | | - LABORATORY | | | | + + + + + Magnesium (10/03/2019 3:52 AM PDT) + +-------+ + + + | Component | Value | Ref Range | Performed | Pathologist | | | | | At | Signature | + +-------+ + + + | Magnesium | 2.0 | 1.6 - 2.6 mg/dL | [facility] | | | [...] [address] | [place] | [phone] | | [facility] | | [address] | | | - LABORATORY | | [...] not | 39 (L)Comment: | >=60 | [facility] | | | | GLOMERULAR FILTRATION | mL/min/1.73m2 | [facility] | | | MAURITIAN | RATE,ESTIMATED | | MEDICAL | | | | mL/min/1.82k9Cdse than | | CENTER - | | [...] | | | | | mg/dL | [facility] | | | | | | MEDICAL | | | | | | CENTER - | | | | | | LABORATORY | | + + + + + + | BUN/Creatin | 13.1 | | [facility] | | | ine Ratio | | | [facility] | | | [...] ST. | [address] | [place] | [phone] | | [facility] | | [address] | | | - LABORATORY | | [...] | | | | | | [employer] | | | | | [...] [address] | [place] | [phone] | | [facility] | | [address] | | | - LABORATORY | | [...] | | Time | | seconds | [facility] | | | | | | MEDICAL | | | | | | CENTER - | | | | | | LABORATORY | | + + + + + + | INR | 1.1Comment: Usual Oral | 0.9 - 1.1 | [facility] | | | | Anticoagulation Range: | | [facility] | | | | 2.0 - 3.0High [...] [address] | [place] | [phone] | | [facility] | | [address] | | | - LABORATORY | | | | + + + + + Magnesium (10/02/2019 5:04 PM PDT) + +-------+ + + + | Component | Value | Ref Range | Performed | Pathologist | | | | | At | Signature | + +-------+ + + + | Magnesium | 1.8 | 1.6 - 2.6 mg/dL | [facility] | | | | [...] [address] | [place] | [phone] | | [facility] | | [address] | | | - LABORATORY | | [...] | | | | mmol/L | [facility] | | | | | | MEDICAL [...] (H) | 9 - 23 mg/dL | [facility] | | | | | | [facility] | | | | | | MEDICAL | | | | | | CENTER - | | | | | | LABORATORY | | + + + + + + | Creatinine | 1.73 (H) | 0.70 - 1.30 | [facility] | | | | | mg/dL | [facility] | | | | | | MEDICAL | | | | | | CENTER - | | | | | | LABORATORY | | + + + + + + | eGFR if not | 38 (L)Comment: | >=60 | [facility] | | | | GLOMERULAR FILTRATION | mL/min/1.73m2 | [facility] | | | MAURITIAN | RATE,ESTIMATED | | MEDICAL | | | | mL/min/1.86q4Ipyg than | | CENTER - | | [...] + | [facility] | [address] | [place] | [phone] | | [facility] | | [address] | | | - LABORATORY | | [...] | | | Comment:Reference | | [facility] | | | | Ranges: 0.00-0.06 = [...] | | | | | | [employer] | | | | | [...] [address] | [place] | [phone] | | [facility] | | [address] | | | - LABORATORY | | [...] | | chromogenic agar method. | | [facility] | | | [...] [address] | [place] | [phone] | | [facility] | | [address] | | | - LABORATORY | | [...] | | | | | LAVELLE SIMMONS ([id number]) on | | | | | | [...] by | | | | | | CLIVE SIMMONS, LAVELLE ([id number]) | | | | | | on [...] 83 y.o.MEDICAL RECORD NUMBER: | | | [id number] PRIMARY CARE:PHILIPPE Dumont:Hans | | | MD Francis DATE OF [...] The [employer] | | | pacemaker bilingual call center representative was present in the operating room. [...] the | | | pocket. A 6 Tongan sheath was placed over the guidewire and the core | | | was removed. The additional guidewires were inserted through the | | | sheath. The sheath was then removed. The guidewires were secured | | | by hemostat, leaving one guidewire to be utilized for placement of an | | | 8 Tongan safe sheath. A safe sheath core and [...] same technique as mentioned above, another 8 Tongan safe | | | sheath was utilized [...] | administration of moderate sedation with continuous cpho-wu-nshx | | | attendance. My intra-service time [...] | model #: PM 2272, serial #: [id number]. B. Atrial lead: [employer], | | | length 46 cm, model #: 2088 TC, serial #: [id number]. C. Ventricular | | | lead: [employer], length 52 cm, model #: 2088 TC, serial #: [id number]. | | | PACEMAKER TESTING: A. Atrial [...] of | | |moderate sedation with continuous fxlv-zx-nvnd attendance. My | | |intra-service time was [...] Yeison, model #: PM 2272, serial #: [id number]. | | | | | |B. Atrial lead: [employer], length 46 cm, model #: 2088 TC, serial #: [id number] | | |[id number]. | | | | | |C. Ventricular lead: [employer], length 52 cm, model #: 2088 TC, serial #: | | |[id number]. | | | | | |PACEMAKER TESTING: [...] | Procedure Note | + + | Hnas Blanco MD - 10/02/2019 4:06 PM PDT [...] patient was | | taken to the lab tester. 1 g of cefazolin was given intravenously. Patient was hooked | | up to EKG, pulse oximetry and blood pressure monitoring. All parameters were kept | | stable during procedure. The [employer] pacemaker bilingual call center representative was present in the | | [...] pulled through into the pocket. A 6 Tongan sheath was placed over the | | guidewire and the core was removed. The additional guidewires were inserted through the | | sheath. The sheath was then removed. The guidewires were secured by hemostat, leaving | | one guidewire to be utilized for placement of an 8 Tongan safe sheath. A safe sheath | | [...] same technique as mentioned above, another 8 Tongan safe | | sheath was utilized to [...] of | | moderate sedation with continuous mszn-lj-vsax attendance. My intra-service time was 45 | [...] Yeison, model #: PM 2272, serial #: [id number].B. Atrial lead: [employer], length 46 cm, model | | #: 2088 TC, serial #: [id number].C. Ventricular lead: [employer], length 52 cm, model #: | | 2088 TC, serial #: [id number].PACEMAKER TESTING: A. Atrial lead: Sensing 1.4 mV, [...] | | | | LAVELLE DUFFY MD ([id number]) | | | | | | on [...] specified cardiac dysrhythmias | + + | Alfaro-Mendenhall syncope Conduction [...] 10:00 | | | | | on 10/03/19 at 0900 | | AM [...] fentaNYL (PF) injection ONCE | Given | 10/02/19 | 25 mcg | | | | PRN, Starting Sat10/02/19 at | | 20 3:31 | | | | | 1523, Intra-op | | PM PDT | | | | + +-------+ +--------+---+---+ +-------+ +--------+---+---+ | Given | 10/02/19 | 25 mcg | | | | | 20 3:27 | | | | | | PM PDT | | | | +-------+ +--------+---+---+ | Given | 10/02/19 | 25 mcg | | | | | 20 3:25 | | | | | | PM [...] | | +---+---+ + +-------+ +--------+---+---+ | iohexol (OMNIPAQUE 350) 350 | Given | 10/02/19 | 20 mLs | | | | mg/mL injection ONCE PRN, | | 20 3:26 | | | | | Starting 10/02/19 at 1526, | | PM PDT | | | | | Intra-op | [...] | | | | | modification) on 10/02/19 at | | | | | [...] | | +---+---+ + +-------+ +--------+---+---+ | lidocaine 1% 30 mL in | Given | 10/02/19 | 30 mLs | | | | bupivacaine (PF) (MARCAINE) 0.5% | | 20 3:28 | | | | | 30 mL Optesia Mixture ONCE PRN, | | PM PDT | | | | | Starting 10/02/19 at 1528, | | | | | | | Intra-op | | | | | | + +-------+ +--------+---+---+ +---+---+ | | | +---+---+ + +-------+ +-------+---+---+ | lidocaine buffered 0.9% | Given | 10/02/19 | 9 mLs | | | | injection ONCE PRN, Starting Fri | | 20 3:24 | | | | | 10/02/19 at 1524, Intra-op | | PM PDT | | | [...] | | +---+---+ + +-------+ +--------+---+---+ | midazolam (VERSED) 1 mg/mL | Given | 10/02/19 | 0.5 mg | | | | injection ONCE PRN, Starting Sat | | 20 3:31 | | | | | 10/02/19 at 1523, Intra-op | | PM PDT | | | | + +-------+ +--------+---+---+ +-------+ +--------+---+---+ | Given | 10/02/19 | 0.5 mg | | | | | 20 3:24 | | | | | | PM PDT | | | | +-------+ +--------+---+---+ | Given | 10/02/19 | 1 mg | | | | | 20 3:23 | | | | | | PM [...] AM PDT | | | | | 10/02/19 at 1445, Indication: | | | | [...] PM PDT | | | | | 10/02/19 at 1445, For | | | | [...]
--- OUTSIDE RECORDS SUMMARY | ~2020-01-03 | XMS | Encounter Summary ---
Demographics + + + | Address | [address] | | | [place] [address] | + + + | Home Phone | | + + + | Preferred Language | Unknown | + + + | Marital Status | | + + + | Mosque Affiliation | 1077 | + + + | Race | Unknown | + + + | Ethnic Group | Unknown | + + + Author + + + | Author | [facility] | | | and [place] | + + + | Organization | [facility] | | | [...] Team Providers + +------+ + | Care Coffee Shop Attendant Name | Role | Phone | + [...] multiple | [address] | | | | | vessel | [address] | [place], | | | | | Ischemic | [place], | [place] | | | | | cardiomyopat | [place] [address] | [address] | | | | | hy | Phone: | Phone: | | | | | Congestive | [phone] | [phone] | | | | | heart | Fax: | Fax: | | | | | failure, | [phone] | [phone] | | | | | unspecified | [...] | Radiology | Diagnoses | Francis, | Mc Echo | | | | | CAD, | MD Callie | [address] | | | | | multiple | [address] | [place], | | | | | vessel | [address] | [place] | | | | | Ischemic | [place], | [address] | | | | | cardiomyopat | [place] [address] | Phone: | | | | | hy | Phone: | [phone] | | | | | Congestive | [phone] | Fax: | | | | | heart | Fax: | [phone] | | | | | failure, | [phone] | | | | | | unspecified | | | | | | | HF | | | | | | | chronicity, | | | | | | | unspecified | | | | | | | heart | | | | | | | failure type | | | | | | | ([facility]) | | | | | | | [...] Callie | | | | | rest ([facility]) | [address] | [address] [place] [address] | | | | | Procedures | [address] | [address] | | | | | FUP - LAST | [place], | [place], | | | | | SEEN | [place] [address] | [place] [address] | | | | | 04-11-2018 | Phone: | Phone: | | | | | SUW | [phone] | [phone] | | | | | | Fax: | Fax: | | | | | | [phone] | [phone] | +--------+--------+ + + + + Encounter Details +--------+---------+ + + + | Date | Type | Department | Care Team | Description | +--------+---------+ + + + | 07/31/ | Office | [facility] | Callie Blanco, | Symptomatic | | 2020 | Visit | CARDIOLOGY [address] | [address] | bradycardia (Primary | | | | [address] [place], | [place], | Dx); CAD, multiple | | | | [place] [address] | [place] [address] | vessel; Ischemic | | | | [phone] | [phone] | cardiomyopathy - | | | | [...] | | | S/P CABG x - 1990 | +--------+---------+ + + + Social [...] for labs: [facility]- [address] [place] [address]. Check blood pressure and pulse twice daily [...] as good. His energy level is poor. H tammy has shortness of breath on little exertion. [...] RESULTS reviewed during visit today primarily from [facility]: LIPID Lab Results Component Value Date CHOL [...] He is in a class II of [employer] functi onal class. There is [...] 9. Follow-up in 4 to 6 weeks. ISissy, am acting as a scribe on behalf of, and in the presence of Callie feliciano MD. I have reviewed and edited this note. Sissy Mcmullen, Residential Property Consultant 07/31/2019 I, Callie Blanco MD, personally performed the services described in this documentation, as scribed in my presence and it is both accurate and complete. Sissy Mcmullen, Med Ass t 07/31/2019 1:59 PM Electronically signed by: Callie Blanco MD [facility] 07/31/2019 Portions of this chart may have been created with [employer] voice recognition software. Occasi onal wrong-word or [...] | | | | | | [place] [address] | | | | | | [phone] | | | | | | | | +--------+---------+ + + + | 02/25/ | Office | Cardiology | Callie Blanco, | | | 2019 | Visit | | MD [address] | | | | | | [place], | | | | | | [place] [address] | | | | | | [phone] | | | | | | | [...] | | | | | | n [place] | | | | | + +--------+ [...] | | Cells | | | [facility] | | | | | | MEDICAL | | | | | | CENTER - | | | | | | LABORATORY | | + + + + + + | Red Blood | 3.56 (L) | 4.30 - 5.70 | [facility] | | | Cells | | M/uL | [facility] | [...] | | Immature | | K/uL | [facility] | | | Granulocyte | | | MEDICAL | | | s | | | CENTER - | | | | | | LABORATORY | | + + + + + + | % nRBC | 0 | 0 - 2 per 100 | [facility] | | | | | WBCs | [facility] | | | | [...] | [facility] | [address] | [place] | [phone] | | [facility] | | [address] | | | - LABORATORY | | [...] mL/min/1.73m2 | [facility] | | | [place] | RATE,ESTIMATED | | MEDICAL | | | | mL/min/1.98m2Jsfl than | | CENTER - | | [...] + | [facility] | [address] | [place] | [phone] | | [facility] | | [address] | | | - LABORATORY | | [...] | | | | uIU/mL | [facility] | | | | | [...] [address] | [place] | [phone] | | [facility] | | [address] | | | - LABORATORY | | [...] method in use as of | | [facility] | | | | August [...] [address] | [facility] [place] | [phone] | | [facility] | | [address] | | | - LABORATORY | | [...] MD | | | | | | ([id number]) on 07/31/2019 | | | | | [...] Coronary atherosclerosis of unspecified type of vessel, [place] | | or graft | + + [...]
--- OUTSIDE RECORDS SUMMARY | ~2020-01-03 | XMS | Encounter Summary ---
Demographics + + + | Address | [address] [facility] [address] [facility] | | | [place] [address] | + + + | Home Phone | | + + + | Preferred Language | Unknown | + + + | Marital Status | | + + + | Oriental Orthodox Affiliation | 1077 | + + + | Race | Unknown | + + + | Ethnic Group | Unknown | + + + Author + + + | Author | [facility] | | | and [place] | + + + | Organization | [facility] | | [...] Team Providers + +------+ + | Care Roads Superintendent Name | Role | Phone | + +------+ + | Osbaldo Wood MD | PCP | | + +------+ + Encounter Details +--------+ + + + + | Date | Type | Department | Care Team | Description | +--------+ + + + + | 04/14/ | Abstract | [facility] | Provider, | | | 2018 | | CARDIOLOGY [address] | MD [address] | | | | | [place], | [place] | | | | | [facility] [address] | [place] [address] | | | | | [phone] | | | +--------+ + + + [...] | | | | | | [place] [address] | | | | | | [phone] | | | | | | | | +--------+---------+ + + + | 02/25/ | Office | Cardiology | Hans Blanco, | | | 2019 | Visit | | [address] | | | | | | [place], | | | | | | [place] [address] | | | | | | [phone] | | | | | | | [...] +--------+ + + + | EXTERNAL LAB: RAHUL | Routin | 12/08/2018 | | Results [...] +--------+ + + + | EXTERNAL LAB: ALT | Routin | 12/08/2018 | | Results [...] | EXTERNAL LAB: CBC | Routin | 12/08/2018 | | Results for this | | | e | | | procedure are in the | | | | | | results section. | + +--------+ + + + | EXTERNAL LAB: CBC | Routin | 12/08/2018 | | Results for this | | | e | | | procedure are in the | | | | | | results section. | + +--------+ + + + | EXTERNAL LAB: TSH | Routin | 12/08/2018 | | Results for this | | | e | | | procedure are in the | | | | | | results section. | + +--------+ + + + | EXTERNAL LAB: EGFR | Routin | 12/08/2018 | | Results [...] +--------+ + + + | BUN, | 44 (A) | 6 - 23 [...]
--- OUTSIDE RECORDS SUMMARY | ~2020-01-03 | XMS | Encounter Summary ---
Demographics + + + | Address | [address] [facility] [facility] | | | [place] [address] | + + + | Home Phone | | + + + | Preferred Language | Unknown | + + + | Marital Status | | + + + | Taoism Affiliation | 1077 | + + + | Race | Unknown | + + + | Ethnic Group | Unknown | + + + Author + + + | Author | [facility] | | | and [place] | + + + | Organization | [facility] | | [...] Team Providers + +------+ + | Care Ophthalmologist Retina Specialist Name | Role | Phone | [...] Description | +--------+--------+ + + + | 10/30/ | Refill | [facility] [place] | Hans Blanco, | Medication Refill | | 2020 | | CARDIOLOGY [address] | MD [address] [place] | | | | | [place], | [place], | | | | | [place] [address] | [place] [address] | | | | | [phone] | [phone] | | | | | | | [...] [place], | | | | | | [place] [address] | | | | | | [phone] | | | | | | | | +--------+---------+ + + + | 02/25/ | Office | Cardiology | Hans Blanco, | | | 2019 | Visit | | MD [address] | | | | | | [place], | | | | | | [place] [address] | | | | | | [phone] | | | | | | | | +--------+---------+ + + + documented as of this encounter Visit Diagnoses Not on filedocumented in this encounter"
--- OUTSIDE RECORDS SUMMARY | ~2020-01-03 | XMS | Encounter Summary ---
Demographics + + + | Address | [address] [facility] [facility] [address] | | | [place] [address] | + + + | Home Phone | | + + + | Preferred Language | Unknown | + + + | Marital Status | | + + + | Cheondoism Affiliation | 1077 | + + + [...] Team Providers + +------+ + | Care Electrical Test Technician Name | Role | Phone | + +------+ + | Ana Maria Yuan MD | PCP | | + +------+ + Reason for Visit + + + | Reason | Comments | + + + | Device Check | Possible atrial lead dislodgement | | (In-office) | | + + + Follow Up [...] | | aortocoronar | [address] | [address] 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, | (Primary Dx); | | | | [place] [id number] | [place] [id number] | Pacemaker, Dual | | | | [phone] | [phone] | Chamber, MRI | | | | [...] documented as of this encounter Progress Notes Lawanda Turcios RN - 10/13/2019 1:00 PM PDTPatient was seen following his Xray today. Devic e was not checked as we could confirm atrial lead is displaced. Patient will have a virtual visit tomorrow with Hans Blanco MD to discuss plan of care. Electronically signed by: Lawanda Turcios RN 10/13/2019 1:46 PM 3: 01 PM PDTdocumented in this encounter Plan of Treatment +--------+---------+ + + + | Date | Type | Specialty | Care Team | Description | +--------+---------+ + + + | 01/20/ | Office | Cardiology | Hans Blanco, | | | 2019 | Visit | | MD [address] | | | | | | [place], | | | | | | [place] [id number] | | | | | | [phone] | | | | | | | | +--------+---------+ + + + | 02/25/ | Office | Cardiology | ShawncarlasamBasiashawn, | | | 2019 | Visit | | [address] | | | | | | [place], | | | | | | [place] [id number] | | | | | | [phone] | | | | | | | | +--------+---------+ + + + documented as of this encounter Visit Diagnoses + + | Diagnosis | + + | Pacemaker reprogramming/check - Primary Fitting and adjustment of cardiac pacemaker | + + | Pacemaker, Dual Chamber, MRI Capable, St Yesion 10/02/2019 Shawnbasiabraden Cardiac pacemaker | | in situ | + + | Sinoatrial node dysfuntion - bradycardia Sinoatrial node dysfunction | + + documented in this encounter"
--- OUTSIDE RECORDS SUMMARY | ~2020-01-03 | XMS | Clinical Summary ---
Demographics + + + | Address | [address] | | | [place] [address] | + + + | Home Phone [...] Team Providers + +------+ + | Care Glycerin Supervisor Name | Role | Phone | + +------+ + | David Yuan MD | PCP | | + +------+ + Allergies + + + + + + | Active Allergy | Reactions | Severity | Noted | Comments | | | | | Date | | + + + + + + | Atorvastatin | Myalgia | Low | 11/11/19 | | | | | | 13 | [...] | | + + + +---------+------+------+-------+ | allopurinol [...] e | + + + +---------+------+------+-------+ | lisinopril [...] | | | + + + +---------+------+------+-------+ +---+ + | | Additional | | | InformationPatient | | | taking differently: | | | 10 mg Oral DAILY, | | | Patient takes 1/2 | | | tablet., Reported on | | | 12/10/2019 3:20 PM | +---+ + + + +--------+----+------+------+-------+ | potassium 99 mg | Take 1 tablet by | | 0 | 03/0 | | Activ | | tablet | mouth Daily. | | | 220 | | e | | | | | | 20 | | | + + +--------+----+------+------+-------+ | amLODIPine | TAKE ONE TABLET BY | 90 | 3 | 05/2 | | Activ | | (NORVASC) 5 mg | MOUTH EVERY DAY | tablet | | 6/20 | | e | | tablet | | | | 20 | | | + + +--------+----+------+------+-------+ | ranolazine | Take 1 tablet by | 60 | 5 | 07/0 | | Activ | | (RANEXA) 500 mg 12 | mouth 2 times daily. | tablet | | 2/20 | | e | | hr tablet | | | | 20 | | | + + +--------+----+------+------+-------+ | rosuvastatin | Take 1 tablet by | 30 | 5 | 07/0 | | Activ | | (CRESTOR) 40 MG | mouth nightly. | tablet | | 2/20 | | e | | tabletIndications: | | | | 20 | | | | CAD, multiple vessel | | | | | | | + + +--------+----+------+------+-------+ | nitroglycerin | Place 1 tablet under | 25 | 11 | 07/0 | | Activ | | (NITROSTAT) 0.4 mg | the tongue every 5 | tablet | | 2/20 | | e | | SL tablet | minutes as needed | | | 20 | | | | | for Chest pain. | | | | | | + + +--------+----+------+------+-------+ | warfarin | Take one tablet by | 30 | 11 | 07/0 | | Activ | | (COUMADIN) 5 mg | mouth every day | tablet | | 2/20 | | e | | tablet | unless otherwise | | | 20 | | | | | directed by | | | | | | | | Shawn.. | | | | | | + + +--------+----+------+------+-------+ | aspirin 81 MG EC | Take 1 tablet by | 90 | 3 | 07/0 | | Activ | | tablet | mouth Daily. | tablet | | 7/20 | | e | | | | | | 20 | | | + + +--------+----+------+------+-------+ | aspirin 325 mg EC | Take 325 mg by mouth | | 0 | | 07/0 | Disco | | tablet | Daily. | | | | 7/20 | ntinu | | | | | | | 20 | ed | | | | | | | | (Reor | | | | | | | | judy | | | | | | | | (no | | | | | | | | Cance | | | | | | | | l Rx | | | | | | | | msg)) | + + +--------+----+------+------+-------+ | nitroglycerin | Place 0.4 mg under | | 0 | | 07/0 | Disco | | (NITROSTAT) 0.4 mg | the tongue every 5 | | | | 2/20 | ntinu | | SL tablet | minutes as needed | | | | 20 | ed | | | for Chest pain. | | | | | (Reor | | | | | | | | judy | | | | | | | | (no | | | | | | | | Cance | | | | | | | | l Rx | | | | | | | | msg)) | + + +--------+----+------+------+-------+ | rosuvastatin | Take 1 tablet by | 30 | 5 | 02/2 | 07/0 | Disco | | (CRESTOR) 20 mg | mouth nightly. | tablet | | 1/20 | 2/20 | ntinu | | tabletIndications: | | | | 20 | 20 | ed | | CAD, multiple vessel | | | | | | (Reor | | | | | | | | judy | | | | | | | | (no | | | | | | | | Cance | | | | | | | | l Rx | | | | | | | | msg)) | + + +--------+----+------+------+-------+ | apixaban (ELIQUIS) | Take 1 tablet by | 60 | 5 | 07/0 | 07/0 | Disco | | 2.5 mg tablet | mouth 2 times daily. | tablet | | 2/20 | 2/20 | ntinu | | | | | | 20 | 20 | ed | | | | | | | | (Alte | | | | | | | | rnate | | | | | | | | | | | | | | | | thera | | | | | | | | py) | + + +--------+----+------+------+-------+ | nitroglycerin | Place 1 tablet under | 25 | 11 | 07/0 | 07/0 | Disco | | (NITROSTAT) 0.4 mg | the tongue every 5 | tablet | | 2/20 | 2/20 | ntinu | | SL tablet | minutes as needed | | | 20 | 20 | ed | | | for Chest pain Up to | | | | | | | | three doses. If not | | | | | | | | chest pain not | | | | | | | | relieved after three | | | | | | | | consecutive doses, | | | | | | | | call [phone].. | | | | | | + + +--------+----+------+------+-------+ Active Problems + + + | Problem | Noted Date | + + + | Atrial flutter | 12/10/2019 | + + + | Pacemaker reprogramming/check | 10/05/2019 | + + + | Pacemaker, Dual Chamber, MRI Capable, [employer] 10/02/2019 Francis | 10/05/2019 | + + + + + | Overview: Indication: symptomatic bradycardia secondary to | | sinus node dysfunctionAtrial lead repositioned 10/19/2019 by | | Callie Blanco MD | + + + + + | Bradycardia | 10/02/2019 | + + + + + | Overview: Successful dual chamber [employer] / Anderson permanent | | pacemaker implantation, there were no complications, the patient | | tolerated the procedure well. Postop chest x-ray revealed that | | the atrial lead, ventricular lead and pacemaker generator were in | | good position. There is no evidence of pneumothorax. | + + + + + | Syncope | 03/08/2018 | + + + | Sinoatrial node dysfuntion - bradycardia | 03/08/2018 | + + + [...] 00:05, diary was returned, no symptoms were | | reported. Post atrial lead repositioning on 10/19/2019. | + + + + + | Coronary artery disease involving [place] coronary artery of | 03/08/2018 | | [place] heart without angina pectoris | | + + + | HTN (hypertension) | 03/08/2018 | + + + | Retention of urine | 07/30/2014 | + + + + + | Overview: ICD-10 Record update | + + + + + | Hypertrophy of prostate with urinary obstruction | 07/30/2014 | + + + | S/P CABG x 3 - 1991 | 07/30/2014 | + + + | Restless leg syndrome | 07/30/2014 | + + + | CVA (cerebral infarction) - Left Basal Ganglia | 05/10/2012 | + + + + + | Overview: lacunar left basal ganglia | | Problem list energy analyst utility | + + + +---+ | [...] + + | 12/13/ | Telephone | Cardiology | Callie Blanco, | Other | | 2020 | | | MD | | +--------+ + + + + | 12/09/ | Office | Cardiology | Callie Blanco, | Pacemaker | | 2020 | Visit | | MD | reprogramming/check | | | | | | (Primary Dx); New | | | | | | onset a-fib ([facility]); | | | | | | Pacemaker, Dual | | | | | | Chamber, MRI | | | | | | Capable, [employer] | | | | | | 10/02/2019 [place]; | | | | | | Sinoatrial node | | | | | | dysfuntion - | | | | | | bradycardia; CAD, | | | | | | multiple vessel; | | | | | | Coronary artery | | | | | | disease involving | | | | | | [place] coronary | | | | | | artery of [place] | | | | | | heart without angina | | | | | | pectoris | +--------+ + + + + | 12/07/ | Implant | Cardiology | Callie Blanco, | Remote Device | | 2019 | Monitor | | MD | Interrogation | | | | | | (Primary Dx); | | | | | | Pacemaker, Dual | | | | | | Chamber, MRI | | | | | | Capable, [employer] | | | | | | 10/02/2019 Francis; | | | | | | Sinoatrial node | | | | | | dysfuntion - | | | | | | bradycardia | +--------+ + + + + | 12/07/ | Implant | Cardiology | Callie Blanco, | Pacemaker | 2019 | Monitor | | MD | reprogramming/check | | | | | | (Primary Dx); | | | | | | Pacemaker, Dual | | | | | | Chamber, MRI | | | | | | Daniella, [employer] | | | | | | 10/02/2019 Francis; | | | | | | Sinoatrial node | | | | | | dysfuntion - | | | | | | bradycardia | +--------+ + + + + | 12/02/ | Telephone | Cardiology | Callie Blanco, | Results ([place] - 2019 | | | MD | new onset atrial | | | | | | flutter) | +--------+ + + + + | 10/30/ | Refill | Cardiology | Callie Blanco, | Medication Refill | 2019 | | | MD | | +--------+ + + + + | 10/28/ | Procedure | Cardiology | Callie Blanco, | Sinoatrial node | 2019 | visit | | MD | dysfuntion - | | | | | | bradycardia (Primary | | | | | | Dx) | +--------+ + + + + | 10/19/ | Telephone | Cardiology | Callie Blanco, | Patient Education | | 2019 | | | MD | (post pacemaker lead | | | | | | revision | | | | | | precautions) | +--------+ + + + + | 10/18/ | Surgery | Cardiology | Callie Blanco, | CV EP LEAD | | 2019 | | | MD | PLACEMENT/REVISION | +--------+ + + + + | 10/18/ | Hospital | Cardiology | Callie Blanco, | Bradycardia; | | 2019 | Encounter | | MD | Displacement of | | | | | | atrial pacemaker | | | | | | leads, subsequent | | | | | | encounter | +--------+ + + + + | 10/15/ | Clinical | Immediate Care | Luis Valentino | Pre-op testing | | 2019 | Support | | LILI Guillen | | +--------+ + + + + | 10/13/ | Virtual | Cardiology | Callie Blanco, | Bradycardia (Primary | | 2019 | Office | | MD | Dx); Coronary | | | Visit | | | artery disease | | | | | | involving [place] | | | | | | coronary artery of | | | | | | [place] heart without | | | | | [...] testing | +--------+ + + + + | 10/12/ | Procedure | Cardiology | Callie Blanco, | Pacemaker | | 2019 | visit | | MD | reprogramming/check | | | | | | (Primary Dx); | | | | | | Pacemaker, Dual | | | | | | Chamber, MRI | | | | | | Capable, [employer] | | | | | | 10/02/2019 Francis; | | | | | | Sinoatrial node | | | | | | dysfuntion - | | | | | | bradycardia | +--------+ + + + + | 10/12/ | Hospital | Radiology | Callie Blanco, | Displacement of | 2019 | Encounter | | MD | atrial pacemaker | | | | | | leads, initial | | | | | | encounter; | | | | | | Sinoatrial node | | | | | | dysfuntion - | | | | | | bradycardia; | | | | | | Pacemaker, Dual | | | | | | Chamber, MRI | | | | | | Capable, [employer] | | | | | | 10/02/2019 [place] | +--------+ + + + + | 10/11/ | Telephone | Cardiology | Callie Blanco, | Other (Possible | 2019 | | | MD | atrial lead | | | | | | dislodgement) | +--------+ + + + + | 10/07/ | Clinical | Cardiology | Callie Blanco, | Sinoatrial node | 2019 | Support | | MD | dysfuntion - | | | | | | bradycardia (Primary | | | | | | Dx); Pacemaker, | | | | | | Dual Chamber, MRI | | | | | | Capable, [employer] | | | | | | 10/02/2019 [place] | +--------+ + + + + | 10/04/ | Telephone | Cardiology | Callie Blanco, | Other (Pacemaker | | 2020 | | | MD | precautions call.) | +--------+ + + + + from [...] + + + | Blood Pressure | 122/62 | 12/10/2019 3:23 PM | | | | | PDT | | + + + + + | Pulse | 66 | 12/10/2019 3:23 PM | | | | | PDT | | + + + + + | Temperature | 36.8 C (98.2 F) | 10/29/2019 1:44 PM | | | | | PDT | | + + + + + | Respiratory Rate | 18 | 12/10/2019 3:23 PM | | | | | PDT | | + + + + + | Oxygen Saturation | 98% | 10/19/2019 3:30 PM | | | | | PDT | | + + + + + | Inhaled Oxygen | - | - | | | Concentration | | | | + + + + + | Weight | 94.8 kg (209 lb) | 12/10/2019 3:23 PM | | | | | PDT | | + + + + + | Height | 185.4 cm (6' 1") | 12/10/2019 3:23 PM | | | | | PDT | | + + + + + | Body Mass Index | 27.57 | 12/10/2019 3:23 PM | | | | | PDT | | + + + + + Plan of Treatment +--------+---------+ + + + | Date | Type | Specialty | Care Team | Description | +--------+---------+ + + + | 01/20/ | Office | Cardiology | Callie Blanco, | | | 2019 | Visit | | MD [address] | | | | | | [place], | | | | | | [place] [address] | | | | | | [phone] | | | | | | | | +--------+---------+ + + + | 02/25/ | Office | Cardiology | ShawncarlasamCallie, | | | 2020 | Visit | | MD [address] | | | | | | [place], | | | | | | [place] [address] | | | | | | [phone] | | | | | | | | +--------+---------+ + + + + + + + + | Health Maintenance | Due Date | Last | Comments | | | | Done | | + + + + + | Medication | | | | | Management | 5 | | | + + [...] | 0 | | | | of 1 - PPSV23) | | | | + + + + + | Vaccine: Zoster (2 | | 04/08/20 | | | of 3) | 7 | 07 | | + + + + + | Med Mgmt: Uric Acid | | 02/29/20 | | | | 6 | 15, | | | | | 09/09/19 | | | | | 15, | | | | | 11/17/19 | | | | | 14 | | + + + + + | Adult Annual | | | | | Wellness Visit | 8 | | | + + + + + | Hemoglobin A1c | | 03/10/20 | | | Screening | 9 | 18, | | | | | 09/09/19 | | | | | 15, | | | | | 11/17/19 | | | | | 14 | | + + + + + | Med Mgmt: INR | | 10/02/19 | | | | 0 | 20 | | + + + + + | Vaccine: Influenza | | 03/27/20 | | | (#1) | 0 | 18, | | | | | 03/20/20 | | | | | 17, | | | | | 03/20/20 | | | | | 10 | | + + + + + | Med Mgmt: TSH | | 07/31/19 | | | | 1 | 20, | | | | | 12/09/19 | | | | | 19, | | | | | 03/08/20 | | | | | 18, | | | | | Addition | | | | | al | | | | | history | | | | | exists | | + + + + + | Med Mgmt: Cr | | 10/03/19 | | | | 1 | 20, | | | | | 10/02/19 | | | | | 20, | | | | | 08/24/19 | | | | | 20, | | | | | Addition | | | | | al | | | | | history | | | | | exists | | + + + + + | Med Mgmt: K | | 10/03/19 | | | | 1 | 20, | | | | | 10/02/19 | | | | | 20, | | | | | 08/24/19 | | | | | 20, | | | | | Addition | | | | | al | | | | | history | | | | | exists | | + + + + + | Med Mgmt: Na | | 10/03/19 | | | | 1 | 20, | | | | | 10/02/19 | | | | | 20, | | | | | 08/24/19 | | | | | 20, | | | | | Addition | | | | | al | | | | | history | | | | | exists | | + + + + + | Med Mgmt: eGFR | | 10/03/19 | | | | 1 | 20, | | | | | 10/02/19 | | | | | 20, | | | | | 08/24/19 | | | | | 20, | | | | | Addition | | | | | al | | | | | history | | | | | exists | | + + + + + Implants + +--------+------+ +--------+--------+--------+ | Implanted | Type | Area | Manufacture | Device | Shelf | Model | | | | | r | | Expira | / | | | | | | Identi | tion | Serial | | | | | | fier | Date | / Lot | + +--------+------+ +--------+--------+--------+ | Lead Tendril Pacing Sts 52cm | Lead | | [employer] | [id number] | 08/07/ | [id number] | | - [id number]: Qty: 1 | | | MEDICAL - | [id number] | 2022 | /52 | | on 10/02/2019 by Francis, | | | FELICE | 87 | | /[id number] | | MD Callie at [facility] | | | | | | [id number] / | | [facility] | | | | | | | + +--------+------+ +--------+--------+--------+ | Lead Tendril Pacing Sts 46cm | Lead | | [employer] | [id number] | 07/10/ | [id number] | | - [id number]: Qty: 1 | | | MEDICAL - | [id number] | 2022 | /46 | | on 10/02/2019 by Francis, | | | FELICE | 70 | | /[id number] | | MD Callie at [facility] | | | | | | [id number] / | | [facility] | | | | | | | + +--------+------+ +--------+--------+--------+ | Pacemaker,Dual | Pacema | | [employer] | | | [id number] | | Chamber-10/02/2019Implanted: | ker | | MEDICAL - | | | ASSURI | | Qty: 1 on 10/02/2019 by | | | FELICE | | | TY MRI | | Callie Blanco MD | | | | | | | | | | | | | | /[id number] | | | | | | | | 01 / | + +--------+------+ +--------+--------+--------+ | Assurity Mri Pacemaker | Pacema | | | | | | | GeneratorImplanted: Qty: 1 on | ker | | | | | | | 10/02/2019 by Francis, | | | | | | | | MD Callie at [facility] | | | | | | | | [facility] | | | | | | | + +--------+------+ +--------+--------+--------+ + + | Description:GENERATOR | + + Procedures + +--------+ + + + | Procedure Name | Priori | Date/Time | Associated Diagnosis | Comments | | | ty | | | | + +--------+ + + + | ECG 12 LEAD | Routin | 12/10/2019 | New onset a-fib | Results for this | | | e | 3:27 PM | (HCC) | procedure are in the | | | | PDT | | results section. | + +--------+ + + + | DEVICE INTERROGATION | Routin | 12/10/2019 | Pacemaker | Results for this | | | e | 12:00 AM | reprogramming/check | procedure are in the | | | | PDT | Pacemaker, Dual | results section. | | | | | Chamber, MRI | | | | | | Capable, [employer] | | | | | | 10/02/2019 [place] | | | | | | Sinoatrial [...] | | | | | | 10/02/2019 [place] | | | | | | Sinoatrial [...] | | | 10/02/2019 [place] | | | | | | Sinoatrial node | | | | | | dysfuntion - | | | | | | bradycardia | | + +--------+ + + + from Last 3 Months Results ECG 12 lead (12/10/2019 3:27 PM PDT)Only the most recent of 3 results within the time alonso od is included. + + + + + + | Component | Value | Ref Range | Performed | Pathologist | | | | | At | Signature | + + + + + + | VENTRICULAR | 67 | BPM | [facility] | | | RATE EKG | | | | | + + + + + + | ATRIAL RATE | 67 | BPM | [facility] | | + + + + + + | P-R | 148 | ms | [facility] | | | INTERVAL | | | | | + + + + + + | QRS | 192 | ms | [facility] | | | DURATION | | | | | + + + + + + | Q-T | 494 | ms | [facility] | | | INTERVAL | | | | | + + + + + + | Q-T | 521 | ms | [facility] | | | INTERVAL | | | | | | (CORRECTED) | | | | | + + + + + + | QRS AXIS | 89 | degrees | [facility] | | + + + + + + | T AXIS | -58 | degrees | [facility] | | + + + + + + | INTERPRETAT | Atrial-sensed | | [facility] | | | ION TEXT | ventricular-paced | | | | | | rhythmAbnormal ECGWhen | | | | | | compared with ECG of | | | | | | 19-OCT-2019 13:00,Vent. | | | | | | rate has decreased BY | | | | | | 33 BPMConfirmed by | | | | | | FRANCIS SIMMONS, CALLIE | | | | | | ([id number]) on 12/10/2019 | | | | | | 3:34:23 PM | | | | + + [...] | | | + +---------+ + + Device Interrogation (12/10/2019 12:00 AM PDT) + + + | Narrative | Performed At | + + + | Callie | [facility] | | MD Francis 12/10/2019 4:24 PM PATIENT NAME: Wilmer Will | | | Kathrin : 1935: AGE: 83 y.o. Pacemaker Evaluation | | | Report December 10, 2019 Reason for evaluation: requested due to atrial | | | arrhythmiaIndication for pacemaker: Sinoatrial node dysfunction (HCC) | | | (I49.5, 427.81); Pacemaker (Z95.0, V45.01); Pacemaker | | | reprogramming/check (Z45.018, V53.31) Patient was seated and/or | | | reclined and device was interrogated. Pacemaker parameters, battery | | | status, percentages pacing and significant arrhythmias were reviewed. | | | Heart rate histograms were assessed for adequate heart rate response | | | and any alerts reviewed. Appropriate lead impedance testing was | | | performed. Pacing impedances were reviewed for any significant | | | changes. Sensing tests were performed by decreasing LRL. Adequacy of | | | pacing thresholds were tested by increasing LRL for each lead and | | | recorded for loss of capture. Final outputs were assessed for adequate | | | safety margins. Please see the scanned [facility] report and device PDF | | | for further details.Data collected by Lawanda Turcios RN Underlying | | | rhythm: sinus bradycardia with long first degree AV block.12 mode | | | switch episodes accounting for <1% of the time. The longest occurred | | | 11/13/2019 at 10:03 AM for 34 minutes 56 seconds. EGM is consistent with | | | atrial flutter with variable conduction with paced rate 80-120 | | | beats.0 ventricular high rate episodes. PVC singles 11,000 | | | PVC singles 11,000/monthPVC runs 57 PVC runs | | | 57/monthHistogram good. Battery longevity 9.3-10.1 years.Normal and | | | stable device function.AV delay changed from 200/180 + 200 to 200/200 | | | + 200 to promote intrinsic ventricular events. AF suppression turned | | | on with max rate 110, AMS base rate from 80 to 70. Rate response on at | | | 120 beats. Atrial lead to auto capture.Quarterly remote monitoring. | | | Device interrogation due in office in 12 months. | | | | | |Underlying rhythm: sinus bradycardia with long first degree AV | | |block. | | |12 mode switch episodes accounting for <1% of the time. The | | |longest occurred 11/13/2019 at 10:03 AM for 34 minutes 56 seconds. | | |EGM is consistent with atrial flutter with variable conduction | | |with paced rate 80-120 beats. | | |0 ventricular high rate episodes. | | |PVC singles 11,000 PVC singles 11,000/month | | |PVC runs 57 PVC runs 57/month | | |Histogram good. Battery longevity 9.3-10.1 years. | | |Normal and stable device function. | | |AV delay changed from 200/180 + 200 to 200/200 + 200 to promote | | |intrinsic ventricular events. AF suppression turned on with max | | |rate 110, AMS base rate from 80 to 70. Rate response on at 120 | | |beats. Atrial lead to auto capture. | | |Quarterly remote monitoring. | | |Device interrogation due in office in 12 months. | | | | | | | | + + + + + | Procedure Note | + + | Callie Blanco MD - 12/10/2019 3:00 PM PDT PATIENT NAME: Wilmer Pinon | | : 1935: AGE: 83 y.o.Pacemaker Evaluation ReportJuly 2019Reason for | | evaluation: requested due to atrial arrhythmiaIndication for pacemaker: Sinoatrial node | | dysfunction (HCC) (I49.5, 427.81); Pacemaker (Z95.0, V45.01); Pacemaker | | reprogramming/check (Z45.018, V53.31)Patient was seated and/or reclined and device was | | interrogated. Pacemaker parameters, battery status, percentages pacing and significant | | arrhythmias were reviewed. Heart rate histograms were assessed for adequate heart rate | | response and any alerts reviewed. Appropriate lead impedance testing was performed. | | Pacing impedances were reviewed for any significant changes. Sensing tests were | | performed by decreasing LRL. Adequacy of pacing thresholds were tested by increasing LRL | | for each lead and recorded for loss of capture. Final outputs were assessed for | | adequate safety margins.Please see the scanned [facility] report and device PDF for further | | details.Data collected by Lawanda Turcios RNUnderlying rhythm: sinus bradycardia with | | long first degree AV block.12 mode switch episodes accounting for <1% of the time. The | | longest occurred 11/13/2019 at 10:03 AM for 34 minutes 56 seconds. EGM is consistent with | | atrial flutter with variable conduction with paced rate 80-120 beats.0 ventricular high | | rate episodes. PVC singles 11,000 PVC singles 11,000/monthPVC runs 57 | | PVC runs 57/monthHistogram good. Battery longevity 9.3-10.1 years.Normal and stable | | device function.AV delay changed from 200/180 + 200 to 200/200 + 200 to promote | | intrinsic ventricular events. AF suppression turned on with max rate 110, AMS base rate | | from 80 to 70. Rate response on at 120 beats. Atrial lead to auto capture.Quarterly | | remote monitoring. Device interrogation due in office in 12 months. | |0 ventricular high rate episodes. | |PVC singles 11,000 PVC singles 11,000/month | |PVC runs 57 PVC runs 57/month | |Histogram good. Battery longevity 9.3-10.1 years. | |Normal and stable device function. | |AV delay changed from 200/180 + 200 to 200/200 + 200 to promote intrinsic ventricular event s. AF suppression turned on with max rate 110, AMS base rate from 80 to 70. Rate response on at 120 beats. Atrial lead to auto capture. | |Quarterly remote monitoring. | |Device interrogation due in office in 12 months. | + + + +---------+ + + | Performing | Address | City/State/Zipcode | Phone Number | | Organization | | | | + +---------+ + + | [facility] | | | | + +---------+ + + Device Interrogation - Remote (12/08/2019 11:59 PM PDT)Only the most recent of 2 results wi thin the time period is included. + + + | Narrative | Performed At | + + + | Callie | [facility] | | MD Francis 12/03/2019 10:04 AMDate of Remote Interrogation: | | | 11/03/2019 Refer to [facility] documentation and remote PDF scanned into | | | [facility] for remote interrogation results. Data collected [...] Chest PA and Lateral (10/19/2019 11:37 AM PDT)Only the most recent of 2 results within t he time period is included. + + | Specimen | + + [...] IMAGING | | PACEMAKER IMPLANTATION PATIENT NAME: Wilmre Pinon : | | | 1935: AGE: 83 y.o.MEDICAL RECORD NUMBER: | | | [id number] PRIMARY CARE:ROGER DumontURGEON:Callie | | | MD Francis DATE OF PROCEDURE: 10/19/2019 PROCEDURES | | | PERFORMED:1. Atrial lead repositioning INDICATIONS: 1. Atrial | | | lead dislodgment DESCRIPTION OF PROCEDURE: After informed consent was | | | obtained, the patient was taken to the laborer wrecking and salvaging. 1 g of cefazolin | | | was given intravenously. Patient was hooked up to EKG, pulse | | | oximetry and blood pressure monitoring. All parameters were kept | | | stable during procedure. The [employer] pacemaker school admissions representative was | | | present in [...] moderate sedation with | | | continuous alom-ik-ckmr attendance. My intra-service time was 45 | [...] [employer], model #: 2272, serial #: [id number]. B. Atrial | | | lead: [employer], length 46 cm, model #: 8 TC, serial #: [id number]. | | | C. Ventricular lead: [employer], length 52 cm, model #: 8 TC, | | | serial #: [id number]. PACEMAKER TESTING: A. Atrial lead: Sensing 2 | | | mV, threshold 1 V at 0.4 ms, resistance 30 ohms. B. Ventricular | | | lead: Sensing 10.8 mV, threshold 0.75 V at 0.4 ms, resistance 490 | | | ohms. PACEMAKER TESTING: Mode: DDD. Lower rate limit: 60 Ppm. Upper | | | limit: 120 Ppm. Callie Blanco MD10/19/2019 12:19 PM | | |Dermabond. Pacemaker interrogation and programming were performed with | | |details as mentioned below. | | | | | |Estimated blood loss was 10 cc mL. I reviewed the patient's pre-sedation | | |assessment and vital signs, supervised and directed the administration of | | |moderate sedation with continuous [id number] attendance. My | | |intra-service time was [...] St. Ye[employer], model #: 2272, serial #: [id number]. | | | | | |B. Atrial lead: St. Yeison, length 46 cm, model #: 8 TC, serial #: [id number] | | |[id number]. | | | | | |C. Ventricular lead: St. Yeison, length 52 cm, model #: 8 TC, serial #: | | |[id number]. | | | | | |PACEMAKER TESTING: [...] | | | | | | | |Callie Blanco MD | | |10/19/2019 12:19 PM | | | | | | | | + + -+ + +---------+ + + | Performing | Address | City/State[facility] | Phone Number | | Organization | | | | + +---------+ + + | [facility] | | | | + +---------+ + + Coronavirus (COVID-19) NAAT (10/16/2019 2:27 PM PDT) [...] + + | Performed at: [facility] [address] [facility] [place] [facility] REFERENCE LAB | | [id number] Iuss Acoustic Analyst: Ervin Correa MD, Phone: [phone] | [facility] | + + + + + + + + | Performing | Address | City/State/Zipcode | Phone Number | | Organization | | | | + + + + + | REFERENCE LAB | [address] | [place], [place] | [phone] | | [facility] | [place] | [phone] | | + + + + + from Last 3 Months Insurance + +--------+ +--------+ +---------+--------+ | Payer | Benefi | Subscriber | Effect | Phone | Address | Type | | | t Plan | ID | malik | | | | | | / | | Dates | | | | | | Group | | | | | | + +--------+ +--------+ +---------+--------+ | [employer] | REGENC | [id number] | 10/09/19 | | | Medica | | | [place] | 4 | 20-Pre | | | re | | | MDCR | | sent | | | | | | PPO | | | | | | + +--------+ +--------+ +---------+--------+ | CIGNA | CIGNA | [id number] | | [phone] | | Indemn | | | MDCR [...] al/Fam | | 1936 | [phone] | [place] [address] | | | clifford | | | 1 (Home) | | + +--------+ +--------+ + + Advance Directives + + + + + | Type | Date Recorded | Patient | Explanation | | | | Gantry Crane Operator | | + + + + + | Power of | | | | | Specialties Operator | | | | + + + + + | Power of | | | | | Specialties Operator | | | | + + + + + | Advance | 07/30/2014 10:38 | | Adv Dir. & Durable Power of | | Directive | AM | | Specialties Operator for Health Care | + + + + + + + + + + | Code Status | Date | Date | Comments | | | Activated | Inactivated | | + + + + + | DNR (No | 10/02/2019 | 10/03/2019 | Bipap, pressors, ACLS medications are allowed | | Code) | 2:26 PM | 4:05 PM | | + + + + + + + +---+ | RN or MD to pronounce: | RN may | | | | pronounce | | + + +---+ + + + +---+ | | | | | + + + +---+ | Partial | 03/10/2018 | 03/11/2018 | | | Code | 10:03 PM | 12:20 PM | | + + + +---+ [...]
--- OUTSIDE RECORDS SUMMARY | ~2020-01-03 | XMS | Encounter Summary ---
Demographics + + + | Address | [address] | | | [place] [address] | + + + | Home Phone | | + + + | Preferred Language | Unknown | + + + | Marital Status | | + + + | Holiness Affiliation | 1077 | + + + | Race | Unknown | + + + | Ethnic Group | Unknown | + + + Author + + + | Author | [facility] | | | and [place] | + + + | Organization | [facility] | | [...] Team Providers + +------+ + | Care Carpenters Name | Role | Phone | + +------+ + | Ana Maria Yuan MD | PCP | | + +------+ + Reason for Visit + + + | Reason | Comments | + + + | Atrial Fibrillation | | + + + Follow Up [...] | | | | | Heart | nAa Maria Stewart MD | Cardiology | | | | | failure, | [address] | | | | | unspecified | [place], | [place], | | | | | (HCC) | [place] | [place] | | | | | Essential | [address] | [address] | | | | | (primary) | Phone: | Phone: | | | | | hypertension | [phone] | [phone] | | | | | | Fax: | Fax: | | | | | Atherosclero | [phone] | [phone] | | | | | tic heart | | | | | | | disease of | | | | | | | morongo | | | | | | | [...] Description | +--------+---------+ + + + | 12/09/ | Office | [facility] | Callie Blanco, | Pacemaker | | 2019 | Visit | CARDIOLOGY [address] | [address] [facility] | reprogramming/check | | | | [place], | [place], | (Primary Dx); New | | | | [place] [address] | [place] [address] | onset a-fib (HCC); | | | | [phone] | [phone] | Pacemaker, Dual | | | | [...] involving | | | | | | morongo coronary | | | | | | artery of morongo | | | | | | heart without angina | | | | | | pectoris | +--------+---------+ + + + Social History [...] Instructions Patient Instructions Eva Live RN - 12/10/2019 3:00 PM PDT Start taking Ranexa 500 mg tablets twice daily. Take one tablet by mouth two times per day. Please call your local Coumadin Clinic to establish care before you pharmacy picking tech your Warfarin p rescription. We have prescribed your warfarin with a goal INR range of 2.0-3.0 for atrial fl utter. Take Nitroglycerin 0.4 mg tablets as needed. Take one tablet under tongue as needed for amando st pain, may repeat every 5 minutes up to 3 doses. If no relief after 3rd dose, call 911. Increase Rosuvastatin. Take one 40 mg tablet by mouth every evening. You may finish your cu rrent supply of 20 mg tablets by taking two tablets each night until you pharmacy picking tech your new pr escription. You will need blood drawn in 3 months. Blood test: Fasting- 12 hours prior to test, no food, no caffiene, water is ok and encourag ed Date Due: 3 months Where to go for labs: Follow up appointment: 6 weeks Provider: Sagrario Reyes PA-C Date: Check-In Time: documented in this encounter Progress Notes Callie Blanco MD - 12/10/2019 3:00 PM PDTFormatting of this note might be different f rom the original. PATIENT NAME: Wilmer Pinon : 1935: AGE: 83 y.o. PRIMARY CARE: Ana Maria Yuan MD OUTPATIENT FOLLOW UP VISIT Date of Service: 12/10/2019 HISTORY OF PRESENT ILLNESS: Wilmer Pinon is a 83 y.o. male with a history of asymptomatic irreversible bradycardia , coronary artery disease, post CABG 1990,stage III chronic kidney disease, essential hype rtension and mixed hyperlipidemia. He is being seen today for follow up and device interr ogation and discuss new onset atrial flutter. He was last seen virtually on 10/14/19 at which time patient was schedule for atrial lead rep ositioning due to lead dislodgment. Since that time, patient pacemaker picked up new onset atrial flutter on 11/02/19. Today, patient complains of chest pain and shortness of breath. Patient states he takes nit roglycerin twice a day to relieve the pain. There is no palpitation dizziness or lightheaded ness. There is no ankle or leg swelling. Patient can sleep on one pillow at night without di fficulty breathing. MEDICAL, SURGICAL, AND PERSONAL HISTORY Past Medical, Surgical, Family, and Social History are reviewed in EPIC. CURRENT PROBLEMS Patient Active Problem List Diagnosis Syncope Sinoatrial node dysfuntion - bradycardia Coronary artery disease involving morongo coronary artery of morongo heart without angina pectoris HTN (hypertension) Retention of urine Hypertrophy of prostate with urinary obstruction CHF (congestive heart failure) CAD, multiple vessel Nonalcoholic steatohepatitis Ischemic cardiomyopathy - ECHO Jun 2014 EF 55-60% CVA (cerebral infarction) - Left Basal Ganglia Polycythemia vera Diabetes S/P CABG x 3 - 1990 Restless leg syndrome Bradycardia Pacemaker reprogramming/check Pacemaker, Dual Chamber, MRI Capable, St Yeison 10/02/2019 [facility] CURRENT MEDICATIONS Current Outpatient Medications Medication Sig Dispense Refill acetaminophen (TYLENOL) [address] 650 mg rectally every 4 hours as neede d for Fever. allopurinol (ZYLOPRIM) 100 mg tablet Take 100 mg by mouth Daily. amLODIPine (NORVASC) 5 mg tablet TAKE ONE TABLET BY MOUTH EVERY DAY 90 tablet 3 aspirin 325 mg EC [...] tablet Take 1 tablet by mouth Daily. (Patient taking differen tly: Take 10 mg by mouth Daily Patient takes 1/2 tablet..) 30 tablet 5 No current facility-administered medications for this visit. ALLERGIES Allergies Allergen Reactions Hydrocodone Other (See Comments) "I go into spasms" Oxycodone Other (See Comments) "I go into spasms" Tramadol Other (See Comments) "I go into spasms" Tramadol Caused spasms and pt to be in hospital Atorvastatin Myalgia ROS Review of Systems Constitutional: Negative for malaise/fatigue. Respiratory: Positive for shortness of breath. Cardiovascular: Positive for chest pain. Negative for palpitations and leg swelling. Neurological: Negative for dizziness and weakness. Lightheaded = Yes OBJECTIVE: PHYSICAL EXAM BP 122/62 | Pulse 66 | Resp 18 | Ht 1.854 m (6' 1") | Wt 94.8 kg (209 lb) | BMI 27.57 kg/m Physical Exam Constitutional: He appears well-developed and well-nourished. No distress. Elderly male individual accompanied by , with no acute distress. Neck: Normal carotid pulses, no hepatojugular reflux and no JVD present. Carotid bruit is n ot present. Cardiovascular: Normal rate, regular rhythm, S1 normal, S2 normal, normal heart sounds, int act distal pulses and normal pulses. PMI is not displaced. Exam reveals no gallop, no S3, no S4 and no friction rub. No murmur heard. Pulses: Carotid pulses are 2+ on the right side and 2+ on the left side. Dorsalis pedis pulses are 2+ on the right side and 2+ on the left side. Pulmonary/Chest: Effort normal and breath sounds normal. No accessory muscle usage. No resp iratory distress. He has no wheezes. He has no rhonchi. He has no rales. Abdominal: Normal appearance, normal aorta and bowel sounds are normal. He exhibits no abdo serafin bruit. There is no hepatosplenomegaly. There is no abdominal tenderness. Musculoskeletal: General: No edema. Neurological: He is alert. Gait normal. Skin: Skin is warm and dry. Psychiatric: He has a normal mood and affect. His mood appears not anxious. He does not exh ibit a depressed mood. ECG: Atrial-sense ventricular-paced rhythm. LAB RESULTS reviewed during visit today primarily from : LIPID Lab Results Component Value Date CHOL 164 02/28/2015 TRIG 295 (A) 02/28/2015 HDL 29.2 (A) 02/28/2015 LDL 91 09/08/2014 CHOLHDL 5.6 (A) 02/28/2015 CHEMISTRY Lab Results Component Value Date GLU 128 (H) 10/03/2019 GLUEX 162 (A) 08/24/2019 NA 140 10/03/2019 NAEX 142 08/24/2019 K 4.2 10/03/2019 KEX 4.2 08/24/2019 CL 107 10/03/2019 CLEX 105 08/24/2019 CO2 26 10/03/2019 CO2EX 26 08/24/2019 CALCIUM 9.6 10/03/2019 ALKPHOS 50 03/08/2018 AST 20 03/08/2018 ASTEX 19 12/08/2018 ALT 12 03/08/2018 ALTEX 14 12/08/2018 BILITOT 0.9 03/08/2018 CREA 1.68 (H) 10/03/2019 BUN 22 10/03/2019 EGFR 52 (A) 02/28/2015 EGFREX 31 08/24/2019 CREEX 2.04 (A) 08/24/2019 HEMATOLOGY Lab Results Component Value Date WBC 10.2 10/03/2019 WBCEX 7.9 12/08/2018 HGB 12.1 (L) 10/03/2019 HGBEX 12.9 (A) 12/08/2018 HCT 35.4 (L) 10/03/2019 HCTEX 39.0 (A) 12/08/2018 PLT 213 10/03/2019 PLTEX 227 12/08/2018 Above data and testing is reviewed this visit; testing below is historical data unless othe rwise specified. ASSESSMENT: 1. New onset atrial flutter A. Patient pacemaker picked up new onset atrial flutter on 11/02/19. Today, patient complains of chest pain and shortness of breath. Patient states he takes ni troglycerin twice a day to relieve the pain. His risks for stroke include: Hx of HTN (1) and Age >/= 75 y.o.(2). His [id number]-UMHv score is 3, which gives an estimated 3.2% risk of stroke per year in atrial fibrillation. His bl eeding risks include: HTN (1) and >64 YO (1) . His HASBLED score is 2-3, which confers an i ntermediate risk (4.1-5.8%) risk of bleed per year. 2. Coronary artery disease A. Post CABG x3 BAILEY to LAD, arterial graft to OM and SVG to the PD A on 1990. B. Post CABG x 3 in April 1991. C. Left heart catheterization 03/27/2012 shows left main is very short, almost separate os tia for the LAD and left circumflex artery, LAD is 100% occluded at the ostium and the proxi mal, mid and distal LAD are filled with a patent BAILEY to the LAD. All 3 diagonals are absent , left circumflex artery is diffusely diseased in the proximal and mid part, more than 90% l esions, first and second obtuse marginal are tiny with diffuse disease, but the third obtus e marginal is patent with a free IM arterial graft to the third obtuse marginal, RCA proxima lly 80% to 90% lesion, mid is 100% occluded, then the right PDA is filled with re-opened SVG to the right PDA. The right AV groove artery is normal size with no significant stenosis. I t gives 3 small right posterolateral arteries, all small size with no significant stenosis, right dominant circulation. D. Nuclear stress test 08/25/2019 shows persantine EKG [...] normal, LVEF by gated SPECT is 50%. E. Patient has been having chest pain and shortness of breath more nitroglyceri n sublingually. 3. Heart failure with preserved ejection fraction [...] echocardiogram on 03/09/2018, no significant changes. B. He has been short of breath on exertion. There is no signs and symptoms of overt congestive heart failure. He is in a class I of [place] [employer] functional class. There is bilateral trace leg swelling on physical examination. 4. Bradycardia, irreversible, asymptomatic. A. Echocardiogram 03/09/2018 shows [...] passed out. He was then admitted to [facility] with profound bradycardia and his carvedilol [...] return ed, no symptoms were reported. D. Successful dual chamber St. Yeison / Anderson permanent pacemaker implantation, there were no complications, the patient tolerated the procedure well. Postop chest x-ray r evealed that the atrial lead, ventricular lead and pacemaker generator were in good position . There is no evidence of pneumothorax on 10/02/19. E. Successful atrial lead repositioning on 10/19/19 by Callie Blanco MD. F. Pace maker interrogation reveals a normal stable functioning device. 5. Hypertension A. Today 12/10/19, blood pressure in office is controlled. 6. Stage IV chronic kidney disease A. EGFR from 10/03/19 is 39. 7. Inactivity; Not addressed today 12/10/19. A. Patient has not been physically active due to chest pain. 8. Hyperlipidemia A. He is taking Crestor 20 mg daily. 9. Medical non compliance. Not addressed today 12/10/19. A. had mentioned she fills his pill box, but he doesn't always take his me dications. PLAN: 1. Increase Crestor 20 mg to 40 mg. Patient has history of CAD. Guidelines recommend high- intensity statin. 2. Start patient on Ranexa 500 mg twice daily treat chest pain. 3. Start patient on Coumadin 5 mg once a day to follow INR of 2.0-3.0 4. Renew nitroglycerin 0.4 mg sublingual. 5. Check LFT and lipid panel in 3 months. 6. Pace maker interrogation reveals a normal stable functioning device. 7. I recommend a therapeutic lifestyle change including walking 30 minutes a day, choosing healthy choices of diet , including DASH diet, weight reduction and 7 hours of high quality sleep a night. 8. Follow-up in 6 weeks. ICorinne, am acting as a scribe on behalf of, and in the presence of Callie vargas MD. I have reviewed and edited this note. Corinne Donnelly Electronic Imaging System Operator 12/10/2019 Callie Ragsdale MD, personally performed the services described in this documentation, as scribed in my presence and it is both accurate and complete. Corinne Donnelly Electronic Imaging System Operator 12/10/2019 3:33 PM PDT Electronically signed by: Callie Blanco MD [facility] 12/10/2019 Portions of this chart may have been created with [employer] voice recognition software. Occasi onal wrong-word or sound-alike substitutions may have occurred due to the inherent clements itations of voice recognition software. Please read the chart carefully and recognize, using context, where these substitutions have occurred documented in this encounter Procedure Notes Callie Blanco MD - 12/10/2019 3:00 PM PDTAssociated Order(s): DEVICE INTERROGATIONPro cedure(s): DEVICE INTERROGATIONPre-Procedure Diagnose(s): Pacemaker reprogramming/check; Pac emaker; Sinoatrial node dysfunction (HCC) PATIENT NAME: Wilmer Pinon : 1935: AGE: 83 y.o. Pacemaker Evaluation Report December 10, 2019 Reason for evaluation: requested due to atrial arrhythmia Indication for pacemaker: Sinoatrial node dysfunction (HCC) (I49.5, 427.81); Pacemaker (Z95.0, V45.01); Pacemaker re programming/check (Z45.018, V53.31) Patient was seated and/or reclined and device was interrogated. Pacemaker parameters, batte ry status, percentages pacing and significant arrhythmias were reviewed. Heart rate histogra ms were assessed for adequate heart rate response and any alerts reviewed. Appropriate lead impedance testing was performed. Pacing impedances were reviewed for any significant changes . Sensing tests were performed by decreasing LRL. Adequacy of pacing thresholds were tested by increasing LRL for each lead and recorded for loss of capture. Final outputs were assesse d for adequate safety margins. Please see the scanned Paceart report and device PDF for further details. Data collected by Lawanda Turcios RN Underlying rhythm: sinus bradycardia with long first degree AV block. 12 mode switch episodes accounting for <1% of the time. The longest occurred 11/13/2019 at 10 :03 AM for 34 minutes 56 seconds. EGM is consistent with atrial flutter with variable conduc tion with paced rate 80-120 beats. 0 ventricular high rate episodes. PVC singles 11,000 PVC singles 11,000/month PVC runs 57 PVC runs 57/month Histogram good. Battery longevity 9.3-10.1 years. Normal and stable device function. AV delay changed from 200/180 + 200 to 200/200 + 200 to promote intrinsic ventricular event s. AF suppression turned on with max rate 110, AMS base rate from 80 to 70. Rate response on at 120 beats. Atrial lead to auto capture. Quarterly remote monitoring. Device interrogation due in office in 12 months. documented in this encounter Plan of Treatment +--------+---------+ + + + | Date | Type | Specialty | Care Team | Description | +--------+---------+ + + + | 01/20/ | Office | Cardiology | Callie Blanco, | | | 2019 | Visit | | MD [address] | | | | | | [place], | | | | | | [place] [address] | | | | | | [phone] | | | | | | | | +--------+---------+ + + + | 02/25/ | Office | Cardiology | Callie Blanco, | | | 2019 | Visit | | MD [address] | | | | | | [place], | | | | | | [place] [address] | | | | | | [phone] | | | | | | | | +--------+---------+ + + + + +------+--------+ + + | Name | Type | Priori | Associated Diagnoses | Order Schedule | | | | ty | | | + +------+--------+ + + | Lipid Panel | Lab | Routin | Coronary artery | Expected: | | | | e | disease involving | 03/11/2020, Expires: | | | | | morongo coronary | 12/09/2020 | | | | | artery of morongo | | | | | | heart without angina | | | | | | pectoris | | + +------+--------+ + + | Hepatic Function | Lab | Routin | Coronary artery | Expected: | | Panel | | e | disease involving | 03/11/2020, Expires: | | | | | morongo coronary | 12/09/2020 | | | | | artery of morongo | | | | | | heart without angina | | | | | | pectoris | | + +------+--------+ + + documented [...] | | | | | | 10/02/2019 [place] | | | | | | Sinoatrial node | | | | | | dysfuntion - | | | | | | bradycardia | | + +--------+ + + + documented in this encounter Results ECG 12 lead (12/10/2019 3:27 PM PDT) + + + + + [...] CALLIE | | | | | | ([id number]) on 12/10/2019 | | | | | [...] | + + + | Callie | BRIAN | | MD [facility] 12/10/2019 4:24 PM [...] of cardiac pacemaker | + + | New onset a-fib (HCC) Atrial fibrillation | + + | Pacemaker, Dual Chamber, MRI Capable, St Yeison 10/02/2019 [facility] Cardiac pacemaker | | in situ | + + | Sinoatrial node dysfuntion - bradycardia Sinoatrial node dysfunction | + + | CAD, multiple vessel Coronary atherosclerosis of unspecified type of vessel, morongo | | or graft | + + | Coronary artery disease involving morongo coronary artery of morongo heart without | | angina pectoris | + + documented in this encounter
--- OUTSIDE RECORDS SUMMARY | ~2020-01-03 | XMS | Encounter Summary ---
Demographics + + + | Address | [address] | | | [place] [address] | + + + | Home Phone | | + + + | Preferred Language | Unknown | + + + | Marital Status | | + + + | Christian Affiliation | 1077 | + + + | Race | Unknown | + + + | Ethnic Group | Unknown | + + + Author + + + | Author | [facility] | | | and [place] | + + + | Organization | [facility] | | | [...] Team Providers + +------+ + | Care Customer Solutions Teammate Name | Role | Phone | + [...] + | 10/09/ | Refill | [facility] [place] | ShawnHans jacobson, | Medication Refill | | 2019 | | CARDIOLOGY [address] | MD [address] [place] | | | | | [place], | [place], | | | | | [place] [address] | [place] [address] | | | | | [phone] | [phone] | | | | | | | [...] | | | | | | [place] [address] | | | | | | [phone] | | | | | | | | +--------+---------+ + + + | 02/25/ | Office | Cardiology | Hans Blanco, | | | 2019 | Visit | | MD [address] | | | | | | [place], | | | | | | [place] [address] | | | | | | [phone] | | | | | | | | +--------+---------+ + + + documented as of this encounter Visit Diagnoses Not on filedocumented in this encounter"
[~2020-01-03 17:45] MED LIST changes: +ADULT LOW DOSE81 MG PO; +CATAPRES0.1 MG PO; +CLONIDINE HCL0.2 MG IV; +GABAPENTIN100 MG PO; +GABAPENTIN300 MG PO; +LISINOPRIL20 MG PO; +MAGNESIUM250 MG PO; +NORVASC5 MG PO; +POTASSIUM99 M1 PO; +RANOLAZINE ER500 MG PO; +ROPINIROLE HCL0.5 MG PO; +ROSUVASTATIN CA20 MG PO; +ROSUVASTATIN CA40 MG PO; +SAW PALMETTO C1 EACH PO; +TORSEMIDE5 MG PO; +TURMERIC 500 M1 EACH PO; +WARFARIN SODIUM5 MG PO; +ZYLOPRIM100 MG PO; -ZYLOPRIM300 MG PO
== END 2020-01-03 20:12 | disposition home or self-care (01) ==
LOC: ED 17:45
DX: G25.3 Myoclonus (principal); G24.9 Dystonia, unspecified; I11.0 Hypertensive heart disease with heart failure; I50.9 Heart failure, unspecified; E11.9 Type 2 diabetes mellitus without complications; E78.5 Hyperlipidemia, unspecified; N40.0 Benign prostatic hyperplasia without lower urinary tract symptoms; F32.9 Major depressive disorder, single episode, unspecified; K21.9 Gastro-esophageal reflux disease without esophagitis; Z86.73 Personal history of transient ischemic attack (TIA), and cerebral infarction without residual deficits; Z87.891 Personal history of nicotine dependence; Z88.5 Allergy status to narcotic agent; Z79.899 Other long term (current) drug therapy; Z79.01 Long term (current) use of anticoagulants; Z79.82 Long term (current) use of aspirin
CPT/HCPCS: 80053; 83735; 85025; 96374; 96375; 99283-25; J1200; J2060; J7040